=== PATIENT | female | born 1995 | race African-American/Black ===

== ENCOUNTER 2018-03-07 23:18 | Emergency (ER) | payer MEDICAID, OTHER, SELFPAY ==
--- NOTE | 2018-03-07 23:43 | ER ---
Nurse's Notes [facility] Name: Edmond Dewitt Age: 22 yrs Sex: Female : 1995 Arrival Date: 03/07/2018 Time: 23:26 Bed 23 Private MD: Diagnosis: Rash and other nonspecific skin eruption Presentation: 03/07 23:40 Presenting complaint: Patient states: she has rash on her breast for 2 days. Transition mg2 of care: patient was not received from another setting of care. Onset of symptoms was March 06, 2018. Risk Assessment: Do you want to hurt yourself or someone else? Patient reports no desire to harm self or others. Initial Sepsis Screen: Does the patient meet any 2 criteria? No. Patient's initial sepsis screen is negative. Does the patient have a suspected source of infection? No. Patient's initial sepsis screen is negative. Care prior to arrival: None. 23:40 Method Of Arrival: Ambulatory mg2 23:40 Acuity: SHADY 5 mg2 Triage Assessment: 23:43 General: Appears in no apparent distress. Behavior is calm, cooperative. 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 - Social history:: Smoking status: Patient/guardian denies using tobacco, Patient uses alcohol, occasionally. Patient/guardian denies using street drugs, IV drugs. - Ebola Screening: : No symptoms or risks identified at this time. Screenin:42 Abuse screen: Denies threats or abuse. Denies injuries from another. Nutritional mg2 screening: No deficits noted. Tuberculosis screening: No symptoms or risk factors identified. Fall Risk None identified. Assessment: 23:42 Pain: Denies pain. Derm: Skin is intact, is healthy with good turgor, Rash noted that mg2 is itchy, red, raised, urticaria, on chest/breast. Vital Signs: 23:40 Pulse 92; Resp 18; Temp 98.6(O); Pulse Ox 97% on R/A; Pain 0/10; mg2 ED Course: 23:26 Patient arrived in ED. ds1 23:28 Lorenzo Burnett [facility] 23:28 Pradip Walker MD is Attending Physician. [facility] 23:38 Donald Villeda, RN is Primary Nurse. mg2 23:40 Triage completed. mg2 23:42 Arm band placed on. mg2 23:43 Patient has correct armband on for positive identification. mg2 23:43 No provider procedures requiring assistance completed. Patient did not have IV access mg2 during this emergency room visit. Administered Medications: No medications were administered Outcome: 23:42 Discharge ordered by MD. [facility] 23:53 Discharged to home ambulatory, with family. mg2 23:53 Condition: stable 23:53 Discharge instructions given to patient, family, Instructed on discharge instructions, follow up and referral plans. medication usage, Demonstrated understanding of instructions, follow-up care, medications, Prescriptions given X 2. 23:54 Patient left the ED. mg2 Signatures: Lorenzo Burnett PA PA Yue Davison ds1 Donald Villeda, RN RN mg2
--- NOTE | 2018-03-07 23:43 | EDPHYS ---
Physician Documentation [facility] Name: Edmond Dewitt Age: 22 yrs Sex: Female : 1995 Arrival Date: 03/07/2018 Time: 23:26 Bed 23 Private MD: ED Physician Pradip Walker HPI: 03/07 23:41 This 22 yrs old Black Female presents to ER via Ambulatory with complaints of Rash. m 23:41 The patient's rash thought to be caused by an unknown cause. The rash is located on the [facility] body diffusely. Onset: The symptoms/episode began/occurred today. Associated signs and symptoms: Pertinent positives: itching, Pertinent negatives: difficulty breathing, fever, nausea, Pain swelling of lips, swelling of throat, swelling of tongue, vomiting, wheezing. Mother states having ongoing issues with scabbing rashes which itch. Symptoms have worsened today. . 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 - Social history:: Smoking status: Patient/guardian denies using tobacco, Patient uses alcohol, occasionally. Patient/guardian denies using street drugs, IV drugs. - Ebola Screening: : No symptoms or risks identified at this time. ROS: 23:41 Constitutional: Negative for fever, chills, and weight loss, Cardiovascular: Negative [facility] for chest pain, palpitations, and edema, Respiratory: Negative for shortness of breath, cough, wheezing, and pleuritic chest pain. 23:41 Skin: Positive for rash. 23:41 All other systems are negative. Exam: 23:41 Constitutional: This is a well developed, well nourished patient who is awake, alert, jmm and in no acute distress. Head/Face: atraumatic. Eyes: EOMI, no conjunctival erythema appreciated ENT: Moist Mucus Membranes Neck: Trachea midline, Supple Chest/axilla: Normal chest wall appearance and motion. Cardiovascular: Regular rate and rhythm. No edema appreciated Respiratory: Normal respirations, no respiratory distress appreciated Abdomen/GI: Non distended, soft Back: Normal ROM 23:41 Skin: multiple scabbing lesions noted to the extremities. Small papular erythematous regions noted to the chest, upper back and upper extremities. . 23:41 Neuro: Orientation: is normal, Mentation: is normal, Memory: is normal. 23:41 Psych: Behavior/mood is pleasant, cooperative. Vital Signs: 23:40 Pulse 92; Resp 18; Temp 98.6(O); Pulse Ox 97% on R/A; Pain 0/10; mg2 MDM: 23:41 Patient medically screened. [facility] 23:42 Data reviewed: vital signs, nurses notes. Counseling: I had a detailed discussion with jodie the patient and/or guardian regarding: the historical points, exam findings, and any diagnostic results supporting the discharge/admit diagnosis, the need for outpatient follow up, to return to the emergency department if symptoms worsen or persist or if there are any questions or concerns that arise at home. Administered Medications: No medications were administered Disposition: 03/08 05:29 Co-signature as Attending Physician, Pradip Walker MD I agree with the assessment and [facility] plan of care. Disposition: 03/07/18 23:42 Discharged to Home. Impression: Rash and other nonspecific skin eruption. - Condition is Stable. - Discharge Instructions: Rash. - Prescriptions for Elimite 5 % Topical Cream - apply 1 application by TOPICAL route one time Wash after 12 hours.; 60 gram. Hydroxyzine HCl 25 mg Oral Tablet - take 1 tablet by ORAL route every 6 hours As needed; 30 tablet. - Medication Reconciliation Form, Thank You Letter, Antibiotic Education, Prescription Opioid Use form. - Follow up: Private Physician; When: 2 - 3 days; Reason: Recheck today's complaints, Continuance of care, Re-evaluation by your physician. Signatures: Lorenzo Burnett PA PA jmm Wadley, Terrence, MD MD 4 Donald Villeda RN RN mg2 Corrections: (The following items were deleted from the chart) 03/07 23:54 23:42 03/07/2018 23:42 Discharged to Home. Impression: Rash and other nonspecific skin mg2 eruption. Condition is Stable. Forms are Medication Reconciliation Form, Thank You Letter, Antibiotic Education, Prescription Opioid Use. Follow up: Private Physician; When: 2 - 3 days; Reason: Recheck today's complaints, Continuance of care, Re-evaluation by your physician. jodie
== END 2018-03-07 23:54 | disposition home or self-care (01) ==
LOC: ER 23:18
DX: R21 Rash and other nonspecific skin eruption (principal); Z79.82 Long term (current) use of aspirin; Z79.899 Other long term (current) drug therapy
CPT/HCPCS: 99281

== ENCOUNTER 2018-04-02 09:45 | Emergency (ER) | payer OTHER ==
[2018-04-02 11:32] LABS: Urine Blood TRACE (NEG); Urine Glucose NEGATIVE (NEG); Urine Protein NEGATIVE (NEG)
--- NOTE | 2018-04-02 11:56 | RAD REPORT ---
EXAM DESCRIPTION: Yves Michael (2 Views)04/02/2018 11:22 am CLINICAL HISTORY: Cough COMPARISON: April 2017 FINDINGS: The lungs appear clear of acute infiltrate. The heart is normal size IMPRESSION: No acute abnormalities displayed
[2018-04-02] MEDS ORDERED: PROMETHAZINE 25 MG/ML VIAL ONE (12:06)
[2018-04-02] MEDS ORDERED: PROMETHAZINE 25 MG TABLET ONE (12:11)
--- NOTE | 2018-04-02 12:19 | ER ---
Nurse's Notes [facility] Name: Edmond Dewitt Age: 23 yrs Sex: Female : 1995 Arrival Date: 04/02/2018 Time: 09:46 Bed 13 Private MD: Apolinar Talavera E Diagnosis: Acute bronchitis Presentation: 04/02 10:05 Presenting complaint: Patient states: Pt. has had a dry cough x 3 days and now her rb1 chest hurts when she is coughing. Pain 8/10. Transition of care: patient was not received from another setting of care. Onset of symptoms was March 30, 2018. Risk Assessment: Do you want to hurt yourself or someone else? Patient reports no desire to harm self or others. Initial Sepsis Screen: Does the patient meet any 2 criteria? No. Patient's initial sepsis screen is negative. Does the patient have a suspected source of infection? No. Patient's initial sepsis screen is negative. Care prior to arrival: None. 10:05 Method Of Arrival: Ambulatory rb1 10:05 Acuity: SHADY 3 rb1 Triage Assessment: 10:06 General: Appears in no apparent distress. comfortable, obese, Behavior is calm, rb1 cooperative, Reports fever for 2-3 days. Pain: Complains of pain in chest Pain currently is 8 out of 10 on a pain scale. Aggravated by coughing. Neuro: Level of Consciousness is awake, alert, obeys commands, Oriented to person, place, time, situation. Cardiovascular: Capillary refill < 3 seconds is brisk in bilateral fingers. Respiratory: Reports cough that is dry, pain with cough Pain is 8 out of 10 on a pain scale. Airway is patent Respiratory effort is even, unlabored, Respiratory pattern is regular, symmetrical. GI: Reports nausea. : No signs and/or symptoms were reported regarding the genitourinary system. Derm: Skin is dry, Skin is normal, Skin temperature is warm. 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 - Social history:: Smoking status: Patient/guardian denies using tobacco. - Ebola Screening: : Patient negative for fever greater than or equal to 101.5 degrees Fahrenheit, and additional compatible Ebola Virus Disease symptoms. Screenin:06 Abuse screen: Denies threats or abuse. Nutritional screening: No deficits noted. rb1 Tuberculosis screening: No symptoms or risk factors identified. Fall Risk None identified. Assessment: 10:06 General: See triage assessment. rb1 11:00 Reassessment: Patient appears in no apparent distress at this time. No changes from rb1 previously documented assessment. 12:00 Reassessment: Pt. c/o of nausea, provider notified. Received order for Phenergan 12.5 rb1 mg PO once. 100% verbal read back. Vital Signs: 10:06 BP 124 / 93; Pulse 73; Resp 19; Temp 99(O); Pulse Ox 100% on R/A; Weight 107.95 kg (R); rb1 Height 5 ft. 2 in. (157.48 cm) (R); Pain 8/10; 11:00 BP 135 / 83; Pulse 73; Resp 17; Pulse Ox 100% on R/A; rb1 12:00 BP 126 / 85; Pulse 70; Resp 19; Pulse Ox 100% ; Pain 7/10; rb1 12:39 BP 126 / 85; Pulse 77; Resp 17; Pulse Ox 100% on R/A; rb1 10:06 Body Mass Index 43.53 (107.95 kg, 157.48 cm) rb1 12:00 Pt. does not want anything for pain at this time. rb1 ED Course: 09:46 Patient arrived in ED. sb2 09:47 Apolinar Talavera MD is Private Physician. sb2 10:06 Jarvis Worrell LVN is Primary Nurse. em 10:06 Arm band placed on right wrist. rb1 10:06 Patient has correct armband on for positive identification. Bed in low position. Call rb1 light in reach. Side rails up X 1. Pulse ox on. NIBP on. 10:10 Mickail, Lorenzo, PA is PHCP. jmm 10:10 Kaiser Foss MD is Attending Physician. m 10:10 Triage completed. rb1 10:18 Jenn Nevarez, RN is Primary Nurse. rb1 11:00 Warm blanket given. Pillow given. jp3 11:20 Chest Pa And Lat (2 Views) In Process Unspecified. EDMS 11:55 EKG done, by ED staff, reviewed by Lorenzo WHITE. jp3 12:17 Apolinar Talavera MD is Referral Physician. jmm 12:34 Diet: Patient given snack. Tolerated well. jp3 12:41 No provider procedures requiring assistance completed. Patient did not have IV access rb1 during this emergency room visit. Administered Medications: 12:07 Drug: Phenergan 12.5 mg Route: PO; rb1 12:40 Follow up: Response: No adverse reaction; Nausea is decreased rb1 Outcome: 12:17 Discharge ordered by MD. jmm 12:41 Patient left the ED. rb1 12:41 Discharged to home ambulatory. rb1 12:41 Condition: stable 12:41 Discharge instructions given to patient, Instructed on discharge instructions, follow up and referral plans. medication usage, Demonstrated understanding of instructions, follow-up care, medications, Prescriptions given X 2. Signatures: Dispatcher [employer]IN Lorenzo Burnett PA PA [facility] Jarvis Worrell, MANAGER ONLINE MANAGER ONLINE em Jenn Nevraez, RN RN rb1 Gracy Deleon sb2 Chavez Felix jp3 Corrections: (The following items were deleted from the chart) 12:53 12:51 Patient left the ED. rb1 rb1
--- NOTE | 2018-04-02 12:19 | EDPHYS ---
Physician Documentation [facility] Name: Edmond Dewitt Age: 23 yrs Sex: Female : 1995 Arrival Date: 04/02/2018 Time: 09:46 Bed 13 Private MD: Apolinar Talavera E ED Physician Kaiser Foss HPI: 04/02 10:29 This 23 yrs old Black Female presents to ER via Ambulatory with complaints of Cough, jmm Chest Congestion. 10:29 The patient or guardian reports cough. Onset: The symptoms/episode began/occurred jmm gradually, 3 day(s) ago. Associated signs and symptoms: Pertinent positives: chest pain. This is a 23 year old female with a history of CHF, migraines presents to the ED with cough for 3 days, sore throat, chest pain with cough. 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 . 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 - Social history:: Smoking status: Patient/guardian denies using tobacco. - Ebola Screening: : Patient negative for fever greater than or equal to 101.5 degrees Fahrenheit, and additional compatible Ebola Virus Disease symptoms. ROS: 10:29 Neck: Negative for injury, pain, and swelling. jmm 10:29 Abdomen/GI: Negative for abdominal pain, nausea, vomiting, diarrhea, and constipation, Back: Negative for injury and pain, MS/Extremity: Negative for injury and deformity, Skin: Negative for injury, rash, and discoloration. 10:29 Constitutional: Positive for fatigue. 10:29 ENT: Positive for sore throat. 10:29 Cardiovascular: Positive for chest pain. 10:29 Respiratory: Positive for cough. 10:29 All other systems are negative. Exam: 10:29 Constitutional: This is a well developed, well nourished patient who is awake, alert, jmm and in no acute distress. Head/Face: atraumatic. Eyes: EOMI, no conjunctival erythema appreciated Neck: Trachea midline, Supple Chest/axilla: Normal chest wall appearance and motion. 10:29 Back: Normal ROM Skin: General appearance color normal MS/ Extremity: Moves all extremities, no obvious deformities appreciated, no edema noted to the lower extremities Neuro: Awake and alert, normal gait Psych: Behavior is normal, Mood is normal, Patient is cooperative and pleasant 10:29 Cardiovascular: Rate: normal, Rhythm: regular. 10:29 Respiratory: the patient does not display signs of respiratory distress, Respirations: normal, Breath sounds: are clear throughout. 10:29 Abdomen/GI: Vital Signs: 10:06 BP 124 / 93; Pulse 73; Resp 19; Temp 99(O); Pulse Ox 100% on R/A; Weight 107.95 kg (R); rb1 Height 5 ft. 2 in. (157.48 cm) (R); Pain 8/10; 11:00 BP 135 / 83; Pulse 73; Resp 17; Pulse Ox 100% on R/A; rb1 12:00 BP 126 / 85; Pulse 70; Resp 19; Pulse Ox 100% ; Pain 7/10; rb1 12:39 BP 126 / 85; Pulse 77; Resp 17; Pulse Ox 100% on R/A; rb1 10:06 Body Mass Index 43.53 (107.95 kg, 157.48 cm) rb1 12:00 Pt. does not want anything for pain at this time. rb1 MDM: 10:21 Patient medically screened. [facility] 12:15 Data reviewed: vital signs, nurses notes, lab test result(s), radiologic studies, plain [facility] films. Data interpreted: Pulse oximetry: on room air is 100 %. Interpretation: normal. Counseling: I had a detailed discussion with the patient and/or guardian regarding: the historical points, exam findings, and any diagnostic results supporting the discharge/admit diagnosis, the presence of at least one elevated blood pressure reading (>120/80) during this emergency department visit, lab results, radiology results, the need for outpatient follow up, to return to the emergency department if symptoms worsen or persist or if there are any questions or concerns that arise at home. ED course: Patient is alert and non toxic in appearance in the ED. CP appears most likely secondary to cough. Normal vitals, I do not currently suspect PE or ACS. CXR clear. Patient is advised to follow up with PCP for further evaluation. patient is otherwise given strict return precautions. Patient understood and agrees with the plan of care. . 04/02 10:42 Order name: Influenza Screen (A ; Complete Time: 11:49 EDME 04/02 10:39 Order name: Chest Pa And Lat (2 Views); Complete Time: 12:02 [facility] 04/02 10:51 Order name: Urine Dipstick--Ancillary (enter results); Complete Time: 11:37 lt1 04/02 10:52 Order name: Urine --Ancillary (enter results); Complete Time: 11:37 lt1 04/02 10:25 Order name: EKG - Nurse/Tech; Complete Time: 11:59 [facility] 04/02 10:26 Order name: Urine Test (obtain specimen); Complete Time: 10:51 [facility] 04/02 10:26 Order name: Urine Dipstick-Ancillary (obtain specimen); Complete Time: 10:51 [facility] Administered Medications: 12:07 Drug: Phenergan 12.5 mg Route: PO; rb1 12:40 Follow up: Response: No adverse reaction; Nausea is decreased rb1 Disposition: 04/03 07:47 Co-signature as Attending Physician, Kaiser Foss MD. Disposition: 04/02/18 12:17 Discharged to Home. Impression: Acute bronchitis. - Condition is Stable. - Discharge Instructions: Acute Bronchitis, Adult. - Prescriptions for Prednisone 20 mg Oral Tablet - take 2 tablets by ORAL route once daily for 3 days; 6 tablet. promethazine 25 mg Oral Tablet - take 1 tablet by ORAL route every 6 hours As needed; 20 tablet. - Medication Reconciliation Form, Thank You Letter, Antibiotic Education, Prescription Opioid Use form. - Follow up: Apolinar Talavera MD; When: 2 - 3 days; Reason: Recheck today's complaints, Continuance of care, Re-evaluation by your physician. Signatures: Dispatcher [facility] Lorenzo Burnett PA PA jmm Barber, Rebecca, RN RN rb1 Kaiser Foss MD MD gs Corrections: (The following items were deleted from the chart) 04/02 11:33 11:24 Influenza Screen (A \T\ B)+[id number].LAB.BRZ ordered. EDME EDMS 11:34 11:24 Chest Pa And Lat (2 Views)+RAD.RAD.BRZ ordered. EDME EDMS 12:51 12:17 04/02/2018 12:17 Discharged to Home. Impression: Acute bronchitis. Condition is rb1 Stable. Forms are Medication Reconciliation Form, Thank You Letter, Antibiotic Education, Prescription Opioid Use. Follow up: Apolinar Talavera; When: 2 - 3 days; Reason: Recheck today's complaints, Continuance of care, Re-evaluation by your physician. jodie
--- NOTE | 2018-04-03 11:33 | EKG ---
Test Date: 2018-04-02 Test Time: 11:50:16 Cloth Trimmer Hand: OSMIN MEASUREMENT RESULTS: Intervals: Rate: 64 OH: 152 QRSD: 78 QT: 392 QTc: 404 Waddell: P: 40 OH: 152 QRS: 32 T: 30 INTERPRETIVE STATEMENTS: Normal sinus rhythm Normal ECG No previous ECG available for comparison Electronically Signed On 04-03-18 11:32:11 SYSTEMS SUPPORT OFFICER by Anton Reis
== END 2018-04-02 12:51 | disposition home or self-care (01) ==
LOC: ER 09:45
DX: J20.9 Acute bronchitis, unspecified (principal); I50.9 Heart failure, unspecified; Z79.82 Long term (current) use of aspirin; Z88.2 Allergy status to sulfonamides; Z88.5 Allergy status to narcotic agent; Z88.6 Allergy status to analgesic agent; Z88.8 Allergy status to other drugs, medicaments and biological substances
CPT/HCPCS: 71046; 81003; 81025; 87804; 93005; 99284; J2550

== ENCOUNTER 2018-05-02 14:39 | Emergency (ER) | payer OTHER ==
--- NOTE | 2018-05-02 16:18 | EDPHYS ---
Physician Documentation [facility] Name: Edmond Dewitt Age: 23 yrs Sex: Female : 1995 Arrival Date: 05/02/2018 Time: 14:41 Bed 18 Private MD: Apolinar Talavera E ED Physician Qamar Bland HPI: 05/02 15:37 This 23 yrs old Black Female presents to ER via Ambulatory with complaints of Nausea, jana Vomiting, Chills. 15:37 The patient presents to the emergency department with nausea, vomiting, that is jana intermittent. Onset: The symptoms/episode began/occurred 2 day(s) ago. Possible causes: unknown. The symptoms are aggravated by nothing. The symptoms are alleviated by nothing. Associated signs and symptoms: The patient has no apparent associated signs or symptoms. Severity of symptoms: At their worst the symptoms were mild in the emergency department the symptoms are unchanged. The patient has not experienced similar symptoms in the past. 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 - Social history:: Smoking status: Patient/guardian denies using tobacco, Patient/guardian denies using alcohol. - Ebola Screening: : Patient negative for fever greater than or equal to 101.5 degrees Fahrenheit, and additional compatible Ebola Virus Disease symptoms Patient denies exposure to infectious person Patient denies travel to an Ebola-affected area in the 21 days before illness onset. ROS: 15:38 Constitutional: Negative for fever, chills, and weight loss, Eyes: Negative for injury, jana pain, redness, and discharge, ENT: Negative for injury, pain, and discharge, Neck: Negative for injury, pain, and swelling, Cardiovascular: Negative for chest pain, palpitations, and edema, Respiratory: Negative for shortness of breath, cough, wheezing, and pleuritic chest pain, Back: Negative for injury and pain, : Negative for injury, bleeding, discharge, and swelling, MS/Extremity: Negative for injury and deformity, Skin: Negative for injury, rash, and discoloration, Neuro: Negative for headache, weakness, numbness, tingling, and seizure, Psych: Negative for depression, anxiety, suicide ideation, homicidal ideation, and hallucinations, Allergy/Immunology: Negative for hives, rash, and allergies, Endocrine: Negative for neck swelling, polydipsia, polyuria, polyphagia, and marked weight changes, Hematologic/Lymphatic: Negative for swollen nodes, abnormal bleeding, and unusual bruising. 15:38 Abdomen/GI: Positive for nausea and vomiting. Exam: 15:38 Constitutional: This is a well developed, well nourished patient who is awake, alert, jana and in no acute distress. Head/Face: Normocephalic, atraumatic. Eyes: Pupils equal round and reactive to light, extra-ocular motions intact. Lids and lashes normal. Conjunctiva and sclera are non-icteric and not injected. Cornea within normal limits. Periorbital areas with no swelling, redness, or edema. ENT: Nares patent. No nasal discharge, no septal abnormalities noted. Tympanic membranes are normal and external auditory canals are clear. Oropharynx with no redness, swelling, or masses, exudates, or evidence of obstruction, uvula midline. Mucous membranes moist. Neck: Trachea midline, no thyromegaly or masses palpated, and no cervical lymphadenopathy. Supple, full range of motion without nuchal rigidity, or vertebral point tenderness. No Meningismus. Chest/axilla: Normal chest wall appearance and motion. Nontender with no deformity. No lesions are appreciated. Cardiovascular: Regular rate and rhythm with a normal S1 and S2. No gallops, murmurs, or rubs. Normal PMI, no JVD. No pulse deficits. Respiratory: Lungs have equal breath sounds bilaterally, clear to auscultation and percussion. No rales, rhonchi or wheezes noted. No increased work of breathing, no retractions or nasal flaring. Abdomen/GI: Soft, non-tender, with normal bowel sounds. No distension or tympany. No guarding or rebound. No evidence of tenderness throughout. Back: No spinal tenderness. No costovertebral tenderness. Full range of motion. Skin: Warm, dry with normal turgor. Normal color with no rashes, no lesions, and no evidence of cellulitis. MS/ Extremity: Pulses equal, no cyanosis. Neurovascular intact. Full, normal range of motion. Neuro: Awake and alert, GCS 15, oriented to person, place, time, and situation. Cranial nerves II-XII grossly intact. Motor strength 5/5 in all extremities. Sensory grossly intact. Cerebellar exam normal. Normal gait. Vital Signs: 14:59 BP 135 / 80; Pulse 78; Resp 18; Temp 97.8(TE); Pulse Ox 99% on R/A; Weight 108.86 kg; hj Height 5 ft. 2 in. (157.48 cm); Pain 5/10; 14:59 Body Mass Index 43.90 (108.86 kg, 157.48 cm) MDM: 15:21 Patient medically screened. [facility] [place] 15:39 Data reviewed: vital signs, nurses notes, lab test result(s). [facility] [place] 05/02 16:20 Order name: Urine Dipstick--Ancillary (enter results) 05/02 16:20 Order name: Urine --Ancillary (enter results) 05/02 15:34 Order name: Urine Dipstick-Ancillary (obtain specimen); Complete Time: 16:12 [facility] [place] 05/02 15:34 Order name: Urine Test (obtain specimen); Complete Time: 16:12 [facility] [place] Administered Medications: No medications were administered Disposition: 05/02/18 16:17 Discharged to Home. Impression: Vomiting, Nausea and vomiting. - Condition is Stable. - Discharge Instructions: Nausea and Vomiting, Adult, Nausea and Vomiting, Adult, [id number]. - Prescriptions for Phenergan 25 mg Rectal Suppository - insert 1 suppository by RECTAL route every 6 hours As needed; 12 suppository. promethazine 25 mg Oral Tablet - take 1 tablet by ORAL route every 6 hours As needed; 20 tablet. - Medication Reconciliation Form, Thank You Letter, Antibiotic Education, Prescription Opioid Use form. - Follow up: Apolinar Talavera MD; When: 2 - 3 days; Reason: Recheck today's complaints, Continuance of care, Re-evaluation by your physician. - Problem is new. - Symptoms have improved. Signatures: Dispatcher [employer] EDQamar Branch MD MD cha Joaquin, Henry, RN RN Ariana Wolff RN RN Corrections: (The following items were deleted from the chart) 16:31 16:17 05/02/2018 16:17 Discharged to Home. Impression: Vomiting; Nausea and vomiting. hb Condition is Stable. Forms are Medication Reconciliation Form, Thank You Letter, Antibiotic Education, Prescription Opioid Use. Follow up: Apolinar Talavera; When: 2 - 3 days; Reason: Recheck today's complaints, Continuance of care, Re-evaluation by your physician. Problem is new. Symptoms have improved. jana
--- NOTE | 2018-05-02 16:18 | ER ---
Nurse's Notes [facility] Name: Edmond Dewitt Age: 23 yrs Sex: Female : 1995 Arrival Date: 05/02/2018 Time: 14:41 Bed 18 Private MD: Apolinar Talavera E Diagnosis: Vomiting;Nausea and vomiting Presentation: 05/02 14:56 Presenting complaint: Patient states: shaye been throwing 3 days straight and im having hj chills; reports abd pain; denies diarrhea took Phenergan this AM;. Transition of care: patient was not received from another setting of care. Onset of symptoms was May 02, 2018. Risk Assessment: Do you want to hurt yourself or someone else? Patient reports no desire to harm self or others. Initial Sepsis Screen: Does the patient meet any 2 criteria? No. Patient's initial sepsis screen is negative. Does the patient have a suspected source of infection? No. Patient's initial sepsis screen is negative. Care prior to arrival: None. 14:56 Method Of Arrival: Ambulatory 14:56 Acuity: SHADY 3 hj Triage Assessment: 14:59 General: Appears in no apparent distress. uncomfortable, Behavior is calm, cooperative, hj appropriate for age. Pain: Complains of pain in abdomen. GI: Reports nausea, vomiting. 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 - Social history:: Smoking status: Patient/guardian denies using tobacco, Patient/guardian denies using alcohol. - Ebola Screening: : Patient negative for fever greater than or equal to 101.5 degrees Fahrenheit, and additional compatible Ebola Virus Disease symptoms Patient denies exposure to infectious person Patient denies travel to an Ebola-affected area in the 21 days before illness onset. Screenin:59 Abuse screen: Denies threats or abuse. Denies injuries from another. Nutritional hj screening: No deficits noted. Tuberculosis screening: No symptoms or risk factors identified. Fall Risk None identified. Assessment: 14:59 GI: Abdomen is. hj 15:45 General: Appears in no apparent distress. Behavior is calm, cooperative. Pain: Denies hb pain. Neuro: Level of Consciousness is awake, alert, obeys commands, Oriented to person, place, time, situation. Cardiovascular: Capillary refill < 3 seconds Patient's skin is warm and dry. Respiratory: Airway is patent Respiratory effort is even, unlabored, Respiratory pattern is regular, symmetrical. GI: Abdomen is non-distended, Bowel sounds present X 4 quads. Abd is soft and non tender X 4 quads. Reports nausea. : No signs and/or symptoms were reported regarding the genitourinary system. EENT: No signs and/or symptoms were reported regarding the EENT system. Derm: Skin is intact, is healthy with good turgor. Musculoskeletal: No signs and/or symptoms reported regarding the musculoskeletal system. Vital Signs: 14:59 BP 135 / 80; Pulse 78; Resp 18; Temp 97.8(TE); Pulse Ox 99% on R/A; Weight 108.86 kg; hj Height 5 ft. 2 in. (157.48 cm); Pain 5/10; 14:59 Body Mass Index 43.90 (108.86 kg, 157.48 cm) ED Course: 14:41 Patient arrived in ED. rg4 14:42 Apolinar Talavera MD is Private Physician. rg4 14:58 Triage completed. hj 14:59 Arm band placed on right wrist. hj 15:00 Patient has correct armband on for positive identification. Placed in gown. Bed in low hj position. Call light in reach. Side rails up X 1. Adult w/ patient. 15:21 Qamar Bland MD is Attending Physician. jana 16:11 Urine collected: clean catch specimen, clear. mh5 16:17 Apolinar Talavera MD is Referral Physician. jana 16:29 Ariana Wolff, KRIS is Primary Nurse. hb 16:30 No provider procedures requiring assistance completed. Patient did not have IV access hb during this emergency room visit. Administered Medications: No medications were administered Outcome: 16:17 Discharge ordered by . jana 16:30 Discharged to home ambulatory. hb 16:30 Condition: stable 16:30 Discharge instructions given to patient, Instructed on discharge instructions, follow up and referral plans. medication usage, Demonstrated understanding of instructions, follow-up care, medications, Prescriptions given X 2. 16:31 Patient left the ED. hb Signatures: Qamar Bland MD MD cha Joaquin, Henry, RN RN Ariana Membreno RN RN Elaine Elena [facility] Jessica Garvin [facility] Corrections: (The following items were deleted from the chart) 15:02 14:59 Pulse 78bpm; Resp 18bpm; Pulse Ox 99% RA; Temp 97.8F Temporal; 108.86 kg; Height hj 5 ft. 2 in.; BMI: 43.9; Pain 5/10; hj
[2018-05-02 16:38] LABS: Urine Blood NEGATIVE (NEG); Urine Glucose NEGATIVE (NEG); Urine Protein NEGATIVE (NEG); Urine Specific Gravity 1.025 (1.005-1.030); Urine pH 5.5 (5.0-7.0)
== END 2018-05-02 16:31 | disposition home or self-care (01) ==
LOC: ER 14:39
DX: R11.2 Nausea with vomiting, unspecified (principal); G43.909 Migraine, unspecified, not intractable, without status migrainosus; I50.9 Heart failure, unspecified; Z88.8 Allergy status to other drugs, medicaments and biological substances; Z88.2 Allergy status to sulfonamides; Z88.6 Allergy status to analgesic agent
CPT/HCPCS: 81003; 81025; 99283

== ENCOUNTER 2018-05-07 00:42 | Emergency (ER) | payer OTHER ==
--- NOTE | 2018-05-07 02:11 | ER ---
Nurse's Notes [facility] Name: Edmond Dewitt Age: 23 yrs Sex: Female : 1995 Arrival Date: 05/07/2018 Time: 00:43 Bed 19 Private MD: Diagnosis: Abdominal and pelvic pain Presentation: 05/07 00:56 Presenting complaint: Patient states: she was here on the for similar symptoms of bb nausea and vomiting but now she is also having abdominal pain and vaginal pain. Transition of care: patient was not received from another setting of care. Onset of symptoms was May 07, 2018. Risk Assessment: Do you want to hurt yourself or someone else? Patient reports no desire to harm self or others. Initial Sepsis Screen: Does the patient meet any 2 criteria? No. Patient's initial sepsis screen is negative. Does the patient have a suspected source of infection? No. Patient's initial sepsis screen is negative. Care prior to arrival: None. 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 - Social history:: Smoking status: Patient/guardian denies using tobacco, Patient uses alcohol, occasionally. - Ebola Screening: : No symptoms or risks identified at this time. Screenin:20 Abuse screen: Denies threats or abuse. Nutritional screening: No deficits noted. tl2 Tuberculosis screening: No symptoms or risk factors identified. Fall Risk None identified. Assessment: 01:20 General: Appears in no apparent distress. comfortable, Behavior is calm, cooperative, tl2 appropriate for age. Pain: Complains of pain in suprapubic area. Neuro: Level of Consciousness is awake, alert, obeys commands, Oriented to person, place, time, situation. Cardiovascular: Denies chest pain. Respiratory: Airway is patent Respiratory effort is even, unlabored, Respiratory pattern is regular, symmetrical. GI: Bowel sounds present X 4 quads. Abd is soft and non tender Reports nausea, vomiting. : Denies vaginal bleeding. Derm: Skin is pink, warm \T\ dry. 02:37 Reassessment: Patient appears in no apparent distress at this time. Patient and/or tl2 family updated on plan of care and expected duration. Pain level reassessed. Patient is alert, oriented x 3, equal unlabored respirations, skin warm/dry/pink. pt verbalized understanding of discharge instructions, need for follow up. Vital Signs: 01:01 BP 128 / 70; Pulse 93; Resp 16 S; Temp 98.3(O); Pulse Ox 100% on R/A; Weight 108.86 kg bb (R); Height 5 ft. 2 in. (157.48 cm) (R); Pain 6/10; 02:37 BP 125 / 79; Pulse 90; Resp 18; Pulse Ox 99% on R/A; tl2 01:01 Body Mass Index 43.90 (108.86 kg, 157.48 cm) bb ED Course: 00:43 Patient arrived in ED. ag3 00:54 [facility] kb 00:54 Kaiser Foss MD is Attending Physician. kb 00:55 Laura Eason, KRIS is Primary Nurse. tl2 00:58 Triage completed. bb 01:01 Arm band placed on Patient placed in an exam room, on a stretcher, on pulse oximetry. bb 01:20 Patient has correct armband on for positive identification. Placed in gown. Bed in low tl2 position. Call light in reach. Side rails up X 1. 02:37 No provider procedures requiring assistance completed. Patient did not have IV access tl2 during this emergency room visit. Administered Medications: No medications were administered Outcome: 02:11 Discharge ordered by . kb 02:37 Discharged to home ambulatory. tl2 02:37 Condition: stable 02:37 Discharge instructions given to patient, Instructed on discharge instructions, follow up and referral plans. Demonstrated understanding of instructions, follow-up care. 02:38 Patient left the ED. tl2 Signatures: Perla Dewitt, Georgina Valentine RN RN bb Laura Eason RN RN tl2 Modesta Connolly ag3
--- NOTE | 2018-05-07 02:12 | EDPHYS ---
Physician Documentation [facility] Name: Edmond Dewitt Age: 23 yrs Sex: Female : 1995 Arrival Date: 05/07/2018 Time: 00:43 Bed 19 Private MD: ED Physician Kaiser Foss HPI: 05/07 01:24 This 23 yrs old Black Female presents to ER via Ambulatory with complaints of Abdominal kb Pain. 01:24 The patient presents with abdominal pain in the lower abdomen. Onset: The kb symptoms/episode began/occurred last week. The symptoms do not radiate. Associated signs and symptoms: Pertinent positives: nausea, vomiting, and diarrhea. The symptoms are described as discomfort. Modifying factors: The symptoms are alleviated by nothing, the symptoms are aggravated by nothing. Severity of pain: At its worst the pain was mild in the emergency department the pain is unchanged. The patient has experienced similar episodes in the past, a few times. The patient has not recently seen a physician. Pt states she was seen here for lower abd pain/vaginal discomfort, n/v/d a few days ago. States n/v/d has gotten better, but the discomfort has continued. States she has had this feeling two other times before, once was a UTI and the other time she was . Reports Dr Bland told her the test they did last time was negative so she needed to repeat one in a few days. The one she took at home was invalid so she came to get it tested here. . 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 - Social history:: Smoking status: Patient/guardian denies using tobacco, Patient uses alcohol, occasionally. - Ebola Screening: : No symptoms or risks identified at this time. ROS: 01:22 Constitutional: Negative for fever, chills, and weight loss, Cardiovascular: Negative kb for chest pain, palpitations, and edema, Respiratory: Negative for shortness of breath, cough, wheezing, and pleuritic chest pain, Back: Negative for injury and pain, MS/Extremity: Negative for injury and deformity, Skin: Negative for injury, rash, and discoloration, Neuro: Negative for headache, weakness, numbness, tingling, and seizure. 01:22 Abdomen/GI: Positive for abdominal pain, nausea and vomiting. : : Positive for vaginal discomfort. Exam: :23 Constitutional: This is a well developed, well nourished patient who is awake, alert, kb and in no acute distress. Head/Face: Normocephalic, atraumatic. Chest/axilla: Normal chest wall appearance and motion. Nontender with no deformity. No lesions are appreciated. Cardiovascular: Regular rate and rhythm with a normal S1 and S2. No gallops, murmurs, or rubs. Normal PMI, no JVD. No pulse deficits. Respiratory: Lungs have equal breath sounds bilaterally, clear to auscultation and percussion. No rales, rhonchi or wheezes noted. No increased work of breathing, no retractions or nasal flaring. Skin: Warm, dry with normal turgor. Normal color with no rashes, no lesions, and no evidence of cellulitis. MS/ Extremity: Pulses equal, no cyanosis. Neurovascular intact. Full, normal range of motion. Neuro: Awake and alert, GCS 15, oriented to person, place, time, and situation. Cranial nerves II-XII grossly intact. Motor strength 5/5 in all extremities. Sensory grossly intact. Cerebellar exam normal. Normal gait. :23 Abdomen/GI: Inspection: abdomen appears normal, Bowel sounds: normal, in all quadrants, Palpation: soft, in all quadrants, mild abdominal tenderness, in the suprapubic area. Vital Signs: 01:01 BP 128 / 70; Pulse 93; Resp 16 S; Temp 98.3(O); Pulse Ox 100% on R/A; Weight 108.86 kg bb (R); Height 5 ft. 2 in. (157.48 cm) (R); Pain 6/10; 02:37 BP 125 / 79; Pulse 90; Resp 18; Pulse Ox 99% on R/A; tl2 01:01 Body Mass Index 43.90 (108.86 kg, 157.48 cm) bb MDM: 00:54 Patient medically screened. kb 01:23 Data reviewed: vital signs, nurses notes. Data interpreted: Pulse oximetry: on room air kb is 100 %. Interpretation: normal. 02:10 Counseling: I had a detailed discussion with the patient and/or guardian regarding: the kb historical points, exam findings, and any diagnostic results supporting the discharge/admit diagnosis, lab results, the need for outpatient follow up, an OB/Gyne specialist, to return to the emergency department if symptoms worsen or persist or if there are any questions or concerns that arise at home. ED course: Pt tolerating PO intake. 05/07 01:47 Order name: Urine Dipstick--Ancillary (enter results) [facility] 05/07 01:47 Order name: Urine --Ancillary (enter results) [facility] 05/07 01:10 Order name: Urine Dipstick-Ancillary (obtain specimen); Complete Time: 02:07 kb 05/07 01:10 Order name: Urine Test (obtain specimen); Complete Time: 02:07 kb Administered Medications: No medications were administered Disposition: 05/07/18 02:11 Discharged to Home. Impression: Abdominal and pelvic pain. - Condition is Stable. - Discharge Instructions: Pelvic Pain, Female, [id number]. - Medication Reconciliation Form, Thank You Letter, Antibiotic Education, Prescription Opioid Use form. - Follow up: Emergency Department; When: As needed; Reason: Worsening of condition. Follow up: Private Physician; When: 2 - 3 days; Reason: Recheck today's complaints, Continuance of care, Re-evaluation by your physician. Addendum: 05/14/2018 03:28 Co-signature as Attending Physician, Kaiser Foss MD. g s Signatures: Dispatcher [employer] EDMD Perla Dewitt, Georgina Valentine RN RN Laura Agee RN RN 2 Kaiser Foss MD MD Corrections: (The following items were deleted from the chart) 05/07 02:38 02:11 05/07/2018 02:11 Discharged to Home. Impression: Abdominal and pelvic pain. tl2 Condition is Stable. Forms are Medication Reconciliation Form, Thank You Letter, Antibiotic Education, Prescription Opioid Use. Follow up: Emergency Department; When: As needed; Reason: Worsening of condition. Follow up: Private Physician; When: 2 - 3 days; Reason: Recheck today's complaints, Continuance of care, Re-evaluation by your physician. kb
[2018-05-07 04:03] LABS: Urine Blood TRACE (NEG); Urine Glucose NEGATIVE (NEG); Urine Protein NEGATIVE (NEG); Urine Specific Gravity >1.030 (1.005-1.030); Urine pH 5.5 (5.0-7.0)
== END 2018-05-07 02:38 | disposition home or self-care (01) ==
LOC: ER 00:42
DX: R10.2 Pelvic and perineal pain (principal); Z88.6 Allergy status to analgesic agent; Z88.2 Allergy status to sulfonamides; Z88.8 Allergy status to other drugs, medicaments and biological substances
CPT/HCPCS: 81003; 81025

== ENCOUNTER 2018-06-24 08:52 | Emergency (ER) | payer OTHER ==
--- OUTSIDE RECORDS SUMMARY | 2018-06-24 08:55 | XMS REPORT ---
:1995 [facility] Address [address] López [address] [place] [id number] Care Team Providers Name Role Phone Unavailable Unavailable Unavailable Problems This patient has no known problems. Allergies, Adverse Reactions, Alerts This patient has no known allergies or adverse reactions. Medications This patient has no known medications.
--- NOTE | 2018-06-24 11:01 | RAD REPORT ---
EXAM DESCRIPTION: RAD - Chest Single View - 06/24/2018 10:57 am CLINICAL HISTORY: Chest pain;Cough Chest pain. COMPARISON: Chest Pa And Lat (2 Views) dated 04/02/2018; Chest Single View dated 05/14/2017; Chest Si ngle View dated 09/06/2015; CHEST PA AND LAT 2 VIEW dated 03/02/2015 FINDINGS: Portable technique limits examination quality. The lungs are grossly clear. The heart is normal in size. No displaced fractures. IMPRESSION: No acute intrathoracic process suspected.
[2018-06-24 11:28] LABS: Urine Blood TRACE (NEG); Urine Glucose NEGATIVE (NEG); Urine Protein NEGATIVE (NEG); Urine pH 8.5 (5.0-7.0)
--- NOTE | 2018-06-24 11:52 | EDPHYS ---
Physician Documentation [facility] Name: Edmond Dewitt Age: 23 yrs Sex: Female : 1995 Arrival Date: 06/24/2018 Time: 08:55 Bed 5 Private MD: ED Physician Cristi Cruz HPI: 06/24 19:41 This 23 yrs old Black Female presents to ER via Ambulatory with complaints of Cough, kdr Pain All Over. 19:41 The patient or guardian reports cough, that is intermittent, described as mild. Onset: kdr The symptoms/episode began/occurred gradually, 3 day(s) ago. Severity of symptoms: At their worst the symptoms were mild, in the emergency department the symptoms are unchanged. Modifying factors: The symptoms are alleviated by nothing, the symptoms are aggravated by nothing. Associated signs and symptoms: The patient has no apparent associated signs or symptoms. The patient has not experienced similar symptoms in the past. The patient has not recently seen a physician. Historical: - Allergies: 09:14 Bentyl; sv 09:14 Dicyclomine; sv 09:14 Ketorolac; sv 09:14 metoclopramide HCl; sv 09:14 Morphine; sv 09:14 Ondansetron HCl; sv 09:14 Sulfa (Sulfonamide Antibiotics); sv 09:14 Tramadol HCl; sv - PMHx: 09:14 brain lesions; CHF; Migraines; PCOS; sv - PSHx: 09:14 ; sv - Immunization history:: Adult Immunizations up to date, Flu vaccine is up to date. - Social history:: Smoking status: Patient/guardian denies using tobacco, Patient uses alcohol, occasionally. - Ebola Screening: : No symptoms or risks identified at this time. ROS: 19:41 Constitutional: Negative for fever, chills, and weight loss, Eyes: Negative for injury, kdr pain, redness, and discharge, Neck: Negative for injury, pain, and swelling, Cardiovascular: Negative for chest pain, palpitations, and edema, Abdomen/GI: Negative for abdominal pain, nausea, vomiting, diarrhea, and constipation, Back: Negative for injury and pain, : Negative for injury, bleeding, discharge, and swelling, MS/Extremity: Negative for injury and deformity, Skin: Negative for injury, rash, and discoloration, Neuro: Negative for headache, weakness, numbness, tingling, and seizure activity. Psych: Negative for depression, anxiety, suicide ideation, homicidal ideation, and hallucinations, Allergy/Immunology: Negative for hives, rash, and allergies, Endocrine: Negative for neck swelling, polydipsia, polyuria, polyphagia, and marked weight changes, Hematologic/Lymphatic: Negative for swollen nodes, abnormal bleeding, and unusual bruising. 19:41 Respiratory: Positive for cough, with no reported sputum, shortness of breath, Negative for dyspnea on exertion, hemoptysis, orthopnea, pleurisy, sputum production. Exam: 19:41 Constitutional: This is a well developed, well nourished patient who is awake, alert, kdr and in no acute distress. Head/Face: Normocephalic, atraumatic. Eyes: Pupils equal round and reactive to light, extra-ocular motions intact. Lids and lashes normal. Conjunctiva and sclera are non-icteric and not injected. Cornea within normal limits. Periorbital areas with no swelling, redness, or edema. ENT: Nares patent. No nasal discharge, no septal abnormalities noted. Tympanic membranes are normal and external auditory canals are clear. Oropharynx with no redness, swelling, or masses, exudates, or evidence of obstruction, uvula midline. Mucous membranes moist. Neck: Trachea midline, no thyromegaly or masses palpated, and no cervical lymphadenopathy. Supple, full range of motion without nuchal rigidity, or vertebral point tenderness. No Meningismus. Chest/axilla: Normal chest wall appearance and motion. Nontender with no deformity. No lesions are appreciated. Cardiovascular: Regular rate and rhythm with a normal S1 and S2. No gallops, murmurs, or rubs. Normal PMI, no JVD. No pulse deficits. Respiratory: Lungs have equal breath sounds bilaterally, clear to auscultation and percussion. No rales, rhonchi or wheezes noted. No increased work of breathing, no retractions or nasal flaring. Abdomen/GI: Soft, non-tender, with normal bowel sounds. No distension or tympany. No guarding or rebound. No evidence of tenderness throughout. Back: No spinal tenderness. No costovertebral tenderness. Full range of motion. Skin: Warm, dry with normal turgor. Normal color with no rashes, no lesions, and no evidence of cellulitis. MS/ Extremity: Pulses equal, no cyanosis. Neurovascular intact. Full, normal range of motion. Neuro: Awake and alert, GCS 15, oriented to person, place, time, and situation. Cranial nerves II-XII grossly intact. Motor strength 5/5 in all extremities. Sensory grossly intact. Cerebellar exam normal. Normal gait. Psych: Awake, alert, with orientation to person, place and time. Behavior, mood, and affect are within normal limits. Vital Signs: 09:15 BP 142 / 82; Pulse 104; Resp 18; Temp 98.8; Pulse Ox 100% ; Weight 107.5 kg; sv 12:00 BP 132 / 80; Pulse 87; Resp 17; Temp 98.6; Pulse Ox 99% on R/A; sg MDM: 11:51 Patient medically screened. kdr 19:41 Data reviewed: vital signs, nurses notes, lab test result(s). Counseling: I had a kdr detailed discussion with the patient and/or guardian regarding: the historical points, exam findings, and any diagnostic results supporting the discharge/admit diagnosis, lab results, the need for outpatient follow up. 03 09:08 Order name: Flu; Complete Time: 09:54 sv 06/24 09:08 Order name: Strep; Complete Time: 09:54 sv 06/24 09:20 Order name: CXR XRAY; Complete Time: 11:50 kdr 06/24 09:36 Order name: Throat Culture EDMS 06/24 11:01 Order name: Urine Dipstick--Ancillary (enter results); Complete Time: 11:50 eb 06/24 11:02 Order name: Urine --Ancillary (enter results); Complete Time: 11:50 eb Administered Medications: No medications were administered Disposition: 06/24/18 11:51 Discharged to Home. Impression: Cough, Myalgia. - Condition is Stable. - Discharge Instructions: Cough, Adult, [id number]. - Prescriptions for Tessalon Perles 100 mg Oral Capsule - take 1 capsule by ORAL route every 8 hours As needed; 15 capsule. - Work release form, Medication Reconciliation Form, Thank You Letter, Antibiotic Education, Prescription Opioid Use form. - Follow up: Private Physician; When: 2 - 3 days; Reason: If symptoms return, Further diagnostic work-up, Recheck today's complaints, Continuance of care, Re-evaluation by your physician. - Problem is new. - Symptoms have improved. Signatures: Dispatcher [employer] EDZulay Vasques RN RN aj1 Orin Giang RN RN sv Cristi Cruz MD MD kdr Corrections: (The following items were deleted from the chart) 12:11 11:51 06/24/2018 11:51 Discharged to Home. Impression: Cough; Myalgia. Condition is aj1 Stable. Forms are Medication Reconciliation Form, Thank You Letter, Antibiotic Education, Prescription Opioid Use. Follow up: Private Physician; When: 2 - 3 days; Reason: If symptoms return, Further diagnostic work-up, Recheck today's complaints, Continuance of care, Re-evaluation by your physician. Problem is new. Symptoms have improved. kdr
--- NOTE | 2018-06-24 11:52 | ER ---
Nurse's Notes [facility] Name: Edmond Dewitt Age: 23 yrs Sex: Female : 1995 Arrival Date: 06/24/2018 Time: 08:55 Bed 5 Private MD: Diagnosis: Cough;Myalgia Presentation: 06/24 09:08 Presenting complaint: Patient states: cough, sore throat, chills, body aches, fever sv Tmax 101.3 x 3 days. Transition of care: patient was not received from another setting of care. Onset of symptoms was June 21, 2018. Risk Assessment: Do you want to hurt yourself or someone else? Patient reports no desire to harm self or others. Initial Sepsis Screen: Does the patient meet any 2 criteria? No. Patient's initial sepsis screen is negative. Does the patient have a suspected source of infection? No. Patient's initial sepsis screen is negative. Care prior to arrival: None. 09:08 Method Of Arrival: Ambulatory sv 09:08 Acuity: SHADY 4 sv Triage Assessment: 09:08 General: Appears in no apparent distress. uncomfortable, obese, well developed, sv Behavior is calm, cooperative, appropriate for age. Neuro: Level of Consciousness is awake, alert, obeys commands, Oriented to person, place, time, situation, Gait is steady, Speech is normal. Respiratory: Respiratory effort is even, unlabored, Respiratory pattern is regular, symmetrical. Derm: Skin is normal. Historical: - Allergies: 09:14 Bentyl; sv 09:14 Dicyclomine; sv 09:14 Ketorolac; sv 09:14 metoclopramide HCl; sv 09:14 Morphine; sv 09:14 Ondansetron HCl; sv 09:14 Sulfa (Sulfonamide Antibiotics); sv 09:14 Tramadol HCl; sv - PMHx: 09:14 brain lesions; CHF; Migraines; PCOS; sv - PSHx: 09:14 ; sv - Immunization history:: Adult Immunizations up to date, Flu vaccine is up to date. - Social history:: Smoking status: Patient/guardian denies using tobacco, Patient uses alcohol, occasionally. - Ebola Screening: : No symptoms or risks identified at this time. Screenin:00 Abuse screen: Denies threats or abuse. Denies injuries from another. Nutritional aj1 screening: No deficits noted. Tuberculosis screening: No symptoms or risk factors identified. 12:10 Fall Risk None identified. sg Assessment: 10:00 General: Appears in no apparent distress. comfortable, Behavior is calm, cooperative, aj1 appropriate for age. Pain: Complains of pain in generalized body aches. Neuro: Level of Consciousness is awake, alert, obeys commands. Cardiovascular: Patient's skin is warm and dry. Respiratory: Reports cough that is persistent Airway is patent Respiratory effort is even, unlabored, Respiratory pattern is regular, symmetrical. GI: No signs and/or symptoms were reported involving the gastrointestinal system. : No signs and/or symptoms were reported regarding the genitourinary system. EENT: Reports sore throat. Derm: No signs and/or symptoms reported regarding the dermatologic system. Skin is pink, warm \T\ dry. normal. Musculoskeletal: No signs and/or symptoms reported regarding the musculoskeletal system. Circulation, motion, and sensation intact. Vital Signs: 09:15 BP 142 / 82; Pulse 104; Resp 18; Temp 98.8; Pulse Ox 100% ; Weight 107.5 kg; sv 12:00 BP 132 / 80; Pulse 87; Resp 17; Temp 98.6; Pulse Ox 99% on R/A; sg ED Course: 08:55 Patient arrived in ED. as 09:07 Orin Giang, KRIS is Primary Nurse. sv 09:08 Arm band placed on Patient placed in an exam room, on a stretcher. sv 09:09 Triage completed. sv 09:10 Cristi Cruz MD is Attending Physician. kdr 10:00 Patient has correct armband on for positive identification. Bed in low position. Call aj1 light in reach. Side rails up X 1. 10:00 Report given to Zualy PONCE. sv 10:00 No provider procedures requiring assistance completed. aj1 10:54 X-ray completed. Portable x-ray completed in exam room. Patient tolerated procedure jb2 well. 10:57 CXR XRAY In Process Unspecified. EDMS 12:10 Patient did not have IV access during this emergency room visit. sg Administered Medications: No medications were administered Outcome: 11:51 Discharge ordered by . kdr 12:10 Discharged to home ambulatory, with friend. sg 12:10 Condition: good 12:10 Discharge instructions given to patient, Instructed on discharge instructions, follow up and referral plans. medication usage, safety practices, Demonstrated understanding of instructions, follow-up care, medications, Prescriptions given X 1. 12:11 Patient left the ED. aj1 Signatures: Dispatcher [employer] EDZulay Vasques RN RN aj1 Orin Giang RN RN sv Gay, Steven, RN RN sg Rittger, Kevin, MD MD kdr Buechter, Jesse jb2 Martinez, Amelia as
== END 2018-06-24 12:11 | disposition home or self-care (01) ==
LOC: ER 08:52
DX: M79.10 Myalgia, unspecified site (principal); Z88.2 Allergy status to sulfonamides; Z88.5 Allergy status to narcotic agent; Z88.6 Allergy status to analgesic agent; Z88.8 Allergy status to other drugs, medicaments and biological substances
CPT/HCPCS: 71045; 81003; 81025; 87070; 87081; 87804; 99283

== ENCOUNTER 2020-01-12 22:25 | Emergency (ER) | payer OTHER ==
--- OUTSIDE RECORDS SUMMARY | 2020-01-12 22:28 | XMS REPORT | Summary of Care ---
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 Visit [facility] Elissa Guajardo PA-C [address] [place] [address] [address] [place] [address] Well woman exam with routine gynecologic al exam; Professional Office 2, [facility] Lab Screening for STDs (sexually transmitted diseases) Building Phlebotomy Lab Professional Office Building [address] [place] [address] [address] [place] [address] Allergies Active Allergy Reactions Severity Noted Date Comments Dicyclomine Hcl Hives, Rash 07/12/2015 Morphine Hives, Swelling High 05/29/2015 Metoclopramide Hcl Hives, Swelling High 05/29/2015 Sulfa (Sulfonamide Antibiotics) Hives 7 Sulfamethoxazole Hives, Swelling 08/12/2015 Sulfur Hives, Swelling High 05/29/2015 Ketorolac Tromethamine Hives, Swelling High 05/29/2015 Tramadol Anxiety, Hives, Swelling High 05/29/2015 Ondansetron Hcl (Pf) Hives, Swelling High 05/29/2015 documented as of this encounter (statuses as of 10/20/2019) Medications Medication Sig Dispensed Refills Start Date End Date Status aspirin 81 mg EC tablet Take 81 mg by 0 Active mouth daily. famotidine (PEPCID) 20 mg Take 1 tablet 30 tablet 0 12/07/2016 Active tablet by mouth 2 (two) times daily. gabapentin (NEURONTIN) Take 1 capsule 90 capsule 0 01/12/2018 Active 100 mg capsule by mouth 3 (three) times daily. NAPROXEN ORAL Take by 0 Active mouth. proMETHazine 25 mg Take 1 tablet 12 tablet 0 05/28/2018 Active tabletIndications: Right by mouth every lower quadrant abdominal 6 (six) hours pain, Vaginal bleeding as needed for Nausea and Vomiting (N/V). metFORMIN 500 mg tablet Take 1 tablet 2 08/15/2018 Active by mouth 2 (two) times daily. PNV no.95/ferrous Take by 0 Ac tive fum/folic ac ( mouth. ORAL) clomiPHENE 50 mg Take 3 tablets 15 tablet 1 09/14/2019 Active tabletIndications: by mouth every Infertility associated day on cycle with anovulation day 3 through 7. medroxyPROGESTERone Take one 10 tablet 2 09/14/2019 Active (PROVERA) 10 mg tablet by tabletIndications: mouth every Anovulation day for 10 days of the month as directed. documented as of this encounter (statuses as of 10/20/2019) Active Problems Problem Noted Date Boil, breast 09/01/2016 PCOS (polycystic ovarian syndrome) 09/01/2016 Irregular menstrual cycle 09/01/2016 Unprotected sexual intercourse 09/01/2016 Migraine with aura and without status migrainosus, not intractable 09/01/2016 Morbid obesity 10/04/2015 Brain lesion 06/17/2015 Overview: DX in 2010 @ [facility] Neuropathy 06/17/2015 Overview: Hands & feet CHF (congestive heart failure) 06/17/2015 documented as of this encounter (statuses as of 10/20/2019) Resolved Problems Problem Noted Date Resolved Date care and examination of lactating mother 08/22/19 16 10/04/2015 Anemia of mother in , condition 08/22/19 16 10/04/2015 contractions 07/29/2015 08/22/2015 Pelvic pain affecting , antepartum 07/29/2015 08/22/2015 39 weeks gestation of 07/29/2015 08/22/19 16 Oligohydramnios antepartum, third trimester, fetus 1 016 08/22/2015 Vasculitis 06/17/2015 08/22/2015 documented as of this encounter (statuses as of 10/20/2019) Immunizations Name Administration Dates Next Due Chickenpox Disease 1995 DTAP 04/25/1997 DTP 02/17/1994, 1995, 1995 HEP B, Adult Dosage 1995, [birth year] HEPATITIS A 04/10/2010, 10/10/2008, 05/23/2007 HPV 04/10/2010, 10/10/2008, 11/29/2007, 05/23/2007 Heamophilus Influenza B 03/31/1994, 02/17/1994, 1995, 1995 Hep B, Adol or Pedi Dosage 1995, 1995, 3 IPV 04/25/1997 Influenza Virus Vaccine 04/10/2010 Influenza Virus Vaccine (3+ yrs) 04/10/2010 Influenza Virus Vaccine Quad IM 3+ YRS 08/01/2015 MMR 04/25/1997, 03/31/1994 Meningococcal Polysaccharide (groups 05/23/2007 A, C, Y and W-135) conjugate vaccine (MCV4P) OPV 02/17/1994, 1995, 1995 Polio (IPV/OPV) 02/17/1994, 1995, 1995 TDAP 08/01/2015, 05/23/2007 Td 07/11/2017 documented as of this encounter Social History Tobacco Use Types Packs/Day Years Used Date Never Smoker Smokeless Tobacco: Never Used Alcohol Use Drinks/Week oz/Week Comments Not Currently 0 Standard drinks or equivalent 0.0 ocassionlly Sex Assigned at Date Recorded Not on file Job Start Date Occupation Industry Not on file Not on file Not on file Travel History Travel Start Travel End No recent travel history available. COVID-19 Exposure Response Date Recorded In the last month, have you been in contact with No / Unsure 10/20/2019 1:15 PM CDT someone who was confirmed or suspected to have Coronavirus / COVID-19? documented as of this encounter Last Filed Vital Signs Not on filedocumented in this encounter Plan of Treatment Date Type Specialty Care Team Description 10/15/2020 Office Visit Obstetrics & Gynecology Elissa Guajardo PA-C [address] [place] [address] [phone] Health Maintenance Due Date Last Done Comments PNEUMOCOCCAL 0-64 YEARS COMBINED 1999 SERIES (1 of 1 - PPSV23) Depression Screening 2005 INFLUENZA VACCINE (#1) 2019 08/01/2015, 04/10/2010, 04/10/2010 PAP SMEAR 10/03/2021 10/03/2018, 10/04/2015, 10/10/2008, Additional history exists DTaP,Tdap,and Td Vaccines (8 - Td) 07/12/2027 07/11/2017, 0 08/01/2015, 05/23/2007, Additional history exists HPV VACCINES Completed 04/10/2010, 10/10/2008, 11/29/2007, Additional history exists documented as of this encounter Results Not on filedocumented in this encounter Visit Diagnoses Diagnosis Well woman exam with routine gynecologic al exam Routine gynecological examination Screening for STDs (sexually transmitted diseases) Screening examination for venereal disea se documented in this encounter Insurance Payer Benefit Plan Subscriber ID Effective Dates Phone Address Type / Group CIGNA CIGNA II [id number] 2019-Presen O/PPO/POS t [facility] xxxxxxxxx 2018-Prese Medicaid COMM PLAN - STAR PLUS nt MANAGED MEDICAID [id number] documented as of this encounter
--- OUTSIDE RECORDS SUMMARY | 2020-01-12 22:28 | XMS REPORT | Summary of Care ---
:1995 Author Organization [facility] Address [address] [place] [address] Care Team Providers Name Role Phone Marcella Talavera Primary Care Provider Reason for Visit Reason Comments Well Woman Exam Encounter Details Date Type Department Care Team Description 10/16/[address] Office [address] [facility] Women's Elissa Guajardo, Well woman exam with routine gynecological exam (Primary Dx); [facility]- [place] PA-C Encounter for screening breast examinati on; 146 [facility] 146 [facility] ng for STDs (sexually transmitted diseases) Drive, [address] [place] [address] [place], [place] [phone] Allergies Active Allergy Reactions Severity Noted [...] as of this encounter (statuses as of 10/16/2019) Medications Medication Sig Dispensed Refills Start Date [...] as of this encounter (statuses as of 10/16/2019) Active Problems Problem Noted Date Boil, breast 09/01/2016 PCOS (polycystic ovarian syndrome) 09/01/2016 Irregular menstrual cycle 09/01/2016 Unprotected sexual intercourse 09/01/2016 Migraine with aura and without status migrainosus, not intractable 09/01/2016 Morbid obesity 10/04/2015 Brain lesion 06/17/2015 Overview: DX in 2010 @ [facility] Neuropathy 06/17/2015 Overview: Hands & feet CHF (congestive heart failure) 06/17/2015 documented as of this encounter (statuses as of 10/16/2019) Resolved Problems Problem Noted Date Resolved Date care and examination of lactating mother 08/22/19 16 10/04/2015 Anemia of mother in , condition 08/22/19 16 10/04/2015 contractions 07/29/2015 08/22/2015 Pelvic pain affecting , antepartum 07/29/2015 08/22/2015 39 weeks gestation of 07/29/2015 08/22/19 16 Oligohydramnios antepartum, third trimester, fetus 1 016 08/22/2015 Vasculitis 06/17/2015 08/22/2015 documented as of this encounter (statuses as of 10/16/2019) Immunizations Name Administration Dates Next Due Chickenpox [...] been in contact with No / Unsure 10/16/2019 1:06 PM CDT someone who was confirmed or suspected to have Coronavirus / COVID-19? documented as of this encounter Last Filed Vital Signs Vital Sign Reading Time Taken Comments Blood Pressure 108/64 10/16/2019 1:20 PM CDT Pulse 81 10/16/2019 1:20 PM CDT Temperature 36.8 C (98.3 F) 10/16/2019 1:20 PM CDT Respiratory Rate 18 10/16/2019 1:20 PM CDT Oxygen Saturation - - Inhaled Oxygen Concentration - - Weight 120.7 kg (266 lb) 10/16/2019 1:20 PM CDT Height 157.5 cm (5' 2") 10/16/2019 1:20 PM CDT Body Mass Index 48.65 10/16/2019 1:20 PM CDT documented in this encounter Progress Notes Elissa Guajardo PA-C - 10/16/2019 1:30 PM CDT Chief complaint: Chief Complaint Patient presents with Well Woman Exam HPI Edmond Kristina Dewitt is a 24 year old female presenting for well woman exam. She is particularly concerned about wwe The patient has a Body mass index is 48.65 kg/m.. She is working on eating healthier and exercising more. The patient is not concerned about her menstrual cycles. Her cycles are irregular and last about 5-7 days. Her bleeding is moderate. The patient is sexually active. She currently has 1 sexual partner(s). She is offered sexually transmitted disease testing and accepts. She has had 1 sexual partners in the past year. She engages in vaginal and oral sex. She prefers men. She is currently using nothing for contraception. Patient reports is trying to get The patient denies any urinary incontinence. She denies any fecal incontinence. Her last pap smear was in 2018 and was normal. Her next pap smear is due 2021. She engages in breast self awareness. She denies any breast changes. She denies any family history of breast, ovarian, uterine or colon cancer. The patient feels safe at home. She denies any history of drug use. She does not smoke or drink. Her mood is good. Histories OB History Para Term AB Living 1 1 1 1 SAB TAB Ectopic Multiple Live Births 0 1 # Outcome Date GA Lbr Lewis/2nd Weight Sex Delivery Anes PTL Lv 1 Term 07/30/15 39w1d 5 lb 12.6 oz (2.625 kg) M SEC None ZULEIKA Comments: Maternal Age: 22; :1; Parity:1 Mother's Blood Type: O+ Baby's Blood Type: A+, APRIL neg Maternal Serological Test: normal Maternal Group B Strep Screening: Unknown Adequate Treatment: AROM at CS, no treatment needed Complications: none Labor Complications:no OAE: passed Hepatitis B Vaccine:yes Problems:no 1st screen collected on 07/31/2015 showed abnormal. Elevated Immunoreactive Trypsinogen Indeterminate. Please repeat the screen within 7 days. Letter to parent. mg Past Medical History: Diagnosis Date Anemia Boil, breast 09/01/2016 Clotting disorder Coronary artery disease CHF Heart murmur congenital Irregular menstrual cycle 09/01/2016 Menstrual disorder irregular menses Multiple lesions on CT of brain and spine Ovarian cyst left PCOS (polycystic ovarian syndrome) 09/01/2016 Superficial thrombophlebitis vasculitis Family History Problem Relation Age of Onset Other - see comments Mother Crohn's Arthritis Father Asthma Father Diabetes Father Heart Father Hypertension Father Hypertension Brother Hypertension Maternal Grandmother Hypertension Paternal Grandmother Arthritis Paternal Grandmother defects NoFHx Breast Cancer NoFHx Colon Cancer NoFHx Ovarian Cancer NoFHx Uterine Cancer NoFHx Cancer NoFHx Depression NoFHx Genetic NoFHx High cholesterol NoFHx Mental retardation NoFHx Neurological NoFHx Osteoporosis NoFHx Psychiatry NoFHx Family Status Relation Name Status Mo Alive Fa Alive Bro Alive MGMo Alive PGMo Alive NoFHx (Not Specified) Past Surgical History: Procedure Laterality Date SECTION N/A 07/30/2015 Surgeon: Stan Botello; Location: Labor and Delivery - [facility] [place] Social History Socioeconomic History Marital status: Single Spouse name: Not on file Number of children: Not on file Years of education: Not on file Highest education level: Not on file Occupational History Not on file Social Needs Financial resource strain: Not on file Food insecurity: Worry: Not on file Inability: Not on file Transportation needs: Medical: Not on file Non-medical: Not on file Tobacco Use Smoking status: Never Smoker Smokeless tobacco: Never Used Substance and Sexual Activity Alcohol use: Not Currently Alcohol/week: 0.0 standard drinks Comment: ocassionlly Drug use: No Sexual activity: Yes Partners: Male control/protection: None Comment: last intercourse 09/27/18 Lifestyle Physical activity: Days per week: Not on file Minutes per session: Not on file Stress: Not on file Relationships Social connections: Talks on phone: Not on file Gets together: Not on file Attends sabianist service: Not on file Active member of club or organization: Not on file Attends meetings of clubs or organizations: Not on file Relationship status: Not on file Intimate partner violence: Fear of current or ex partner: Not on file Emotionally abused: Not on file Physically abused: Not on file Forced sexual activity: Not on file Other Topics Concern Not on file Social History Narrative Denies abuse Social History Substance and Sexual Activity Sexual Activity Yes Partners: Male control/protection: None Comment: last intercourse 09/27/18 Labs none Radiology none Allergies Retanique is allergic to morphine; reglan [metoclopramide hcl]; sulfur; toradol [ketorolac tromethamine]; tramadol; zofran [ondansetron hcl (pf)]; bentyl [dicyclomine hcl]; sulfa (sulfonamide antibiotics); and sulfamethoxazole. Medications Edmond has a current medication list which includes the following prescription(s): clomiphene, medroxyprogesterone, pnv no.95/ferrous fum/folic ac, metformin, promethazine, naproxen, gabapentin, famotidine, and aspirin. Review of Systems Constitutional: Negative for appetite change, fatigue, fever, unexpected weight change, weight gain and weight loss. HENT: Negative for rhinorrhea and sore throat. Eyes: Negative for pain and itching. Respiratory: Negative for cough, chest tightness and shortness of breath. Breasts: Negative for discharge, mass and pain. Cardiovascular: Negative for chest pain, palpitations and leg swelling. Gastrointestinal: Negative for abdominal pain, constipation, diarrhea and nausea. Genitourinary: Negative for bladder incontinence, dysuria, vaginal discharge, difficulty urinating, vaginal pain and pelvic pain. Musculoskeletal: Negative for gait problem and myalgias. Skin: Negative for rash. Neurological: Negative for dizziness and headaches. Psychiatric/Behavioral: Negative for suicidal ideas. The patient is not nervous/anxious. Endocrine: Negative for hair loss, weight gain and weight loss. BP 108/64 (BP Location: Left arm, Patient Position: Sitting, BP CUFF SIZE: Adult Medium) | Pulse 81 | Temp 36.8 C (98.3 F) (Oral) | Resp 18 | Ht 5' 2" (1.575 m) | Wt 266 lb (120.7 kg) | BMI 48.65 kg/m Pregravid BMI: Could not be calculated Physical Exam Vitals reviewed. Constitutional: She is oriented to person, place, and time. Her body habitus is obese. Neck: No mass. No thyromegaly palpated. No neck adenopathy. Cardiovascular: Regular rate and rhythm. Pulmonary/Chest: Normal inspiratory effort. Abdominal: Abdomen is soft. No tenderness present. No hernia palpated or inspected. Neuro/Psychiatric: She has a normal mood and affect. She is oriented to person, place, and time. Skin: Skin normal. Lymphadenopathy: No neck adenopathy present. No axillary adenopathy present. No inguinal adenopathy present. Breast: Right breast exhibits no mass, no nipple discharge and no tenderness. Left breast exhibits no mass, no nipple discharge and no tenderness. Breasts are symmetrical. Normal left breast and normalright breast External genitalia: Normal external genitalia appropriate for age. Urethral meatus: Normal urethral meatus Urethra: Normal urethra. Bladder: No tenderness. Normal bladder Vagina:Normal vagina. No lesion inspected. No abnormal vaginal discharge found. Cervix: Normal cervix. No lesion. No tenderness and no discharge present. Uterus: Uterus is non-tender. Normal uterus Adnexa: Right adnexa without tenderness. Left adnexa without tenderness. Normal left adnexa and normal right adnexa Anus/perineum: Normal perineum and normal anus. Assessment/Plan Well woman exam with routine gynecological exam (primary encounter diagnosis) Plan: GC & CHLAMYDIA AMPLIFIED ASSAY, TRICHOMONAS AMPLIFIED ASSAY, HCV ANTIBODY, HEPATITIS B SURFACE ANTIGEN, HIV 1/2 AG-AB WITH REFLEX, ADC OR REGINALDO ONLY - RPR FOLLOW-UP in 1 yr WWE Encounter for screening breast examination No complaints, self awareness Screening for STDs (sexually transmitted diseases) Plan: GC & CHLAMYDIA AMPLIFIED ASSAY, TRICHOMONAS AMPLIFIED ASSAY, HCV ANTIBODY, HEPATITIS B SURFACE ANTIGEN, HIV 1/2 AG-AB WITH REFLEX, ADC OR REGINALDO ONLY - RPR I counseled the patient about prevention of sexually transmitted diseases. The best form of prevention is abstinence but condom use is highly recommended to help prevent transmission in those who are sexually active. Condom use is not 100% effective in preventing transmission of sexually transmitteddisease. Discussed that while many STDs are treatable, they can have lasting impact on fertility and pelvic pain. Some STDs are not curable (HIV and HSV). The best method is prevention so encourageddiscussion with partners about sexual health and regular condom use. Return to clinic in 1yr WWE Discussed treatment options. Reviewed patient instructions and provided printed copy. This visit did not involve counseling and coordination that comprised more than 50% of the visit time. Elissa Guajardo PA-C 10/16/2019 1:43 PM documented in this encounter Plan of Treatment Date Type Specialty Care Team Description 10/17/2019 Agile Business Analyst Visit Phlebotomy 2, Adc Lab 10/15/2020 Office Visit Obstetrics & Gynecology Elissa Guajardo PA-C [address] [place] [phone] Name Type Priority Associated Diagnoses Order S chedule GC & CHLAMYDIA AMPLIFIED LAB Routine Well woman exam with Ordered: 10/16/2019 ASSAY routine gynecolo gical exam Screening for STDs (sexually transmitted diseases) TRICHOMONAS AMPLIFIED LAB Routine Well woman exam wit h Ordered: 10/16/2019 ASSAY routine gynecolo gical exam Screening for STDs (sexually transmitted diseases) HCV ANTIBODY LAB Routine Well woman exam with Expecte d: 10/16/2019, routine gynecolo gical exam Expires: 01/16/2020 Screening for STDs (sexually transmitted diseases) HEPATITIS B SURFACE LAB Routine Well woman exam with Expected: 10/16/2019, ANTIGEN routine gynecolo gical exam Expires: 01/16/2020 Screening for STDs (sexually transmitted diseases) HIV 1/2 AG-AB WITH LAB Routine Well woman exam with E xpected: 10/16/2019, REFLEX routine gynecolo gical exam Expires: 10/15/2020 Screening for STDs (sexually transmitted diseases) ADC OR REGINALDO ONLY - LAB Routine Well woman exam wit h Expected: 10/16/2019, RPR routine gynecolo gical exam Expires: 01/16/2020 Screening for STDs (sexually transmitted diseases) Health Maintenance Due Date Last Done Comments PNEUMOCOCCAL 0-64 YEARS COMBINED 1999 SERIES (1 of 1 - PPSV23) Depression Screening 2005 INFLUENZA VACCINE (Season Ended) 2019 08/01/2015, , 04/10/2010 PAP SMEAR 10/03/2021 10/03/2018, 10/04/2015, 10/10/2008, Additional history exists DTaP,Tdap,and Td Vaccines (8 - Td) 07/12/2027 07/11/2017, 0 08/01/2015, 05/23/2007, Additional history exists HPV VACCINES Completed 04/10/2010, 10/10/2008, 11/29/2007, Additional history exists documented as of this encounter Results Not on filedocumented in this encounter Visit Diagnoses Diagnosis Well woman exam with routine gynecologic al exam - Primary Routine gynecological examination Encounter for screening breast examinati on Screening for STDs (sexually transmitted diseases) Screening examination for venereal disea se documented in this encounter Insurance Payer Benefit Plan Subscriber ID Effective Dates Phone Address Type / Group [id number] 2019-Presen O/PPO/POS t [facility] xxxxxxxxx 2018-Prese Medicaid COMM PLAN - STAR PLUS nt MANAGED MED[place] , [id number] documented as of this encounter
--- OUTSIDE RECORDS SUMMARY | 2020-01-12 22:28 | XMS REPORT | Summary of Care ---
:1995 Author Organization [facility] Address [address] [place] [address] Care Team Providers Name Role Phone Marcella Talavera Primary Care Provider Reason for Visit Reason Comments Well Woman Exam Encounter Details Date Type Department Care Team Description 10/16/2019 Office Visit [facility] Women's Elissa Guajardo, Well woman exam with routine gynecological exam (Primary Dx); [facility]- [place] PA-C Encounter for screening breast examinati on; 146 [facility] 146 [facility] ng for STDs (sexually transmitted diseases) Drive, [address] [place] [address] [place], [place] [phone] Allergies Active Allergy Reactions Severity Noted [...] lesion 06/17/2015 Overview: DX in 2010 @ [facility] Neuropathy 06/17/2015 Overview: Hands & feet [...] Stan Botello; Location: [facility] Delivery - [facility] Social History Socioeconomic History Marital status: Single [...] file Gets together: Not on file Attends voodoo service: Not on file Active member of [...] Date Type Specialty Care Team Description 10/17/2019 Multimedia Services Manager Visit Phlebotomy 2, Adc Lab 10/15/2020 Office Visit Obstetrics & Gynecology Elissa Guajardo PA-C [address] [place] [phone] Name Type Priority Associated Diagnoses Order [...] Dates Phone Address Type / Group [facility] [id number] 2019-Presen O/PPO/POS t [facility] xxxxxxxxx 2018-Prese Medicaid COMM PLAN - STAR PLUS nt MANAGED MEDICAID , [id number] 1 documented as of this encounter
--- OUTSIDE RECORDS SUMMARY | 2020-01-12 22:28 | XMS REPORT | Continuity of Care Document ---
:[address] [facility] t Address [address] [place] [address] Care Team Providers Name Role Phone Lab, Fam Pob I Attending Clinician Unavailable 2, Lab Attending Clinician Unavailable Casandra LOVE Attending Clinician Problems This patient has no known problems. Allergies, Adverse Reactions, Alerts This patient has no known allergies or adverse reactions. Medications This patient has no known medications. Procedures This patient has no known procedures. Encounters Start End Encounter Admission Attending Care Care Encounter Source Date/Time Date/Time Type Type Clinicians Facility Department ID 2019-10-20 2019-10-20 Laboratory [facility] [id number] 15:52:57 16:12:57 Only Fam Pob I [facility] [id number] [place] [id number] Professio [phone] [facility] 044 Office Building One 2019-10-20 2019-10-20 Back Hoe Operator 2, [facility] Lab [facility] [id number] 13:16:08 13:31:08 Visit Janna [id number] [place] [id number] Professio [phone] [place] [address] Building 2019-10-16 2019-10-[address] [facility] [id number] 13:07:05 13:37:05 Visit Elissa Saldivar [id number] [place] [id number] Professio [phone] [facility] 134 Building Results This patient has no known results.
--- OUTSIDE RECORDS SUMMARY | 2020-01-12 22:29 | XMS REPORT | Summary of Care ---
:[address] [facility] Address [address] [place] [address] Care Team Providers Name Role Phone Marcella Talavera Primary Care Provider Reason for Visit Reason Comments Exposure LAB Encounter Details Date Type Department Care Team Description 10/20/2019 Laboratory Only [facility] Family Minna Guajardo PA-C 146 [facility] [address] [place] [address] Exposure to Covid-19 Medicine - [facility], Adc Fam Pob I Virus (Primary Dx) [address] [place] [address] Allergies Active Allergy Reactions Severity Noted Date [...] lesion 06/17/2015 Overview: DX in 2010 @ [facility] Neuropathy 06/17/2015 Overview: Hands & feet [...] Visit Obstetrics & Gynecology Elissa Guajardo PA-C [address] [place] [phone] Name Type Priority Associated Diagnoses Order S marzena COVID-19 (PCR MOLECULAR LAB Routine Exposure to Covid -19 Expected: 10/20/2019, TESTING) Virus Expires: 2020 Health Maintenance Due Date Last Done Comments [...] filedocumented in this encounter Visit Diagnoses Diagnosis Exposure to Covid-19 Virus - Primary documented in this encounter Additional Health Concerns Infection Onset Date Last Indicated Resolved Time COVID-19 Rule Out 10/20/2019 10/20/2019 documented as of this encounter Insurance Payer Benefit Plan Subscriber ID Effective Dates Phone Address Type / Group CIGNA CIGNA II [id number] 2019-Presen O/PPO/POS t [facility] xxxxxxxxx 2018-Prese Medicaid COMM PLAN - STAR PLUS nt MANAGED MEDICAID [id number] 1 documented as of this encounter
--- NOTE | 2020-01-13 00:58 | ER ---
Nurse's Notes [facility] Name: Edmond Dewitt Age: 24 yrs Sex: Female : 1995 Arrival Date: 01/12/2020 Time: 22:27 Bed Waiting Private MD: Diagnosis: Presentation: 01/11 22:45 Chief complaint: Patient states: she has either an abscess or spider bite on her right bb breast which she noticed tonight and is draining serosanguinous fluid. Coronavirus screen: At this time, the client does not indicate any symptoms associated with coronavirus-19. Ebola Screen: No symptoms or risks identified at this time. Initial Sepsis Screen: Does the patient meet any 2 criteria? No. Patient's initial sepsis screen is negative. Does the patient have a suspected source of infection? No. Patient's initial sepsis screen is negative. Risk Assessment: Do you want to hurt yourself or someone else? Patient reports no desire to harm self or others. Onset of symptoms was January 12, 2020. 22:45 Method Of Arrival: Ambulatory bb 22:45 Acuity: SHADY 4 bb TAX PROCESSOR: 22:48 LMP 01/06/2020 bb Historical: - Allergies: 22:48 Bentyl; bb 22:48 Dicyclomine; bb 22:48 Ketorolac; bb 22:48 metoclopramide HCl; bb 22:48 Morphine; bb 22:48 Ondansetron HCl; bb 22:48 Sulfa (Sulfonamide Antibiotics); bb 22:48 Tramadol HCl; bb - Home Meds: 22:48 None [Active]; bb - PMHx: 22:48 brain lesions; CHF; Migraines; PCOS; bb - PSHx: 22:48 ; bb - Immunization history:: Adult Immunizations up to date. - Social history:: Smoking status: Patient denies any tobacco usage or history of. Patient uses alcohol, occasionally. Patient/guardian denies using street drugs. Vital Signs: 22:45 BP 127 / 68; Pulse 83; Resp 16 S; Temp 98.2(O); Pulse Ox 100% on R/A; Weight 117.93 kg bb (R); Height 5 ft. 2 in. (157.48 cm) (R); Pain 6/10; 22:45 Body Mass Index 47.55 (117.93 kg, 157.48 cm) bb ED Course: 22:27 Patient arrived in ED. cl3 22:47 Triage completed. bb 22:48 Arm band placed on Patient placed in waiting room, Patient notified of wait time. bb 01/12 00:49 Madi Davis MD is Attending Physician. 7 00:57 Patient's name was called from ER lobby. No response. Unable to locate patient. Will bb disposition as left without being seen by a provider. Administered Medications: No medications were administered Outcome: 00:58 Patient left the ED. bb Signatures: Georgina Larson RN RN Humberto Rogers cl3 Madi Davis MD MD [id number]
[2020-01-13 01:03] VITALS: BP 127/68; TEMP 98.2; O2SAT 100
== END 2020-01-13 00:58 | disposition left against medical advice (07) ==
LOC: ER 22:25
DX: Z53.21 Procedure and treatment not carried out due to patient leaving prior to being seen by health care provider (principal)
CPT/HCPCS: 99281

== ENCOUNTER 2020-11-18 11:26 | Day surgery (SDC) | payer OTHER ==
[2020-11-13 14:55] LABS: Absolute Lymphocytes (CBC) 2.9 K/uL (0.7-4.9); Basophils % 1.1 % (0-1.3); Hematocrit 38.8 % (36.0-45.0); MPV 8.7 fL (7.6-11.3)
[2020-11-13 14:59] LABS: Protime INR 1.16
[2020-11-13 15:05] LABS: BUN Blood Urea Nitrogen 11 mg/dL (7-18); Bicarbonate 30 mmol/L (21-32); Glucose Level 83 mg/dL (74-106); Potassium 3.9 mmol/L (3.5-5.1); Sodium Level 139 mmol/L (136-145)
--- NOTE | 2020-11-13 15:29 | RAD REPORT ---
EXAM DESCRIPTION: RAD - Chest Pa And Lat (2 Views) - 11/13/2020 2:28 pm CLINICAL HISTORY: preop COMPARISON: Chest Single View dated 05/22/2019; Chest Single View dated 06/24/2018; Chest Pa And Lat (2 Views) dated 04/02/2018; Chest Single View dated 05/14/2017 FINDINGS: No evidence of edema or pneumonia. The heart size is within normal limits.No acute osseous abnormality. No significant pleural effusions or pneumothorax. IMPRESSION: No acute cardiopulmonary disease.
[2020-11-18] MEDS ORDERED: HEPA 1000U/500MLS 2,000 UNIT/1,000 ML BAG IV ONE (12:10)
[2020-11-18] MEDS ORDERED: NA CHLORIDE 0.9% 500 ML ONE (12:18)
[2020-11-18 12:43] LABS: Specific Gravity 1.025 (1.005-1.030)
[2020-11-18] MEDS ORDERED: FENTANYL CITR 100 MCG/2 ML ONE (13:43)
[2020-11-18] MEDS ORDERED: VERAPAMIL HCL 10 MG/4 ML VIAL IV ONE (13:43)
[2020-11-18] MEDS ORDERED: MIDAZOLAM HCL 2 MG/2 ML INJ ONE (13:43)
[2020-11-18] MEDS ORDERED: HEPARIN 5000 UNIT/ML 1 ML VIAL ONE (13:44)
[2020-11-18] MEDS ORDERED: CLOPIDOGREL 75 MG TABLET ONE (13:44)
[2020-11-18] MEDS ORDERED: ASPIRIN 325 MG TAB ONE (13:44)
[2020-11-18] MEDS ORDERED: NITROGLYCERIN/D5W 25 MG/250 ML BTL IV ONE (13:45)
[2020-11-18] MEDS ORDERED: NITROGLYCERIN 100 MCG/ML SYR (for cath lab use only) IV ONE (13:45)
[2020-11-18] MEDS ORDERED: ATROPINE SULF 1 MG/10 ML SYR IV ONE (13:45)
[2020-11-18] MEDS ORDERED: TICAGRELOR 90 MG TABLET PO ONE (13:45)
[2020-11-18] MEDS ORDERED: HEPA 1000U/500MLS 1,000 UNIT/500 ML BAG IV ONE (14:25)
[2020-11-18 16:05] VITALS: TEMP 97
--- NOTE | 2020-11-18 16:18 | OP ---
Date of Procedure: 11/18/2020 Surgeon: VIMAL HUSSEIN Procedure Performed: Distal aortogram with bilateral lower extremity runoff and peripheral angiogram . Indication: Abnormal lower extremity Doppler suggestive of severe bilateral iliac artery stenosis. Complications: None. Bleeding: Less than 10 mL. Access: Right radial artery 6-Botswanan closed with TR band. Description Of Procedure: After risks, benefits, and alternatives were explained, the patient agreed to the procedure and signed informed consent. The patient was brought into the cardiac catheterizat ion laboratory, prepped and draped in usual sterile fashion. Then, we accessed right radial artery u sing pediatric micropuncture kit and placed a 6-Botswanan Slender sheath and then I took a long pigtail catheter into the distal aorta and performed distal aortogram with runoff. I then removed the cathet er and the sheath, placed TR band with good hemostasis. Findings: 1.Distal aorta is patent. 2.Bilateral iliac, common, external and internal iliac arteries are patent and normal bilaterally. 3.Common femoral arteries bilaterally are patent without disease. 4.Bilateral SFAs and profunda are patent without disease. 5.A good flow below the knee bilaterally without significant disease. Conclusion: Normal lower extremity vasculature. No peripheral arterial disease. Plan: Medical management. /MODL Voice ID: [id number] Report ID: [id number]
[2020-11-18 16:43] VITALS: O2SAT 100
[2020-11-18 17:08] VITALS: BP 130/65
== END 2020-11-18 17:13 | disposition home or self-care (01) ==
LOC: CCL 11:26
PROVIDERS: ATTEND Internal Medicine
DX: I73.9 Peripheral vascular disease, unspecified (principal); Z20.822 Contact with and (suspected) exposure to COVID-19; Z88.6 Allergy status to analgesic agent; Z88.2 Allergy status to sulfonamides; Z88.8 Allergy status to other drugs, medicaments and biological substances
CPT/HCPCS: 93005; 85025; 80048; 36415; 81025; 85610; 85730; 71046; 36200; U0003; C1893; J1644 ×3; J7040; 75630; J2250; J3010

== ENCOUNTER 2021-08-22 18:22 | Emergency (ER) | payer OTHER ==
--- OUTSIDE RECORDS SUMMARY | 2021-08-22 18:39 | XMS REPORT | Continuity of Care Document ---
:1995 Author Organization [facility] t Address [address] [place] [address] Care Team Providers Name Role Phone BLANKS, N Primary Care Physician Unavailable EMANUEL Attending Clinician Unavailable ARMANDO SCHULTE Attending Clinician Unavailable Armando Schulte MD Attending Clinician Nimesh RICKS Attending Clinician Doctor Unassigned, Name Attending Clinician Unavailable Only, Db Test Attending Clinician Unavailable Gomez MEDINAP Attending Clinician GOMEZ Attending Clinician Unavailable DRU MCDERMOTT Attending Clinician Unavailable MÓNICA SORIA Attending Clinician Unavailable Mónica Goins Attending Clinician ISABEL Attending Clinician Unavailable Singer MOON Attending Clinician Ebrahim OIL FIELD RIG BUILDER Attending Clinician EBRAHIM Attending Clinician Unavailable Lul MCGHEE Attending Clinician Unavailable Silvana Ken DO Attending Clinician Olivia GORDON S Attending Clinician EKHAESE Attending Clinician Unavailable EKHAESE, DO IMARIABE Attending Clinician Unavailable Abelardo PONCE, T Attending Clinician Unavailable IFEANYI Attending Clinician Unavailable Pob, Lab Main Attending Clinician Unavailable Emanuel LOVE Attending Clinician Yosi BENAVIDEZ Attending Clinician Jacob Frazier DO Attending Clinician YOSI Attending Clinician Unavailable Tk PAGAN Attending Clinician Unavailable Lab, Fam Pob I Attending Clinician Unavailable 2, Lab Attending Clinician Unavailable Atiya BENAVIDEZ Attending Clinician ATIYA Attending Clinician Unavailable Admitting Clinician Unavailable Lul MCGHEE Admitting Clinician Unavailable EKHAESE Admitting Clinician Unavailable EKHAESE, DO IMARIABE Admitting Clinician Unavailable EKHAESE, IMARIA Admitting Clinician Unavailable Payers Payer Name Policy Type Policy Number Effective Date Expiration Date Lul LINK II [id number] 2019 00:00:[address] 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 00:00: 00 Nausea and Nausea and Disease Active N PI:183 vomiting vomiting 08-08 798623 1 during during 00:00: 00 prior to prior to 22 weeks 22 weeks gestation gestation Boil, Boil, Disease Active NPI:183 breast breast 09-01 1180001 00:00: 00 PCOS PCOS Disease Active NPI:183 (polycysti (polycysti 09-01 13 66518 c ovarian c ovarian 00:00: syndrome) syndrome) 00 Irregular Irregular Disease Active NPI :183 menstrual menstrual 09-01 1318 781 cycle cycle 00:00: 00 Unprotecte Unprotecte Disease Active N PI:183 d sexual d sexual 09-01 166226 1 intercours intercours 00:00: e e 00 Migraine Migraine Disease Active NPI:1 83 with aura with aura 09-01 1318 781 and and 00:00: without without 00 status status migrainosu migrainosu s, not s, not intractabl intractabl e e Morbid Morbid Disease Active NPI:183 obesity obesity 6-17 6815084 00:00: 00 Brain Brain Disease Active Overview: NPI:18 3 lesion lesion Formattin [id number] 00:00: g of this 00 note might be different from the original. DX in 2010 @ [facility] Neuropathy Neuropathy Disease Active Overview : NPI:183 2-29 Formattin 9232101 00:00: g of this 00 note might be different from the original. Hands & feet CHF CHF Disease Active NPI:183 (congestiv (congestiv 13 25677 e heart e heart 00:00: failure) failure) 00 Allergies, Adverse Reactions, Alerts Allergy Allergy Status Severity Reaction(s) Onset Inactive Treating Comm ents Source Name Type Date Date Clinician Ibuprofe Propensi Active Swelling NPI: 183 n ty to 10-15 6805765 adverse 00:00: reaction 00 s IBUPROFE DRUG Active High Anaphylaxis NPI :183 N INGREDI 6- 0804724 00:00: 00 SULFA Drug Active Hives NPI:183 (SULFONA Class 8-21 [id number] MIDE 00:00: ANTIBIOT 00 ICS) Sulfa Propensi Active Hives NPI:183 (Sulfona ty to 8-21 1388801 mide adverse 00:00: Antibiot reaction 00 ics) s Sulfa Propensi Active Hives NPI:183 (Sulfona ty to 8 [id number] mide adverse 00:00: Antibiot reaction 00 ics) s SULFAMET DRUG Active Hives NPI:183 HOXAZOLE INGREDI 4- 2158777 00:00: 00 Sulfamet Propensi Active Swelling NPI: 183 hoxazole ty to 08-11 9675549 adverse 00:00: reaction 00 s DICYCLOM DRUG Active Hives NPI:183 INE HCL INGREDI 3-25 7406853 00:00: 00 Dicyclom Propensi Active Rash 2015- NPI:18 3 ine Hcl ty to 3 6190896 adverse 00:00: reaction 00 s MORPHINE DRUG Active High Hives NPI:183 INGREDI 2-10 1588923 00:00: 00 METOCLOP DRUG Active High Hives NPI:183 RAMIDE INGREDI 2-10 1659706 HCL 00:00: 00 SULFUR DRUG Active High Hives 0 NPI:183 INGREDI 2-10 4394072 00:00: 00 KETOROLA DRUG Active High Hives 2015-0 NPI:183 C INGREDI 2-10 [id number] TROMETHA 00:00: MINE 00 TRAMADOL DRUG Active High Anxiety NPI:183 INGREDI 2-10 7625657 00:00: 00 ONDANSET DRUG Active High Hives 2015-0 NPI:183 NAUHM HCL 2-10 [id number] (PF) 00:00: 00 Morphine Propensi Active Swelling NPI: 183 ty to 2-10 7091206 adverse 00:00: reaction 00 s Metoclop Propensi Active Swelling NPI: 183 ramide ty to 2-10 8564429 Hcl adverse 00:00: reaction 00 s Sulfur Propensi Active Swelling NPI:18 3 ty to 2-10 0066071 adverse 00:00: reaction 00 s Ketorola Propensi Active Swelling NPI: 183 c ty to 2-10 2411672 Trometha adverse 00:00: mine reaction 00 s Tramadol Propensi Active Swelling NPI: 183 ty to 2-10 1648924 adverse 00:00: reaction 00 s Ondanset Propensi Active Swelling NPI: 183 nahum Hcl ty to 2 0850123 (Pf) adverse 00:00: reaction 00 s Social History Social Habit Start Date Stop Date Quantity Comments Source ASSERTION 2021-07-11 00:00:00 History SDOH NPI:[id number] Alcohol Frequency History SDOH NPI:[id number] 81 Alcohol Std Drinks History SDOH NPI:[id number] 81 Alcohol Binge Alcohol intake 2021-08-22 2021-08-22 Ex-drinker NPI:[id number] 00:00:00 00:00:00 (finding) Exposure to 2021-06-23 2021-07-23 Not sure NPI:[id number] 1 SARS-CoV-2 (event) 00:00:00 09:09:00 Alcohol Comment 2020-10-15 2020-10-15 socially NPI:[id number] 00:00:00 00:00:00 Tobacco use and 2015-07-29 2015-07-29 Never used NPI:56693 18990 exposure 00:00:00 00:00:00 [birth year] NPI:19199 37319 00:00:00 00:00:00 Smoking Status Start Date Stop Date Source Never smoker Medications Ordered Filled Start Stop Current Ordering Indication Dosage Frequency Signature Comments Components Source Medication Medication Date Date Medication? Clinician (SIG) Name Name multivit,ca Yes Take by BUSINESS PROCESS LEAD I:183 lc,mins/iro 4-22 mouth. 798865 1 n/folic 09:35: (WOMEN'S 10 DAILY CAPLET ORAL) multivit,ca Yes Take by BUSINESS PROCESS LEAD I:183 lc,mins/iro 4-22 mouth. [id number] 1 n/folic 09:35: (WOMEN'S 10 DAILY CAPLET ORAL) multivit,ca Yes Take by BUSINESS PROCESS LEAD I:183 lc,mins/iro 4-22 mouth. [id number] 1 n/folic 09:35: (WOMEN'S 10 DAILY CAPLET ORAL) multivit,ca Yes Take by BUSINESS PROCESS LEAD I:183 lc,mins/iro 4-22 mouth. [id number] 1 n/folic 09:35: (WOMEN'S 10 DAILY CAPLET ORAL) multivit,ca 0 Yes Take by BUSINESS PROCESS LEAD I:183 lc,mins/iro 4-22 mouth. [id number] 1 n/folic 09:35: (WOMEN'S 10 DAILY CAPLET ORAL) multivit,ca 2021-0 Yes Take by BUSINESS PROCESS LEAD I:183 lc,mins/iro 4-22 mouth. [id number] 1 n/folic 09:35: (WOMEN'S 10 DAILY CAPLET ORAL) multivit,ca 0 Yes Take by BUSINESS PROCESS LEAD I:183 lc,mins/iro 4-22 mouth. [id number] 1 n/folic 09:35: (WOMEN'S 10 DAILY CAPLET ORAL) aspirin 81 0 2021- No 81mg Take 81 mg NPI:183 mg EC 08-08 by mouth [id number] tablet 09:21: 00:00 daily. 49 :00 NAPROXEN 2021-0 2021- No Take by NPI: 183 ORAL 08-08 mouth. [id number] 09:21: 00:00 40 :00 doxylamine- 2021-0 Yes [id number] 1{tbl} Take 1 NPI:183 pyridoxine, 4-22 tablet by 131 8781 vit B6, 00:00: mouth (DICLEGIS) 00 SEE-INSTRU 10-10 mg CTIONS. per tablet doxylamine- 2021-0 Yes [id number] 1{tbl} Take 1 NPI:183 pyridoxine, 4-22 tablet by 131 8781 vit B6, 00:00: mouth (DICLEGIS) 00 SEE-INSTRU 10-10 mg CTIONS. per tablet doxylamine- 2021-0 Yes [id number] 1{tbl} Take 1 NPI:183 pyridoxine, 4-22 tablet by 131 8781 vit B6, 00:00: mouth (DICLEGIS) 00 SEE-INSTRU 10-10 mg CTIONS. per tablet doxylamine- 2021-0 Yes [id number] 1{tbl} Take 1 NPI:183 pyridoxine, 4-22 tablet by 131 8781 vit B6, 00:00: mouth (DICLEGIS) 00 SEE-INSTRU 10-10 mg CTIONS. per tablet doxylamine- Yes [id number] 1{tbl} Take 1 NPI:183 pyridoxine, 4-22 tablet by 131 8781 vit B6, 00:00: mouth (DICLEGIS) 00 SEE-INSTRU 10-10 mg CTIONS. per tablet doxylamine- Yes [id number] 1{tbl} Take 1 NPI:183 pyridoxine, 4-22 tablet by 131 8781 vit B6, 00:00: mouth (DICLEGIS) 00 SEE-INSTRU 10-10 mg CTIONS. per tablet doxylamine- Yes [id number] 1{tbl} Take 1 NPI:183 pyridoxine, 4-22 tablet by 131 8781 vit B6, 00:00: mouth (DICLEGIS) 00 SEE-INSTRU 10-10 mg CTIONS. per tablet enoxaparin 2021- Yes [id number] 100mg inject 1 NPI:183 (LOVENOX) 4-08 10-22 mL under [address]87 81 100 mg/mL 00:00: 04:59 the skin injection 00 :00 every 12 (twelve) hours for 60 days. enoxaparin 2021- Yes [id number] 100mg inject 1 NPI:183 (LOVENOX) 4- 06-22 mL under 03284 81 100 mg/mL 00:00: 04:59 the skin injection 00 :00 every 12 (twelve) hours for 60 days. enoxaparin 2021- Yes [id number] 100mg inject 1 NPI:183 (LOVENOX) 4- 06-22 mL under 93905 81 100 mg/mL 00:00: 04:59 the skin injection 00 :00 every 12 (twelve) hours for 60 days. enoxaparin 2021- Yes [id number] 100mg inject 1 NPI:183 (LOVENOX) 4-22 06-22 mL under [id number] 81 100 mg/mL 00:00: 04:59 the skin injection 00 :00 every 12 (twelve) hours for 60 days. enoxaparin 2021- Yes [id number] 100mg inject 1 NPI:183 (LOVENOX) 4-22 06-22 mL under [id number] 81 100 mg/mL 00:00: 04:59 the skin injection 00 :00 every 12 (twelve) hours for 60 days. enoxaparin 2021- Yes [id number] 100mg inject 1 NPI:183 (LOVENOX) 4-22 06-22 mL under 02615 81 100 mg/mL 00:00: 04:59 the skin injection 00 :00 every 12 (twelve) hours for 60 days. enoxaparin 2021- Yes [id number] 100mg inject 1 NPI:183 (LOVENOX) 4-22 06-22 mL under 91092 81 100 mg/mL 00:00: 04:59 the skin injection 00 :00 every 12 (twelve) hours for 60 days. apixaban 5 Yes 5523 10mg Take 2 NPI:1 83 mg (74 3-14 tablets by [id number] tabs) 5 mg 00:00: mouth VTE starter 00 SEE-INSTRU pack CTIONS. Follow dosing instructio ns included in package. Indication s: history of deep vein thrombosis apixaban 5 0 Yes 5523 10mg Take 2 NPI:1 83 mg (74 3-14 tablets by [id number] tabs) 5 mg 00:00: mouth VTE starter 00 SEE-INSTRU pack CTIONS. Follow dosing instructio ns included in package. Indication s: history of deep vein thrombosis apixaban 5 2021-0 Yes 5523 10mg Take 2 NPI:1 83 mg (74 3-14 tablets by [id number] tabs) 5 mg 00:00: mouth VTE starter 00 SEE-INSTRU pack CTIONS. Follow dosing instructio ns included in package. Indication s: history of deep vein thrombosis apixaban 0 Yes 5523 10mg Take 2 NPI:1 83 mg (74 3-14 tablets by 2929844 tabs) 5 mg 00:00: mouth VTE starter 00 SEE-INSTRU pack CTIONS. Follow dosing instructio ns included in package. Indication s: history of deep vein thrombosis apixaban 5 2021- No 5523 10mg Take 2 NPI: 183 mg (74 3-14 04-22 tablets by 304440 1 tabs) 5 mg 00:00: 00:00 mouth VTE starter 00 :00 SEE-INSTRU pack CTIONS. Follow dosing instructio ns included in package. Indication s: history of deep vein thrombosis acetaminoph 2020-04- No 1000mg 1,000 mg, NPI:183 en 2-05 12-04 Oral, [id number] (TYLENOL) 00:45: 23:58 ONCE, 1 tablet 00 :00 dose, On 1,000 mg 03/22/21 at 1845, Routine enoxaparin 2020-04 Yes 1mg/kg 120 mg NPI :183 (LOVENOX) 0-03 (rounded [id number] 1 injection 18:15: from 118.8 120 mg 00 mg = 1 mg/kg ?118.8 kg), Subcutaneo us, Q12H ABX, First dose on 01/19/21 at 1315, Until Discontinu ed, Routine enoxaparin 2020-04- No [id number] 118.5mg inject NPI:183 (LOVENOX) 0-03 11-03 8 0.79 mL [id number] 1 120 mg/0.8 00:00: 04:59 under the mL 00 :00 skin every injection 12 (twelve) hours for 30 days. norethindro 2020- No Take by N PI:183 ne (FRANKI 10-15-29 mouth. [id number] ORAL) 16:08: 00:00 30 :00 norethindro 2020-0 2020- No Take by N PI:183 ne (FRANKI 6-29 mouth. [id number] ORAL) 16:08: 00:00 30 :00 norethindro 2020-0 Yes [id number] 1{tbl} Take 1 NPI:183 ne 0.35 mg 6-29 tablet by 1318 781 tablet 00:00: mouth 00 daily. norethindro 2020-0 Yes [id number] 1{tbl} Take 1 NPI:183 ne 0.35 mg 6-29 tablet by 1318 781 tablet 00:00: mouth 00 daily. norethindro 2020-0 Yes [id number] 1{tbl} Take 1 NPI:183 ne 0.35 mg 6-29 tablet by 1318 781 tablet 00:00: mouth 00 daily. norethindro 2020-0 Yes [id number] 1{tbl} Take 1 NPI:183 ne 0.35 mg 6-29 tablet by 1318 781 tablet 00:00: mouth 00 daily. norethindro 2020-0 Yes [id number] 1{tbl} Take 1 NPI:183 ne 0.35 mg 6-29 tablet by 1318 781 tablet 00:00: mouth 00 daily. norethindro 2020-0 Yes [id number] 1{tbl} Take 1 NPI:183 ne 0.35 mg 6-29 tablet by 1318 781 tablet 00:00: mouth 00 daily. norethindro 2020-0 Yes [id number] 1{tbl} Take 1 NPI:183 ne 0.35 mg 6-29 tablet by 1318 781 tablet 00:00: mouth 00 daily. norethindro 2020-0 Yes [id number] 1{tbl} Take 1 NPI:183 ne 0.35 mg 6-29 tablet by 1318 781 tablet 00:00: mouth 00 daily. norethindro 2020-0 Yes [id number] 1{tbl} Take 1 NPI:183 ne 0.35 mg 6-29 tablet by 1318 781 tablet 00:00: mouth 00 daily. norethindro 2020-0 Yes [id number] 1{tbl} Take 1 NPI:183 ne 0.35 mg 6-29 tablet by 1318 781 tablet 00:00: mouth 00 daily. norethindro 2020-0 Yes [id number] 1{tbl} Take 1 NPI:183 ne 0.35 mg 6-29 tablet by 1318 781 tablet 00:00: mouth 00 daily. norethindro 2020-0 Yes [id number] 1{tbl} Take 1 NPI:183 ne 0.35 mg 6-29 tablet by 1318 781 tablet 00:00: mouth 00 daily. norethindro 2020-0 2022- No [id number] 1{tbl} Take 1 NPI:183 ne 0.35 mg 6-29 04-22 tablet by 131 8781 tablet 00:00: 00:00 mouth 00 :00 daily. ibuprofen 2020-0 Yes [id number] 600mg Take 1 N PI:183 600 mg 4-23 tablet by [id number] tablet 00:00: mouth 00 every 6 (six) hours as needed for Pain (scale 4-6). benzonatate Yes [id number] 200mg Take 1 NPI:183 200 mg 4-23 capsule by [id number] capsule 00:00: mouth 3 00 (three) times daily as needed for Cough for up to 20 doses. proMETHazin Yes [id number] 25mg Take 2 NPI:183 e 12.5 mg 4-23 tablets by 1318 781 tablet 00:00: mouth 00 every 4 (four) hours as needed for Nausea and Vomiting (N/V). albuterol Yes [id number] 2{puff} Inhale 2 NPI:183 90 4-23 Puffs [id number] mcg/actuati 00:00: every 4 on inhaler 00 (four) hours as needed for Wheezing or Shortness of Breath. inhalationa Yes [id number] Use as NPI:183 l spacing 4-23 with MDI [id number] 1 device 00:00: as (BREATHERIT 00 directed E MDI SPACER) ibuprofen Yes [id number] 600mg Take 1 N PI:183 600 mg 4-23 tablet by [id number] tablet 00:00: mouth 00 every 6 (six) hours as needed for Pain (scale 4-6). benzonatate Yes [id number] 200mg Take 1 NPI:183 200 mg 4-23 capsule by [id number] capsule 00:00: mouth 3 00 (three) times daily as needed for Cough for up to 20 doses. proMETHazin Yes [id number] 25mg Take 2 NPI:183 e 12.5 mg 4-23 tablets by 1318 781 tablet 00:00: mouth 00 every 4 (four) hours as needed for Nausea and Vomiting (N/V). albuterol Yes [id number] 2{puff} Inhale 2 NPI:183 90 4-23 Puffs [id number] mcg/actuati 00:00: every 4 on inhaler 00 (four) hours as needed for Wheezing or Shortness of Breath. inhalationa Yes [id number] Use as NPI:183 l spacing 4-23 with MDI [id number] 1 device 00:00: as (BREATHERIT 00 directed E MDI SPACER) ibuprofen Yes [id number] 600mg Take 1 N PI:183 600 mg 4-23 tablet by [id number] tablet 00:00: mouth 00 every 6 (six) hours as needed for Pain (scale 4-6). benzonatate Yes [id number] 200mg Take 1 NPI:183 200 mg 4-23 capsule by [id number] capsule 00:00: mouth 3 00 (three) times daily as needed for Cough for up to 20 doses. proMETHazin Yes [id number] 25mg Take 2 NPI:183 e 12.5 mg 4-23 tablets by 1318 781 tablet 00:00: mouth 00 every 4 (four) hours as needed for Nausea and Vomiting (N/V). albuterol Yes [id number] 2{puff} Inhale 2 NPI:183 90 4-23 Puffs [id number] mcg/actuati 00:00: every 4 on inhaler 00 (four) hours as needed for Wheezing or Shortness of Breath. inhalationa Yes [id number] Use as NPI:183 l spacing 4-23 with MDI [id number] 1 device 00:00: as (BREATHERIT 00 directed E MDI SPACER) ibuprofen Yes [id number] 600mg Take 1 N PI:183 600 mg 4-23 tablet by [id number] tablet 00:00: mouth 00 every 6 (six) hours as needed for Pain (scale 4-6). benzonatate Yes [id number] 200mg Take 1 NPI:183 200 mg 4-23 capsule by 9603670 capsule 00:00: mouth 3 00 (three) times daily as needed for Cough for up to 20 doses. proMETHazin Yes [id number] 25mg Take 2 NPI:183 e 12.5 mg 4-23 tablets by 1318 781 tablet 00:00: mouth 00 every 4 (four) hours as needed for Nausea and Vomiting (N/V). albuterol Yes [id number] 2{puff} Inhale 2 NPI:183 90 4-23 Puffs [id number] mcg/actuati 00:00: every 4 on inhaler 00 (four) hours as needed for Wheezing or Shortness of Breath. inhalationa Yes [id number] Use as NPI:183 l spacing 4-23 with MDI [id number] 1 device 00:00: as (BREATHERIT 00 directed E MDI SPACER) ibuprofen Yes [id number] 600mg Take 1 N PI:183 600 mg 4-23 tablet by [id number] tablet 00:00: mouth 00 every 6 (six) hours as needed for Pain (scale 4-6). benzonatate Yes [id number] 200mg Take 1 NPI:183 200 mg 4-23 capsule by [id number] capsule 00:00: mouth 3 00 (three) times daily as needed for Cough for up to 20 doses. proMETHazin Yes [id number] 25mg Take 2 NPI:183 e 12.5 mg 4-23 tablets by 1318 781 tablet 00:00: mouth 00 every 4 (four) hours as needed for Nausea and Vomiting (N/V). albuterol Yes [id number] 2{puff} Inhale 2 NPI:183 90 4-23 Puffs [id number] mcg/actuati 00:00: every 4 on inhaler 00 (four) hours as needed for Wheezing or Shortness of Breath. inhalationa Yes [id number] Use as NPI:183 l spacing 4-23 with MDI [id number] 1 device 00:00: as (BREATHERIT 00 directed E MDI SPACER) ibuprofen Yes [id number] 600mg Take 1 N PI:183 600 mg 4-23 tablet by [id number] tablet 00:00: mouth 00 every 6 (six) hours as needed for Pain (scale 4-6). benzonatate Yes [id number] 200mg Take 1 NPI:183 200 mg 4-23 capsule by [id number] capsule 00:00: mouth 3 00 (three) times daily as needed for Cough for up to 20 doses. proMETHazin Yes [id number] 25mg Take 2 NPI:183 e 12.5 mg 4-23 tablets by 1318 781 tablet 00:00: mouth 00 every 4 (four) hours as needed for Nausea and Vomiting (N/V). albuterol Yes [id number] 2{puff} Inhale 2 NPI:183 90 4-23 Puffs [id number] mcg/actuati 00:00: every 4 on inhaler 00 (four) hours as needed for Wheezing or Shortness of Breath. inhalationa Yes [id number] Use as NPI:183 l spacing 4-23 with MDI [id number] 1 device 00:00: as (BREATHERIT 00 directed E MDI SPACER) ibuprofen Yes [id number] 600mg Take 1 N PI:183 600 mg 4-23 tablet by [id number] tablet 00:00: mouth 00 every 6 (six) hours as needed for Pain (scale 4-6). benzonatate Yes [id number] 200mg Take 1 NPI:183 200 mg 4-23 capsule by [id number] capsule 00:00: mouth 3 00 (three) times daily as needed for Cough for up to 20 doses. proMETHazin Yes [id number] 25mg Take 2 NPI:183 e 12.5 mg 4-23 tablets by 1318 781 tablet 00:00: mouth 00 every 4 (four) hours as needed for Nausea and Vomiting (N/V). albuterol Yes [id number] 2{puff} Inhale 2 NPI:183 90 4-23 Puffs [id number] mcg/actuati 00:00: every 4 on inhaler 00 (four) hours as needed for Wheezing or Shortness of Breath. inhalationa Yes [id number] Use as NPI:183 l spacing 4-23 with MDI [id number] 1 device 00:00: as (BREATHERIT 00 directed E MDI SPACER) ibuprofen Yes [id number] 600mg Take 1 N PI:183 600 mg 4-23 tablet by [id number] tablet 00:00: mouth 00 every 6 (six) hours as needed for Pain (scale 4-6). benzonatate Yes [id number] 200mg Take 1 NPI:183 200 mg 4-23 capsule by [id number] capsule 00:00: mouth 3 00 (three) times daily as needed for Cough for up to 20 doses. proMETHazin 0 Yes [id number] 25mg Take 2 NPI:183 e 12.5 mg 4-23 tablets by 1318 781 tablet 00:00: mouth 00 every 4 (four) hours as needed for Nausea and Vomiting (N/V). albuterol 2021-0 Yes [id number] 2{puff} Inhale 2 NPI:183 90 4-23 Puffs [id number] mcg/actuati 00:00: every 4 on inhaler 00 (four) hours as needed for Wheezing or Shortness of Breath. inhalationa Yes [id number] Use as NPI:183 l spacing 4-23 with MDI [id number] 1 device 00:00: as (BREATHERIT 00 directed E MDI SPACER) ibuprofen Yes [id number] 600mg Take 1 N PI:183 600 mg 4-23 tablet by [id number] tablet 00:00: mouth 00 every 6 (six) hours as needed for Pain (scale 4-6). benzonatate Yes [id number] 200mg Take 1 NPI:183 200 mg 4-23 capsule by [id number] capsule 00:00: mouth 3 00 (three) times daily as needed for Cough for up to 20 doses. proMETHazin Yes [id number] 25mg Take 2 NPI:183 e 12.5 mg 4-23 tablets by 1318 781 tablet 00:00: mouth 00 every 4 (four) hours as needed for Nausea and Vomiting (N/V). albuterol Yes [id number] 2{puff} Inhale 2 NPI:183 90 4-23 Puffs [id number] mcg/actuati 00:00: every 4 on inhaler 00 (four) hours as needed for Wheezing or Shortness of Breath. inhalationa Yes [id number] Use as NPI:183 l spacing 4-23 with MDI [id number] 1 device 00:00: as (BREATHERIT 00 directed E MDI SPACER) ibuprofen Yes [id number] 600mg Take 1 N PI:183 600 mg 4-23 tablet by [id number] tablet 00:00: mouth 00 every 6 (six) hours as needed for Pain (scale 4-6). benzonatate Yes [id number] 200mg Take 1 NPI:183 200 mg 4-23 capsule by [id number] capsule 00:00: mouth 3 00 (three) times daily as needed for Cough for up to 20 doses. proMETHazin Yes [id number] 25mg Take 2 NPI:183 e 12.5 mg 4-23 tablets by 1318 781 tablet 00:00: mouth 00 every 4 (four) hours as needed for Nausea and Vomiting (N/V). albuterol Yes [id number] 2{puff} Inhale 2 NPI:183 90 4-23 Puffs [id number] mcg/actuati 00:00: every 4 on inhaler 00 (four) hours as needed for Wheezing or Shortness of Breath. inhalationa Yes [id number] Use as NPI:183 l spacing 4-23 with MDI [id number] 1 device 00:00: as (BREATHERIT 00 directed E MDI SPACER) ibuprofen Yes [id number] 600mg Take 1 N PI:183 600 mg 4-23 tablet by [id number] tablet 00:00: mouth 00 every 6 (six) hours as needed for Pain (scale 4-6). benzonatate Yes [id number] 200mg Take 1 NPI:183 200 mg 4-23 capsule by [id number] capsule 00:00: mouth 3 00 (three) times daily as needed for Cough for up to 20 doses. proMETHazin Yes [id number] 25mg Take 2 NPI:183 e 12.5 mg 4-23 tablets by 1318 781 tablet 00:00: mouth 00 every 4 (four) hours as needed for Nausea and Vomiting (N/V). albuterol Yes [id number] 2{puff} Inhale 2 NPI:183 90 4-23 Puffs [id number] mcg/actuati 00:00: every 4 on inhaler 00 (four) hours as needed for Wheezing or Shortness of Breath. inhalationa Yes [id number] Use as NPI:183 l spacing 4-23 with MDI [id number] 1 device 00:00: as (BREATHERIT 00 directed E MDI SPACER) ibuprofen Yes [id number] 600mg Take 1 N PI:183 600 mg 4-23 tablet by [id number] tablet 00:00: mouth 00 every 6 (six) hours as needed for Pain (scale 4-6). benzonatate Yes [id number] 200mg Take 1 NPI:183 200 mg 4-23 capsule by [id number] capsule 00:00: mouth 3 00 (three) times daily as needed for Cough for up to 20 doses. proMETHazin Yes [id number] 25mg Take 2 NPI:183 e 12.5 mg 4-23 tablets by 1318 781 tablet 00:00: mouth 00 every 4 (four) hours as needed for Nausea and Vomiting (N/V). albuterol Yes [id number] 2{puff} Inhale 2 NPI:183 90 4-23 Puffs [id number] mcg/actuati 00:00: every 4 on inhaler 00 (four) hours as needed for Wheezing or Shortness of Breath. inhalationa Yes [id number] Use as NPI:183 l spacing 4-23 with MDI [id number] 1 device 00:00: as (BREATHERIT 00 directed E MDI SPACER) ibuprofen Yes [id number] 600mg Take 1 N PI:183 600 mg 4-23 tablet by [id number] tablet 00:00: mouth 00 every 6 (six) hours as needed for Pain (scale 4-6). benzonatate Yes [id number] 200mg Take 1 NPI:183 200 mg 4-23 capsule by [id number] capsule 00:00: mouth 3 00 (three) times daily as needed for Cough for up to 20 doses. proMETHazin Yes [id number] 25mg Take 2 NPI:183 e 12.5 mg 4-23 tablets by 1318 781 tablet 00:00: mouth 00 every 4 (four) hours as needed for Nausea and Vomiting (N/V). albuterol Yes [id number] 2{puff} Inhale 2 NPI:183 90 4-23 Puffs [id number] mcg/actuati 00:00: every 4 on inhaler 00 (four) hours as needed for Wheezing or Shortness of Breath. inhalationa Yes [id number] Use as NPI:183 l spacing 4-23 with MDI [id number] 1 device 00:00: as (BREATHERIT 00 directed E MDI SPACER) ibuprofen Yes [id number] 600mg Take 1 N PI:183 600 mg 4-23 tablet by [id number] tablet 00:00: mouth 00 every 6 (six) hours as needed for Pain (scale 4-6). benzonatate Yes [id number] 200mg Take 1 NPI:183 200 mg 4-23 capsule by [id number] capsule 00:00: mouth 3 00 (three) times daily as needed for Cough for up to 20 doses. proMETHazin Yes [id number] 25mg Take 2 NPI:183 e 12.5 mg 4-23 tablets by [id number] tablet 00:00: mouth 00 every 4 (four) hours as needed for Nausea and Vomiting (N/V). albuterol Yes [id number] 2{puff} Inhale 2 NPI:183 90 4-23 Puffs [id number] mcg/actuati 00:00: every 4 on inhaler 00 (four) hours as needed for Wheezing or Shortness of Breath. inhalationa Yes [id number] Use as NPI:183 l spacing 4-23 with MDI [id number] 1 device 00:00: as (BREATHERIT 00 directed E MDI SPACER) ibuprofen Yes [id number] 600mg Take 1 N PI:183 600 mg 4-23 tablet by [id number] tablet 00:00: mouth 00 every 6 (six) hours as needed for Pain (scale 4-6). benzonatate Yes [id number] 200mg Take 1 NPI:183 200 mg 4-23 capsule by [id number] capsule 00:00: mouth 3 00 (three) times daily as needed for Cough for up to 20 doses. proMETHazin Yes [id number] 25mg Take 2 NPI:183 e 12.5 mg 4-23 tablets by [id number] tablet 00:00: mouth 00 every 4 (four) hours as needed for Nausea and Vomiting (N/V). albuterol Yes [id number] 2{puff} Inhale 2 NPI:183 90 4-23 Puffs [id number] mcg/actuati 00:00: every 4 on inhaler 00 (four) hours as needed for Wheezing or Shortness of Breath. inhalationa Yes [id number] Use as NPI:183 l spacing 4-23 with MDI [id number] 1 device 00:00: as (BREATHERIT 00 directed E MDI SPACER) ibuprofen Yes [id number] 600mg Take 1 N PI:183 600 mg 4-23 tablet by [id number] tablet 00:00: mouth 00 every 6 (six) hours as needed for Pain (scale 4-6). benzonatate Yes [id number] 200mg Take 1 NPI:183 200 mg 4-23 capsule by [id number] capsule 00:00: mouth 3 00 (three) times daily as needed for Cough for up to 20 doses. proMETHazin Yes [id number] 25mg Take 2 NPI:183 e 12.5 mg 4-23 tablets by [id number] tablet 00:00: mouth 00 every 4 (four) hours as needed for Nausea and Vomiting (N/V). albuterol Yes [id number] 2{puff} Inhale 2 NPI:183 90 4-23 Puffs [id number] mcg/actuati 00:00: every 4 on inhaler 00 (four) hours as needed for Wheezing or Shortness of Breath. inhalationa Yes [id number] Use as NPI:183 l spacing 4-23 with MDI [id number] 1 device 00:00: as (BREATHERIT 00 directed E MDI SPACER) albuterol Yes [id number] 2{puff} Inhale 2 NPI:183 90 4-23 Puffs [id number] mcg/actuati 00:00: every 4 on inhaler 00 (four) hours as needed for Wheezing or Shortness of Breath. inhalationa Yes [id number] Use as NPI:183 l spacing 4-23 with MDI [id number] 1 device 00:00: as (BREATHERIT 00 directed E MDI SPACER) albuterol Yes [id number] 2{puff} Inhale 2 NPI:183 90 4-23 Puffs [id number] mcg/actuati 00:00: every 4 on inhaler 00 (four) hours as needed for Wheezing or Shortness of Breath. inhalationa Yes [id number] Use as NPI:183 l spacing 4-23 with MDI [id number] 1 device 00:00: as (BREATHERIT 00 directed E MDI SPACER) albuterol 0 Yes [id number] 2{puff} Inhale 2 NPI:183 90 4-23 Puffs [id number] mcg/actuati 00:00: every 4 on inhaler 00 (four) hours as needed for Wheezing or Shortness of Breath. inhalationa Yes [id number] Use as NPI:183 l spacing 4-23 with MDI [id number] 1 device 00:00: as (BREATHERIT 00 directed E MDI SPACER) albuterol 0 Yes [id number] 2{puff} Inhale 2 NPI:183 90 4-23 Puffs [id number] mcg/actuati 00:00: every 4 on inhaler 00 (four) hours as needed for Wheezing or Shortness of Breath. inhalationa Yes [id number] Use as NPI:183 l spacing 4-23 with MDI [id number] 1 device 00:00: as (BREATHERIT 00 directed E MDI SPACER) albuterol 0 Yes [id number] 2{puff} Inhale 2 NPI:183 90 4-23 Puffs [id number] mcg/actuati 00:00: every 4 on inhaler 00 (four) hours as needed for Wheezing or Shortness of Breath. inhalationa Yes [id number] Use as NPI:183 l spacing 4-23 with MDI [id number] 1 device 00:00: as (BREATHERIT 00 directed E MDI SPACER) albuterol 0 Yes [id number] 2{puff} Inhale 2 NPI:183 90 4-23 Puffs [id number] mcg/actuati 00:00: every 4 on inhaler 00 (four) hours as needed for Wheezing or Shortness of Breath. inhalationa Yes [id number] Use as NPI:183 l spacing 4-23 with MDI [id number] 1 device 00:00: as (BREATHERIT 00 directed E MDI SPACER) albuterol 0 Yes [id number] 2{puff} Inhale 2 NPI:183 90 4-23 Puffs [id number] mcg/actuati 00:00: every 4 on inhaler 00 (four) hours as needed for Wheezing or Shortness of Breath. inhalationa 0 Yes [id number] Use as NPI:183 l spacing 4-23 with MDI [id number] 1 device 00:00: as (BREATHERIT 00 directed E MDI SPACER) ibuprofen 2020-0 2022- No [id number] 600mg Take 1 NPI:183 600 mg 4-09 08- tablet by [id number] tablet 00:00: 00:00 mouth 00 :00 every 6 (six) hours as needed for Pain (scale 4-6). benzonatate 2021- No [id number] 200mg Take 1 NPI:183 200 mg -09 08- capsule by [id number] 1 capsule 00:00: 00:00 mouth 3 00 :00 (three) times daily as needed for Cough for up to 20 doses. proMETHazin 2021- No [id number] 25mg Take 2 NPI:183 e 12.5 mg -09 08- tablets by 131 [id number] tablet 00:00: 00:00 mouth 00 :00 every 4 (four) hours as needed for Nausea and Vomiting (N/V). norethindro 2020-0 Yes Take by [employer] I:183 ne (FRANKI 3-22 mouth. [id number] ORAL) 19:51: 47 norethindro 2020-0 Yes Take by [employer] I:183 ne (FRANKI 3-22 mouth. [id number] ORAL) 19:51: 47 norethindro 2020-0 Yes Take by [employer] I:183 ne (FRANKI 3-22 mouth. [id number] ORAL) 19:51: 47 norethindro 2020-0 Yes Take by [employer] I:183 ne (FRANKI 3-22 mouth. [id number] ORAL) 19:51: 47 norethindro 2020-0 Yes Take by [employer] I:183 ne (FRANKI 3-22 mouth. [id number] ORAL) 19:51: 47 norethindro 2020-0 Yes Take by [employer] I:183 ne (FRANKI 3-22 mouth. [id number] ORAL) 19:51: 47 norethindro 2020-0 Yes Take by [employer] I:183 ne (FRANKI 3-22 mouth. [id number] ORAL) 19:51: 47 norethindro 2021-0 Yes Take by [employer] I:183 ne (FRANKI 3-22 mouth. [id number] ORAL) 19:51: 47 norethindro 2021-0 Yes Take by [employer] I:183 ne (FRANKI 3-22 mouth. [id number] ORAL) 19:51: 47 aspirin 81 2021-0 Yes 81mg Take 81 mg N PI:183 mg EC 3-22 by mouth [id number] tablet 14:42: daily. 37 aspirin 81 2021-0 Yes 81mg Take 81 mg N PI:183 mg EC 3-22 by mouth [id number] tablet 14:42: daily. 37 aspirin 81 2021-0 Yes 81mg Take 81 mg N PI:183 mg EC 3-22 by mouth [id number] tablet 14:42: daily. 37 aspirin 81 2021-0 Yes 81mg Take 81 mg N PI:183 mg EC 3-22 by mouth [id number] tablet 14:42: daily. 37 aspirin 81 2021-0 Yes 81mg Take 81 mg N PI:183 mg EC 3-22 by mouth [id number] tablet 14:42: daily. 37 aspirin 81 2021-0 Yes 81mg Take 81 mg N PI:183 mg EC 3-22 by mouth [id number] tablet 14:42: daily. 37 aspirin 81 2021-0 Yes 81mg Take 81 mg N PI:183 mg EC 3-22 by mouth [id number] tablet 14:42: daily. 37 aspirin 81 2021-0 Yes 81mg Take 81 mg N PI:183 mg EC 3-22 by mouth [id number] tablet 14:42: daily. 37 aspirin 81 2021-0 Yes 81mg Take 81 mg N PI:183 mg EC 3-22 by mouth [id number] tablet 14:42: daily. 37 aspirin 81 2021-0 Yes 81mg Take 81 mg N PI:183 mg EC 3-22 by mouth [id number] tablet 14:42: daily. 37 aspirin 81 2021-0 Yes 81mg Take 81 mg N PI:183 mg EC 3-22 by mouth [id number] tablet 14:42: daily. 37 aspirin 81 2021-0 Yes 81mg Take 81 mg N PI:183 mg EC 3-22 by mouth [id number] tablet 14:42: daily. 37 aspirin 81 2021-0 Yes 81mg Take 81 mg N PI:183 mg EC 3-22 by mouth [id number] tablet 14:42: daily. 37 aspirin 81 2021-0 Yes 81mg Take 81 mg N PI:183 mg EC 3-22 by mouth [id number] tablet 09:42: daily. 37 aspirin 81 2021-0 Yes 81mg Take 81 mg N PI:183 mg EC 3-22 by mouth [id number] tablet 09:42: daily. 37 aspirin 81 2021-0 Yes 81mg Take 81 mg N PI:183 mg EC 3-22 by mouth [id number] tablet 09:42: daily. 37 aspirin 81 202-0 Yes 81mg Take 81 mg N PI:183 mg EC 3-22 by mouth [id number] tablet 09:42: daily. 37 aspirin 81 2021-0 Yes 81mg Take 81 mg N PI:183 mg EC 3-22 by mouth [id number] tablet 09:42: daily. 37 aspirin 81 2021-0 Yes 81mg Take 81 mg N PI:183 mg EC 3-22 by mouth [id number] tablet 09:42: daily. 37 aspirin 81 2021-0 Yes 81mg Take 81 mg N PI:183 mg EC 3-22 by mouth [id number] tablet 09:42: daily. 37 aspirin 81 2021-0 Yes 81mg Take 81 mg N PI:183 mg EC 3-22 by mouth [id number] tablet 09:42: daily. 37 gabapentin 202-0 Yes [id number] 100mg Take 1 NPI:183 (NEURONTIN) 3-22 capsule by 13 [id number] 100 mg 00:00: mouth capsule 00 daily. gabapentin 2020-0 Yes [id number] 100mg Take 1 NPI:183 (NEURONTIN) 3-22 capsule by 13 41721 100 mg 00:00: mouth capsule 00 daily. gabapentin 202-0 Yes [id number] 100mg Take 1 NPI:183 (NEURONTIN) 3-22 capsule by 13 00286 100 mg 00:00: mouth capsule 00 daily. gabapentin 2020-0 Yes [id number] 100mg Take 1 NPI:183 (NEURONTIN) 3-22 capsule by 13 [id number] 100 mg 00:00: mouth capsule 00 daily. gabapentin 2020-0 Yes [id number] 100mg Take 1 NPI:183 (NEURONTIN) 3-22 capsule by 13 46461 100 mg 00:00: mouth capsule 00 daily. gabapentin 202-0 Yes [id number] 100mg Take 1 NPI:183 (NEURONTIN) 3-22 capsule by 13 15639 100 mg 00:00: mouth capsule 00 daily. gabapentin 2021-0 Yes [id number] 100mg Take 1 NPI:183 (NEURONTIN) 3-22 capsule by 13 44816 100 mg 00:00: mouth capsule 00 daily. gabapentin 2021-0 Yes [id number] 100mg Take 1 NPI:183 (NEURONTIN) 3-22 capsule by 13 [id number] 100 mg 00:00: mouth capsule 00 daily. gabapentin 202-0 Yes [id number] 100mg Take 1 NPI:183 (NEURONTIN) 3-22 capsule by 13 [id number] 100 mg 00:00: mouth capsule 00 daily. gabapentin 2020-0 Yes [id number] 100mg Take 1 NPI:183 (NEURONTIN) 3-22 capsule by 13 [id number] 100 mg 00:00: mouth capsule 00 daily. gabapentin 2020-0 Yes [id number] 100mg Take 1 NPI:183 (NEURONTIN) 3-22 capsule by 13 16140 100 mg 00:00: mouth capsule 00 daily. gabapentin 2020-0 Yes [id number] 100mg Take 1 NPI:183 (NEURONTIN) 3-22 capsule by 13 [id number] 100 mg 00:00: mouth capsule 00 daily. gabapentin 2020-0 Yes [id number] 100mg Take 1 NPI:183 (NEURONTIN) 3-22 capsule by 13 [id number] 100 mg 00:00: mouth capsule 00 daily. gabapentin 2020-0 Yes [id number] 100mg Take 1 NPI:183 (NEURONTIN) 3-22 capsule by 13 [id number] 100 mg 00:00: mouth capsule 00 daily. gabapentin 2020-0 Yes [id number] 100mg Take 1 NPI:183 (NEURONTIN) 3-22 capsule by 13 21929 100 mg 00:00: mouth capsule 00 daily. gabapentin 2020-0 Yes [id number] 100mg Take 1 NPI:183 (NEURONTIN) 3-22 capsule by 13 [id number] 100 mg 00:00: mouth capsule 00 daily. gabapentin 2020-0 Yes [id number] 100mg Take 1 NPI:183 (NEURONTIN) 3-22 capsule by 13 [id number] 100 mg 00:00: mouth capsule 00 daily. gabapentin 2020-0 Yes [id number] 100mg Take 1 NPI:183 (NEURONTIN) 3-22 capsule by 13 23063 100 mg 00:00: mouth capsule 00 daily. gabapentin 2020-0 Yes [id number] 100mg Take 1 NPI:183 (NEURONTIN) 3-22 capsule by 13 [id number] 100 mg 00:00: mouth capsule 00 daily. gabapentin 2020-0 Yes [id number] 100mg Take 1 NPI:183 (NEURONTIN) 3-22 capsule by 13 [id number] 100 mg 00:00: mouth capsule 00 daily. gabapentin 2020-0 Yes [id number] 100mg Take 1 NPI:183 (NEURONTIN) 3-22 capsule by 13 [id number] 100 mg 00:00: mouth capsule 00 daily. gabapentin 2021-0 2022- No [id number] 100mg Take 1 NPI:183 (NEURONTIN) 3-22 04-22 capsule by 1 [id number] 100 mg 00:00: 00:00 mouth capsule 00 :00 daily. clomiPHENE 2020-0 Yes [id number] Take 3 NPI:183 50 mg 5-28 tablets by [id number] tablet 00:00: mouth 00 every day on cycle day 3 through 7. medroxyPROG 2020-0 Yes [id number] Take one NPI:183 ESTERone 5-28 tablet by [id number] 1 (PROVERA) 00:00: mouth 10 mg 00 every day tablet for 10 days of the month as directed. clomiPHENE 2020-0 Yes [id number] Take 3 NPI:183 50 mg 5-28 tablets by [id number] tablet 00:00: mouth 00 every day on cycle day 3 through 7. medroxyPROG 2020-0 Yes [id number] Take one NPI:183 ESTERone 5-28 tablet by [id number] 1 (PROVERA) 00:00: mouth 10 mg 00 every day tablet for 10 days of the month as directed. clomiPHENE 2020-0 Yes [id number] Take 3 NPI:183 50 mg 5-28 tablets by [id number] tablet 00:00: mouth 00 every day on cycle day 3 through 7. medroxyPROG 2020-0 Yes [id number] Take one NPI:183 ESTERone 5-28 tablet by [id number] 1 (PROVERA) 00:00: mouth 10 mg 00 every day tablet for 10 days of the month as directed. clomiPHENE 2020-0 Yes [id number] Take 3 NPI:183 50 mg 5-28 tablets by [id number] tablet 00:00: mouth 00 every day on cycle day 3 through 7. medroxyPROG 2020-0 Yes [id number] Take one NPI:183 ESTERone 5-28 tablet by [id number] 1 (PROVERA) 00:00: mouth 10 mg 00 every day tablet for 10 days of the month as directed. clomiPHENE 2020-0 Yes [id number] Take 3 NPI:183 50 mg 5-28 tablets by [id number] tablet 00:00: mouth 00 every day on cycle day 3 through 7. medroxyPROG 2020-0 Yes [id number] Take one NPI:183 ESTERone 5-28 tablet by [id number] 1 (PROVERA) 00:00: mouth 10 mg 00 every day tablet for 10 days of the month as directed. clomiPHENE 2020-0 Yes [id number] Take 3 NPI:183 50 mg 5-28 tablets by [id number] tablet 00:00: mouth 00 every day on cycle day 3 through 7. medroxyPROG 2020-0 Yes [id number] Take one NPI:183 ESTERone 5-28 tablet by [id number] 1 (PROVERA) 00:00: mouth 10 mg 00 every day tablet for 10 days of the month as directed. clomiPHENE 2020-0 Yes [id number] Take 3 NPI:183 50 mg 5-28 tablets by [id number] tablet 00:00: mouth 00 every day on cycle day 3 through 7. medroxyPROG 2020-0 Yes [id number] Take one NPI:183 ESTERone 5-28 tablet by [id number] 1 (PROVERA) 00:00: mouth 10 mg 00 every day tablet for 10 days of the month as directed. clomiPHENE 2020-0 Yes [id number] Take 3 NPI:183 50 mg 5-28 tablets by [id number] tablet 00:00: mouth 00 every day on cycle day 3 through 7. medroxyPROG 2020-0 Yes [id number] Take one NPI:183 ESTERone 5-28 tablet by [id number] 1 (PROVERA) 00:00: mouth 10 mg 00 every day tablet for 10 days of the month as directed. clomiPHENE 2020-0 Yes [id number] Take 3 NPI:183 50 mg 5-28 tablets by [id number] tablet 00:00: mouth 00 every day on cycle day 3 through 7. medroxyPROG 2020-0 Yes [id number] Take one NPI:183 ESTERone 5-28 tablet by [id number] 1 (PROVERA) 00:00: mouth 10 mg 00 every day tablet for 10 days of the month as directed. clomiPHENE 2020-0 Yes [id number] Take 3 NPI:183 50 mg 5-28 tablets by [id number] tablet 00:00: mouth 00 every day on cycle day 3 through 7. medroxyPROG 2020-0 Yes [id number] Take one NPI:183 ESTERone 5-28 tablet by [id number] 1 (PROVERA) 00:00: mouth 10 mg 00 every day tablet for 10 days of the month as directed. clomiPHENE 2020-0 Yes [id number] Take 3 NPI:183 50 mg 5-28 tablets by [id number] tablet 00:00: mouth 00 every day on cycle day 3 through 7. medroxyPROG 2020-0 Yes [id number] Take one NPI:183 ESTERone 5-28 tablet by [id number] 1 (PROVERA) 00:00: mouth 10 mg 00 every day tablet for 10 days of the month as directed. clomiPHENE 2020-0 Yes [id number] Take 3 NPI:183 50 mg 5-28 tablets by [id number] tablet 00:00: mouth 00 every day on cycle day 3 through 7. medroxyPROG 2020-0 Yes [id number] Take one NPI:183 ESTERone 5-28 tablet by [id number] 1 (PROVERA) 00:00: mouth 10 mg 00 every day tablet for 10 days of the month as directed. clomiPHENE 2020-0 Yes [id number] Take 3 NPI:183 50 mg 5-28 tablets by [id number] tablet 00:00: mouth 00 every day on cycle day 3 through 7. clomiPHENE 2020-0 Yes [id number] Take 3 NPI:183 50 mg 5-28 tablets by [id number] tablet 00:00: mouth 00 every day on cycle day 3 through 7. clomiPHENE 2020-0 Yes [id number] Take 3 NPI:183 50 mg 5-28 tablets by [id number] tablet 00:00: mouth 00 every day on cycle day 3 through 7. clomiPHENE 2020-0 Yes [id number] Take 3 NPI:183 50 mg 5-28 tablets by [id number] tablet 00:00: mouth 00 every day on cycle day 3 through 7. clomiPHENE 2020-0 Yes [id number] Take 3 NPI:183 50 mg 5-28 tablets by [id number] tablet 00:00: mouth 00 every day on cycle day 3 through 7. clomiPHENE 2020-0 Yes [id number] Take 3 NPI:183 50 mg 5-28 tablets by [id number] tablet 00:00: mouth 00 every day on cycle day 3 through 7. clomiPHENE 2020-0 Yes [id number] Take 3 NPI:183 50 mg 5-28 tablets by [id number] tablet 00:00: mouth 00 every day on cycle day 3 through 7. clomiPHENE 2020-0 Yes [id number] Take 3 NPI:183 50 mg 5-28 tablets by [id number] tablet 00:00: mouth 00 every day on cycle day 3 through 7. clomiPHENE 2020-0 Yes [id number] Take 3 NPI:183 50 mg 5-28 tablets by [id number] tablet 00:00: mouth 00 every day on cycle day 3 through 7. clomiPHENE 2020-0 Yes [id number] Take 3 NPI:183 50 mg 5-28 tablets by [id number] tablet 00:00: mouth 00 every day on cycle day 3 through 7. clomiPHENE 2020-0 Yes [id number] Take 3 NPI:183 50 mg 5-28 tablets by [id number] tablet 00:00: mouth 00 every day on cycle day 3 through 7. clomiPHENE 2020-0 Yes [id number] Take 3 NPI:183 50 mg 5-28 tablets by [id number] tablet 00:00: mouth 00 every day on cycle day 3 through 7. clomiPHENE 2020-0 Yes [id number] Take 3 NPI:183 50 mg 5-28 tablets by [id number] tablet 00:00: mouth 00 every day on cycle day 3 through 7. medroxyPROG 2020-0 Yes [id number] Take one NPI:183 ESTERone 5-28 tablet by [id number] 1 (PROVERA) 00:00: mouth 10 mg 00 every day tablet for 10 days of the month as directed. clomiPHENE 2020-0 Yes [id number] Take 3 NPI:183 50 mg 5-28 tablets by [id number] tablet 00:00: mouth 00 every day on cycle day 3 through 7. medroxyPROG 2020-0 Yes [id number] Take one NPI:183 ESTERone 5-28 tablet by [id number] 1 (PROVERA) 00:00: mouth 10 mg 00 every day tablet for 10 days of the month as directed. clomiPHENE 2020-0 Yes [id number] Take 3 NPI:183 50 mg 5-28 tablets by [id number] tablet 00:00: mouth 00 every day on cycle day 3 through 7. medroxyPROG 2020-0 Yes [id number] Take one NPI:183 ESTERone 5-28 tablet by [id number] 1 (PROVERA) 00:00: mouth 10 mg 00 every day tablet for 10 days of the month as directed. clomiPHENE 2020-0 Yes [id number] Take 3 NPI:183 50 mg 5-28 tablets by [id number] tablet 00:00: mouth 00 every day on cycle day 3 through 7. medroxyPROG 2020-0 Yes [id number] Take one NPI:183 ESTERone 5-28 tablet by [id number] 1 (PROVERA) 00:00: mouth 10 mg 00 every day tablet for 10 days of the month as directed. clomiPHENE 2020-0 Yes [id number] Take 3 NPI:183 50 mg 5-28 tablets by [id number] tablet 00:00: mouth 00 every day on cycle day 3 through 7. medroxyPROG 2020-0 Yes [id number] Take one NPI:183 ESTERone 5-28 tablet by [id number] 1 (PROVERA) 00:00: mouth 10 mg 00 every day tablet for 10 days of the month as directed. clomiPHENE 2020-0 Yes [id number] Take 3 NPI:183 50 mg 5-28 tablets by [id number] tablet 00:00: mouth 00 every day on cycle day 3 through 7. medroxyPROG 2020-0 Yes [id number] Take one NPI:183 ESTERone 5-28 tablet by [id number] 1 (PROVERA) 00:00: mouth 10 mg 00 every day tablet for 10 days of the month as directed. clomiPHENE 2020-0 Yes [id number] Take 3 NPI:183 50 mg 5-28 tablets by [id number] tablet 00:00: mouth 00 every day on cycle day 3 through 7. medroxyPROG 2020-0 Yes [id number] Take one NPI:183 ESTERone 5-28 tablet by [id number] 1 (PROVERA) 00:00: mouth 10 mg 00 every day tablet for 10 days of the month as directed. clomiPHENE 2020-0 2- No [id number] Take 3 NPI:183 50 mg 5-28 04-22 tablets by [id number] tablet 00:00: 00:00 mouth 00 :00 every day on cycle day 3 through 7. medroxyPROG 2020-0 2021- No [id number] Take one NPI:183 ESTERone 5-28 06-[place] [id number] (PROVERA) 00:00: 00:00 mouth 10 mg 00 :00 every day tablet for 10 days of the month as directed. medroxyPROG 2020-0 2021- No [id number] Take one NPI:183 ESTERone 09-13 tablet [place] [id number] (PROVERA) 00:00: 00:00 mouth 10 mg 00 :00 every day tablet for 10 days of the month as directed. aspirin 81 2020-0 Yes 81mg Take 81 mg N PI:183 mg EC 4-09 by mouth [id number] tablet 15:29: daily. 50 NAPROXEN 2020-0 Yes Take by NPI:1 83 ORAL 4-09 mouth. [id number] 15:29: 50 PNV 2020-0 Yes Take by NPI:183 no.95/pedro pablo 4-09 mouth. [id number] 1 15:29: fum/folic 50 ac ( ORAL) aspirin 81 2020-0 Yes 81mg Take 81 mg N PI:183 mg EC 4-09 by mouth [id number] tablet 15:29: daily. 50 NAPROXEN 2020-0 Yes Take by NPI:1 83 ORAL 4-09 mouth. [id number] 15:29: 50 PNV 2020-0 Yes Take by NPI:183 no.95/pedro pablo 4-09 mouth. [id number] 1 us 15:29: fum/folic 50 ac ( ORAL) aspirin 81 2020-0 Yes 81mg Take 81 mg N PI:183 mg EC 4-09 by mouth [id number] tablet 15:29: daily. 50 NAPROXEN 2020-0 Yes Take by NPI:1 83 ORAL 4-09 mouth. [id number] 15:29: 50 PNV 2020-0 Yes Take by NPI:183 no.95/pedro pablo 4-09 mouth. [id number] 1 us 15:29: fum/folic 50 ac ( ORAL) NAPROXEN 2020-0 Yes Take by NPI:1 83 ORAL 4-09 mouth. [id number] 15:29: 50 PNV 2020-0 Yes Take by NPI:183 no.95/pedro pablo 4-09 mouth. [id number] 1 us 15:29: fum/folic 50 ac ( ORAL) NAPROXEN 2020-0 Yes Take by NPI:1 83 ORAL 4-09 mouth. [id number] 15:29: 50 PNV 2020-0 Yes Take by NPI:183 no.95/pedro pablo 4-09 mouth. [id number] 1 us 15:29: fum/folic 50 ac ( ORAL) NAPROXEN 2020-0 Yes Take by NPI:1 83 ORAL 4-09 mouth. [id number] 15:29: 50 PNV 2020-0 Yes Take by NPI:183 no.95/pedro pablo 4-09 mouth. [id number] 1 us 15:29: fum/folic 50 ac ( ORAL) NAPROXEN 2020-0 Yes Take by NPI:1 83 ORAL 4-09 mouth. [id number] 15:29: 50 PNV 2020-0 Yes Take by NPI:183 no.95/pedro pablo 4-09 mouth. [id number] 1 us 15:29: fum/folic 50 ac ( ORAL) NAPROXEN 2020-0 Yes Take by NPI:1 83 ORAL 4-09 mouth. [id number] 15:29: 50 PNV 2020-0 Yes Take by NPI:183 no.95/pedro pablo 4-09 mouth. [id number] 1 us 15:29: fum/folic 50 ac ( ORAL) NAPROXEN 2020-0 Yes Take by NPI:1 83 ORAL 4-09 mouth. [id number] 15:29: 50 PNV 2020-0 Yes Take by NPI:183 no.95/pedro pablo 4-09 mouth. [id number] 1 us 15:29: fum/folic 50 ac ( ORAL) NAPROXEN 2020-0 Yes Take by NPI:1 83 ORAL 4-09 mouth. [id number] 15:29: 50 PNV 2020-0 Yes Take by NPI:183 no.95/pedro pablo 4-09 mouth. [id number] 1 us 15:29: fum/folic 50 ac ( ORAL) NAPROXEN 2020-0 Yes Take by NPI:1 83 ORAL 4-09 mouth. [id number] 15:29: 50 PNV 2020-0 Yes Take by NPI:183 no.95/pedro pablo 4-09 mouth. [id number] 1 us 15:29: fum/folic 50 ac ( ORAL) NAPROXEN 2020-0 Yes Take by NPI:1 83 ORAL 4-09 mouth. [id number] 15:29: 50 PNV 2020-0 Yes Take by NPI:183 no.95/pedro pablo 4-09 mouth. [id number] 1 us 15:29: fum/folic 50 ac ( ORAL) NAPROXEN 2020-0 Yes Take by NPI:1 83 ORAL 4-09 mouth. [id number] 15:29: 50 PNV 2020-0 Yes Take by NPI:183 no.95/pedro pablo 4-09 mouth. [id number] 1 us 15:29: fum/folic 50 ac ( ORAL) NAPROXEN 2020-0 Yes Take by NPI:1 83 ORAL 4-09 mouth. [id number] 15:29: 50 PNV 2020-0 Yes Take by NPI:183 no.95/pedro pablo 4-09 mouth. [id number] 1 us 15:29: fum/folic 50 ac ( ORAL) NAPROXEN 2020-0 Yes Take by NPI:1 83 ORAL 4-09 mouth. [id number] 15:29: 50 PNV 2020-0 Yes Take by NPI:183 no.95/pedro pablo 4-09 mouth. [id number] 1 us 15:29: fum/folic 50 ac ( ORAL) NAPROXEN 2020-0 Yes Take by NPI:1 83 ORAL 4-09 mouth. [id number] 15:29: 50 PNV 2020-0 Yes Take by NPI:183 no.95/pedro pablo 4-09 mouth. [id number] 1 us 15:29: fum/folic 50 ac ( ORAL) aspirin 81 2020-0 Yes 81mg Take 81 mg N PI:183 mg EC 4-09 by mouth [id number] tablet 15:29: daily. 50 NAPROXEN 2020-0 Yes Take by NPI:1 83 ORAL 4-09 mouth. [id number] 15:29: 50 PNV 2020-0 Yes Take by NPI:183 no.95/pedro pablo 4-09 mouth. [id number] 1 us 15:29: fum/folic 50 ac ( ORAL) aspirin 81 2020-0 Yes 81mg Take 81 mg N PI:183 mg EC 4-09 by mouth [id number] tablet 15:29: daily. 50 NAPROXEN 2020-0 Yes Take by NPI:1 83 ORAL 4-09 mouth. [id number] 15:29: 50 PNV 2020-0 Yes Take by NPI:183 no.95/pedro pablo 4-09 mouth. [id number] 1 us 15:29: fum/folic 50 ac ( ORAL) aspirin 81 2020-0 Yes 81mg Take 81 mg N PI:183 mg EC 4-09 by mouth [id number] tablet 15:29: daily. 50 NAPROXEN 2020-0 Yes Take by NPI:1 83 ORAL 4-09 mouth. [id number] 15:29: 50 PNV 2020-0 Yes Take by NPI:183 no.95/pedro pablo 4-09 mouth. [id number] 1 us 15:29: fum/folic 50 ac ( ORAL) aspirin 81 2020-0 Yes 81mg Take 81 mg N PI:183 mg EC 4-09 by mouth [id number] tablet 15:29: daily. 50 NAPROXEN 2020-0 Yes Take by NPI:1 83 ORAL 4-09 mouth. [id number] 15:29: 50 PNV 2020-0 Yes Take by NPI:183 no.95/pedro pablo 4-09 mouth. [id number] 1 us 15:29: fum/folic 50 ac ( ORAL) aspirin 81 2020-0 Yes 81mg Take 81 mg N PI:183 mg EC 4-09 by mouth [id number] tablet 15:29: daily. 50 NAPROXEN 2020-0 Yes Take by NPI:1 83 ORAL 4-09 mouth. [id number] 15:29: 50 PNV 2020-0 Yes Take by NPI:183 no.95/pedro pablo 4-09 mouth. [id number] 1 us 15:29: fum/folic 50 ac ( ORAL) aspirin 81 2020-0 Yes 81mg Take 81 mg N PI:183 mg EC 4-09 by mouth [id number] tablet 15:29: daily. 50 NAPROXEN 2020-0 Yes Take by NPI:1 83 ORAL 4-09 mouth. [id number] 15:29: 50 PNV 2020-0 Yes Take by NPI:183 no.95/pedro pablo 4-09 mouth. [id number] 1 us 15:29: fum/folic 50 ac ( ORAL) aspirin 81 2020-0 Yes 81mg Take 81 mg N PI:183 mg EC 4-09 by mouth [id number] tablet 15:29: daily. 50 NAPROXEN 2020-0 Yes Take by NPI:1 83 ORAL 4-09 mouth. [id number] 15:29: 50 PNV 2020-0 Yes Take by NPI:183 no.95/pedro pablo 4-09 mouth. [id number] 1 us 15:29: fum/folic 50 ac ( ORAL) aspirin 81 2020-0 Yes 81mg Take 81 mg N PI:183 mg EC 4-09 by mouth [id number] tablet 15:29: daily. 50 NAPROXEN 2020-0 Yes Take by NPI:1 83 ORAL 4-09 mouth. [id number] 15:29: 50 PNV 2020-0 Yes Take by NPI:183 no.95/pedro pablo 4-09 mouth. [id number] 1 us 15:29: fum/folic 50 ac ( ORAL) aspirin 81 2020-0 Yes 81mg Take 81 mg N PI:183 mg EC 4-09 by mouth [id number] tablet 15:29: daily. 50 NAPROXEN 2020-0 Yes Take by NPI:1 83 ORAL 4-09 mouth. [id number] 15:29: 50 PNV 2020-0 Yes Take by NPI:183 no.95/pedro pablo 4-09 mouth. [id number] 1 us 15:29: fum/folic 50 ac ( ORAL) aspirin 81 2020-0 Yes 81mg Take 81 mg N PI:183 mg EC 4-09 by mouth [id number] tablet 15:29: daily. 50 NAPROXEN 2020-0 Yes Take by NPI:1 83 ORAL 4-09 mouth. [id number] 15:29: 50 PNV 2020-0 Yes Take by NPI:183 no.95/pedro pablo 4-09 mouth. [id number] 1 us 15:29: fum/folic 50 ac ( ORAL) aspirin 81 2020-0 Yes 81mg Take 81 mg N PI:183 mg EC 4-09 by mouth [id number] tablet 15:29: daily. 50 NAPROXEN 2020-0 Yes Take by NPI:1 83 ORAL 4-09 mouth. [id number] 15:29: 50 PNV 2020-0 Yes Take by NPI:183 no.95/pedro pablo 4-09 mouth. [id number] 1 us 15:29: fum/folic 50 ac ( ORAL) NAPROXEN 2020-0 Yes Take by NPI:1 83 ORAL 4-09 mouth. [id number] 10:29: 50 PNV 2020-0 Yes Take by NPI:183 no.95/pedro pablo 4-09 mouth. [id number] 1 10:29: fum/folic 50 ac ( ORAL) NAPROXEN 2020-0 Yes Take by NPI:1 83 ORAL 4-09 mouth. [id number] 10:29: 50 PNV 2020-0 Yes Take by NPI:183 no.95/pedro pablo 4-09 mouth. [id number] 1 us 10:29: fum/folic 50 ac ( ORAL) NAPROXEN 2020-0 Yes Take by NPI:1 83 ORAL 4-09 mouth. [id number] 10:29: 50 PNV 2020-0 Yes Take by NPI:183 no.95/pedro pablo 4-09 mouth. [id number] 1 us 10:29: fum/folic 50 ac ( ORAL) NAPROXEN 2020-0 Yes Take by NPI:1 83 ORAL 4-09 mouth. [id number] 10:29: 50 PNV 2020-0 Yes Take by NPI:183 no.95/pedro pablo 4-09 mouth. [id number] 1 us 10:29: fum/folic 50 ac ( ORAL) NAPROXEN 2020-0 Yes Take by NPI:1 83 ORAL 4-09 mouth. [id number] 10:29: 50 PNV 2020-0 Yes Take by NPI:183 no.95/pedro pablo 4-09 mouth. [id number] 1 us 10:29: fum/folic 50 ac ( ORAL) NAPROXEN 2020-0 Yes Take by NPI:1 83 ORAL 4-09 mouth. [id number] 10:29: 50 PNV 2020-0 Yes Take by NPI:183 no.95/pedro pablo 4-09 mouth. [id number] 1 us 10:29: fum/folic 50 ac ( ORAL) NAPROXEN 2020-0 Yes Take by NPI:1 83 ORAL 4-09 mouth. [id number] 10:29: 50 PNV 2020-0 Yes Take by NPI:183 no.95/pedro pablo 4-09 mouth. [id number] 1 us 10:29: fum/folic 50 ac ( ORAL) NAPROXEN 2020-0 Yes Take by NPI:1 83 ORAL 4-09 mouth. [id number] 10:29: 50 PNV 2020-0 Yes Take by NPI:183 no.95/pedro pablo 4-09 mouth. [id number] 1 us 10:29: fum/folic 50 ac ( ORAL) PNV 2020-0 Yes Take by NPI:183 no.95/pedro pablo 4-09 mouth. [id number] 1 us 10:29: fum/folic 50 ac ( ORAL) PNV 2020-0 Yes Take by NPI:183 no.95/pedro pablo 4-09 mouth. [id number] 1 us 10:29: fum/folic 50 ac ( ORAL) PNV 2020-0 Yes Take by NPI:183 no.95/pedro pablo 4-09 mouth. [id number] 1 us 10:29: fum/folic 50 ac ( ORAL) PNV 2020-0 Yes Take by NPI:183 no.95/pedro pablo 4-09 mouth. [id number] 1 us 10:29: fum/folic 50 ac ( ORAL) PNV 2020-0 Yes Take by NPI:183 no.95/pedro pablo 4-09 mouth. [id number] 1 us 10:29: fum/folic 50 ac ( ORAL) PNV 2020-0 Yes Take by NPI:183 no.95/pedro apblo 4-09 mouth. [id number] 1 us 10:29: fum/folic 50 ac ( ORAL) PNV 2020-0 Yes Take by NPI:183 no.95/pedro pablo 4-09 mouth. [id number] 1 us 10:29: fum/folic 50 ac ( ORAL) medroxyPROG 2020-0 Yes [id number] Take one NPI:183 ESTERone 4-09 by mouth [id number] (PROVERA) 00:00: daily 10 mg 00 every day tablet for 10 days. clomiPHENE 2020-0 Yes [id number] Take 150 NPI:183 50 mg 4-09 mg, or 3 [id number] tablet 00:00: tablets, 00 by mouth daily on cycle day 3-7. medroxyPROG 2020-0 Yes [id number] Take one NPI:183 ESTERone 4-09 by mouth [id number] (PROVERA) 00:00: daily 10 mg 00 every day tablet for 10 days. clomiPHENE 2020-0 Yes [id number] Take 150 NPI:183 50 mg 4-09 mg, or 3 [id number] tablet 00:00: tablets, 00 by mouth daily on cycle day 3-7. medroxyPROG 2020-0 Yes [id number] Take one NPI:183 ESTERone 4-09 by mouth [id number] (PROVERA) 00:00: daily 10 mg 00 every day tablet for 10 days. clomiPHENE 2020-0 Yes [id number] Take 150 NPI:183 50 mg 4-09 mg, or 3 [id number] tablet 00:00: tablets, 00 by mouth daily on cycle day 3-7. medroxyPROG 2020-0 Yes [id number] Take one NPI:183 ESTERone 4-09 by mouth [id number] (PROVERA) 00:00: daily 10 mg 00 every day tablet for 10 days. clomiPHENE 2020-0 Yes [id number] Take 150 NPI:183 50 mg 4-09 mg, or 3 [id number] tablet 00:00: tablets, 00 by mouth daily on cycle day 3-7. medroxyPROG 2020-0 2020- No [id number] Take one NPI:183 ESTERone 4-09 05-28 by mouth [id number] 1 (PROVERA) 00:00: 00:00 daily 10 mg 00 :00 every day tablet for 10 days. clomiPHENE 2020-0 2020- No [id number] Take 150 NPI:183 50 mg 4-09 05-28 mg, or 3 [id number] tablet 00:00: 00:00 tablets, 00 :00 by mouth daily on cycle day 3-7. medroxyPROG 2020-0 2020- No [id number] Take one NPI:183 ESTERone 4-09 05-28 by mouth [id number] 1 (PROVERA) 00:00: 00:00 daily 10 mg 00 :00 every day tablet for 10 days. clomiPHENE 2020-0 2020- No [id number] Take 150 NPI:183 50 mg 4-09 05-28 mg, or 3 [id number] tablet 00:00: 00:00 tablets, 00 :00 by mouth daily on cycle day 3-7. PNV 2020-0 Yes Take by NPI:183 no.95/pedro pablo 3-06 mouth. [id number] 1 us 14:23: fum/folic 52 ac ( ORAL) PNV 2020-0 Yes Take by NPI:183 no.95/pedro pablo 3-06 mouth. [id number] 1 us 14:23: fum/folic 52 ac ( ORAL) PNV 2020-0 Yes Take by NPI:183 no.95/pedro pablo 3-06 mouth. [id number] 1 us 14:23: fum/folic 52 ac ( ORAL) PNV 2020-0 Yes Take by NPI:183 no.95/pedro pablo 3-06 mouth. [id number] 1 us 14:23: fum/folic 52 ac ( ORAL) clomiPHENE 2020-0 Yes [id number] Take 2 NPI:183 50 mg 3-06 tablets by [id number] tablet 00:00: mouth 00 every day for 5 days beginning today. clomiPHENE 2020-0 Yes [id number] Take 2 NPI:183 50 mg 3-06 tablets by [id number] tablet 00:00: mouth 00 every day for 5 days beginning today. clomiPHENE 2020-0 Yes [id number] Take 2 NPI:183 50 mg 3-06 tablets by [id number] tablet 00:00: mouth 00 every day for 5 days beginning today. clomiPHENE 2020-0 2020- No [id number] Take 2 NPI:183 50 mg 3-06 04-09 tablets by [id number] tablet 00:00: 00:00 mouth 00 :00 every day for 5 days beginning today. clomiPHENE 2020-0 Yes [id number] Take one NPI:183 50 mg 1-16 by mouth [id number] tablet 00:00: on cycle 00 days 3-7 after the onset of your next menses. clomiPHENE 2020-0 Yes [id number] Take one NPI:183 50 mg 1-16 by mouth [id number] tablet 00:00: on cycle 00 days 3-7 after the onset of your next menses. clomiPHENE 2020-0 Yes [id number] Take one NPI:183 50 mg 1-16 by mouth [id number] tablet 00:00: on cycle 00 days 3-7 after the onset of your next menses. clomiPHENE 2020-0 2020- No [id number] Take one NPI:183 50 mg 1-16 03-06 by mouth [id number] tablet 00:00: 00:00 on cycle 00 :00 days 3-7 after the onset of your next menses. clomiPHENE 2020-0 2020- No [id number] Take one NPI:183 50 mg 1-16 03-06 by mouth [id number] tablet 00:00: 00:00 on cycle 00 :00 days 3-7 after the onset of your next menses. clomiPHENE 2020-0 2020- No [id number] Take one NPI:183 50 mg 1-16 03-06 by mouth [id number] tablet 00:00: 00:00 on cycle 00 :00 days 3-7 after the onset of your next menses. aspirin 81 2019-0 Yes 81mg Take 81 mg N PI:183 mg EC 6-17 by mouth [id number] tablet 16:24: daily. 23 aspirin 81 2019-0 Yes 81mg Take 81 mg N PI:183 mg EC 6-17 by mouth [id number] tablet 16:24: daily. 23 aspirin 81 2019-0 Yes 81mg Take 81 mg N PI:183 mg EC 6-17 by mouth [id number] tablet 16:24: daily. 23 aspirin 81 2019-0 Yes 81mg Take 81 mg N PI:183 mg EC 6-17 by mouth [id number] tablet 16:24: daily. 23 PNV 2019-0 Yes Take by NPI:183 no.95/pedro pablo 6-17 mouth. [id number] 1 us 16:24: fum/folic 23 ac ( ORAL) aspirin 81 2019-0 Yes 81mg Take 81 mg N PI:183 mg EC 6-17 by mouth [id number] tablet 16:24: daily. 23 PNV 0 Yes Take by NPI:183 no.95/pedro pablo 6-17 mouth. [id number] 1 us 16:24: fum/folic 23 ac ( ORAL) aspirin 81 2019-0 Yes 81mg Take 81 mg N PI:183 mg EC 6-17 by mouth [id number] tablet 16:24: daily. 23 PNV 0 Yes Take by NPI:183 no.95/pedro pablo 6-17 mouth. [id number] 1 us 16:24: fum/folic 23 ac ( ORAL) aspirin 81 2019-0 Yes 81mg Take 81 mg N PI:183 mg EC 6-17 by mouth [id number] tablet 16:24: daily. 23 metFORMIN 2019-0 Yes 1{tbl} Take 1 NPI: 183 500 mg 4-29 tablet by [id number] tablet 00:00: mouth 2 00 (two) times daily. metFORMIN 2019-0 Yes 1{tbl} Take 1 NPI: 183 500 mg 4-29 tablet by [id number] tablet 00:00: mouth 2 00 (two) times daily. metFORMIN 2019-0 Yes 1{tbl} Take 1 NPI: 183 500 mg 4-29 tablet by [id number] tablet 00:00: mouth 2 00 (two) times daily. metFORMIN 2019-0 Yes 1{tbl} Take 1 NPI: 183 500 mg 4-29 tablet by [id number] tablet 00:00: mouth 2 00 (two) times daily. metFORMIN 2019-0 Yes 1{tbl} Take 1 NPI: 183 500 mg 4-29 tablet by [id number] tablet 00:00: mouth 2 00 (two) times daily. metFORMIN 2019-0 Yes 1{tbl} Take 1 NPI: 183 500 mg 4-29 tablet by [id number] tablet 00:00: mouth 2 00 (two) times daily. metFORMIN 2019-0 Yes 1{tbl} Take 1 NPI: 183 500 mg 4-29 tablet by [id number] tablet 00:00: mouth 2 00 (two) times daily. metFORMIN 2019-0 Yes 1{tbl} Take 1 NPI: 183 500 mg 4-29 tablet by [id number] tablet 00:00: mouth 2 00 (two) times daily. metFORMIN 2019-0 Yes 1{tbl} Take 1 NPI: 183 500 mg 4-29 tablet by [id number] tablet 00:00: mouth 2 00 (two) times daily. metFORMIN 2019-0 Yes 1{tbl} Take 1 NPI: 183 500 mg 4-29 tablet by [id number] tablet 00:00: mouth 2 00 (two) times daily. metFORMIN 2019-0 Yes 1{tbl} Take 1 NPI: 183 500 mg 4-29 tablet by [id number] tablet 00:00: mouth 2 00 (two) times daily. metFORMIN 2019-0 Yes 1{tbl} Take 1 NPI: 183 500 mg 4-29 tablet by [id number] tablet 00:00: mouth 2 00 (two) times daily. metFORMIN 2019-0 Yes 1{tbl} Take 1 NPI: 183 500 mg 4-29 tablet by [id number] tablet 00:00: mouth 2 00 (two) times daily. metFORMIN 2019-0 Yes 1{tbl} Take 1 NPI: 183 500 mg 4-29 tablet by [id number] tablet 00:00: mouth 2 00 (two) times daily. metFORMIN 2019-0 Yes 1{tbl} Take 1 NPI: 183 500 mg 4-29 tablet by [id number] tablet 00:00: mouth 2 00 (two) times daily. metFORMIN 2019-0 Yes 1{tbl} Take 1 NPI: 183 500 mg 4-29 tablet by [id number] tablet 00:00: mouth 2 00 (two) times daily. metFORMIN 2019-0 Yes 1{tbl} Take 1 NPI: 183 500 mg 4-29 tablet by [id number] tablet 00:00: mouth 2 00 (two) times daily. metFORMIN 2019-0 Yes 1{tbl} Take 1 NPI: 183 500 mg 4-29 tablet by [id number] tablet 00:00: mouth 2 00 (two) times daily. metFORMIN 2019-0 Yes 1{tbl} Take 1 NPI: 183 500 mg 4-29 tablet by [id number] tablet 00:00: mouth 2 00 (two) times daily. metFORMIN 2019-0 Yes 1{tbl} Take 1 NPI: 183 500 mg 4-29 tablet by [id number] tablet 00:00: mouth 2 00 (two) times daily. metFORMIN 2019-0 Yes 1{tbl} Take 1 NPI: 183 500 mg 4-29 tablet by [id number] tablet 00:00: mouth 2 00 (two) times daily. metFORMIN 2019-0 Yes 1{tbl} Take 1 NPI: 183 500 mg 4-29 tablet by [id number] tablet 00:00: mouth 2 00 (two) times daily. metFORMIN 2019-0 Yes 1{tbl} Take 1 NPI: 183 500 mg 4-29 tablet by [id number] tablet 00:00: mouth 2 00 (two) times daily. metFORMIN 2019-0 Yes 1{tbl} Take 1 NPI: 183 500 mg 4-29 tablet by [id number] tablet 00:00: mouth 2 00 (two) times daily. metFORMIN 2019-0 Yes 1{tbl} Take 1 NPI: 183 500 mg 4-29 tablet by [id number] tablet 00:00: mouth 2 00 (two) times daily. metFORMIN 2019-0 Yes 1{tbl} Take 1 NPI: 183 500 mg 4-29 tablet by [id number] tablet 00:00: mouth 2 00 (two) times daily. metFORMIN 2019-0 Yes 1{tbl} Take 1 NPI: 183 500 mg 4-29 tablet by [id number] tablet 00:00: mouth 2 00 (two) times daily. metFORMIN 2019-0 Yes 1{tbl} Take 1 NPI: 183 500 mg 4-29 tablet by [id number] tablet 00:00: mouth 2 00 (two) times daily. metFORMIN 2019-0 Yes 1{tbl} Take 1 NPI: 183 500 mg 4-29 tablet by [id number] tablet 00:00: mouth 2 00 (two) times daily. metFORMIN 2019-0 Yes 1{tbl} Take 1 NPI: 183 500 mg 4-29 tablet by [id number] tablet 00:00: mouth 2 00 (two) times daily. metFORMIN 2019-0 Yes 1{tbl} Take 1 NPI: 183 500 mg 4-29 tablet by [id number] tablet 00:00: mouth 2 00 (two) times daily. metFORMIN 2019-0 Yes 1{tbl} Take 1 NPI: 183 500 mg 4-29 tablet by [id number] tablet 00:00: mouth 2 00 (two) times daily. metFORMIN 2019-0 Yes 1{tbl} Take 1 NPI: 183 500 mg 4-29 tablet by [id number] tablet 00:00: mouth 2 00 (two) times daily. metFORMIN 2019-0 Yes 1{tbl} Take 1 NPI: 183 500 mg 4-29 tablet by [id number] tablet 00:00: mouth 2 00 (two) times daily. metFORMIN 2019-0 Yes 1{tbl} Take 1 NPI: 183 500 mg 4-29 tablet by [id number] tablet 00:00: mouth 2 00 (two) times daily. metFORMIN 2019-0 Yes 1{tbl} Take 1 NPI: 183 500 mg 4-29 tablet by [id number] tablet 00:00: mouth 2 00 (two) times daily. metFORMIN 2019-0 Yes 1{tbl} Take 1 NPI: 183 500 mg 4-29 tablet by [id number] tablet 00:00: mouth 2 00 (two) times daily. metFORMIN 2019-0 Yes 1{tbl} Take 1 NPI: 183 500 mg 4-29 tablet by [id number] tablet 00:00: mouth 2 00 (two) times daily. metFORMIN 2019-0 Yes 1{tbl} Take 1 NPI: 183 500 mg 4-29 tablet by [id number] tablet 00:00: mouth 2 00 (two) times daily. metFORMIN 2019-0 Yes 1{tbl} Take 1 NPI: 183 500 mg 4-29 tablet by [id number] tablet 00:00: mouth 2 00 (two) times daily. metFORMIN 2019-0 Yes 1{tbl} Take 1 NPI: 183 500 mg 4-29 tablet by [id number] tablet 00:00: mouth 2 00 (two) times daily. metFORMIN 2019-0 Yes 1{tbl} Take 1 NPI: 183 500 mg 4-29 tablet by [id number] tablet 00:00: mouth 2 00 (two) times daily. metFORMIN 2019- 2022- No 1{tbl} Take 1 NPI :183 500 mg 4-29 04-22 tablet by [id number] tablet 00:00: 00:00 mouth 2 00 :00 (two) times daily. proMETHazin Yes [id number] 25mg Take 1 NPI:183 e 25 mg 2-09 tablet by [id number] tablet 00:00: mouth 00 every 6 (six) hours as needed for Nausea and Vomiting (N/V). proMETHazin Yes [id number] 25mg Take 1 NPI:183 e 25 mg 2-09 tablet by [id number] tablet 00:00: mouth 00 every 6 (six) hours as needed for Nausea and Vomiting (N/V). proMETHazin Yes [id number] 25mg Take 1 NPI:183 e 25 mg 2-09 tablet by [id number] tablet 00:00: mouth 00 every 6 (six) hours as needed for Nausea and Vomiting (N/V). proMETHazin Yes [id number] 25mg Take 1 NPI:183 e 25 mg 2-09 tablet by [id number] tablet 00:00: mouth 00 every 6 (six) hours as needed for Nausea and Vomiting (N/V). proMETHazin Yes [id number] 25mg Take 1 NPI:183 e 25 mg 2-09 tablet by [id number] tablet 00:00: mouth 00 every 6 (six) hours as needed for Nausea and Vomiting (N/V). proMETHazin Yes [id number] 25mg Take 1 NPI:183 e 25 mg 2-09 tablet by [id number] tablet 00:00: mouth 00 every 6 (six) hours as needed for Nausea and Vomiting (N/V). proMETHazin Yes [id number] 25mg Take 1 NPI:183 e 25 mg 2-09 tablet by [id number] tablet 00:00: mouth 00 every 6 (six) hours as needed for Nausea and Vomiting (N/V). proMETHazin Yes [id number] 25mg Take 1 NPI:183 e 25 mg 2-09 tablet by [id number] tablet 00:00: mouth 00 every 6 (six) hours as needed for Nausea and Vomiting (N/V). proMETHazin 2019-0 Yes [id number] 25mg Take 1 NPI:183 e 25 mg 2-09 tablet by [id number] tablet 00:00: mouth 00 every 6 (six) hours as needed for Nausea and Vomiting (N/V). proMETHazin 2019-0 Yes [id number] 25mg Take 1 NPI:183 e 25 mg 2-09 tablet by [id number] tablet 00:00: mouth 00 every 6 (six) hours as needed for Nausea and Vomiting (N/V). proMETHazin 2019-0 Yes [id number] 25mg Take 1 NPI:183 e 25 mg 2-09 tablet by [id number] tablet 00:00: mouth 00 every 6 (six) hours as needed for Nausea and Vomiting (N/V). proMETHazin 2019-0 Yes [id number] 25mg Take 1 NPI:183 e 25 mg 2-09 tablet by [id number] tablet 00:00: mouth 00 every 6 (six) hours as needed for Nausea and Vomiting (N/V). proMETHazin 2018-0 Yes [id number] 25mg Take 1 NPI:183 e 25 mg 2-09 tablet by [id number] tablet 00:00: mouth 00 every 6 (six) hours as needed for Nausea and Vomiting (N/V). proMETHazin 2019-0 Yes [id number] 25mg Take 1 NPI:183 e 25 mg 2-09 tablet by [id number] tablet 00:00: mouth 00 every 6 (six) hours as needed for Nausea and Vomiting (N/V). proMETHazin 2019-0 Yes [id number] 25mg Take 1 NPI:183 e 25 mg 2-09 tablet by [id number] tablet 00:00: mouth 00 every 6 (six) hours as needed for Nausea and Vomiting (N/V). proMETHazin 2019-0 Yes [id number] 25mg Take 1 NPI:183 e 25 mg 2-09 tablet by [id number] tablet 00:00: mouth 00 every 6 (six) hours as needed for Nausea and Vomiting (N/V). proMETHazin 2019-0 Yes [id number] 25mg Take 1 NPI:183 e 25 mg 2-09 tablet by [id number] tablet 00:00: mouth 00 every 6 (six) hours as needed for Nausea and Vomiting (N/V). proMETHazin 2019-0 Yes [id number] 25mg Take 1 NPI:183 e 25 mg 2-09 tablet by [id number] tablet 00:00: mouth 00 every 6 (six) hours as needed for Nausea and Vomiting (N/V). proMETHazin 2018-0 Yes [id number] 25mg Take 1 NPI:183 e 25 mg 2-09 tablet by [id number] tablet 00:00: mouth 00 every 6 (six) hours as needed for Nausea and Vomiting (N/V). proMETHazin 2018- Yes [id number] 25mg Take 1 NPI:183 e 25 mg 2-09 tablet by [id number] tablet 00:00: mouth 00 every 6 (six) hours as needed for Nausea and Vomiting (N/V). proMETHazin 2018-0 Yes [id number] 25mg Take 1 NPI:183 e 25 mg 2-09 tablet by [id number] tablet 00:00: mouth 00 every 6 (six) hours as needed for Nausea and Vomiting (N/V). proMETHazin 2018- Yes [id number] 25mg Take 1 NPI:183 e 25 mg 2-09 tablet by [id number] tablet 00:00: mouth 00 every 6 (six) hours as needed for Nausea and Vomiting (N/V). proMETHazin Yes [id number] 25mg Take 1 NPI:183 e 25 mg 2-09 tablet by [id number] tablet 00:00: mouth 00 every 6 (six) hours as needed for Nausea and Vomiting (N/V). proMETHazin 2018- Yes [id number] 25mg Take 1 NPI:183 e 25 mg 2-09 tablet by [id number] tablet 00:00: mouth 00 every 6 (six) hours as needed for Nausea and Vomiting (N/V). proMETHazin Yes [id number] 25mg Take 1 NPI:183 e 25 mg 2-09 tablet by [id number] tablet 00:00: mouth 00 every 6 (six) hours as needed for Nausea and Vomiting (N/V). proMETHazin 2018-0 Yes [id number] 25mg Take 1 NPI:183 e 25 mg 2-09 tablet by [id number] tablet 00:00: mouth 00 every 6 (six) hours as needed for Nausea and Vomiting (N/V). proMETHazin 2020- No [id number] 25mg Take 1 NPI:183 e 25 mg 05-28 tablet by [id number] 1 tablet 00:00: 00:00 mouth 00 :00 every 6 (six) hours as needed for Nausea and Vomiting (N/V). NAPROXEN 2018- Yes Take by NPI:1 83 ORAL 0-25 mouth. [id number] 19:32: 18 NAPROXEN 2017-04 Yes Take by NPI:1 83 ORAL 0-25 mouth. [id number] 19:32: 18 NAPROXEN 2017- Yes Take by NPI:1 83 ORAL 0-25 mouth. [id number] 19:32: 18 NAPROXEN 2017-04 Yes Take by NPI:1 83 ORAL 0-25 mouth. [id number] 19:32: 18 NAPROXEN 2017-04 Yes Take by NPI:1 83 ORAL 0-25 mouth. [id number] 19:32: 18 NAPROXEN 2017- Yes Take by NPI:1 83 ORAL 0-25 mouth. [id number] 19:32: 18 NAPROXEN 2017-04 Yes Take by NPI:1 83 ORAL 0-25 mouth. [id number] 19:32: 18 gabapentin 2018-0 Yes 100mg Take 1 NPI: 183 (NEURONTIN) 9-26 capsule by 13 [id number] 100 mg 00:00: mouth 3 capsule 00 (three) times daily. gabapentin 2018-0 Yes 100mg Take 1 NPI: 183 (NEURONTIN) 9-26 capsule by 13 [id number] 100 mg 00:00: mouth 3 capsule 00 (three) times daily. gabapentin 2018-0 Yes 100mg Take 1 NPI: 183 (NEURONTIN) 9-26 capsule by 13 [id number] 100 mg 00:00: mouth 3 capsule 00 (three) times daily. gabapentin 2018-0 Yes 100mg Take 1 NPI: 183 (NEURONTIN) 9-26 capsule by 13 [id number] 100 mg 00:00: mouth 3 capsule 00 (three) times daily. gabapentin 2018-0 Yes 100mg Take 1 NPI: 183 (NEURONTIN) 9-26 capsule by 13 [id number] 100 mg 00:00: mouth 3 capsule 00 (three) times daily. gabapentin 2018-0 Yes 100mg Take 1 NPI: 183 (NEURONTIN) 9-26 capsule by 13 [id number] 100 mg 00:00: mouth 3 capsule 00 (three) times daily. gabapentin 2018-0 Yes 100mg Take 1 NPI: 183 (NEURONTIN) 9-26 capsule by 13 [id number] 100 mg 00:00: mouth 3 capsule 00 (three) times daily. gabapentin 2018-0 Yes 100mg Take 1 NPI: 183 (NEURONTIN) 9-26 capsule by 13 [id number] 100 mg 00:00: mouth 3 capsule 00 (three) times daily. gabapentin 2018-0 Yes 100mg Take 1 NPI: 183 (NEURONTIN) 9-26 capsule by 13 [id number] 100 mg 00:00: mouth 3 capsule 00 (three) times daily. gabapentin 2018-0 Yes 100mg Take 1 NPI: 183 (NEURONTIN) 9-26 capsule by 13 [id number] 100 mg 00:00: mouth 3 capsule 00 (three) times daily. gabapentin 2018-0 Yes 100mg Take 1 NPI: 183 (NEURONTIN) 9-26 capsule by 13 [id number] 100 mg 00:00: mouth 3 capsule 00 (three) times daily. gabapentin 2018-0 Yes 100mg Take 1 NPI: 183 (NEURONTIN) 9-26 capsule by 13 [id number] 100 mg 00:00: mouth 3 capsule 00 (three) times daily. gabapentin 2018-0 Yes 100mg Take 1 NPI: 183 (NEURONTIN) 9-26 capsule by 13 [id number] 100 mg 00:00: mouth 3 capsule 00 (three) times daily. gabapentin 2018-0 Yes 100mg Take 1 NPI: 183 (NEURONTIN) 9-26 capsule by 13 [id number] 100 mg 00:00: mouth 3 capsule 00 (three) times daily. gabapentin 2018-0 Yes 100mg Take 1 NPI: 183 (NEURONTIN) 9-26 capsule by 13 [id number] 100 mg 00:00: mouth 3 capsule 00 (three) times daily. gabapentin 2018-0 Yes 100mg Take 1 NPI: 183 (NEURONTIN) 9-26 capsule by 13 [id number] 100 mg 00:00: mouth 3 capsule 00 (three) times daily. gabapentin 2018-0 Yes 100mg Take 1 NPI: 183 (NEURONTIN) 9-26 capsule by 13 [id number] 100 mg 00:00: mouth 3 capsule 00 (three) times daily. gabapentin 2018-0 Yes 100mg Take 1 NPI: 183 (NEURONTIN) 9-26 capsule by 13 [id number] 100 mg 00:00: mouth 3 capsule 00 (three) times daily. gabapentin 2018-0 Yes 100mg Take 1 NPI: 183 (NEURONTIN) 9-26 capsule by 13 13701 100 mg 00:00: mouth 3 capsule 00 (three) times daily. gabapentin 2018-0 Yes 100mg Take 1 NPI: 183 (NEURONTIN) 9- capsule by 13 [id number] 100 mg 00:00: mouth 3 capsule 00 (three) times daily. gabapentin 2018-0 Yes 100mg Take 1 NPI: 183 (NEURONTIN) 01-12 capsule by 13 [id number] 100 mg 00:00: mouth 3 capsule 00 (three) times daily. gabapentin 2018-0 202- No 100mg Take 1 NPI :183 (NEURONTIN) 01-12 capsule by 1 [id number] 100 mg 00:00: 00:00 mouth 3 capsule 00 :00 (three) times daily. gabapentin 2018-0 202- No 100mg Take 1 NPI :183 (NEURONTIN) 01-12 capsule by 1 [id number] 100 mg 00:00: 00:00 mouth 3 capsule 00 :00 (three) times daily. famotidine 2017-0 Yes 20mg Take 1 NPI:1 83 (PEPCID) 20 8-21 tablet by 131 8781 mg tablet 00:00: mouth 2 00 (two) times daily. famotidine 2017-0 Yes 20mg Take 1 NPI:1 83 (PEPCID) 20 8-21 tablet by 131 8781 mg tablet 00:00: mouth 2 00 (two) times daily. famotidine 2017-0 Yes 20mg Take 1 NPI:1 83 (PEPCID) 20 8-21 tablet by 131 8781 mg tablet 00:00: mouth 2 00 (two) times daily. famotidine 2017-0 Yes 20mg Take 1 NPI:1 83 (PEPCID) 20 8-21 tablet by 131 8781 mg tablet 00:00: mouth 2 00 (two) times daily. famotidine 2017-0 Yes 20mg Take 1 NPI:1 83 (PEPCID) 20 8-21 tablet by 131 8781 mg tablet 00:00: mouth 2 00 (two) times daily. famotidine 2017-0 Yes 20mg Take 1 NPI:1 83 (PEPCID) 20 8-21 tablet by 131 8781 mg tablet 00:00: mouth 2 00 (two) times daily. famotidine 2017-0 Yes 20mg Take 1 NPI:1 83 (PEPCID) 20 8-21 tablet by 131 8781 mg tablet 00:00: mouth 2 00 (two) times daily. famotidine 2017-0 Yes 20mg Take 1 NPI:1 83 (PEPCID) 20 8-21 tablet by 131 8781 mg tablet 00:00: mouth 2 00 (two) times daily. famotidine 2017-0 Yes 20mg Take 1 NPI:1 83 (PEPCID) 20 8-21 tablet by 131 8781 mg tablet 00:00: mouth 2 00 (two) times daily. famotidine 2017-0 Yes 20mg Take 1 NPI:1 83 (PEPCID) 20 8-21 tablet by 131 8781 mg tablet 00:00: mouth 2 00 (two) times daily. famotidine 2017-0 Yes 20mg Take 1 NPI:1 83 (PEPCID) 20 8-21 tablet by 131 8781 mg tablet 00:00: mouth 2 00 (two) times daily. famotidine 2017-0 Yes 20mg Take 1 NPI:1 83 (PEPCID) 20 8-21 tablet by 131 8781 mg tablet 00:00: mouth 2 00 (two) times daily. famotidine 2017-0 Yes 20mg Take 1 NPI:1 83 (PEPCID) 20 8-21 tablet by 131 8781 mg tablet 00:00: mouth 2 00 (two) times daily. famotidine 2017-0 Yes 20mg Take 1 NPI:1 83 (PEPCID) 20 8-21 tablet by 131 8781 mg tablet 00:00: mouth 2 00 (two) times daily. famotidine 2017-0 Yes 20mg Take 1 NPI:1 83 (PEPCID) 20 8-21 tablet by 131 8781 mg tablet 00:00: mouth 2 00 (two) times daily. famotidine 2017-0 Yes 20mg Take 1 NPI:1 83 (PEPCID) 20 8-21 tablet by 131 8781 mg tablet 00:00: mouth 2 00 (two) times daily. famotidine 2017-0 Yes 20mg Take 1 NPI:1 83 (PEPCID) 20 8-21 tablet by 131 8781 mg tablet 00:00: mouth 2 00 (two) times daily. famotidine 2017-0 Yes 20mg Take 1 NPI:1 83 (PEPCID) 20 8-21 tablet by 131 8781 mg tablet 00:00: mouth 2 00 (two) times daily. famotidine 2017-0 Yes 20mg Take 1 NPI:1 83 (PEPCID) 20 8-21 tablet by 131 8781 mg tablet 00:00: mouth 2 00 (two) times daily. famotidine 2017-0 Yes 20mg Take 1 NPI:1 83 (PEPCID) 20 8-21 tablet by 131 8781 mg tablet 00:00: mouth 2 00 (two) times daily. famotidine 2017-0 Yes 20mg Take 1 NPI:1 83 (PEPCID) 20 8-21 tablet by 131 8781 mg tablet 00:00: mouth 2 00 (two) times daily. famotidine 2017-0 Yes 20mg Take 1 NPI:1 83 (PEPCID) 20 8-21 tablet by 131 8781 mg tablet 00:00: mouth 2 00 (two) times daily. famotidine 2017-0 Yes 20mg Take 1 NPI:1 83 (PEPCID) 20 8-21 tablet by 131 8781 mg tablet 00:00: mouth 2 00 (two) times daily. famotidine 2017-0 Yes 20mg Take 1 NPI:1 83 (PEPCID) 20 8-21 tablet by 131 8781 mg tablet 00:00: mouth 2 00 (two) times daily. famotidine 2017-0 Yes 20mg Take 1 NPI:1 83 (PEPCID) 20 8-21 tablet by 131 8781 mg tablet 00:00: mouth 2 00 (two) times daily. famotidine 2017-0 Yes 20mg Take 1 NPI:1 83 (PEPCID) 20 8-21 tablet by 131 8781 mg tablet 00:00: mouth 2 00 (two) times daily. famotidine 2017-0 Yes 20mg Take 1 NPI:1 83 (PEPCID) 20 8-21 tablet by 131 8781 mg tablet 00:00: mouth 2 00 (two) times daily. famotidine 2017-0 Yes 20mg Take 1 NPI:1 83 (PEPCID) 20 8-21 tablet by 131 8781 mg tablet 00:00: mouth 2 00 (two) times daily. famotidine 2017-0 Yes 20mg Take 1 NPI:1 83 (PEPCID) 20 8-21 tablet by 131 8781 mg tablet 00:00: mouth 2 00 (two) times daily. famotidine 2017-0 Yes 20mg Take 1 NPI:1 83 (PEPCID) 20 8-21 tablet by 131 8781 mg tablet 00:00: mouth 2 00 (two) times daily. famotidine 2017-0 Yes 20mg Take 1 NPI:1 83 (PEPCID) 20 8-21 tablet by 131 8781 mg tablet 00:00: mouth 2 00 (two) times daily. famotidine 2017-0 Yes 20mg Take 1 NPI:1 83 (PEPCID) 20 8-21 tablet by 131 8781 mg tablet 00:00: mouth 2 00 (two) times daily. famotidine 2017-0 Yes 20mg Take 1 NPI:1 83 (PEPCID) 20 8-21 tablet by 131 8781 mg tablet 00:00: mouth 2 00 (two) times daily. famotidine 2017-0 Yes 20mg Take 1 NPI:1 83 (PEPCID) 20 8-21 tablet by 131 8781 mg tablet 00:00: mouth 2 00 (two) times daily. famotidine 2017-0 Yes 20mg Take 1 NPI:1 83 (PEPCID) 20 8-21 tablet by 131 8781 mg tablet 00:00: mouth 2 00 (two) times daily. famotidine 2017-0 Yes 20mg Take 1 NPI:1 83 (PEPCID) 20 8-21 tablet by 131 8781 mg tablet 00:00: mouth 2 00 (two) times daily. famotidine 2017-0 Yes 20mg Take 1 NPI:1 83 (PEPCID) 20 8-21 tablet by 131 8781 mg tablet 00:00: mouth 2 00 (two) times daily. famotidine 2017-0 Yes 20mg Take 1 NPI:1 83 (PEPCID) 20 8-21 tablet by 131 8781 mg tablet 00:00: mouth 2 00 (two) times daily. famotidine 2017-0 Yes 20mg Take 1 NPI:1 83 (PEPCID) 20 8-21 tablet by 131 8781 mg tablet 00:00: mouth 2 00 (two) times daily. famotidine 2017-0 Yes 20mg Take 1 NPI:1 83 (PEPCID) 20 8-21 tablet by 131 8781 mg tablet 00:00: mouth 2 00 (two) times daily. famotidine 2017-0 Yes 20mg Take 1 NPI:1 83 (PEPCID) 20 8-21 tablet by 131 8781 mg tablet 00:00: mouth 2 00 (two) times daily. famotidine 2017-0 Yes 20mg Take 1 NPI:1 83 (PEPCID) 20 8-21 tablet by 131 8781 mg tablet 00:00: mouth 2 00 (two) times daily. famotidine 2017-0 Yes 20mg Take 1 NPI:1 83 (PEPCID) 20 8-21 tablet by 131 8781 mg tablet 00:00: mouth 2 00 (two) times daily. famotidine 2017-0 Yes 20mg Take 1 NPI:1 83 (PEPCID) 20 8-21 tablet by 131 8781 mg tablet 00:00: mouth 2 00 (two) times daily. famotidine 2017-0 Yes 20mg Take 1 NPI:1 83 (PEPCID) 20 8-21 tablet by 131 8781 mg tablet 00:00: mouth 2 00 (two) times daily. famotidine 2017-0 Yes 20mg Take 1 NPI:1 83 (PEPCID) 20 8-21 tablet by 131 8781 mg tablet 00:00: mouth 2 00 (two) times daily. famotidine 2017-0 Yes 20mg Take 1 NPI:1 83 (PEPCID) 20 8-21 tablet by 131 8781 mg tablet 00:00: mouth 2 00 (two) times daily. famotidine 2017-0 Yes 20mg Take 1 NPI:1 83 (PEPCID) 20 8-21 tablet by 131 8781 mg tablet 00:00: mouth 2 00 (two) times daily. famotidine 2017-0 Yes 20mg Take 1 NPI:1 83 (PEPCID) 20 8-21 tablet by 131 8781 mg tablet 00:00: mouth 2 00 (two) times daily. Immunizations Ordered Immunization Filled Immunization Date Status Commen ts Source Name Name Td 2017-07-11 Completed NPI:[id number] 00:00:00 1 Td 2017-07-11 Completed NPI:[id number] 00:00:00 1 Td 2017-07-11 Completed NPI:[id number] 00:00:00 1 Td 2017-07-11 Completed NPI:[id number] 00:00:00 1 Td 2017-07-11 Completed NPI:[id number] 00:00:00 1 Td 2017-07-11 Completed NPI:[id number] 00:00:00 1 Td 2017-07-11 Completed NPI:[id number] 00:00:00 1 Td 2017-07-11 Completed NPI:[id number] 00:00:00 1 Td 2017-07-11 Completed NPI:[id number] 00:00:00 1 Td 2017-07-11 Completed NPI:[id number] 00:00:00 1 Td 2017-07-11 Completed NPI:[id number] 00:00:00 1 Td 2017-07-11 Completed NPI:[id number] 00:00:00 1 Td 2017-07-11 Completed NPI:[id number] 00:00:00 1 Td 2017-07-11 Completed NPI:[id number] 00:00:00 1 Td 2017-07-11 Completed NPI:[id number] 00:00:00 1 Td 2017-07-11 Completed NPI:[id number] 00:00:00 1 Td 2017-07-11 Completed NPI:[id number] 00:00:00 1 Td 2017-07-11 Completed NPI:[id number] 00:00:00 1 Td 2017-07-11 Completed NPI:[id number] 00:00:00 1 Td 2017-07-11 Completed NPI:[id number] 00:00:00 1 Td 2017-07-11 Completed NPI:[id number] 00:00:00 1 Td 2017-07-11 Completed NPI:[id number] 00:00:00 1 Td 2017-07-11 Completed NPI:[id number] 00:00:00 1 Td 2017-07-11 Completed NPI:[id number] 00:00:00 1 Td 2017-07-11 Completed NPI:[id number] 00:00:00 1 Td 2017-07-11 Completed NPI:[id number] 00:00:00 1 Td 2017-07-11 Completed NPI:[id number] 00:00:00 1 Td 2017-07-11 Completed NPI:[id number] 00:00:00 1 Td 2017-07-11 Completed NPI:[id number] 00:00:00 1 Td 2017-07-11 Completed NPI:[id number] 00:00:00 1 Td 2017-07-11 Completed NPI:[id number] 00:00:00 1 Td 2017-07-11 Completed NPI:[id number] 00:00:00 1 Td 2017-07-11 Completed NPI:[id number] 00:00:00 1 Td 2017-07-11 Completed NPI:[id number] 00:00:00 1 Td 2017-07-11 Completed NPI:[id number] 00:00:00 1 Td 2017-07-11 Completed NPI:[id number] 00:00:00 1 Td 2017-07-11 Completed NPI:[id number] 00:00:00 1 Td 2017-07-11 Completed NPI:[id number] 00:00:00 1 Td 2017-07-11 Completed NPI:[id number] 00:00:00 1 Td 2017-07-11 Completed NPI:[id number] 00:00:00 1 Td 2017-07-11 Completed NPI:[id number] 00:00:00 1 Td 2017-07-11 Completed NPI:[id number] 00:00:00 1 Td 2017-07-11 Completed NPI:[id number] 00:00:00 1 Td 2017-07-11 Completed NPI:[id number] 00:00:00 1 Td 2017-07-11 Completed NPI:[id number] 00:00:00 1 Td 2017-07-11 Completed NPI:[id number] 00:00:00 1 Td 2017-07-11 Completed NPI:[id number] 00:00:00 1 Td 2017-07-11 Completed NPI:[id number] 00:00:00 1 Td 2017-07-11 Completed NPI:[id number] 00:00:00 1 Tdap 2015-08-01 Completed NPI:[id number] 00:00:00 1 Influenza Virus 2015-08-01 Completed NPI:[id number] 1878 Vaccine Quad IM 3+ YRS 00:00:00 1 TDAP 2015-08-01 Completed NPI:[id number] 00:00:00 1 Influenza Virus 2015-08-01 Completed NPI:84296 1878 Vaccine Quad IM 3+ YRS 00:00:00 1 TDAP 2015-08-01 Completed NPI:[id number] 00:00:00 1 Influenza Virus 2015-08-01 Completed NPI:20211 1878 Vaccine Quad IM 3+ YRS 00:00:00 1 TDAP 2015-08-01 Completed NPI:[id number] 00:00:00 1 Influenza Virus 2015-08-01 Completed NPI:97879 1878 Vaccine Quad IM 3+ YRS 00:00:00 1 TDAP 2015-08-01 Completed NPI:[id number] 00:00:00 1 Influenza Virus 2015-08-01 Completed NPI:94212 1878 Vaccine Quad IM 3+ YRS 00:00:00 1 TDAP 2015-08-01 Completed NPI:[id number] 00:00:00 1 Influenza Virus 2015-08-01 Completed NPI:85162 1878 Vaccine Quad IM 3+ YRS 00:00:00 1 TDAP 2015-08-01 Completed NPI:[id number] 00:00:00 1 Influenza Virus 2015-08-01 Completed NPI:30092 1878 Vaccine Quad IM 3+ YRS 00:00:00 1 TDAP 2015-08-01 Completed NPI:[id number] 00:00:00 1 Influenza Virus 2015-08-01 Completed NPI:10569 1878 Vaccine Quad IM 3+ YRS 00:00:00 1 TDAP 2015-08-01 Completed NPI:[id number] 00:00:00 1 Influenza Virus 2015-08-01 Completed NPI:50882 1878 Vaccine Quad IM 3+ YRS 00:00:00 1 TDAP 2015-08-01 Completed NPI:[id number] 00:00:00 1 Influenza Virus 2015-08-01 Completed NPI:14051 1878 Vaccine Quad IM 3+ YRS 00:00:00 1 Tdap 2015-08-01 Completed NPI:[id number] 00:00:00 1 Influenza Virus 2015-08-01 Completed NPI:22105 1878 Vaccine Quad IM 3+ YRS 00:00:00 1 TDAP 2015-08-01 Completed NPI:[id number] 00:00:00 1 Influenza Virus 2015-08-01 Completed NPI:01724 1878 Vaccine Quad IM 3+ YRS 00:00:00 1 TDAP 2015-08-01 Completed NPI:[id number] 00:00:00 1 Influenza Virus 2015-08-01 Completed NPI:66753 1878 Vaccine Quad IM 3+ YRS 00:00:00 1 TDAP 2015-08-01 Completed NPI:[id number] 00:00:00 1 Influenza Virus 2015-08-01 Completed NPI:76023 1878 Vaccine Quad IM 3+ YRS 00:00:00 1 TDAP 2015-08-01 Completed NPI:[id number] 00:00:00 1 Influenza Virus 2015-08-01 Completed NPI:28804 1878 Vaccine Quad IM 3+ YRS 00:00:00 1 TDAP 2015-08-01 Completed NPI:[id number] 00:00:00 1 Influenza Virus 2015-08-01 Completed NPI:43910 1878 Vaccine Quad IM 3+ YRS 00:00:00 1 TDAP 2015-08-01 Completed NPI:[id number] 00:00:00 1 Influenza Virus 2015-08-01 Completed NPI:87460 1878 Vaccine Quad IM 3+ YRS 00:00:00 1 TDAP 2015-08-01 Completed NPI:[id number] 00:00:00 1 Influenza Virus 2015-08-01 Completed NPI:52838 1878 Vaccine Quad IM 3+ YRS 00:00:00 1 TDAP 2015-08-01 Completed NPI:[id number] 00:00:00 1 Influenza Virus 2015-08-01 Completed NPI:64588 1878 Vaccine Quad IM 3+ YRS 00:00:00 1 Tdap 2015-08-01 Completed NPI:[id number] 00:00:00 1 Influenza Virus 2015-08-01 Completed NPI:79598 1878 Vaccine Quad IM 3+ YRS 00:00:00 1 TDAP 2015-08-01 Completed NPI:[id number] 00:00:00 1 Influenza Virus 2015-08-01 Completed NPI:83871 1878 Vaccine Quad IM 3+ YRS 00:00:00 1 TDAP 2015-08-01 Completed NPI:[id number] 00:00:00 1 Influenza Virus 2015-08-01 Completed NPI:32325 1878 Vaccine Quad IM 3+ YRS 00:00:00 1 TDAP 2015-08-01 Completed NPI:[id number] 00:00:00 1 Influenza Virus 2015-08-01 Completed NPI:60391 1878 Vaccine Quad IM 3+ YRS 00:00:00 1 TDAP 2015-08-01 Completed NPI:[id number] 00:00:00 1 Influenza Virus 2015-08-01 Completed NPI:60059 1878 Vaccine Quad IM 3+ YRS 00:00:00 1 TDAP 2015-08-01 Completed NPI:[id number] 00:00:00 1 Influenza Virus 2015-08-01 Completed NPI:61683 1878 Vaccine Quad IM 3+ YRS 00:00:00 1 TDAP 2015-08-01 Completed NPI:[id number] 00:00:00 1 Influenza Virus 2015-08-01 Completed NPI:90697 1878 Vaccine Quad IM 3+ YRS 00:00:00 1 Tdap 2015-08-01 Completed NPI:[id number] 00:00:00 1 Influenza Virus 2015-08-01 Completed NPI:57569 1878 Vaccine Quad IM 3+ YRS 00:00:00 1 TDAP 2015-08-01 Completed NPI:[id number] 00:00:00 1 Influenza Virus 2015-08-01 Completed NPI:90789 1878 Vaccine Quad IM 3+ YRS 00:00:00 1 TDAP 2015-08-01 Completed NPI:[id number] 00:00:00 1 Influenza Virus 2015-08-01 Completed NPI:16000 1878 Vaccine Quad IM 3+ YRS 00:00:00 1 TDAP 2015-08-01 Completed NPI:[id number] 00:00:00 1 Influenza Virus 2015-08-01 Completed NPI:22533 1878 Vaccine Quad IM 3+ YRS 00:00:00 1 TDAP 2015-08-01 Completed NPI:[id number] 00:00:00 1 Influenza Virus 2015-08-01 Completed NPI:30203 1878 Vaccine Quad IM 3+ YRS 00:00:00 1 TDAP 2015-08-01 Completed NPI:[id number] 00:00:00 1 Influenza Virus 2015-08-01 Completed NPI:64836 1878 Vaccine Quad IM 3+ YRS 00:00:00 1 TDAP 2015-08-01 Completed NPI:[id number] 00:00:00 1 Influenza Virus 2015-08-01 Completed NPI:68010 1878 Vaccine Quad IM 3+ YRS 00:00:00 1 TDAP 2015-08-01 Completed NPI:[id number] 00:00:00 1 Influenza Virus 2015-08-01 Completed NPI:40394 1878 Vaccine Quad IM 3+ YRS 00:00:00 1 TDAP 2015-08-01 Completed NPI:[id number] 00:00:00 1 Influenza Virus 2015-08-01 Completed NPI:89888 1878 Vaccine Quad IM 3+ YRS 00:00:00 1 Tdap 2015-08-01 Completed NPI:[id number] 00:00:00 1 Influenza Virus 2015-08-01 Completed NPI:70181 1878 Vaccine Quad IM 3+ YRS 00:00:00 1 Tdap 2015-08-01 Completed NPI:[id number] 00:00:00 1 Influenza Virus 2015-08-01 Completed NPI:60957 1878 Vaccine Quad IM 3+ YRS 00:00:00 1 Tdap 2015-08-01 Completed NPI:[id number] 00:00:00 1 Influenza Virus 2015-08-01 Completed NPI:27364 1878 Vaccine Quad IM 3+ YRS 00:00:00 1 Tdap 2015-08-01 Completed NPI:[id number] 00:00:00 1 Influenza Virus 2015-08-01 Completed NPI:51819 1878 Vaccine Quad IM 3+ YRS 00:00:00 1 Tdap 2015-08-01 Completed NPI:[id number] 00:00:00 1 Influenza Virus 2015-08-01 Completed NPI:76308 1878 Vaccine Quad IM 3+ YRS 00:00:00 1 Tdap 2015-08-01 Completed NPI:[id number] 00:00:00 1 Influenza Virus 2015-08-01 Completed NPI:46529 1878 Vaccine Quad IM 3+ YRS 00:00:00 1 Tdap 2015-08-01 Completed NPI:[id number] 00:00:00 1 Influenza Virus 2015-08-01 Completed NPI:09241 1878 Vaccine Quad IM 3+ YRS 00:00:00 1 Tdap 2015-08-01 Completed NPI:[id number] 00:00:00 1 Influenza Virus 2015-08-01 Completed NPI:83990 1878 Vaccine Quad IM 3+ YRS 00:00:00 1 Tdap 2015-08-01 Completed NPI:[id number] 00:00:00 1 Influenza Virus 2015-08-01 Completed NPI:49038 1878 Vaccine Quad IM 3+ YRS 00:00:00 1 TDAP 2015-08-01 Completed NPI:[id number] 00:00:00 1 Influenza Virus 2015-08-01 Completed NPI:34086 1878 Vaccine Quad IM 3+ YRS 00:00:00 1 TDAP 2015-08-01 Completed NPI:[id number] 00:00:00 1 Influenza Virus 2015-08-01 Completed NPI:96276 1878 Vaccine Quad IM 3+ YRS 00:00:00 1 TDAP 2015-08-01 Completed NPI:[id number] 00:00:00 1 Influenza Virus 2015-08-01 Completed NPI:41949 1878 Vaccine Quad IM 3+ YRS 00:00:00 1 TDAP 2015-08-01 Completed NPI:[id number] 00:00:00 1 Influenza Virus 2015-08-01 Completed NPI:90092 1878 Vaccine Quad IM 3+ YRS 00:00:00 1 TDAP 2015-08-01 Completed NPI:[id number] 00:00:00 1 Influenza Virus 2015-08-01 Completed NPI:68631 1878 Vaccine Quad IM 3+ YRS 00:00:00 1 Influenza Virus 2010-04-10 Completed NPI:12581 1878 Vaccine (3+ yrs) 00:00:00 1 HEPATITIS A 2010-04-10 Completed NPI:[id number] 00:00:00 1 HPV 2010-04-10 Completed NPI:[id number] 00:00:00 1 Influenza Virus 2010-04-10 Completed NPI:71806 1878 Vaccine 00:00:00 1 Influenza Virus 2010-04-10 Completed NPI:95560 1878 Vaccine (3+ yrs) 00:00:00 1 HEPATITIS A 2010-04-10 Completed NPI:[id number] 00:00:00 1 HEPATITIS A 2010-04-10 Completed NPI:[id number] 00:00:00 1 HPV 2010-04-10 Completed NPI:[id number] 00:00:00 1 Influenza Virus 2010-04-10 Completed NPI:40843 1878 Vaccine 00:00:00 1 Influenza Virus 2010-04-10 Completed NPI:91716 1878 Vaccine (3+ yrs) 00:00:00 1 HEPATITIS A 2010-04-10 Completed NPI:[id number] 00:00:00 1 HPV 2010-04-10 Completed NPI:[id number] 00:00:00 1 Influenza Virus 2010-04-10 Completed NPI:37459 1878 Vaccine 00:00:00 1 Influenza Virus 2010-04-10 Completed NPI:11294 1878 Vaccine (3+ yrs) 00:00:00 1 HPV 2010-04-10 Completed NPI:[id number] 00:00:00 1 HEPATITIS A 2010-04-10 Completed NPI:[id number] 00:00:00 1 HPV 2010-04-10 Completed NPI:[id number] 00:00:00 1 Influenza Virus 2010-04-10 Completed NPI:24431 1878 Vaccine 00:00:00 1 Influenza Virus 2010-04-10 Completed NPI:76134 1878 Vaccine 00:00:00 1 Influenza Virus 2010-04-10 Completed NPI:20290 1878 Vaccine (3+ yrs) 00:00:00 1 HEPATITIS A 2010-04-10 Completed NPI:[id number] 00:00:00 1 HPV 2010-04-10 Completed NPI:[id number] 00:00:00 1 Influenza Virus 2010-04-10 Completed NPI:51128 1878 Vaccine 00:00:00 1 Influenza Virus 2010-04-10 Completed NPI:05041 1878 Vaccine (3+ yrs) 00:00:00 1 HEPATITIS A 2010-04-10 Completed NPI:[id number] 00:00:00 1 HPV 2010-04-10 Completed NPI:[id number] 00:00:00 1 Influenza Virus 2010-04-10 Completed NPI:20509 1878 Vaccine 00:00:00 1 Influenza Virus 2010-04-10 Completed NPI:93739 1878 Vaccine (3+ yrs) 00:00:00 1 Influenza Virus 2010-04-10 Completed NPI:15183 1878 Vaccine (3+ yrs) 00:00:00 1 HEPATITIS A 2010-04-10 Completed NPI:[id number] 00:00:00 1 HPV 2010-04-10 Completed NPI:[id number] 00:00:00 1 Influenza Virus 2010-04-10 Completed NPI:68457 1878 Vaccine 00:00:00 1 Influenza Virus 2010-04-10 Completed NPI:52143 1878 Vaccine (3+ yrs) 00:00:00 1 HEPATITIS A 2010-04-10 Completed NPI:[id number] 00:00:00 1 HPV 2010-04-10 Completed NPI:[id number] 00:00:00 1 Influenza Virus 2010-04-10 Completed NPI:39894 1878 Vaccine 00:00:00 1 Influenza Virus 2010-04-10 Completed NPI:45732 1878 Vaccine (3+ yrs) 00:00:00 1 HEPATITIS A 2010-04-10 Completed NPI:[id number] 00:00:00 1 HPV 2010-04-10 Completed NPI:[id number] 00:00:00 1 Influenza Virus 2010-04-10 Completed NPI:27437 1878 Vaccine 00:00:00 1 Influenza Virus 2010-04-10 Completed NPI:90805 1878 Vaccine (3+ yrs) 00:00:00 1 HEPATITIS A 2010-04-10 Completed NPI:[id number] 00:00:00 1 HPV 2010-04-10 Completed NPI:[id number] 00:00:00 1 Influenza Virus 2010-04-10 Completed NPI:09903 1878 Vaccine 00:00:00 1 Influenza Virus 2010-04-10 Completed NPI:04726 1878 Vaccine (3+ yrs) 00:00:00 1 HEPATITIS A 2010-04-10 Completed NPI:[id number] 00:00:00 1 HEPATITIS A 2010-04-10 Completed NPI:[id number] 00:00:00 1 HPV 2010-04-10 Completed NPI:[id number] 00:00:00 1 Influenza Virus 2010-04-10 Completed NPI:76738 1878 Vaccine 00:00:00 1 Influenza Virus 2010-04-10 Completed NPI:90326 1878 Vaccine (3+ yrs) 00:00:00 1 HEPATITIS A 2010-04-10 Completed NPI:[id number] 00:00:00 1 HPV 2010-04-10 Completed NPI:[id number] 00:00:00 1 Influenza Virus 2010-04-10 Completed NPI:13649 1878 Vaccine 00:00:00 1 HPV 2010-04-10 Completed NPI:[id number] 00:00:00 1 Influenza Virus 2010-04-10 Completed NPI:96638 1878 Vaccine (3+ yrs) 00:00:00 1 Influenza Virus 2010-04-10 Completed NPI:34866 1878 Vaccine 00:00:00 1 HEPATITIS A 2010-04-10 Completed NPI:[id number] 00:00:00 1 HPV 2010-04-10 Completed NPI:[id number] 00:00:00 1 Influenza Virus 2010-04-10 Completed NPI:34848 1878 Vaccine 00:00:00 1 Influenza Virus 2010-04-10 Completed NPI:56709 1878 Vaccine (3+ yrs) 00:00:00 1 HEPATITIS A 2010-04-10 Completed NPI:[id number] 00:00:00 1 HPV 2010-04-10 Completed NPI:[id number] 00:00:00 1 Influenza Virus 2010-04-10 Completed NPI:64830 1878 Vaccine 00:00:00 1 Influenza Virus 2010-04-10 Completed NPI:73656 1878 Vaccine (3+ yrs) 00:00:00 1 Influenza Virus 2010-04-10 Completed NPI:73152 1878 Vaccine (3+ yrs) 00:00:00 1 HEPATITIS A 2010-04-10 Completed NPI:[id number] 00:00:00 1 HPV 2010-04-10 Completed NPI:[id number] 00:00:00 1 Influenza Virus 2010-04-10 Completed NPI:49070 1878 Vaccine 00:00:00 1 Influenza Virus 2010-04-10 Completed NPI:33854 1878 Vaccine (3+ yrs) 00:00:00 1 HEPATITIS A 2010-04-10 Completed NPI:[id number] 00:00:00 1 HPV 2010-04-10 Completed NPI:[id number] 00:00:00 1 Influenza Virus 2010-04-10 Completed NPI:76331 1878 Vaccine 00:00:00 1 Influenza Virus 2010-04-10 Completed NPI:20589 1878 Vaccine (3+ yrs) 00:00:00 1 HEPATITIS A 2010-04-10 Completed NPI:[id number] 00:00:00 1 HPV 2010-04-10 Completed NPI:[id number] 00:00:00 1 Influenza Virus 2010-04-10 Completed NPI:69106 1878 Vaccine 00:00:00 1 Influenza Virus 2010-04-10 Completed NPI:78519 1878 Vaccine (3+ yrs) 00:00:00 1 HEPATITIS A 2010-04-10 Completed NPI:[id number] 00:00:00 1 HEPATITIS A 2010-04-10 Completed NPI:[id number] 00:00:00 1 HPV 2010-04-10 Completed NPI:[id number] 00:00:00 1 Influenza Virus 2010-04-10 Completed NPI:84720 1878 Vaccine 00:00:00 1 HPV 2010-04-10 Completed NPI:[id number] 00:00:00 1 Influenza Virus 2010-04-10 Completed NPI:58485 1878 Vaccine (3+ yrs) 00:00:00 1 Influenza Virus 2010-04-10 Completed NPI:21422 1878 Vaccine 00:00:00 1 HEPATITIS A 2010-04-10 Completed NPI:[id number] 00:00:00 1 HPV 2010-04-10 Completed NPI:[id number] 00:00:00 1 Influenza Virus 2010-04-10 Completed NPI:93478 1878 Vaccine 00:00:00 1 Influenza Virus 2010-04-10 Completed NPI:47560 1878 Vaccine (3+ yrs) 00:00:00 1 HEPATITIS A 2010-04-10 Completed NPI:[id number] 00:00:00 1 HPV 2010-04-10 Completed NPI:[id number] 00:00:00 1 Influenza Virus 2010-04-10 Completed NPI:66168 1878 Vaccine 00:00:00 1 Influenza Virus 2010-04-10 Completed NPI:10471 1878 Vaccine (3+ yrs) 00:00:00 1 Influenza Virus 2010-04-10 Completed NPI:99792 1878 Vaccine (3+ yrs) 00:00:00 1 HEPATITIS A 2010-04-10 Completed NPI:[id number] 00:00:00 1 HPV 2010-04-10 Completed NPI:[id number] 00:00:00 1 Influenza Virus 2010-04-10 Completed NPI:16910 1878 Vaccine 00:00:00 1 Influenza Virus 2010-04-10 Completed NPI:84321 1878 Vaccine (3+ yrs) 00:00:00 1 HEPATITIS A 2010-04-10 Completed NPI:[id number] 00:00:00 1 HPV 2010-04-10 Completed NPI:[id number] 00:00:00 1 Influenza Virus 2010-04-10 Completed NPI:55499 1878 Vaccine 00:00:00 1 Influenza Virus 2010-04-10 Completed NPI:95163 1878 Vaccine (3+ yrs) 00:00:00 1 HEPATITIS A 2010-04-10 Completed NPI:[id number] 00:00:00 1 HPV 2010-04-10 Completed NPI:[id number] 00:00:00 1 Influenza Virus 2010-04-10 Completed NPI:88554 1878 Vaccine 00:00:00 1 Influenza Virus 2010-04-10 Completed NPI:78317 1878 Vaccine (3+ yrs) 00:00:00 1 HEPATITIS A 2010-04-10 Completed NPI:[id number] 00:00:00 1 HPV 2010-04-10 Completed NPI:[id number] 00:00:00 1 Influenza Virus 2010-04-10 Completed NPI:82107 1878 Vaccine 00:00:00 1 Influenza Virus 2010-04-10 Completed NPI:58529 1878 Vaccine (3+ yrs) 00:00:00 1 HEPATITIS A 2010-04-10 Completed NPI:[id number] 00:00:00 1 HEPATITIS A 2010-04-10 Completed NPI:[id number] 00:00:00 1 HPV 2010-04-10 Completed NPI:[id number] 00:00:00 1 Influenza Virus 2010-04-10 Completed NPI:05958 1878 Vaccine 00:00:00 1 Influenza Virus 2010-04-10 Completed NPI:14393 1878 Vaccine (3+ yrs) 00:00:00 1 HPV 2010-04-10 Completed NPI:[id number] 00:00:00 1 HEPATITIS A 2010-04-10 Completed NPI:[id number] 00:00:00 1 HPV 2010-04-10 Completed NPI:[id number] 00:00:00 1 Influenza Virus 2010-04-10 Completed NPI:83768 1878 Vaccine 00:00:00 1 Influenza Virus 2010-04-10 Completed NPI:04518 1878 Vaccine (3+ yrs) 00:00:00 1 Influenza Virus 2010-04-10 Completed NPI:69428 1878 Vaccine 00:00:00 1 HEPATITIS A 2010-04-10 Completed NPI:[id number] 00:00:00 1 HPV 2010-04-10 Completed NPI:[id number] 00:00:00 1 Influenza Virus 2010-04-10 Completed NPI:50716 1878 Vaccine 00:00:00 1 Influenza Virus 2010-04-10 Completed NPI:47205 1878 Vaccine (3+ yrs) 00:00:00 1 HEPATITIS A 2010-04-10 Completed NPI:[id number] 00:00:00 1 HPV 2010-04-10 Completed NPI:[id number] 00:00:00 1 Influenza Virus 2010-04-10 Completed NPI:21472 1878 Vaccine 00:00:00 1 Influenza Virus 2010-04-10 Completed NPI:39149 1878 Vaccine (3+ yrs) 00:00:00 1 HEPATITIS A 2010-04-10 Completed NPI:[id number] 00:00:00 1 HPV 2010-04-10 Completed NPI:[id number] 00:00:00 1 Influenza Virus 2010-04-10 Completed NPI:[id number] [id number] Vaccine (3+ yrs) 00:00:00 1 Influenza Virus 2010-04-10 Completed NPI:[id number] 1878 Vaccine 00:00:00 1 Influenza Virus 2010-04-10 Completed NPI:[id number] Vaccine (3+ yrs) 00:00:00 1 HEPATITIS A 2010-04-10 Completed NPI:[id number] 00:00:00 1 HPV 2010-04-10 Completed NPI:[id number] 00:00:00 1 Influenza Virus 2010-04-10 Completed NPI:[id number] 1878 Vaccine 00:00:00 1 Influenza Virus 2010-04-10 Completed NPI:[id number] Vaccine (3+ yrs) 00:00:00 1 HEPATITIS A 2010-04-10 Completed NPI:[id number] 00:00:00 1 HPV 2010-04-10 Completed NPI:[id number] 00:00:00 1 Influenza Virus 2010-04-10 Completed NPI:[id number] 1878 Vaccine 00:00:00 1 Influenza Virus 2010-04-10 Completed NPI:[id number] Vaccine (3+ yrs) 00:00:00 1 HEPATITIS A 2010-04-10 Completed NPI:[id number] 00:00:00 1 HPV 2010-04-10 Completed NPI:[id number] 00:00:00 1 Influenza Virus 2010-04-10 Completed NPI:[id number] 1878 Vaccine 00:00:00 1 Influenza Virus 2010-04-10 Completed NPI:[id number] 1878 Vaccine (3+ yrs) 00:00:00 1 HEPATITIS A 2010-04-10 Completed NPI:[id number] 00:00:00 1 HPV 2010-04-10 Completed NPI:[id number] 00:00:00 1 Influenza Virus 2010-04-10 Completed NPI:[id number] 1878 Vaccine 00:00:00 1 Influenza Virus 2010-04-10 Completed NPI:[id number] 1878 Vaccine (3+ yrs) 00:00:00 1 HEPATITIS A 2010-04-10 Completed NPI:[id number] 00:00:00 1 HPV 2010-04-10 Completed NPI:[id number] 00:00:00 1 Influenza Virus 2010-04-10 Completed NPI:[id number] 1878 Vaccine 00:00:00 1 Influenza Virus 2010-04-10 Completed NPI:[id number] 1878 Vaccine (3+ yrs) 00:00:00 1 HEPATITIS A 2010-04-10 Completed NPI:[id number] 00:00:00 1 HPV 2010-04-10 Completed NPI:[id number] 00:00:00 1 Influenza Virus 2010-04-10 Completed NPI:[id number] 1878 Vaccine 00:00:00 1 Influenza Virus 2010-04-10 Completed NPI:[id number] 1878 Vaccine (3+ yrs) 00:00:00 1 HEPATITIS A 2010-04-10 Completed NPI:[id number] 00:00:00 1 HPV 2010-04-10 Completed NPI:[id number] 00:00:00 1 Influenza Virus 2010-04-10 Completed NPI:[id number] 1878 Vaccine 00:00:00 1 Influenza Virus 2010-04-10 Completed NPI:[id number] 1878 Vaccine (3+ yrs) 00:00:00 1 HEPATITIS A 2010-04-10 Completed NPI:[id number] 00:00:00 1 HPV 2010-04-10 Completed NPI:[id number] 00:00:00 1 Influenza Virus 2010-04-10 Completed NPI:[id number] 1878 Vaccine 00:00:00 1 Influenza Virus 2010-04-10 Completed NPI:[id number] 1878 Vaccine (3+ yrs) 00:00:00 1 HEPATITIS A 2010-04-10 Completed NPI:[id number] 00:00:00 1 HPV 2010-04-10 Completed NPI:[id number] 00:00:00 1 Influenza Virus 2010-04-10 Completed NPI:[id number] 1878 Vaccine 00:00:00 1 Influenza Virus 2010-04-10 Completed NPI:[id number] 1878 Vaccine (3+ yrs) 00:00:00 1 HEPATITIS A 2010-04-10 Completed NPI:[id number] 00:00:00 1 HPV 2010-04-10 Completed NPI:[id number] 00:00:00 1 Influenza Virus 2010-04-10 Completed NPI:[id number] 1878 Vaccine 00:00:00 1 Influenza Virus 2010-04-10 Completed NPI:[id number] 1878 Vaccine (3+ yrs) 00:00:00 1 HEPATITIS A 2010-04-10 Completed NPI:[id number] 00:00:00 1 HPV 2010-04-10 Completed NPI:[id number] 00:00:00 1 Influenza Virus 2010-04-10 Completed NPI:[id number] 1878 Vaccine 00:00:00 1 Influenza Virus 2010-04-10 Completed NPI:[id number] 1878 Vaccine (3+ yrs) 00:00:00 1 HEPATITIS A 2010-04-10 Completed NPI:[id number] 00:00:00 1 HPV 2010-04-10 Completed NPI:[id number] 00:00:00 1 Influenza Virus 2010-04-10 Completed NPI:[id number] 1878 Vaccine 00:00:00 1 Influenza Virus 2010-04-10 Completed NPI:[id number] 1878 Vaccine (3+ yrs) 00:00:00 1 HEPATITIS A 2010-04-10 Completed NPI:[id number] 00:00:00 1 HPV 2010-04-10 Completed NPI:[id number] 00:00:00 1 Influenza Virus 2010-04-10 Completed NPI:[id number] Vaccine 00:00:00 1 Influenza Virus 2010-04-10 Completed NPI:[id number] Vaccine (3+ yrs) 00:00:00 1 HEPATITIS A 2010-04-10 Completed NPI:[id number] 00:00:00 1 HPV 2010-04-10 Completed NPI:[id number] 00:00:00 1 Influenza Virus 2010-04-10 Completed NPI:[id number] Vaccine 00:00:00 1 Influenza Virus 2010-04-10 Completed NPI:[id number] Vaccine (3+ yrs) 00:00:00 1 HEPATITIS A 2010-04-10 Completed NPI:[id number] 00:00:00 1 HPV 2010-04-10 Completed NPI:[id number] 00:00:00 1 Influenza Virus 2010-04-10 Completed NPI:[id number] Vaccine 00:00:00 1 Influenza Virus 2010-04-10 Completed NPI:[id number] Vaccine (3+ yrs) 00:00:00 1 HEPATITIS A 2010-04-10 Completed NPI:[id number] 00:00:00 1 HPV 2010-04-10 Completed NPI:[id number] 00:00:00 1 Influenza Virus 2010-04-10 Completed NPI:[id number] 1878 Vaccine 00:00:00 1 HPV 2008-10-10 Completed NPI:[id number] 00:00:00 1 HEPATITIS A 2008-10-10 Completed NPI:[id number] 00:00:00 1 HPV 2008-10-10 Completed NPI:[id number] 00:00:00 1 HEPATITIS A 2008-10-10 Completed NPI:[id number] 00:00:00 1 HPV 2008-10-10 Completed NPI:[id number] 00:00:00 1 HEPATITIS A 2008-10-10 Completed NPI:[id number] 00:00:00 1 HPV 2008-10-10 Completed NPI:[id number] 00:00:00 1 HEPATITIS A 2008-10-10 Completed NPI:[id number] 00:00:00 1 HPV 2008-10-10 Completed NPI:[id number] 00:00:00 1 HEPATITIS A 2008-10-10 Completed NPI:[id number] 00:00:00 1 HPV 2008-10-10 Completed NPI:[id number] 00:00:00 1 HEPATITIS A 2008-10-10 Completed NPI:[id number] 00:00:00 1 HPV 2008-10-10 Completed NPI:[id number] 00:00:00 1 HEPATITIS A 2008-10-10 Completed NPI:[id number] 00:00:00 1 HPV 2008-10-10 Completed NPI:[id number] 00:00:00 1 HEPATITIS A 2008-10-10 Completed NPI:[id number] 00:00:00 1 HPV 2008-10-10 Completed NPI:[id number] 00:00:00 1 HEPATITIS A 2008-10-10 Completed NPI:[id number] 00:00:00 1 HPV 2008-10-10 Completed NPI:[id number] 00:00:00 1 HEPATITIS A 2008-10-10 Completed NPI:[id number] 00:00:00 1 HPV 2008-10-10 Completed NPI:[id number] 00:00:00 1 HEPATITIS A 2008-10-10 Completed NPI:[id number] 00:00:00 1 HPV 2008-10-10 Completed NPI:[id number] 00:00:00 1 HEPATITIS A 2008-10-10 Completed NPI:[id number] 00:00:00 1 HPV 2008-10-10 Completed NPI:[id number] 00:00:00 1 HEPATITIS A 2008-10-10 Completed NPI:[id number] 00:00:00 1 HPV 2008-10-10 Completed NPI:[id number] 00:00:00 1 HEPATITIS A 2008-10-10 Completed NPI:[id number] 00:00:00 1 HPV 2008-10-10 Completed NPI:[id number] 00:00:00 1 HEPATITIS A 2008-10-10 Completed NPI:[id number] 00:00:00 1 HPV 2008-10-10 Completed NPI:[id number] 00:00:00 1 HEPATITIS A 2008-10-10 Completed NPI:[id number] 00:00:00 1 HPV 2008-10-10 Completed NPI:[id number] 00:00:00 1 HEPATITIS A 2008-10-10 Completed NPI:[id number] 00:00:00 1 HPV 2008-10-10 Completed NPI:[id number] 00:00:00 1 HEPATITIS A 2008-10-10 Completed NPI:[id number] 00:00:00 1 HPV 2008-10-10 Completed NPI:[id number] 00:00:00 1 HEPATITIS A 2008-10-10 Completed NPI:[id number] 00:00:00 1 HPV 2008-10-10 Completed NPI:[id number] 00:00:00 1 HEPATITIS A 2008-10-10 Completed NPI:[id number] 00:00:00 1 HPV 2008-10-10 Completed NPI:[id number] 00:00:00 1 HEPATITIS A 2008-10-10 Completed NPI:[id number] 00:00:00 1 HPV 2008-10-10 Completed NPI:[id number] 00:00:00 1 HEPATITIS A 2008-10-10 Completed NPI:[id number] 00:00:00 1 HPV 2008-10-10 Completed NPI:[id number] 00:00:00 1 HEPATITIS A 2008-10-10 Completed NPI:[id number] 00:00:00 1 HPV 2008-10-10 Completed NPI:[id number] 00:00:00 1 HEPATITIS A 2008-10-10 Completed NPI:[id number] 00:00:00 1 HPV 2008-10-10 Completed NPI:[id number] 00:00:00 1 HEPATITIS A 2008-10-10 Completed NPI:[id number] 00:00:00 1 HPV 2008-10-10 Completed NPI:[id number] 00:00:00 1 HEPATITIS A 2008-10-10 Completed NPI:[id number] 00:00:00 1 HPV 2008-10-10 Completed NPI:[id number] 00:00:00 1 HEPATITIS A 2008-10-10 Completed NPI:[id number] 00:00:00 1 HPV 2008-10-10 Completed NPI:[id number] 00:00:00 1 HEPATITIS A 2008-10-10 Completed NPI:[id number] 00:00:00 1 HPV 2008-10-10 Completed NPI:[id number] 00:00:00 1 HEPATITIS A 2008-10-10 Completed NPI:[id number] 00:00:00 1 HPV 2008-10-10 Completed NPI:[id number] 00:00:00 1 HEPATITIS A 2008-10-10 Completed NPI:[id number] 00:00:00 1 HPV 2008-10-10 Completed NPI:[id number] 00:00:00 1 HEPATITIS A 2008-10-10 Completed NPI:[id number] 00:00:00 1 HPV 2008-10-10 Completed NPI:[id number] 00:00:00 1 HEPATITIS A 2008-10-10 Completed NPI:[id number] 00:00:00 1 HPV 2008-10-10 Completed NPI:[id number] 00:00:00 1 HEPATITIS A 2008-10-10 Completed NPI:[id number] 00:00:00 1 HPV 2008-10-10 Completed NPI:[id number] 00:00:00 1 HEPATITIS A 2008-10-10 Completed NPI:[id number] 00:00:00 1 HPV 2008-10-10 Completed NPI:[id number] 00:00:00 1 HEPATITIS A 2008-10-10 Completed NPI:[id number] 00:00:00 1 HPV 2008-10-10 Completed NPI:[id number] 00:00:00 1 HEPATITIS A 2008-10-10 Completed NPI:[id number] 00:00:00 1 HPV 2008-10-10 Completed NPI:[id number] 00:00:00 1 HEPATITIS A 2008-10-10 Completed NPI:[id number] 00:00:00 1 HPV 2008-10-10 Completed NPI:[id number] 00:00:00 1 HEPATITIS A 2008-10-10 Completed NPI:[id number] 00:00:00 1 HPV 2008-10-10 Completed NPI:[id number] 00:00:00 1 HEPATITIS A 2008-10-10 Completed NPI:[id number] 00:00:00 1 HPV 2008-10-10 Completed NPI:[id number] 00:00:00 1 HEPATITIS A 2008-10-10 Completed NPI:[id number] 00:00:00 1 HPV 2008-10-10 Completed NPI:[id number] 00:00:00 1 HEPATITIS A 2008-10-10 Completed NPI:[id number] 00:00:00 1 HPV 2008-10-10 Completed NPI:[id number] 00:00:00 1 HEPATITIS A 2008-10-10 Completed NPI:[id number] 00:00:00 1 HPV 2008-10-10 Completed NPI:[id number] 00:00:00 1 HEPATITIS A 2008-10-10 Completed NPI:[id number] 00:00:00 1 HPV 2008-10-10 Completed NPI:[id number] 00:00:00 1 HEPATITIS A 2008-10-10 Completed NPI:[id number] 00:00:00 1 HPV 2008-10-10 Completed NPI:[id number] 00:00:00 1 HEPATITIS A 2008-10-10 Completed NPI:[id number] 00:00:00 1 HPV 2008-10-10 Completed NPI:[id number] 00:00:00 1 HEPATITIS A 2008-10-10 Completed NPI:[id number] 00:00:00 1 HPV 2008-10-10 Completed NPI:[id number] 00:00:00 1 HEPATITIS A 2008-10-10 Completed NPI:[id number] 00:00:00 1 HPV 2008-10-10 Completed NPI:[id number] 00:00:00 1 HEPATITIS A 2008-10-10 Completed NPI:[id number] 00:00:00 1 HPV 2008-10-10 Completed NPI:[id number] 00:00:00 1 HEPATITIS A 2008-10-10 Completed NPI:[id number] 00:00:00 1 HPV 2007-11-29 Completed NPI:[id number] 00:00:00 1 HPV 2007-11-29 Completed NPI:[id number] 00:00:00 1 HPV 2007-11-29 Completed NPI:[id number] 00:00:00 1 HPV 2007-11-29 Completed NPI:[id number] 00:00:00 1 HPV 2007-11-29 Completed NPI:[id number] 00:00:00 1 HPV 2007-11-29 Completed NPI:[id number] 00:00:00 1 HPV 2007-11-29 Completed NPI:[id number] 00:00:00 1 HPV 2007-11-29 Completed NPI:[id number] 00:00:00 1 HPV 2007-11-29 Completed NPI:[id number] 00:00:00 1 HPV 2007-11-29 Completed NPI:[id number] 00:00:00 1 HPV 2007-11-29 Completed NPI:[id number] 00:00:00 1 HPV 2007-11-29 Completed NPI:[id number] 00:00:00 1 HPV 2007-11-29 Completed NPI:[id number] 00:00:00 1 HPV 2007-11-29 Completed NPI:[id number] 00:00:00 1 HPV 2007-11-29 Completed NPI:[id number] 00:00:00 1 HPV 2007-11-29 Completed NPI:[id number] 00:00:00 1 HPV 2007-11-29 Completed NPI:[id number] 00:00:00 1 HPV 2007-11-29 Completed NPI:[id number] 00:00:00 1 HPV 2007-11-29 Completed NPI:[id number] 00:00:00 1 HPV 2007-11-29 Completed NPI:[id number] 00:00:00 1 HPV 2007-11-29 Completed NPI:[id number] 00:00:00 1 HPV 2007-11-29 Completed NPI:[id number] 00:00:00 1 HPV 2007-11-29 Completed NPI:[id number] 00:00:00 1 HPV 2007-11-29 Completed NPI:[id number] 00:00:00 1 HPV 2007-11-29 Completed NPI:[id number] 00:00:00 1 HPV 2007-11-29 Completed NPI:[id number] 00:00:00 1 HPV 2007-11-29 Completed NPI:[id number] 00:00:00 1 HPV 2007-11-29 Completed NPI:[id number] 00:00:00 1 HPV 2007-11-29 Completed NPI:[id number] 00:00:00 1 HPV 2007-11-29 Completed NPI:[id number] 00:00:00 1 HPV 2007-11-29 Completed NPI:[id number] 00:00:00 1 HPV 2007-11-29 Completed NPI:[id number] 00:00:00 1 HPV 2007-11-29 Completed NPI:[id number] 00:00:00 1 HPV 2007-11-29 Completed NPI:[id number] 00:00:00 1 HPV 2007-11-29 Completed NPI:[id number] 00:00:00 1 HPV 2007-11-29 Completed NPI:[id number] 00:00:00 1 HPV 2007-11-29 Completed NPI:[id number] 00:00:00 1 HPV 2007-11-29 Completed NPI:[id number] 00:00:00 1 HPV 2007-11-29 Completed NPI:[id number] 00:00:00 1 HPV 2007-11-29 Completed NPI:[id number] 00:00:00 1 HPV 2007-11-29 Completed NPI:[id number] 00:00:00 1 HPV 2007-11-29 Completed NPI:[id number] 00:00:00 1 HPV 2007-11-29 Completed NPI:[id number] 00:00:00 1 HPV 2007-11-29 Completed NPI:[id number] 00:00:00 1 HPV 2007-11-29 Completed NPI:[id number] 00:00:00 1 HPV 2007-11-29 Completed NPI:[id number] 00:00:00 1 HPV 2007-11-29 Completed NPI:[id number] 00:00:00 1 HPV 2007-11-29 Completed NPI:[id number] 00:00:00 1 HPV 2007-11-29 Completed NPI:[id number] 00:00:00 1 TDAP 2007-05-23 Completed NPI:[id number] 00:00:00 1 HEPATITIS A 2007-05-23 Completed NPI:[id number] 00:00:00 1 HPV 2007-05-23 Completed NPI:[id number] 00:00:00 1 Meningococcal 2007-05-23 Completed NPI:[id number] Polysaccharide (groups 00:00:00 1 A, C, Y and W-135) conjugate vaccine (MCV4P) TDAP 2007-05-23 Completed NPI:[id number] 00:00:00 1 HEPATITIS A 2007-05-23 Completed NPI:[id number] 00:00:00 1 HPV 2007-05-23 Completed NPI:[id number] 00:00:00 1 HEPATITIS A 2007-05-23 Completed NPI:[id number] 00:00:00 1 Meningococcal 2007-05-23 Completed NPI:[id number] Polysaccharide (groups 00:00:00 1 A, C, Y and W-135) conjugate vaccine (MCV4P) TDAP 2007-05-23 Completed NPI:[id number] 00:00:00 1 HEPATITIS A 2007-05-23 Completed NPI:[id number] 00:00:00 1 HPV 2007-05-23 Completed NPI:[id number] 00:00:00 1 Meningococcal 2007-05-23 Completed NPI:[id number] Polysaccharide (groups 00:00:00 1 A, C, Y and W-135) conjugate vaccine (MCV4P) TDAP 2007-05-23 Completed NPI:[id number] 00:00:00 1 HPV 2007-05-23 Completed NPI:[id number] 00:00:00 1 HEPATITIS A 2007-05-23 Completed NPI:[id number] 00:00:00 1 HPV 2007-05-23 Completed NPI:[id number] 00:00:00 1 Meningococcal 2007-05-23 Completed NPI:[id number] Polysaccharide (groups 00:00:00 1 A, C, Y and W-135) conjugate vaccine (MCV4P) TDAP 2007-05-23 Completed NPI:[id number] 00:00:00 1 Meningococcal 2007-05-23 Completed NPI:[id number] Polysaccharide (groups 00:00:00 1 A, C, Y and W-135) conjugate vaccine (MCV4P) HEPATITIS A 2007-05-23 Completed NPI:[id number] 00:00:00 1 HPV 2007-05-23 Completed NPI:[id number] 00:00:00 1 Meningococcal 2007-05-23 Completed NPI:[id number] Polysaccharide (groups 00:00:00 1 A, C, Y and W-135) conjugate vaccine (MCV4P) TDAP 2007-05-23 Completed NPI:[id number] 00:00:00 1 Tdap 2007-05-23 Completed NPI:[id number] 00:00:00 1 HEPATITIS A 2007-05-23 Completed NPI:[id number] 00:00:00 1 HPV 2007-05-23 Completed NPI:[id number] 00:00:00 1 Meningococcal 2007-05-23 Completed NPI:[id number] Polysaccharide (groups 00:00:00 1 A, C, Y and W-135) conjugate vaccine (MCV4P) TDAP 2007-05-23 Completed NPI:[id number] 00:00:00 1 HEPATITIS A 2007-05-23 Completed NPI:[id number] 00:00:00 1 HPV 2007-05-23 Completed NPI:[id number] 00:00:00 1 Meningococcal 2007-05-23 Completed NPI:[id number] Polysaccharide (groups 00:00:00 1 A, C, Y and W-135) conjugate vaccine (MCV4P) TDAP 2007-05-23 Completed NPI:[id number] 00:00:00 1 HEPATITIS A 2007-05-23 Completed NPI:[id number] 00:00:00 1 HPV 2007-05-23 Completed NPI:[id number] 00:00:00 1 Meningococcal 2007-05-23 Completed NPI:[id number] Polysaccharide (groups 00:00:00 1 A, C, Y and W-135) conjugate vaccine (MCV4P) TDAP 2007-05-23 Completed NPI:[id number] 00:00:00 1 HEPATITIS A 2007-05-23 Completed NPI:[id number] 00:00:00 1 HPV 2007-05-23 Completed NPI:[id number] 00:00:00 1 Meningococcal 2007-05-23 Completed NPI:[id number] Polysaccharide (groups 00:00:00 1 A, C, Y and W-135) conjugate vaccine (MCV4P) TDAP 2007-05-23 Completed NPI:[id number] 00:00:00 1 HEPATITIS A 2007-05-23 Completed NPI:[id number] 00:00:00 1 HPV 2007-05-23 Completed NPI:[id number] 00:00:00 1 Meningococcal 2007-05-23 Completed NPI:[id number] Polysaccharide (groups 00:00:00 1 A, C, Y and W-135) conjugate vaccine (MCV4P) TDAP 2007-05-23 Completed NPI:[id number] 00:00:00 1 HEPATITIS A 2007-05-23 Completed NPI:[id number] 00:00:00 1 HEPATITIS A 2007-05-23 Completed NPI:[id number] 00:00:00 1 HPV 2007-05-23 Completed NPI:[id number] 00:00:00 1 Meningococcal 2007-05-23 Completed NPI:[id number] Polysaccharide (groups 00:00:00 1 A, C, Y and W-135) conjugate vaccine (MCV4P) TDAP 2007-05-23 Completed NPI:[id number] 00:00:00 1 HEPATITIS A 2007-05-23 Completed NPI:[id number] 00:00:00 1 HPV 2007-05-23 Completed NPI:[id number] 00:00:00 1 Meningococcal 2007-05-23 Completed NPI:[id number] 78 Polysaccharide (groups 00:00:00 1 A, C, Y and W-135) conjugate vaccine (MCV4P) TDAP 2007-05-23 Completed NPI:[id number] 00:00:00 1 HPV 2007-05-23 Completed NPI:[id number] 00:00:00 1 HEPATITIS A 2007-05-23 Completed NPI:[id number] 00:00:00 1 Meningococcal 2007-05-23 Completed NPI:[id number] Polysaccharide (groups 00:00:00 1 A, C, Y and W-135) conjugate vaccine (MCV4P) HPV 2007-05-23 Completed NPI:[id number] 00:00:00 1 Meningococcal 2007-05-23 Completed NPI:[id number] 78 Polysaccharide (groups 00:00:00 1 A, C, Y and W-135) conjugate vaccine (MCV4P) TDAP 2007-05-23 Completed NPI:[id number] 00:00:00 1 HEPATITIS A 2007-05-23 Completed NPI:[id number] 00:00:00 1 Tdap 2007-05-23 Completed NPI:[id number] 00:00:00 1 HPV 2007-05-23 Completed NPI:[id number] 00:00:00 1 Meningococcal 2007-05-23 Completed NPI:[id number] 78 Polysaccharide (groups 00:00:00 1 A, C, Y and W-135) conjugate vaccine (MCV4P) TDAP 2007-05-23 Completed NPI:[id number] 00:00:00 1 HEPATITIS A 2007-05-23 Completed NPI:[id number] 00:00:00 1 HPV 2007-05-23 Completed NPI:[id number] 00:00:00 1 Meningococcal 2007-05-23 Completed NPI:[id number] 78 Polysaccharide (groups 00:00:00 1 A, C, Y and W-135) conjugate vaccine (MCV4P) TDAP 2007-05-23 Completed NPI:[id number] 00:00:00 1 HEPATITIS A 2007-05-23 Completed NPI:[id number] 00:00:00 1 HPV 2007-05-23 Completed NPI:[id number] 00:00:00 1 Meningococcal 2007-05-23 Completed NPI:[id number] 78 Polysaccharide (groups 00:00:00 1 A, C, Y and W-135) conjugate vaccine (MCV4P) TDAP 2007-05-23 Completed NPI:[id number] 00:00:00 1 HEPATITIS A 2007-05-23 Completed NPI:[id number] 00:00:00 1 HPV 2007-05-23 Completed NPI:[id number] 00:00:00 1 Meningococcal 2007-05-23 Completed NPI:[id number] Polysaccharide (groups 00:00:00 1 A, C, Y and W-135) conjugate vaccine (MCV4P) TDAP 2007-05-23 Completed NPI:[id number] 00:00:00 1 HEPATITIS A 2007-05-23 Completed NPI:[id number] 00:00:00 1 HEPATITIS A 2007-05-23 Completed NPI:[id number] 00:00:00 1 HPV 2007-05-23 Completed NPI:[id number] 00:00:00 1 Meningococcal 2007-05-23 Completed NPI:[id number] 78 Polysaccharide (groups 00:00:00 1 A, C, Y and W-135) conjugate vaccine (MCV4P) TDAP 2007-05-23 Completed NPI:[id number] 00:00:00 1 HPV 2007-05-23 Completed NPI:[id number] 00:00:00 1 Meningococcal 2007-05-23 Completed NPI:[id number] 78 Polysaccharide (groups 00:00:00 1 A, C, Y and W-135) conjugate vaccine (MCV4P) HEPATITIS A 2007-05-23 Completed NPI:[id number] 00:00:00 1 HPV 2007-05-23 Completed NPI:[id number] 00:00:00 1 Meningococcal 2007-05-23 Completed NPI:[id number] 78 Polysaccharide (groups 00:00:00 1 A, C, Y and W-135) conjugate vaccine (MCV4P) TDAP 2007-05-23 Completed NPI:[id number] 00:00:00 1 Tdap 2007-05-23 Completed NPI:[id number] 00:00:00 1 HEPATITIS A 2007-05-23 Completed NPI:[id number] 00:00:00 1 HPV 2007-05-23 Completed NPI:[id number] 00:00:00 1 Meningococcal 2007-05-23 Completed NPI:[id number] 78 Polysaccharide (groups 00:00:00 1 A, C, Y and W-135) conjugate vaccine (MCV4P) TDAP 2007-05-23 Completed NPI:[id number] 00:00:00 1 HEPATITIS A 2007-05-23 Completed NPI:[id number] 00:00:00 1 HPV 2007-05-23 Completed NPI:[id number] 00:00:00 1 Meningococcal 2007-05-23 Completed NPI:[id number] 78 Polysaccharide (groups 00:00:00 1 A, C, Y and W-135) conjugate vaccine (MCV4P) TDAP 2007-05-23 Completed NPI:[id number] 00:00:00 1 HEPATITIS A 2007-05-23 Completed NPI:[id number] 00:00:00 1 HPV 2007-05-23 Completed NPI:[id number] 00:00:00 1 Meningococcal 2007-05-23 Completed NPI:[id number] 78 Polysaccharide (groups 00:00:00 1 A, C, Y and W-135) conjugate vaccine (MCV4P) TDAP 2007-05-23 Completed NPI:[id number] 00:00:00 1 HEPATITIS A 2007-05-23 Completed NPI:[id number] 00:00:00 1 HPV 2007-05-23 Completed NPI:[id number] 00:00:00 1 Meningococcal 2007-05-23 Completed NPI:[id number] 78 Polysaccharide (groups 00:00:00 1 A, C, Y and W-135) conjugate vaccine (MCV4P) TDAP 2007-05-23 Completed NPI:[id number] 00:00:00 1 HEPATITIS A 2007-05-23 Completed NPI:[id number] 00:00:00 1 HPV 2007-05-23 Completed NPI:[id number] 00:00:00 1 Meningococcal 2007-05-23 Completed NPI:[id number] 78 Polysaccharide (groups 00:00:00 1 A, C, Y and W-135) conjugate vaccine (MCV4P) TDAP 2007-05-23 Completed NPI:[id number] 00:00:00 1 HEPATITIS A 2007-05-23 Completed NPI:[id number] 00:00:00 1 HEPATITIS A 2007-05-23 Completed NPI:[id number] 00:00:00 1 HPV 2007-05-23 Completed NPI:[id number] 00:00:00 1 Meningococcal 2007-05-23 Completed NPI:[id number] 78 Polysaccharide (groups 00:00:00 1 A, C, Y and W-135) conjugate vaccine (MCV4P) TDAP 2007-05-23 Completed NPI:[id number] 00:00:00 1 HEPATITIS A 2007-05-23 Completed NPI:[id number] 00:00:00 1 HPV 2007-05-23 Completed NPI:[id number] 00:00:00 1 HPV 2007-05-23 Completed NPI:[id number] 00:00:00 1 Meningococcal 2007-05-23 Completed NPI:[id number] 78 Polysaccharide (groups 00:00:00 1 A, C, Y and W-135) conjugate vaccine (MCV4P) TDAP 2007-05-23 Completed NPI:[id number] 00:00:00 1 Meningococcal 2007-05-23 Completed NPI:[id number] 78 Polysaccharide (groups 00:00:00 1 A, C, Y and W-135) conjugate vaccine (MCV4P) HEPATITIS A 2007-05-23 Completed NPI:[id number] 00:00:00 1 HPV 2007-05-23 Completed NPI:[id number] 00:00:00 1 Meningococcal 2007-05-23 Completed NPI:[id number] 78 Polysaccharide (groups 00:00:00 1 A, C, Y and W-135) conjugate vaccine (MCV4P) TDAP 2007-05-23 Completed NPI:[id number] 00:00:00 1 HEPATITIS A 2007-05-23 Completed NPI:[id number] 00:00:00 1 Tdap 2007-05-23 Completed NPI:[id number] 00:00:00 1 HPV 2007-05-23 Completed NPI:[id number] 00:00:00 1 Meningococcal 2007-05-23 Completed NPI:[id number] 78 Polysaccharide (groups 00:00:00 1 A, C, Y and W-135) conjugate vaccine (MCV4P) TDAP 2007-05-23 Completed NPI:[id number] 00:00:00 1 HEPATITIS A 2007-05-23 Completed NPI:[id number] 00:00:00 1 HPV 2007-05-23 Completed NPI:[id number] 00:00:00 1 Meningococcal 2007-05-23 Completed NPI:[id number] 78 Polysaccharide (groups 00:00:00 1 A, C, Y and W-135) conjugate vaccine (MCV4P) TDAP 2007-05-23 Completed NPI:[id number] 00:00:00 1 HEPATITIS A 2007-05-23 Completed NPI:[id number] 00:00:00 1 HPV 2007-05-23 Completed NPI:[id number] 00:00:00 1 Meningococcal 2007-05-23 Completed NPI:[id number] 78 Polysaccharide (groups 00:00:00 1 A, C, Y and W-135) conjugate vaccine (MCV4P) TDAP 2007-05-23 Completed NPI:[id number] 00:00:00 1 HEPATITIS A 2007-05-23 Completed NPI:[id number] 00:00:00 1 HPV 2007-05-23 Completed NPI:[id number] 00:00:00 1 Meningococcal 2007-05-23 Completed NPI:[id number] 78 Polysaccharide (groups 00:00:00 1 A, C, Y and W-135) conjugate vaccine (MCV4P) TDAP 2007-05-23 Completed NPI:[id number] 00:00:00 1 HEPATITIS A 2007-05-23 Completed NPI:[id number] 00:00:00 1 HPV 2007-05-23 Completed NPI:[id number] 00:00:00 1 Meningococcal 2007-05-23 Completed NPI:[id number] 78 Polysaccharide (groups 00:00:00 1 A, C, Y and W-135) conjugate vaccine (MCV4P) Tdap 2007-05-23 Completed NPI:[id number] 00:00:00 1 HEPATITIS A 2007-05-23 Completed NPI:[id number] 00:00:00 1 HPV 2007-05-23 Completed NPI:[id number] 00:00:00 1 Meningococcal 2007-05-23 Completed NPI:[id number] 78 Polysaccharide (groups 00:00:00 1 A, C, Y and W-135) conjugate vaccine (MCV4P) Tdap 2007-05-23 Completed NPI:[id number] 00:00:00 1 HEPATITIS A 2007-05-23 Completed NPI:[id number] 00:00:00 1 HPV 2007-05-23 Completed NPI:[id number] 00:00:00 1 Meningococcal 2007-05-23 Completed NPI:[id number] 78 Polysaccharide (groups 00:00:00 1 A, C, Y and W-135) conjugate vaccine (MCV4P) Tdap 2007-05-23 Completed NPI:[id number] 00:00:00 1 HEPATITIS A 2007-05-23 Completed NPI:[id number] 00:00:00 1 HPV 2007-05-23 Completed NPI:[id number] 00:00:00 1 Meningococcal 2007-05-23 Completed NPI:[id number] 78 Polysaccharide (groups 00:00:00 1 A, C, Y and W-135) conjugate vaccine (MCV4P) Tdap 2007-05-23 Completed NPI:[id number] 00:00:00 1 HEPATITIS A 2007-05-23 Completed NPI:[id number] 00:00:00 1 HPV 2007-05-23 Completed NPI:[id number] 00:00:00 1 Meningococcal 2007-05-23 Completed NPI:[id number] Polysaccharide (groups 00:00:00 1 A, C, Y and W-135) conjugate vaccine (MCV4P) Tdap 2007-05-23 Completed NPI:[id number] 00:00:00 1 HEPATITIS A 2007-05-23 Completed NPI:[id number] 00:00:00 1 HPV 2007-05-23 Completed NPI:[id number] 00:00:00 1 Meningococcal 2007-05-23 Completed NPI:[id number] Polysaccharide (groups 00:00:00 1 A, C, Y and W-135) conjugate vaccine (MCV4P) Tdap 2007-05-23 Completed NPI:[id number] 00:00:00 1 HEPATITIS A 2007-05-23 Completed NPI:[id number] 00:00:00 1 HPV 2007-05-23 Completed NPI:[id number] 00:00:00 1 Meningococcal 2007-05-23 Completed NPI:[id number] Polysaccharide (groups 00:00:00 1 A, C, Y and W-135) conjugate vaccine (MCV4P) Tdap 2007-05-23 Completed NPI:[id number] 00:00:00 1 HEPATITIS A 2007-05-23 Completed NPI:[id number] 00:00:00 1 HPV 2007-05-23 Completed NPI:[id number] 00:00:00 1 Meningococcal 2007-05-23 Completed NPI:[id number] Polysaccharide (groups 00:00:00 1 A, C, Y and W-135) conjugate vaccine (MCV4P) Tdap 2007-05-23 Completed NPI:[id number] 00:00:00 1 HEPATITIS A 2007-05-23 Completed NPI:[id number] 00:00:00 1 HPV 2007-05-23 Completed NPI:[id number] 00:00:00 1 Meningococcal 2007-05-23 Completed NPI:[id number] Polysaccharide (groups 00:00:00 1 A, C, Y and W-135) conjugate vaccine (MCV4P) Tdap 2007-05-23 Completed NPI:[id number] 00:00:00 1 HEPATITIS A 2007-05-23 Completed NPI:[id number] 00:00:00 1 HPV 2007-05-23 Completed NPI:[id number] 00:00:00 1 Meningococcal 2007-05-23 Completed NPI:[id number] Polysaccharide (groups 00:00:00 1 A, C, Y and W-135) conjugate vaccine (MCV4P) TDAP 2007-05-23 Completed NPI:[id number] 00:00:00 1 HEPATITIS A 2007-05-23 Completed NPI:[id number] 00:00:00 1 HPV 2007-05-23 Completed NPI:[id number] 00:00:00 1 Meningococcal 2007-05-23 Completed NPI:[id number] Polysaccharide (groups 00:00:00 1 A, C, Y and W-135) conjugate vaccine (MCV4P) TDAP 2007-05-23 Completed NPI:[id number] 00:00:00 1 HEPATITIS A 2007-05-23 Completed NPI:[id number] 00:00:00 1 HPV 2007-05-23 Completed NPI:[id number] 00:00:00 1 Meningococcal 2007-05-23 Completed NPI:[id number] Polysaccharide (groups 00:00:00 1 A, C, Y and W-135) conjugate vaccine (MCV4P) TDAP 2007-05-23 Completed NPI:[id number] 00:00:00 1 HEPATITIS A 2007-05-23 Completed NPI:[id number] 00:00:00 1 HPV 2007-05-23 Completed NPI:[id number] 00:00:00 1 Meningococcal 2007-05-23 Completed NPI:[id number] Polysaccharide (groups 00:00:00 1 A, C, Y and W-135) conjugate vaccine (MCV4P) TDAP 2007-05-23 Completed NPI:[id number] 00:00:00 1 HEPATITIS A 2007-05-23 Completed NPI:[id number] 00:00:00 1 HPV 2007-05-23 Completed NPI:[id number] 00:00:00 1 Meningococcal 2007-05-23 Completed NPI:[id number] Polysaccharide (groups 00:00:00 1 A, C, Y and W-135) conjugate vaccine (MCV4P) DTAP 1997-04-25 Completed NPI:[id number] 00:00:00 1 DTAP 1997-04-25 Completed NPI:[id number] 00:00:00 1 IPV 1997-04-25 Completed NPI:[id number] 00:00:00 1 MMR 1997-04-25 Completed NPI:[id number] 00:00:00 1 DTAP 1997-04-25 Completed NPI:[id number] 00:00:00 1 IPV 1997-04-25 Completed NPI:[id number] 00:00:00 1 MMR 1997-04-25 Completed NPI:[id number] 00:00:00 1 DTAP 1997-04-25 Completed NPI:[id number] 00:00:00 1 IPV 1997-04-25 Completed NPI:[id number] 00:00:00 1 MMR 1997-04-25 Completed NPI:[id number] 00:00:00 1 DTAP 1997-04-25 Completed NPI:[id number] 00:00:00 1 IPV 1997-04-25 Completed NPI:[id number] 00:00:00 1 MMR 1997-04-25 Completed NPI:[id number] 00:00:00 1 IPV 1997-04-25 Completed NPI:[id number] 00:00:00 1 DTAP 1997-04-25 Completed NPI:[id number] 00:00:00 1 MMR 1997-04-25 Completed NPI:[id number] 00:00:00 1 IPV 1997-04-25 Completed NPI:[id number] 00:00:00 1 MMR 1997-04-25 Completed NPI:[id number] 00:00:00 1 DTAP 1997-04-25 Completed NPI:[id number] 00:00:00 1 IPV 1997-04-25 Completed NPI:[id number] 00:00:00 1 MMR 1997-04-25 Completed NPI:[id number] 00:00:00 1 DTAP 1997-04-25 Completed NPI:[id number] 00:00:00 1 IPV 1997-04-25 Completed NPI:[id number] 00:00:00 1 MMR 1997-04-25 Completed NPI:[id number] 00:00:00 1 DTAP 1997-04-25 Completed NPI:[id number] 00:00:00 1 IPV 1997-04-25 Completed NPI:[id number] 00:00:00 1 MMR 1997-04-25 Completed NPI:[id number] 00:00:00 1 DTAP 1997-04-25 Completed NPI:[id number] 00:00:00 1 IPV 1997-04-25 Completed NPI:[id number] 00:00:00 1 MMR 1997-04-25 Completed NPI:[id number] 00:00:00 1 DTAP 1997-04-25 Completed NPI:[id number] 00:00:00 1 DTAP 1997-04-25 Completed NPI:[id number] 00:00:00 1 IPV 1997-04-25 Completed NPI:[id number] 00:00:00 1 MMR 1997-04-25 Completed NPI:[id number] 00:00:00 1 DTAP 1997-04-25 Completed NPI:[id number] 00:00:00 1 IPV 1997-04-25 Completed NPI:[id number] 00:00:00 1 MMR 1997-04-25 Completed NPI:[id number] 00:00:00 1 DTAP 1997-04-25 Completed NPI:[id number] 00:00:00 1 IPV 1997-04-25 Completed NPI:[id number] 00:00:00 1 MMR 1997-04-25 Completed NPI:[id number] 00:00:00 1 IPV 1997-04-25 Completed NPI:[id number] 00:00:00 1 DTAP 1997-04-25 Completed NPI:[id number] 00:00:00 1 IPV 1997-04-25 Completed NPI:[id number] 00:00:00 1 MMR 1997-04-25 Completed NPI:[id number] 00:00:00 1 MMR 1997-04-25 Completed NPI:[id number] 00:00:00 1 DTAP 1997-04-25 Completed NPI:[id number] 00:00:00 1 IPV 1997-04-25 Completed NPI:[id number] 00:00:00 1 MMR 1997-04-25 Completed NPI:[id number] 00:00:00 1 DTAP 1997-04-25 Completed NPI:[id number] 00:00:00 1 IPV 1997-04-25 Completed NPI:[id number] 00:00:00 1 MMR 1997-04-25 Completed NPI:[id number] 00:00:00 1 DTAP 1997-04-25 Completed NPI:[id number] 00:00:00 1 IPV 1997-04-25 Completed NPI:[id number] 00:00:00 1 MMR 1997-04-25 Completed NPI:[id number] 00:00:00 1 DTAP 1997-04-25 Completed NPI:[id number] 00:00:00 1 IPV 1997-04-25 Completed NPI:[id number] 00:00:00 1 MMR 1997-04-25 Completed NPI:[id number] 00:00:00 1 DTAP 1997-04-25 Completed NPI:[id number] 00:00:00 1 DTAP 1997-04-25 Completed NPI:[id number] 00:00:00 1 IPV 1997-04-25 Completed NPI:[id number] 00:00:00 1 MMR 1997-04-25 Completed NPI:[id number] 00:00:00 1 IPV 1997-04-25 Completed NPI:[id number] 00:00:00 1 DTAP 1997-04-25 Completed NPI:[id number] 00:00:00 1 MMR 1997-04-25 Completed NPI:[id number] 00:00:00 1 IPV 1997-04-25 Completed NPI:[id number] 00:00:00 1 MMR 1997-04-25 Completed NPI:[id number] 00:00:00 1 DTAP 1997-04-25 Completed NPI:[id number] 00:00:00 1 IPV 1997-04-25 Completed NPI:[id number] 00:00:00 1 MMR 1997-04-25 Completed NPI:[id number] 00:00:00 1 DTAP 1997-04-25 Completed NPI:[id number] 00:00:00 1 IPV 1997-04-25 Completed NPI:[id number] 00:00:00 1 MMR 1997-04-25 Completed NPI:[id number] 00:00:00 1 DTAP 1997-04-25 Completed NPI:[id number] 00:00:00 1 IPV 1997-04-25 Completed NPI:[id number] 00:00:00 1 MMR 1997-04-25 Completed NPI:[id number] 00:00:00 1 DTAP 1997-04-25 Completed NPI:[id number] 00:00:00 1 IPV 1997-04-25 Completed NPI:[id number] 00:00:00 1 MMR 1997-04-25 Completed NPI:[id number] 00:00:00 1 DTAP 1997-04-25 Completed NPI:[id number] 00:00:00 1 DTAP 1997-04-25 Completed NPI:[id number] 00:00:00 1 IPV 1997-04-25 Completed NPI:[id number] 00:00:00 1 MMR 1997-04-25 Completed NPI:[id number] 00:00:00 1 DTAP 1997-04-25 Completed NPI:[id number] 00:00:00 1 IPV 1997-04-25 Completed NPI:[id number] 00:00:00 1 MMR 1997-04-25 Completed NPI:[id number] 00:00:00 1 DTAP 1997-04-25 Completed NPI:[id number] 00:00:00 1 IPV 1997-04-25 Completed NPI:[id number] 00:00:00 1 MMR 1997-04-25 Completed NPI:[id number] 00:00:00 1 IPV 1997-04-25 Completed NPI:[id number] 00:00:00 1 DTAP 1997-04-25 Completed NPI:[id number] 00:00:00 1 IPV 1997-04-25 Completed NPI:[id number] 00:00:00 1 MMR 1997-04-25 Completed NPI:[id number] 00:00:00 1 MMR 1997-04-25 Completed NPI:[id number] 00:00:00 1 DTAP 1997-04-25 Completed NPI:[id number] 00:00:00 1 IPV 1997-04-25 Completed NPI:[id number] 00:00:00 1 MMR 1997-04-25 Completed NPI:[id number] 00:00:00 1 DTAP 1997-04-25 Completed NPI:[id number] 00:00:00 1 IPV 1997-04-25 Completed NPI:[id number] 00:00:00 1 MMR 1997-04-25 Completed NPI:[id number] 00:00:00 1 DTAP 1997-04-25 Completed NPI:[id number] 00:00:00 1 IPV 1997-04-25 Completed NPI:[id number] 00:00:00 1 MMR 1997-04-25 Completed NPI:[id number] 00:00:00 1 DTAP 1997-04-25 Completed NPI:[id number] 00:00:00 1 IPV 1997-04-25 Completed NPI:[id number] 00:00:00 1 MMR 1997-04-25 Completed NPI:[id number] 00:00:00 1 DTAP 1997-04-25 Completed NPI:[id number] 00:00:00 1 IPV 1997-04-25 Completed NPI:[id number] 00:00:00 1 MMR 1997-04-25 Completed NPI:[id number] 00:00:00 1 DTAP 1997-04-25 Completed NPI:[id number] 00:00:00 1 IPV 1997-04-25 Completed NPI:[id number] 00:00:00 1 MMR 1997-04-25 Completed NPI:[id number] 00:00:00 1 DTAP 1997-04-25 Completed NPI:[id number] 00:00:00 1 IPV 1997-04-25 Completed NPI:[id number] 00:00:00 1 MMR 1997-04-25 Completed NPI:[id number] 00:00:00 1 DTAP 1997-04-25 Completed NPI:[id number] 00:00:00 1 IPV 1997-04-25 Completed NPI:[id number] 00:00:00 1 MMR 1997-04-25 Completed NPI:[id number] 00:00:00 1 DTAP 1997-04-25 Completed NPI:[id number] 00:00:00 1 IPV 1997-04-25 Completed NPI:[id number] 00:00:00 1 MMR 1997-04-25 Completed NPI:[id number] 00:00:00 1 DTAP 1997-04-25 Completed NPI:[id number] 00:00:00 1 IPV 1997-04-25 Completed NPI:[id number] 00:00:00 1 MMR 1997-04-25 Completed NPI:[id number] 00:00:00 1 DTAP 1997-04-25 Completed NPI:[id number] 00:00:00 1 IPV 1997-04-25 Completed NPI:[id number] 00:00:00 1 MMR 1997-04-25 Completed NPI:[id number] 00:00:00 1 DTAP 1997-04-25 Completed NPI:[id number] 00:00:00 1 IPV 1997-04-25 Completed NPI:[id number] 00:00:00 1 MMR 1997-04-25 Completed NPI:[id number] 00:00:00 1 DTAP 1997-04-25 Completed NPI:[id number] 00:00:00 1 IPV 1997-04-25 Completed NPI:[id number] 00:00:00 1 MMR 1997-04-25 Completed NPI:[id number] 00:00:00 1 DTAP 1997-04-25 Completed NPI:[id number] 00:00:00 1 IPV 1997-04-25 Completed NPI:[id number] 00:00:00 1 MMR 1997-04-25 Completed NPI:[id number] 00:00:00 1 DTAP 1997-04-25 Completed NPI:[id number] 00:00:00 1 IPV 1997-04-25 Completed NPI:[id number] 00:00:00 1 MMR 1997-04-25 Completed NPI:[id number] 00:00:00 1 DTAP 1997-04-25 Completed NPI:[id number] 00:00:00 1 IPV 1997-04-25 Completed NPI:[id number] 00:00:00 1 MMR 1997-04-25 Completed NPI:[id number] 00:00:00 1 DTAP 1997-04-25 Completed NPI:[id number] 00:00:00 1 IPV 1997-04-25 Completed NPI:[id number] 00:00:00 1 MMR 1997-04-25 Completed NPI:[id number] 00:00:00 1 DTAP 1997-04-25 Completed NPI:[id number] 00:00:00 1 IPV 1997-04-25 Completed NPI:[id number] 00:00:00 1 MMR 1997-04-25 Completed NPI:[id number] 00:00:00 1 Chickenpox Disease 1995 Completed NPI:18 [id number] 00:00:00 1 Chickenpox Disease 1995 Completed NPI:18 [id number] 00:00:00 1 Chickenpox Disease 1995 Completed NPI:18 [id number] 00:00:00 1 Chickenpox Disease 1995 Completed NPI:18 [id number] 00:00:00 1 Chickenpox Disease 1995 Completed NPI:18 [id number] 00:00:00 1 Chickenpox Disease 1995 Completed NPI:18 [id number] 00:00:00 1 Chickenpox Disease 1995 Completed NPI:18 [id number] 00:00:00 1 Chickenpox Disease 1995 Completed NPI:18 [id number] 00:00:00 1 Chickenpox Disease 1995 Completed NPI:18 [id number] 00:00:00 1 Chickenpox Disease 1995 Completed NPI:18 [id number] 00:00:00 1 Chickenpox Disease 1995 Completed NPI:18 [id number] 00:00:00 1 Chickenpox Disease 1995 Completed NPI:18 [id number] 00:00:00 1 Chickenpox Disease 1995 Completed NPI:18 [id number] 00:00:00 1 Chickenpox Disease 1995 Completed NPI:18 [id number] 00:00:00 1 Chickenpox Disease 1995 Completed NPI:18 [id number] 00:00:00 1 Chickenpox Disease 1995 Completed NPI:18 [id number] 00:00:00 1 Chickenpox Disease 1995 Completed NPI:18 [id number] 00:00:00 1 Chickenpox Disease 1995 Completed NPI:18 [id number] 00:00:00 1 Chickenpox Disease 1995 Completed NPI:18 [id number] 00:00:00 1 Chickenpox Disease 1995 Completed NPI:18 [id number] 00:00:00 1 Chickenpox Disease 1995 Completed NPI:18 [id number] 00:00:00 1 Chickenpox Disease 1995 Completed NPI:18 [id number] 00:00:00 1 Chickenpox Disease 1995 Completed NPI:18 [id number] 00:00:00 1 Chickenpox Disease 1995 Completed NPI:18 [id number] 00:00:00 1 Chickenpox Disease 1995 Completed NPI:18 [id number] 00:00:00 1 Chickenpox Disease 1995 Completed NPI:18 [id number] 00:00:00 1 Chickenpox Disease 1995 Completed NPI:18 [id number] 00:00:00 1 Chickenpox Disease 1995 Completed NPI:18 [id number] 00:00:00 1 Chickenpox Disease 1995 Completed NPI:18 [id number] 00:00:00 1 Chickenpox Disease 1995 Completed NPI:18 [id number] 00:00:00 1 Chickenpox Disease 1995 Completed NPI:18 [id number] 00:00:00 1 Chickenpox Disease 1995 Completed NPI:18 [id number] 00:00:00 1 Chickenpox Disease 1995 Completed NPI:18 [id number] 00:00:00 1 Chickenpox Disease 1995 Completed NPI:18 [id number] 00:00:00 1 Chickenpox Disease 1995 Completed NPI:18 [id number] 00:00:00 1 Chickenpox Disease 1995 Completed NPI:18 [id number] 00:00:00 1 Chickenpox Disease 1995 Completed NPI:18 [id number] 00:00:00 1 Chickenpox Disease 1995 Completed NPI:18 [id number] 00:00:00 1 Chickenpox Disease 1995 Completed NPI:18 [id number] 00:00:00 1 Chickenpox Disease 1995 Completed NPI:18 [id number] 00:00:00 1 Chickenpox Disease 1995 Completed NPI:18 [id number] 00:00:00 1 Chickenpox Disease 1995 Completed NPI:18 [id number] 00:00:00 1 Chickenpox Disease 1995 Completed NPI:18 [id number] 00:00:00 1 Chickenpox Disease 1995 Completed NPI:18 [id number] 00:00:00 1 Chickenpox Disease 1995 Completed NPI:18 [id number] 00:00:00 1 Chickenpox Disease 1995 Completed NPI:18 [id number] 00:00:00 1 Chickenpox Disease 1995 Completed NPI:18 [id number] 00:00:00 1 Chickenpox Disease 1995 Completed NPI:18 [id number] 00:00:00 1 Chickenpox Disease 1995 Completed NPI:18 [id number] 00:00:00 1 Heamophilus Influenza 1994-03-31 Completed NPI :[id number] B 00:00:00 1 MMR 1994-03-31 Completed NPI:[id number] 00:00:00 1 Heamophilus Influenza 1994-03-31 Completed NPI :[id number] B 00:00:00 1 MMR 1994-03-31 Completed NPI:[id number] 00:00:00 1 Heamophilus Influenza 1994-03-31 Completed NPI :[id number] B 00:00:00 1 MMR 1994-03-31 Completed NPI:[id number] 00:00:00 1 Heamophilus Influenza 1994-03-31 Completed NPI :[id number] B 00:00:00 1 Heamophilus Influenza 1994-03-31 Completed NPI :[id number] B 00:00:00 1 MMR 1994-03-31 Completed NPI:[id number] 00:00:00 1 MMR 1994-03-31 Completed NPI:[id number] 00:00:00 1 Heamophilus Influenza 1994-03-31 Completed NPI :[id number] B 00:00:00 1 MMR 1994-03-31 Completed NPI:[id number] 00:00:00 1 Heamophilus Influenza 1994-03-31 Completed NPI :[id number] B 00:00:00 1 MMR 1994-03-31 Completed NPI:[id number] 00:00:00 1 Heamophilus Influenza 1994-03-31 Completed NPI :[id number] B 00:00:00 1 MMR 1994-03-31 Completed NPI:[id number] 00:00:00 1 Heamophilus Influenza 1994-03-31 Completed NPI :[id number] B 00:00:00 1 MMR 1994-03-31 Completed NPI:[id number] 00:00:00 1 Heamophilus Influenza 1994-03-31 Completed NPI :[id number] B 00:00:00 1 MMR 1994-03-31 Completed NPI:[id number] 00:00:00 1 Heamophilus Influenza 1994-03-31 Completed NPI :[id number] B 00:00:00 1 MMR 1994-03-31 Completed NPI:[id number] 00:00:00 1 Heamophilus Influenza 1994-03-31 Completed NPI :[id number] B 00:00:00 1 MMR 1994-03-31 Completed NPI:[id number] 00:00:00 1 Heamophilus Influenza 1994-03-31 Completed NPI :[id number] B 00:00:00 1 Heamophilus Influenza 1994-03-31 Completed NPI :[id number] B 00:00:00 1 MMR 1994-03-31 Completed NPI:[id number] 00:00:00 1 Heamophilus Influenza 1994-03-31 Completed NPI :[id number] B 00:00:00 1 MMR 1994-03-31 Completed NPI:[id number] 00:00:00 1 MMR 1994-03-31 Completed NPI:[id number] 00:00:00 1 Heamophilus Influenza 1994-03-31 Completed NPI :[id number] B 00:00:00 1 MMR 1994-03-31 Completed NPI:[id number] 00:00:00 1 Heamophilus Influenza 1994-03-31 Completed NPI :[id number] B 00:00:00 1 MMR 1994-03-31 Completed NPI:[id number] 00:00:00 1 Heamophilus Influenza 1994-03-31 Completed NPI :[id number] B 00:00:00 1 MMR 1994-03-31 Completed NPI:[id number] 00:00:00 1 Heamophilus Influenza 1994-03-31 Completed NPI :[id number] B 00:00:00 1 MMR 1994-03-31 Completed NPI:[id number] 00:00:00 1 Heamophilus Influenza 1994-03-31 Completed NPI :[id number] B 00:00:00 1 Heamophilus Influenza 1994-03-31 Completed NPI :[id number] B 00:00:00 1 MMR 1994-03-31 Completed NPI:[id number] 00:00:00 1 MMR 1994-03-31 Completed NPI:[id number] 00:00:00 1 Heamophilus Influenza 1994-03-31 Completed NPI :[id number] B 00:00:00 1 MMR 1994-03-31 Completed NPI:[id number] 00:00:00 1 Heamophilus Influenza 1994-03-31 Completed NPI :[id number] B 00:00:00 1 MMR 1994-03-31 Completed NPI:[id number] 00:00:00 1 Heamophilus Influenza 1994-03-31 Completed NPI :[id number] B 00:00:00 1 MMR 1994-03-31 Completed NPI:[id number] 00:00:00 1 Heamophilus Influenza 1994-03-31 Completed NPI :[id number] B 00:00:00 1 MMR 1994-03-31 Completed NPI:[id number] 00:00:00 1 Heamophilus Influenza 1994-03-31 Completed NPI :[id number] B 00:00:00 1 MMR 1994-03-31 Completed NPI:[id number] 00:00:00 1 Heamophilus Influenza 1994-03-31 Completed NPI :[id number] B 00:00:00 1 MMR 1994-03-31 Completed NPI:[id number] 00:00:00 1 Heamophilus Influenza 1994-03-31 Completed NPI :[id number] B 00:00:00 1 MMR 1994-03-31 Completed NPI:[id number] 00:00:00 1 Heamophilus Influenza 1994-03-31 Completed NPI :[id number] B 00:00:00 1 Heamophilus Influenza 1994-03-31 Completed NPI :[id number] B 00:00:00 1 MMR 1994-03-31 Completed NPI:[id number] 00:00:00 1 Heamophilus Influenza 1994-03-31 Completed NPI :[id number] B 00:00:00 1 MMR 1994-03-31 Completed NPI:[id number] 00:00:00 1 MMR 1994-03-31 Completed NPI:[id number] 00:00:00 1 Heamophilus Influenza 1994-03-31 Completed NPI :[id number] B 00:00:00 1 MMR 1994-03-31 Completed NPI:[id number] 00:00:00 1 Heamophilus Influenza 1994-03-31 Completed NPI :[id number] B 00:00:00 1 MMR 1994-03-31 Completed NPI:[id number] 00:00:00 1 Heamophilus Influenza 1994-03-31 Completed NPI :[id number] B 00:00:00 1 MMR 1994-03-31 Completed NPI:[id number] 00:00:00 1 Heamophilus Influenza 1994-03-31 Completed NPI :[id number] B 00:00:00 1 MMR 1994-03-31 Completed NPI:[id number] 00:00:00 1 Heamophilus Influenza 1994-03-31 Completed NPI :[id number] B 00:00:00 1 MMR 1994-03-31 Completed NPI:[id number] 00:00:00 1 Heamophilus Influenza 1994-03-31 Completed NPI :[id number] B 00:00:00 1 MMR 1994-03-31 Completed NPI:[id number] 00:00:00 1 Heamophilus Influenza 1994-03-31 Completed NPI :[id number] B 00:00:00 1 MMR 1994-03-31 Completed NPI:[id number] 00:00:00 1 Heamophilus Influenza 1994-03-31 Completed NPI :[id number] B 00:00:00 1 MMR 1994-03-31 Completed NPI:[id number] 00:00:00 1 Heamophilus Influenza 1994-03-31 Completed NPI :[id number] B 00:00:00 1 MMR 1994-03-31 Completed NPI:[id number] 00:00:00 1 Heamophilus Influenza 1994-03-31 Completed NPI :[id number] B 00:00:00 1 MMR 1994-03-31 Completed NPI:[id number] 00:00:00 1 Heamophilus Influenza 1994-03-31 Completed NPI :[id number] B 00:00:00 1 MMR 1994-03-31 Completed NPI:[id number] 00:00:00 1 Heamophilus Influenza 1994-03-31 Completed NPI :[id number] B 00:00:00 1 MMR 1994-03-31 Completed NPI:[id number] 00:00:00 1 Heamophilus Influenza 1994-03-31 Completed NPI :[id number] B 00:00:00 1 MMR 1994-03-31 Completed NPI:[id number] 00:00:00 1 Heamophilus Influenza 1994-03-31 Completed NPI :[id number] B 00:00:00 1 MMR 1994-03-31 Completed NPI:[id number] 00:00:00 1 Heamophilus Influenza 1994-03-31 Completed NPI :[id number] B 00:00:00 1 MMR 1994-03-31 Completed NPI:[id number] 00:00:00 1 Heamophilus Influenza 1994-03-31 Completed NPI :[id number] B 00:00:00 1 MMR 1994-03-31 Completed NPI:[id number] 00:00:00 1 Heamophilus Influenza 1994-03-31 Completed NPI :[id number] B 00:00:00 1 MMR 1994-03-31 Completed NPI:[id number] 00:00:00 1 Heamophilus Influenza 1994-03-31 Completed NPI :[id number] B 00:00:00 1 MMR 1994-03-31 Completed NPI:[id number] 00:00:00 1 Polio (IPV/OPV) 1994-02-17 Completed NPI:[id number] [id number] 00:00:00 1 DTP 1994-02-17 Completed NPI:[id number] 00:00:00 1 Heamophilus Influenza 1994-02-17 Completed NPI :[id number] B 00:00:00 1 OPV 1994-02-17 Completed NPI:[id number] 00:00:00 1 Polio (IPV/OPV) 1994-02-17 Completed NPI:[id number] 1878 00:00:00 1 DTP 1994-02-17 Completed NPI:[id number] 00:00:00 1 DTP 1994-02-17 Completed NPI:[id number] 00:00:00 1 Heamophilus Influenza 1994-02-17 Completed NPI :[id number] B 00:00:00 1 OPV 1994-02-17 Completed NPI:[id number] 00:00:00 1 Polio (IPV/OPV) 1994-02-17 Completed NPI:[id number] 1878 00:00:00 1 DTP 1994-02-17 Completed NPI:[id number] 00:00:00 1 Heamophilus Influenza 1994-02-17 Completed NPI :[id number] B 00:00:00 1 OPV 1994-02-17 Completed NPI:[id number] 00:00:00 1 Heamophilus Influenza 1994-02-17 Completed NPI :[id number] B 00:00:00 1 Polio (IPV/OPV) 1994-02-17 Completed NPI:[id number] 1878 00:00:00 1 DTP 1994-02-17 Completed NPI:[id number] 00:00:00 1 Heamophilus Influenza 1994-02-17 Completed NPI :[id number] B 00:00:00 1 OPV 1994-02-17 Completed NPI:[id number] 00:00:00 1 Polio (IPV/OPV) 1994-02-17 Completed NPI:[id number] 1878 00:00:00 1 DTP 1994-02-17 Completed NPI:[id number] 00:00:00 1 Heamophilus Influenza 1994-02-17 Completed NPI :[id number] B 00:00:00 1 OPV 1994-02-17 Completed NPI:[id number] 00:00:00 1 Polio (IPV/OPV) 1994-02-17 Completed NPI:[id number] 1878 00:00:00 1 OPV 1994-02-17 Completed NPI:[id number] 00:00:00 1 DTP 1994-02-17 Completed NPI:[id number] 00:00:00 1 Heamophilus Influenza 1994-02-17 Completed NPI :[id number] B 00:00:00 1 OPV 1994-02-17 Completed NPI:[id number] 00:00:00 1 Polio (IPV/OPV) 1994-02-17 Completed NPI:[id number] 1878 00:00:00 1 DTP 1994-02-17 Completed NPI:[id number] 00:00:00 1 Heamophilus Influenza 1994-02-17 Completed NPI :[id number] B 00:00:00 1 Polio (IPV/OPV) 1994-02-17 Completed NPI:[id number] 1878 00:00:00 1 OPV 1994-02-17 Completed NPI:[id number] 00:00:00 1 Polio (IPV/OPV) 1994-02-17 Completed NPI:[id number] 1878 00:00:00 1 DTP 1994-02-17 Completed NPI:[id number] 00:00:00 1 Heamophilus Influenza 1994-02-17 Completed NPI :[id number] B 00:00:00 1 OPV 1994-02-17 Completed NPI:[id number] 00:00:00 1 Polio (IPV/OPV) 1994-02-17 Completed NPI:[id number] 1878 00:00:00 1 DTP 1994-02-17 Completed NPI:[id number] 00:00:00 1 Heamophilus Influenza 1994-02-17 Completed NPI :[id number] B 00:00:00 1 OPV 1994-02-17 Completed NPI:[id number] 00:00:00 1 Polio (IPV/OPV) 1994-02-17 Completed NPI:[id number] 1878 00:00:00 1 DTP 1994-02-17 Completed NPI:[id number] 00:00:00 1 Heamophilus Influenza 1994-02-17 Completed NPI :[id number] B 00:00:00 1 OPV 1994-02-17 Completed NPI:[id number] 00:00:00 1 DTP 1994-02-17 Completed NPI:[id number] 00:00:00 1 Polio (IPV/OPV) 1994-02-17 Completed NPI:[id number] 1878 00:00:00 1 DTP 1994-02-17 Completed NPI:[id number] 00:00:00 1 Heamophilus Influenza 1994-02-17 Completed NPI :[id number] B 00:00:00 1 OPV 1994-02-17 Completed NPI:[id number] 00:00:00 1 Polio (IPV/OPV) 1994-02-17 Completed NPI:[id number] 1878 00:00:00 1 Heamophilus Influenza 1994-02-17 Completed NPI :[id number] B 00:00:00 1 DTP 1994-02-17 Completed NPI:[id number] 00:00:00 1 Heamophilus Influenza 1994-02-17 Completed NPI :[id number] B 00:00:00 1 OPV 1994-02-17 Completed NPI:[id number] 00:00:00 1 Polio (IPV/OPV) 1994-02-17 Completed NPI:[id number] 1878 00:00:00 1 DTP 1994-02-17 Completed NPI:[id number] 00:00:00 1 Heamophilus Influenza 1994-02-17 Completed NPI :[id number] B 00:00:00 1 OPV 1994-02-17 Completed NPI:[id number] 00:00:00 1 Polio (IPV/OPV) 1994-02-17 Completed NPI:[id number] 1878 00:00:00 1 OPV 1994-02-17 Completed NPI:[id number] 00:00:00 1 DTP 1994-02-17 Completed NPI:[id number] 00:00:00 1 Heamophilus Influenza 1994-02-17 Completed NPI :[id number] B 00:00:00 1 OPV 1994-02-17 Completed NPI:[id number] 00:00:00 1 Polio (IPV/OPV) 1994-02-17 Completed NPI:[id number] 1878 00:00:00 1 DTP 1994-02-17 Completed NPI:[id number] 00:00:00 1 Heamophilus Influenza 1994-02-17 Completed NPI :[id number] B 00:00:00 1 OPV 1994-02-17 Completed NPI:[id number] 00:00:00 1 Polio (IPV/OPV) 1994-02-17 Completed NPI:[id number] 1878 00:00:00 1 Polio (IPV/OPV) 1994-02-17 Completed NPI:30789 1878 00:00:00 1 DTP 1994-02-17 Completed NPI:[id number] 00:00:00 1 Heamophilus Influenza 1994-02-17 Completed NPI :[id number] B 00:00:00 1 OPV 1994-02-17 Completed NPI:[id number] 00:00:00 1 Polio (IPV/OPV) 1994-02-17 Completed NPI:[id number] 1878 00:00:00 1 DTP 1994-02-17 Completed NPI:[id number] 00:00:00 1 Heamophilus Influenza 1994-02-17 Completed NPI :[id number] B 00:00:00 1 OPV 1994-02-17 Completed NPI:[id number] 00:00:00 1 Polio (IPV/OPV) 1994-02-17 Completed NPI:[id number] 1878 00:00:00 1 DTP 1994-02-17 Completed NPI:[id number] 00:00:00 1 DTP 1994-02-17 Completed NPI:[id number] 00:00:00 1 Heamophilus Influenza 1994-02-17 Completed NPI :[id number] B 00:00:00 1 Heamophilus Influenza 1994-02-17 Completed NPI :[id number] B 00:00:00 1 OPV 1994-02-17 Completed NPI:[id number] 00:00:00 1 Polio (IPV/OPV) 1994-02-17 Completed NPI:[id number] 1878 00:00:00 1 DTP 1994-02-17 Completed NPI:[id number] 00:00:00 1 Heamophilus Influenza 1994-02-17 Completed NPI :[id number] B 00:00:00 1 OPV 1994-02-17 Completed NPI:[id number] 00:00:00 1 Polio (IPV/OPV) 1994-02-17 Completed NPI:[id number] 1878 00:00:00 1 OPV 1994-02-17 Completed NPI:[id number] 00:00:00 1 DTP 1994-02-17 Completed NPI:[id number] 00:00:00 1 Heamophilus Influenza 1994-02-17 Completed NPI :[id number] B 00:00:00 1 OPV 1994-02-17 Completed NPI:[id number] 00:00:00 1 Polio (IPV/OPV) 1994-02-17 Completed NPI:[id number] 1878 00:00:00 1 DTP 1994-02-17 Completed NPI:[id number] 00:00:00 1 Heamophilus Influenza 1994-02-17 Completed NPI :[id number] B 00:00:00 1 Polio (IPV/OPV) 1994-02-17 Completed NPI:[id number] 1878 00:00:00 1 OPV 1994-02-17 Completed NPI:[id number] 00:00:00 1 Polio (IPV/OPV) 1994-02-17 Completed NPI:[id number] 1878 00:00:00 1 DTP 1994-02-17 Completed NPI:[id number] 00:00:00 1 Heamophilus Influenza 1994-02-17 Completed NPI :[id number] B 00:00:00 1 OPV 1994-02-17 Completed NPI:[id number] 00:00:00 1 Polio (IPV/OPV) 1994-02-17 Completed NPI:[id number] 1878 00:00:00 1 DTP 1994-02-17 Completed NPI:[id number] 00:00:00 1 Heamophilus Influenza 1994-02-17 Completed NPI :[id number] B 00:00:00 1 OPV 1994-02-17 Completed NPI:[id number] 00:00:00 1 Polio (IPV/OPV) 1994-02-17 Completed NPI:[id number] 1878 00:00:00 1 DTP 1994-02-17 Completed NPI:[id number] 00:00:00 1 Heamophilus Influenza 1994-02-17 Completed NPI :[id number] B 00:00:00 1 OPV 1994-02-17 Completed NPI:[id number] 00:00:00 1 Polio (IPV/OPV) 1994-02-17 Completed NPI:[id number] 1878 00:00:00 1 DTP 1994-02-17 Completed NPI:[id number] 00:00:00 1 DTP 1994-02-17 Completed NPI:[id number] 00:00:00 1 Heamophilus Influenza 1994-02-17 Completed NPI :[id number] B 00:00:00 1 OPV 1994-02-17 Completed NPI:[id number] 00:00:00 1 Polio (IPV/OPV) 1994-02-17 Completed NPI:[id number] 1878 00:00:00 1 Heamophilus Influenza 1994-02-17 Completed NPI :[id number] B 00:00:00 1 DTP 1994-02-17 Completed NPI:[id number] 00:00:00 1 Heamophilus Influenza 1994-02-17 Completed NPI :[id number] B 00:00:00 1 OPV 1994-02-17 Completed NPI:[id number] 00:00:00 1 Polio (IPV/OPV) 1994-02-17 Completed NPI:[id number] 1878 00:00:00 1 DTP 1994-02-17 Completed NPI:[id number] 00:00:00 1 Heamophilus Influenza 1994-02-17 Completed NPI :[id number] B 00:00:00 1 OPV 1994-02-17 Completed NPI:[id number] 00:00:00 1 Polio (IPV/OPV) 1994-02-17 Completed NPI:[id number] 1878 00:00:00 1 OPV 1994-02-17 Completed NPI:[id number] 00:00:00 1 DTP 1994-02-17 Completed NPI:[id number] 00:00:00 1 Heamophilus Influenza 1994-02-17 Completed NPI :[id number] B 00:00:00 1 OPV 1994-02-17 Completed NPI:[id number] 00:00:00 1 Polio (IPV/OPV) 1994-02-17 Completed NPI:[id number] 1878 00:00:00 1 DTP 1994-02-17 Completed NPI:[id number] 00:00:00 1 Heamophilus Influenza 1994-02-17 Completed NPI :[id number] B 00:00:00 1 OPV 1994-02-17 Completed NPI:[id number] 00:00:00 1 Polio (IPV/OPV) 1994-02-17 Completed NPI:[id number] 1878 00:00:00 1 Polio (IPV/OPV) 1994-02-17 Completed NPI:[id number] 1878 00:00:00 1 DTP 1994-02-17 Completed NPI:[id number] 00:00:00 1 Heamophilus Influenza 1994-02-17 Completed NPI :[id number] B 00:00:00 1 OPV 1994-02-17 Completed NPI:[id number] 00:00:00 1 Polio (IPV/OPV) 1994-02-17 Completed NPI:[id number] 1878 00:00:00 1 DTP 1994-02-17 Completed NPI:[id number] 00:00:00 1 Heamophilus Influenza 1994-02-17 Completed NPI :[id number] B 00:00:00 1 OPV 1994-02-17 Completed NPI:[id number] 00:00:00 1 Polio (IPV/OPV) 1994-02-17 Completed NPI:[id number] 1878 00:00:00 1 DTP 1994-02-17 Completed NPI:[id number] 00:00:00 1 Heamophilus Influenza 1994-02-17 Completed NPI :[id number] B 00:00:00 1 OPV 1994-02-17 Completed NPI:[id number] 00:00:00 1 Polio (IPV/OPV) 1994-02-17 Completed NPI:[id number] 1878 00:00:00 1 DTP 1994-02-17 Completed NPI:[id number] 00:00:00 1 Heamophilus Influenza 1994-02-17 Completed NPI :[id number] B 00:00:00 1 OPV 1994-02-17 Completed NPI:[id number] 00:00:00 1 Polio (IPV/OPV) 1994-02-17 Completed NPI:[id number] 1878 00:00:00 1 DTP 1994-02-17 Completed NPI:[id number] 00:00:00 1 Heamophilus Influenza 1994-02-17 Completed NPI :[id number] B 00:00:00 1 OPV 1994-02-17 Completed NPI:[id number] 00:00:00 1 Polio (IPV/OPV) 1994-02-17 Completed NPI:[id number] 1878 00:00:00 1 DTP 1994-02-17 Completed NPI:[id number] 00:00:00 1 Heamophilus Influenza 1994-02-17 Completed NPI :[id number] B 00:00:00 1 OPV 1994-02-17 Completed NPI:[id number] 00:00:00 1 Polio (IPV/OPV) 1994-02-17 Completed NPI:[id number] 1878 00:00:00 1 DTP 1994-02-17 Completed NPI:[id number] 00:00:00 1 Heamophilus Influenza 1994-02-17 Completed NPI :[id number] B 00:00:00 1 OPV 1994-02-17 Completed NPI:[id number] 00:00:00 1 Polio (IPV/OPV) 1994-02-17 Completed NPI:[id number] 1878 00:00:00 1 DTP 1994-02-17 Completed NPI:[id number] 00:00:00 1 Heamophilus Influenza 1994-02-17 Completed NPI :[id number] B 00:00:00 1 OPV 1994-02-17 Completed NPI:[id number] 00:00:00 1 Polio (IPV/OPV) 1994-02-17 Completed NPI:[id number] 1878 00:00:00 1 DTP 1994-02-17 Completed NPI:[id number] 00:00:00 1 Heamophilus Influenza 1994-02-17 Completed NPI :[id number] B 00:00:00 1 OPV 1994-02-17 Completed NPI:[id number] 00:00:00 1 Polio (IPV/OPV) 1994-02-17 Completed NPI:[id number] 1878 00:00:00 1 DTP 1994-02-17 Completed NPI:[id number] 00:00:00 1 Heamophilus Influenza 1994-02-17 Completed NPI :[id number] B 00:00:00 1 OPV 1994-02-17 Completed NPI:[id number] 00:00:00 1 Polio (IPV/OPV) 1994-02-17 Completed NPI:[id number] 1878 00:00:00 1 DTP 1994-02-17 Completed NPI:[id number] 00:00:00 1 Heamophilus Influenza 1994-02-17 Completed NPI :[id number] B 00:00:00 1 OPV 1994-02-17 Completed NPI:[id number] 00:00:00 1 Polio (IPV/OPV) 1994-02-17 Completed NPI:[id number] 1878 00:00:00 1 DTP 1994-02-17 Completed NPI:[id number] 00:00:00 1 Heamophilus Influenza 1994-02-17 Completed NPI :[id number] B 00:00:00 1 OPV 1994-02-17 Completed NPI:[id number] 00:00:00 1 Polio (IPV/OPV) 1994-02-17 Completed NPI:[id number] 1878 00:00:00 1 DTP 1994-02-17 Completed NPI:[id number] 00:00:00 1 Heamophilus Influenza 1994-02-17 Completed NPI :[id number] B 00:00:00 1 OPV 1994-02-17 Completed NPI:[id number] 00:00:00 1 Polio (IPV/OPV) 1994-02-17 Completed NPI:[id number] 1878 00:00:00 1 DTP 1994-02-17 Completed NPI:[id number] 00:00:00 1 Heamophilus Influenza 1994-02-17 Completed NPI :[id number] B 00:00:00 1 OPV 1994-02-17 Completed NPI:[id number] 00:00:00 1 Polio (IPV/OPV) 1994-02-17 Completed NPI:[id number] 1878 00:00:00 1 DTP 1994-02-17 Completed NPI:[id number] 00:00:00 1 Heamophilus Influenza 1994-02-17 Completed NPI :[id number] B 00:00:00 1 OPV 1994-02-17 Completed NPI:[id number] 00:00:00 1 Polio (IPV/OPV) 1994-02-17 Completed NPI:[id number] 1878 00:00:00 1 DTP 1994-02-17 Completed NPI:[id number] 00:00:00 1 Heamophilus Influenza 1994-02-17 Completed NPI :[id number] B 00:00:00 1 OPV 1994-02-17 Completed NPI:[id number] 00:00:00 1 Hep B, Adol or Pedi 1993 Completed NPI:1 [id number] Dosage 00:00:00 1 Polio (IPV/OPV) 1993 Completed NPI:[id number] 1878 00:00:00 1 DTP 1993 Completed NPI:[id number] 00:00:00 1 HEP B, Adult Dosage 1993 Completed NPI:1 [id number] 00:00:00 1 Heamophilus Influenza 1993 Completed NPI :[id number] B 00:00:00 1 OPV 1993 Completed NPI:[id number] 00:00:00 1 Hep B, Adol or Pedi 1993 Completed NPI:1 [id number] Dosage 00:00:00 1 Polio (IPV/OPV) 1993 Completed NPI:[id number] 1878 00:00:00 1 DTP 1993 Completed NPI:[id number] 00:00:00 1 DTP 1993 Completed NPI:[id number] 00:00:00 1 HEP B, Adult Dosage 1993 Completed NPI:1 [id number] 00:00:00 1 Heamophilus Influenza 1993 Completed NPI :[id number] B 00:00:00 1 OPV 1993 Completed NPI:[id number] 00:00:00 1 Hep B, Adol or Pedi 1993 Completed NPI:1 [id number] Dosage 00:00:00 1 Polio (IPV/OPV) 1993 Completed NPI:[id number] 1878 00:00:00 1 HEP B, Adult Dosage 1993 Completed NPI:1 [id number] 00:00:00 1 DTP 1993 Completed NPI:[id number] 00:00:00 1 HEP B, Adult Dosage 1993 Completed NPI:1 [id number] 00:00:00 1 Heamophilus Influenza 1993 Completed NPI :[id number] B 00:00:00 1 Heamophilus Influenza 1993 Completed NPI :[id number] B 00:00:00 1 OPV 1993 Completed NPI:[id number] 00:00:00 1 Hep B, Adol or Pedi 1993 Completed NPI:1 [id number] Dosage 00:00:00 1 Polio (IPV/OPV) 1993 Completed NPI:[id number] 1878 00:00:00 1 DTP 1993 Completed NPI:[id number] 00:00:00 1 HEP B, Adult Dosage 1993 Completed NPI:1 [id number] 00:00:00 1 Heamophilus Influenza 1993 Completed NPI :[id number] B 00:00:00 1 OPV 1993 Completed NPI:[id number] 00:00:00 1 Hep B, Adol or Pedi 1993 Completed NPI:1 [id number] Dosage 00:00:00 1 Polio (IPV/OPV) 1993 Completed NPI:[id number] 1878 00:00:00 1 DTP 1993 Completed NPI:[id number] 00:00:00 1 HEP B, Adult Dosage 1993 Completed NPI:1 [id number] 00:00:00 1 Heamophilus Influenza 1993 Completed NPI :[id number] B 00:00:00 1 OPV 1993 Completed NPI:[id number] 00:00:00 1 Hep B, Adol or Pedi 1993 Completed NPI:1 [id number] Dosage 00:00:00 1 OPV 1993 Completed NPI:[id number] 00:00:00 1 Polio (IPV/OPV) 1993 Completed NPI:[id number] 1878 00:00:00 1 DTP 1993 Completed NPI:[id number] 00:00:00 1 HEP B, Adult Dosage 1993 Completed NPI:1 [id number] 00:00:00 1 Heamophilus Influenza 1993 Completed NPI :[id number] B 00:00:00 1 OPV 1993 Completed NPI:[id number] 00:00:00 1 Hep B, Adol or Pedi 1993 Completed NPI:1 [id number] Dosage 00:00:00 1 Polio (IPV/OPV) 1993 Completed NPI:[id number] 1878 00:00:00 1 Hep B, Adol or Pedi 1993 Completed NPI:1 [id number] Dosage 00:00:00 1 DTP 1993 Completed NPI:[id number] 00:00:00 1 HEP B, Adult Dosage 1993 Completed NPI:1 [id number] 00:00:00 1 Heamophilus Influenza 1993 Completed NPI :[id number] B 00:00:00 1 Polio (IPV/OPV) 1993 Completed NPI:[id number] 1878 00:00:00 1 OPV 1993 Completed NPI:[id number] 00:00:00 1 Hep B, Adol or Pedi 1993 Completed NPI:1 [id number] Dosage 00:00:00 1 Polio (IPV/OPV) 1993 Completed NPI:[id number] 1878 00:00:00 1 DTP 1993 Completed NPI:[id number] 00:00:00 1 HEP B, Adult Dosage 1993 Completed NPI:1 [id number] 00:00:00 1 Heamophilus Influenza 1993 Completed NPI :[id number] B 00:00:00 1 OPV 1993 Completed NPI:[id number] 00:00:00 1 Hep B, Adol or Pedi 1993 Completed NPI:1 [id number] Dosage 00:00:00 1 Polio (IPV/OPV) 1993 Completed NPI:[id number] 1878 00:00:00 1 DTP 1993 Completed NPI:[id number] 00:00:00 1 HEP B, Adult Dosage 1993 Completed NPI:1 [id number] 00:00:00 1 Heamophilus Influenza 1993 Completed NPI :[id number] B 00:00:00 1 OPV 1993 Completed NPI:[id number] 00:00:00 1 Hep B, Adol or Pedi 1993 Completed NPI:1 [id number] Dosage 00:00:00 1 Polio (IPV/OPV) 1993 Completed NPI:[id number] 1878 00:00:00 1 DTP 1993 Completed NPI:[id number] 00:00:00 1 HEP B, Adult Dosage 1993 Completed NPI:1 [id number] 00:00:00 1 Heamophilus Influenza 1993 Completed NPI :[id number] B 00:00:00 1 DTP 1993 Completed NPI:[id number] 00:00:00 1 OPV 1993 Completed NPI:[id number] 00:00:00 1 Hep B, Adol or Pedi 1993 Completed NPI:1 [id number] Dosage 00:00:00 1 Polio (IPV/OPV) 1993 Completed NPI:78292 1878 00:00:00 1 DTP 1993 Completed NPI:[id number] 00:00:00 1 HEP B, Adult Dosage 1993 Completed NPI:1 [id number] 00:00:00 1 Heamophilus Influenza 1993 Completed NPI :[id number] B 00:00:00 1 HEP B, Adult Dosage 1993 Completed NPI:1 [id number] 00:00:00 1 OPV 1993 Completed NPI:[id number] 00:00:00 1 Hep B, Adol or Pedi 1993 Completed NPI:1 [id number] Dosage 00:00:00 1 Polio (IPV/OPV) 1993 Completed NPI:[id number] 1878 00:00:00 1 Heamophilus Influenza 1993 Completed NPI :[id number] B 00:00:00 1 DTP 1993 Completed NPI:[id number] 00:00:00 1 HEP B, Adult Dosage 1993 Completed NPI:1 [id number] 00:00:00 1 Heamophilus Influenza 1993 Completed NPI :[id number] B 00:00:00 1 OPV 1993 Completed NPI:[id number] 00:00:00 1 Hep B, Adol or Pedi 1993 Completed NPI:1 [id number] Dosage 00:00:00 1 Polio (IPV/OPV) 1993 Completed NPI:[id number] 1878 00:00:00 1 DTP 1993 Completed NPI:[id number] 00:00:00 1 HEP B, Adult Dosage 1993 Completed NPI:1 [id number] 00:00:00 1 Heamophilus Influenza 1993 Completed NPI :[id number] B 00:00:00 1 OPV 1993 Completed NPI:[id number] 00:00:00 1 Hep B, Adol or Pedi 1993 Completed NPI:1 [id number] Dosage 00:00:00 1 Polio (IPV/OPV) 1993 Completed NPI:[id number] 1878 00:00:00 1 OPV 1993 Completed NPI:[id number] 00:00:00 1 DTP 1993 Completed NPI:[id number] 00:00:00 1 HEP B, Adult Dosage 1993 Completed NPI:1 [id number] 00:00:00 1 Heamophilus Influenza 1993 Completed NPI :[id number] B 00:00:00 1 OPV 1993 Completed NPI:[id number] 00:00:00 1 Hep B, Adol or Pedi 1993 Completed NPI:1 [id number] Dosage 00:00:00 1 Polio (IPV/OPV) 1993 Completed NPI:78160 1878 00:00:00 1 Hep B, Adol or Pedi 1993 Completed NPI:1 [id number] Dosage 00:00:00 1 DTP 1993 Completed NPI:[id number] 00:00:00 1 HEP B, Adult Dosage 1993 Completed NPI:1 [id number] 00:00:00 1 Heamophilus Influenza 1993 Completed NPI :[id number] B 00:00:00 1 Polio (IPV/OPV) 1993 Completed NPI:78911 1878 00:00:00 1 OPV 1993 Completed NPI:[id number] 00:00:00 1 Hep B, Adol or Pedi 1993 Completed NPI:1 [id number] Dosage 00:00:00 1 Polio (IPV/OPV) 1993 Completed NPI:[id number] 1878 00:00:00 1 DTP 1993 Completed NPI:[id number] 00:00:00 1 HEP B, Adult Dosage 1993 Completed NPI:1 [id number] 00:00:00 1 Heamophilus Influenza 1993 Completed NPI :[id number] B 00:00:00 1 OPV 1993 Completed NPI:[id number] 00:00:00 1 Hep B, Adol or Pedi 1993 Completed NPI:1 [id number] Dosage 00:00:00 1 Polio (IPV/OPV) 1993 Completed NPI:78408 1878 00:00:00 1 DTP 1993 Completed NPI:[id number] 00:00:00 1 HEP B, Adult Dosage 1993 Completed NPI:1 [id number] 00:00:00 1 Heamophilus Influenza 1993 Completed NPI :[id number] B 00:00:00 1 OPV 1993 Completed NPI:[id number] 00:00:00 1 Hep B, Adol or Pedi 1993 Completed NPI:1 [id number] Dosage 00:00:00 1 Polio (IPV/OPV) 1993 Completed NPI:80176 1878 00:00:00 1 DTP 1993 Completed NPI:[id number] 00:00:00 1 HEP B, Adult Dosage 1993 Completed NPI:1 [id number] 00:00:00 1 Heamophilus Influenza 1993 Completed NPI :[id number] B 00:00:00 1 DTP 1993 Completed NPI:[id number] 00:00:00 1 HEP B, Adult Dosage 1993 Completed NPI:1 [id number] 00:00:00 1 Heamophilus Influenza 1993 Completed NPI :[id number] B 00:00:00 1 OPV 1993 Completed NPI:[id number] 00:00:00 1 Hep B, Adol or Pedi 1993 Completed NPI:1 [id number] Dosage 00:00:00 1 Polio (IPV/OPV) 1993 Completed NPI:[id number] 1878 00:00:00 1 DTP 1993 Completed NPI:[id number] 00:00:00 1 HEP B, Adult Dosage 1993 Completed NPI:1 [id number] 00:00:00 1 Heamophilus Influenza 1993 Completed NPI :[id number] B 00:00:00 1 OPV 1993 Completed NPI:[id number] 00:00:00 1 Hep B, Adol or Pedi 1993 Completed NPI:1 [id number] Dosage 00:00:00 1 Polio (IPV/OPV) 1993 Completed NPI:[id number] 1878 00:00:00 1 OPV 1993 Completed NPI:[id number] 00:00:00 1 DTP 1993 Completed NPI:[id number] 00:00:00 1 HEP B, Adult Dosage 1993 Completed NPI:1 [id number] 00:00:00 1 Heamophilus Influenza 1993 Completed NPI :[id number] B 00:00:00 1 OPV 1993 Completed NPI:[id number] 00:00:00 1 Hep B, Adol or Pedi 1993 Completed NPI:1 [id number] Dosage 00:00:00 1 Polio (IPV/OPV) 1993 Completed NPI:49243 1878 00:00:00 1 Hep B, Adol or Pedi 1993 Completed NPI:1 [id number] Dosage 00:00:00 1 DTP 1993 Completed NPI:[id number] 00:00:00 1 Polio (IPV/OPV) 1993 Completed NPI:76396 1878 00:00:00 1 HEP B, Adult Dosage 1993 Completed NPI:1 [id number] 00:00:00 1 Heamophilus Influenza 1993 Completed NPI :[id number] B 00:00:00 1 OPV 1993 Completed NPI:[id number] 00:00:00 1 Hep B, Adol or Pedi 1993 Completed NPI:1 [id number] Dosage 00:00:00 1 Polio (IPV/OPV) 1993 Completed NPI:[id number] 1878 00:00:00 1 DTP 1993 Completed NPI:[id number] 00:00:00 1 HEP B, Adult Dosage 1993 Completed NPI:1 [id number] 00:00:00 1 Heamophilus Influenza 1993 Completed NPI :[id number] B 00:00:00 1 OPV 1993 Completed NPI:[id number] 00:00:00 1 Hep B, Adol or Pedi 1993 Completed NPI:1 [id number] Dosage 00:00:00 1 Polio (IPV/OPV) 1993 Completed NPI:[id number] 1878 00:00:00 1 DTP 1993 Completed NPI:[id number] 00:00:00 1 HEP B, Adult Dosage 1993 Completed NPI:1 [id number] 00:00:00 1 Heamophilus Influenza 1993 Completed NPI :[id number] B 00:00:00 1 OPV 1993 Completed NPI:[id number] 00:00:00 1 Hep B, Adol or Pedi 1993 Completed NPI:1 [id number] Dosage 00:00:00 1 Polio (IPV/OPV) 1993 Completed NPI:59989 1878 00:00:00 1 DTP 1993 Completed NPI:[id number] 00:00:00 1 HEP B, Adult Dosage 1993 Completed NPI:1 [id number] 00:00:00 1 Heamophilus Influenza 1993 Completed NPI :[id number] B 00:00:00 1 OPV 1993 Completed NPI:[id number] 00:00:00 1 Hep B, Adol or Pedi 1993 Completed NPI:1 [id number] Dosage 00:00:00 1 Polio (IPV/OPV) 1993 Completed NPI:59764 1878 00:00:00 1 DTP 1993 Completed NPI:[id number] 00:00:00 1 DTP 1993 Completed NPI:[id number] 00:00:00 1 HEP B, Adult Dosage 1993 Completed NPI:1 [id number] 00:00:00 1 Heamophilus Influenza 1993 Completed NPI :[id number] B 00:00:00 1 HEP B, Adult Dosage 1993 Completed NPI:1 [id number] 00:00:00 1 OPV 1993 Completed NPI:[id number] 00:00:00 1 Hep B, Adol or Pedi 1993 Completed NPI:1 [id number] Dosage 00:00:00 1 Polio (IPV/OPV) 1993 Completed NPI:[id number] 1878 00:00:00 1 Heamophilus Influenza 1993 Completed NPI :[id number] B 00:00:00 1 DTP 1993 Completed NPI:[id number] 00:00:00 1 HEP B, Adult Dosage 1993 Completed NPI:1 [id number] 00:00:00 1 Heamophilus Influenza 1993 Completed NPI :[id number] B 00:00:00 1 OPV 1993 Completed NPI:[id number] 00:00:00 1 Hep B, Adol or Pedi 1993 Completed NPI:1 [id number] Dosage 00:00:00 1 Polio (IPV/OPV) 1993 Completed NPI:54985 1878 00:00:00 1 DTP 1993 Completed NPI:[id number] 00:00:00 1 HEP B, Adult Dosage 1993 Completed NPI:1 [id number] 00:00:00 1 Heamophilus Influenza 1993 Completed NPI :[id number] B 00:00:00 1 OPV 1993 Completed NPI:[id number] 00:00:00 1 Hep B, Adol or Pedi 1993 Completed NPI:1 [id number] Dosage 00:00:00 1 Polio (IPV/OPV) 1993 Completed NPI:53283 1878 00:00:00 1 OPV 1993 Completed NPI:[id number] 00:00:00 1 DTP 1993 Completed NPI:[id number] 00:00:00 1 HEP B, Adult Dosage 1993 Completed NPI:1 [id number] 00:00:00 1 Heamophilus Influenza 1993 Completed NPI :[id number] B 00:00:00 1 OPV 1993 Completed NPI:[id number] 00:00:00 1 Hep B, Adol or Pedi 1993 Completed NPI:1 [id number] Dosage 00:00:00 1 Polio (IPV/OPV) 1993 Completed NPI:[id number] 1878 00:00:00 1 DTP 1993 Completed NPI:[id number] 00:00:00 1 Hep B, Adol or Pedi 1993 Completed NPI:1 [id number] Dosage 00:00:00 1 HEP B, Adult Dosage 1993 Completed NPI:1 [id number] 00:00:00 1 Heamophilus Influenza 1993 Completed NPI :[id number] B 00:00:00 1 OPV 1993 Completed NPI:[id number] 00:00:00 1 Hep B, Adol or Pedi 1993 Completed NPI:1 [id number] Dosage 00:00:00 1 Polio (IPV/OPV) 1993 Completed NPI:75405 1878 00:00:00 1 Polio (IPV/OPV) 1993 Completed NPI:67906 1878 00:00:00 1 DTP 1993 Completed NPI:[id number] 00:00:00 1 HEP B, Adult Dosage 1993 Completed NPI:1 [id number] 00:00:00 1 Heamophilus Influenza 1993 Completed NPI :[id number] B 00:00:00 1 OPV 1993 Completed NPI:[id number] 00:00:00 1 Hep B, Adol or Pedi 1993 Completed NPI:1 [id number] Dosage 00:00:00 1 Polio (IPV/OPV) 1993 Completed NPI:[id number] 1878 00:00:00 1 DTP 1993 Completed NPI:[id number] 00:00:00 1 HEP B, Adult Dosage 1993 Completed NPI:1 [id number] 00:00:00 1 Heamophilus Influenza 1993 Completed NPI :[id number] B 00:00:00 1 OPV 1993 Completed NPI:[id number] 00:00:00 1 Hep B, Adol or Pedi 1993 Completed NPI:1 [id number] Dosage 00:00:00 1 Polio (IPV/OPV) 1993 Completed NPI:20834 1878 00:00:00 1 DTP 1993 Completed NPI:[id number] 00:00:00 1 HEP B, Adult Dosage 1993 Completed NPI:1 [id number] 00:00:00 1 Heamophilus Influenza 1993 Completed NPI :[id number] B 00:00:00 1 OPV 1993 Completed NPI:[id number] 00:00:00 1 Hep B, Adol or Pedi 1993 Completed NPI:1 [id number] Dosage 00:00:00 1 Polio (IPV/OPV) 1993 Completed NPI:[id number] 1878 00:00:00 1 DTP 1993 Completed NPI:[id number] 00:00:00 1 HEP B, Adult Dosage 1993 Completed NPI:1 [id number] 00:00:00 1 Heamophilus Influenza 1993 Completed NPI :[id number] B 00:00:00 1 OPV 1993 Completed NPI:[id number] 00:00:00 1 Hep B, Adol or Pedi 1993 Completed NPI:1 [id number] Dosage 00:00:00 1 Polio (IPV/OPV) 1993 Completed NPI:[id number] 1878 00:00:00 1 DTP 1993 Completed NPI:[id number] 00:00:00 1 HEP B, Adult Dosage 1993 Completed NPI:1 [id number] 00:00:00 1 Heamophilus Influenza 1993 Completed NPI :[id number] B 00:00:00 1 OPV 1993 Completed NPI:[id number] 00:00:00 1 Hep B, Adol or Pedi 1993 Completed NPI:1 [id number] Dosage 00:00:00 1 Polio (IPV/OPV) 1993 Completed NPI:26614 1878 00:00:00 1 DTP 1993 Completed NPI:[id number] 00:00:00 1 HEP B, Adult Dosage 1993 Completed NPI:1 [id number] 00:00:00 1 Heamophilus Influenza 1993 Completed NPI :[id number] B 00:00:00 1 OPV 1993 Completed NPI:[id number] 00:00:00 1 Hep B, Adol or Pedi 1993 Completed NPI:1 [id number] Dosage 00:00:00 1 Polio (IPV/OPV) 1993 Completed NPI:[id number] 1878 00:00:00 1 DTP 1993 Completed NPI:[id number] 00:00:00 1 HEP B, Adult Dosage 1993 Completed NPI:1 [id number] 00:00:00 1 Heamophilus Influenza 1993 Completed NPI :[id number] B 00:00:00 1 OPV 1993 Completed NPI:[id number] 00:00:00 1 Hep B, Adol or Pedi 1993 Completed NPI:1 [id number] Dosage 00:00:00 1 Polio (IPV/OPV) 1993 Completed NPI:65894 1878 00:00:00 1 DTP 1993 Completed NPI:[id number] 00:00:00 1 HEP B, Adult Dosage 1993 Completed NPI:1 [id number] 00:00:00 1 Heamophilus Influenza 1993 Completed NPI :405390486 B 00:00:00 1 OPV 1993 Completed NPI:[id number] 00:00:00 1 Hep B, Adol or Pedi 1993 Completed NPI:1 [id number] Dosage 00:00:00 1 Polio (IPV/OPV) 1993 Completed NPI:63715 1878 00:00:00 1 DTP 1993 Completed NPI:[id number] 00:00:00 1 HEP B, Adult Dosage 1993 Completed NPI:1 [id number] 00:00:00 1 Heamophilus Influenza 1993 Completed NPI :[id number] B 00:00:00 1 OPV 1993 Completed NPI:[id number] 00:00:00 1 Hep B, Adol or Pedi 1993 Completed NPI:1 [id number] Dosage 00:00:00 1 Polio (IPV/OPV) 1993 Completed NPI:10489 1878 00:00:00 1 DTP 1993 Completed NPI:[id number] 00:00:00 1 HEP B, Adult Dosage 1993 Completed NPI:1 [id number] 00:00:00 1 Heamophilus Influenza 1993 Completed NPI :[id number] B 00:00:00 1 OPV 1993 Completed NPI:[id number] 00:00:00 1 Hep B, Adol or Pedi 1993 Completed NPI:1 [id number] Dosage 00:00:00 1 Polio (IPV/OPV) 1993 Completed NPI:62825 1878 00:00:00 1 DTP 1993 Completed NPI:[id number] 00:00:00 1 HEP B, Adult Dosage 1993 Completed NPI:1 [id number] 00:00:00 1 Heamophilus Influenza 1993 Completed NPI :[id number] B 00:00:00 1 OPV 1993 Completed NPI:[id number] 00:00:00 1 Hep B, Adol or Pedi 1993 Completed NPI:1 [id number] Dosage 00:00:00 1 Polio (IPV/OPV) 1993 Completed NPI:83496 1878 00:00:00 1 DTP 1993 Completed NPI:[id number] 00:00:00 1 HEP B, Adult Dosage 1993 Completed NPI:1 [id number] 00:00:00 1 Heamophilus Influenza 1993 Completed NPI :[id number] B 00:00:00 1 OPV 1993 Completed NPI:[id number] 00:00:00 1 Hep B, Adol or Pedi 1993 Completed NPI:1 [id number] Dosage 00:00:00 1 Polio (IPV/OPV) 1993 Completed NPI:[id number] 1878 00:00:00 1 DTP 1993 Completed NPI:[id number] 00:00:00 1 HEP B, Adult Dosage 1993 Completed NPI:1 [id number] 00:00:00 1 Heamophilus Influenza 1993 Completed NPI :[id number] B 00:00:00 1 OPV 1993 Completed NPI:[id number] 00:00:00 1 Hep B, Adol or Pedi 1993 Completed NPI:1 [id number] Dosage 00:00:00 1 Polio (IPV/OPV) 1993 Completed NPI:13705 1878 00:00:00 1 DTP 1993 Completed NPI:[id number] 00:00:00 1 HEP B, Adult Dosage 1993 Completed NPI:1 [id number] 00:00:00 1 Heamophilus Influenza 1993 Completed NPI :[id number] B 00:00:00 1 OPV 1993 Completed NPI:[id number] 00:00:00 1 Hep B, Adol or Pedi 1993 Completed NPI:1 [id number] Dosage 00:00:00 1 Polio (IPV/OPV) 1993 Completed NPI:05582 1878 00:00:00 1 DTP 1993 Completed NPI:[id number] 00:00:00 1 HEP B, Adult Dosage 1993 Completed NPI:1 [id number] 00:00:00 1 Heamophilus Influenza 1993 Completed NPI :[id number] B 00:00:00 1 OPV 1993 Completed NPI:[id number] 00:00:00 1 Hep B, Adol or Pedi 1993 Completed NPI:1 [id number] Dosage 00:00:00 1 Polio (IPV/OPV) 1993 Completed NPI:67145 1878 00:00:00 1 DTP 1993 Completed NPI:[id number] 00:00:00 1 HEP B, Adult Dosage 1993 Completed NPI:1 [id number] 00:00:00 1 Heamophilus Influenza 1993 Completed NPI :[id number] B 00:00:00 1 OPV 1993 Completed NPI:[id number] 00:00:00 1 Hep B, Adol or Pedi 1993 Completed NPI:1 [id number] Dosage 00:00:00 1 Polio (IPV/OPV) 1993 Completed NPI:26805 1878 00:00:00 1 DTP 1993 Completed NPI:[id number] 00:00:00 1 HEP B, Adult Dosage 1993 Completed NPI:1 [id number] 00:00:00 1 Heamophilus Influenza 1993 Completed NPI :[id number] B 00:00:00 1 OPV 1993 Completed NPI:[id number] 00:00:00 1 DTP 1993 Completed NPI:[id number] 00:00:00 1 Hep B, Adol or Pedi 1993 Completed NPI:1 [id number] Dosage 00:00:00 1 Polio (IPV/OPV) 1993 Completed NPI:[id number] 1878 00:00:00 1 DTP 1993 Completed NPI:[id number] 00:00:00 1 HEP B, Adult Dosage 1993 Completed NPI:1 [id number] 00:00:00 1 Heamophilus Influenza 1993 Completed NPI :[id number] B 00:00:00 1 OPV 1993 Completed NPI:[id number] 00:00:00 1 Hep B, Adol or Pedi 1993 Completed NPI:1 [id number] Dosage 00:00:00 1 Polio (IPV/OPV) 1993 Completed NPI:33841 1878 00:00:00 1 HEP B, Adult Dosage 1993 Completed NPI:1 [id number] 00:00:00 1 DTP 1993 Completed NPI:[id number] 00:00:00 1 Heamophilus Influenza 1993 Completed NPI :[id number] B 00:00:00 1 HEP B, Adult Dosage 1993 Completed NPI:1 [id number] 00:00:00 1 Heamophilus Influenza 1993 Completed NPI :[id number] B 00:00:00 1 OPV 1993 Completed NPI:[id number] 00:00:00 1 Hep B, Adol or Pedi 1993 Completed NPI:1 [id number] Dosage 00:00:00 1 Polio (IPV/OPV) 1993 Completed NPI:[id number] 00:00:00 1 DTP 1993 Completed NPI:[id number] 00:00:00 1 HEP B, Adult Dosage 1993 Completed NPI:1 [id number] 00:00:00 1 Heamophilus Influenza 1993 Completed NPI :[id number] B 00:00:00 1 OPV 1993 Completed NPI:[id number] 00:00:00 1 Hep B, Adol or Pedi 1993 Completed NPI:1 [id number] Dosage 00:00:00 1 Polio (IPV/OPV) 1993 Completed NPI:[id number] 00:00:00 1 DTP 1993 Completed NPI:[id number] 00:00:00 1 HEP B, Adult Dosage 1993 Completed NPI:1 [id number] 00:00:00 1 Heamophilus Influenza 1993 Completed NPI :[id number] B 00:00:00 1 OPV 1993 Completed NPI:[id number] 00:00:00 1 OPV 1993 Completed NPI:[id number] 00:00:00 1 Hep B, Adol or Pedi 1993 Completed NPI:1 [id number] Dosage 00:00:00 1 Polio (IPV/OPV) 1993 Completed NPI:[id number] 00:00:00 1 DTP 1993 Completed NPI:[id number] 00:00:00 1 HEP B, Adult Dosage 1993 Completed NPI:1 [id number] 00:00:00 1 Heamophilus Influenza 1993 Completed NPI :[id number] B 00:00:00 1 OPV 1993 Completed NPI:[id number] 00:00:00 1 Hep B, Adol or Pedi 1993 Completed NPI:1 [id number] Dosage 00:00:00 1 Hep B, Adol or Pedi 1993 Completed NPI:1 [id number] Dosage 00:00:00 1 Polio (IPV/OPV) 1993 Completed NPI:[id number] 00:00:00 1 DTP 1993 Completed NPI:[id number] 00:00:00 1 Polio (IPV/OPV) 1993 Completed NPI:[id number] 00:00:00 1 HEP B, Adult Dosage 1993 Completed NPI:1 [id number] 00:00:00 1 Heamophilus Influenza 1993 Completed NPI :[id number] B 00:00:00 1 OPV 1993 Completed NPI:[id number] 00:00:00 1 Hep B, Adol or Pedi 1993 Completed NPI:1 [id number] Dosage 00:00:00 1 Polio (IPV/OPV) 1993 Completed NPI:[id number] 00:00:00 1 DTP 1993 Completed NPI:[id number] 00:00:00 1 HEP B, Adult Dosage 1993 Completed NPI:1 [id number] 00:00:00 1 Heamophilus Influenza 1993 Completed NPI :[id number] B 00:00:00 1 OPV 1993 Completed NPI:[id number] 00:00:00 1 Hep B, Adol or Pedi 1993 Completed NPI:1 [id number] Dosage 00:00:00 1 Polio (IPV/OPV) 1993 Completed NPI:[id number] 00:00:00 1 DTP 1993 Completed NPI:[id number] 00:00:00 1 HEP B, Adult Dosage 1993 Completed NPI:1 [id number] 00:00:00 1 Heamophilus Influenza 1993 Completed NPI :[id number] B 00:00:00 1 OPV 1993 Completed NPI:[id number] 00:00:00 1 Hep B, Adol or Pedi 1993 Completed NPI:1 [id number] Dosage 00:00:00 1 Polio (IPV/OPV) 1993 Completed NPI:[id number] 00:00:00 1 DTP 1993 Completed NPI:[id number] 00:00:00 1 DTP 1993 Completed NPI:[id number] 00:00:00 1 HEP B, Adult Dosage 1993 Completed NPI:1 [id number] 00:00:00 1 Heamophilus Influenza 1993 Completed NPI :[id number] B 00:00:00 1 OPV 1993 Completed NPI:[id number] 00:00:00 1 Hep B, Adol or Pedi 1993 Completed NPI:1 [id number] Dosage 00:00:00 1 Polio (IPV/OPV) 1993 Completed NPI:[id number] 1878 00:00:00 1 DTP 1993 Completed NPI:[id number] 00:00:00 1 HEP B, Adult Dosage 1993 Completed NPI:1 [id number] 00:00:00 1 Heamophilus Influenza 1993 Completed NPI :[id number] B 00:00:00 1 HEP B, Adult Dosage 1993 Completed NPI:1 [id number] 00:00:00 1 OPV 1993 Completed NPI:[id number] 00:00:00 1 Hep B, Adol or Pedi 1993 Completed NPI:1 [id number] Dosage 00:00:00 1 Polio (IPV/OPV) 1993 Completed NPI:[id number] 00:00:00 1 Heamophilus Influenza 1993 Completed NPI :[id number] B 00:00:00 1 DTP 1993 Completed NPI:[id number] 00:00:00 1 HEP B, Adult Dosage 1993 Completed NPI:1 [id number] 00:00:00 1 Heamophilus Influenza 1993 Completed NPI :[id number] B 00:00:00 1 OPV 1993 Completed NPI:[id number] 00:00:00 1 Hep B, Adol or Pedi 1993 Completed NPI:1 [id number] Dosage 00:00:00 1 Polio (IPV/OPV) 1993 Completed NPI:[id number] 00:00:00 1 DTP 1993 Completed NPI:[id number] 00:00:00 1 HEP B, Adult Dosage 1993 Completed NPI:1 [id number] 00:00:00 1 Heamophilus Influenza 1993 Completed NPI :[id number] B 00:00:00 1 OPV 1993 Completed NPI:[id number] 00:00:00 1 Hep B, Adol or Pedi 1993 Completed NPI:1 [id number] Dosage 00:00:00 1 Polio (IPV/OPV) 1993 Completed NPI:[id number] 1878 00:00:00 1 OPV 1993 Completed NPI:[id number] 00:00:00 1 DTP 1993 Completed NPI:[id number] 00:00:00 1 HEP B, Adult Dosage 1993 Completed NPI:1 [id number] 00:00:00 1 Heamophilus Influenza 1993 Completed NPI :[id number] B 00:00:00 1 OPV 1993 Completed NPI:[id number] 00:00:00 1 Hep B, Adol or Pedi 1993 Completed NPI:1 [id number] Dosage 00:00:00 1 Polio (IPV/OPV) 1993 Completed NPI:[id number] 1878 00:00:00 1 Hep B, Adol or Pedi 1993 Completed NPI:1 [id number] Dosage 00:00:00 1 DTP 1993 Completed NPI:[id number] 00:00:00 1 HEP B, Adult Dosage 1993 Completed NPI:1 [id number] 00:00:00 1 Heamophilus Influenza 1993 Completed NPI :[id number] B 00:00:00 1 Polio (IPV/OPV) 1993 Completed NPI:[id number] 1878 00:00:00 1 OPV 1993 Completed NPI:[id number] 00:00:00 1 Hep B, Adol or Pedi 1993 Completed NPI:1 [id number] Dosage 00:00:00 1 Polio (IPV/OPV) 1993 Completed NPI:[id number] 1878 00:00:00 1 DTP 1993 Completed NPI:[id number] 00:00:00 1 HEP B, Adult Dosage 1993 Completed NPI:1 [id number] 00:00:00 1 Heamophilus Influenza 1993 Completed NPI :[id number] B 00:00:00 1 OPV 1993 Completed NPI:[id number] 00:00:00 1 Hep B, Adol or Pedi 1993 Completed NPI:1 [id number] Dosage 00:00:00 1 Polio (IPV/OPV) 1993 Completed NPI:[id number] 1878 00:00:00 1 DTP 1993 Completed NPI:[id number] 00:00:00 1 HEP B, Adult Dosage 1993 Completed NPI:1 [id number] 00:00:00 1 Heamophilus Influenza 1993 Completed NPI :[id number] B 00:00:00 1 OPV 1993 Completed NPI:[id number] 00:00:00 1 Hep B, Adol or Pedi 1993 Completed NPI:1 [id number] Dosage 00:00:00 1 Polio (IPV/OPV) 1993 Completed NPI:[id number] 1878 00:00:00 1 DTP 1993 Completed NPI:[id number] 00:00:00 1 HEP B, Adult Dosage 1993 Completed NPI:1 [id number] 00:00:00 1 Heamophilus Influenza 1993 Completed NPI :[id number] B 00:00:00 1 DTP 1993 Completed NPI:[id number] 00:00:00 1 HEP B, Adult Dosage 1993 Completed NPI:1 [id number] 00:00:00 1 Heamophilus Influenza 1993 Completed NPI :[id number] B 00:00:00 1 OPV 1993 Completed NPI:[id number] 00:00:00 1 Hep B, Adol or Pedi 1993 Completed NPI:1 [id number] Dosage 00:00:00 1 Polio (IPV/OPV) 1993 Completed NPI:[id number] 1878 00:00:00 1 DTP 1993 Completed NPI:[id number] 00:00:00 1 HEP B, Adult Dosage 1993 Completed NPI:1 [id number] 00:00:00 1 Heamophilus Influenza 1993 Completed NPI :[id number] B 00:00:00 1 OPV 1993 Completed NPI:[id number] 00:00:00 1 OPV 1993 Completed NPI:[id number] 00:00:00 1 Hep B, Adol or Pedi 1993 Completed NPI:1 [id number] Dosage 00:00:00 1 Polio (IPV/OPV) 1993 Completed NPI:[id number] 1878 00:00:00 1 DTP 1993 Completed NPI:[id number] 00:00:00 1 HEP B, Adult Dosage 1993 Completed NPI:1 [id number] 00:00:00 1 Heamophilus Influenza 1993 Completed NPI :[id number] B 00:00:00 1 OPV 1993 Completed NPI:[id number] 00:00:00 1 Hep B, Adol or Pedi 1993 Completed NPI:1 [id number] Dosage 00:00:00 1 Polio (IPV/OPV) 1993 Completed NPI:[id number] 1878 00:00:00 1 Hep B, Adol or Pedi 1993 Completed NPI:1 [id number] Dosage 00:00:00 1 Polio (IPV/OPV) 1993 Completed NPI:[id number] 1878 00:00:00 1 DTP 1993 Completed NPI:[id number] 00:00:00 1 HEP B, Adult Dosage 1993 Completed NPI:1 [id number] 00:00:00 1 Heamophilus Influenza 1993 Completed NPI :[id number] B 00:00:00 1 OPV 1993 Completed NPI:[id number] 00:00:00 1 Hep B, Adol or Pedi 1993 Completed NPI:1 [id number] Dosage 00:00:00 1 Polio (IPV/OPV) 1993 Completed NPI:[id number] 1878 00:00:00 1 DTP 1993 Completed NPI:[id number] 00:00:00 1 HEP B, Adult Dosage 1993 Completed NPI:1 [id number] 00:00:00 1 Heamophilus Influenza 1993 Completed NPI :[id number] B 00:00:00 1 OPV 1993 Completed NPI:[id number] 00:00:00 1 Hep B, Adol or Pedi 1993 Completed NPI:1 [id number] Dosage 00:00:00 1 Polio (IPV/OPV) 1993 Completed NPI:[id number] 1878 00:00:00 1 DTP 1993 Completed NPI:[id number] 00:00:00 1 HEP B, Adult Dosage 1993 Completed NPI:1 [id number] 00:00:00 1 Heamophilus Influenza 1993 Completed NPI :[id number] B 00:00:00 1 OPV 1993 Completed NPI:[id number] 00:00:00 1 Hep B, Adol or Pedi 1993 Completed NPI:1 [id number] Dosage 00:00:00 1 Polio (IPV/OPV) 1993 Completed NPI:[id number] 1878 00:00:00 1 DTP 1993 Completed NPI:[id number] 00:00:00 1 HEP B, Adult Dosage 1993 Completed NPI:1 [id number] 00:00:00 1 Heamophilus Influenza 1993 Completed NPI :[id number] B 00:00:00 1 OPV 1993 Completed NPI:[id number] 00:00:00 1 DTP 1993 Completed NPI:[id number] 00:00:00 1 Hep B, Adol or Pedi 1993 Completed NPI:1 [id number] Dosage 00:00:00 1 Polio (IPV/OPV) 1993 Completed NPI:[id number] 1878 00:00:00 1 DTP 1993 Completed NPI:[id number] 00:00:00 1 HEP B, Adult Dosage 1993 Completed NPI:1 [id number] 00:00:00 1 HEP B, Adult Dosage 1993 Completed NPI:1 [id number] 00:00:00 1 Heamophilus Influenza 1993 Completed NPI :[id number] B 00:00:00 1 OPV 1993 Completed NPI:[id number] 00:00:00 1 Heamophilus Influenza 1993 Completed NPI :[id number] B 00:00:00 1 Hep B, Adol or Pedi 1993 Completed NPI:1 [id number] Dosage 00:00:00 1 Polio (IPV/OPV) 1993 Completed NPI:[id number] 1878 00:00:00 1 DTP 1993 Completed NPI:[id number] 00:00:00 1 HEP B, Adult Dosage 1993 Completed NPI:1 [id number] 00:00:00 1 Heamophilus Influenza 1993 Completed NPI :[id number] B 00:00:00 1 OPV 1993 Completed NPI:[id number] 00:00:00 1 Hep B, Adol or Pedi 1993 Completed NPI:1 [id number] Dosage 00:00:00 1 Polio (IPV/OPV) 1993 Completed NPI:[id number] 1878 00:00:00 1 DTP 1993 Completed NPI:[id number] 00:00:00 1 HEP B, Adult Dosage 1993 Completed NPI:1 [id number] 00:00:00 1 Heamophilus Influenza 1993 Completed NPI :[id number] B 00:00:00 1 OPV 1993 Completed NPI:[id number] 00:00:00 1 Hep B, Adol or Pedi 1993 Completed NPI:1 [id number] Dosage 00:00:00 1 Polio (IPV/OPV) 1993 Completed NPI:[id number] 1878 00:00:00 1 OPV 1993 Completed NPI:[id number] 00:00:00 1 DTP 1993 Completed NPI:[id number] 00:00:00 1 HEP B, Adult Dosage 1993 Completed NPI:1 [id number] 00:00:00 1 Heamophilus Influenza 1993 Completed NPI :[id number] B 00:00:00 1 OPV 1993 Completed NPI:[id number] 00:00:00 1 Hep B, Adol or Pedi 1993 Completed NPI:1 [id number] Dosage 00:00:00 1 Polio (IPV/OPV) 1993 Completed NPI:[id number] 1878 00:00:00 1 Hep B, Adol or Pedi 1993 Completed NPI:1 [id number] Dosage 00:00:00 1 DTP 1993 Completed NPI:[id number] 00:00:00 1 HEP B, Adult Dosage 1993 Completed NPI:1 [id number] 00:00:00 1 Heamophilus Influenza 1993 Completed NPI :[id number] B 00:00:00 1 OPV 1993 Completed NPI:[id number] 00:00:00 1 Polio (IPV/OPV) 1993 Completed NPI:[id number] 1878 00:00:00 1 Hep B, Adol or Pedi 1993 Completed NPI:1 [id number] Dosage 00:00:00 1 Polio (IPV/OPV) 1993 Completed NPI:[id number] 1878 00:00:00 1 DTP 1993 Completed NPI:[id number] 00:00:00 1 HEP B, Adult Dosage 1993 Completed NPI:1 [id number] 00:00:00 1 Heamophilus Influenza 1993 Completed NPI :[id number] B 00:00:00 1 OPV 1993 Completed NPI:[id number] 00:00:00 1 Hep B, Adol or Pedi 1993 Completed NPI:1 [id number] Dosage 00:00:00 1 Polio (IPV/OPV) 1993 Completed NPI:[id number] 1878 00:00:00 1 DTP 1993 Completed NPI:[id number] 00:00:00 1 HEP B, Adult Dosage 1993 Completed NPI:1 [id number] 00:00:00 1 Heamophilus Influenza 1993 Completed NPI :[id number] B 00:00:00 1 OPV 1993 Completed NPI:[id number] 00:00:00 1 Hep B, Adol or Pedi 1993 Completed NPI:1 [id number] Dosage 00:00:00 1 Polio (IPV/OPV) 1993 Completed NPI:[id number] 1878 00:00:00 1 DTP 1993 Completed NPI:[id number] 00:00:00 1 HEP B, Adult Dosage 1993 Completed NPI:1 [id number] 00:00:00 1 Heamophilus Influenza 1993 Completed NPI :[id number] B 00:00:00 1 OPV 1993 Completed NPI:[id number] 00:00:00 1 Hep B, Adol or Pedi 1993 Completed NPI:1 [id number] Dosage 00:00:00 1 Polio (IPV/OPV) 1993 Completed NPI:[id number] 1878 00:00:00 1 DTP 1993 Completed NPI:[id number] 00:00:00 1 HEP B, Adult Dosage 1993 Completed NPI:1 [id number] 00:00:00 1 Heamophilus Influenza 1993 Completed NPI :[id number] B 00:00:00 1 OPV 1993 Completed NPI:[id number] 00:00:00 1 Hep B, Adol or Pedi 1993 Completed NPI:1 [id number] Dosage 00:00:00 1 Polio (IPV/OPV) 1993 Completed NPI:[id number] 1878 00:00:00 1 DTP 1993 Completed NPI:[id number] 00:00:00 1 HEP B, Adult Dosage 1993 Completed NPI:1 [id number] 00:00:00 1 Heamophilus Influenza 1993 Completed NPI :[id number] B 00:00:00 1 OPV 1993 Completed NPI:[id number] 00:00:00 1 Hep B, Adol or Pedi 1993 Completed NPI:1 [id number] Dosage 00:00:00 1 Polio (IPV/OPV) 1993 Completed NPI:[id number] 1878 00:00:00 1 DTP 1993 Completed NPI:[id number] 00:00:00 1 HEP B, Adult Dosage 1993 Completed NPI:1 [id number] 00:00:00 1 Heamophilus Influenza 1993 Completed NPI :[id number] B 00:00:00 1 OPV 1993 Completed NPI:[id number] 00:00:00 1 Hep B, Adol or Pedi 1993 Completed NPI:1 [id number] Dosage 00:00:00 1 Polio (IPV/OPV) 1993 Completed NPI:[id number] 1878 00:00:00 1 DTP 1993 Completed NPI:[id number] 00:00:00 1 HEP B, Adult Dosage 1993 Completed NPI:1 [id number] 00:00:00 1 Heamophilus Influenza 1993 Completed NPI :[id number] B 00:00:00 1 OPV 1993 Completed NPI:[id number] 00:00:00 1 Hep B, Adol or Pedi 1993 Completed NPI:1 [id number] Dosage 00:00:00 1 Polio (IPV/OPV) 1993 Completed NPI:[id number] 1878 00:00:00 1 DTP 1993 Completed NPI:[id number] 00:00:00 1 HEP B, Adult Dosage 1993 Completed NPI:1 [id number] 00:00:00 1 Heamophilus Influenza 1993 Completed NPI :[id number] B 00:00:00 1 OPV 1993 Completed NPI:[id number] 00:00:00 1 Hep B, Adol or Pedi 1993 Completed NPI:1 [id number] Dosage 00:00:00 1 Polio (IPV/OPV) 1993 Completed NPI:[id number] 1878 00:00:00 1 DTP 1993 Completed NPI:[id number] 00:00:00 1 HEP B, Adult Dosage 1993 Completed NPI:1 [id number] 00:00:00 1 Heamophilus Influenza 1993 Completed NPI :[id number] B 00:00:00 1 OPV 1993 Completed NPI:[id number] 00:00:00 1 Hep B, Adol or Pedi 1993 Completed NPI:1 [id number] Dosage 00:00:00 1 Polio (IPV/OPV) 1993 Completed NPI:[id number] 1878 00:00:00 1 DTP 1993 Completed NPI:[id number] 00:00:00 1 HEP B, Adult Dosage 1993 Completed NPI:1 [id number] 00:00:00 1 Heamophilus Influenza 1993 Completed NPI :[id number] B 00:00:00 1 OPV 1993 Completed NPI:[id number] 00:00:00 1 Hep B, Adol or Pedi 1993 Completed NPI:1 [id number] Dosage 00:00:00 1 Polio (IPV/OPV) 1993 Completed NPI:[id number] 1878 00:00:00 1 DTP 1993 Completed NPI:[id number] 00:00:00 1 HEP B, Adult Dosage 1993 Completed NPI:1 [id number] 00:00:00 1 Heamophilus Influenza 1993 Completed NPI :[id number] B 00:00:00 1 OPV 1993 Completed NPI:[id number] 00:00:00 1 Hep B, Adol or Pedi 1993 Completed NPI:1 [id number] Dosage 00:00:00 1 Polio (IPV/OPV) 1993 Completed NPI:[id number] 1878 00:00:00 1 DTP 1993 Completed NPI:[id number] 00:00:00 1 HEP B, Adult Dosage 1993 Completed NPI:1 [id number] 00:00:00 1 Heamophilus Influenza 1993 Completed NPI :[id number] B 00:00:00 1 OPV 1993 Completed NPI:[id number] 00:00:00 1 Hep B, Adol or Pedi 1993 Completed NPI:1 [id number] Dosage 00:00:00 1 Polio (IPV/OPV) 1993 Completed NPI:[id number] 1878 00:00:00 1 DTP 1993 Completed NPI:[id number] 00:00:00 1 HEP B, Adult Dosage 1993 Completed NPI:1 [id number] 00:00:00 1 Heamophilus Influenza 1993 Completed NPI :[id number] B 00:00:00 1 OPV 1993 Completed NPI:[id number] 00:00:00 1 Hep B, Adol or Pedi 1993 Completed NPI:1 [id number] Dosage 00:00:00 1 Polio (IPV/OPV) 1993 Completed NPI:[id number] 1878 00:00:00 1 DTP 1993 Completed NPI:[id number] 00:00:00 1 HEP B, Adult Dosage 1993 Completed NPI:1 [id number] 00:00:00 1 Heamophilus Influenza 1993 Completed NPI :[id number] B 00:00:00 1 OPV 1993 Completed NPI:[id number] 00:00:00 1 Hep B, Adol or Pedi 1993 Completed NPI:1 [id number] Dosage 00:00:00 1 Polio (IPV/OPV) 1993 Completed NPI:[id number] 1878 00:00:00 1 DTP 1993 Completed NPI:[id number] 00:00:00 1 HEP B, Adult Dosage 1993 Completed NPI:1 [id number] 00:00:00 1 Heamophilus Influenza 1993 Completed NPI :[id number] B 00:00:00 1 OPV 1993 Completed NPI:[id number] 00:00:00 1 Hep B, Adol or Pedi 1993 Completed NPI:1 [id number] Dosage 00:00:00 1 Polio (IPV/OPV) 1993 Completed NPI:[id number] 1878 00:00:00 1 DTP 1993 Completed NPI:[id number] 00:00:00 1 HEP B, Adult Dosage 1993 Completed NPI:1 [id number] 00:00:00 1 Heamophilus Influenza 1993 Completed NPI :[id number] B 00:00:00 1 OPV 1993 Completed NPI:[id number] 00:00:00 1 Hep B, Adol or Pedi 1993 Completed NPI:1 [id number] Dosage 00:00:00 1 HEP B, Adult Dosage 1993 Completed NPI:1 [id number] 00:00:00 1 Hep B, Adol or Pedi 1993 Completed NPI:1 [id number] Dosage 00:00:00 1 HEP B, Adult Dosage 1993 Completed NPI:1 [id number] 00:00:00 1 HEP B, Adult Dosage 1993 Completed NPI:1 [id number] 00:00:00 1 Hep B, Adol or Pedi 1993 Completed NPI:1 [id number] Dosage 00:00:00 1 HEP B, Adult Dosage 1993 Completed NPI:1 [id number] 00:00:00 1 Hep B, Adol or Pedi 1993 Completed NPI:1 [id number] Dosage 00:00:00 1 HEP B, Adult Dosage 1993 Completed NPI:1 [id number] 00:00:00 1 Hep B, Adol or Pedi 1993 Completed NPI:1 [id number] Dosage 00:00:00 1 HEP B, Adult Dosage 1993 Completed NPI:1 [id number] 00:00:00 1 Hep B, Adol or Pedi 1993 Completed NPI:1 [id number] Dosage 00:00:00 1 HEP B, Adult Dosage 1993 Completed NPI:1 [id number] 00:00:00 1 Hep B, Adol or Pedi 1993 Completed NPI:1 [id number] Dosage 00:00:00 1 Hep B, Adol or Pedi 1993 Completed NPI:1 [id number] Dosage 00:00:00 1 HEP B, Adult Dosage 1993 Completed NPI:1 [id number] 00:00:00 1 Hep B, Adol or Pedi 1993 Completed NPI:1 [id number] Dosage 00:00:00 1 HEP B, Adult Dosage 1993 Completed NPI:1 [id number] 00:00:00 1 Hep B, Adol or Pedi 1993 Completed NPI:1 [id number] Dosage 00:00:00 1 HEP B, Adult Dosage 1993 Completed NPI:1 [id number] 00:00:00 1 Hep B, Adol or Pedi 1993 Completed NPI:1 [id number] Dosage 00:00:00 1 HEP B, Adult Dosage 1993 Completed NPI:1 [id number] 00:00:00 1 Hep B, Adol or Pedi 1993 Completed NPI:1 [id number] Dosage 00:00:00 1 HEP B, Adult Dosage 1993 Completed NPI:1 [id number] 00:00:00 1 HEP B, Adult Dosage 1993 Completed NPI:1 [id number] 00:00:00 1 Hep B, Adol or Pedi 1993 Completed NPI:1 [id number] Dosage 00:00:00 1 HEP B, Adult Dosage 1993 Completed NPI:1 [id number] 00:00:00 1 Hep B, Adol or Pedi 1993 Completed NPI:1 [id number] Dosage 00:00:00 1 HEP B, Adult Dosage 1993 Completed NPI:1 [id number] 00:00:00 1 Hep B, Adol or Pedi 1993 Completed NPI:1 [id number] Dosage 00:00:00 1 HEP B, Adult Dosage 1993 Completed NPI:1 [id number] 00:00:00 1 Hep B, Adol or Pedi 1993 Completed NPI:1 [id number] Dosage 00:00:00 1 Hep B, Adol or Pedi 1993 Completed NPI:1 [id number] Dosage 00:00:00 1 HEP B, Adult Dosage 1993 Completed NPI:1 [id number] 00:00:00 1 Hep B, Adol or Pedi 1993 Completed NPI:1 [id number] Dosage 00:00:00 1 HEP B, Adult Dosage 1993 Completed NPI:1 [id number] 00:00:00 1 Hep B, Adol or Pedi 1993 Completed NPI:1 [id number] Dosage 00:00:00 1 HEP B, Adult Dosage 1993 Completed NPI:1 [id number] 00:00:00 1 Hep B, Adol or Pedi 1993 Completed NPI:1 [id number] Dosage 00:00:00 1 HEP B, Adult Dosage 1993 Completed NPI:1 [id number] 00:00:00 1 HEP B, Adult Dosage 1993 Completed NPI:1 [id number] 00:00:00 1 Hep B, Adol or Pedi 1993 Completed NPI:1 [id number] Dosage 00:00:00 1 HEP B, Adult Dosage 1993 Completed NPI:1 [id number] 00:00:00 1 Hep B, Adol or Pedi 1993 Completed NPI:1 [id number] Dosage 00:00:00 1 HEP B, Adult Dosage 1993 Completed NPI:1 [id number] 00:00:00 1 Hep B, Adol or Pedi 1993 Completed NPI:1 [id number] Dosage 00:00:00 1 Hep B, Adol or Pedi 1993 Completed NPI:1 [id number] Dosage 00:00:00 1 HEP B, Adult Dosage 1993 Completed NPI:1 [id number] 00:00:00 1 Hep B, Adol or Pedi 1993 Completed NPI:1 [id number] Dosage 00:00:00 1 HEP B, Adult Dosage 1993 Completed NPI:1 [id number] 00:00:00 1 Hep B, Adol or Pedi 1993 Completed NPI:1 [id number] Dosage 00:00:00 1 HEP B, Adult Dosage 1993 Completed NPI:1 [id number] 00:00:00 1 Hep B, Adol or Pedi 1993 Completed NPI:1 [id number] Dosage 00:00:00 1 HEP B, Adult Dosage 1993 Completed NPI:1 [id number] 00:00:00 1 Hep B, Adol or Pedi 1993 Completed NPI:1 [id number] Dosage 00:00:00 1 HEP B, Adult Dosage 1993 Completed NPI:1 [id number] 00:00:00 1 HEP B, Adult Dosage 1993 Completed NPI:1 [id number] 00:00:00 1 Hep B, Adol or Pedi 1993 Completed NPI:1 [id number] Dosage 00:00:00 1 HEP B, Adult Dosage 1993 Completed NPI:1 [id number] 00:00:00 1 Hep B, Adol or Pedi 1993 Completed NPI:1 [id number] Dosage 00:00:00 1 HEP B, Adult Dosage 1993 Completed NPI:1 [id number] 00:00:00 1 Hep B, Adol or Pedi 1993 Completed NPI:1 [id number] Dosage 00:00:00 1 HEP B, Adult Dosage 1993 Completed NPI:1 [id number] 00:00:00 1 Hep B, Adol or Pedi 1993 Completed NPI:1 [id number] Dosage 00:00:00 1 Hep B, Adol or Pedi 1993 Completed NPI:1 [id number] Dosage 00:00:00 1 HEP B, Adult Dosage 1993 Completed NPI:1 [id number] 00:00:00 1 Hep B, Adol or Pedi 1993 Completed NPI:1 [id number] Dosage 00:00:00 1 HEP B, Adult Dosage 1993 Completed NPI:1 [id number] 00:00:00 1 Hep B, Adol or Pedi 1993 Completed NPI:1 [id number] Dosage 00:00:00 1 HEP B, Adult Dosage 1993 Completed NPI:1 [id number] 00:00:00 1 Hep B, Adol or Pedi 1993 Completed NPI:1 [id number] Dosage 00:00:00 1 HEP B, Adult Dosage 1993 Completed NPI:1 [id number] 00:00:00 1 Hep B, Adol or Pedi 1993 Completed NPI:1 [id number] Dosage 00:00:00 1 HEP B, Adult Dosage 1993 Completed NPI:1 [id number] 00:00:00 1 Hep B, Adol or Pedi 1993 Completed NPI:1 [id number] Dosage 00:00:00 1 HEP B, Adult Dosage 1993 Completed NPI:1 [id number] 00:00:00 1 Hep B, Adol or Pedi 1993 Completed NPI:1 [id number] Dosage 00:00:00 1 HEP B, Adult Dosage 1993 Completed NPI:1 [id number] 00:00:00 1 Hep B, Adol or Pedi 1993 Completed NPI:1 [id number] Dosage 00:00:00 1 HEP B, Adult Dosage 1993 Completed NPI:1 [id number] 00:00:00 1 Hep B, Adol or Pedi 1993 Completed NPI:1 [id number] Dosage 00:00:00 1 HEP B, Adult Dosage 1993 Completed NPI:1 [id number] 00:00:00 1 Hep B, Adol or Pedi 1993 Completed NPI:1 [id number] Dosage 00:00:00 1 HEP B, Adult Dosage 1993 Completed NPI:1 [id number] 00:00:00 1 Hep B, Adol or Pedi 1993 Completed NPI:1 [id number] Dosage 00:00:00 1 HEP B, Adult Dosage 1993 Completed NPI:1 [id number] 00:00:00 1 Hep B, Adol or Pedi 1993 Completed NPI:1 [id number] Dosage 00:00:00 1 HEP B, Adult Dosage 1993 Completed NPI:1 [id number] 00:00:00 1 Hep B, Adol or Pedi 1993 Completed NPI:1 [id number] Dosage 00:00:00 1 HEP B, Adult Dosage 1993 Completed NPI:1 [id number] 00:00:00 1 Hep B, Adol or Pedi 1993 Completed NPI:1 [id number] Dosage 00:00:00 1 HEP B, Adult Dosage 1993 Completed NPI:1 [id number] 00:00:00 1 Hep B, Adol or Pedi 1993 Completed NPI:1 [id number] Dosage 00:00:00 1 HEP B, Adult Dosage 1993 Completed NPI:1 [id number] 00:00:00 1 Hep B, Adol or Pedi 1993 Completed NPI:1 [id number] Dosage 00:00:00 1 HEP B, Adult Dosage 1993 Completed NPI:1 [id number] 00:00:00 1 Hep B, Adol or Pedi 1993 Completed NPI:1 [id number] Dosage 00:00:00 1 HEP B, Adult Dosage 1993 Completed NPI:1 [id number] 00:00:00 1 Vital Signs Vital Name Observation Time Observation Value Comments Source Systolic blood pressure 2021-08-22 19:59:00 123 mm[Hg] Diastolic blood 2021-08-22 19:59:00 80 mm[Hg] NPI:1 [id number] pressure Heart rate 2021-08-22 19:59:00 63 /min NPI:1831 [id number] Body temperature 2021-08-22 19:59:00 36.67 Katt Respiratory rate 2021-08-22 19:59:00 18 /min Body height 2021-08-22 19:59:00 157.5 cm NPI:1831 337316 Body weight 2021-08-22 19:59:00 98.431 kg NPI:1831 584425 BMI 2021-08-22 19:59:00 39.69 kg/m2 NPI:1831 247709 Systolic blood pressure 2021-08-08 14:33:00 126 mm[Hg] Diastolic blood 2021-08-08 14:33:00 80 mm[Hg] NPI:1 [id number] pressure Heart rate 2021-08-08 14:33:00 60 /min NPI:1831 [id number] Body temperature 2021-08-08 14:33:00 37.06 Katt Respiratory rate 2021-08-08 14:33:00 20 /min Body height 2021-08-08 14:33:00 157.5 cm NPI:1831 646515 Body weight 2021-08-08 14:33:00 99.156 kg NPI:1831 857156 BMI 2021-08-08 14:33:00 39.98 kg/m2 NPI:1831 733931 Oxygen saturation in 2021-08-08 14:33:00 100 /min Arterial blood by Pulse oximetry Systolic blood pressure 2021-07-05 14:44:00 146 mm[Hg] Diastolic blood 2021-07-05 14:44:00 74 mm[Hg] NPI:1 [id number] pressure Heart rate 2021-07-05 14:44:00 72 /min NPI:1831 837740 Body temperature 2021-07-05 14:44:00 36.44 Katt Respiratory rate 2021-07-05 14:44:00 20 /min Body weight 2021-07-05 14:44:00 103.375 kg NPI:1831 635560 BMI 2021-07-05 14:44:00 41.68 kg/m2 NPI:1831 128519 Oxygen saturation in 2021-07-05 14:44:00 99 /min Arterial blood by Pulse oximetry Systolic blood pressure 2021-06-30 23:00:00 109 mm[Hg] Diastolic blood 2021-06-30 23:00:00 55 mm[Hg] NPI:1 [id number] pressure Respiratory rate 2021-06-30 23:00:00 18 /min Oxygen saturation in 2021-06-30 23:00:00 99 /min Arterial blood by Pulse oximetry Heart rate 2021-06-30 21:30:00 65 /min NPI:1831 [id number] Body temperature 2021-06-30 19:43:00 37.06 Katt Body weight 2021-06-30 19:43:00 118.842 kg NPI:1831 283105 BMI 2021-06-30 19:43:00 47.92 kg/m2 NPI:1831 105388 Systolic blood pressure 2021-03-23 00:00:00 138 mm[Hg] Diastolic blood 2021-03-23 00:00:00 86 mm[Hg] NPI:1 [id number] pressure Heart rate 2021-03-23 00:00:00 78 /min NPI:1831 138780 Respiratory rate 2021-03-23 00:00:00 15 /min Oxygen saturation in 2021-03-23 00:00:00 100 /min Arterial blood by Pulse oximetry Body temperature 2021-03-22 21:53:00 36.83 Katt Body weight 2021-03-22 21:53:00 118.842 kg NPI:1831 [id number] BMI 2021-03-22 21:53:00 47.92 kg/m2 NPI:1831 [id number] Body weight 2021-01-19 17:59:00 118.842 kg NPI:1831 [id number] BMI 2021-01-19 17:59:00 47.92 kg/m2 NPI:1831 240389 Systolic blood pressure 2021-01-19 17:55:00 140 mm[Hg] Diastolic blood 2021-01-19 17:55:00 70 mm[Hg] NPI:1 [id number] pressure Heart rate 2021-01-19 17:55:00 78 /min NPI:1831 620406 Respiratory rate 2021-01-19 17:55:00 18 /min Oxygen saturation in 2021-01-19 17:55:00 100 /min Arterial blood by Pulse oximetry Body temperature 2021-01-19 15:37:00 37.06 Katt Systolic blood pressure 2020-10-15 15:29:00 105 mm[Hg] Diastolic blood 2020-10-15 15:29:00 70 mm[Hg] NPI:1 [id number] pressure Heart rate 2020-10-15 15:29:00 89 /min NPI:1831 [id number] Body temperature 2020-10-15 15:29:00 36.89 Katt Respiratory rate 2020-10-15 15:29:00 18 /min Body height 2020-10-15 15:29:00 157.5 cm NPI:1831 410499 Body weight 2020-10-15 15:29:00 125.193 kg NPI:1831 189363 BMI 2020-10-15 15:29:00 50.48 kg/m2 NPI:1831 943913 Systolic blood pressure 2020-08-09 15:40:00 154 mm[Hg] Diastolic blood 2020-08-09 15:40:00 88 mm[Hg] NPI:1 [id number] pressure Heart rate 2020-08-09 15:40:00 70 /min NPI:1831 239622 Body temperature 2020-08-09 15:40:00 37.11 Katt Respiratory rate 2020-08-09 15:40:00 18 /min Body weight 2020-08-09 15:40:00 126.1 kg NPI:1831 804707 BMI 2020-08-09 15:40:00 49.25 kg/m2 NPI:1831 163238 Oxygen saturation in 2020-08-09 15:40:00 100 /min Arterial blood by Pulse oximetry Systolic blood pressure 2020-07-08 14:40:00 126 mm[Hg] Diastolic blood 2020-07-08 14:40:00 82 mm[Hg] NPI:1 [id number] pressure Heart rate 2020-07-08 14:40:00 107 /min NPI:1831 531474 Body temperature 2020-07-08 14:40:00 35.94 Katt Body height 2020-07-08 14:40:00 160 cm NPI:1831 253104 Body weight 2020-07-08 14:40:00 126.236 kg NPI:1831 244335 BMI 2020-07-08 14:40:00 49.30 kg/m2 NPI:1831 910320 Oxygen saturation in 2020-07-08 14:40:00 96 /min Arterial blood by Pulse oximetry Systolic blood pressure 2019-10-16 18:20:00 108 mm[Hg] Diastolic blood 2019-10-16 18:20:00 64 mm[Hg] NPI:1 [id number] pressure Heart rate 2019-10-16 18:20:00 81 /min NPI:1831 405611 Body temperature 2019-10-16 18:20:00 36.83 Katt Respiratory rate 2019-10-16 18:20:00 18 /min Body height 2019-10-16 18:20:00 157.5 cm NPI:1831 770622 Body weight 2019-10-16 18:20:00 120.657 kg NPI:1831 363137 BMI 2019-10-16 18:20:00 48.65 kg/m2 NPI:1831 356271 Systolic blood pressure 2019-10-16 18:20:00 108 mm[Hg] Diastolic blood 2019-10-16 18:20:00 64 mm[Hg] NPI:1 [id number] pressure Heart rate 2019-10-16 18:20:00 81 /min NPI:1831 689435 Body temperature 2019-10-16 18:20:00 36.83 Katt Respiratory rate 2019-10-16 18:20:00 18 /min Body height 2019-10-16 18:20:00 157.5 cm NPI:1831 427060 Body weight 2019-10-16 18:20:00 120.657 kg NPI:1831 137326 BMI 2019-10-16 18:20:00 48.65 kg/m2 NPI:1831 811603 Systolic blood pressure 2019-09-14 13:10:00 120 mm[Hg] Diastolic blood 2019-09-14 13:10:00 81 mm[Hg] NPI:1 [id number] pressure Heart rate 2019-09-14 13:10:00 73 /min NPI:1831 935433 Body temperature 2019-09-14 13:10:00 36.78 Katt Respiratory rate 2019-09-14 13:10:00 18 /min Body weight 2019-09-14 13:10:00 123.378 kg NPI:1831 012101 BMI 2019-09-14 13:10:00 49.75 kg/m2 NPI:1831 [id number] Systolic blood pressure 2019-06-23 14:22:00 120 mm[Hg] Diastolic blood 2019-06-23 14:22:00 83 mm[Hg] NPI:1 [id number] pressure Heart rate 2019-06-23 14:22:00 75 /min NPI:1831 531899 Body temperature 2019-06-23 14:22:00 36.78 Katt Respiratory rate 2019-06-23 14:22:00 18 /min Body height 2019-06-23 14:22:00 157.5 cm NPI:1831 [id number] Body weight 2019-06-23 14:22:00 117.028 kg NPI:[id number] BMI 2019-06-23 14:22:00 47.19 kg/m2 NPI:[id number] Procedures Procedure Date / Time Performed Performing Clinician [facility] e US FIRST 2021-08-19 20:34:07 Ness Schulte NPI:[id number] TRIMESTER LESS THAN 14 WEEKS WITH TRANSVAGINAL US OB TRANSVAGINAL 2021-08-08 19:40:14 Ness Schulte NPI:[id number] AUTHORIZATION TO RELEASE 2021-08-08 05:01:00 Doctor Unassigned, No PHI TO [facility] Name POCT TEST 2021-08-08 00:00:00 Ness Schulte NPI:[id number] POCT URINALYSIS W/O 2021-08-08 00:00:00 Ness Schulte NPI:[id number] SPECIFIC GRAVITY CONSENT/REFUSAL FOR 2021-07-05 14:32:40 Doctor Unassigned, No BUSINESS PROCESS LEAD I:[id number] DIAGNOSIS AND TREATMENT Name POCT TEST 2021-06-30 21:46:00 Russel Isabel NPI:[id number] TROPONIN I 2021-06-30 20:19:00 Russel Isabel NPI:[id number] COMP. METABOLIC PANEL 2021-06-30 20:19:00 Russel Isabel NPI:[id number] ([id number]) CBC WITH DIFF 2021-06-30 20:19:00 Russel Isabel NPI:[id number] N-TERMINAL PRO-BNP 2021-06-30 20:19:00 Russel Isabel NPI:[id number] CONSENT/REFUSAL FOR 2021-06-30 19:38:41 Doctor Unassigned, No BUSINESS PROCESS LEAD I:[id number] DIAGNOSIS AND TREATMENT Name NOTICE OF PRIVACY 2021-06-30 19:38:26 Doctor Unassigned, No PRACTICES Name URINALYSIS 2021-03-22 23:08:00 Yoko Mcghee NPI:[id number] LIPASE 2021-03-22 23:03:00 Yoko Mcghee NPI:[id number] TROPONIN I 2021-03-22 23:03:00 Yoko Mcghee NPI:[id number] COMP. METABOLIC PANEL 2021-03-22 23:03:00 Yoko Mcghee NPI:18 [id number] ([id number]) XR CHEST 1 VW 2021-03-22 22:52:00 Yoko Mcghee NPI:[id number] CBC WITH DIFF 2021-03-22 22:35:00 Yoko Mcghee NPI:[id number] COVID-19 (ID NOW RAPID 2021-03-22 22:27:00 Yoko Mcghee NPI:1 [id number] TESTING) CONSENT/REFUSAL FOR 2021-03-22 21:47:13 Doctor Unassigned, No BUSINESS PROCESS LEAD I:[id number] DIAGNOSIS AND TREATMENT Name CONSENT/REFUSAL FOR 2021-01-19 15:35:34 Doctor Unassigned, No BUSINESS PROCESS LEAD I:[id number] DIAGNOSIS AND TREATMENT Name ASSIGNMENT OF BENEFITS 2020-10-15 15:11:10 Doctor Unassigned, No Name COVID-19 (ID NOW RAPID 2020-08-09 16:57:00 Candy Soria NPI:1 [id number] TESTING) XR CHEST 1 VW 2020-08-09 16:28:25 Candy Soria NPI:[id number] POCT TEST 2020-08-09 16:07:00 Candy Soria NPI:[id number] CONSENT/REFUSAL FOR 2020-08-09 15:32:17 Doctor Unassigned, No BUSINESS PROCESS LEAD I:[id number] DIAGNOSIS AND TREATMENT Name AUTHORIZATION FOR RELEASE 2020-04-29 06:01:00 Doctor Unassigned, No OF PHI Name ASSIGNMENT OF BENEFITS 2020-03-27 14:44:13 Doctor Unassigned, No Name REFERRAL- REQUEST/RESPONSE 2020 06:01:00 Doctor Unassigned , No Name ASSIGNMENT OF BENEFITS 2019-09-14 12:57:38 Doctor Unassigned, No Name POCT TEST 2019-09-14 00:00:00 Emilie Bernabe NPI:[id number] POCT TEST 2019-06-23 00:00:00 Emilie Bernabe NPI:[id number] CONSENT 2019-05-04 06:01:00 Doctor Unassigned, No NPI:1 [id number] Name Encounters Start End Encounter Admission Attending Care Care Encounter Source Date/Time Date/Time Type Type Clinicians Facility Department ID 2021-02-18 Emergency [facility] [id number] NPI:183 03:24:03 [id number] 8863-10-31 Emergency [facility] [id number] NPI:183 14:52:25 [id number] 2205-07-06 2021-10-22 Outpatient R EMANUEL [facility] [id number] 7Q-20 NPI:183 15:00:00 15:00:00 ION [id number] 2021-08-22 2021-08-22 Outpatient R ERIS [facility] [id number] NPI:183 14:45:00 15:15:39 [id number] 1 2021-08-22 2021-08-22 Routine [facility] 1.2.840.114 [id number] NPI:183 14:45:00 15:15:39 Cam DENISHA 350.1.13.10 1 [id number] Visit [facility] 4.2.7.2.686 [place] [address] [id number] [facility] 134 2021-08-22 2021-08-22 Outpatient R ERIS [facility] 07602 7Q-20 NPI:183 14:45:00 14:45:00 [id number] 1 2021-08-22 2021-08-22 Telephone [facility] 1.2.840.114 [id number] NPI:183 00:00:00 00:00:00 Cam DENISHA 350.1.13.10 13 [id number] [facility] 4.2.7.2.686 HEALTH [id number] [facility] 134 2021-08-19 2021-08-19 Outpatient R ERIS [facility] [id number] NPI:183 14:49:56 23:59:00 [id number] 1 2021-08-19 2021-08-19 [facility] 1.2.840.114 [id number] NPI:183 14:49:56 23:59:00 Encounter Armando ARTEAGA 350.1.13.10 [id number] [place] 4.2.7.2.686 [place] [id number] [id number] 2021-08-19 2021-08-19 Outpatient R ERIS [facility] 87111 7Q-20 NPI:183 00:00:00 00:00:00 [id number] 1 2021-08-12 2021-08-12 [facility] 1.2.840.114 [id number] NPI:183 00:00:00 00:00:00 Management Erika DENNY 350.1.13.10 [id number] WOM[facility]'S 4.2.7.2.686 [facility] [id number] [place] [address] 2021-08-08 2021-08-08 Outpatient R ERIS [facility] [id number] NPI:183 09:00:00 10:25:50 [id number] 1 2021-08-08 2021-08-08 [facility] 1.2.840.114 [id number] NPI:183 09:00:00 10:25:50 Armando DENNY 350.1.13.10 1 [id number] Visit [facility]'S 4.2.7.2.686 [facility] [id number] [place] [address] 2021-08-08 2021-08-08 Outpatient R ERIS [facility] 83666 7Q-20 NPI:183 09:00:00 09:00:00 [id number] 1 2021-08-08 2021-08-08 Refill Ness Schulte [facility] 1.2.840.114 [id number] NPI:183 00:00:00 00:00:00 Cam DENISHA 350.1.13.10 13 [id number] WOMEN'S 4.2.7.2.686 HEALTH [id number] [facility] 134 2021-08-08 2021-08-08 Orders Doctor VANI 1.2.840.114 [id number] NPI:183 00:00:00 00:00:00 Only UnassignedRAKEL 350.1.13.10 [id number] [place] [facility] 4.2.7.2.686 [id number] 009 2021-08-01 2021-08-01 Telephone Ness Schulte [facility] 1.2.840.114 [id number] NPI:183 00:00:00 00:00:00 Armando ARTEAGA 350.1.13.10 1 [id number] [place] 4.2.7.2.[address] [id number] 2021-07-23 2021-07-23 Laboratory Only, Ang Db Test [facility] 1.2.8 40.114 [id number] NPI:183 09:30:00 09:45:00 Only Suzette Dyre [facility] 350.1.13.10 [id number] [facility] 4.2.7.2.686 [place]A [id number] [place] [address] MEDICAL OFFICE BUILDING 2021-07-23 2021-07-23 Outpatient R GOMEZ [facility] [id number] 2597 NPI:183 09:30:00 09:33:55 SUZETTE 00777 81 2021-07-23 2021-07-23 Outpatient R [facility] [id number] -20 NPI:183 09:30:00 09:30:00 [id number] 1 2021-07-09 2021-07-09 Outpatient SHARRON, IRIS EILEEN 7502 MHBL 11:30:00 23:59:00 OBONORUMA 2021-07-05 2021-07-05 Emergency X ZEESHAN K [facility] ERT [id number] NPI:183 09:46:00 11:02:00 [id number] 1 2021-07-05 2021-07-05 Emergency Zeeshan, Candy [facility] 1.2.840.114 [id number] NPI:183 09:46:00 11:02:00 Mónica ARTEAGA 350.1.13.10 1 [id number] [place] 4.2.7.2.686 [place] [id number] 084 2021-06-30 2021-06-30 Emergency X ISABEL, [facility] ERT [id number] NPI:183 14:46:00 18:30:00 RUSSEL [id number] 1 2021-06-30 2021-06-30 [facility] 1.2.236.208 [id number] 0161 NPI:183 14:46:00 18:30:00 Russel ARTEAGA 350.1.13.10 1 [id number] [place] 4.2.7.2.686 [place] [id number] 084 2021-06-30 2021-06-30 Orders Doctor VANI 1.2.840.114 [id number] NPI:183 00:00:00 00:00:00 Only Unassigned, RAKEL 350.1.13.10 [id number] [place] [facility] 4.2.7.2.686 [id number] 009 2021-05-21 2021-05-21 Laboratory Only, Ang Db Test [facility] 1.2.8 40.114 [id number] NPI:183 12:15:00 12:30:00 [facility] 350.1.13.10 [id number] [place] 4.2.7.2.686 [place] [id number] [place] [address] MEDICAL OFFICE BUILDING 2021-05-21 2021-05-21 Outpatient R [facility] [id number] -20 NPI:183 12:15:00 12:15:00 [id number] 1 2021-05-21 2021-05-21 Outpatient R RAO [facility] [id number] NPI:183 12:15:00 12:10:37 RANIA [id number] 1 2021-03-22 2021-03-22 Emergency X OLIVIA [facility] ERT [id number] NPI:183 15:56:00 19:03:00 YOKO [id number] 1 2021-03-22 2021-03-22 Emergency France Ken [facility] 1.2.8 40.114 [id number] NPI:183 15:56:00 19:03:00 Yoko Mcghee 350.1.13.10 [id number] [place] 4.2.7.2.686 [place] [id number] 084 2021-01-31 2021-01-31 Outpatient CLEO MCDERMOTTSE EILEEN 9600 MH 00:00:00 00:00:00 OBONORUMA Sout [facility] 2021-01-19 2021-01-19 Emergency [facility] 1.2.840.114 [id number] NPI:183 10:40:00 13:32:00 Nagi Arteaga 350.1.13.10 1 [id number] [place] 4.2.7.2.686 [place] [id number] 084 2021-01-13 2021-01-14 Inpatient [facility] [id number] 715 [place] 00:00:00 00:00:00 OBONORUMA [address] 2021-01-09 2021-01-09 [facility] [id number] 9663 [place] 00:00:00 00:00:00 OBONORUMA [address] 2020-12-07 2020-12-07 Letter VANI Zhou 1.2.840.114 [id number] NPI:183 00:00:00 00:00:00 (Out) Sumaya [place] 350.1.13.10 13 [id number] [place] [address].2.7.2.686 [id number] 019 2020-12-05 2020-12-05 Outpatient R IFEANYI [facility] [id number] NPI:183 18:00:00 18:00:00 HERNÁN 710182 1 2020-12-05 2020-12-05 Outpatient R [facility] [id number] -20 NPI:183 17:00:00 17:00:00 [id number] 1 2020-11-22 2020-11-22 Outpatient CLEO MCDERMOTTSE EILEEN 7501 MH 07:00:00 23:59:00 [facility] 2020-11-04 2020-11-04 Outpatient EMANUEL [facility] [id number] 7Q-20 NPI:183 13:30:00 13:30:00 ION [id number] 1 2020-10-15 2020-10-15 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 Pattie, Adc Lab Main [facility] 1.2.8 40.114 [id number] NPI:183 11:32:58 11:47:58 Visit Ion Guajardo 350.1.13.10 [id number] [place] 4.2.7.2.686 Professio [id number] [facility] 353 [facility] 2020-10-15 2020-10-15 [facility] 1.2.040.679 [id number] 6829 NPI:183 10:12:05 11:10:20 Visit Ion Arteaga 350.1.13.10 1 [id number] [place] 4.2.7.2.686 Professio [id number] [facility] 134 [facility] 2020-10-15 2020-10-15 Outpatient R EMANUEL [facility] 44985 7Q-20 NPI:183 10:30:00 10:30:00 ION [id number] 1 2020-10-15 2020-10-15 Outpatient R EMANUEL [facility] 80656 18593 NPI:183 10:30:00 10:30:00 ION [id number] 1 2020-10-15 2020-10-15 Orders Doctor VANI 1.2.840.114 [id number] NPI:183 00:00:00 00:00:00 Only Unassigned, RAKEL 350.1.13.10 [id number] [place] [facility] 4.2.7.2.686 [id number] 009 2020-08-28 2020-08-28 Outpatient EKSHRUTHISE, MHBL EILEEN 7500 MHBL 05:12:00 08:46:00 OBONORUMA 2020-08-26 2020-08-26 [facility] 1.2.840.114 [id number] NPI:183 00:00:00 00:00:00 Ion Arteaga 350.1.13.10 [address] [id number] [place] 4.2.7.2.686 Professio [phone] 2020-08-26 2020-08-26 Patient Emanuel [facility] 1.2.221.497 [id number] 6223 NPI:183 00:00:00 00:00:00 Secure Msg Ion Arteaga 350.1.13.10 [id number] [place] 4.2.7.2.686 Professio [phone] [address] 2020-08-09 2020-08-09 Emergency Zeeshan, K [facility] 1.2.840.114 [id number] NPI:183 10:43:00 12:46:00 Mónica Arteaga 350.1.13.10 1 [id number] [place] 4.2.7.2.686 [place] [id number] 084 2020-08-09 2020-08-09 Orders Doctor VANI 1.2.840.114 [id number] NPI:183 00:00:00 00:00:00 Only Unassigned, RAKEL 350.1.13.10 [id number] [place] [facility] 4.2.7.2.686 [id number] 009 2020-07-10 2020-07-10 Telephone [facility] 1.2.003.627 [id number] 3440 NPI:183 00:00:00 00:00:00 [facility] 350.1.13.10 1 [id number] [place] 4.2.7.2.686 [place] [phone] [place] 609702 Office Building 2020-07-09 2020-07-09 Patient Freddie [facility] 1.2.840.114 [id number] 49 NPI:183 00:00:00 00:00:00 Outreach Feliciano [facility] 350.1.13.10 1 [id number] Jacob [facility] 4.2.7.2.686 [place] [id number] 388 2020-07-08 2020-07-08 Office [facility] 1.2.840.114 [id number] 14 NPI:183 09:32:02 14:42:59 Visit [facility] 350.1.13.10 1 [id number] [place] 4.2.7.2.686 [place] [id number] Medical 092 Office Building 2020-07-08 2020-07-08 Outpatient YOSI [facility] [id number] -20 NPI:183 09:00:00 09:00:00 [facility] [id number] 81 2020-07-08 2020-07-08 Outpatient R YOSI [facility] [id number] NPI:183 09:00:00 09:00:00 [facility] [id number] 81 2020-05-28 2020-05-28 Outpatient R [facility] [id number] -20 NPI:183 13:00:00 13:00:00 [id number] 1 2020-05-28 2020-05-28 Outpatient R [facility] [id number] 589 NPI:183 13:00:00 13:00:00 [id number] 1 2020-04-29 2020-04-29 Orders Doctor VANI Yadav2.840.114 [id number] NPI:183 00:00:00 00:00:00 Only Unassigned, RAKEL 350.1.13.10 [id number] [place] [facility] 4.2.7.2.686 [id number] 009 2020-03-27 2020-03-27 Outpatient R [facility] [id number] -20 NPI:183 10:00:00 10:00:00 [id number] 1 2020-03-27 2020-03-27 Outpatient R LATASHA, [facility] [id number] NPI:183 10:00:00 10:00:00 SENDIL [id number] 1 2020-03-27 2020-03-27 Orders Doctor VANI Yadav2.840.114 [id number] NPI:183 00:00:00 00:00:00 Only Unassigned, RAKEL 350.1.13.10 [id number] [place] [facility] 4.2.7.2.686 [id number] 009 2020 2020 Orders Doctor VANI Yadav2.840.114 [id number] NPI:183 00:00:00 00:00:00 Only Unassigned, RAKEL 350.1.13.10 [id number] [place] [facility] 4.2.7.2.686 [id number] 009 2020-03-13 2020-03-13 Telephone Yosi [facility] 1.2.044.909 [id number] 8606 NPI:183 00:00:00 00:00:00 [facility] 350.1.13.10 1 [id number] [place] 4.2.7.2.686 [place] [phone] [facility] 092 Office Building 2019-10-20 2019-10-20 Laboratory Lab, [facility] Fam Pob I [facility] 1.2. 840.114 [id number] NPI:183 15:52:57 16:12:57 Only Ion Guajardo [facility] 350.1.13.10 [id number] [place] 4.2.7.2.686 Professio [phone] [place] [address] Office Building One 2019-10-20 2019-10-20 Laboratory Lab, [facility] 1.2.840.114 [id number] 15:52:57 16:12:57 Only [facility] I Health 350.1.13.10 [place] 4.2.7.2.686 Professio [phone] [place] [address] Office Building One 2019-10-20 2019-10-20 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 2, [facility] Lab [facility] 1.2.840.114 [id number] NPI:183 13:16:08 13:31:08 Visit Ion Guajardo [place] 350.1.13.10 [id number] [place] 4.2.7.2.686 Professio [phone] [address] 2019-10-20 2019-10-20 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 2, [facility] Lab [facility] 1.2.840.114 [id number] 13:16:08 13:31:08 Visit [place] 350.1.13.10 [place] 4.2.7.2.686 Professio [phone] [address] 2019-10-20 2019-10-20 Outpatient R [facility] [id number] -20 NPI:183 13:00:00 13:00:00 [id number] 1 2019-10-20 2019-10-20 Outpatient R [facility] [id number] NPI:183 13:00:00 13:00:00 [id number] 2019-10-17 2019-10-17 Outpatient R [facility] [id number] -20 NPI:183 13:15:00 13:15:00 [id number] 1 2019-10-17 2019-10-17 Outpatient R [facility] [id number] NPI:183 13:15:00 13:15:00 [id number] 1 2019-10-16 2019-10-16 Office Emanuel [facility] 1.2.605.712 7522 0777 NPI:183 13:07:05 13:37:05 Visit Ion Arteaga 350.1.13.10 1 [id number] [place] 4.2.7.2.686 Professio [phone] [address] 2019-10-16 2019-10-16 [facility] 1.2.625.864 [id number] 0777 13:07:05 13:37:05 Visit Ion Arteaga 350.1.13.10 [place] 4.2.7.2.686 Professio [phone] [address] 2019-10-16 2019-10-16 [facility] 14215 7Q-20 NPI:183 13:30:00 13:30:00 ION [id number] 1 2019-10-16 2019-10-16 [facility] [id number] 01452 NPI:183 13:30:00 13:30:00 ION [id number] 1 2019-09-14 2019-09-14 Office [facility] 1.2.840.114 [id number] NPI:183 07:58:29 08:40:34 Visit Emilieedwin Arteaga 350.1.13.10 1 [id number] [place] 4.2.7.2.686 Professio [phone] [address] 2019-09-14 2019-09-14 [facility] 701 507Q-20 NPI:183 08:30:00 08:30:00 EMILIE [id number] 1 2019-09-14 2019-09-14 [facility] 826 [id number] NPI:183 08:30:00 08:30:00 EMILIE [id number] 1 2019-09-14 2019-09-14 Orders Doctor VANI 1.2.840.114 [id number] NPI:183 00:00:00 00:00:00 Only Unassigned, RAKEL 350.1.13.10 [id number] [place] [facility] 4.2.7.2.686 [id number] 009 2019-07-31 2019-07-31 Telephone [facility] 1.2.840.114 [id number] NPI:183 00:00:00 00:00:00 Emilie Arteaga 350.1.13.10 1 [id number] [place] 4.2.7.2.686 Professio [phone] [address] 2019-07-31 2019-07-31 Patient [facility] 1.2.840.114 75 [id number] NPI:183 00:00:00 00:00:00 Secure Msg Emilie Arteaga 350.1.13.10 [id number] [place] 4.2.7.2.686 Professio [phone] [address] 2019-07-27 2019-07-27 Outpatient R [facility] 701 507Q-20 NPI:183 10:00:00 10:00:00 EMILIE [id number] 1 2019-07-27 2019-07-27 Outpatient R [facility] 659 [id number] NPI:183 10:00:00 10:00:00 EMILIE [id number] 1 2019-07-27 2019-07-27 Telemedici [facility] 1.2.840.114 [id number] NPI:183 08:16:01 08:46:01 ne Visit Emilie Arteaga 350.1.13.10 [id number] [place] 4.2.7.2.686 Professio [phone] [address] 2019-07-03 2019-07-03 Outpatient R [facility] 97036 36920 NPI:183 09:00:00 09:00:00 ION [id number] 1 2019-06-23 2019-06-23 Office [facility] 1.2.840.114 [id number] NPI:183 08:08:20 14:15:55 Visit Emilie Arteaga 350.1.13.10 1 [id number] [place] 4.2.7.2.686 Professio [phone] [address] 2019-06-23 2019-06-23 Outpatient R [facility] 701 507Q-20 NPI:183 08:30:00 08:30:00 EMILIE 725004 [id number] 1 2019-06-23 2019-06-23 Outpatient R [facility] [id number] NPI:183 08:30:00 08:30:00 EMILIE [id number] 1 2019-06-19 2019-06-19 Patient [facility] 1.2.840.114 [id number] NPI:183 00:00:00 00:00:00 Secure Msg Emilie Arteaga 350.1.13.10 [id number] [place] 4.2.7.2.686 Professio [phone] [address] 2019-05-04 2019-05-04 Office [facility] 1.2.840.114 73 [id number] NPI:183 14:09:43 15:25:49 Visit Emilie Arteaga 350.1.13.10 1 [id number] [place] 4.2.7.2.686 Professio [phone] [address] 2019-05-04 2019-05-04 Outpatient R [facility] [id number] NPI:183 14:00:00 15:25:49 EMILIE [id number] 1 2019-05-04 2019-05-04 Orders Doctor VANI 1.2.840.114 [id number] NPI:183 00:00:00 00:00:00 Only Unassigned, RAKEL 350.1.13.10 [id number] [place] [facility] 4.2.7.2.686 [id number] 009 Results Test Description Test Time Test Comments Results Result Comments Source POCT URINALYSIS W/O SPECIFIC GRAVITY 2021-08-09 02:41:00 Test Item Value Reference Range Interpretation Comme nts POCT PH U (test code = 3254) na 5-8 POCT U LEUK EST (test code = 3263) na Negative - Negative POCT U NIT (test code = 3262) na Negative - Negative POCT U PROT (test code = 3259) neg Negative - Negative POCT U GLU (test code = 3256) neg Negative - Negative POCT U KETONE (test code = 3258) na Negative - Negative POCT U BLD (test code = 3257) na Negative - Negative NPI:[id number] 02:40:00 Test Item Value Reference Range Interpretation Comments POCT PREG (test code = 1605) Positive On board controls acceptable with C Yes Line (test code = 3574) POCT PREG LOT # (test code = 3575) POCT PREG TEST DATE (test code = 3576) NPI:[id number] 21:46:00 Test Item Value Reference Range Interpretation Comments POCT PREG (test code = 1605) neg On board controls acceptable with present C Line (test code = 3574) POCT PREG LOT # (test code = 3575) [id number] POCT PREG TEST DATE (test 06/16/22 code = 3576) Lab Interpretation (test code = Normal 60683-9) NPI:[id number] 21:21:09 Test Item Value Reference Interpretation Comments Range TROPONIN I (test 0.003 ng/mL See_Comment [Automated code = [id number]) message] The system which generated this result transmitted reference range : <=0.034. The reference range was not used to interpret this result as normal/abnormal . JAKE (test code = Reference (Normal) JAKE) Range (defined by the 99th percentile reference limit): <= 0.034 ng/mL Note: Cardiac troponin begins to rise 3-4 hours after the onset of ischemia. Repeat in 4-6 hours if the sample was drawn within 3-4 hours of the onset of the symptom and found normal. Diagnosis of myocardial injury is made with acute changes in cTn concentrations with at least one serial sample above the 99th percentile upper reference limit (URL), taken together with the patient's clinical presentation. Biotin has been reported to cause a negative bias, interpret results relative to patient's use of biotin. Lab Interpretation Normal (test code = 42737-8) NPI:[id number] 21:18:13 Test Item Value Reference Range Interpretation Comments NT-proBNP (test code 31 pg/mL See_Comment [Autom ated = [id number]) message] The system which generated this result transmitted reference range : <=125. The reference range was not used to interpret this result as normal/abnormal . JAKE (test code = JAKE) Biotin has been reported to cause a negative bias, interpret results relative to patient's use of biotin. Lab Interpretation Normal (test code = 53759-0) NPI:[id number]. METABOLIC PANEL ([id number])2021-06-30 21:08:10 Test Item Value Reference Range Interpretation Comments NA (test code = 137 mmol/L 135-145 9555762564) K (test code = 4.2 mmol/L 3.5-5.0 9472044675) CL (test code = 104 mmol/L 98-108 2039826895) CO2 TOTAL (test code 24 mmol/L 23-31 = 2879262887) AGAP (test code = 2-16 7516452341) BUN (test code = 14 mg/dL 7-23 5796768540) GLUCOSE (test code = 99 mg/dL 70-110 9322001467) CREATININE (test code 0.58 mg/dL 0.50-1.04 = 9989960497) TOTAL BILI (test code 0.5 mg/dL 0.1-1.1 = 9177018429) CALCIUM (test code = 9.0 mg/dL 8.6-10.6 5520643169) T PROTEIN (test code 7.6 g/dL 6.3-8.2 = 7430483281) ALBUMIN (test code = 4.2 g/dL 3.5-5.0 1142102684) ALK PHOS (test code = 68 U/L 34-122 3384230081) ALTv (test code = 15 U/L 5-35 1742-6) AST(SGOT) (test code 23 U/L 13-40 = 2675457029) eGFR (test code = mL/min/1.73m2 9358378464) JAKE (test code = JAKE) Association of Glomerular Filtration Rate (GFR) and Staging of Kidney Disease* + + +- +| GFR (mL/min/1.73 m2) ?| With Kidney Damage ?| ?Without Kidney Damage+ ------+ ----+ ------+| ?>90 ?| ?Stage one ?| ? Normal ?+ -+ + -+| ?60-89 ?| ?Stage two ?| ? Decreased GFR ? + + +- +| ?30-59 ?| ?Stage three ?| ? Stage three ? + + +- +| ?15-29 ?| ?Stage four ? | ? Stage four ?+ -+ + -+| ?<15 (or dialysis) ? ?| ?Stage five ? | ? Stage five ?+ -+ + -+ *Each stage assumes the associated GFR level has been in effect for at least three months. ?Stages 1 to 5, with or without kidney disease, indicate chronic kidney disease. Notes: Determination of stages one and two (with eGFR >59mL/min/1.73 m2) requires estimation of kidney damage for at least three months as defined by structural or functional abnormalities of the kidney, manifested by either:Pathological abnormalities or Markers of kidney damage (including abnormalities in the composition of the blood or urine or abnormalities in imaging tests). NPI:[id number] WITH [id number] 20:29:01 Test Item Value Reference Range Interpretation Comments WBC (test code = See_Comment [Automated message] 6690-2) The system [employer] generated this result transmitted ref erence range: 4.30 - 1 1.10 10*3/?L. The re ference range was not u sed to interpret this result as normal/abnor mal. RBC (test code = See_Comment [Automated message] 789-8) The system [employer] [employer] ([employer]) generated this result transmitted ref erence range: 3.93 - 5 .25 10*6/?L. The re ference range was not u sed to interpret this result as normal/abnor mal. HGB (test code = 11.8 g/dL 11.6-15.0 718-7) HCT (test code = 37.2 % 35.7-45.2 4544-3) MCV (test code = 86.9 fL 80.6-95.5 787-2) MCH (test code = 27.6 pg 25.9-32.8 785-6) MCHC (test code = 31.7 g/dL 31.6-35.1 786-4) RDW-SD (test code 42.5 fL 39.0-49.9 = 90823-5) RDW-CV (test code 13.5 % 12.0-15.5 = 788-0) PLT (test code = See_Comment [Automated message] 777-3) The system whic h generated this result transmitted ref erence range: 166 - 35 8 10*3/?L. The re ference range was not u sed to interpret this result as normal/abnor mal. MPV (test code = 10.8 fL 9.5-12.9 34600-4) NRBC/100 WBC (test See_Comment [Automat ed message] code = 7030374828) The syste m which generated this result transmitted ref erence range: 0.0 - 10 .0 /100 WBCs. The refer ence range was not u sed to interpret this result as normal/abnor mal. NRBC x10^3 (test <0.01 See_Comment [Automated message] code = 3816656715) The syste m which generated this result transmitted ref erence range: 10*3/?L. The reference range was not used to interpr et this result as normal/abnormal . GRAN MAT (NEUT) % 51.4 % (test code = 770-8) IMM GRAN % (test 0.20 % code = 3978274079) LYMPH % (test code 38.0 % = 736-9) MONO % (test code 5.7 % = 5905-5) EOS % (test code = 3.9 % 713-8) BASO % (test code 0.8 % = 706-2) GRAN MAT 4.27 10*3/uL 1.88-7.09 x10^3(ANC) (test code = 6867260456) IMM GRAN x10^3 <0.03 0.00-0.06 (test code = 5096459919) LYMPH x10^3 (test 3.15 10*3/uL 1.32-3.29 code = 731-0) MONO x10^3 (test 0.47 10*3/uL 0.33-0.92 code = 742-7) EOS x10^3 (test 0.32 10*3/uL 0.03-0.39 code = 711-2) BASO x10^3 (test 0.07 10*3/uL 0.01-0.07 code = 704-7) NPI:[id number] [id number] 23:45:09 Test Item Value Reference Interpretation Comments Range TROPONIN I (test 0.001 ng/mL See_Comment [Automated code = 6675927959) message] The system which generated this result transmitted reference range : <=0.034. The reference range was not used to interpret this result as normal/abnormal . AJKE (test code = Reference (Normal) JAKE) Range (defined by the 99th percentile reference limit): <= 0.034 ng/mL Note: Cardiac troponin begins to rise 3-4 hours after the onset of ischemia. Repeat in 4-6 hours if the sample was drawn within 3-4 hours of the onset of the symptom and found normal. Diagnosis of myocardial injury is made with acute changes in cTn concentrations with at least one serial sample above the 99th percentile upper reference limit (URL), taken together with the patient's clinical presentation. Biotin has been reported to cause a negative bias, interpret results relative to patient's use of biotin. Lab Interpretation Normal (test code = 03085-4) NPI:[id number]. METABOLIC PANEL ([id number])2021-03-22 23:34:12 Test Item Value Reference Range Interpretation Comments NA (test code = 140 mmol/L 135-145 8867386292) K (test code = 3.7 mmol/L 3.5-5.0 9292034343) CL (test code = 107 mmol/L 98-108 5736715849) CO2 TOTAL (test code 25 mmol/L 23-31 = 5635683356) AGAP (test code = 2-16 0938349182) BUN (test code = 12 mg/dL 7-23 6477108443) GLUCOSE (test code = 93 mg/dL 70-110 8652910641) CREATININE (test code 0.63 mg/dL 0.50-1.04 = 7121265849) TOTAL BILI (test code 0.5 mg/dL 0.1-1.1 = 2101279926) CALCIUM (test code = 9.6 mg/dL 8.6-10.6 3047023112) T PROTEIN (test code 7.6 g/dL 6.3-8.2 = 8036082170) ALBUMIN (test code = 4.0 g/dL 3.5-5.0 1819017838) ALK PHOS (test code = 74 U/L 34-122 6217748224) ALTv (test code = 21 U/L 5-35 1742-6) AST(SGOT) (test code 24 U/L 13-40 = 4388476381) eGFR (test code = mL/min/1.73m2 6031112917) JAKE (test code = JAKE) Association of Glomerular Filtration Rate (GFR) and Staging of Kidney Disease* + + +- +| GFR (mL/min/1.73 m2) ?| With Kidney Damage ?| ?Without Kidney Damage+ ------+ ----+ ------+| ?>90 ?| ?Stage one ?| ? Normal ?+ -+ + -+| ?60-89 ?| ?Stage two ?| ? Decreased GFR ? + + +- +| ?30-59 ?| ?Stage three ?| ? Stage three ? + + +- +| ?15-29 ?| ?Stage four ? | ? Stage four ?+ -+ + -+| ?<15 (or dialysis) ? ?| ?Stage five ? | ? Stage five ?+ -+ + -+ *Each stage assumes the associated GFR level has been in effect for at least three months. ?Stages 1 to 5, with or without kidney disease, indicate chronic kidney disease. Notes: Determination of stages one and two (with eGFR >59mL/min/1.73 m2) requires estimation of kidney damage for at least three months as defined by structural or functional abnormalities of the kidney, manifested by either:Pathological abnormalities or Markers of kidney damage (including abnormalities in the composition of the blood or urine or abnormalities in imaging tests). NPI:[id number] 23:34:12 Test Item Value Reference Range Interpretation Comments LIPASE (test code = 6790554122) 78 U/L 0-220 Lab Interpretation (test code = Normal 40829-4) NPI:[id number] WITH [id number] 22:44:08 Test Item Value Reference Range Interpretation Comments WBC (test code = See_Comment [Automated 6690-2) message] The sy stem which generated this result transmitted reference range : 4.30 - 11.10 10*3/?L. The reference range was not used to interpret this result as normal/abnormal . RBC (test code = See_Comment [Automated 789-8) message] The sy stem which generated this result transmitted reference range : 3.93 - 5.25 10*6/?L. The reference range was not used to interpret this result as normal/abnormal . HGB (test code = 11.6 g/dL 11.6-15.0 718-7) HCT (test code = 36.8 % 35.7-45.2 4544-3) MCV (test code = 87.6 fL 80.6-95.5 787-2) MCH (test code = 27.6 pg 25.9-32.8 785-6) MCHC (test code = 31.5 g/dL 31.6-35.1 L 786-4) RDW-SD (test code = 42.7 fL 39.0-49.9 22259-9) RDW-CV (test code = 13.4 % 12.0-15.5 788-0) PLT (test code = See_Comment [Automated 777-3) message] The sy stem which generated this result transmitted reference range : 166 - 358 10*3/ ?L. The reference r kevin was not used to interpret this result as normal/abnormal . MPV (test code = 11.1 fL 9.5-12.9 33106-6) NRBC/100 WBC (test See_Comment [Automat ed code = 9948165517) message] The system which generated this result transmitted reference range : 0.0 - 10.0 /100 WBCs. The refer ence range was not u sed to interpret th is result as normal/abnormal . NRBC x10^3 (test code <0.01 See_Comment [Auto mated = 5824644746) message] The s ystem which generated this result transmitted reference range : 10*3/?L. The reference range was not used to interpret this result as normal/abnormal . GRAN MAT (NEUT) % 57.5 % (test code = 770-8) IMM GRAN % (test code 0.50 % = 9311698355) LYMPH % (test code = 31.6 % 736-9) MONO % (test code = 7.5 % 5905-5) EOS % (test code = 2.3 % 713-8) BASO % (test code = 0.6 % 706-2) GRAN MAT x10^3(ANC) 4.74 10*3/uL 1.88-7.09 (test code = 9818973451) IMM GRAN x10^3 (test 0.04 10*3/uL 0.00-0.06 code = 3862436862) LYMPH x10^3 (test code 2.60 10*3/uL 1.32-3.29 = 731-0) MONO x10^3 (test code 0.62 10*3/uL 0.33-0.92 = 742-7) EOS x10^3 (test code = 0.19 10*3/uL 0.03-0.39 711-2) BASO x10^3 (test code 0.05 10*3/uL 0.01-0.07 = 704-7) Lab Interpretation Abnormal (test code = 34402-5) NPI:[id number] (COVID-19) RNA [Presence] in Respiratory specimen by LEX with probe [id number] 17:35:39 Test Item Value Reference Range Interpretation Comments SARS-CoV-2 (COVID-19) RNA Not detected Not-Detected [Presence] in Respiratory specimen by LEX with probe detection (test code = 80948-1) Whether patient is employed in a healthcare setting (test code = 40824-9) Whether the patient has symptoms related to condition of interest (test code = 87369-4) Patient was hospitalized because of this condition (test code = 00318-8) Whether the patient was admitted to intensive care unit (ICU) for condition of interest (test code = 23057-3) Whether patient resides in a congregate care setting (test code = 39107-8) COVID-19 (ID NOW RAPID TESTING)2020-08-09 17:34:25 Test Item Value Reference Range Interpretation Comments SARS-CoV-2 Rapid ID NOW Not Detected Not Detected (test code = 44968-1) JAKE (test code = JAKE) ID NOW COVID-19 Assay is an isothermal nucleic acid amplification test intended for the qualitative detection of nucleic acid from SARS-CoV-2 viral RNA in nasopharyngeal (BUSINESS PROCESS LEAD) specimens. It is used under Emergency Use Authorization (EUA) by FDA. The limit of detection (LOD) of the assay is 125 Genome Equivalents/mL. A positive result is indicative of the presence of SARS-CoV-2 RNA. ?Clinical correlation with patient history and other diagnostic information is necessary to determine patient infection status. A negative (Not Detected) result does not preclude SARS-CoV-2 infection. In patients with clinical symptoms and other tests that are consistent with SARS-CoV-2 infection, negative results should be treated as presumptive negative and a new specimen should be tested with alternative PCR molecular test. Invalid: Please collect a new specimen for repeat patient testing if clinically indicated. Lab Interpretation Normal (test code = 15563-9) NPI:[id number] CHEST 1 [id number] 16:34:33CHEST ONE VIEW HISTORY: ?Chest pain TECHNIQUE: ?AP view of the chest is obtained. FINDINGS: Lungs are clear. Heart size and mediastinal silhouette arenormal. No pleural effusion or pneumothorax is seen. CONCLUSIONS: No acute cardiopulmonary disease. [facility], Radiant Results Inft User - 08/09/2020 11:35 AM CDTCHEST ONE VIEWHISTORY: Chest painTECHNIQUE: AP view of the chest is obtained.FINDINGS: Lungs are clear. Heart size and mediastinal silhouette arenormal. No pleural effusion or pneumothorax is seen.CONCLUSIONS: No acute cardiopulmonary disease. NPI:[id number] 16:07:00 Test Item Value Reference Range Interpretation Comments POCT PREG (test code = 1605) negative On board controls acceptable with present C Line (test code = 3574) POCT PREG LOT # (test code = 3575) [id number] POCT PREG TEST DATE (test code = 3576) Lab Interpretation (test code = Normal 68222-9) NPI:[id number] 13:43:00 Test Item Value Reference Range Interpretation Comments POCT PREG (test code = 1605) Negative On board controls acceptable with C Yes Line (test code = 3574) POCT PREG LOT # (test code = 3575) POCT PREG TEST DATE (test code = 3576) Lab Interpretation (test code = Normal 41946-0) NPI:[id number] 13:43:00 Test Item Value Reference Range Interpretation Comments POCT PREG (test code = 1605) Negative On board controls acceptable with C Yes Line (test code = 3574) POCT PREG LOT # (test code = 3575) POCT PREG TEST DATE (test code = 3576) Lab Interpretation (test code = Normal 73457-8) NPI:[id number] 20:15:00 Test Item Value Reference Range Interpretation Comments POCT PREG (test code = 1605) Negative On board controls acceptable with C Yes Line (test code = 3574) POCT PREG LOT # (test code = 3575) POCT PREG TEST DATE (test code = 3576) Lab Interpretation (test code = Normal 92311-6) "
[2021-08-22 18:44] LABS: Urine Blood Negative (Negative); Urine Glucose Negative (Negative); Urine Protein 1+ (Negative); Urine Specific Gravity >=1.030 (1.005-1.030); Urine pH 5.5 (5.0-7.0)
[2021-08-22] MEDS ORDERED: ACETAMINOPHEN 325 MG TABLET ONE (19:52)
[2021-08-22] MEDS ORDERED: NA CHLORIDE 0.9% 1,000 ML ONE (20:55)
--- NOTE | 2021-08-22 20:57 | RAD REPORT ---
EXAM DESCRIPTION: US - OB Limited - 08/22/2021 8:40 pm CLINICAL HISTORY: with abdominal pain COMPARISON: None FINDINGS: The uterus measures 10 x 5 x 6 centimeters. A gestational sac is present within the endome trium measuring 2.4 x 1.2 x 3.6 centimeters. A pole is not seen. A yolk sac is present Right and left ovary normal in size and echotexture. Right and left adnexum unremarkable No significant free fluid IMPRESSION: Intrauterine with an estimated gestational age 7 weeks 2 days. As a pole was not seen this probably represents a blighted ovum. A viable intrauterine is unlikely but not impossible. It is recommended that the patient have a followup endovaginal sonogram in 1 for re-evaluation
[2021-08-22 21:22] LABS: BUN Blood Urea Nitrogen 9 mg/dL (7-18); Bicarbonate 24 mmol/L (21-32); Glucose Level 81 mg/dL (74-106); Hematocrit 35.2 % (36.0-45.0); Lymphocytes % 36.3 % (15.3-44.8); MPV 8.8 fL (7.6-11.3); Potassium 3.7 mmol/L (3.5-5.1); RBC Red Blood Cell Count 4.07 M/uL (3.86-4.86); Sodium Level 137 mmol/L (136-145)
[2021-08-22 21:43] LABS: HCG, Quantitative 54286 mIU/mL (1-3)
--- NOTE | 2021-08-22 21:55 | EDPHYS ---
Physician Documentation [facility] Name: Edmond Dewitt Age: 26 yrs Sex: Female : 1995 Arrival Date: 08/22/2021 Time: 18:24 Bed 19 Private MD: ED Physician Opal Richard HPI: 08/22 18:46 This 26 yrs old Black Female presents to ER via Ambulatory with complaints of Headache, pm1 8 Wks Preg w/ cramping. 18:46 The patient presents with abdominal cramping. Onset: The symptoms/episode pm1 began/occurred today around 3 PM. Modifying factors: The symptoms are alleviated by nothing, the symptoms are aggravated by nothing. Associated signs and symptoms: Pertinent positives: headache onset 1 hour prior to arrival, Pertinent negatives: dysuria, fever, vaginal bleeding. Severity of symptoms: in the emergency department the symptoms are unchanged. The patient is sexually active. The patient has been recently seen by a physician: Dr. Bautista, OB at [facility] clinic. Reports U/S at 6 weeks - IUP. MACHINE CAPTAIN: 18:46 2, Full Term 1 pm1 22:22 Verified jaden Historical: - Allergies: 18:35 Bentyl; iw 18:35 dicyclomine; iw 18:35 Ketorolac; iw 18:35 metoclopramide HCl; iw 18:35 Morphine; iw 18:35 Ondansetron HCl; iw 18:35 Sulfa (Sulfonamide Antibiotics); iw 18:35 Tramadol HCl; iw - PMHx: 18:35 brain lesions; CHF; Migraines; PCOS; iw - Immunization history:: Client reports having NOT received the Covid vaccine. - Social history:: Smoking status: Patient denies any tobacco usage or history of. ROS: 18:46 Positive for abdominal cramping. pm1 18:46 Constitutional: Negative for fever, chills, and weight loss, Cardiovascular: Negative for chest pain, palpitations, and edema, Respiratory: Negative for shortness of breath, cough, wheezing, and pleuritic chest pain, Abdomen/GI: Negative for abdominal pain, nausea, vomiting, diarrhea, and constipation. 18:46 Neuro: Positive for headache. 18:46 All other systems are negative. Exam: 18:46 Constitutional: This is a well developed, well nourished patient who is awake, alert, pm1 and in no acute distress. Head/Face: Normocephalic, atraumatic. 18:46 Back: No spinal tenderness. No costovertebral tenderness. Full range of motion. Skin: Warm, dry with normal turgor. Normal color with no rashes, no lesions, and no evidence of cellulitis. MS/ Extremity: Pulses equal, no cyanosis. Neurovascular intact. Full, normal range of motion. 18:46 Eyes: Exam is negative for acute changes, Periorbital structures: appear normal, Pupils: no acute changes, Extraocular movements: no acute changes. 18:46 ENT: Mouth: no acute changes, Lips: normal, moist, Oral mucosa: normal, pink and intact, moist. 18:46 Cardiovascular: Exam negative for acute changes, Rate: normal, Rhythm: regular, Pulses: no pulse deficits are appreciated. 18:46 Respiratory: Exam negative for acute changes, respiratory distress, shortness of breath. 18:46 Abdomen/GI: Inspection: obese Palpation: abdomen is soft and non-tender, in all quadrants. 18:46 Neuro: Exam negative for acute changes, Orientation: is normal, Mentation: is normal, Motor: is normal, moves all fours. Vital Signs: 18:35 BP 124 / 78; Pulse 76; Resp 16; Temp 97.8; Pulse Ox 100% on R/A; Weight 97.98 kg; iw Height 5 ft. 4 in. (162.56 cm); Pain 6/10; 18:35 Body Mass Index 37.08 (97.98 kg, 162.56 cm) iw MDM: 18:42 Patient medically screened. pm1 19:56 Data reviewed: vital signs. Data interpreted: Pulse oximetry: on room air is 100 %. pm1 Interpretation: normal. 08/22 18:44 Order name: Urine Dipstick-Ancillary; Complete Time: 19:57 EDMS 08/22 21:53 Interpretation: Normal except: UKET Trace; UPROT 1+. 08/22 18:46 Order name: Abo/rh Typing; Complete Time: 21:52 pm1 08/22 21:53 Interpretation: Reviewed. 08/22 18:46 Order name: Basic Metabolic Panel; Complete Time: 21:52 pm1 08/22 18:46 Order name: CBC with Diff; Complete Time: 21:52 pm1 08/22 21:52 Interpretation: Normal except: HGB 11.6; HCT 35.2. cp 08/22 18:46 Order name: Quantitative Hcg; Complete Time: 21:52 pm1 08/22 21:53 Interpretation: Reviewed. cp 08/22 18:44 Order name: Urine Dipstick-Ancillary (obtain specimen); Complete Time: 18:44 iw 08/22 18:44 Order name: Urine Test (obtain specimen); Complete Time: 18:44 iw 08/22 18:46 Order name: IV Saline Lock; Complete Time: 20:49 pm1 08/22 19:06 Order name: US Transvaginal Ob pm1 08/22 20:37 Order name: OB Limited; Complete Time: 21:52 EDMS 08/22 18:46 Order name: Labs collected and sent; Complete Time: 21:01 pm1 08/22 18:46 Order name: NPO; Complete Time: 19:02 pm1 08/22 18:46 Order name: Urine Dipstick-Ancillary (obtain specimen); Complete Time: 18:46 pm1 08/22 18:46 Order name: Urine Test (obtain specimen); Complete Time: 18:46 pm1 Administered Medications: 19:54 Drug: Tylenol 650 mg Route: PO; jaden 21:01 Follow up: Response: No adverse reaction jaden 21:02 Drug: NS 0.9% 1000 ml Route: IV; Rate: 1000 ml; Site: right antecubital; jaden Disposition Summary: 08/22/21 21:54 Discharge Ordered Location: Home cp Problem: new cp Symptoms: have improved cp Condition: Stable cp Diagnosis - related conditions, unspecified, first trimester cp Followup: cp - With: Private Physician - When: 1 week - Reason: Recheck today's complaints Discharge Instructions: - Discharge Summary Sheet cp - Abdominal Pain During cp - Care cp - First Trimester of cp - Activity Restriction During cp - Form - Excuse from Work, School, or Physical Activity cp Forms: - Medication Reconciliation Form cp - Thank You Letter cp - Antibiotic Education cp - Prescription Opioid Use cp - Work release form lp1 Prescriptions: - 147-iron gluc-folic 13 mg iron- 1 mg Oral tablet - take 1 tablet by ORAL route once daily; 30 tablet; Refills: 0, Product cp Selection Permitted Signatures: Dispatcher [employer] Elissa Herr, RN RN iw Qamar Blair, CINDY PA cp Brady Salazar, INCIDENT RESPONSE LEAD INCIDENT RESPONSE LEAD pm1 Georgina Brian, RN RN jaden
--- NOTE | 2021-08-22 21:55 | ER ---
Nurse's Notes [facility] Name: Edmond Dewitt Age: 26 yrs Sex: Female : 1995 Arrival Date: 08/22/2021 Time: 18:24 Bed 19 Private MD: Diagnosis: related conditions, unspecified, first trimester Presentation: 08/22 18:33 Chief complaint: Patient states: is approx 8 weeks and started having cramping iw at 4 pm and then started having a headache about an hour ago, denies vaginal bleeding, G2, P1, had gastric sleeve 6 months. Coronavirus screen: At this time, the client does not indicate any symptoms associated with coronavirus-19. Ebola Screen: Patient negative for fever greater than or equal to 101.5 degrees Fahrenheit, and additional compatible Ebola Virus Disease symptoms Patient denies exposure to infectious person. Patient denies travel to an Ebola-affected area in the 21 days before illness onset. No symptoms or risks identified at this time. Risk Assessment: Do you want to hurt yourself or someone else? Patient reports no desire to harm self or others. Onset of symptoms was August 22, 2021. 18:33 Method Of Arrival: Ambulatory iw 18:33 Acuity: SHADY 3 iw 18:35 Initial Sepsis Screen: Does the patient meet any 2 criteria? No. Patient's initial iw sepsis screen is negative. Does the patient have a suspected source of infection? No. Patient's initial sepsis screen is negative. Triage Assessment: 22:21 General: Appears in no apparent distress. jaden 22:21 Pain: Also complains of no other associated symptoms. jaden 22:21 General: Behavior is calm, cooperative. jaden 22:21 Headache History: Denies prior headaches. jaden 22:21 Pain: Pain currently is 5 out of 10 on a pain scale. jaden 22:22 Neuro: No deficits noted. jaden 22:22 Pain: Pain began suddenly. jaden TREATMENT COORDINATOR: 18:46 2, Full Term 1 pm1 22:22 Verified jaden Historical: - Allergies: 18:35 Bentyl; iw 18:35 dicyclomine; iw 18:35 Ketorolac; iw 18:35 metoclopramide HCl; iw 18:35 Morphine; iw 18:35 Ondansetron HCl; iw 18:35 Sulfa (Sulfonamide Antibiotics); iw 18:35 Tramadol HCl; iw - PMHx: 18:35 brain lesions; CHF; Migraines; PCOS; iw - Immunization history:: Client reports having NOT received the Covid vaccine. - Social history:: Smoking status: Patient denies any tobacco usage or history of. Screenin:56 Abuse screen: Denies threats or abuse. Denies injuries from another. Nutritional jaden screening: No deficits noted. Tuberculosis screening: No symptoms or risk factors identified. Fall Risk None identified. Assessment: 19:54 Reassessment: No changes from previously documented assessment. I recv'd the pt in room jaden 19. I asked my charge nurse, after a failed attempt and cautioning from the pt, if she could get labs and a line. She will haylee. The US tech is at bedside performing the exam. The pt is in NAD. No bleeding is noted, only cramping. Vital Signs: 18:35 BP 124 / 78; Pulse 76; Resp 16; Temp 97.8; Pulse Ox 100% on R/A; Weight 97.98 kg; iw Height 5 ft. 4 in. (162.56 cm); Pain 6/10; 18:35 Body Mass Index 37.08 (97.98 kg, 162.56 cm) iw ED Course: 18:24 Patient arrived in ED. ds1 18:35 Triage completed. iw 18:35 Arm band placed on. iw 18:41 Brady Salazar NP is PHCP. pm1 18:41 Opal Richard MD is Attending Physician. pm1 19:32 Missed attempt(s): 20 gauge Bleeding controlled, band aid applied, catheter tip intact. oe 19:40 Georgina Brian, RN is Primary Nurse. jaden 19:43 Urine Microscopic Only Sent. jaden 19:58 PHCP role handed off by Brady Salazar NP cp 19:58 Qamar Blair PA is PHCP. cp 20:41 US Transvaginal Ob In Process Unspecified. EDMS 20:41 OB Limited In Process Unspecified. EDMS 20:45 Accessed peripheral vein via ultrasound, utilizing dynamic ultrasound technique using lp1 ,sterile technique, per hospital protocol. Clean \T\ dry. Good blood return. Flushes easily. 20g IV to R AC. 20:45 Initial lab(s) drawn, by me, sent to lab. lp1 21:01 Abo/rh Typing Sent. jaden 21:01 Basic Metabolic Panel Sent. jaden 21:01 CBC with Diff Sent. jaden 21:01 Quantitative Hcg Sent. jaden 22:14 No provider procedures requiring assistance completed. IV discontinued, No lp1 redness/swelling at site. Pressure dressing applied. 22:22 Patient has correct armband on for positive identification. Call light in reach. Side jaden rails up X 1. Adult w/ patient. Administered Medications: :54 Drug: Tylenol 650 mg Route: PO; jaden 21:01 Follow up: Response: No adverse reaction jaden 21:02 Drug: NS 0.9% 1000 ml Route: IV; Rate: 1000 ml; Site: right antecubital; jaden Outcome: :54 Discharge ordered by MD. cp 22:14 Discharged to home ambulatory. lp1 22:14 Condition: good 22:14 Discharge instructions given to patient, Instructed on discharge instructions, follow up and referral plans. medication usage, Demonstrated understanding of instructions, follow-up care, medications, Prescriptions given X 1. 22:17 Patient left the ED. lp1 Signatures: Dispatcher [employer] EDOK Yue Bello ds1 Elissa Henderson, RN Elisa Montenegro RN RN lp1 Qamar Blair PA PA cp Marinas, Patrick, SIZE WORKER SIZE WORKER pm1 Ashkan Benjamin Brenda, RN RN jaden
[2021-08-23 00:32] VITALS: BP 124/78; TEMP 97.8; O2SAT 100
--- NOTE | 2021-08-25 15:31 | RAD REPORT ---
EXAM DESCRIPTION: US - Transvaginal OB - 08/22/2021 8:39 pm CLINICAL HISTORY: with abdominal pain COMPARISON: None FINDINGS: The uterus measures 10 x 5 x 6 centimeters. A gestational sac is present within the endome trium measuring 2.4 x 1.2 x 3.6 centimeters. A pole is not seen. A yolk sac is present Right and left ovary normal in size and echotexture. Right and left adnexum unremarkable No significant free fluid IMPRESSION: Intrauterine with an estimated gestational age 7 weeks 2 days. As a pole was not seen this probably represents a blighted ovum. A viable intrauterine is unlikely b ut not impossible. It is recommended that the patient have a followup endovaginal sonogram in 1 for r e-evaluation
== END 2021-08-22 22:17 | disposition home or self-care (01) ==
LOC: ER 18:22
DX: O26.891 Other specified pregnancy related conditions, first trimester (principal); Z3A.01 Less than 8 weeks gestation of pregnancy; Z88.5 Allergy status to narcotic agent; Z88.8 Allergy status to other drugs, medicaments and biological substances
CPT/HCPCS: 85025; 80048; 36415; 86900; 86901; 84702; 81003; 76815; 76817; 99284; J7030

== ENCOUNTER 2023-02-20 09:59 | Emergency (ER) | payer OTHER ==
--- OUTSIDE RECORDS SUMMARY | 2023-02-20 10:24 | XMS REPORT | Continuity of Care Document ---
:1995 Author Organization [facility] t Address [address] [place] [address] Care Team Providers Name Role Phone Ilan Armstrong MD, Apolinar Primary Care Physician [phone] QUETA SCHULTE Attending Clinician Unavailable CARROLL HINSON Attending Clinician Unavailable ION CASTELLANOS Attending Clinician Unavailable LIZZIE BELL Attending Clinician Unavailable Lizzie Jimenez Attending Clinician Carroll Hinson MD Attending Clinician JESSICA NORMAN Attending Clinician Unavailable [facility] Attending Clinician INGRID ALCAZAR Attending Clinician Unavailable Carroll Hinson Attending Clinician Unavailable Doctor Unassigned, [place] Attending Clinician Unavailable MARIA L GARCIA Attending Clinician Unavailable MARIA L GARCIA Attending Clinician Unavailable RENATA DIAZ Attending Clinician Unavailable RENATA DIAZ Attending Clinician Unavailable Ion Castellanos PA-C Attending Clinician ARCHANA CASTELLON Attending Clinician Unavailable Archana Castellon MD Attending Clinician [phone] CLAYTON MATOS Attending Clinician Unavailable CLAYTON MATOS Attending Clinician Unavailable 1, Clc Mfm Usg Room Attending Clinician Unavailable Clayton Matos MD Attending Clinician Queta Schulte MD Attending Clinician Draw, Clc-Bls Lab Attending Clinician Unavailable Unknown, Attending Attending Clinician Unavailable Da Bardales MD Attending Clinician FRANCE KEN Attending Clinician Unavailable France Ken DO Attending Clinician Eduardo Fish MD Attending Clinician [phone] EDUARDO FISH Attending Clinician Unavailable Candy BYERS Attending Clinician Unavailable Candy Goins Attending Clinician YOKO BAKER Attending Clinician Unavailable Yoko Robles Attending Clinician QAMAR GIRARD Attending Clinician Unavailable Only, Ang Db Test Attending Clinician Unavailable Loly Luong MD Attending Clinician LOLY LUONG Attending Clinician Unavailable MeeraJose Juan villasenor Attending Clinician Unavailable 2, Adc Lab Attending Clinician Unavailable Pob, Adc Lab Main Attending Clinician Unavailable Only, Adc Test Attending Clinician Unavailable TIA AVERY Attending Clinician Unavailable Tia Avery MD Attending Clinician Paul ORTHOPEDIC NURSE PRACTITIONER, Shelbi Attending Clinician Nimesh RICKS, Erika Attending Clinician RUSSEL YING Attending Clinician Unavailable DORussel Attending Clinician Gomez ORTHOPEDIC NURSE PRACTITIONER, Suzette Attending Clinician SUZETTE STINSON Attending Clinician Unavailable EKHAESE, OBONORUMA IMARIA Attending Clinician Unavailable Ebkhalida MEDINAP, Nagi Attending Clinician NAGI YEH Attending Clinician Unavailable EKHAESE, OBONORUMA Attending Clinician Unavailable EKHAESE, DO OBONORUMA JEFFARIABE Attending Clinician Unavailab kishore Zhou RN, Sumaya Ba Attending Clinician Unavailable HERNÁN SUGGS Attending Clinician Unavailable Liban Deluca MD Attending Clinician Feliciano Frazier DO Attending Clinician LIBAN DELUCA Attending Clinician Unavailable ENID PAGAN.HBennie Attending Clinician Unavailable Lab, Adc Fam Pob I Attending Clinician Unavailable Emilie Rajput MD Attending Clinician EMILIE RAJPUT Attending Clinician Unavailable ARCHANA CASTELLON Admitting Clinician Unavailable QUETA SCHULTE Admitting Clinician Unavailable INGRID ALCAZAR Admitting Clinician Unavailable Carroll Hinson Admitting Clinician Unavailable MARIA L GARCIA Admitting Clinician Unavailable RENATA DIAZ Admitting Clinician Unavailable Archana Castellon MD Admitting Clinician [phone] Queta Schulte MD Admitting Clinician Da Bardales MD Admitting Clinician DA BARDALES Admitting Clinician Unavailable Physician, No Primary or Family Admitting Clinician Unavaila TIA Morse Admitting Clinician Unavailable SHELBI MILLER Admitting Clinician Unavailable RUSSEL YING Admitting Clinician Unavailable YOKO BAKER Admitting Clinician Unavailable EKHAESE, OBONORUMA Admitting Clinician Unavailable EKHAESE, DO OBONORUMA IMARIABE Admitting Clinician Unavailab le EKHAESE, OBONORUMA IMARIA Admitting Clinician Unavailable Payers Payer Name Policy Type Policy Number Effective Date Expiration Date Lul ILNK II [id number] 2019 00:00:00 [facility] [id number] 2018 00:00:00 PLUS Problems Condition Condition Condition Status Onset Resolution Last Treating Co mments Source Name Details Category Date Date Treatment Clinician Date Gestationa Gestationa Disease Active U nivers l l 4-26 ity of hypertens[place] Status Status Disease Active Univers post post 4-25 ity of repeat low repeat [place] transverse transverse 00 Me dical Branch section section 25 weeks 25 weeks Disease Active Unive rs gestation gestation 1-21 ity of of of 00:00: [place] [facility] ER Anemia Anemia Disease Active 2021-04 Univers 2-14 ity of 00:00: [place] 00 Medical Branch Hypercoagu Hypercoagu Disease Active 2021-04 U nivers lable lable 2-14 ity of state state 00:00: [place] 00 Medical Branch Unspecifie Unspecifie Disease Active U nivers d d 9-13 ity of high-risk high-risk 00[place] [facility] Obesity Obesity Disease Active Univers affecting affecting 9-13 [place] of 00:[place] first 00 Medica l trimester trimester Bran ch History of History of Disease Active U nivers CHF CHF 9-13 ity of (congestiv (congestiv 00:[place] e heart e heart 00 Medical failure) failure) Branch History of History of Disease Active U nivers encephalop encephalop 9-13 it y of athy athy 00:00: [facility] 6 weeks 6 weeks Disease Active Univers gestation gestation 9-13 ity of of of 00:00: [place] 00 [facility] ER History of History of Disease Active U nivers DVT of DVT of 9-13 ity of lower lower 00:00: [place] extremity extremity 00 [facility] ER Status Status Disease Active Univers post post 6-10 ity of bilateral bilateral 00:00: [place] salpingect salpingect 00 Me dical ken ken Branch Obesity Obesity Disease Active Univers (BMI (BMI 5-12 ity of 30-39.9) 30-39.9) 00:00: [place] [facility] Preoperati Preoperati Disease Active U nivers ve ve 5-12 ity of examinatio examinatio [place] [facility] Deep vein Deep vein Disease Active Uni vers thrombosis thrombosis 4-22 it y of (DVT) (DVT) 00:00: [place] affecting affecting [facility] , , Br anch antepartum antepartum Previous Previous Disease Active Unive rs 4-22 ity of section section 00:00: [place] [facility] H/O H/O Disease Active 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 00:00: [place] [facility] Nausea and Nausea and Disease Active U nivers vomiting vomiting 4-22 ity of during during 00:00: [place] 00 [facility] prior to prior to Branch 22 weeks 22 weeks gestation gestation Morbid Morbid Disease Active Methodi obesity obesity 01-13 st 00:00: Hospita 00 l Obesity Obesity Disease Active [facility] 01-13 st 00:00: Hospita 00 l Boil, Boil, Disease Active Univers breast breast 5-16 ity of 00:00: [place] [facility] PCOS PCOS Disease Active Univers (polycysti (polycysti 5-16 it y of c ovarian c ovarian 00:00: [place] syndrome) syndrome) [facility] Branch Irregular Irregular Disease Active Uni vers menstrual menstrual 5-16 ity of cycle cycle 00:00: [place] 00 Medical Branch Migraine Migraine Disease Active Unive rs with aura with aura 5-16 ity of and and 00:00: [place] without without 00 Medical status status Branch migrainosu migrainosu s, not s, not intractabl intractabl e e Morbid Morbid Disease Active Univers obesity obesity 6-17 ity of 00:00: [place] 00 Medical Branch Morbid Morbid Disease Active Univers obesity obesity 6-17 ity of with BMI with BMI 00:00: [place] of of 00 Medical 40.0-44.9, 40.0-44.9, Br anch adult adult Brain Brain Disease Active Overview: Univer s lesion lesion Formattin ity of 00:00: g of this note Medical might be Branch different from the original. DX in 2009 @ [place] [facility] Neuropathy Neuropathy Disease Active Overview : Univers 2 Formattin ity of 00:00: g of this note Medical might be Branch different from the original. Hands & feet CHF CHF Disease Active Univers (congestiv (congestiv - it y of e heart e heart 00:00: [place] failure) failure) 00 Medica l Branch Obstructiv Obstructiv Disease Active U nivers e sleep e sleep 6-26 ity of apnea apnea 00:00: [place] (adult) (adult) 00 Medical (pediatric (pediatric Br anch ) ) Abnormal Abnormal Disease Active 2010-04 Unive rs brain MRI brain MRI 0-02 ity of 00:00: [place] 00 Medical Branch Amenorrhea Amenorrhea Disease Active 2010-04 U nivers , , 0-02 ity of secondary secondary 00:00[place] Dizziness Dizziness Disease Active 2010-04 Uni vers 0-02 ity of 00:00: [place] 00 Medical Branch Hearing Hearing Disease Active Overview: Univ ers loss in loss in 3-08 Formattin ity o f left ear left ear 00:00: g of this [place] 00 note Medical might be Branch different from the original. Formattin g of this note might be different from the original. Failed audiology exam L ear - needs hearing aid Mild to moderate/ severe sensorine ural hearing loss L ear. Headache(7 Headache(7 Disease Active 2009-04 Overview : Univers 84.0) 84.0) 2-23 Formattin ity of 00:00: g of this [place] note Medical might be Branch different from the original. Formattin g of this note might be different from the original. Hospitali zed 02/26 for 1 month for AMS, headache, found to have brain lesions. Now close to baseline. Work up is on going. Followed by neuro, opthomalg oy. See [facility] notes for details Heart Heart Disease Active 2009-04 Overview: Univer s murmur murmur 06-11 Formattin ity of 00:00: g of this [place] note Medical might be Branch different from the original. Formattin g of this note might be different from the original. Found during hospitali zation 02/26 - ECHO normal Allergies, Adverse Reactions, Alerts Allergy Allergy Status Severity Reaction(s) Onset Inactive Treating Comm ents Source Name Type Date Date Clinician DICYCLOM DRUG Active Unknown-Cmnt Un flavio INE INGREDI 11-24 ity of 00:00: [place] [facility] Dicyclom Drug Active Unknown - Unive rs ine Allergy See comments 11-24 ity of 00:00: Medical Branch Dicyclom Propensi Active Swelling 2020-0 Meth renetta ine ty to [address] adverse 00:00: Hospita reaction 00 l s to drug Ibuprofe Propensi Active Swelling 2020-0 Meth renetta n ty to [address] st adverse 00:00: Hospita reaction 00 l s to drug Morphine Propensi Active Swelling 2020-0 Meth renetta ty to 15 st adverse 00:00: Hospita reaction 00 l s to drug Metoclop Propensi Active Other (See 2020-0 Mood Me thodi ramide ty to Comments) 15 change/ st Hcl adverse 00:00: swelling Hospita reaction 00 l s to drug Sulfa Propensi Active Swelling 2020-0 Method i (Sulfona ty to 01-01 st mide adverse 00:00: Hospita Antibiot reaction 00 l ics) s to drug Ketorola Propensi Active Swelling 2020-0 Meth renetta c ty to 9[address] st adverse 00:00: Hospita reaction 00 l s to drug Tramadol Propensi Active Swelling 2020-0 Meth renetta ty to 15 st adverse 00:00: Hospita reaction 00 l s to drug Ondanset Propensi Active Swelling Meth renetta nahum Hcl ty to 9-15 st adverse 00:00: Hospita reaction 00 l s to drug Ibuprofe Propensi Active Swelling Univ ers n ty to 6-29 ity of adverse 00:00: [place] reaction 00 Medical s Branch IBUPROFE DRUG Active High Anaphylaxis Uni vers N INGREDI 6-29 ity of 00:00: [place] 00 Medical Branch Sulfa Propensi Active Hives Univers (Sulfona ty to 8-21 ity of mide adverse 00:00: [place] Antibiot reaction 00 Medica l ics) s Branch SULFA Drug Active Hives Univers (SULFONA Class 8-21 ity of MIDE 00:00: [place] ANTIBIOT 00 Medical ICS) Branch SULFAMET DRUG Active Hives 0 Univers HOXAZOLE INGREDI 4-25 ity of 00:00: [place] 00 Medical Branch Sulfamet Propensi Active Swelling Univ ers hoxazole ty to 4-25 ity of adverse 00:00: [place] reaction 00 Medical s Branch DICYCLOM DRUG Active Hives 20160 Univers INE HCL INGREDI 3-25 ity of 00:00: [place] 00 Medical Branch Dicyclom Propensi Active Rash 2015-0 Univer s ine Hcl ty to 3-25 ity of adverse 00:00: [place] reaction 00 Medical s Branch MORPHINE DRUG Active High Hives 2016-0 Univers INGREDI 2-10 ity of 00:00: [place] 00 Medical Branch METOCLOP DRUG Active High Hives 2016-0 Univers RAMIDE INGREDI 2-10 ity of HCL 00:00: [place] 00 Medical Branch SULFUR DRUG Active High Hives 2016-0 Univers INGREDI 2-10 ity of 00:00: [place] 00 Medical Branch KETOROLA DRUG Active High Hives 2016-0 Univers C INGREDI 2-10 ity of TROMETHA 00:00: [place] MINE 00 Medical Branch TRAMADOL DRUG Active High Anxiety 2016-0 Univers INGREDI 2-10 ity of 00:00: [place] 00 Medical Branch ONDANSET DRUG Active High Hives 2016-0 Univers NAHUM HCL 2-10 ity of (PF) 00:00: [place] 00 Medical Branch Morphine Propensi Active Swelling 2016-0 Univ ers ty to 2-10 ity of adverse 00:00: [place] reaction Medical s Branch Metoclop Propensi Active Swelling Univ ers ramide ty to 2-10 ity of Hcl adverse 00:00: [place] reaction Medical s Branch Sulfur Propensi Active Swelling Univer s ty to 2-10 ity of adverse 00:00: [place] reaction Medical s Branch Ketorola Propensi Active Swelling Univ ers c ty to 2-10 ity of Trometha adverse 00:00: [place] mine reaction Medical s Branch Tramadol Propensi Active Swelling Univ ers ty to 2-10 ity of adverse 00:00: [place] reaction Medical s Branch Ondanset Propensi Active Swelling Univ ers nahum Hcl ty to 2-10 ity of (Pf) adverse 00:00: [place] reaction 00 Medical s Branch Family History Family Member Diagnosis Comments Start Date Stop Date Source Natural brother Hypertension [facility] Natural father Diabetes [facility] Natural father Hearing loss [facility] [place] [facility] Natural mother Crohn's disease [facility] Social History Social Habit Start Date Stop Date Quantity Comments Source ASSERTION 2021-11-27 University of 00:00:00 [facility] Gender identity [facility] History SDOH University o f Alcohol Frequency [facility] edical Branch History SDOH University o f Alcohol Std Drinks [place] [facility] History [facility] University o f Alcohol Binge [place] [facility] al Branch Sexual orientation [facility] Exposure to 2022-08-07 2022-08-17 Not sure University of SARS-CoV-2 (event) 00:00:00 10:52:00 [facility] Alcohol intake 2021-01-14 2021-01-14 Current drinker of Me thodist 00:00:00 00:00:00 alcohol (finding) Hospita l History of Social 2021-01-14 2021-01-[address] function 00:00:00 00:00:00 Hospital Tobacco use and 2021-01-01 2021-01-01 Smokeless tobacco [facility]ist exposure 00:00:00 00:00:00 non-user Hospital Alcohol Comment 2021-01-01 2021-01-[address] 00:00:00 00:00:00 Hospital Sex Assigned At [birth year] [facility] 00:00:00 00:00:00 Hospital Smoking Status Start Date Stop Date Source Never smoked tobacco [facility] Medications Ordered Filled Start Stop Current Ordering Indication Dosage Frequency Signature Comments Components Source Medication Medication Date Date Medication? Clinician (SIG) Name Name Sodium Yes APPLY TO [facility] Fluoride 08-25 TOOTHBRUSH ity o f 1.1 % Pste 00:00: [place] 00 FOR Medical 1MINUTE Branch TWICE A DAY AND RINSE ciprofloxac Yes INSTILL 4 U nivers in-dexameth 08-19 DROPS INTO it y of asone 00:00: AFFECTED [place] 0.3-0.1 % 00 EAR TWICE Medic al otic drops A DAY X 7 Bran ch DAYS PNV Yes Take by Univers no.95/pedro pablo 4-28 mouth. ity of 10:04: [place] fum/folic 29 Medical ac Branch ( ORAL) enoxaparin Yes Enoxaparin U nivers 100 mg/mL 4-28 Subcutaneo ity of injection 10:04: [facility] 29 injection Medical syringe QD Branch active PNV 0 Yes Take by Univers no.95/pedro pablo 4-28 mouth. ity of us 10:04: [place] fum/folic 29 Medical ac Branch ( ORAL) enoxaparin 0 Yes Enoxaparin U nivers 100 mg/mL -28 Subcutaneo ity of injection 10:04: [facility] 29 injection Medical syringe QD Branch active PNV 0 Yes Take by Univers no.95/pedro pablo 4-28 mouth. ity of us 10:04: [place] fum/folic 29 Medical ac Branch ( ORAL) PNV 2022-0 Yes Take by Univers no.95/pedro pablo 4-28 mouth. ity of us 10:04: [place] fum/folic 29 Medical ac Branch ( ORAL) PNV 2022-0 Yes Take by Univers no.95/pedro pablo 4-28 mouth. ity of us 10:04: [place] fum/folic 29 Medical ac Branch ( ORAL) PNV 2022-0 Yes Take by Univers no.95/pedro pablo 4-28 mouth. ity of us 10:04: [place] fum/folic 29 Medical ac Branch ( ORAL) enoxaparin 2022-0 Yes Enoxaparin U nivers 100 mg/mL 4-28 Subcutaneo ity of injection 10:04: [facility] 29 injection Medical syringe QD Branch active PNV 2022-0 Yes Take by Univers no.95/epdro pablo 4-28 mouth. ity of us 10:04: [facility] Medical ac Branch ( ORAL) enoxaparin 2022-0 Yes Enoxaparin U nivers 100 mg/mL 4-28 Subcutaneo ity of injection 10:04: [facility] 29 injection Medical syringe QD Branch active PNV 2022-0 Yes Take by Univers no.95/pedro pablo 4-28 mouth. ity of us 10:04: [facility] Medical ac Branch ( ORAL) enoxaparin 2022-0 Yes Enoxaparin U nivers 100 mg/mL 4-28 Subcutaneo ity of injection 10:04: [facility] 29 injection Medical syringe QD Branch active PNV 2022-0 Yes Take by Univers no.95/pedro pablo 4-28 mouth. ity of 10:04: [facility] Medical ac Branch ( ORAL) enoxaparin 2022-0 Yes Enoxaparin U nivers 100 mg/mL 4-28 Subcutaneo ity of injection 10:04: [facility] 29 injection Medical syringe QD Branch active PNV 2022-0 Yes Take by Univers no.95/pedro pablo 4-28 mouth. ity of us 10:04: [facility]folic Medical ac Branch ( ORAL) enoxaparin 2022-0 Yes Enoxaparin U nivers 100 mg/mL 4-28 Subcutaneo ity of injection 10:04: [facility] 29 injection Medical syringe QD Branch active PNV 2022-0 Yes Take by Univers no.95/pedro pablo 4-28 mouth. ity of us 10:04: [place] fum/folic 29 Medical ac Branch ( ORAL) enoxaparin 2022-0 Yes Enoxaparin U nivers 100 mg/mL 4-28 Subcutaneo ity of injection 10:04: [facility] 29 injection Medical syringe QD Branch active PNV 2022-0 Yes Take by Univers no.95/pedro pablo 4-28 mouth. ity of us 10:04: [place] fum/folic 29 Medical ac Branch ( ORAL) enoxaparin 2022-0 Yes Enoxaparin U nivers 100 mg/mL 4-28 Subcutaneo ity of injection 10:04: [facility] 29 injection Medical syringe QD Branch active PNV 2022-0 Yes Take by Univers no.95/pedro pablo 4-28 mouth. ity of us 10:04: [place] fum/folic 29 Medical ac Branch ( ORAL) enoxaparin 2022-0 Yes Enoxaparin U nivers 100 mg/mL 4-28 Subcutaneo ity of injection 10:04: [facility] 29 injection Medical syringe QD Branch active PNV 2022-0 Yes Take by Univers no.95/pedro pablo 4-28 mouth. ity of us 10:04: [place] fum/folic 29 Medical ac Branch ( ORAL) enoxaparin 2022-0 Yes Enoxaparin U nivers 100 mg/mL 4-28 Subcutaneo ity of injection 10:04: [facility] 29 injection Medical syringe QD Branch active PNV 2022-0 Yes Take by Univers no.95/pedro pablo 4-28 mouth. ity of us 10:04: [place] fum/folic 29 Medical ac Branch ( ORAL) enoxaparin 2022-0 Yes Enoxaparin U nivers 100 mg/mL 4-28 Subcutaneo ity of injection 10:04: [facility] 29 injection Medical syringe QD Branch active docusate 2022-0 Yes [id number] 200mg Take 2 U nivers 100 mg 4-28 capsules ity of capsule 00:00: by mouth [place] 00 once daily Medical as needed Branch for Constipati on. Take with a full glass of water. docusate 3-0 Yes [id number] 200mg Take 2 U nivers 100 mg 4-28 capsules ity of capsule 00:00: by mouth [place] 00 once daily Medical as needed Branch for Constipati on. Take with a full glass of water. docusate 2023-0 Yes [id number] 200mg Take 2 U nivers 100 mg 4-28 capsules ity of capsule 00:00: by mouth [place] 00 once daily Medical as needed Branch for Constipati on. Take with a full glass of water. docusate 3-0 Yes [id number] 200mg Take 2 U nivers 100 mg 4-28 capsules ity of capsule 00:00: by mouth [place] 00 once daily Medical as needed Branch for Constipati on. Take with a full glass of water. docusate 3-0 Yes [id number] 200mg Take 2 U nivers 100 mg 4-28 capsules ity of capsule 00:00: by mouth [place] 00 once daily Medical as needed Branch for Constipati on. Take with a full glass of water. docusate 3-0 Yes [id number] 200mg Take 2 U nivers 100 mg 4-28 capsules ity of capsule 00:00: by mouth [place] 00 once daily Medical as needed Branch for Constipati on. Take with a full glass of water. docusate 2022-0 Yes [id number] 200mg Take 2 U nivers 100 mg 4-28 capsules ity of capsule 00:00: by mouth [place] 00 once daily Medical as needed Branch for Constipati on. Take with a full glass of water. docusate 2022-0 Yes [id number] 200mg Take 2 U nivers 100 mg 4-28 capsules ity of capsule 00:00: by mouth [place] 00 once daily Medical as needed Branch for Constipati on. Take with a full glass of water. docusate 2022-0 Yes [id number] 200mg Take 2 U nivers 100 mg 4-28 capsules ity of capsule 00:00: by mouth [place] 00 once daily Medical as needed Branch for Constipati on. Take with a full glass of water. docusate 2022-0 Yes [id number] 200mg Take 2 U nivers 100 mg 4-28 capsules ity of capsule 00:00: by mouth [place] 00 once daily Medical as needed Branch for Constipati on. Take with a full glass of water. HYDROcodone 2022- No [id number] 1{tbl} Take 1 U nivers -acetaminop 4-28 05-06 tablet by it y of hen 10-325 00:00: 04:59 mouth [place] mg tablet 00 :00 every 6 Medical (six) Branch hours as needed for Pain (scale 7-10) (Severe postop pain) for up to 7 days. Indication s: acute pain HYDROcodone 2022- No 4647 1{tbl} Take 1 U nivers -acetaminop 4-28 05-06 tablet by it y of hen 10-325 00:00: 04:59 mouth [place] mg tablet 00 :00 every 6 Medical (six) Branch hours as needed for Pain (scale 7-10) (Severe postop pain) for up to 7 days. Indication s: acute pain HYDROcodone 3-0 2022- No 4647 1{tbl} Take 1 U nivers -acetaminop 4-28 05-06 tablet by it y of hen 10-325 00:00: 04:59 mouth [place] mg tablet 00 :00 every 6 Medical (six) Branch hours as needed for Pain (scale 7-10) (Severe postop pain) for up to 7 days. Indication s: acute pain enoxaparin 2023-0 Yes 40mg 40 mg, Unive rs (LOVENOX) 4-27 Subcutaneo ity of injection 13:00: us, Q12H, [place] 40 mg 00 First dose Medical on [facility] Branch 08/13/22 at 0800, Until Discontinu ed, Routine enoxaparin 3-0 Yes 40mg 40 mg, Unive rs (LOVENOX) 4- Subcutaneo ity of injection 13:00: us, Q12H, [place] 40 mg 00 First dose Medical on [facility] Branch 08/13/22 at 0800, Until Discontinu ed, Routine HYDROcodone 3-0 Yes TAKE 1 Univ ers -acetaminop -27 TABLET BY ity of hen 5-325 00:00: MOUTH [place] mg tablet 00 EVERY 6 Medical (SIX) Branch HOURS NEEDED FOR PAIN (SCALE 1-3) FOR UP TO 7 DAYS. HYDROcodone 3-0 2022- No 4647 1{tbl} Take 1 U nivers -acetaminop 08-13-27 tablet by it y of hen 5-325 00:00: 00:00 mouth [place] mg tablet 00 :00 every 6 Medical (six) Branch hours as needed for Pain (scale 1-3) for up to 7 days. Indication s: acute pain enoxaparin 3-0 2022- No 40mg 40 mg, Univ ers (LOVENOX) 08-12-26 Subcutaneo ity of injection 23:00: 22:39 [place], Q12H, [place] 40 mg 00 :00 1 dose, Medical First dose Branch (after last reorder) on Wed08/12/22 at 1800, Routine HYDROcodone 2023-0 Yes 1{tbl} 1 tablet, Univers -acetaminop 4-26 Oral, ity of hen (NORCO 13:17: Q6HPRN, [place] 5) 5-325 mg 37 Starting Medi adam tablet 1 on Wed Branch tablet 08/12/22 at 0817, Until Discontinu ed, Routine, Pain (scale 1-3) HYDROcodone 2022-0 Yes 1{tbl} 1 tablet, Univers -acetaminop 4-26 Oral, ity of hen (NORCO 13:17: Q6HPRN, [place] 5) 5-325 mg 37 Starting Medi adam tablet 1 on Wed Branch tablet 08/12/22 at 0817, Until Discontinu ed, Routine, Pain (scale 1-3) HYDROcodone 2022-0 Yes 1{tbl} 1 tablet, Univers -acetaminop 4-26 Oral, ity of hen (NORCO) 13:16: Q4HPRN, [place] as 10-325 mg 57 Starting Medica l tablet 1 on Wed Branch tablet 08/12/22 at 0816, Until Discontinu ed, Routine, Pain (scale 4-6), Pain (scale 7-10) HYDROcodone 2022-0 Yes 1{tbl} 1 tablet, Univers -acetaminop 4-26 Oral, ity of hen (NORCO) 13:16: Q4HPRN, [place] 10-325 mg 57 Starting Medica l tablet 1 on Wed Branch tablet 08/12/22 at 0816, Until Discontinu ed, Routine, Pain (scale 4-6), Pain (scale 7-10) rho(D) 2022-0 Yes 300ug 300 mcg, Univer s immune 4-25 Intramuscu ity of globulin 23:14: lar, ONCE, [place] as (RHOGAM) 34 For 1 Medical syringe 300 dose, Branch mcg Conditiona l, Routine rho(D) 2022-0 Yes 300ug 300 mcg, Univer s immune 4-25 Intramuscu ity of globulin 23:14: lar, ONCE, [place] (RHOGAM) 34 For 1 Medical syringe 300 dose, Branch mcg Conditiona l, Routine HYDROcodone 2022-0 202- No 2{tbl} 2 tablet, Univers -acetaminop 4-25 04-26 Oral, ity of hen (NORCO 23:14: 13:17 Q6HPRN, [place] 5) 5-325 mg 18 :27 Starting Medi adam tablet 2 on Wed tablet 08/11/22 at 1814, Until 08/12/22 at 0817, Routine, Pain (scale 7-10), Alternate with Ibuprofen diphenhydrA 2023-0 Yes 25mg 25 mg, Univ ers MINE 4-25 Slow IV ity of (BENADRYL) 23:12: Push, [place] injection 57 Q6HPRN, Medical 25 mg Starting Branch on Wed08/11/22 at 181, Until Discontinu ed, Routine, Itching diphenhydrA 2023-0 Yes 25mg 25 mg, Univ ers MINE 4-25 Oral, ity of (BENADRYL) 23:12: Q6[place]PRN, [place] 25 57 Starting Medica l mg on Wed08/11/22 at 1811, Until Discontinu ed, Routine, Sleep, Itching bisacodyL 2022-0 Yes 10mg 10 mg, Univer s (DULCOLAX) 4-25 Rectal, ity of suppository 23:12: QDAILYPRN, [place] 10 mg 57 Starting Medical on Wed08/11/22 at 181, Until Discontinu ed, Routine, Constipati on simethicone 2022-0 Yes 160mg 160 mg, Un flavio (GAS RELIEF 4-25 Oral, ity of (SIMETHICON 23:12: PC+HSPRN, [place] E)) 57 Starting Medical chewable on Wed tablet 160 08/11/22 at mg 1811, Until Discontinu ed, Routine, Gas diphenhydrA 2023-0 Yes 25mg 25 mg, Univ ers MINE 4-25 Slow IV ity of (BENADRYL) 23:12: Push, [place] injection 57 Q6HPRN, Medical 25 mg Starting Branch on Wed08/11/22 at 181, Until Discontinu ed, Routine, Itching diphenhydrA 2023-0 Yes 25mg 25 mg, Univ ers MINE 4-25 Oral, ity of (BENADRYL) 23:12: Q6[place]PRN, [place] tablet 25 57 Starting Medica l mg on Wed08/11/22 at 181, Until Discontinu ed, Routine, Sleep, Itching bisacodyL 3-0 Yes 10mg 10 mg, Univer s (DULCOLAX) 4-25 Rectal, ity of suppository 23:12: QDAILYPRN, [place] 10 mg 57 Starting Medical on [facility] Branch 08/11/22 at 1811, Until Discontinu ed, Routine, Constipati on simethicone 2022-0 Yes 160mg 160 mg, Un flavio (GAS RELIEF -25 Oral, ity of (SIMETHICON 23:12: PC+HSPRN, [place] E[place] 57 Starting Medical chewable on Wed tablet 160 08/11/22 at mg 1811, Until Discontinu ed, Routine, Gas docusate 2022-0 Yes 200mg 200 mg, Unive rs (COLACE) 4-25 Oral, ity of capsule 200 23:12: QDAILYPRN, [place] mg 56 Starting Medical on Branch 08/11/22 at 1811, Until Discontinu ed, Routine, Constipati on magnesium 2022-0 Yes 30mL 30 mL, Univer s hydroxide 4-25 Oral, ity of (MILK OF 23:12: QDAILYPRN, [place] MAGNESIA) 56 Starting Medica l 400 mg/5 mL on Branch suspension 08/11/22 at 30 mL 1811, Until Discontinu ed, Routine, Constipati on lactated 2022-0 Yes 1000mL at 125 Unive rs ringers IV 4-25 mL/hr, ity of infusion 23:12: 1,000 mL, [place] 1,000 mL 56 IV Medical Infusion, Branch PRN, 1 dose, Starting on Wed08/11/22 at 1811, Until Discontinu ed, Routine docusate 3-0 Yes 200mg 200 mg, Unive rs (COLACE) 4-25 Oral, ity of capsule 200 23:12: QDAILYPRN, [place] mg 56 Starting Medical on [facility] Branch 08/11/22 at 1811, Until Discontinu ed, Routine, Constipati on magnesium 3-0 Yes 30mL 30 mL, Univer s hydroxide 4-25 Oral, ity of (MILK OF 23:12: QDAILYPRN, [place] MAGNESIA) 56 Starting Medica l 400 mg/5 mL on Wed Branch suspension 08/11/22 at 30 mL 1812, Until Discontinu ed, Routine, Constipati on lactated 0 Yes 1000mL at 125 Unive rs ringers IV 4-25 mL/hr, ity of infusion 23:12: 1,000 mL, [place] 1,000 mL 56 IV Medical Infusion, Branch PRN, 1 dose, Starting on 08/11/22 at 1812, Until Discontinu ed, Routine PNV Yes Take by Univers no.95/pedro pablo 08-11 mouth. ity of 18:14: [place] fum/folic 34 Medical ac Branch ( ORAL) enoxaparin 0 Yes Enoxaparin U nivers 100 mg/mL 08-11 Subcutaneo ity of injection 18:14: [place] [id number] injection Medical syringe QD Branch active sodium 2022- No 30mL 30 mL, Univers citrate-cit 08-11 04-25 Oral, ity of ajay acid 16:51: 20:56 PRE-PROCED [place] (BICITRA) 36 :00 URE ONCE, Medic al 500-334 1 dose, Branch mg/5 mL Starting solution 30 on e mL 08/11/22 at 1151, Until [place] 08/13/22 at 2359, Routine, Surgery/Pr ocedure enoxaparin 0 Yes Enoxaparin U nivers 100 mg/mL -17 Subcutaneo ity of injection 10:49: [place] [address] injection Medical syringe QD Branch active enoxaparin 0 Yes Enoxaparin U nivers 100 mg/mL -17 Subcutaneo ity of injection 10:49: [place] [address] injection Medical syringe QD Branch active enoxaparin 0 Yes Enoxaparin U nivers 100 mg/mL -17 Subcutaneo ity of injection 10:49: [place] [address] injection Medical syringe QD Branch active enoxaparin 2022-0 Yes Enoxaparin U nivers 100 mg/mL -17 Subcutaneo ity of injection 10:49: [place] [address] injection Medical syringe QD Branch active enoxaparin 2022-0 Yes Enoxaparin U nivers 100 mg/mL 4-17 Subcutaneo ity of injection 10:49: [place] [address] injection Medical syringe QD Branch active enoxaparin Yes Enoxaparin U nivers 100 mg/mL 17 Subcutaneo ity of injection 10:49: [facility] 07 injection Medical syringe QD Branch active lactated 2022- No 1000mL at 999 Univ ers ringers IV 07-28 04-11 mL/hr, ity of infusion 07:00: 07:19 1,000 mL, [place] as 1,000 mL 00 :05 IV Medical Infusion, Branch ONCE, 1 dose, On Wed07/28/22 at 0200, STAT PNV 2022-0 Yes Take by Univers no.95/pedro pablo 4-11 mouth. ity of 05:11: [place] fum/folic 57 Medical ac Branch ( ORAL) enoxaparin Yes Enoxaparin U nivers 100 mg/mL 07-28 Subcutaneo ity of injection 05:11: [facility] 57 injection Medical syringe QD Branch active PNV 0 Yes Take by Univers no.95/pedro pablo 4-11 mouth. ity of 05:11: [place] fum/folic 57 Medical ac Branch ( ORAL) PNV 0 Yes Take by Univers no.95/pedro pablo 4-11 mouth. ity of 05:11: [place] fum/folic 57 Medical ac Branch ( ORAL) PNV 2022-0 Yes Take by Univers no.95/pedro pablo 4-11 mouth. ity of 05:11: [place] fum/folic 57 Medical ac Branch ( ORAL) PNV 2022-0 Yes Take by Univers no.95/pedro pablo 4-11 mouth. ity of 05:11: [place] fum/folic 57 Medical ac Branch ( ORAL) PNV 2022-0 Yes Take by Univers no.95/pedro pablo 4-11 mouth. ity of 05:11: [place] fum/folic 57 Medical ac Branch ( ORAL) PNV 2022-0 Yes Take by Univers no.95/pedro pablo 4-11 mouth. ity of 05:11: [place] fum/folic 57 Medical ac Branch ( ORAL) acetaminoph 2022- No 1000mg 1,000 mg, Univers en 07-15 Oral, ity of (TYLENOL) 02:38: 02:55 ONCE, 1 [place] tablet 00 :00 dose, On Medical 1,000 mg Tue Branch 07/14/22 at 2145, Routine PNV 2022-0 Yes Take by Univers no.95/pedro pablo 3-29 mouth. ity of 00:42: [facility] ac Branch ( ORAL) enoxaparin 0 Yes Enoxaparin U nivers 100 mg/mL 3-29 Subcutaneo ity of injection 00:42: [place] [id number] injection Medical syringe QD Branch active PNV 0 Yes Take by Univers no.95/pedro pablo 3-29 mouth. ity of us 00:42: [facility] Medical ac Branch ( ORAL) enoxaparin 0 Yes Enoxaparin U nivers 100 mg/mL 3-29 Subcutaneo ity of injection 00:42: [place] [address] injection Medical syringe QD Branch active PNV 0 Yes Take by Univers no.95/pedro pablo 3-29 mouth. ity of 00:42: [facility] Medical ac Branch ( ORAL) enoxaparin 0 Yes Enoxaparin U nivers 100 mg/mL 3-29 Subcutaneo ity of injection 00:42: [place] [address] injection Medical syringe QD Branch active PNV 0 Yes Take by Univers no.95/pedro pablo 3-29 mouth. ity of 00:42: [facility] Medical ac Branch ( ORAL) enoxaparin 0 Yes Enoxaparin U nivers 100 mg/mL 3-29 Subcutaneo ity of injection 00:42: [place] [address] injection Medical syringe QD Branch active PNV 0 Yes Take by Univers no.95/pedro pablo 3-29 mouth. ity of 00:42: [facility] Medical ac Branch ( ORAL) enoxaparin 0 Yes Enoxaparin U nivers 100 mg/mL 3-29 Subcutaneo ity of injection 00:42: [place] [address] injection Medical syringe QD Branch active NIFEdipine No 10mg 10 mg, Univ ers (ADALAT) 07-06-20 Oral, ONCE ity of capsule 10 19:00: 18:58 NOW, 1 [place] mg 00 :00 dose, On Medical Mon Branch 07/06/22 at 1400, JATIN PNV 2022-0 Yes Take by Univers no.95/pedro pablo 3-20 mouth. ity of us 15:01: [place] [address] Medical ac Branch ( ORAL) enoxaparin Yes Enoxaparin U nivers 100 mg/mL 3-20 Subcutaneo ity of injection 15:01: [place] [address] injection Medical syringe QD Branch active PNV 0 Yes Take by Univers no.95/pedro pablo 3-20 mouth. ity of us 15:01: [place] [address] Medical ac Branch ( ORAL) enoxaparin Yes Enoxaparin U nivers 100 mg/mL 3-20 Subcutaneo ity of injection 15:01: [place] [address] injection Medical syringe QD Branch active PNV 0 Yes Take by Univers no.95/pedro pablo 3-20 mouth. ity of us 15:01: [place] [address] Medical ac Branch ( ORAL) enoxaparin Yes Enoxaparin U nivers 100 mg/mL 3-20 Subcutaneo ity of injection 15:01: [place] [address] injection Medical syringe QD Branch active PNV 0 Yes Take by Univers no.95/pedro pablo 3-20 mouth. ity of us 15:01: [place] [address] Medical ac Branch ( ORAL) enoxaparin Yes Enoxaparin U nivers 100 mg/mL 3-20 Subcutaneo ity of injection 15:01: [place] [address] injection Medical syringe QD Branch active NIFEdipine 2022- No [id number] 10mg Take 1 Univers (PROCARDIA) 3-20 03-24 capsule by i ty of 10 mg 00:00: 04:59 mouth 3 [place] capsule 00 :00 (three) Medical times Branch daily as needed for Other (cramping) for up to 3 days. NIFEdipine 2022- No [id number] 10mg Take 1 Univers (PROCARDIA) 3-20 03-24 capsule by i ty of 10 mg 00:00: 04:59 mouth 3 [place] capsule 00 :00 (three) Medical times Branch daily as needed for Other (cramping) for up to 3 days. NIFEdipine 2022- No [id number] 10mg Take 1 Univers (PROCARDIA) 3-20 -24 capsule by i ty of 10 mg 00:00: 04:59 mouth 3 [place] capsule 00 :00 (three) Medical times Branch daily as needed for Other (cramping) for up to 3 days. NIFEdipine 2022-0 2022- No [id number] 10mg Take 1 Univers (PROCARDIA) 3-20 03-24 capsule by i ty of 10 mg 00:00: 04:59 mouth 3 [place] capsule 00 :00 (three) Medical times Branch daily as needed for Other (cramping) for up to 3 days. enoxaparin 2022-0 Yes Enoxaparin U nivers 100 mg/mL 3-13 Subcutaneo ity of injection 10:34: [facility] 24 injection Medical syringe QD Branch active enoxaparin 2022-0 Yes Enoxaparin U nivers 100 mg/mL 3-13 Subcutaneo ity of injection 10:34: [facility] 24 injection Medical syringe QD Branch active enoxaparin 2022-0 Yes Enoxaparin U nivers 100 mg/mL 3-13 Subcutaneo ity of injection 10:34: [facility] 24 injection Medical syringe QD Branch active PNV 2022-0 Yes Take by Univers no.95/pedro pablo 2-16 mouth. ity of 11:35: [place] fum/folic 40 Medical ac Branch ( ORAL) PNV 2022-0 Yes Take by Univers no.95/pedro pablo 2-16 mouth. ity of 11:35: [place] fum/folic 40 Medical ac Branch ( ORAL) PNV 2022-0 Yes Take by Univers no.95/pedro pablo 2-16 mouth. ity of us 11:35: [place] fum/folic 40 Medical ac Branch ( ORAL) PNV 2022-0 Yes Take by Univers no.95/pedro pablo 2-16 mouth. ity of us 11:35: [place] fum/folic 40 Medical ac Branch ( ORAL) PNV 2022-0 Yes Take by Univers no.95/pedro pablo 2-16 mouth. ity of 11:35: [place] fum/folic 40 Medical ac Branch ( ORAL) PNV 2022-0 Yes Take by Univers no.95/pedro pablo 2-16 mouth. ity of 11:35: [place] fum/folic 40 Medical ac Branch ( ORAL) PNV 2022-0 Yes Take by Univers no.95/pedro pablo 2-16 mouth. ity of us 11:35: [place] fum/folic 40 Medical ac Branch ( ORAL) PNV 2022-0 Yes Take by Univers no.95/pedro pablo 2-16 mouth. ity of us 11:35: [place] fum/folic 40 Medical ac Branch ( ORAL) PNV 2022-0 Yes Take by Univers no.95/pedro pablo 2-16 mouth. ity of us 11:35: [place] fum/folic 40 Medical ac Branch ( ORAL) PNV 2022-0 Yes Take by Univers no.95/pedro pablo 2-16 mouth. ity of us 11:35: [place] fum/folic 40 Medical ac Branch ( ORAL) Nitrofurant 2022-0 Yes [id number] 100mg Take 1 Univers oin&Nit. 2-16 capsule by ity o f Macrocryst 00:00: mouth in [place] 100 mg 00 the Medical capsule morning Branch and 1 capsule in the evening. Nitrofurant 2022-0 Yes [id number] 100mg Take 1 Univers oin&Nit. 2-16 capsule by ity o f Macrocryst 00:00: mouth in [place] 100 mg 00 the Medical capsule morning Branch and 1 capsule in the evening. Nitrofurant 2022-0 Yes [id number] 100mg Take 1 Univers oin&Nit. 2-16 capsule by ity o f Macrocryst 00:00: mouth in [place] 100 mg 00 the Medical capsule morning Branch and 1 capsule in the evening. Nitrofurant 2022-0 Yes [id number] 100mg Take 1 Univers oin&Nit. 2-16 capsule by ity o f Macrocryst 00:00: mouth in [place] 100 mg 00 the Medical capsule morning Branch and 1 capsule in the evening. Nitrofurant 3-0 Yes [id number] 100mg Take 1 Univers oin&Nit. 2-16 capsule by ity o f Macrocryst 00:00: mouth in [place] 100 mg 00 the Medical capsule morning Branch and 1 capsule in the evening. Nitrofurant 3-0 Yes [id number] 100mg Take 1 Univers oin&Nit. 2-16 capsule by ity o f Macrocryst 00:00: mouth in [place] 100 mg 00 the Medical capsule morning Branch and 1 capsule in the evening. Nitrofurant 3-0 Yes [id number] 100mg Take 1 Univers oin&Nit. 2-16 capsule by ity o f Macrocryst 00:00: mouth in [place] 100 mg 00 the Medical capsule morning Branch and 1 capsule in the evening. Nitrofurant 3-0 Yes [id number] 100mg Take 1 Univers oin&Nit. 2-16 capsule by ity o f Macrocryst 00:00: mouth in [place] 100 mg 00 the Medical capsule morning Branch and 1 capsule in the evening. Nitrofurant 2023-0 Yes [id number] 100mg Take 1 Univers oin&Nit. 2-16 capsule by ity o f Macrocryst 00:00: mouth in [place] 100 mg 00 the Medical capsule morning Branch and 1 capsule in the evening. Nitrofurant 2023-0 Yes [id number] 100mg Take 1 Univers oin&Nit. 2-16 capsule by ity o f Macrocryst 00:00: mouth in [place] 100 mg 00 the Medical capsule morning Branch and 1 capsule in the evening. acetaminoph 2022-0 Yes 650mg 650 mg, Un flavio en 2-15 Oral, ity of (TYLENOL) 19:30: Q6HPRN, [place] tablet 650 31 Starting Medic al mg on Wed Branch 06/03/22 at 1330, Until Discontinu ed, Routine, Pain (scale 1-3) PNV 2022-0 Yes Take by Univers no.95/pedro pablo 2-15 mouth. ity of 14:32: [place] fum/folic 07 Medical ac Branch ( ORAL) PNV 2022-0 Yes Take by Univers no.95/pedro pablo 2-13 mouth. ity of us 08:02: [place] fum/folic 13 Medical ac Branch ( ORAL) PNV 2022-0 Yes Take by Univers no.95/pedro pablo 2-13 mouth. ity of us 08:02: [place] fum/folic 13 Medical ac Branch ( ORAL) PNV 2022-0 Yes Take by Univers no.95/pedro pablo 2-13 mouth. ity of us 08:02: [place] fum/folic 13 Medical ac Branch ( ORAL) PNV 2022-0 Yes Take by Univers no.95/pedro pablo 2-13 mouth. ity of us 08:02: [place] fum/folic 13 Medical ac Branch ( ORAL) PNV 2022-0 Yes Take by Univers no.95/pedro pablo 2-13 mouth. ity of us 08:02: [place] fum/folic 13 Medical ac Branch ( ORAL) PNV 0 Yes Take by Univers no.95/pedro pablo 2-13 mouth. ity of us 08:02: [place] fum/folic 13 Medical ac Branch ( ORAL) ONETOUCH 0 Yes USE 4 Univers VERIO TEST 2-13 TIMES A ity of STRIPS 00:00: DAY [place] strip 00 Medical Branch ONETOUCH 2022-0 Yes USE 4 JEAN Uni vers VERIO FLEX 2-13 DAY ity of METER Misc 00:00: [place] [facility] Branch ONETOUCH 2022-0 Yes USE 4 Univers DELICA PLUS 2-13 TIMES DAY ity of LANCET 33 00:00: [place] [facility] 00 Medical Branch ONETOUCH 2022-0 Yes USE 4 Univers VERIO TEST 2-13 TIMES A ity of STRIPS 00:00: DAY [place] strip Medical Branch ONETOUCH 2022-0 Yes USE 4 JEAN Uni vers VERIO FLEX 2-13 DAY ity of METER Misc 00:00: [place] Medical Branch ONETOUCH 2022-0 Yes USE 4 Univers DELICA PLUS 2-13 TIMES DAY ity of LANCET 33 00:00: [place] [facility] 00 Medical Branch ONETOUCH 2022-0 Yes USE 4 Univers VERIO TEST 2-13 TIMES A ity of STRIPS 00:00: DAY [place] strip Medical Branch ONETOUCH 2022-0 Yes USE 4 JEAN Uni vers VERIO FLEX 2-13 DAY ity of METER Misc 00:00: [place] [facility] Branch ONETOUCH 2022-0 Yes USE 4 Univers DELICA PLUS 2-13 TIMES DAY ity of LANCET 33 00:00: [place] gauge Mis 00 Medical Branch ONETOUCH 2022-0 Yes USE 4 Univers VERIO TEST 2-13 TIMES A ity of STRIPS 00:00: DAY [place] strip 00 Medical Branch ONETOUCH 2022-0 Yes USE 4 JEAN Uni vers VERIO FLEX 2-13 DAY ity of METER Misc 00:00: [place] [facility] Branch ONETOUCH 2022-0 Yes USE 4 Univers DELICA PLUS 2-13 TIMES DAY ity of LANCET 33 00:00: [place] gauge Misc 00 Medical Branch ONETOUCH 2022-0 Yes USE 4 Univers VERIO TEST 2-13 TIMES A ity of STRIPS 00:00: DAY [place] strip 00 Medical Branch ONETOUCH Yes USE 4 JEAN Uni vers VERIO FLEX 2-13 DAY ity of METER Misc 00:00: [place] 00 Medical Branch ONETOUCH Yes USE 4 Univers DELICA PLUS 2-13 TIMES DAY ity of LANCET 33 00:00: [place] gauge Misc 00 Medical Branch ONETOUCH Yes USE 4 Univers VERIO TEST 2-13 TIMES A ity of STRIPS 00:00: DAY [place] strip 00 Medical Branch ONETOUCH Yes USE 4 JEAN Uni vers VERIO FLEX 2-13 DAY ity of METER Misc 00:00: [place] 00 Medical Branch ONETOUCH Yes USE 4 Univers DELICA PLUS 2-13 TIMES DAY ity of LANCET 33 00:00: [place] gauge Misc 00 Medical Branch NaCl 0.9% 2022- No 1000mL at 999 Uni vers (NS) bolus 05-09 mL/hr, ity of infusion 19:45: 19:40 1,000 mL, [place] 1,000 mL 00 :00 IV Medical Infusion, Branch ONCE, 1 dose, On 05/09/22 at 1345, JATIN PNV 0 2022- No Take by Univers no.95/pedro pablo 05-09 mouth. ity o f us 19:18: 00:00 [place] fum/folic 27 :00 Medical ac Branch ( ORAL) PNV 2022- No Take by Univers no.95/pedro pablo 05-09 mouth. ity o f us 19:18: 00:00 [place] fum/folic 27 :00 Medical ac Branch ( ORAL) acetaminoph 2022- No 650mg 650 mg, U nivers en 05-09 Oral, ity of (TYLENOL) 19:00: 18:50 ONCE, 1 [place] tablet 650 00 :00 dose, On Medic al mg Sat Branch 05/09/22 at 1300, JATIN PNV 0 Yes Take by Univers no.95/pedro pablo 05-09 mouth. ity of us 15:09: [place] fum/folic 58 Medical ac Branch ( ORAL) nirmatrelvi Yes [id number] 3{tbl} Take 3 Univers r-ritonavir 1-21 tablets by it y of 300 mg (150 00:00: mouth in [place] mg x 2)-100 00 the Medical mg tablet morning Branch and 3 tablets [facility] evening. [facility] [id number] 3{tbl} Take 3 Univers r-ritonavir 1-21 tablets by it y of 300 mg (150 00:00: mouth in [place] mg x 2)-100 00 the Medical mg tablet morning Branch and 3 tablets in the evening. nirnhtrelvi Yes [id number] 3{tbl} Take 3 Univers r-ritonavir 1-21 tablets by it y of 300 mg (150 00:00: mouth in [place] mg x 2)-100 00 the Medical mg tablet morning Branch and 3 [facility]. [facility] [id number] 3{tbl} Take 3 Univers r-ritonavir 1-21 tablets by it y of 300 mg (150 00:00: mouth in [place] mg x 2)-100 00 the Medical mg tablet morning Branch and 3 tablets in the evening. nirnhtrelvi Yes [id number] 3{tbl} Take 3 Univers r-ritonavir 1-21 tablets by it y of 300 mg (150 00:00: mouth in [place] mg x 2)-100 00 the Medical mg tablet morning Branch and 3 tablets in the evening. [facility] [id number] 3{tbl} Take 3 Univers r-ritonavir 1-21 tablets by it y of 300 mg (150 00:00: mouth in [place] mg x 2)-100 00 the Medical mg tablet morning Branch and 3 tablets in the evening. nirnhtrelvi Yes [id number] 3{tbl} Take 3 Univers r-ritonavir 1-21 tablets by it y of 300 mg (150 00:00: mouth in [place] mg x 2)-100 00 the Medical mg tablet morning Branch and 3 tablets in the evening. nirnhtrelvi 0 Yes [id number] 3{tbl} Take 3 Univers r-ritonavir 1-21 tablets by it y of 300 mg (150 00:00: mouth in [place] mg x 2)-100 00 the Medical mg tablet morning Branch and 3 tablets in the evening. [facility] Yes [id number] 3{tbl} Take 3 Univers r-ritonavir 1-21 tablets by it y of 300 mg (150 00:00: mouth in [place] mg x 2)-100 00 the Medical mg tablet morning Branch and 3 tablets in the evening. [facility] Yes [id number] 3{tbl} Take 3 Univers r-ritonavir 1-21 tablets by it y of 300 mg (150 00:00: mouth in [place] mg x 2)-100 00 the Medical mg tablet morning Branch and 3 tablets in the evening. [facility] Yes [id number] 3{tbl} Take 3 Univers r-ritonavir 1-21 tablets by it y of 300 mg (150 00:00: mouth in [place] mg x 2)-100 00 the Medical mg tablet morning Branch and 3 tablets in the evening. [facility] Yes [id number] 3{tbl} Take 3 Univers r-ritonavir 1-21 tablets by it y of 300 mg (150 00:00: mouth in [place] mg x 2)-100 00 the Medical mg tablet morning Branch and 3 tablets in the evening. [facility] Yes [id number] 3{tbl} Take 3 Univers r-ritonavir 1-21 tablets by it y of 300 mg (150 00:00: mouth in [place] mg x 2)-100 00 the Medical mg tablet morning Branch and 3 tablets in the evening. [facility] Yes [id number] 3{tbl} Take 3 Univers r-ritonavir 1-21 tablets by it y of 300 mg (150 00:00: mouth in [place] mg x 2)-100 00 the Medical mg tablet morning Branch and 3 tablets in the evening. [facility] Yes [id number] 3{tbl} Take 3 Univers r-ritonavir 1-21 tablets by it y of 300 mg (150 00:00: mouth in [place] mg x 2)-100 00 the Medical mg tablet morning Branch and 3 tablets [facility] evening. [facility] Yes [id number] 3{tbl} Take 3 Univers r-ritonavir 1-21 tablets by it y of 300 mg (150 00:00: mouth in [place] mg x 2)-100 00 the Medical mg tablet morning Branch and 3 tablets in the evening. [facility] Yes [id number] 3{tbl} Take 3 Univers r-ritonavir 1-21 tablets by it y of 300 mg (150 00:00: mouth in [place] mg x 2)-100 00 the Medical mg tablet morning Branch and 3 tablets in the evening. nirnhtrelvi 0 Yes [id number] 3{tbl} Take 3 Univers r-ritonavir 1-21 tablets by it y of 300 mg (150 00:00: mouth in [place] mg x 2)-100 00 the Medical mg tablet morning Branch and 3 tablets in the evening. [facility] Yes [id number] 3{tbl} Take 3 Univers r-ritonavir 1-21 tablets by it y of 300 mg (150 00:00: mouth in [place] mg x 2)-100 00 the Medical mg tablet morning Branch and 3 tablets in the evening. [facility] Yes [id number] 3{tbl} Take 3 Univers r-ritonavir 1-21 tablets by it y of 300 mg (150 00:00: mouth in [place] mg x 2)-100 00 the Medical mg tablet morning Branch and 3 tablets in the evening. [facility] 0 Yes [id number] 3{tbl} Take 3 Univers r-ritonavir 1-21 tablets by it y of 300 mg (150 00:00: mouth in [place] mg x 2)-100 00 the Medical mg tablet morning Branch and 3 tablets in the evening. [facility] Yes [id number] 3{tbl} Take 3 [facility] r-ritonavir 1-21 tablets by it y of 300 mg (150 00:00: mouth in [place] mg x 2)-100 00 the Medical mg tablet morning Branch and 3 tablets in the evening. [facility] 0 Yes [id number] 3{tbl} Take 3 Univers r-ritonavir 1-21 tablets by it y of 300 mg (150 00:00: mouth in [place] mg x 2)-100 00 the Medical mg tablet morning Branch and 3 [facility]. [facility] Yes [id number] 3{tbl} Take 3 Univers r-ritonavir 1-21 tablets by it y of 300 mg (150 00:00: mouth in [place] mg x 2)-100 00 the Medical mg tablet morning Branch and 3 tablets in the evening. nirnhtrelvi 0 Yes [id number] 3{tbl} Take 3 Univers r-ritonavir 1-21 tablets by it y of 300 mg (150 00:00: mouth in [place] mg x 2)-100 00 the Medical mg tablet morning Branch and 3 tablets [facility] the evening. [facility] [id number] 3{tbl} Take 3 [facility] r-ritonavir 1-21 tablets by it y of 300 mg (150 00:00: mouth in [place] mg x 2)-100 00 the Medical mg tablet morning Branch and 3 tablets [facility] evening. [facility] No [id number] 3{tbl} Take 3 Univers r-ritonavir 1-21 03-20 tablets by i ty of 300 mg (150 00:00: 00:00 mouth in [place] mg x 2)-100 00 :00 the Medical mg tablet morning Branch and 3 tablets in the evening. enoxaparin Yes [id number] 40mg inject 0.4 Univers (LOVENOX) 1-11 mL under ity of 40 mg/0.4 00:00: [place] 00 in the Medical injection morning. Branch enoxaparin 0 Yes [id number] 40mg inject 0.4 [facility] (LOVENOX) 1-11 mL under ity of 40 mg/0.4 00:00: [place] mL 00 in the Medical injection morning. Branch enoxaparin 0 Yes [id number] 40mg inject 0.4 [facility] (LOVENOX) 1-11 mL under ity of 40 mg/0.4 00:00: [place] mL 00 in the Medical injection morning. Branch enoxaparin 2022- No [id number] 40mg inject 0.4 [facility] (LOVENOX) 04-29 01-21 mL under ity o f 40 mg/0.4 00:00: 00:00 the skin [place] mL 00 :00 in the Medical injection morning. Branch NaCl 0.9% 2021-04- No 1000mL at 999 Uni vers (NS) bolus -14 11-14 mL/hr, ity of infusion 09:30: 21:29 1,000 mL, [place] 1,000 mL 00 :00 IV Medical Infusion, Branch ONCE, 1 dose, On Wed03/02/22 at 0330, STAT acetaminoph 2021-04 No 1000mg 1,000 mg, [facility] en -14 11-14 Oral, ity of (TYLENOL) 06:00: 05:55 ONCE, 1 [place] tablet 00 :00 dose, On Medical 1,[address] [facility] 03/02/22 at 0000, JATIN NaCl 0.9% 2021-04 No 1000mL at 999 Uni vers (NS) bolus -14 11-14 mL/hr, ity of infusion 06:00: 07:16 1,000 mL, [place] as 1,000 mL 00 :00 IV Medical Infusion, Branch ONCE, 1 dose, On Wed03/02/22 at 0000, STAT proMETHazin 2021-04 Yes [id number] 25mg Take 1 [facility] e 25 mg 1-14 tablet by ity of tablet 00:00: mouth [place] 00 every 6 Medical (six) Branch hours as needed for N/V unresponsi ve to Ondansetro n. proMETHazin 2021-04 Yes [id number] 25mg Take 1 [facility] e 25 mg 1-14 tablet by ity of tablet 00:00: mouth [place] 00 every 6 Medical (six) Branch hours as needed for N/V unresponsi ve to Ondansetro n. proMETHazin 2021-04 Yes [id number] 25mg Take 1 [facility] e 25 mg 1-14 tablet by ity of tablet 00:00: mouth [place] 00 every 6 Medical (six) Branch hours as needed for N/V unresponsi ve to Ondansetro n. proMETHazin 2021-04 Yes [id number] 25mg Take 1 [facility] e 25 mg 1-14 tablet by ity of tablet 00:00: mouth [place] 00 every 6 Medical (six) Branch hours as needed for N/V unresponsi ve to Ondansetro n. proMETHazin 2021-04 Yes [id number] 25mg Take 1 [facility] e 25 mg 1-14 tablet by ity of tablet 00:00: mouth [place] 00 every 6 Medical (six) Branch hours as needed for N/V unresponsi ve to Ondansetro n. proMETHazin 2021-04 Yes [id number] 25mg Take 1 [facility] e 25 mg 1-14 tablet by ity of tablet 00:00: mouth [place] 00 every 6 Medical (six) Branch hours as needed for N/V unresponsi ve to Ondansetro n. proMETHazin 2021-04 Yes [id number] 25mg Take 1 [facility] e 25 mg 1-14 tablet by ity of tablet 00:00: mouth [place] 00 every 6 Medical (six) Branch hours as needed for N/V unresponsi ve to Ondansetro n. proMETHazin 2021-04 Yes [id number] 25mg Take 1 [facility] e 25 mg 1-14 tablet by ity of tablet 00:00: mouth [place] 00 every 6 Medical (six) Branch hours as needed for N/V unresponsi ve to Ondansetro n. proMETHazin 2021-04 Yes [id number] 25mg Take 1 [facility] e 25 mg 1-14 tablet by ity of tablet 00:00: mouth [place] 00 every 6 Medical (six) Branch hours as needed for N/V unresponsi ve to Ondansetro n. proMETHazin 2021-04 Yes [id number] 25mg Take 1 [facility] e 25 mg 1-14 tablet by ity of tablet 00:00: mouth [place] 00 every 6 Medical (six) Branch hours as needed for N/V unresponsi ve to Ondansetro n. proMETHazin 2021-04- No [id number] 25mg Take 1 [facility] e 25 mg 1-14 01-21 tablet by ity of tablet 00:00: 00:00 mouth [place] 00 :00 every 6 Medical (six) Branch hours as needed for N/V unresponsi ve to Ondansetro n. amoxicillin Yes TAKE 1 Univ ers 500 mg 9-28 CAPSULE BY ity of capsule 00:00: MOUTH 3 [place] 00 TIMES A Medical DAY FOR 7 Branch DAYS amoxicillin 2-0 Yes TAKE 1 Univ ers 500 mg 9-28 CAPSULE BY ity of capsule 00:00: MOUTH 3 00 TIMES A Medical DAY FOR 7 Branch DAYS amoxicillin 2021-0 Yes TAKE 1 Univ ers 500 mg 9-28 CAPSULE BY ity of capsule 00:00: MOUTH 3 [place] 00 TIMES A Medical DAY FOR 7 Branch DAYS amoxicillin 2021-0 Yes TAKE 1 Univ ers 500 mg 9-28 CAPSULE BY ity of capsule 00:00: MOUTH 3 00 TIMES A Medical DAY FOR 7 Branch DAYS amoxicillin 2021-0 Yes TAKE 1 [facility] ers 500 mg 9-28 CAPSULE BY ity of capsule 00:00: MOUTH 3 00 TIMES A Medical DAY FOR 7 Branch DAYS amoxicillin 2021-0 Yes TAKE 1 Univ ers 500 mg 9-28 CAPSULE BY ity of capsule 00:00: MOUTH 3 00 TIMES A Medical DAY FOR 7 Branch DAYS amoxicillin 2021-0 Yes TAKE 1 Univ ers 500 mg 9-28 CAPSULE BY ity of capsule 00:00: MOUTH 3 [place] 00 TIMES A Medical DAY FOR 7 Branch DAYS amoxicillin 2021-0 Yes TAKE 1 Univ ers 500 mg 9-28 CAPSULE BY ity of capsule 00:00: MOUTH 3 00 TIMES A Medical DAY FOR 7 Branch DAYS amoxicillin 2021-0 Yes TAKE 1 Univ ers 500 mg 9-28 CAPSULE BY ity of capsule 00:00: MOUTH 3 [place] 00 TIMES A Medical DAY FOR 7 Branch DAYS amoxicillin 2021-0 Yes TAKE 1 Univ ers 500 mg 9-28 CAPSULE BY ity of capsule 00:00: MOUTH 3 [place] 00 TIMES A Medical DAY FOR 7 Branch DAYS amoxicillin 2021-0 Yes TAKE 1 Univ ers 500 mg 9-28 CAPSULE BY ity of capsule 00:00: MOUTH 3 00 TIMES A Medical DAY FOR 7 Branch DAYS amoxicillin 2021-0 Yes TAKE 1 Univ ers 500 mg 9-28 CAPSULE BY ity of capsule 00:00: MOUTH 3 [place] 00 TIMES A Medical DAY FOR 7 Branch DAYS amoxicillin 2021-0 Yes TAKE 1 Univ ers 500 mg 9-28 CAPSULE BY ity of capsule 00:00: MOUTH 3 [place] 00 TIMES A Medical DAY FOR 7 Branch DAYS amoxicillin 2021-0 Yes TAKE 1 Univ ers 500 mg 9-28 CAPSULE BY ity of capsule 00:00: MOUTH 3 00 TIMES A Medical DAY FOR 7 Branch DAYS amoxicillin 2021-0 Yes TAKE 1 Univ ers 500 mg 9-28 CAPSULE BY ity of capsule 00:00: MOUTH 3 [place] 00 TIMES A Medical DAY FOR 7 Branch DAYS amoxicillin 2021-0 Yes TAKE 1 Univ ers 500 mg 9-28 CAPSULE BY ity of capsule 00:00: MOUTH 3 [place] 00 TIMES A Medical DAY FOR 7 Branch DAYS amoxicillin 2021-0 Yes TAKE 1 Univ ers 500 mg 9-28 CAPSULE BY ity of capsule 00:00: MOUTH 3 [place] 00 TIMES A Medical DAY FOR 7 Branch DAYS amoxicillin 2021-0 Yes TAKE 1 Univ ers 500 mg 9-28 CAPSULE BY ity of capsule 00:00: MOUTH 3 [place] 00 TIMES A Medical DAY FOR 7 Branch DAYS amoxicillin 2021-0 Yes TAKE 1 Univ ers 500 mg 9-28 CAPSULE BY ity of capsule 00:00: MOUTH 3 [place] 00 TIMES A Medical DAY FOR 7 Branch DAYS amoxicillin 2021-0 Yes TAKE 1 Univ ers 500 mg 9-28 CAPSULE BY ity of capsule 00:00: MOUTH 3 [place] 00 TIMES A Medical DAY FOR 7 Branch DAYS amoxicillin 2021-0 Yes TAKE 1 Univ ers 500 mg 9-28 CAPSULE BY ity of capsule 00:00: MOUTH 3 [place] 00 TIMES A Medical DAY FOR 7 Branch DAYS amoxicillin 2021-0 Yes TAKE 1 Univ ers 500 mg 9-28 CAPSULE BY ity of capsule 00:00: MOUTH 3 [place] 00 TIMES A Medical DAY FOR 7 Branch DAYS amoxicillin 2021-0 2023- No TAKE 1 Uni vers 500 mg 9-28 -21 CAPSULE BY ity of capsule 00:00: 00:00 MOUTH 3 [place] 00 :00 TIMES A Medical DAY FOR 7 Branch DAYS enoxaparin 2021-0 Yes [id number] 40mg inject 0.4 [facility] (LOVENOX) 9-20 mL under ity of 40 mg/0.4 00:00: [place] mL 00 in the Medical injection morning. Branch enoxaparin 2021-0 Yes [id number] 40mg inject 0.4 [facility] (LOVENOX) 9-20 mL under ity of 40 mg/0.4 00:00: [place] mL 00 in the Medical injection morning. Branch enoxaparin 2021-0 Yes [id number] 40mg inject 0.4 [facility] (LOVENOX) 9-20 mL under ity of 40 mg/0.4 00:00: [place] mL 00 in the Medical injection morning. Branch enoxaparin 2021-0 Yes [id number] 40mg inject 0.4 [facility] (LOVENOX) 9-20 mL under ity of 40 mg/0.4 00:00: [place] mL 00 in the Medical injection morning. Branch enoxaparin 2021-0 Yes [id number] 40mg inject 0.4 [facility] (LOVENOX) 9-20 mL under ity of 40 mg/0.4 00:00: [place] mL 00 in the Medical injection morning. Branch enoxaparin 2021-0 Yes [id number] 40mg inject 0.4 [facility] (LOVENOX) 9-20 mL under ity of 40 mg/0.4 00:00: [place] mL 00 in the Medical injection morning. Branch enoxaparin 2021-0 Yes [id number] 40mg inject 0.4 [facility] (LOVENOX) 9-20 mL under ity of 40 mg/0.4 00:00: [place] mL 00 in the Medical injection morning. Branch enoxaparin 2021-0 Yes [id number] 40mg inject 0.4 [facility] (LOVENOX) 9-20 mL under ity of 40 mg/0.4 00:00: [place] mL 00 in the Medical injection morning. Branch enoxaparin 2021-0 Yes [id number] 40mg inject 0.4 [facility] (LOVENOX) 9-20 mL under ity of 40 mg/0.4 00:00: [place] mL 00 in the Medical injection morning. Branch enoxaparin 2021-0 Yes [id number] 40mg inject 0.4 [facility] (LOVENOX) 9-20 mL under ity of 40 mg/0.4 00:00: [place] mL 00 in the Medical injection morning. Branch enoxaparin 2021-0 Yes [id number] 40mg inject 0.4 [facility] (LOVENOX) 9-20 mL under ity of 40 mg/0.4 00:00: [place] mL 00 in the Medical injection morning. Branch enoxaparin 2021-0 Yes [id number] 40mg inject 0.4 [facility] (LOVENOX) 9-20 mL under ity of 40 mg/0.4 00:00: [place] mL 00 in the Medical injection morning. Branch enoxaparin 0 Yes [id number] 40mg inject 0.4 [facility] (LOVENOX) 9-20 mL under ity of 40 mg/0.4 00:00: [place] mL 00 in the Medical injection morning. Branch enoxaparin 0 Yes [id number] 40mg inject 0.4 [facility] (LOVENOX) 9-20 mL under ity of 40 mg/0.4 00:00: [place] mL 00 in the Medical injection morning. Branch enoxaparin 0 Yes [id number] 40mg inject 0.4 [facility] (LOVENOX) 9-20 mL under ity of 40 mg/0.4 00:00: [place] mL 00 in the Medical injection morning. Branch enoxaparin 0 Yes [id number] 40mg inject 0.4 [facility] (LOVENOX) 9-20 mL under ity of 40 mg/0.4 00:00: [place] mL 00 in the Medical injection morning. Branch enoxaparin 0 Yes [id number] 40mg inject 0.4 [facility] (LOVENOX) 9-20 mL under ity of 40 mg/0.4 00:00: [place] mL 00 in the Medical injection morning. Branch enoxaparin 0 Yes [id number] 40mg inject 0.4 [facility] (LOVENOX) 9-20 mL under ity of 40 mg/0.4 00:00: [place] mL 00 in the Medical injection morning. Branch enoxaparin 0 Yes [id number] 40mg inject 0.4 [facility] (LOVENOX) 9-20 mL under ity of 40 mg/0.4 00:00: [place] mL 00 in the Medical injection morning. Branch enoxaparin 0 Yes [id number] 40mg inject 0.4 [facility] (LOVENOX) 9-20 mL under ity of 40 mg/0.4 00:00: [place] mL 00 in the Medical injection morning. Branch enoxaparin 0 2023- No [id number] 40mg inject 0.4 [facility] (LOVENOX) 9-20 01-11 mL under ity o f 40 mg/0.4 00:00: 00:00 the skin [place] mL 00 :00 in the Medical injection morning. Branch enoxaparin 0 2022- No [id number] 40mg inject 0.4 [facility] (LOVENOX) 01-0611 mL under ity o f 40 mg/0.4 00:00: 00:00 the skin [place] mL 00 :00 in the Medical injection morning. Branch cephALEXin 2021- No 500mg Take 1 Uni vers 500 mg 01-02 capsule by ity of capsule 00:00: 04:59 mouth in [place] 00 :00 the Medical morning Branch and 1 capsule in the evening. Do all this for 7 days. multivit,ca 2021- No Take by Un flavioeusebio bhatt,mins/iro 12-25 mouth. ity o f n/folic 17:42: 00:00 [place] (WOMEN'S 25 :00 Medical DAILY Branch CAPLET ORAL) multivit,ca 2021- No Take by Diaz bhatt,mins/iro 12-25 mouth. ity o f n/folic 17:42: 00:00 [place] (WOMEN'S 25 :00 Medical DAILY Branch CAPLET ORAL) PNV 2021-0 Yes Take by Univers no.95/pedro pablo 9-08 mouth. ity of us 09:42: [place] fum/folic 44 Medical ac Branch ( ORAL) PNV 2021-0 Yes Take by [facility] no.95/pedro pablo 9-08 mouth. ity of us 09:42: [place] fum/folic 44 Medical ac Branch ( ORAL) PNV 2021-0 Yes Take by Univers no.95/pedro pablo 9-08 mouth. ity of us 09:42: [place] fum/folic 44 Medical ac Branch ( ORAL) PNV 2021-0 Yes Take by Univers no.95/pedro pablo 9-08 mouth. ity of us 09:42: [place] fum/folic 44 Medical ac Branch ( ORAL) PNV 2021-0 Yes Take by Univers no.95/pedro pablo 9-08 mouth. ity of us 09:42: [place] fum/folic 44 Medical ac Branch ( ORAL) PNV 2021-0 Yes Take by Univers no.95/pedro pablo 9-08 mouth. ity of us 09:42: [place] fum/folic 44 Medical ac Branch ( ORAL) PNV 2021-0 Yes Take by Univers no.95/pedro pablo 9-08 mouth. ity of us 09:42: [place] fum/folic 44 Medical ac Branch ( ORAL) PNV 2021-0 Yes Take by [facility] no.95/pedro pablo 9-08 mouth. ity of us 09:42: [place] fum/folic 44 Medical ac Branch ( ORAL) PNV 2021-0 Yes Take by [facility] no.95/pedro pablo 9-08 mouth. ity of us 09:42: [place] fum/folic 44 Medical ac Branch ( ORAL) PNV 2021-0 Yes Take by [facility] no.95/pedro pablo 9-08 mouth. ity of us 09:42: [place] fum/folic 44 Medical ac Branch ( ORAL) PNV 2021-0 Yes Take by [facility] no.95/pedro pablo 9-08 mouth. ity of us 09:42: [place] fum/folic 44 Medical ac Branch ( ORAL) PNV 2021-0 Yes Take by [facility] no.95/pedro pablo 9-08 mouth. ity of us 09:42: [place] fum/folic 44 Medical ac Branch ( ORAL) PNV 2021-0 Yes Take by [facility] no.95/pedro pablo 9-08 mouth. ity of us 09:42: [place] fum/folic 44 Medical ac Branch ( ORAL) PNV 2021-0 Yes Take by [facility] no.95/pedro pablo 9-08 mouth. ity of us 09:42: [place] fum/folic 44 Medical ac Branch ( ORAL) PNV 2021-0 Yes Take by Univers no.95/pedro pablo 9-08 mouth. ity of us 09:42: [place] fum/folic 44 Medical ac Branch ( ORAL) PNV 2021-0 Yes Take by Univers no.95/pedro pablo 9-08 mouth. ity of us 09:42: [place] fum/folic 44 Medical ac Branch ( ORAL) PNV 2021-0 Yes Take by Univers no.95/pedro pablo 9-08 mouth. ity of us 09:42: [place] fum/folic 44 Medical ac Branch ( ORAL) PNV 2021-0 Yes Take by Univers no.95/pedro pablo 9-08 mouth. ity of us 09:42: [place] fum/folic 44 Medical ac Branch ( ORAL) PNV 2021-0 Yes Take by [facility] no.95/pedro pablo 9-08 mouth. ity of us 09:42: [place] fum/folic 44 Medical ac Branch ( ORAL) PNV 2021-0 Yes Take by [facility] no.95/pedro pablo 9-08 mouth. ity of us 09:42: [place] fum/folic 44 Medical ac Branch ( ORAL) PNV 2021-0 Yes Take by [facility] no.95/pedro pablo 9-08 mouth. ity of us 09:42: [place] fum/folic 44 Medical ac Branch ( ORAL) PNV 2021-0 Yes Take by [facility] no.95/pedro pablo 9-08 mouth. ity of us 09:42: [place] fum/folic 44 Medical ac Branch ( ORAL) PNV 2021-0 Yes Take by [facility] no.95/pedro pablo 9-08 mouth. ity of 09:42: [place] fum/folic 44 Medical ac Branch ( ORAL) PNV 2021-0 Yes Take by [facility] no.95/pedro pablo 9-08 mouth. ity of 09:42: [place] fum/folic 44 Medical ac Branch ( ORAL) ketoconazol Yes USE Un[facility] s e 2 % 8-29 TOPICALLY ity of shampoo 00:00: 10 ML TO [place] SCALP 2 Medical TIMES A Branch WEEK ketoconazol Yes USE [facility] e 2 % 8-29 TOPICALLY ity of shampoo 00:00: 10 ML TO [place] SCALP 2 Medical TIMES A Branch WEEK ketoconazol Yes USE Un[facility] s e 2 % 8-29 TOPICALLY ity of shampoo 00:00: 10 ML TO [place] SCALP 2 Medical TIMES A Branch WEEK ketoconazol Yes USE [facility] s e 2 % 8-29 TOPICALLY ity of shampoo 00:00: 10 ML TO [place] SCALP 2 Medical TIMES A Branch WEEK ketoconazol Yes USE Un[facility] s e 2 % 8-29 TOPICALLY ity of shampoo 00:00: 10 ML TO [place] SCALP 2 Medical TIMES A Branch WEEK ketoconazol Yes USE Un[facility] s e 2 % 8-29 TOPICALLY ity of shampoo 00:00: 10 ML TO [place] SCALP 2 Medical TIMES A Branch WEEK ketoconazol Yes USE [facility] s e 2 % 8-29 TOPICALLY ity of shampoo 00:00: 10 ML TO [place] SCALP 2 Medical TIMES A Branch WEEK ketoconazol 0 Yes USE Un[facility] s e 2 % 8-29 TOPICALLY ity of shampoo 00:00: 10 ML TO [place] SCALP 2 Medical TIMES A Branch WEEK ketoconazol 0 Yes USE Univer s e 2 % 8-29 TOPICALLY ity of shampoo 00:00: 10 ML TO [place] SCALP 2 Medical TIMES A Branch WEEK ketoconazol 0 Yes USE [facility] s e 2 % 8-29 TOPICALLY ity of shampoo 00:00: 10 ML TO [place] SCALP 2 Medical TIMES A Branch WEEK ketoconazol 0 Yes USE Un[facility] s e 2 % 8-29 TOPICALLY ity of shampoo 00:00: 10 ML TO [place] SCALP 2 Medical TIMES A Branch WEEK ketoconazol 0 Yes USE Un[facility] s e 2 % 8-29 TOPICALLY ity of shampoo 00:00: 10 ML TO [place] SCALP 2 Medical TIMES A Branch WEEK ketoconazol 0 Yes USE [facility] s e 2 % 8-29 TOPICALLY ity of shampoo 00:00: 10 ML TO [place] SCALP 2 Medical TIMES A Branch WEEK ketoconazol 0 Yes USE [facility] e 2 % 8-29 TOPICALLY ity of shampoo 00:00: 10 ML TO [place] SCALP 2 Medical TIMES A Branch WEEK ketoconazol 0 Yes USE [facility] s e 2 % 8-29 TOPICALLY ity of shampoo 00:00: 10 ML TO [place] SCALP 2 Medical TIMES A Branch WEEK ketoconazol 2021-0 Yes USE [facility] s e 2 % 8-29 TOPICALLY ity of shampoo 00:00: 10 ML TO [place] SCALP 2 Medical TIMES A Branch WEEK ketoconazol 2021-0 Yes USE Univer s e 2 % 8-29 TOPICALLY ity of shampoo 00:00: 10 ML TO [place] SCALP 2 Medical TIMES A Branch WEEK ketoconazol 0 Yes USE [facility] s e 2 % 8-29 TOPICALLY ity of shampoo 00:00: 10 ML TO [place] SCALP 2 Medical TIMES A Branch WEEK ketoconazol 0 Yes USE [facility] s e 2 % 8-29 TOPICALLY ity of shampoo 00:00: 10 ML TO [place] SCALP 2 Medical TIMES A Branch WEEK ketoconazol Yes USE [facility] s e 2 % 8-29 TOPICALLY ity of shampoo 00:00: 10 ML TO [place] SCALP 2 Medical TIMES A Branch WEEK ketoconazol Yes USE [facility] s e 2 % 8-29 TOPICALLY ity of shampoo 00:00: 10 ML TO [place] SCALP 2 Medical TIMES A Branch WEEK ketoconazol Yes USE [facility] s e 2 % 8-29 TOPICALLY ity of shampoo 00:00: 10 ML TO [place] SCALP 2 Medical TIMES A Branch WEEK ketoconazol Yes USE [facility] s e 2 % 8-29 TOPICALLY ity of shampoo 00:00: 10 ML TO [place] SCALP 2 Medical TIMES A Branch WEEK ketoconazol Yes USE [facility] s e 2 % 8-29 TOPICALLY ity of shampoo 00:00: 10 ML TO [place] SCALP 2 Medical TIMES A Branch WEEK ketoconazol Yes USE [facility] s e 2 % 8-29 TOPICALLY ity of shampoo 00:00: 10 ML TO [place] SCALP 2 Medical TIMES A Branch WEEK ketoconazol 2022- No USE Unive rs e 2 % 8-29 -21 TOPICALLY ity of shampoo 00:00: 00:00 10 ML TO [place] 00 :00 SCALP 2 Medical TIMES A Branch WEEK ketoconazol 2022- No USE Unive rs e 2 % 8-29 -21 TOPICALLY ity of shampoo 00:00: 00:00 10 ML TO [place] 00 :00 SCALP 2 Medical TIMES A Branch WEEK PNV 2021- No Take by [facility] no.95/pedro pablo 6- 06-23 mouth. ity o f us 21:31: 00:00 [place] fum/folic 31 :00 Medical ac Branch ( ORAL) acetaminoph 2021- No [id number] 650mg Take 2 [facility] en 6-10 09-08 tablets by ity of (TYLENOL) 00:00: 00:00 mouth [place] 325 mg 00 :00 every 6 Medical tablet (six) Branch hours as needed for Pain (scale 1-3) or Pain (scale 4-6). ibuprofen 2021- No [id number] 600mg Take 1 [facility] 600 mg 6-01 24- tablet by ity of tablet 00:00: 00:00 mouth [place] 00 :00 every 6 Medical (six) Branch hours as needed for Pain (scale 1-3) or Pain (scale 4-6). acetaminoph 2021- No [id number] 1{tbl} Take 1 U nivers en-codeine 09-09 09-08 tablet by ity of (TYLENOL-CO 00:00: 00:00 [place] DEINE #3) 00 :00 every 4 Medical 300-30 mg (four) Branch tablet hours as needed for Pain (scale 7-10). Indication s: acute pain enoxaparin 2021- No [id number] 100mg inject 1 [facility] (LOVENOX) 08-08 06-10 mL under ity o f 100 mg/mL 00:00: 00:00 the skin [place] injection 00 :00 every 12 Medica l (twelve) Branch hours for 60 days. doxylamine- 2021- No [id number] 1{tbl} Take 1 [facility] pyridoxine, 08-08- tablet by it y of vit B6, 00:00: 00:00 mouth [place] (DICLEGIS) 00 :00 SEE-INSTRU Med ical 10-10 mg CTIONS. Branch per tablet mv-min/iron Yes 1{tbl} QD Take 1 [facility] /folic/calc 9-[address] [facility]/vitK 13:17: [facility] daily. l MULTIVITAMI N ORAL) UNABLE TO Yes 1{tbl} QD 1 tablet [facility] FIND 9-[address] 13:17: Name: [facility] l control pill gabapentin Yes 300mg Take 300 [facility] (NEURONTIN) 9-[address] 300 mg 13:17: mouth [facility] capsule 36 needed. l mv-min/iron Yes 1{tbl} QD Take 1 [facility] /folic/calc 9-[address] ium/vitK 13:17: [facility] (WOMEN'[facility] 36 daily. l MULTIVITAMI N ORAL) UNABLE TO Yes 1{tbl} QD 1 tablet [facility] FIND 9-[address] 13:17: Name: [facility] l control pill gabapentin Yes 300mg Take 300 [facility] (NEURONTIN) 9-[address] 300 mg 13:17: mouth as [facility] capsule 36 needed. l albuterol 2021- No [id number] 2{puff} Inhale 2 [facility] 90 08-09 06-10 Puffs ity of mcg/actuati 00:00: 00:00 every 4 [place] inhaler 00 :00 (four) Medical hours as Branch needed for Wheezing or Shortness of Breath. inhalationa 2021- No [id number] Use as Univers l spacing 08-0910 with MDI ity o f device 00:00: 00:00 as [place] (BREATHERIT 00 :00 directed Medi adam E MDI Branch SPACER) famotidine 2016-0 Yes 20mg Take 1 Unive rs (PEPCID) 20 8-21 tablet by ity of mg tablet 00:00: mouth (two) Medical times Branch daily. famotidine 2017-0 Yes 20mg Take 1 Unive rs (PEPCID) 20 8-21 tablet by ity of mg tablet 00:00: mouth [place] (two) Medical times Branch daily. famotidine 2017-0 Yes 20mg Take 1 Unive rs (PEPCID) 20 8-21 tablet by ity of mg tablet 00:00: mouth [place] (two) Medical times Branch daily. famotidine 2017-0 Yes 20mg Take 1 Unive rs (PEPCID) 20 8-21 tablet by ity of mg tablet 00:00: mouth [place] (two) Medical times Branch daily. famotidine 2017-0 Yes 20mg Take 1 Unive rs (PEPCID) 20 8-21 tablet by ity of mg tablet 00:00: mouth 2 [place] (two) Medical times Branch daily. famotidine 2017-0 Yes 20mg Take 1 Unive rs (PEPCID) 20 8-21 tablet by ity of mg tablet 00:00: mouth 2 [place] (two) Medical times Branch daily. famotidine 2017-0 Yes 20mg Take 1 Unive rs (PEPCID) 20 8-21 tablet by ity of mg tablet 00:00: mouth (two) Medical times Branch daily. famotidine 2017-0 Yes 20mg Take 1 Unive rs (PEPCID) 20 8-21 tablet by ity of mg tablet 00:00: mouth (two) Medical times Branch daily. famotidine 2017-0 Yes 20mg Take 1 Un[facility] rs (PEPCID) 20 8-21 tablet by ity of mg tablet 00:00: mouth (two) Medical times Branch daily. famotidine 2017-0 Yes 20mg Take 1 [facility] rs (PEPCID) 20 8-21 tablet by ity of mg tablet 00:00: mouth (two) Medical times Branch daily. famotidine 2017-0 Yes 20mg Take 1 [facility] rs (PEPCID) 20 8-21 tablet by ity of mg tablet 00:00: mouth (two) Medical times Branch daily. famotidine 2017-0 Yes 20mg Take 1 [facility] rs (PEPCID) 20 8-21 tablet by ity of mg tablet 00:00: mouth (two) Medical times Branch daily. famotidine 2017-0 Yes 20mg Take 1 [facility] rs (PEPCID) 20 8-21 tablet by ity of mg tablet 00:00: mouth (two) Medical times Branch daily. famotidine 2017-0 Yes 20mg Take 1 Un[facility] rs (PEPCID) 20 8-21 tablet by ity of mg tablet 00:00: mouth (two) Medical times Branch daily. famotidine 2017-0 Yes 20mg Take 1 Un[facility] rs (PEPCID) 20 8-21 tablet by ity of mg tablet 00:00: mouth (two) Medical times Branch daily. famotidine 2017-0 Yes 20mg Take 1 Un[facility] rs (PEPCID) 20 8-21 tablet by ity of mg tablet 00:00: mouth (two) Medical times Branch daily. famotidine 2017-0 Yes 20mg Take 1 Un[facility] rs (PEPCID) 20 8-21 tablet by ity of mg tablet 00:00: mouth (two) Medical times Branch daily. famotidine 2017-0 Yes 20mg Take 1 Un[facility] rs (PEPCID) 20 8-21 tablet by ity of mg tablet 00:00: mouth 2 (two) Medical times Branch daily. famotidine 2017-0 Yes 20mg Take 1 Un[facility] rs (PEPCID) 20 8-21 tablet by ity of mg tablet 00:00: mouth 2 (two) Medical times Branch daily. famotidine 2017-0 Yes 20mg Take 1 Unive rs (PEPCID) 20 8-21 tablet by ity of mg tablet 00:00: mouth 2 (two) Medical times Branch daily. famotidine 2017-0 Yes 20mg Take 1 [facility] rs (PEPCID) 20 8-21 tablet by ity of mg tablet 00:00: mouth (two) Medical times Branch daily. famotidine 2017-0 Yes 20mg Take 1 Un[facility] rs (PEPCID) 20 8-21 tablet by ity of mg tablet 00:00: mouth (two) Medical times Branch daily. famotidine 2017-0 Yes 20mg Take 1 Unive rs (PEPCID) 20 8-21 tablet by ity of mg tablet 00:00: mouth (two) Medical times Branch daily. famotidine 2017-0 Yes 20mg Take 1 Un[facility] rs (PEPCID) 20 8-21 tablet by ity of mg tablet 00:00: mouth 2 (two) Medical times Branch daily. famotidine 2017-0 Yes 20mg Take 1 Unive rs (PEPCID) 20 8-21 tablet by ity of mg tablet 00:00: mouth (two) Medical times Branch daily. famotidine 2017-0 3- No 20mg Take 1 [facility] ers (PEPCID) 20 8-21 01-21 tablet by it y of mg tablet 00:00: 00:00 mouth [place] 00 :[place] (two) Medical times Branch daily. famotidine 2017-0 2023- No 20mg Take 1 Univ ers (PEPCID) 20 8-21 01-21 tablet by it y of mg tablet 00:00: 00:00 mouth [place] 00 :00 (two) Medical times Branch daily. famotidine 2017-0 2023- No 20mg Take 1 Univ ers (PEPCID) 12-07 tablet by it y of mg tablet 00:00: 00:00 [place] 00 :[place] (two) Medical times [place] daily. famotidine 2022- No 20mg Take 1 Univ ers (PEPCID) 12-07 tablet by it y of mg tablet 00:00: 00:00 [place] 00 :[place] (two) Medical times [place] daily. Immunizations Ordered Immunization Filled Date Status Comments Sour ce Name Immunization Name TDAP 2022-05-19 Completed [facility] 00:00:00 [facility] TDAP 2022-05-19 Completed [facility] 00:00:00 [facility] TDAP 2022-05-19 Completed [facility] of 00:00:00 [facility] TDAP 2022-05-19 Completed [facility] of 00:00:00 [facility] TDAP 2022-05-19 Completed [facility] 00[facility]00:00 [facility] TDAP 2022-05-19 Completed [facility] 00[facility]00:00 [facility] TDAP 2022-05-19 Completed [facility] 00:00:00 [facility] TDAP 2022-05-19 Completed [facility] 00:00:00 [facility] TDAP 2022-05-19 Completed [facility] 00:00:00 [facility] TDAP 2022-05-19 Completed [facility] 00:00:00 [facility] TDAP 2022-05-19 Completed [facility] 00:00:00 [facility] TDAP 2022-05-19 Completed [facility] 00:00:00 [facility] TDAP 2022-05-19 Completed [facility] 00:00:00 [facility] TDAP 2022-05-19 Completed [facility] 00:00:00 [facility] TDAP 2022-05-19 Completed [facility] 00:00:00 [facility] TDAP 2022-05-19 Completed [facility] 00:00:00 [facility] TDAP 2022-05-19 Completed [facility] 00:00:00 [facility] TDAP 2022-05-19 Completed [facility] 00:00:00 [facility] TDAP 2022-05-19 Completed [facility] 00:00:00 [facility] TDAP 2022-05-19 Completed [facility] 00:00:00 [facility] TDAP 2022-05-19 Completed [facility] 00:00:00 [facility] TDAP 2022-05-19 Completed [facility] 00:00:00 [facility] TDAP 2022-05-19 Completed [facility] 00:00:00 [facility] TDAP 2022-05-19 Completed [facility] 00[facility]00:00 [facility] TDAP 2022-05-19 Completed [facility] 00:00:00 [facility] TDAP 2022-05-19 Completed [facility] 00:00:00 [facility] TDAP 2022-05-19 Completed [facility] 00:00:00 [facility] TDAP 2022-05-19 Completed [facility] 00:00:00 [facility] TDAP 2022-05-19 Completed [facility] 00:00:00 [facility] TDAP 2022-05-19 Completed [facility] 00:00:00 [facility] TDAP 2022-05-19 Completed [facility] 00:00:00 [facility] TDAP 2022-05-19 Completed [facility] 00:00:00 [facility] TDAP 2022-05-19 Completed [facility] 00:00:00 [facility] TDAP 2022-05-19 Completed [facility] 00:00:00 [facility] TDAP 2022-05-19 Completed [facility] 00:00:00 [facility] TDAP 2022-05-19 Completed [facility] 00:00:00 [facility] TDAP 2022-05-19 Completed [facility] 00:00:00 [facility] TDAP 2022-05-19 Completed [facility] 00:00:00 [facility] TDAP 2022-05-19 Completed [facility] 00:00:00 [facility] TDAP 2022-05-19 Completed [facility] 00:00:00 [facility] TDAP 2022-05-19 Completed [facility] 00:00:00 [facility] TDAP 2022-05-19 Completed [facility] 00:00:00 [facility] TDAP 2022-05-19 Completed [facility] 00:00:00 [facility] TDAP 2022-05-19 Completed [facility] 00:00:00 [facility] TDAP 2022-05-19 Completed [facility] 00:00:00 [facility] TDAP 2022-05-19 Completed [facility] 00:00:00 [facility] Td 2017-07-11 Completed [facility] 00:00:00 [facility] Td 2017-07-11 Completed [facility] 00:00:00 [facility] Td 2017-07-11 Completed [facility] 00[facility]00:00 [facility] Td 2017-07-11 Completed [facility] 00:00:00 [facility] Td 2017-07-11 Completed [facility] 00:00:00 [facility] Td 2017-07-11 Completed [facility] 00:00:00 [facility] Td 2017-07-11 Completed [facility] 00:00:00 [facility] Td 2017-07-11 Completed [facility] 00:00:00 [facility] Td 2017-07-11 Completed [facility] 00:00:00 [facility] Td 2017-07-11 Completed [facility] 00:00:00 [facility] Td 2017-07-11 Completed [facility] 00:00:00 [facility] Td 2017-07-11 Completed [facility] 00:00:00 [facility] Td 2017-07-11 Completed [facility] 00:00:00 [facility] Td 2017-07-11 Completed [facility] 00:00:00 [facility] Td 2017-07-11 Completed [facility] 00:00:00 [facility] Td 2017-07-11 Completed [facility] 00:00:00 [facility] Td 2017-07-11 Completed [facility] 00:00:00 [facility] Td 2017-07-11 Completed [facility] 00:00:00 [facility] Td 2017-07-11 Completed [facility] 00:00:00 [facility] Td 2017-07-11 Completed [facility] 00:00:00 [facility] Td 2017-07-11 Completed [facility] 00:00:00 [facility] Td 2017-07-11 Completed [facility] 00:00:00 [facility] TD, NOS 2017-07-11 Completed [facility] 00:00:00 [facility] TD, NOS 2017-07-11 Completed [facility] 00:00:00 [facility] TD, NOS 2017-07-11 Completed [facility] 00:00:00 [facility] TD, NOS 2017-07-11 Completed [facility] 00:00:00 [facility] TD, NOS 2017-07-11 Completed [facility] 00:00:00 [facility] TD, NOS 2017-07-11 Completed [facility] 00:00:00 [facility] TD, NOS 2017-07-11 Completed [facility] 00:00:00 [facility] TD, NOS 2017-07-11 Completed [facility] 00:00:00 [facility] TD, NOS 2017-07-11 Completed [facility] 00:00:00 [facility] TD, NOS 2017-07-11 Completed [facility] 00:00:00 [facility] TD, NOS 2017-07-11 Completed [facility] 00:00:00 [facility] TD, NOS 2017-07-11 Completed [facility] 00:00:00 [facility] TD, NOS 2017-07-11 Completed [facility] 00:00:00 [facility] TD, NOS 2017-07-11 Completed [facility] 00:00:00 [facility] TD, NOS 2017-07-11 Completed [facility] 00:00:00 [facility] TD, NOS 2017-07-11 Completed [facility] 00:00:00 [facility] TD, NOS 2017-07-11 Completed [facility] 00:00:00 [facility] TD, NOS 2017-07-11 Completed [facility] 00:00:00 [facility] TD, NOS 2017-07-11 Completed [facility] 00:00:00 [facility] TD, NOS 2017-07-11 Completed [facility] 00:00:00 [facility] TD, NOS 2017-07-11 Completed [facility] 00:00:00 [facility] TD, NOS 2017-07-11 Completed [facility] 00:00:00 [facility] TD, NOS 2017-07-11 Completed [facility] 00:00:00 [facility] TD, NOS 2017-07-11 Completed [facility] 00:00:00 [facility] TD, NOS 2017-07-11 Completed [facility] 00:00:00 [facility] TD, NOS 2017-07-11 Completed [facility] 00:00:00 [facility] TD, NOS 2017-07-11 Completed [facility] 00:00:00 [facility] TD, NOS 2017-07-11 Completed [facility] 00:00:00 [facility] TD, NOS 2017-07-11 Completed [facility] 00:00:00 [facility] TD, NOS 2017-07-11 Completed [facility] 00:00:00 [facility] TD, NOS 2017-07-11 Completed [facility] 00:00:00 [facility] TD, NOS 2017-07-11 Completed [facility] 00:00:00 [facility] TD, NOS 2017-07-11 Completed [facility] 00:00:00 [facility] TD, NOS 2017-07-11 Completed [facility] 00:00:00 [facility] TD, NOS 2017-07-11 Completed [facility] 00:00:00 [facility] TD, NOS 2017-07-11 Completed [facility] 00:00:00 [facility] TD, NOS 2017-07-11 Completed [facility] 00:00:00 [facility] TD, NOS 2017-07-11 Completed [facility] 00:00:00 [facility] TD, NOS 2017-07-11 Completed [facility] 00:00:00 [facility] TD, NOS 2017-07-11 Completed [facility] 00:00:00 [facility] TD, NOS 2017-07-11 Completed [facility] 00:00:00 [facility] TD, NOS 2017-07-11 Completed [facility] 00:00:00 [facility] TD, NOS 2017-07-11 Completed [facility] 00:00:00 [facility] TD, NOS 2017-07-11 Completed [facility] 00:00:00 [facility] TD, NOS 2017-07-11 Completed [facility] 00:00:00 [facility] TD, NOS 2017-07-11 Completed [facility] 00:00:00 [facility] TD, NOS 2017-07-11 Completed [facility] 00:00:00 [facility] TD, NOS 2017-07-11 Completed [facility] 00:00:00 [facility] TD, NOS 2017-07-11 Completed [facility] 00:00:00 [facility] TD, NOS 2017-07-11 Completed [facility] 00:00:00 [facility] TD, NOS 2017-07-11 Completed [facility] 00:00:00 [facility] TDAP 2015-08-01 Completed [facility] 00:00:00 [facility] Influenza Virus 2015-08-01 Completed [facility]+ 00:00:00 [facility] TDAP 2015-08-01 Completed [facility] 00:00:00 [facility] Influenza Virus 2015-08-01 Completed [facility]+ 00:00:00 [facility] TDAP 2015-08-01 Completed [facility] 00:00:00 [facility] Influenza Virus 2015-08-01 Completed [facility] 3+ 00:00:00 [facility] TDAP 2015-08-01 Completed [facility] 00:00:00 [facility] Influenza Virus 2015-08-01 Completed [facility] 3+ 00:00:00 [facility] TDAP 2015-08-01 Completed [facility] 00:00:00 [facility] Influenza Virus 2015-08-01 Completed [facility] 3+ 00:00:00 [facility] TDAP 2015-08-01 Completed [facility] 00:00:00 [facility] Influenza Virus 2015-08-01 Completed [facility] 3+ 00:00:00 [facility] TDAP 2015-08-01 Completed [facility] 00:00:00 [facility] Influenza Virus 2015-08-01 Completed [facility] 3+ 00:00:00 [facility] TDAP 2015-08-01 Completed [facility] 00:00:00 [facility] Influenza Virus 2015-08-01 Completed [facility] 3+ 00:00:00 [facility] TDAP 2015-08-01 Completed [facility] 00:00:00 [facility] Influenza Virus 2015-08-01 Completed [facility] 3+ 00:00:00 [facility] TDAP 2015-08-01 Completed [facility] 00:00:00 [facility] Influenza Virus 2015-08-01 Completed [facility] 3+ 00:00:00 [facility] TDAP 2015-08-01 Completed [facility] 00:00:00 [facility] Influenza Virus 2015-08-01 Completed [facility] 3+ 00:00:00 [facility] TDAP 2015-08-01 Completed [facility] 00:00:00 [facility] Influenza Virus 2015-08-01 Completed [facility] 3+ 00:00:00 [facility] TDAP 2015-08-01 Completed [facility] 00:00:00 [facility] Influenza Virus 2015-08-01 Completed [facility] 3+ 00:00:00 [facility] TDAP 2015-08-01 Completed [facility] 00:00:00 [facility] Influenza Virus 2015-08-01 Completed [facility] 3+ 00:00:00 [facility] TDAP 2015-08-01 Completed [facility] 00:00:00 [facility] Influenza Virus 2015-08-01 Completed [facility] 3+ 00:00:00 [facility] TDAP 2015-08-01 Completed [facility] 00:00:00 [facility] Influenza Virus 2015-08-01 Completed [facility] 3+ 00:00:00 [facility] TDAP 2015-08-01 Completed [facility] 00:00:00 [facility] Influenza Virus 2015-08-01 Completed [facility] 3+ 00:00:00 [facility] TDAP 2015-08-01 Completed [facility] 00[facility]00:00 [facility] Influenza Virus 2015-08-01 Completed [facility] 3+ 00:00:00 [facility] TDAP 2015-08-01 Completed [facility] 00:00:00 [facility] Influenza Virus 2015-08-01 Completed [facility] 3+ 00:00:00 [facility] TDAP 2015-08-01 Completed [facility] 00:00:00 [facility] Influenza Virus 2015-08-01 Completed [facility] 3+ 00:00:00 [facility] TDAP 2015-08-01 Completed [facility] 00:00:00 [facility] Influenza Virus 2015-08-01 Completed [facility] 3+ 00:00:00 [facility] TDAP 2015-08-01 Completed [facility] 00:00:00 [facility] Influenza Virus 2015-08-01 Completed [facility] 3+ 00:00:00 [facility] TDAP 2015-08-01 Completed [facility] 00:00:00 [facility] Influenza Virus 2015-08-01 Completed [facility] 3+ 00:00:00 [facility] TDAP 2015-08-01 Completed [facility] 00[facility]00:00 [facility] Influenza Virus 2015-08-01 Completed [facility] 3+ 00:00:00 [facility] TDAP 2015-08-01 Completed [facility] 00:00:00 [facility] Influenza Virus 2015-08-01 Completed [facility] 3+ 00:00:00 [facility] TDAP 2015-08-01 Completed [facility] 00[facility]00:00 [facility] Influenza Virus 2015-08-01 Completed [facility] 3+ 00:00:00 [facility] TDAP 2015-08-01 Completed [facility] 00:00:00 [facility] Influenza Virus 2015-08-01 Completed [facility] 3+ 00:00:00 [facility] TDAP 2015-08-01 Completed [facility] 00:00:00 [facility] Influenza Virus 2015-08-01 Completed [facility] 3+ 00:00:00 [facility] TDAP 2015-08-01 Completed [facility] 00:00:00 [facility] Influenza Virus 2015-08-01 Completed [facility] 3+ 00:00:00 [facility] TDAP 2015-08-01 Completed [facility] 00:00:00 [facility] Influenza Virus 2015-08-01 Completed [facility] 3+ 00:00:00 [facility] TDAP 2015-08-01 Completed [facility] 00:00:00 [facility] Influenza Virus 2015-08-01 Completed [facility] 3+ 00:00:00 [facility] TDAP 2015-08-01 Completed [facility] 00:00:00 [facility] Influenza Virus 2015-08-01 Completed [facility] 3+ 00:00:00 [facility] TDAP 2015-08-01 Completed [facility] 00:00:00 [facility] Influenza Virus 2015-08-01 Completed [facility] 3+ 00:00:00 [facility] TDAP 2015-08-01 Completed [facility] 00:00:00 [facility] Influenza Virus 2015-08-01 Completed [facility] 3+ 00:00:00 [facility] TDAP 2015-08-01 Completed [facility] 00:00:00 [facility] Influenza Virus 2015-08-01 Completed [facility] 3+ 00:00:00 [facility] TDAP 2015-08-01 Completed [facility] 00:00:00 [facility] Influenza Virus 2015-08-01 Completed [facility] 3+ 00:00:00 [facility] TDAP 2015-08-01 Completed [facility] 00:00:00 [facility] Influenza Virus 2015-08-01 Completed [facility] 3+ 00:00:00 [facility] TDAP 2015-08-01 Completed [facility] 00:00:00 [facility] Influenza Virus 2015-08-01 Completed [facility] 3+ 00:00:00 [facility] TDAP 2015-08-01 Completed [facility] 00:00:00 [facility] Influenza Virus 2015-08-01 Completed [facility] 3+ 00:00:00 [facility] TDAP 2015-08-01 Completed [facility] 00[facility]00:00 [facility] Influenza Virus 2015-08-01 Completed [facility] 3+ 00:00:00 [facility] TDAP 2015-08-01 Completed [facility] 00:00:00 [facility] Influenza Virus 2015-08-01 Completed [facility] 3+ 00:00:00 [facility] TDAP 2015-08-01 Completed [facility] 00[facility]00:00 [facility] Influenza Virus 2015-08-01 Completed [facility] 3+ 00:00:00 [facility] TDAP 2015-08-01 Completed [facility] 00:00:00 [facility] Influenza Virus 2015-08-01 Completed [facility] 3+ 00:00:00 [facility] TDAP 2015-08-01 Completed [facility] 00:00:00 [facility] Influenza Virus 2015-08-01 Completed [facility] 3+ 00:00:00 [facility] TDAP 2015-08-01 Completed [facility] 00:00:00 [facility] Influenza Virus 2015-08-01 Completed [facility] 3+ 00:00:00 [facility] TDAP 2015-08-01 Completed [facility] 00:00:00 [facility] Influenza Virus 2015-08-01 Completed [facility] 3+ 00:00:00 [facility] TDAP 2015-08-01 Completed [facility] 00:00:00 [facility] Influenza Virus 2015-08-01 Completed [facility] 3+ 00:00:00 [facility] TDAP 2015-08-01 Completed [facility] 00:00:00 [facility] Influenza Virus 2015-08-01 Completed [facility] 3+ 00:00:00 [facility] TDAP 2015-08-01 Completed [facility] 00:00:00 [facility] Influenza Virus 2015-08-01 Completed [facility] 3+ 00:00:00 [facility] TDAP 2015-08-01 Completed [facility] 00:00:00 [facility] Influenza Virus 2015-08-01 Completed [facility] 3+ 00:00:00 [facility] TDAP 2015-08-01 Completed [facility] 00:00:00 [facility] Influenza Virus 2015-08-01 Completed [facility] 3+ 00:00:00 [facility] TDAP 2015-08-01 Completed [facility] 00:00:00 [facility] Influenza Virus 2015-08-01 Completed [facility] 3+ 00:00:00 [facility] TDAP 2015-08-01 Completed [facility] 00:00:00 [facility] Influenza Virus 2015-08-01 Completed [facility] 3+ 00:00:00 [facility] TDAP 2015-08-01 Completed [facility] 00:00:00 [facility] Influenza Virus 2015-08-01 Completed [facility] 3+ 00:00:00 [facility] TDAP 2015-08-01 Completed [facility] 00:00:00 [facility] Influenza Virus 2015-08-01 Completed [facility] 3+ 00:00:00 [facility] TDAP 2015-08-01 Completed [facility] 00[facility]00:00 [facility] Influenza Virus 2015-08-01 Completed [facility] 3+ 00:00:00 [facility] TDAP 2015-08-01 Completed [facility] 00[facility]00:00 [facility] Influenza Virus 2015-08-01 Completed [facility] 3+ 00:00:00 [facility] TDAP 2015-08-01 Completed [facility] 00:00:00 [facility] Influenza Virus 2015-08-01 Completed [facility] 3+ 00:00:00 [facility] TDAP 2015-08-01 Completed [facility] 00:00:00 [facility] Influenza Virus 2015-08-01 Completed [facility] 3+ 00:00:00 [facility] TDAP 2015-08-01 Completed [facility] 00:00:00 [facility] Influenza Virus 2015-08-01 Completed [facility] 3+ 00:00:00 [facility] TDAP 2015-08-01 Completed [facility] 00[facility]00:00 [facility] Influenza Virus 2015-08-01 Completed [facility] 3+ 00:00:00 [facility] TDAP 2015-08-01 Completed [facility] 00:00:00 [facility] Influenza Virus 2015-08-01 Completed [facility] 3+ 00:00:00 [facility] TDAP 2015-08-01 Completed [facility] 00:00:00 [facility] Influenza Virus 2015-08-01 Completed [facility] 3+ 00:00:00 [facility] TDAP 2015-08-01 Completed [facility] 00:00:00 [facility] Influenza Virus 2015-08-01 Completed [facility] 3+ 00:00:00 [facility] TDAP 2015-08-01 Completed [facility] 00:00:00 [facility] Influenza Virus 2015-08-01 Completed [facility] 3+ 00:00:00 [facility] TDAP 2015-08-01 Completed [facility] 00:00:00 [facility] Influenza Virus 2015-08-01 Completed [facility] 3+ 00:00:00 [facility] TDAP 2015-08-01 Completed [facility] 00[facility]00:00 [facility] Influenza Virus 2015-08-01 Completed [facility] 3+ 00:00:00 [facility] TDAP 2015-08-01 Completed [facility] 00[facility]00:00 [facility] Influenza Virus 2015-08-01 Completed [facility] 3+ 00:00:00 [facility] TDAP 2015-08-01 Completed [facility] 00:00:00 [facility] Influenza Virus 2015-08-01 Completed [facility] Vaccine Quad IM 3+ 00:00:00 [facility] TDAP 2015-08-01 Completed [facility] 00:00:00 [facility] Influenza Virus 2015-08-01 Completed [facility] Vaccine Quad IM 3+ 00:00:00 [facility] TDAP 2015-08-01 Completed [facility] 00:00:00 [facility] Influenza Virus 2015-08-01 Completed [facility] Vaccine Quad IM 3+ 00:00:00 [facility] TDAP 2015-08-01 Completed [facility] 00:00:00 [facility] Influenza Virus 2015-08-01 Completed [facility] Vaccine Quad IM 3+ 00:00:00 [facility] TDAP 2015-08-01 Completed [facility] 00:00:00 [facility] Influenza Virus 2015-08-01 Completed [facility] Vaccine Quad IM 3+ 00:00:00 [facility] HEPATITIS A 2010-04-10 Completed [facility] 00:00:00 [facility] HPV 2010-04-10 Completed [facility] 00:00:00 [facility] Influenza Virus 2010-04-10 Completed [facility] Vaccine 00:00:00 [facility] Influenza Virus 2010-04-10 Completed [facility] Vaccine (3+ yrs) 00:00:00 [facility] HEPATITIS A 2010-04-10 Completed [facility] 00:00:00 [facility] HPV 2010-04-10 Completed [facility] 00:00:00 [facility] Influenza Virus 2010-04-10 Completed [facility] Vaccine 00:00:00 [facility] Influenza Virus 2010-04-10 Completed [facility] Vaccine (3+ yrs) 00:00:00 [facility] HEPATITIS A 2010-04-10 Completed [facility] 00:00:00 [facility] HPV 2010-04-10 Completed [facility] 00:00:00 [facility] Influenza Virus 2010-04-10 Completed [facility] Vaccine 00:00:00 [facility] Influenza Virus 2010-04-10 Completed [facility] Vaccine (3+ yrs) 00:00:00 [facility] HEPATITIS A 2010-04-10 Completed [facility] 00:00:00 [facility] HPV 2010-04-10 Completed [facility] 00:00:00 [facility] Influenza Virus 2010-04-10 Completed [facility] Vaccine 00:00:00 [facility] Influenza Virus 2010-04-10 Completed [facility] Vaccine (3+ yrs) 00:00:00 [facility] HEPATITIS A 2010-04-10 Completed [facility] 00:00:00 [facility] HPV 2010-04-10 Completed [facility] 00:00:00 [facility] Influenza Virus 2010-04-10 Completed [facility] Vaccine 00:00:00 [facility] Influenza Virus 2010-04-10 Completed [facility] Vaccine (3+ yrs) 00:00:00 [facility] HEPATITIS A 2010-04-10 Completed [facility] 00:00:00 [facility] HPV 2010-04-10 Completed [facility] 00:00:00 [facility] Influenza Virus 2010-04-10 Completed [facility] Vaccine 00:00:00 [facility] Influenza Virus 2010-04-10 Completed [facility] Vaccine (3+ yrs) 00:00:00 [facility] HEPATITIS A 2010-04-10 Completed [facility] 00:00:00 [facility] HPV 2010-04-10 Completed [facility] 00:00:00 [facility] Influenza Virus 2010-04-10 Completed [facility] Vaccine 00:00:00 [facility] Influenza Virus 2010-04-10 Completed [facility] Vaccine (3+ yrs) 00:00:00 [facility] HEPATITIS A 2010-04-10 Completed [facility] 00:00:00 [facility] HPV 2010-04-10 Completed [facility] 00:00:00 [facility] Influenza Virus 2010-04-10 Completed [facility] Vaccine 00:00:00 [facility] Influenza Virus 2010-04-10 Completed [facility] Vaccine (3+ yrs) 00:00:00 [facility] HEPATITIS A 2010-04-10 Completed [facility] 00:00:00 [facility] HPV 2010-04-10 Completed [facility] 00:00:00 [facility] Influenza Virus 2010-04-10 Completed [facility] Vaccine 00:00:00 [facility] Influenza Virus 2010-04-10 Completed [facility] Vaccine (3+ yrs) 00:00:00 [facility] HEPATITIS A 2010-04-10 Completed [facility] 00:00:00 [facility] HPV 2010-04-10 Completed [facility] 00:00:00 [facility] Influenza Virus 2010-04-10 Completed [facility] Vaccine 00:00:00 [facility] Influenza Virus 2010-04-10 Completed [facility] Vaccine (3+ yrs) 00:00:00 [facility] HEPATITIS A 2010-04-10 Completed [facility] 00:00:00 [facility] HPV 2010-04-10 Completed [facility] 00:00:00 [facility] Influenza Virus 2010-04-10 Completed [facility] Vaccine 00:00:00 [facility] Influenza Virus 2010-04-10 Completed [facility] Vaccine (3+ yrs) 00:00:00 [facility] HEPATITIS A 2010-04-10 Completed [facility] 00:00:00 [facility] HPV 2010-04-10 Completed [facility] 00:00:00 [facility] Influenza Virus 2010-04-10 Completed [facility] Vaccine 00:00:00 [facility] Influenza Virus 2010-04-10 Completed [facility] Vaccine (3+ yrs) 00:00:00 [facility] HEPATITIS A 2010-04-10 Completed [facility] 00:00:00 [facility] HPV 2010-04-10 Completed [facility] 00:00:00 [facility] Influenza Virus 2010-04-10 Completed [facility] Vaccine 00:00:00 [facility] Influenza Virus 2010-04-10 Completed [facility] Vaccine (3+ yrs) 00:00:00 [facility] HEPATITIS A 2010-04-10 Completed [facility] 00:00:00 [facility] HPV 2010-04-10 Completed [facility] 00:00:00 [facility] Influenza Virus 2010-04-10 Completed [facility] Vaccine 00:00:00 [facility] Influenza Virus 2010-04-10 Completed [facility] Vaccine (3+ yrs) 00:00:00 [facility] HEPATITIS A 2010-04-10 Completed [facility] 00:00:00 [facility] HPV 2010-04-10 Completed [facility] 00:00:00 [facility] Influenza Virus 2010-04-10 Completed [facility] Vaccine 00:00:00 [facility] Influenza Virus 2010-04-10 Completed [facility] Vaccine (3+ yrs) 00:00:00 [facility] HEPATITIS A 2010-04-10 Completed [facility] 00:00:00 [facility] HPV 2010-04-10 Completed [facility] 00:00:00 [facility] Influenza Virus 2010-04-10 Completed [facility] Vaccine 00:00:00 [facility] Influenza Virus 2010-04-10 Completed [facility] Vaccine (3+ yrs) 00:00:00 [facility] HEPATITIS A 2010-04-10 Completed [facility] 00:00:00 [facility] HPV 2010-04-10 Completed [facility] 00:00:00 [facility] Influenza Virus 2010-04-10 Completed [facility] Vaccine 00:00:00 [facility] Influenza Virus 2010-04-10 Completed [facility] Vaccine (3+ yrs) 00:00:00 [facility] HEPATITIS A 2010-04-10 Completed [facility] 00:00:00 [facility] HPV 2010-04-10 Completed [facility] 00:00:00 [facility] Influenza Virus 2010-04-10 Completed [facility] Vaccine 00:00:00 [facility] Influenza Virus 2010-04-10 Completed [facility] Vaccine (3+ yrs) 00:00:00 [facility] HEPATITIS A 2010-04-10 Completed [facility] 00:00:00 [facility] HPV 2010-04-10 Completed [facility] 00:00:00 [facility] Influenza Virus 2010-04-10 Completed [facility] Vaccine 00:00:00 [facility] Influenza Virus 2010-04-10 Completed [facility] Vaccine (3+ yrs) 00:00:00 [facility] HEPATITIS A 2010-04-10 Completed [facility] 00:00:00 [facility] HPV 2010-04-10 Completed [facility] 00:00:00 [facility] Influenza Virus 2010-04-10 Completed [facility] Vaccine 00:00:00 [facility] Influenza Virus 2010-04-10 Completed [facility] Vaccine (3+ yrs) 00:00:00 [facility] HEPATITIS A 2010-04-10 Completed [facility] 00:00:00 [facility] HPV 2010-04-10 Completed [facility] 00:00:00 [facility] Influenza Virus 2010-04-10 Completed [facility] Vaccine 00:00:00 [facility] Influenza Virus 2010-04-10 Completed [facility] Vaccine (3+ yrs) 00:00:00 [facility] HEPATITIS A 2010-04-10 Completed [facility] 00:00:00 [facility] HPV 2010-04-10 Completed [facility] 00:00:00 [facility] Influenza Virus 2010-04-10 Completed [facility] Vaccine 00:00:00 [facility] Influenza Virus 2010-04-10 Completed [facility] Vaccine (3+ yrs) 00:00:00 [facility] HEPATITIS A 2010-04-10 Completed [facility] 00:00:00 [facility] HPV 2010-04-10 Completed [facility] 00:00:00 [facility] Influenza Virus 2010-04-10 Completed [facility] Vaccine 00:00:00 [facility] Influenza Virus 2010-04-10 Completed [facility] Vaccine (3+ yrs) 00:00:00 [facility] HEPATITIS A 2010-04-10 Completed [facility] 00:00:00 [facility] HPV 2010-04-10 Completed [facility] 00:00:00 [facility] Influenza Virus 2010-04-10 Completed [facility] Vaccine 00:00:00 [facility] Influenza Virus 2010-04-10 Completed [facility] Vaccine (3+ yrs) 00:00:00 [facility] HEPATITIS A 2010-04-10 Completed [facility] 00:00:00 [facility] HPV 2010-04-10 Completed [facility] 00:00:00 [facility] Influenza Virus 2010-04-10 Completed [facility] Vaccine 00:00:00 [facility] Influenza Virus 2010-04-10 Completed [facility] Vaccine (3+ yrs) 00:00:00 [facility] HEPATITIS A 2010-04-10 Completed [facility] 00:00:00 [facility] HPV 2010-04-10 Completed [facility] 00:00:00 [facility] Influenza Virus 2010-04-10 Completed [facility] Vaccine 00:00:00 [facility] Influenza Virus 2010-04-10 Completed [facility] Vaccine (3+ yrs) 00:00:00 [facility] HEPATITIS A 2010-04-10 Completed [facility] 00:00:00 [facility] HPV 2010-04-10 Completed [facility] 00:00:00 [facility] Influenza Virus 2010-04-10 Completed [facility] Vaccine 00:00:00 [facility] Influenza Virus 2010-04-10 Completed [facility] Vaccine (3+ yrs) 00:00:00 [facility] HEPATITIS A 2010-04-10 Completed [facility] 00:00:00 [facility] HPV 2010-04-10 Completed [facility] 00:00:00 [facility] Influenza Virus 2010-04-10 Completed [facility] Vaccine 00:00:00 [facility] Influenza Virus 2010-04-10 Completed [facility] Vaccine (3+ yrs) 00:00:00 [facility] HEPATITIS A 2010-04-10 Completed [facility] 00:00:00 [facility] HPV 2010-04-10 Completed [facility] 00:00:00 [facility] Influenza Virus 2010-04-10 Completed [facility] Vaccine 00:00:00 [facility] Influenza Virus 2010-04-10 Completed [facility] Vaccine (3+ yrs) 00:00:00 [facility] HEPATITIS A 2010-04-10 Completed [facility] 00:00:00 [facility] HPV 2010-04-10 Completed [facility] 00:00:00 [facility] Influenza Virus 2010-04-10 Completed [facility] Vaccine 00:00:00 [facility] Influenza Virus 2010-04-10 Completed [facility] Vaccine (3+ yrs) 00:00:00 [facility] HEPATITIS A 2010-04-10 Completed [facility] 00:00:00 [facility] HPV 2010-04-10 Completed [facility] 00:00:00 [facility] Influenza Virus 2010-04-10 Completed [facility] Vaccine 00:00:00 [facility] Influenza Virus 2010-04-10 Completed [facility] Vaccine (3+ yrs) 00:00:00 [facility] HEPATITIS A 2010-04-10 Completed [facility] 00:00:00 [facility] HPV 2010-04-10 Completed [facility] 00:00:00 [facility] Influenza Virus 2010-04-10 Completed [facility] Vaccine 00:00:00 [facility] Influenza Virus 2010-04-10 Completed [facility] Vaccine (3+ yrs) 00:00:00 [facility] HEPATITIS A 2010-04-10 Completed [facility] 00:00:00 [facility] HPV 2010-04-10 Completed [facility] 00:00:00 [facility] Influenza Virus 2010-04-10 Completed [facility] Vaccine 00:00:00 [facility] Influenza Virus 2010-04-10 Completed [facility] Vaccine (3+ yrs) 00:00:00 [facility] HEPATITIS A 2010-04-10 Completed [facility] 00:00:00 [facility] HPV 2010-04-10 Completed [facility] 00:00:00 [facility] Influenza Virus 2010-04-10 Completed [facility] Vaccine 00:00:00 [facility] Influenza Virus 2010-04-10 Completed [facility] Vaccine (3+ yrs) 00:00:00 [facility] HEPATITIS A 2010-04-10 Completed [facility] 00:00:00 [facility] HPV 2010-04-10 Completed [facility] 00:00:00 [facility] Influenza Virus 2010-04-10 Completed [facility] Vaccine 00:00:00 [facility] Influenza Virus 2010-04-10 Completed [facility] Vaccine (3+ yrs) 00:00:00 [facility] HEPATITIS A 2010-04-10 Completed [facility] 00:00:00 [facility] HPV 2010-04-10 Completed [facility] 00:00:00 [facility] Influenza Virus 2010-04-10 Completed [facility] Vaccine 00:00:00 [facility] Influenza Virus 2010-04-10 Completed [facility] Vaccine (3+ yrs) 00:00:00 [facility] HEPATITIS A 2010-04-10 Completed [facility] 00:00:00 [facility] HPV 2010-04-10 Completed [facility] 00:00:00 [facility] Influenza Virus 2010-04-10 Completed [facility] Vaccine 00:00:00 [facility] Influenza Virus 2010-04-10 Completed [facility] Vaccine (3+ yrs) 00:00:00 [facility] HEPATITIS A 2010-04-10 Completed [facility] 00:00:00 [facility] HPV 2010-04-10 Completed [facility] 00:00:00 [facility] Influenza Virus 2010-04-10 Completed [facility] Vaccine 00:00:00 [facility] Influenza Virus 2010-04-10 Completed [facility] Vaccine (3+ yrs) 00:00:00 [facility] HEPATITIS A 2010-04-10 Completed [facility] 00:00:00 [facility] HPV 2010-04-10 Completed [facility] 00:00:00 [facility] Influenza Virus 2010-04-10 Completed [facility] Vaccine 00:00:00 [facility] Influenza Virus 2010-04-10 Completed [facility] Vaccine (3+ yrs) 00:00:00 [facility] HEPATITIS A 2010-04-10 Completed [facility] 00:00:00 [facility] HPV 2010-04-10 Completed [facility] 00:00:00 [facility] Influenza Virus 2010-04-10 Completed [facility] Vaccine 00:00:00 [facility] Influenza Virus 2010-04-10 Completed [facility] Vaccine (3+ yrs) 00:00:00 [facility] HEPATITIS A 2010-04-10 Completed [facility] 00:00:00 [facility] HPV 2010-04-10 Completed [facility] 00:00:00 [facility] Influenza Virus 2010-04-10 Completed [facility] Vaccine 00:00:00 [facility] Influenza Virus 2010-04-10 Completed [facility] Vaccine (3+ yrs) 00:00:00 [facility] HEPATITIS A 2010-04-10 Completed [facility] 00:00:00 [facility] HPV 2010-04-10 Completed [facility] 00:00:00 [facility] Influenza Virus 2010-04-10 Completed [facility] Vaccine 00:00:00 [facility] Influenza Virus 2010-04-10 Completed [facility] Vaccine (3+ yrs) 00:00:00 [facility] HEPATITIS A 2010-04-10 Completed [facility] 00:00:00 [facility] HPV 2010-04-10 Completed [facility] 00:00:00 [facility] Influenza Virus 2010-04-10 Completed [facility] Vaccine 00:00:00 [facility] Influenza Virus 2010-04-10 Completed [facility] Vaccine (3+ yrs) 00:00:00 [facility] HEPATITIS A 2010-04-10 Completed [facility] 00:00:00 [facility] HPV 2010-04-10 Completed [facility] 00:00:00 [facility] Influenza Virus 2010-04-10 Completed [facility] Vaccine 00:00:00 [facility] Influenza Virus 2010-04-10 Completed [facility] Vaccine (3+ yrs) 00:00:00 [facility] HEPATITIS A 2010-04-10 Completed [facility] 00:00:00 [facility] HPV 2010-04-10 Completed [facility] 00:00:00 [facility] Influenza Virus 2010-04-10 Completed [facility] Vaccine 00:00:00 [facility] Influenza Virus 2010-04-10 Completed [facility] Vaccine (3+ yrs) 00:00:00 [facility] HEPATITIS A 2010-04-10 Completed [facility] 00:00:00 [facility] HPV 2010-04-10 Completed [facility] 00:00:00 [facility] Influenza Virus 2010-04-10 Completed [facility] Vaccine 00:00:00 [facility] Influenza Virus 2010-04-10 Completed [facility] Vaccine (3+ yrs) 00:00:00 [facility] HEPATITIS A 2010-04-10 Completed [facility] 00:00:00 [facility] HPV 2010-04-10 Completed [facility] 00:00:00 [facility] Influenza Virus 2010-04-10 Completed [facility] Vaccine 00:00:00 [facility] Influenza Virus 2010-04-10 Completed [facility] Vaccine (3+ yrs) 00:00:00 [facility] HEPATITIS A 2010-04-10 Completed [facility] 00:00:00 [facility] HPV 2010-04-10 Completed [facility] 00:00:00 [facility] Influenza Virus 2010-04-10 Completed [facility] Vaccine 00:00:00 [facility] Influenza Virus 2010-04-10 Completed [facility] Vaccine (3+ yrs) 00:00:00 [facility] HEPATITIS A 2010-04-10 Completed [facility] 00:00:00 [facility] HPV 2010-04-10 Completed [facility] 00:00:00 [facility] Influenza Virus 2010-04-10 Completed [facility] Vaccine 00:00:00 [facility] Influenza Virus 2010-04-10 Completed [facility] Vaccine (3+ yrs) 00:00:00 [facility] HEPATITIS A 2010-04-10 Completed [facility] 00:00:00 [facility] HPV 2010-04-10 Completed [facility] 00:00:00 [facility] Influenza Virus 2010-04-10 Completed [facility] Vaccine 00:00:00 [facility] Influenza Virus 2010-04-10 Completed [facility] Vaccine (3+ yrs) 00:00:00 [facility] HEPATITIS A 2010-04-10 Completed [facility] 00:00:00 [facility] HPV 2010-04-10 Completed [facility] 00:00:00 [facility] Influenza Virus 2010-04-10 Completed [facility] Vaccine 00:00:00 [facility] Influenza Virus 2010-04-10 Completed [facility] Vaccine (3+ yrs) 00:00:00 [facility] HEPATITIS A 2010-04-10 Completed [facility] 00:00:00 [facility] HPV 2010-04-10 Completed [facility] 00:00:00 [facility] Influenza Virus 2010-04-10 Completed [facility] Vaccine 00:00:00 [facility] Influenza Virus 2010-04-10 Completed [facility] Vaccine (3+ yrs) 00:00:00 [facility] HEPATITIS A 2010-04-10 Completed [facility] 00:00:00 [facility] HPV 2010-04-10 Completed [facility] 00:00:00 [facility] Influenza Virus 2010-04-10 Completed [facility] Vaccine 00:00:00 [facility] Influenza Virus 2010-04-10 Completed [facility] Vaccine (3+ yrs) 00:00:00 [facility] HEPATITIS A 2010-04-10 Completed [facility] 00:00:00 [facility] HPV 2010-04-10 Completed [facility] 00:00:00 [facility] Influenza Virus 2010-04-10 Completed [facility] Vaccine 00:00:00 [facility] Influenza Virus 2010-04-10 Completed [facility] Vaccine (3+ yrs) 00:00:00 [facility] HEPATITIS A 2010-04-10 Completed [facility] 00:00:00 [facility] HPV 2010-04-10 Completed [facility] 00:00:00 [facility] Influenza Virus 2010-04-10 Completed [facility] Vaccine 00:00:00 [facility] Influenza Virus 2010-04-10 Completed [facility] Vaccine (3+ yrs) 00:00:00 [facility] HEPATITIS A 2010-04-10 Completed [facility] 00:00:00 [facility] HPV 2010-04-10 Completed [facility] 00:00:00 [facility] Influenza Virus 2010-04-10 Completed [facility] Vaccine 00:00:00 [facility] Influenza Virus 2010-04-10 Completed [facility] Vaccine (3+ yrs) 00:00:00 [facility] HEPATITIS A 2010-04-10 Completed [facility] 00:00:00 [facility] HPV 2010-04-10 Completed [facility] 00:00:00 [facility] Influenza Virus 2010-04-10 Completed [facility] Vaccine 00:00:00 [facility] Influenza Virus 2010-04-10 Completed [facility] Vaccine (3+ yrs) 00:00:00 [facility] HEPATITIS A 2010-04-10 Completed [facility] 00:00:00 [facility] HPV 2010-04-10 Completed [facility] 00:00:00 [facility] Influenza Virus 2010-04-10 Completed [facility] Vaccine 00:00:00 [facility] Influenza Virus 2010-04-10 Completed [facility] Vaccine (3+ yrs) 00:00:00 [facility] HEPATITIS A 2010-04-10 Completed [facility] 00:00:00 [facility] HPV 2010-04-10 Completed [facility] 00:00:00 [facility] Influenza Virus 2010-04-10 Completed [facility] Vaccine 00:00:00 [facility] Influenza Virus 2010-04-10 Completed [facility] Vaccine (3+ yrs) 00:00:00 [facility] HEPATITIS A 2010-04-10 Completed [facility] 00:00:00 [facility] HPV 2010-04-10 Completed [facility] 00:00:00 [facility] Influenza Virus 2010-04-10 Completed [facility] Vaccine 00:00:00 [facility] Influenza Virus 2010-04-10 Completed [facility] Vaccine (3+ yrs) 00:00:00 [facility] HEPATITIS A 2010-04-10 Completed [facility] 00:00:00 [facility] HPV 2010-04-10 Completed [facility] 00:00:00 [facility] Influenza Virus 2010-04-10 Completed [facility] Vaccine 00:00:00 [facility] Influenza Virus 2010-04-10 Completed [facility] Vaccine (3+ yrs) 00:00:00 [facility] HEPATITIS A 2010-04-10 Completed [facility] 00:00:00 [facility] HPV 2010-04-10 Completed [facility] 00:00:00 [facility] Influenza Virus 2010-04-10 Completed [facility] Vaccine 00:00:00 [facility] Influenza Virus 2010-04-10 Completed [facility] Vaccine (3+ yrs) 00:00:00 [facility] HEPATITIS A 2010-04-10 Completed [facility] 00:00:00 [facility] HPV 2010-04-10 Completed [facility] 00:00:00 [facility] Influenza Virus 2010-04-10 Completed [facility] Vaccine 00:00:00 [facility] Influenza Virus 2010-04-10 Completed [facility] Vaccine (3+ yrs) 00:00:00 [facility] HEPATITIS A 2010-04-10 Completed [facility] 00:00:00 [facility] HPV 2010-04-10 Completed [facility] 00:00:00 [facility] Influenza Virus 2010-04-10 Completed [facility] Vaccine 00:00:00 [facility] Influenza Virus 2010-04-10 Completed [facility] Vaccine (3+ yrs) 00:00:00 [facility] HEPATITIS A 2010-04-10 Completed [facility] 00:00:00 [facility] HPV 2010-04-10 Completed [facility] 00:00:00 [facility] Influenza Virus 2010-04-10 Completed [facility] Vaccine 00:00:00 [facility] Influenza Virus 2010-04-10 Completed [facility] Vaccine (3+ yrs) 00:00:00 [facility] HEPATITIS A 2010-04-10 Completed [facility] 00:00:00 [facility] HPV 2010-04-10 Completed [facility] 00:00:00 [facility] Influenza Virus 2010-04-10 Completed [facility] Vaccine 00:00:00 [facility] Influenza Virus 2010-04-10 Completed [facility] Vaccine (3+ yrs) 00:00:00 [facility] HEPATITIS A 2010-04-10 Completed [facility] 00:00:00 [facility] HPV 2010-04-10 Completed [facility] 00:00:00 [facility] Influenza Virus 2010-04-10 Completed [facility] Vaccine 00:00:00 [facility] Influenza Virus 2010-04-10 Completed [facility] Vaccine (3+ yrs) 00:00:00 [facility] HEPATITIS A 2010-04-10 Completed [facility] 00:00:00 [facility] HPV 2010-04-10 Completed [facility] 00:00:00 [facility] Influenza Virus 2010-04-10 Completed [facility] Vaccine 00:00:00 [facility] Influenza Virus 2010-04-10 Completed [facility] Vaccine (3+ yrs) 00:00:00 [facility] HEPATITIS A 2010-04-10 Completed [facility] 00:00:00 [facility] HPV 2010-04-10 Completed [facility] 00:00:00 [facility] Influenza Virus 2010-04-10 Completed [facility] Vaccine 00:00:00 [facility] Influenza Virus 2010-04-10 Completed [facility] Vaccine (3+ yrs) 00:00:00 [facility] HEPATITIS A 2010-04-10 Completed [facility] 00:00:00 [facility] HPV 2010-04-10 Completed [facility] 00:00:00 [facility] Influenza Virus 2010-04-10 Completed [facility] Vaccine 00:00:00 [facility] Influenza Virus 2010-04-10 Completed [facility] Vaccine (3+ yrs) 00:00:00 [facility] HEPATITIS A 2010-04-10 Completed [facility] 00:00:00 [facility] HPV 2010-04-10 Completed [facility] 00:00:00 [facility] Influenza Virus 2010-04-10 Completed [facility] Vaccine 00:00:00 [facility] Influenza Virus 2010-04-10 Completed [facility] Vaccine (3+ yrs) 00:00:00 [facility] HEPATITIS A 2010-04-10 Completed [facility] 00:00:00 [facility] HPV 2010-04-10 Completed [facility] 00:00:00 [facility] Influenza Virus 2010-04-10 Completed [facility] Vaccine 00:00:00 [facility] Influenza Virus 2010-04-10 Completed [facility] Vaccine (3+ yrs) 00:00:00 [facility] HEPATITIS A 2010-04-10 Completed [facility] 00:00:00 [facility] HPV 2010-04-10 Completed [facility] 00:00:00 [facility] Influenza Virus 2010-04-10 Completed [facility] Vaccine 00:00:00 [facility] Influenza Virus 2010-04-10 Completed [facility] Vaccine (3+ yrs) 00:00:00 [facility] HEPATITIS A 2008-10-10 Completed [facility] 00:00:00 [facility] HPV 2008-10-10 Completed [facility] 00:00:00 [facility] HEPATITIS A 2008-10-10 Completed [facility] 00:00:00 [facility] HPV 2008-10-10 Completed [facility] 00:00:00 [facility] HEPATITIS A 2008-10-10 Completed [facility] 00:00:00 [facility] HPV 2008-10-10 Completed [facility] 00:00:00 [facility] HEPATITIS A 2008-10-10 Completed [facility] 00:00:00 [facility] HPV 2008-10-10 Completed [facility] 00:00:00 [facility] HEPATITIS A 2008-10-10 Completed [facility] 00:00:00 [facility] HPV 2008-10-10 Completed [facility] 00:00:00 [facility] HEPATITIS A 2008-10-10 Completed [facility] 00:00:00 [facility] HPV 2008-10-10 Completed [facility] 00:00:00 [facility] HEPATITIS A 2008-10-10 Completed [facility] 00[facility]00:00 [facility] HPV 2008-10-10 Completed [facility] 00:00:00 [facility] HEPATITIS A 2008-10-10 Completed [facility] 00:00:00 [facility] HPV 2008-10-10 Completed [facility] 00:00:00 [facility] HEPATITIS A 2008-10-10 Completed [facility] 00:00:00 [facility] HPV 2008-10-10 Completed [facility] 00:00:00 [facility] HEPATITIS A 2008-10-10 Completed [facility] 00:00:00 [facility] HPV 2008-10-10 Completed [facility] 00:00:00 [facility] HEPATITIS A 2008-10-10 Completed [facility] 00:00:00 [facility] HPV 2008-10-10 Completed [facility] 00:00:00 [facility] HEPATITIS A 2008-10-10 Completed [facility] 00:00:00 [facility] HPV 2008-10-10 Completed [facility] 00:00:00 [facility] HPV 2007-11-29 Completed [facility] 00:00:00 [facility] HPV 2007-11-29 Completed [facility] 00:00:00 [facility] HPV 2007-11-29 Completed [facility] 00:00:00 [facility] HPV 2007-11-29 Completed [facility] 00:00:00 [facility] HPV 2007-11-29 Completed [facility] 00:00:00 [facility] HPV 2007-11-29 Completed [facility] 00:00:00 [facility] HPV 2007-11-29 Completed [facility] 00:00:00 [facility] HPV 2007-11-29 Completed [facility] 00:00:00 [facility] HPV 2007-11-29 Completed [facility] 00:00:00 [facility] HPV 2007-11-29 Completed [facility] 00:00:00 [facility] HPV 2007-11-29 Completed [facility] 00:00:00 [facility] HPV 2007-11-29 Completed [facility] 00:00:00 [facility] HPV 2007-11-29 Completed [facility] 00:00:00 [facility] HPV 2007-11-29 Completed [facility] 00:00:00 [facility] HPV 2007-11-29 Completed [facility] 00:00:00 [facility] HPV 2007-11-29 Completed [facility] 00:00:00 [facility] HPV 2007-11-29 Completed [facility] 00:00:00 [facility] HPV 2007-11-29 Completed [facility] 00:00:00 [facility] HPV 2007-11-29 Completed [facility] 00:00:00 [facility] HPV 2007-11-29 Completed [facility] 00:00:00 [facility] HPV 2007-11-29 Completed [facility] 00:00:00 [facility] HPV 2007-11-29 Completed [facility] 00:00:00 [facility] HPV 2007-11-29 Completed [facility] 00:00:00 [facility] HPV 2007-11-29 Completed [facility] 00:00:00 [facility] HPV 2007-11-29 Completed [facility] 00:00:00 [facility] HPV 2007-11-29 Completed [facility] 00:00:00 [facility] HPV 2007-11-29 Completed [facility] 00:00:00 [facility] HPV 2007-11-29 Completed [facility] 00:00:00 [facility] HPV 2007-11-29 Completed [facility] 00:00:00 [facility] HPV 2007-11-29 Completed [facility] 00:00:00 [facility] HPV 2007-11-29 Completed [facility] 00:00:00 [facility] HPV 2007-11-29 Completed [facility] 00:00:00 [facility] HPV 2007-11-29 Completed [facility] 00:00:00 [facility] HPV 2007-11-29 Completed [facility] 00:00:00 [facility] HPV 2007-11-29 Completed [facility] 00:00:00 [facility] HPV 2007-11-29 Completed [facility] 00:00:00 [facility] HPV 2007-11-29 Completed [facility] 00:00:00 [facility] HPV 2007-11-29 Completed [facility] 00:00:00 [facility] HPV 2007-11-29 Completed [facility] 00:00:00 [facility] HPV 2007-11-29 Completed [facility] 00:00:00 [facility] HPV 2007-11-29 Completed [facility] 00:00:00 [facility] HPV 2007-11-29 Completed [facility] 00:00:00 [facility] HPV 2007-11-29 Completed [facility] 00:00:00 [facility] HPV 2007-11-29 Completed [facility] 00:00:00 [facility] HPV 2007-11-29 Completed [facility] 00:00:00 [facility] HPV 2007-11-29 Completed [facility] 00:00:00 [facility] HPV 2007-11-29 Completed [facility] 00:00:00 [facility] HPV 2007-11-29 Completed [facility] 00:00:00 [facility] HPV 2007-11-29 Completed [facility] 00:00:00 [facility] HPV 2007-11-29 Completed [facility] 00:00:00 [facility] HPV 2007-11-29 Completed [facility] 00:00:00 [facility] HPV 2007-11-29 Completed [facility] 00:00:00 [facility] HPV 2007-11-29 Completed [facility] 00:00:00 [facility] HPV 2007-11-29 Completed [facility] 00:00:00 [facility] HPV 2007-11-29 Completed [facility] 00:00:00 [facility] HPV 2007-11-29 Completed [facility] 00:00:00 [facility] HPV 2007-11-29 Completed [facility] 00:00:00 [facility] HPV 2007-11-29 Completed [facility] 00:00:00 [facility] HPV 2007-11-29 Completed [facility] 00:00:00 [facility] HPV 2007-11-29 Completed [facility] 00:00:00 [facility] HPV 2007-11-29 Completed [facility] 00:00:00 [facility] HPV 2007-11-29 Completed [facility] 00:00:00 [facility] HPV 2007-11-29 Completed [facility] 00:00:00 [facility] HPV 2007-11-29 Completed [facility] 00:00:00 [facility] HPV 2007-11-29 Completed [facility] 00:00:00 [facility] HPV 2007-11-29 Completed [facility] 00:00:00 [facility] HPV 2007-11-29 Completed [facility] 00:00:00 [facility] HPV 2007-11-29 Completed [facility] 00:00:00 [facility] HPV 2007-11-29 Completed [facility] 00:00:00 [facility] HPV 2007-11-29 Completed [facility] 00:00:00 [facility] HPV 2007-11-29 Completed [facility] 00:00:00 [facility] HPV 2007-11-29 Completed [facility] 00:00:00 [facility] HPV 2007-11-29 Completed [facility] 00:00:00 [facility] HEPATITIS A 2007-05-23 Completed [facility] 00:00:00 [facility] HPV 2007-05-23 Completed [facility] 00:00:00 [facility] Meningococcal 2007-05-23 Completed [facility] Polysaccharide 00:00:00 [facility] (groups A, C, Y and Branc h W-135) conjugate vaccine (MCV4P) TDAP 2007-05-23 Completed [facility] 00:00:00 [facility] HEPATITIS A 2007-05-23 Completed [facility] 00:00:00 [facility] HPV 2007-05-23 Completed [facility] 00:00:00 [facility] Meningococcal 2007-05-23 Completed [facility] Polysaccharide 00:00:00 [facility] (groups A, C, Y and Branc h W-135) conjugate vaccine (MCV4P) TDAP 2007-05-23 Completed [facility] 00:00:00 [facility] HEPATITIS A 2007-05-23 Completed [facility] 00:00:00 [facility] HPV 2007-05-23 Completed [facility] 00:00:00 [facility] Meningococcal 2007-05-23 Completed [facility] Polysaccharide 00:00:00 [facility] (groups A, C, Y and Branc h W-135) conjugate vaccine (MCV4P) TDAP 2007-05-23 Completed [facility] 00:00:00 [facility] HEPATITIS A 2007-05-23 Completed [facility] 00:00:00 [facility] HPV 2007-05-23 Completed [facility] 00:00:00 [facility] Meningococcal 2007-05-23 Completed [facility] Polysaccharide 00:00:00 [facility] (groups A, C, Y and Branc h W-135) conjugate vaccine (MCV4P) TDAP 2007-05-23 Completed [facility] 00:00:00 [facility] HEPATITIS A 2007-05-23 Completed [facility] 00:00:00 [facility] HPV 2007-05-23 Completed [facility] 00:00:00 [facility] Meningococcal 2007-05-23 Completed [facility] Polysaccharide 00:00:00 [facility] (groups A, C, Y and Branc h W-135) conjugate vaccine (MCV4P) TDAP 2007-05-23 Completed [facility] 00:00:00 [facility] HEPATITIS A 2007-05-23 Completed [facility] 00:00:00 [facility] HPV 2007-05-23 Completed [facility] 00:00:00 [facility] Meningococcal 2007-05-23 Completed [facility] Polysaccharide 00:00:00 [facility] (groups A, C, Y and Branc h W-135) conjugate vaccine (MCV4P) TDAP 2007-05-23 Completed [facility] 00:00:00 [facility] HEPATITIS A 2007-05-23 Completed [facility] 00:00:00 [facility] HPV 2007-05-23 Completed [facility] 00:00:00 [facility] Meningococcal 2007-05-23 Completed [facility] Polysaccharide 00:00:00 [facility] (groups A, C, Y and Branc h W-135) conjugate vaccine (MCV4P) TDAP 2007-05-23 Completed [facility] 00:00:00 [facility] HEPATITIS A 2007-05-23 Completed [facility] 00:00:00 [facility] HPV 2007-05-23 Completed [facility] 00:00:00 [facility] Meningococcal 2007-05-23 Completed [facility] Polysaccharide 00:00:00 [facility] (groups A, C, Y and Branc h W-135) conjugate vaccine (MCV4P) TDAP 2007-05-23 Completed [facility] 00:00:00 [facility] HEPATITIS A 2007-05-23 Completed [facility] 00:00:00 [facility] HPV 2007-05-23 Completed [facility] 00:00:00 [facility] Meningococcal 2007-05-23 Completed [facility] Polysaccharide 00:00:00 [facility] (groups A, C, Y and Branc h W-135) conjugate vaccine (MCV4P) TDAP 2007-05-23 Completed [facility] 00:00:00 [facility] HEPATITIS A 2007-05-23 Completed [facility] 00:00:00 [facility] HPV 2007-05-23 Completed [facility] 00:00:00 [facility] Meningococcal 2007-05-23 Completed [facility] Polysaccharide 00:00:00 [facility] (groups A, C, Y and Branc h W-135) conjugate vaccine (MCV4P) TDAP 2007-05-23 Completed [facility] 00:00:00 [facility] HEPATITIS A 2007-05-23 Completed [facility] 00:00:00 [facility] HPV 2007-05-23 Completed [facility] 00:00:00 [facility] Meningococcal 2007-05-23 Completed [facility] Polysaccharide 00:00:00 [facility] (groups A, C, Y and Branc h W-135) conjugate vaccine (MCV4P) TDAP 2007-05-23 Completed [facility] 00:00:00 [facility] HEPATITIS A 2007-05-23 Completed [facility] 00:00:00 [facility] HPV 2007-05-23 Completed [facility] 00:00:00 [facility] Meningococcal 2007-05-23 Completed [facility] Polysaccharide 00:00:00 [facility] (groups A, C, Y and Branc h W-135) conjugate vaccine (MCV4P) TDAP 2007-05-23 Completed [facility] 00:00:00 [facility] HEPATITIS A 2007-05-23 Completed [facility] 00:00:00 [facility] HPV 2007-05-23 Completed [facility] 00:00:00 [facility] Meningococcal 2007-05-23 Completed [facility] Polysaccharide 00:00:00 [facility] (groups A, C, Y and Branc h W-135) conjugate vaccine (MCV4P) TDAP 2007-05-23 Completed [facility] 00:00:00 [facility] HEPATITIS A 2007-05-23 Completed [facility] 00:00:00 [facility] HPV 2007-05-23 Completed [facility] 00:00:00 [facility] Meningococcal 2007-05-23 Completed [facility] Polysaccharide 00:00:00 [facility] (groups A, C, Y and Branc h W-135) conjugate vaccine (MCV4P) TDAP 2007-05-23 Completed [facility] 00:00:00 [facility] HEPATITIS A 2007-05-23 Completed [facility] 00:00:00 [facility] HPV 2007-05-23 Completed [facility] 00:00:00 [facility] Meningococcal 2007-05-23 Completed [facility] Polysaccharide 00:00:00 [facility] (groups A, C, Y and Branc h W-135) conjugate vaccine (MCV4P) TDAP 2007-05-23 Completed [facility] 00:00:00 [facility] HEPATITIS A 2007-05-23 Completed [facility] 00:00:00 [facility] HPV 2007-05-23 Completed [facility] 00:00:00 [facility] Meningococcal 2007-05-23 Completed [facility] Polysaccharide 00:00:00 [facility] (groups A, C, Y and Branc h W-135) conjugate vaccine (MCV4P) TDAP 2007-05-23 Completed [facility] 00:00:00 [facility] HEPATITIS A 2007-05-23 Completed [facility] 00:00:00 [facility] HPV 2007-05-23 Completed [facility] 00:00:00 [facility] Meningococcal 2007-05-23 Completed [facility] Polysaccharide 00:00:00 [facility] (groups A, C, Y and Branc h W-135) conjugate vaccine (MCV4P) TDAP 2007-05-23 Completed [facility] 00:00:00 [facility] HEPATITIS A 2007-05-23 Completed [facility] 00:00:00 [facility] HPV 2007-05-23 Completed [facility] 00:00:00 [facility] Meningococcal 2007-05-23 Completed [facility] Polysaccharide 00:00:00 [facility] (groups A, C, Y and Branc h W-135) conjugate vaccine (MCV4P) TDAP 2007-05-23 Completed [facility] 00:00:00 [facility] HEPATITIS A 2007-05-23 Completed [facility] 00:00:00 [facility] HPV 2007-05-23 Completed [facility] 00:00:00 [facility] Meningococcal 2007-05-23 Completed [facility] Polysaccharide 00:00:00 [facility] (groups A, C, Y and Branc h W-135) conjugate vaccine (MCV4P) TDAP 2007-05-23 Completed [facility] 00:00:00 [facility] HEPATITIS A 2007-05-23 Completed [facility] 00:00:00 [facility] HPV 2007-05-23 Completed [facility] 00:00:00 [facility] Meningococcal 2007-05-23 Completed [facility] Polysaccharide 00:00:00 [facility] (groups A, C, Y and Branc h W-135) conjugate vaccine (MCV4P) TDAP 2007-05-23 Completed [facility] 00:00:00 [facility] HEPATITIS A 2007-05-23 Completed [facility] 00:00:00 [facility] HPV 2007-05-23 Completed [facility] 00:00:00 [facility] Meningococcal 2007-05-23 Completed [facility] Polysaccharide 00:00:00 [facility] (groups A, C, Y and Branc h W-135) conjugate vaccine (MCV4P) TDAP 2007-05-23 Completed [facility] 00:00:00 [facility] HEPATITIS A 2007-05-23 Completed [facility] 00:00:00 [facility] HPV 2007-05-23 Completed [facility] 00:00:00 [facility] Meningococcal 2007-05-23 Completed [facility] Polysaccharide 00:00:00 [facility] (groups A, C, Y and Branc h W-135) conjugate vaccine (MCV4P) TDAP 2007-05-23 Completed [facility] 00:00:00 [facility] HEPATITIS A 2007-05-23 Completed [facility] 00:00:00 [facility] HPV 2007-05-23 Completed [facility] 00:00:00 [facility] Meningococcal 2007-05-23 Completed [facility] Polysaccharide 00:00:00 [facility] (groups A, C, Y and Branc h W-135) conjugate vaccine (MCV4P) TDAP 2007-05-23 Completed [facility] 00:00:00 [facility] HEPATITIS A 2007-05-23 Completed [facility] 00:00:00 [facility] HPV 2007-05-23 Completed [facility] 00:00:00 [facility] Meningococcal 2007-05-23 Completed [facility] Polysaccharide 00:00:00 [facility] (groups A, C, Y and Branc h W-135) conjugate vaccine (MCV4P) TDAP 2007-05-23 Completed [facility] 00:00:00 [facility] HEPATITIS A 2007-05-23 Completed [facility] 00:00:00 [facility] HPV 2007-05-23 Completed [facility] 00:00:00 [facility] Meningococcal 2007-05-23 Completed [facility] Polysaccharide 00:00:00 [facility] (groups A, C, Y and Branc h W-135) conjugate vaccine (MCV4P) TDAP 2007-05-23 Completed [facility] 00:00:00 [facility] HEPATITIS A 2007-05-23 Completed [facility] 00:00:00 [facility] HPV 2007-05-23 Completed [facility] 00:00:00 [facility] Meningococcal 2007-05-23 Completed [facility] Polysaccharide 00:00:00 [facility] (groups A, C, Y and Branc h W-135) conjugate vaccine (MCV4P) TDAP 2007-05-23 Completed [facility] 00:00:00 [facility] HEPATITIS A 2007-05-23 Completed [facility] 00:00:00 [facility] HPV 2007-05-23 Completed [facility] 00:00:00 [facility] Meningococcal 2007-05-23 Completed [facility] Polysaccharide 00:00:00 [facility] (groups A, C, Y and Branc h W-135) conjugate vaccine (MCV4P) TDAP 2007-05-23 Completed [facility] 00:00:00 [facility] HEPATITIS A 2007-05-23 Completed [facility] 00:00:00 [facility] HPV 2007-05-23 Completed [facility] 00:00:00 [facility] Meningococcal 2007-05-23 Completed [facility] Polysaccharide 00:00:00 [facility] (groups A, C, Y and Branc h W-135) conjugate vaccine (MCV4P) TDAP 2007-05-23 Completed [facility] 00:00:00 [facility] HEPATITIS A 2007-05-23 Completed [facility] 00:00:00 [facility] HPV 2007-05-23 Completed [facility] 00:00:00 [facility] Meningococcal 2007-05-23 Completed [facility] Polysaccharide 00:00:00 [facility] (groups A, C, Y and Branc h W-135) conjugate vaccine (MCV4P) TDAP 2007-05-23 Completed [facility] 00:00:00 [facility] HEPATITIS A 2007-05-23 Completed [facility] 00:00:00 [facility] HPV 2007-05-23 Completed [facility] 00:00:00 [facility] Meningococcal 2007-05-23 Completed [facility] Polysaccharide 00:00:00 [facility] (groups A, C, Y and Branc h W-135) conjugate vaccine (MCV4P) TDAP 2007-05-23 Completed [facility] 00:00:00 [facility] HEPATITIS A 2007-05-23 Completed [facility] 00:00:00 [facility] HPV 2007-05-23 Completed [facility] 00:00:00 [facility] Meningococcal 2007-05-23 Completed [facility] Polysaccharide 00:00:00 [facility] (groups A, C, Y and Branc h W-135) conjugate vaccine (MCV4P) TDAP 2007-05-23 Completed [facility] 00:00:00 [facility] HEPATITIS A 2007-05-23 Completed [facility] 00:00:00 [facility] HPV 2007-05-23 Completed [facility] 00:00:00 [facility] Meningococcal 2007-05-23 Completed [facility] Polysaccharide 00:00:00 [facility] (groups A, C, Y and Branc h W-135) conjugate vaccine (MCV4P) TDAP 2007-05-23 Completed [facility] 00:00:00 [facility] HEPATITIS A 2007-05-23 Completed [facility] 00:00:00 [facility] HPV 2007-05-23 Completed [facility] 00:00:00 [facility] Meningococcal 2007-05-23 Completed [facility] Polysaccharide 00:00:00 [facility] (groups A, C, Y and Branc h W-135) conjugate vaccine (MCV4P) TDAP 2007-05-23 Completed [facility] 00:00:00 [facility] HEPATITIS A 2007-05-23 Completed [facility] 00:00:00 [facility] HPV 2007-05-23 Completed [facility] 00:00:00 [facility] Meningococcal 2007-05-23 Completed [facility] Polysaccharide 00:00:00 [facility] (groups A, C, Y and Branc h W-135) conjugate vaccine (MCV4P) TDAP 2007-05-23 Completed [facility] 00:00:00 [facility] HEPATITIS A 2007-05-23 Completed [facility] 00:00:00 [facility] HPV 2007-05-23 Completed [facility] 00:00:00 [facility] Meningococcal 2007-05-23 Completed [facility] Polysaccharide 00:00:00 [facility] (groups A, C, Y and Branc h W-135) conjugate vaccine (MCV4P) TDAP 2007-05-23 Completed [facility] 00:00:00 [facility] HEPATITIS A 2007-05-23 Completed [facility] 00:00:00 [facility] HPV 2007-05-23 Completed [facility] 00:00:00 [facility] Meningococcal 2007-05-23 Completed [facility] Polysaccharide 00:00:00 [facility] (groups A, C, Y and Branc h W-135) conjugate vaccine (MCV4P) TDAP 2007-05-23 Completed [facility] 00:00:00 [facility] HEPATITIS A 2007-05-23 Completed [facility] 00:00:00 [facility] HPV 2007-05-23 Completed [facility] 00:00:00 [facility] Meningococcal 2007-05-23 Completed [facility] Polysaccharide 00:00:00 [facility] (groups A, C, Y and Branc h W-135) conjugate vaccine (MCV4P) TDAP 2007-05-23 Completed [facility] 00:00:00 [facility] HEPATITIS A 2007-05-23 Completed [facility] 00:00:00 [facility] HPV 2007-05-23 Completed [facility] 00:00:00 [facility] Meningococcal 2007-05-23 Completed [facility] Polysaccharide 00:00:00 [facility] (groups A, C, Y and Branc h W-135) conjugate vaccine (MCV4P) TDAP 2007-05-23 Completed [facility] 00:00:00 [facility] HEPATITIS A 2007-05-23 Completed [facility] 00:00:00 [facility] HPV 2007-05-23 Completed [facility] 00:00:00 [facility] Meningococcal 2007-05-23 Completed [facility] Polysaccharide 00:00:00 [facility] (groups A, C, Y and Branc h W-135) conjugate vaccine (MCV4P) TDAP 2007-05-23 Completed [facility] 00:00:00 [facility] HEPATITIS A 2007-05-23 Completed [facility] 00:00:00 [facility] HPV 2007-05-23 Completed [facility] 00:00:00 [facility] Meningococcal 2007-05-23 Completed [facility] Polysaccharide 00:00:00 [facility] (groups A, C, Y and Branc h W-135) conjugate vaccine (MCV4P) TDAP 2007-05-23 Completed [facility] 00:00:00 [facility] HEPATITIS A 2007-05-23 Completed [facility] 00:00:00 [facility] HPV 2007-05-23 Completed [facility] 00:00:00 [facility] Meningococcal 2007-05-23 Completed [facility] Polysaccharide 00:00:00 [facility] (groups A, C, Y and Branc h W-135) conjugate vaccine (MCV4P) TDAP 2007-05-23 Completed [facility] 00:00:00 [facility] HEPATITIS A 2007-05-23 Completed [facility] 00:00:00 [facility] HPV 2007-05-23 Completed [facility] 00:00:00 [facility] Meningococcal 2007-05-23 Completed [facility] Polysaccharide 00:00:00 [facility] (groups A, C, Y and Branc h W-135) conjugate vaccine (MCV4P) TDAP 2007-05-23 Completed [facility] 00:00:00 [facility] HEPATITIS A 2007-05-23 Completed [facility] 00:00:00 [facility] HPV 2007-05-23 Completed [facility] 00:00:00 [facility] Meningococcal 2007-05-23 Completed [facility] Polysaccharide 00:00:00 [facility] (groups A, C, Y and Branc h W-135) conjugate vaccine (MCV4P) TDAP 2007-05-23 Completed [facility] 00:00:00 [facility] HEPATITIS A 2007-05-23 Completed [facility] 00:00:00 [facility] HPV 2007-05-23 Completed [facility] 00:00:00 [facility] Meningococcal 2007-05-23 Completed [facility] Polysaccharide 00:00:00 [facility] (groups A, C, Y and Branc h W-135) conjugate vaccine (MCV4P) TDAP 2007-05-23 Completed [facility] 00:00:00 [facility] HEPATITIS A 2007-05-23 Completed [facility] 00:00:00 [facility] HPV 2007-05-23 Completed [facility] 00:00:00 [facility] Meningococcal 2007-05-23 Completed [facility] Polysaccharide 00:00:00 [facility] (groups A, C, Y and Branc h W-135) conjugate vaccine (MCV4P) TDAP 2007-05-23 Completed [facility] 00:00:00 [facility] HEPATITIS A 2007-05-23 Completed [facility] 00:00:00 [facility] HPV 2007-05-23 Completed [facility] 00:00:00 [facility] Meningococcal 2007-05-23 Completed [facility] Polysaccharide 00:00:00 [facility] (groups A, C, Y and Branc h W-135) conjugate vaccine (MCV4P) TDAP 2007-05-23 Completed [facility] 00:00:00 [facility] HEPATITIS A 2007-05-23 Completed [facility] 00:00:00 [facility] HPV 2007-05-23 Completed [facility] 00:00:00 [facility] Meningococcal 2007-05-23 Completed [facility] Polysaccharide 00:00:00 [facility] (groups A, C, Y and Branc h W-135) conjugate vaccine (MCV4P) TDAP 2007-05-23 Completed [facility] 00:00:00 [facility] HEPATITIS A 2007-05-23 Completed [facility] 00:00:00 [facility] HPV 2007-05-23 Completed [facility] 00:00:00 [facility] Meningococcal 2007-05-23 Completed [facility] Polysaccharide 00:00:00 [facility] (groups A, C, Y and Branc h W-135) conjugate vaccine (MCV4P) TDAP 2007-05-23 Completed [facility] 00:00:00 [facility] HEPATITIS A 2007-05-23 Completed [facility] 00:00:00 [facility] HPV 2007-05-23 Completed [facility] 00:00:00 [facility] Meningococcal 2007-05-23 Completed [facility] Polysaccharide 00:00:00 [facility] (groups A, C, Y and Branc h W-135) conjugate vaccine (MCV4P) TDAP 2007-05-23 Completed [facility] 00:00:00 [facility] HEPATITIS A 2007-05-23 Completed [facility] 00:00:00 [facility] HPV 2007-05-23 Completed [facility] 00:00:00 [facility] Meningococcal 2007-05-23 Completed [facility] Polysaccharide 00:00:00 [facility] (groups A, C, Y and Branc h W-135) conjugate vaccine (MCV4P) TDAP 2007-05-23 Completed [facility] 00:00:00 [facility] HEPATITIS A 2007-05-23 Completed [facility] 00:00:00 [facility] HPV 2007-05-23 Completed [facility] 00:00:00 [facility] Meningococcal 2007-05-23 Completed [facility] Polysaccharide 00:00:00 [facility] (groups A, C, Y and Branc h W-135) conjugate vaccine (MCV4P) TDAP 2007-05-23 Completed [facility] 00:00:00 [facility] HEPATITIS A 2007-05-23 Completed [facility] 00:00:00 [facility] HPV 2007-05-23 Completed [facility] 00:00:00 [facility] Meningococcal 2007-05-23 Completed [facility] Polysaccharide 00:00:00 [facility] (groups A, C, Y and Branc h W-135) conjugate vaccine (MCV4P) TDAP 2007-05-23 Completed [facility] 00:00:00 [facility] HEPATITIS A 2007-05-23 Completed [facility] 00:00:00 [facility] HPV 2007-05-23 Completed [facility] 00:00:00 [facility] Meningococcal 2007-05-23 Completed [facility] Polysaccharide 00:00:00 [facility] (groups A, C, Y and Branc h W-135) conjugate vaccine (MCV4P) TDAP 2007-05-23 Completed [facility] 00:00:00 [facility] HEPATITIS A 2007-05-23 Completed [facility] 00:00:00 [facility] HPV 2007-05-23 Completed [facility] 00:00:00 [facility] Meningococcal 2007-05-23 Completed [facility] Polysaccharide 00:00:00 [facility] (groups A, C, Y and Branc h W-135) conjugate vaccine (MCV4P) TDAP 2007-05-23 Completed [facility] 00:00:00 [facility] HEPATITIS A 2007-05-23 Completed [facility] 00:00:00 [facility] HPV 2007-05-23 Completed [facility] 00:00:00 [facility] Meningococcal 2007-05-23 Completed [facility] Polysaccharide 00:00:00 [facility] (groups A, C, Y and Branc h W-135) conjugate vaccine (MCV4P) TDAP 2007-05-23 Completed [facility] 00:00:00 [facility] HEPATITIS A 2007-05-23 Completed [facility] 00:00:00 [facility] HPV 2007-05-23 Completed [facility] 00:00:00 [facility] Meningococcal 2007-05-23 Completed [facility] Polysaccharide 00:00:00 [facility] (groups A, C, Y and Branc h W-135) conjugate vaccine (MCV4P) TDAP 2007-05-23 Completed [facility] 00:00:00 [facility] HEPATITIS A 2007-05-23 Completed [facility] 00:00:00 [facility] HPV 2007-05-23 Completed [facility] 00:00:00 [facility] Meningococcal 2007-05-23 Completed [facility] Polysaccharide 00:00:00 [facility] (groups A, C, Y and Branc h W-135) conjugate vaccine (MCV4P) TDAP 2007-05-23 Completed [facility] 00:00:00 [facility] HEPATITIS A 2007-05-23 Completed [facility] 00:00:00 [facility] HPV 2007-05-23 Completed [facility] 00:00:00 [facility] Meningococcal 2007-05-23 Completed [facility] Polysaccharide 00:00:00 [facility] (groups A, C, Y and Branc h W-135) conjugate vaccine (MCV4P) TDAP 2007-05-23 Completed [facility] 00:00:00 [facility] HEPATITIS A 2007-05-23 Completed [facility] 00:00:00 [facility] HPV 2007-05-23 Completed [facility] 00:00:00 [facility] Meningococcal 2007-05-23 Completed [facility] Polysaccharide 00:00:00 [facility] (groups A, C, Y and Branc h W-135) conjugate vaccine (MCV4P) TDAP 2007-05-23 Completed [facility] 00:00:00 [facility] HEPATITIS A 2007-05-23 Completed [facility] 00:00:00 [facility] HPV 2007-05-23 Completed [facility] 00:00:00 [facility] Meningococcal 2007-05-23 Completed [facility] Polysaccharide 00:00:00 [facility] (groups A, C, Y and Branc h W-135) conjugate vaccine (MCV4P) TDAP 2007-05-23 Completed [facility] 00:00:00 [facility] HEPATITIS A 2007-05-23 Completed [facility] 00:00:00 [facility] HPV 2007-05-23 Completed [facility] 00:00:00 [facility] Meningococcal 2007-05-23 Completed [facility] Polysaccharide 00:00:00 [facility] (groups A, C, Y and Branc h W-135) conjugate vaccine (MCV4P) TDAP 2007-05-23 Completed [facility] 00:00:00 [facility] HEPATITIS A 2007-05-23 Completed [facility] 00:00:00 [facility] HPV 2007-05-23 Completed [facility] 00:00:00 [facility] Meningococcal 2007-05-23 Completed [facility] Polysaccharide 00:00:00 [facility] (groups A, C, Y and Branc h W-135) conjugate vaccine (MCV4P) TDAP 2007-05-23 Completed [facility] 00:00:00 [facility] HEPATITIS A 2007-05-23 Completed [facility] 00:00:00 [facility] HPV 2007-05-23 Completed [facility] 00:00:00 [facility] Meningococcal 2007-05-23 Completed [facility] Polysaccharide 00:00:00 [facility] (groups A, C, Y and Branc h W-135) conjugate vaccine (MCV4P) TDAP 2007-05-23 Completed [facility] 00:00:00 [facility] HEPATITIS A 2007-05-23 Completed [facility] 00:00:00 [facility] HPV 2007-05-23 Completed [facility] 00:00:00 [facility] Meningococcal 2007-05-23 Completed [facility] Polysaccharide 00:00:00 [facility] (groups A, C, Y and Branc h W-135) conjugate vaccine (MCV4P) TDAP 2007-05-23 Completed [facility] 00:00:00 [facility] HEPATITIS A 2007-05-23 Completed [facility] 00:00:00 [facility] HPV 2007-05-23 Completed [facility] 00:00:00 [facility] Meningococcal 2007-05-23 Completed [facility] Polysaccharide 00:00:00 [facility] (groups A, C, Y and Branc h W-135) conjugate vaccine (MCV4P) TDAP 2007-05-23 Completed [facility] 00:00:00 [facility] HEPATITIS A 2007-05-23 Completed [facility] 00:00:00 [facility] HPV 2007-05-23 Completed [facility] 00:00:00 [facility] Meningococcal 2007-05-23 Completed [facility] Polysaccharide 00:00:00 [facility] (groups A, C, Y and Branc h W-135) conjugate vaccine (MCV4P) TDAP 2007-05-23 Completed [facility] 00:00:00 [facility] HEPATITIS A 2007-05-23 Completed [facility] 00:00:00 [facility] HPV 2007-05-23 Completed [facility] 00:00:00 [facility] Meningococcal 2007-05-23 Completed [facility] Polysaccharide 00:00:00 [facility] (groups A, C, Y and Branc h W-135) conjugate vaccine (MCV4P) TDAP 2007-05-23 Completed [facility] 00:00:00 [facility] HEPATITIS A 2007-05-23 Completed [facility] 00:00:00 [facility] HPV 2007-05-23 Completed [facility] 00:00:00 [facility] Meningococcal 2007-05-23 Completed [facility] Polysaccharide 00:00:00 [facility] (groups A, C, Y and Branc h W-135) conjugate vaccine (MCV4P) TDAP 2007-05-23 Completed [facility] 00:00:00 [facility] HEPATITIS A 2007-05-23 Completed [facility] 00:00:00 [facility] HPV 2007-05-23 Completed [facility] 00:00:00 [facility] Meningococcal 2007-05-23 Completed [facility] Polysaccharide 00:00:00 [facility] (groups A, C, Y and Branc h W-135) conjugate vaccine (MCV4P) TDAP 2007-05-23 Completed [facility] 00:00:00 [facility] HEPATITIS A 2007-05-23 Completed [facility] 00:00:00 [facility] HPV 2007-05-23 Completed [facility] 00:00:00 [facility] Meningococcal 2007-05-23 Completed [facility] Polysaccharide 00:00:00 [facility] (groups A, C, Y and Branc h W-135) conjugate vaccine (MCV4P) TDAP 2007-05-23 Completed [facility] 00:00:00 [facility] HEPATITIS A 2007-05-23 Completed [facility] 00:00:00 [facility] HPV 2007-05-23 Completed [facility] 00:00:00 [facility] Meningococcal 2007-05-23 Completed [facility] Polysaccharide 00:00:00 [facility] (groups A, C, Y and Branc h W-135) conjugate vaccine (MCV4P) TDAP 2007-05-23 Completed [facility] 00:00:00 [facility] HEPATITIS A 2007-05-23 Completed [facility] 00:00:00 [facility] HPV 2007-05-23 Completed [facility] 00:00:00 [facility] Meningococcal 2007-05-23 Completed [facility] Polysaccharide 00:00:00 [facility] (groups A, C, Y and Branc h W-135) conjugate vaccine (MCV4P) TDAP 2007-05-23 Completed [facility] 00:00:00 [facility] HEPATITIS A 2007-05-23 Completed [facility] 00:00:00 [facility] HPV 2007-05-23 Completed [facility] 00:00:00 [facility] Meningococcal 2007-05-23 Completed [facility] Polysaccharide 00:00:00 [facility] (groups A, C, Y and Branc h W-135) conjugate vaccine (MCV4P) TDAP 2007-05-23 Completed [facility] 00:00:00 [facility] DTAP 1997-04-25 Completed [facility] 00:00:00 [facility] IPV 1997-04-25 Completed [facility] 00:00:00 [facility] MMR 1997-04-25 Completed [facility] 00:00:00 [facility] DTAP 1997-04-25 Completed [facility] 00:00:00 [facility] IPV 1997-04-25 Completed [facility] 00:00:00 [facility] MMR 1997-04-25 Completed [facility] 00:00:00 [facility] DTAP 1997-04-25 Completed [facility] 00:00:00 [facility] IPV 1997-04-25 Completed [facility] 00:00:00 [facility] MMR 1997-04-25 Completed [facility] 00:00:00 [facility] DTAP 1997-04-25 Completed [facility] 00:00:00 [facility] IPV 1997-04-25 Completed [facility] 00:00:00 [facility] MMR 1997-04-25 Completed [facility] 00:00:00 [facility] DTAP 1997-04-25 Completed [facility] 00:00:00 [facility] IPV 1997-04-25 Completed [facility] 00:00:00 [facility] MMR 1997-04-25 Completed [facility] 00:00:00 [facility] DTAP 1997-04-25 Completed [facility] 00:00:00 [facility] IPV 1997-04-25 Completed [facility] 00:00:00 [facility] MMR 1997-04-25 Completed [facility] 00:00:00 [facility] DTAP 1997-04-25 Completed [facility] 00:00:00 [facility] IPV 1997-04-25 Completed [facility] 00:00:00 [facility] MMR 1997-04-25 Completed [facility] 00:00:00 [facility] DTAP 1997-04-25 Completed [facility] 00:00:00 [facility] IPV 1997-04-25 Completed [facility] 00:00:00 [facility] MMR 1997-04-25 Completed [facility] 00:00:00 [facility] DTAP 1997-04-25 Completed [facility] 00:00:00 [facility] IPV 1997-04-25 Completed [facility] 00:00:00 [facility] MMR 1997-04-25 Completed [facility] 00:00:00 [facility] DTAP 1997-04-25 Completed [facility] 00:00:00 [facility] IPV 1997-04-25 Completed [facility] 00:00:00 [facility] MMR 1997-04-25 Completed [facility] 00:00:00 [facility] DTAP 1997-04-25 Completed [facility] 00:00:00 [facility] IPV 1997-04-25 Completed [facility] 00:00:00 [facility] MMR 1997-04-25 Completed [facility] 00:00:00 [facility] DTAP 1997-04-25 Completed [facility] 00:00:00 [facility] IPV 1997-04-25 Completed [facility] 00:00:00 [facility] MMR 1997-04-25 Completed [facility] 00:00:00 [facility] DTAP 1997-04-25 Completed [facility] 00:00:00 [facility] IPV 1997-04-25 Completed [facility] 00:00:00 [facility] MMR 1997-04-25 Completed [facility] 00:00:00 [facility] DTAP 1997-04-25 Completed [facility] 00:00:00 [facility] IPV 1997-04-25 Completed [facility] 00:00:00 [facility] MMR 1997-04-25 Completed [facility] 00:00:00 [facility] DTAP 1997-04-25 Completed [facility] 00:00:00 [facility] IPV 1997-04-25 Completed [facility] 00:00:00 [facility] MMR 1997-04-25 Completed [facility] 00:00:00 [facility] DTAP 1997-04-25 Completed [facility] 00:00:00 [facility] IPV 1997-04-25 Completed [facility] 00:00:00 [facility] MMR 1997-04-25 Completed [facility] 00:00:00 [facility] DTAP 1997-04-25 Completed [facility] 00:00:00 [facility] IPV 1997-04-25 Completed [facility] 00:00:00 [facility] MMR 1997-04-25 Completed [facility] 00:00:00 [facility] DTAP 1997-04-25 Completed [facility] 00:00:00 [facility] IPV 1997-04-25 Completed [facility] 00:00:00 [facility] MMR 1997-04-25 Completed [facility] 00:00:00 [facility] DTAP 1997-04-25 Completed [facility] 00:00:00 [facility] IPV 1997-04-25 Completed [facility] 00:00:00 [facility] MMR 1997-04-25 Completed [facility] 00:00:00 [facility] DTAP 1997-04-25 Completed [facility] 00:00:00 [facility] IPV 1997-04-25 Completed [facility] 00:00:00 [facility] MMR 1997-04-25 Completed [facility] 00:00:00 [facility] DTAP 1997-04-25 Completed [facility] 00:00:00 [facility] IPV 1997-04-25 Completed [facility] 00:00:00 [facility] MMR 1997-04-25 Completed [facility] 00:00:00 [facility] DTAP 1997-04-25 Completed [facility] 00:00:00 [facility] IPV 1997-04-25 Completed [facility] 00:00:00 [facility] MMR 1997-04-25 Completed [facility] 00:00:00 [facility] DTAP 1997-04-25 Completed [facility] 00:00:00 [facility] IPV 1997-04-25 Completed [facility] 00:00:00 [facility] MMR 1997-04-25 Completed [facility] 00:00:00 [facility] DTAP 1997-04-25 Completed [facility] 00:00:00 [facility] IPV 1997-04-25 Completed [facility] 00:00:00 [facility] MMR 1997-04-25 Completed [facility] 00:00:00 [facility] DTAP 1997-04-25 Completed [facility] 00:00:00 [facility] IPV 1997-04-25 Completed [facility] 00:00:00 [facility] MMR 1997-04-25 Completed [facility] 00:00:00 [facility] DTAP 1997-04-25 Completed [facility] 00:00:00 [facility] IPV 1997-04-25 Completed [facility] 00:00:00 [facility] MMR 1997-04-25 Completed [facility] 00:00:00 [facility] DTAP 1997-04-25 Completed [facility] 00:00:00 [facility] IPV 1997-04-25 Completed [facility] 00:00:00 [facility] MMR 1997-04-25 Completed [facility] 00:00:00 [facility] DTAP 1997-04-25 Completed [facility] 00:00:00 [facility] IPV 1997-04-25 Completed [facility] 00:00:00 [facility] MMR 1997-04-25 Completed [facility] 00:00:00 [facility] DTAP 1997-04-25 Completed [facility] 00:00:00 [facility] IPV 1997-04-25 Completed [facility] 00:00:00 [facility] MMR 1997-04-25 Completed [facility] 00:00:00 [facility] DTAP 1997-04-25 Completed [facility] 00:00:00 [facility] IPV 1997-04-25 Completed [facility] 00:00:00 [facility] MMR 1997-04-25 Completed [facility] 00:00:00 [facility] DTAP 1997-04-25 Completed [facility] 00:00:00 [facility] IPV 1997-04-25 Completed [facility] 00:00:00 [facility] MMR 1997-04-25 Completed [facility] 00:00:00 [facility] DTAP 1997-04-25 Completed [facility] 00:00:00 [facility] IPV 1997-04-25 Completed [facility] 00:00:00 [facility] MMR 1997-04-25 Completed [facility] 00:00:00 [facility] DTAP 1997-04-25 Completed [facility] 00:00:00 [facility] IPV 1997-04-25 Completed [facility] 00:00:00 [facility] MMR 1997-04-25 Completed [facility] 00:00:00 [facility] DTAP 1997-04-25 Completed [facility] 00:00:00 [facility] IPV 1997-04-25 Completed [facility] 00:00:00 [facility] MMR 1997-04-25 Completed [facility] 00:00:00 [facility] DTAP 1997-04-25 Completed [facility] 00:00:00 [facility] IPV 1997-04-25 Completed [facility] 00:00:00 [facility] MMR 1997-04-25 Completed [facility] 00:00:00 [facility] DTAP 1997-04-25 Completed [facility] 00:00:00 [facility] IPV 1997-04-25 Completed [facility] 00:00:00 [facility] MMR 1997-04-25 Completed [facility] 00:00:00 [facility] DTAP 1997-04-25 Completed [facility] 00:00:00 [facility] IPV 1997-04-25 Completed [facility] 00:00:00 [facility] MMR 1997-04-25 Completed [facility] 00:00:00 [facility] DTAP 1997-04-25 Completed [facility] 00:00:00 [facility] IPV 1997-04-25 Completed [facility] 00:00:00 [facility] MMR 1997-04-25 Completed [facility] 00:00:00 [facility] DTAP 1997-04-25 Completed [facility] 00:00:00 [facility] IPV 1997-04-25 Completed [facility] 00:00:00 [facility] MMR 1997-04-25 Completed [facility] 00:00:00 [facility] DTAP 1997-04-25 Completed [facility] 00:00:00 [facility] IPV 1997-04-25 Completed [facility] 00:00:00 [facility] MMR 1997-04-25 Completed [facility] 00:00:00 [facility] DTAP 1997-04-25 Completed [facility] 00:00:00 [facility] IPV 1997-04-25 Completed [facility] 00:00:00 [facility] MMR 1997-04-25 Completed [facility] 00:00:00 [facility] DTAP 1997-04-25 Completed [facility] 00:00:00 [facility] IPV 1997-04-25 Completed [facility] 00:00:00 [facility] MMR 1997-04-25 Completed [facility] 00:00:00 [facility] DTAP 1997-04-25 Completed [facility] 00:00:00 [facility] IPV 1997-04-25 Completed [facility] 00:00:00 [facility] MMR 1997-04-25 Completed [facility] 00:00:00 [facility] DTAP 1997-04-25 Completed [facility] 00:00:00 [facility] IPV 1997-04-25 Completed [facility] 00:00:00 [facility] MMR 1997-04-25 Completed [facility] 00:00:00 [facility] DTAP 1997-04-25 Completed [facility] 00:00:00 [facility] IPV 1997-04-25 Completed [facility] 00:00:00 [facility] MMR 1997-04-25 Completed [facility] 00:00:00 [facility] DTAP 1997-04-25 Completed [facility] 00:00:00 [facility] IPV 1997-04-25 Completed [facility] 00:00:00 [facility] MMR 1997-04-25 Completed [facility] 00:00:00 [facility] DTAP 1997-04-25 Completed [facility] 00:00:00 [facility] IPV 1997-04-25 Completed [facility] 00:00:00 [facility] MMR 1997-04-25 Completed [facility] 00:00:00 [facility] DTAP 1997-04-25 Completed [facility] 00:00:00 [facility] IPV 1997-04-25 Completed [facility] 00:00:00 [facility] MMR 1997-04-25 Completed [facility] 00:00:00 [facility] DTAP 1997-04-25 Completed [facility] 00:00:00 [facility] IPV 1997-04-25 Completed [facility] 00:00:00 [facility] MMR 1997-04-25 Completed [facility] 00:00:00 [facility] DTAP 1997-04-25 Completed [facility] 00:00:00 [facility] IPV 1997-04-25 Completed [facility] 00:00:00 [facility] MMR 1997-04-25 Completed [facility] 00:00:00 [facility] DTAP 1997-04-25 Completed [facility] 00:00:00 [facility] IPV 1997-04-25 Completed [facility] 00:00:00 [facility] MMR 1997-04-25 Completed [facility] 00:00:00 [facility] DTAP 1997-04-25 Completed [facility] 00:00:00 [facility] IPV 1997-04-25 Completed [facility] 00:00:00 [facility] MMR 1997-04-25 Completed [facility] 00:00:00 [facility] DTAP 1997-04-25 Completed [facility] 00:00:00 [facility] IPV 1997-04-25 Completed [facility] 00:00:00 [facility] MMR 1997-04-25 Completed [facility] 00:00:00 [facility] DTAP 1997-04-25 Completed [facility] 00:00:00 [facility] IPV 1997-04-25 Completed [facility] 00:00:00 [facility] MMR 1997-04-25 Completed [facility] 00:00:00 [facility] DTAP 1997-04-25 Completed [facility] 00:00:00 [facility] IPV 1997-04-25 Completed [facility] 00:00:00 [facility] MMR 1997-04-25 Completed [facility] 00:00:00 [facility] DTAP 1997-04-25 Completed [facility] 00:00:00 [facility] IPV 1997-04-25 Completed [facility] 00:00:00 [facility] MMR 1997-04-25 Completed [facility] 00:00:00 [facility] DTAP 1997-04-25 Completed [facility] 00:00:00 [facility] IPV 1997-04-25 Completed [facility] 00:00:00 [facility] MMR 1997-04-25 Completed [facility] 00:00:00 [facility] DTAP 1997-04-25 Completed [facility] 00:00:00 [facility] IPV 1997-04-25 Completed [facility] 00:00:00 [facility] MMR 1997-04-25 Completed [facility] 00:00:00 [facility] DTAP 1997-04-25 Completed [facility] 00:00:00 [facility] IPV 1997-04-25 Completed [facility] 00:00:00 [facility] MMR 1997-04-25 Completed [facility] 00:00:00 [facility] DTAP 1997-04-25 Completed [facility] 00:00:00 [facility] IPV 1997-04-25 Completed [facility] 00:00:00 [facility] MMR 1997-04-25 Completed [facility] 00:00:00 [facility] DTAP 1997-04-25 Completed [facility] 00:00:00 [facility] IPV 1997-04-25 Completed [facility] 00:00:00 [facility] MMR 1997-04-25 Completed [facility] 00:00:00 [facility] DTAP 1997-04-25 Completed [facility] 00:00:00 [facility] IPV 1997-04-25 Completed [facility] 00:00:00 [facility] MMR 1997-04-25 Completed [facility] 00:00:00 [facility] DTAP 1997-04-25 Completed [facility] 00:00:00 [facility] IPV 1997-04-25 Completed [facility] 00:00:00 [facility] MMR 1997-04-25 Completed [facility] 00:00:00 [facility] DTAP 1997-04-25 Completed [facility] 00:00:00 [facility] IPV 1997-04-25 Completed [facility] 00:00:00 [facility] MMR 1997-04-25 Completed [facility] 00:00:00 [facility] DTAP 1997-04-25 Completed [facility] 00:00:00 [facility] IPV 1997-04-25 Completed [facility] 00:00:00 [facility] MMR 1997-04-25 Completed [facility] 00:00:00 [facility] DTAP 1997-04-25 Completed [facility] 00:00:00 [facility] IPV 1997-04-25 Completed [facility] 00:00:00 [facility] MMR 1997-04-25 Completed [facility] 00:00:00 [facility] DTAP 1997-04-25 Completed [facility] 00:00:00 [facility] IPV 1997-04-25 Completed [facility] 00:00:00 [facility] MMR 1997-04-25 Completed [facility] 00:00:00 [facility] DTAP 1997-04-25 Completed [facility] 00:00:00 [facility] IPV 1997-04-25 Completed [facility] 00:00:00 [facility] MMR 1997-04-25 Completed [facility] 00:00:00 [facility] DTAP 1997-04-25 Completed [facility] 00:00:00 [facility] IPV 1997-04-25 Completed [facility] 00:00:00 [facility] MMR 1997-04-25 Completed [facility] 00:00:00 [facility] DTAP 1997-04-25 Completed [facility] 00:00:00 [facility] IPV 1997-04-25 Completed [facility] 00:00:00 [facility] MMR 1997-04-25 Completed [facility] 00:00:00 [facility] DTAP 1997-04-25 Completed [facility] 00:00:00 [facility] IPV 1997-04-25 Completed [facility] 00:00:00 [facility] MMR 1997-04-25 Completed [facility] 00:00:00 [facility] DTAP 1997-04-25 Completed [facility] 00:00:00 [facility] IPV 1997-04-25 Completed [facility] 00:00:00 [facility] MMR 1997-04-25 Completed [facility] 00:00:00 [facility] DTAP 1997-04-25 Completed [facility] 00:00:00 [facility] IPV 1997-04-25 Completed [facility] 00:00:00 [facility] MMR 1997-04-25 Completed [facility] 00:00:00 [facility] Chickenpox Disease 1995 Completed [facility] 00:00:00 [facility] Chickenpox Disease 1995 Completed [facility] 00:00:00 [facility] Chickenpox Disease 1995 Completed [facility] 00:00:00 [facility] Chickenpox Disease 1995 Completed [facility] 00:00:00 [facility] Chickenpox Disease 1995 Completed [facility] 00:00:00 [facility] Chickenpox Disease 1995 Completed [facility] 00:00:00 [facility] Chickenpox Disease 1995 Completed [facility] 00:00:00 [facility] Chickenpox Disease 1995 Completed [facility] 00:00:00 [facility] Chickenpox Disease 1995 Completed [facility] 00:00:00 [facility] Chickenpox Disease 1995 Completed [facility] 00:00:00 [facility] Chickenpox Disease 1995 Completed [facility] 00:00:00 [facility] Chickenpox Disease 1995 Completed [facility] 00:00:00 [facility] Chickenpox Disease 1995 Completed [facility] 00:00:00 [facility] Chickenpox Disease 1995 Completed [facility] 00:00:00 [facility] Chickenpox Disease 1995 Completed [facility] 00:00:00 [facility] Chickenpox Disease 1995 Completed [facility] 00:00:00 [facility] Chickenpox Disease 1995 Completed [facility] 00:00:00 [facility] Chickenpox Disease 1995 Completed [facility] 00:00:00 [facility] Chickenpox Disease 1995 Completed [facility] 00:00:00 [facility] Chickenpox Disease 1995 Completed [facility] 00:00:00 [facility] Chickenpox Disease 1995 Completed [facility] 00:00:00 [facility] Chickenpox Disease 1995 Completed [facility] 00:00:00 [facility] Chickenpox Disease 1995 Completed [facility] 00:00:00 [facility] Chickenpox Disease 1995 Completed [facility] 00:00:00 [facility] Chickenpox Disease 1995 Completed [facility] 00:00:00 [facility] Chickenpox Disease 1995 Completed [facility] 00:00:00 [facility] Chickenpox Disease 1995 Completed [facility] 00:00:00 [facility] Chickenpox Disease 1995 Completed [facility] 00:00:00 [facility] Chickenpox Disease 1995 Completed [facility] 00:00:00 [facility] Chickenpox Disease 1995 Completed [facility] 00:00:00 [facility] Chickenpox Disease 1995 Completed [facility] 00:00:00 [facility] Chickenpox Disease 1995 Completed [facility] 00:00:00 [facility] Chickenpox Disease 1995 Completed [facility] 00:00:00 [facility] Chickenpox Disease 1995 Completed [facility] 00:00:00 [facility] Chickenpox Disease 1995 Completed [facility] 00:00:00 [facility] Chickenpox Disease 1995 Completed [facility] 00:00:00 [facility] Chickenpox Disease 1995 Completed [facility] 00:00:00 [facility] Chickenpox Disease 1995 Completed [facility] 00:00:00 [facility] Chickenpox Disease 1995 Completed [facility] 00:00:00 [facility] Chickenpox Disease 1995 Completed [facility] 00:00:00 [facility] Chickenpox Disease 1995 Completed [facility] 00:00:00 [facility] Chickenpox Disease 1995 Completed [facility] 00:00:00 [facility] Chickenpox Disease 1995 Completed [facility] 00:00:00 [facility] Chickenpox Disease 1995 Completed [facility] 00:00:00 [facility] Chickenpox Disease 1995 Completed [facility] 00:00:00 [facility] Chickenpox Disease 1995 Completed [facility] 00:00:00 [facility] Chickenpox Disease 1995 Completed [facility] 00:00:00 [facility] Chickenpox Disease 1995 Completed [facility] 00:00:00 [facility] Chickenpox Disease 1995 Completed [facility] 00:00:00 [facility] Chickenpox Disease 1995 Completed [facility] 00:00:00 [facility] Chickenpox Disease 1995 Completed [facility] 00:00:00 [facility] Chickenpox Disease 1995 Completed [facility] 00:00:00 [facility] Chickenpox Disease 1995 Completed [facility] 00:00:00 [facility] Chickenpox Disease 1995 Completed [facility] 00:00:00 [facility] Chickenpox Disease 1995 Completed [facility] 00:00:00 [facility] Chickenpox Disease 1995 Completed [facility] 00:00:00 [facility] Chickenpox Disease 1995 Completed [facility] 00:00:00 [facility] Chickenpox Disease 1995 Completed [facility] 00:00:00 [facility] Chickenpox Disease 1995 Completed [facility] 00:00:00 [facility] Chickenpox Disease 1995 Completed [facility] 00:00:00 [facility] Chickenpox Disease 1995 Completed [facility] 00:00:00 [facility] Chickenpox Disease 1995 Completed [facility] 00:00:00 [facility] Chickenpox Disease 1995 Completed [facility] 00:00:00 [facility] Chickenpox Disease 1995 Completed [facility] 00:00:00 [facility] Chickenpox Disease 1995 Completed [facility] 00:00:00 [facility] Chickenpox Disease 1995 Completed [facility] 00:00:00 [facility] Chickenpox Disease 1995 Completed [facility] 00:00:00 [facility] Chickenpox Disease 1995 Completed [facility] 00:00:00 [facility] Chickenpox Disease 1995 Completed [facility] 00:00:00 [facility] Chickenpox Disease 1995 Completed [facility] 00:00:00 [facility] Chickenpox Disease 1995 Completed [facility] 00:00:00 [facility] Chickenpox Disease 1995 Completed [facility] 00:00:00 [facility] Chickenpox Disease 1995 Completed [facility] 00:00:00 [facility] Heamophilus 1994-03-31 Completed [facility] Influenza B 00:00:00 [facility] MMR 1994-03-31 Completed [facility] 00:00:00 [facility] Heamophilus 1994-03-31 Completed [facility] Influenza B 00:00:00 [facility] MMR 1994-03-31 Completed [facility] 00:00:00 [facility] Heamophilus 1994-03-31 Completed [facility] Influenza B 00:00:00 [facility] MMR 1994-03-31 Completed [facility] 00:00:00 [facility] Heamophilus 1994-03-31 Completed [facility] Influenza B 00:00:00 [facility] MMR 1994-03-31 Completed [facility] 00:00:00 [facility] Heamophilus 1994-03-31 Completed [facility] Influenza B 00:00:00 [facility] MMR 1994-03-31 Completed [facility] 00:00:00 [facility] Heamophilus 1994-03-31 Completed [facility] Influenza B 00:00:00 [facility] MMR 1994-03-31 Completed [facility] 00:00:00 [facility] Heamophilus 1994-03-31 Completed [facility] Influenza B 00:00:00 [facility] MMR 1994-03-31 Completed [facility] 00:00:00 [facility] Heamophilus 1994-03-31 Completed [facility] Influenza B 00:00:00 [facility] MMR 1994-03-31 Completed [facility] 00:00:00 [facility] Heamophilus 1994-03-31 Completed [facility] Influenza B 00:00:00 [facility] MMR 1994-03-31 Completed [facility] 00:00:00 [facility] Heamophilus 1994-03-31 Completed [facility] Influenza B 00:00:00 [facility] MMR 1994-03-31 Completed [facility] 00:00:00 [facility] Heamophilus 1994-03-31 Completed [facility] Influenza B 00:00:00 [facility] MMR 1994-03-31 Completed [facility] 00:00:00 [facility] Heamophilus 1994-03-31 Completed [facility] Influenza B 00:00:00 [facility] MMR 1994-03-31 Completed [facility] 00:00:00 [facility] Heamophilus 1994-03-31 Completed [facility] Influenza B 00:00:00 [facility] MMR 1994-03-31 Completed [facility] 00:00:00 [facility] Heamophilus 1994-03-31 Completed [facility] Influenza B 00:00:00 [facility] MMR 1994-03-31 Completed [facility] 00:00:00 [facility] Heamophilus 1994-03-31 Completed [facility] Influenza B 00:00:00 [facility] MMR 1994-03-31 Completed [facility] 00:00:00 [facility] Heamophilus 1994-03-31 Completed [facility] Influenza B 00:00:00 [facility] MMR 1994-03-31 Completed [facility] 00:00:00 [facility] Heamophilus 1994-03-31 Completed [facility] Influenza B 00:00:00 [facility] MMR 1994-03-31 Completed [facility] 00:00:00 [facility] Heamophilus 1994-03-31 Completed [facility] Influenza B 00:00:00 [facility] MMR 1994-03-31 Completed [facility] 00:00:00 [facility] Heamophilus 1994-03-31 Completed [facility] Influenza B 00:00:00 [facility] MMR 1994-03-31 Completed [facility] 00:00:00 [facility] Heamophilus 1994-03-31 Completed [facility] Influenza B 00:00:00 [facility] MMR 1994-03-31 Completed [facility] 00:00:00 [facility] Heamophilus 1994-03-31 Completed [facility] Influenza B 00:00:00 [facility] MMR 1994-03-31 Completed [facility] 00:00:00 [facility] Heamophilus 1994-03-31 Completed [facility] Influenza B 00:00:00 [facility] MMR 1994-03-31 Completed [facility] 00:00:00 [facility] Heamophilus 1994-03-31 Completed [facility] Influenza B 00:00:00 [facility] MMR 1994-03-31 Completed [facility] 00:00:00 [facility] Heamophilus 1994-03-31 Completed [facility] Influenza B 00:00:00 [facility] MMR 1994-03-31 Completed [facility] 00:00:00 [facility] Heamophilus 1994-03-31 Completed [facility] Influenza B 00:00:00 [facility] MMR 1994-03-31 Completed [facility] 00:00:00 [facility] Heamophilus 1994-03-31 Completed [facility] Influenza B 00:00:00 [facility] MMR 1994-03-31 Completed [facility] 00:00:00 [facility] Heamophilus 1994-03-31 Completed [facility] Influenza B 00:00:00 [facility] MMR 1994-03-31 Completed [facility] 00:00:00 [facility] Heamophilus 1994-03-31 Completed [facility] Influenza B 00:00:00 [facility] MMR 1994-03-31 Completed [facility] 00:00:00 [facility] Heamophilus 1994-03-31 Completed [facility] Influenza B 00:00:00 [facility] MMR 1994-03-31 Completed [facility] 00:00:00 [facility] Heamophilus 1994-03-31 Completed [facility] Influenza B 00:00:00 [facility] MMR 1994-03-31 Completed [facility] 00:00:00 [facility] Heamophilus 1994-03-31 Completed [facility] Influenza B 00:00:00 [facility] MMR 1994-03-31 Completed [facility] 00:00:00 [facility] Heamophilus 1994-03-31 Completed [facility] Influenza B 00:00:00 [facility] MMR 1994-03-31 Completed [facility] 00:00:00 [facility] Heamophilus 1994-03-31 Completed [facility] Influenza B 00:00:00 [facility] MMR 1994-03-31 Completed [facility] 00:00:00 [facility] Heamophilus 1994-03-31 Completed [facility] Influenza B 00:00:00 [facility] MMR 1994-03-31 Completed [facility] 00:00:00 [facility] Heamophilus 1994-03-31 Completed [facility] Influenza B 00:00:00 [facility] MMR 1994-03-31 Completed [facility] 00:00:00 [facility] Heamophilus 1994-03-31 Completed [facility] Influenza B 00:00:00 [facility] MMR 1994-03-31 Completed [facility] 00:00:00 [facility] Heamophilus 1994-03-31 Completed [facility] Influenza B 00:[facility]00 [facility] [facility] MMR 1994-03-31 Completed [facility] 00[facility]00:00 [facility] 1994-03-31 Completed [facility] 00:00:00 [facility] MMR 1994-03-31 Completed [facility] 00:00:00 [facility] 1994-03-31 Completed [facility] 00:00:00 [facility] MMR 1994-03-31 Completed [facility] 00[facility]00:00 [facility] 1994-03-31 Completed [facility] 00:00:00 [facility] MMR 1994-03-31 Completed [facility] 00:00:00 [facility] 1994-03-31 Completed [facility] 00:00:00 [facility] MMR 1994-03-31 Completed [facility] 00:00:00 [facility] 1994-03-31 Completed [facility] 00:00:00 [facility] MMR 1994-03-31 Completed [facility] 00:00:00 [facility] 1994-03-31 Completed [facility] 00:00:00 [facility] MMR 1994-03-31 Completed [facility] 00:00:00 [facility] 1994-03-31 Completed [facility] 00:00:00 [facility] MMR 1994-03-31 Completed [facility] 00:00:00 [facility] 1994-03-31 Completed [facility] 00:00:00 [facility] MMR 1994-03-31 Completed [facility] 00:00:00 [facility] 1994-03-31 Completed [facility] Influ[facility] B 00:00:00 [facility] MMR 1994-03-31 Completed [facility] 00:00:00 [facility] 1994-03-31 Completed [facility] Influ[facility] B 00:00:00 [facility] MMR 1994-03-31 Completed [facility] 00:00:00 [facility] 1994-03-31 Completed [facility] Influ[facility] B 00:00:00 [facility] MMR 1994-03-31 Completed [facility] 00:00:00 [facility] 1994-03-31 Completed [facility] 00:00:00 [facility] MMR 1994-03-31 Completed [facility] 00:00:00 [facility] 1994-03-31 Completed [facility] 00:00:00 [facility] MMR 1994-03-31 Completed [facility] 00:00:00 [facility] 1994-03-31 Completed [facility] Influ[facility] B 00:00:00 [facility] MMR 1994-03-31 Completed [facility] 00:00:00 [facility] 1994-03-31 Completed [facility] Influ[facility] B 00:00:00 [facility] MMR 1994-03-31 Completed [facility] 00:00:00 [facility] 1994-03-31 Completed [facility] 00:00:00 [facility] MMR 1994-03-31 Completed [facility] 00:00:00 [facility] 1994-03-31 Completed [facility] Influ[facility] B 00:00:00 [facility] MMR 1994-03-31 Completed [facility] 00:00:00 [facility] 1994-03-31 Completed [facility] 00:00:00 [facility] MMR 1994-03-31 Completed [facility] 00:00:00 [facility] 1994-03-31 Completed [facility] 00:00:00 [facility] MMR 1994-03-31 Completed [facility] 00:00:00 [facility] 1994-03-31 Completed [facility] 00:00:00 [facility] MMR 1994-03-31 Completed [facility] 00:00:00 [facility] 1994-03-31 Completed [facility] Influ[facility] 00:00:00 [facility] MMR 1994-03-31 Completed [facility] 00:00:00 [facility] 1994-03-31 Completed [facility] 00:00:00 [facility] MMR 1994-03-31 Completed [facility] 00:00:00 [facility] 1994-03-31 Completed [facility] Influ[facility] B 00:00:00 [facility] MMR 1994-03-31 Completed [facility] 00:00:00 [facility] 1994-03-31 Completed [facility] 00:00:00 [facility] MMR 1994-03-31 Completed [facility] 00:00:00 [facility] 1994-03-31 Completed [facility] Influ[facility] B 00:00:00 [facility] MMR 1994-03-31 Completed [facility] 00:00:00 [facility] 1994-03-31 Completed [facility] Influ[facility] B 00:00:00 [facility] MMR 1994-03-31 Completed [facility] 00:00:00 [facility] 1994-03-31 Completed [facility] 00:00:00 [facility] MMR 1994-03-31 Completed [facility] 00:00:00 [facility] 1994-03-31 Completed [facility] Influ[facility] B 00:00:00 [facility] MMR 1994-03-31 Completed [facility] 00:00:00 [facility] Heamophil[facility] 1994-03-31 Completed [facility] Influ[facility] B 00:00:00 [facility] MMR 1994-03-31 Completed [facility] 00:00:00 [facility] 1994-03-31 Completed [facility] Influ[facility] B 00:00:00 [facility] MMR 1994-03-31 Completed [facility] 00:00:00 [facility]am[facility] 1994-03-31 Completed [facility] Influ[facility] B 00:00:00 [facility] MMR 1994-03-31 Completed [facility] 00:00:00 [facility]amophil[facility] 1994-03-31 Completed [facility] Influenza B 00:00:00 [facility] MMR 1994-03-31 Completed [facility] 00[facility]00:00 [facility] 1994-03-31 Completed [facility] Influenza B 00:00:00 [facility] MMR 1994-03-31 Completed [facility] 00:00:00 [facility] 1994-03-31 Completed [facility] Influ[facility] B 00:00:00 [facility] MMR 1994-03-31 Completed [facility] 00:00:00 [facility] 1994-03-31 Completed [facility] Influ[facility] B 00:00:00 [facility] MMR 1994-03-31 Completed [facility] 00:00:00 [facility] 1994-03-31 Completed [facility] Influ[facility] 00:00:00 [facility] MMR 1994-03-31 Completed [facility] 00:00:00 [facility] DTP 1994-02-17 Completed [facility] 00:00:00 [facility] 1994-02-17 Completed [facility] 00:00:00 [facility] OPV 1994-02-17 Completed [facility] 00:00:00 [facility] Polio (IPV/OPV) 1994-02-17 Completed [facility] 00:00:00 [facility] DTP 1994-02-17 Completed [facility] 00:00:00 [facility] 1994-02-17 Completed [facility] Influ[facility] 00:00:00 [facility] OPV 1994-02-17 Completed [facility] 00:00:00 [facility] Polio (IPV/OPV) 1994-02-17 Completed [facility] 00:00:00 [facility] DTP 1994-02-17 Completed [facility] 00:00:00 [facility] 1994-02-17 Completed [facility] Influenza B 00:00:00 [facility] OPV 1994-02-17 Completed [facility] 00:00:00 [facility] Polio (IPV/OPV) 1994-02-17 Completed [facility] 00:00:00 [facility] DTP 1994-02-17 Completed [facility] 00:00:00 [facility] 1994-02-17 Completed [facility] Influ[facility] 00:00:00 [facility] OPV 1994-02-17 Completed [facility] 00:00:00 [facility] Polio (IPV/OPV) 1994-02-17 Completed [facility] 00:00:00 [facility] DTP 1994-02-17 Completed [facility] 00:00:00 [facility] 1994-02-17 Completed [facility] Influ[facility] B 00:00:00 [facility] OPV 1994-02-17 Completed [facility] 00:00:00 [facility] Polio (IPV/OPV) 1994-02-17 Completed [facility] 00:00:00 [facility] DTP 1994-02-17 Completed [facility] 00:00:00 [facility] 1994-02-17 Completed [facility] Influ[facility] 00:00:00 [facility] OPV 1994-02-17 Completed [facility] 00:00:00 [facility] Polio (IPV/OPV) 1994-02-17 Completed [facility] 00:00:00 [facility] DTP 1994-02-17 Completed [facility] 00:00:00 [facility] 1994-02-17 Completed [facility] Influ[facility] 00:00:00 [facility] OPV 1994-02-17 Completed [facility] 00:00:00 [facility] Polio (IPV/OPV) 1994-02-17 Completed [facility] 00:00:00 [facility] DTP 1994-02-17 Completed [facility] 00:00:00 [facility] 1994-02-17 Completed [facility] Influ[facility] 00:00:00 [facility] OPV 1994-02-17 Completed [facility] 00:00:00 [facility] Polio (IPV/OPV) 1994-02-17 Completed [facility] 00:00:00 [facility] DTP 1994-02-17 Completed [facility] 00:00:00 [facility] 1994-02-17 Completed [facility] Influ[facility] B 00:00:00 [facility] OPV 1994-02-17 Completed [facility] 00:00:00 [facility] Polio (IPV/OPV) 1994-02-17 Completed [facility] 00:00:00 [facility] DTP 1994-02-17 Completed [facility] 00:00:00 [facility] 1994-02-17 Completed [facility] Influ[facility] B 00:00:00 [facility] OPV 1994-02-17 Completed [facility] 00:00:00 [facility] Polio (IPV/OPV) 1994-02-17 Completed [facility] 00:00:00 [facility] DTP 1994-02-17 Completed [facility] 00:00:00 [facility] 1994-02-17 Completed [facility] Influ[facility] 00:00:00 [facility] OPV 1994-02-17 Completed [facility] 00:00:00 [facility] Polio (IPV/OPV) 1994-02-17 Completed [facility] 00:00:00 [facility] DTP 1994-02-17 Completed [facility] 00:00:00 [facility] 1994-02-17 Completed [facility] Influ[facility] B 00:00:00 [facility] OPV 1994-02-17 Completed [facility] 00:00:00 [facility] Polio (IPV/OPV) 1994-02-17 Completed [facility] 00:00:00 [facility] DTP 1994-02-17 Completed [facility] 00:00:00 [facility] 1994-02-17 Completed [facility] Influenza B 00:00:00 [facility] OPV 1994-02-17 Completed [facility] 00:00:00 [facility] Polio (IPV/OPV) 1994-02-17 Completed [facility] 00:00:00 [facility] DTP 1994-02-17 Completed [facility] 00:00:00 [facility] 1994-02-17 Completed [facility] Influenza B 00:00:00 [facility] OPV 1994-02-17 Completed [facility] 00:00:00 [facility] Polio (IPV/OPV) 1994-02-17 Completed [facility] 00:00:00 [facility] DTP 1994-02-17 Completed [facility] 00:00:00 [facility] 1994-02-17 Completed [facility] Influenza B 00:00:00 [facility] OPV 1994-02-17 Completed [facility] 00:00:00 [facility] Polio (IPV/OPV) 1994-02-17 Completed [facility] 00:00:00 [facility] DTP 1994-02-17 Completed [facility] 00:00:00 [facility] 1994-02-17 Completed [facility] Influenza B 00:00:00 [facility] OPV 1994-02-17 Completed [facility] 00:00:00 [facility] Polio (IPV/OPV) 1994-02-17 Completed [facility] 00:00:00 [facility] DTP 1994-02-17 Completed [facility] 00:00:00 [facility] 1994-02-17 Completed [facility] Influenza B 00:00:00 [facility] OPV 1994-02-17 Completed [facility] 00:00:00 [facility] Polio (IPV/OPV) 1994-02-17 Completed [facility] 00:00:00 [facility] DTP 1994-02-17 Completed [facility] 00:00:00 [facility] 1994-02-17 Completed [facility] Influenza B 00:00:00 [facility] OPV 1994-02-17 Completed [facility] 00:00:00 [facility] Polio (IPV/OPV) 1994-02-17 Completed [facility] 00:00:00 [facility] DTP 1994-02-17 Completed [facility] 00:00:00 [facility] 1994-02-17 Completed [facility] Influenza B 00:00:00 [facility] OPV 1994-02-17 Completed [facility] 00:00:00 [facility] Polio (IPV/OPV) 1994-02-17 Completed [facility] 00:00:00 [facility] DTP 1994-02-17 Completed [facility] 00:00:00 [facility] 1994-02-17 Completed [facility] Influ[facility] B 00:00:00 [facility] OPV 1994-02-17 Completed [facility] 00:00:00 [facility] Polio (IPV/OPV) 1994-02-17 Completed [facility] 00:00:00 [facility] DTP 1994-02-17 Completed [facility] 00:00:00 [facility] 1994-02-17 Completed [facility] Influ[facility] B 00:00:00 [facility] OPV 1994-02-17 Completed [facility] 00:00:00 [facility] Polio (IPV/OPV) 1994-02-17 Completed [facility] 00:00:00 [facility] DTP 1994-02-17 Completed [facility] 00:00:00 [facility] 1994-02-17 Completed [facility] Influ[facility] B 00:00:00 [facility] OPV 1994-02-17 Completed [facility] 00:00:00 [facility] Polio (IPV/OPV) 1994-02-17 Completed [facility] 00:00:00 [facility] DTP 1994-02-17 Completed [facility] 00:00:00 [facility] 1994-02-17 Completed [facility] Influenza B 00:00:00 [facility] OPV 1994-02-17 Completed [facility] 00:00:00 [facility] Polio (IPV/OPV) 1994-02-17 Completed [facility] 00:00:00 [facility] DTP 1994-02-17 Completed [facility] 00:00:00 [facility] 1994-02-17 Completed [facility] Influenza B 00:00:00 [facility] OPV 1994-02-17 Completed [facility] 00:00:00 [facility] Polio (IPV/OPV) 1994-02-17 Completed [facility] 00:00:00 [facility] DTP 1994-02-17 Completed [facility] 00:00:00 [facility] 1994-02-17 Completed [facility] Influ[facility] B 00:00:00 [facility] OPV 1994-02-17 Completed [facility] 00:00:00 [facility] Polio (IPV/OPV) 1994-02-17 Completed [facility] 00:00:00 [facility] DTP 1994-02-17 Completed [facility] 00:00:00 [facility] 1994-02-17 Completed [facility] Influ[facility] B 00:00:00 [facility] OPV 1994-02-17 Completed [facility] 00:00:00 [facility] Polio (IPV/OPV) 1994-02-17 Completed [facility] 00:00:00 [facility] DTP 1994-02-17 Completed [facility] 00:00:00 [facility] 1994-02-17 Completed [facility] Influ[facility] B 00:00:00 [facility] OPV 1994-02-17 Completed [facility] 00:00:00 [facility] Polio (IPV/OPV) 1994-02-17 Completed [facility] 00:00:00 [facility] DTP 1994-02-17 Completed [facility] 00:00:00 [facility] 1994-02-17 Completed [facility] Influenza B 00:00:00 [facility] OPV 1994-02-17 Completed [facility] 00:00:00 [facility] Polio (IPV/OPV) 1994-02-17 Completed [facility] 00:00:00 [facility] DTP 1994-02-17 Completed [facility] 00:00:00 [facility] 1994-02-17 Completed [facility] Influenza B 00:00:00 [facility] OPV 1994-02-17 Completed [facility] 00:00:00 [facility] Polio (IPV/OPV) 1994-02-17 Completed [facility] 00:00:00 [facility] DTP 1994-02-17 Completed [facility] 00:00:00 [facility] 1994-02-17 Completed [facility] Influenza B 00:00:00 [facility] OPV 1994-02-17 Completed [facility] 00:00:00 [facility] Polio (IPV/OPV) 1994-02-17 Completed [facility] 00:00:00 [facility] DTP 1994-02-17 Completed [facility] 00:00:00 [facility] 1994-02-17 Completed [facility] Influenza B 00:00:00 [facility] OPV 1994-02-17 Completed [facility] 00:00:00 [facility] Polio (IPV/OPV) 1994-02-17 Completed [facility] 00:00:00 [facility] DTP 1994-02-17 Completed [facility] 00:00:00 [facility] 1994-02-17 Completed [facility] Influenza B 00:00:00 [facility] OPV 1994-02-17 Completed [facility] 00:00:00 [facility] Polio (IPV/OPV) 1994-02-17 Completed [facility] 00:00:00 [facility] DTP 1994-02-17 Completed [facility] 00:00:00 [facility] 1994-02-17 Completed [facility] Influenza B 00:00:00 [facility] OPV 1994-02-17 Completed [facility] 00:00:00 [facility] Polio (IPV/OPV) 1994-02-17 Completed [facility] 00:00:00 [facility] DTP 1994-02-17 Completed [facility] 00:00:00 [facility] 1994-02-17 Completed [facility] Influenza B 00:00:00 [facility] OPV 1994-02-17 Completed [facility] 00:00:00 [facility] Polio (IPV/OPV) 1994-02-17 Completed [facility] 00:00:00 [facility] DTP 1994-02-17 Completed [facility] 00:00:00 [facility] 1994-02-17 Completed [facility] Influenza B 00:00:00 [facility] OPV 1994-02-17 Completed [facility] 00:00:00 [facility] Polio (IPV/OPV) 1994-02-17 Completed [facility] 00:00:00 [facility] DTP 1994-02-17 Completed [facility] 00:00:00 [facility] 1994-02-17 Completed [facility] Influenza B 00:00:00 [facility] OPV 1994-02-17 Completed [facility] 00:00:00 [facility] Polio (IPV/OPV) 1994-02-17 Completed [facility] 00:00:00 [facility] DTP 1994-02-17 Completed [facility] 00:00:00 [facility] 1994-02-17 Completed [facility] Influenza B 00:00:00 [facility] OPV 1994-02-17 Completed [facility] 00:00:00 [facility] Polio (IPV/OPV) 1994-02-17 Completed [facility] 00:00:00 [facility] DTP 1994-02-17 Completed [facility] 00:00:00 [facility] 1994-02-17 Completed [facility] Influ[facility] B 00:00:00 [facility] OPV 1994-02-17 Completed [facility] 00:00:00 [facility] Polio (IPV/OPV) 1994-02-17 Completed [facility] 00:00:00 [facility] DTP 1994-02-17 Completed [facility] 00:00:00 [facility] 1994-02-17 Completed [facility] Influ[facility] B 00:00:00 [facility] OPV 1994-02-17 Completed [facility] 00:00:00 [facility] Polio (IPV/OPV) 1994-02-17 Completed [facility] 00:00:00 [facility] DTP 1994-02-17 Completed [facility] 00:00:00 [facility] 1994-02-17 Completed [facility] Influ[facility] B 00:00:00 [facility] OPV 1994-02-17 Completed [facility] 00:00:00 [facility] Polio (IPV/OPV) 1994-02-17 Completed [facility] 00:00:00 [facility] DTP 1994-02-17 Completed [facility] 00:00:00 [facility] 1994-02-17 Completed [facility] Influenza B 00:00:00 [facility] OPV 1994-02-17 Completed [facility] 00:00:00 [facility] Polio (IPV/OPV) 1994-02-17 Completed [facility] 00:00:00 [facility] DTP 1994-02-17 Completed [facility] 00:00:00 [facility] 1994-02-17 Completed [facility] Influenza B 00:00:00 [facility] OPV 1994-02-17 Completed [facility] 00:00:00 [facility] Polio (IPV/OPV) 1994-02-17 Completed [facility] 00:00:00 [facility] DTP 1994-02-17 Completed [facility] 00:00:00 [facility] 1994-02-17 Completed [facility] Influ[facility] B 00:00:00 [facility] OPV 1994-02-17 Completed [facility] 00:00:00 [facility] Polio (IPV/OPV) 1994-02-17 Completed [facility] 00:00:00 [facility] DTP 1994-02-17 Completed [facility] 00:00:00 [facility] 1994-02-17 Completed [facility] 00:00:00 [facility] OPV 1994-02-17 Completed [facility] 00:00:00 [facility] Polio (IPV/OPV) 1994-02-17 Completed [facility] 00:00:00 [facility] DTP 1994-02-17 Completed [facility] 00:00:00 [facility] 1994-02-17 Completed [facility] Influ[facility] B 00:00:00 [facility] OPV 1994-02-17 Completed [facility] 00:00:00 [facility] Polio (IPV/OPV) 1994-02-17 Completed [facility] 00:00:00 [facility] DTP 1994-02-17 Completed [facility] 00:00:00 [facility] 1994-02-17 Completed [facility] Influ[facility] 00:00:00 [facility] OPV 1994-02-17 Completed [facility] 00:00:00 [facility] Polio (IPV/OPV) 1994-02-17 Completed [facility] 00:00:00 [facility] DTP 1994-02-17 Completed [facility] 00:00:00 [facility] 1994-02-17 Completed [facility] Influ[facility] B 00:00:00 [facility] OPV 1994-02-17 Completed [facility] 00:00:00 [facility] Polio (IPV/OPV) 1994-02-17 Completed [facility] 00:00:00 [facility] DTP 1994-02-17 Completed [facility] 00:00:00 [facility] 1994-02-17 Completed [facility] Influ[facility] B 00:00:00 [facility] OPV 1994-02-17 Completed [facility] 00:00:00 [facility] Polio (IPV/OPV) 1994-02-17 Completed [facility] 00:00:00 [facility] DTP 1994-02-17 Completed [facility] 00:00:00 [facility] 1994-02-17 Completed [facility] Influ[facility] 00:00:00 [facility] OPV 1994-02-17 Completed [facility] 00:00:00 [facility] Polio (IPV/OPV) 1994-02-17 Completed [facility] 00:00:00 [facility] DTP 1994-02-17 Completed [facility] 00:00:00 [facility] 1994-02-17 Completed [facility] Influ[facility] 00:00:00 [facility] OPV 1994-02-17 Completed [facility] 00:00:00 [facility] Polio (IPV/OPV) 1994-02-17 Completed [facility] 00:00:00 [facility] DTP 1994-02-17 Completed [facility] 00:00:00 [facility] 1994-02-17 Completed [facility] Influ[facility] B 00:00:00 [facility] OPV 1994-02-17 Completed [facility] 00:00:00 [facility] Polio (IPV/OPV) 1994-02-17 Completed [facility] 00:00:00 [facility] DTP 1994-02-17 Completed [facility] 00:00:00 [facility] 1994-02-17 Completed [facility] Influ[facility] B 00:00:00 [facility] OPV 1994-02-17 Completed [facility] 00:00:00 [facility] Polio (IPV/OPV) 1994-02-17 Completed [facility] 00:00:00 [facility] DTP 1994-02-17 Completed [facility] 00:00:00 [facility] 1994-02-17 Completed [facility] Influenza B 00:00:00 [facility] OPV 1994-02-17 Completed [facility] 00:00:00 [facility] Polio (IPV/OPV) 1994-02-17 Completed [facility] 00:00:00 [facility] DTP 1994-02-17 Completed [facility] 00:00:00 [facility] Heamophilus 1994-02-17 Completed [facility] Influenza B 00:00:00 [facility] OPV 1994-02-17 Completed [facility] 00:00:00 [facility] Polio (IPV/OPV) 1994-02-17 Completed [facility] 00:00:00 [facility] DTP 1994-02-17 Completed [facility] 00:00:00 [facility] Heamophilus 1994-02-17 Completed [facility] Influenza B 00:00:00 [facility] OPV 1994-02-17 Completed [facility] 00:00:00 [facility] Polio (IPV/OPV) 1994-02-17 Completed [facility] 00:00:00 [facility] DTP 1994-02-17 Completed [facility] 00:00:00 [facility] Heamophilus 1994-02-17 Completed [facility] Influenza B 00:00:00 [facility] OPV 1994-02-17 Completed [facility] 00:00:00 [facility] Polio (IPV/OPV) 1994-02-17 Completed [facility] 00:00:00 [facility] DTP 1994-02-17 Completed [facility] 00:00:00 [facility] Heamophilus 1994-02-17 Completed [facility] Influenza B 00:00:00 [facility] OPV 1994-02-17 Completed [facility] 00:00:00 [facility] Polio (IPV/OPV) 1994-02-17 Completed [facility] 00:00:00 [facility] DTP 1994-02-17 Completed [facility] 00:00:00 [facility] Heamophilus 1994-02-17 Completed [facility] Influenza B 00:00:00 [facility] OPV 1994-02-17 Completed [facility] 00:00:00 [facility] Polio (IPV/OPV) 1994-02-17 Completed [facility] 00:00:00 [facility] DTP 1994-02-17 Completed [facility] 00:00:00 [facility] Heamophilus 1994-02-17 Completed [facility] Influenza B 00:00:00 [facility] OPV 1994-02-17 Completed [facility] 00:00:00 [facility] Polio (IPV/OPV) 1994-02-17 Completed [facility] 00:00:00 [facility] DTP 1994-02-17 Completed [facility] 00:00:00 [facility] Heamophilus 1994-02-17 Completed [facility] Influenza B 00:00:00 [facility] OPV 1994-02-17 Completed [facility] 00:00:00 [facility] Polio (IPV/OPV) 1994-02-17 Completed [facility] 00:00:00 [facility] DTP 1994-02-17 Completed [facility] 00:00:00 [facility] Heamophilus 1994-02-17 Completed [facility] Influenza B 00:00:00 [facility] OPV 1994-02-17 Completed [facility] 00:00:00 [facility] Polio (IPV/OPV) 1994-02-17 Completed [facility] 00:00:00 [facility] DTP 1994-02-17 Completed [facility] 00:00:00 [facility] Heamophilus 1994-02-17 Completed [facility] Influenza B 00:00:00 [facility] OPV 1994-02-17 Completed [facility] 00:00:00 [facility] Polio (IPV/OPV) 1994-02-17 Completed [facility] 00:00:00 [facility] DTP 1994-02-17 Completed [facility] 00:00:00 [facility] Heamophilus 1994-02-17 Completed [facility] Influenza B 00:00:00 [facility] OPV 1994-02-17 Completed [facility] 00:00:00 [facility] Polio (IPV/OPV) 1994-02-17 Completed [facility] 00:00:00 [facility] DTP 1994-02-17 Completed [facility] 00:00:00 [facility] Heamophilus 1994-02-17 Completed [facility] Influenza B 00:00:00 [facility] OPV 1994-02-17 Completed [facility] 00:00:00 [facility] Polio (IPV/OPV) 1994-02-17 Completed [facility] 00:00:00 [facility] DTP 1994-02-17 Completed [facility] 00:00:00 [facility] Heamophilus 1994-02-17 Completed [facility] Influenza B 00:00:00 [facility] OPV 1994-02-17 Completed [facility] 00:00:00 [facility] Polio (IPV/OPV) 1994-02-17 Completed [facility] 00:00:00 [facility] DTP 1994-02-17 Completed [facility] 00:00:00 [facility] Heamophilus 1994-02-17 Completed [facility] Influenza B 00:00:00 [facility] OPV 1994-02-17 Completed [facility] 00:00:00 [facility] Polio (IPV/OPV) 1994-02-17 Completed [facility] 00:00:00 [facility] DTP 1994-02-17 Completed [facility] 00:00:00 [facility] Heamophilus 1994-02-17 Completed [facility] Influenza B 00:00:00 [facility] OPV 1994-02-17 Completed [facility] 00:00:00 [facility] Polio (IPV/OPV) 1994-02-17 Completed [facility] 00:00:00 [facility] DTP 1994-02-17 Completed [facility] 00:00:00 [facility] Heamophilus 1994-02-17 Completed [facility] Influenza B 00:00:00 [facility] OPV 1994-02-17 Completed [facility] 00:00:00 [facility] Polio (IPV/OPV) 1994-02-17 Completed [facility] 00:00:00 [facility] DTP 1994-02-17 Completed [facility] 00:00:00 [facility] Heamophilus 1994-02-17 Completed [facility] Influenza B 00:00:00 [facility] OPV 1994-02-17 Completed [facility] 00:00:00 [facility] Polio (IPV/OPV) 1994-02-17 Completed [facility] 00:00:00 [facility] DTP 1994-02-17 Completed [facility] 00:00:00 [facility] Heamophilus 1994-02-17 Completed [facility] Influenza B 00:00:00 [facility] OPV 1994-02-17 Completed [facility] 00:00:00 [facility] Polio (IPV/OPV) 1994-02-17 Completed [facility] 00:00:00 [facility] DTP 1994-02-17 Completed [facility] 00:00:00 [facility] Heamophilus 1994-02-17 Completed [facility] Influenza B 00:00:00 [facility] OPV 1994-02-17 Completed [facility] 00:00:00 [facility] Polio (IPV/OPV) 1994-02-17 Completed [facility] 00:00:00 [facility] DTP 1994-02-17 Completed [facility] 00:00:00 [facility] Heamophilus 1994-02-17 Completed [facility] Influenza B 00:00:00 [facility] OPV 1994-02-17 Completed [facility] 00:00:00 [facility] Polio (IPV/OPV) 1994-02-17 Completed [facility] 00:00:00 [facility] DTP 1994-02-17 Completed [facility] 00:00:00 [facility] Heamophilus 1994-02-17 Completed [facility] Influenza B 00:00:00 [facility] OPV 1994-02-17 Completed [facility] 00:00:00 [facility] Polio (IPV/OPV) 1994-02-17 Completed [facility] 00:00:00 [facility] DTP 1993 Completed [facility] 00:00:00 [facility] HEP B, Adult Dosage 1993 Completed [facility] 00:00:00 [facility] Heamophilus 1993 Completed [facility] Influenza B 00:00:00 [facility] OPV 1993 Completed [facility] 00:00:00 [facility] Hep B, Adol or Pedi 1993 Completed [facility] Dosage 00:00:00 [facility] Polio (IPV/OPV) 1993 Completed [facility] 00:00:00 [facility] DTP 1993 Completed [facility] 00:00:00 [facility] HEP B, Adult Dosage 1993 Completed [facility] 00:00:00 [facility] Heamophilus 1993 Completed [facility] Influenza B 00:00:00 [facility] OPV 1993 Completed [facility] 00:00:00 [facility] Hep B, Adol or Pedi 1993 Completed [facility] Dosage 00:00:00 [facility] Polio (IPV/OPV) 1993 Completed [facility] 00:00:00 [facility] DTP 1993 Completed [facility] 00:00:00 [facility] HEP B, Adult Dosage 1993 Completed [facility] 00:00:00 [facility] Heamophilus 1993 Completed [facility] Influenza B 00:00:00 [facility] OPV 1993 Completed [facility] 00:00:00 [facility] Hep B, Adol or Pedi 1993 Completed [facility] Dosage 00:00:00 [facility] Polio (IPV/OPV) 1993 Completed [facility] 00:00:00 [facility] DTP 1993 Completed [facility] 00:00:00 [facility] HEP B, Adult Dosage 1993 Completed [facility] 00:00:00 [facility] Heamophilus 1993 Completed [facility] Influenza B 00:00:00 [facility] OPV 1993 Completed [facility] 00:00:00 [facility] Hep B, Adol or Pedi 1993 Completed [facility] Dosage 00:00:00 [facility] Polio (IPV/OPV) 1993 Completed [facility] 00:00:00 [facility] DTP 1993 Completed [facility] 00:00:00 [facility] HEP B, Adult Dosage 1993 Completed [facility] 00:00:00 [facility] Heamophilus 1993 Completed [facility] Influenza B 00:00:00 [facility] OPV 1993 Completed [facility] 00:00:00 [facility] Hep B, Adol or Pedi 1993 Completed [facility] Dosage 00:00:00 [facility] Polio (IPV/OPV) 1993 Completed [facility] 00:00:00 [facility] DTP 1993 Completed [facility] 00:00:00 [facility] HEP B, Adult Dosage 1993 Completed [facility] 00:00:00 [facility] Heamophilus 1993 Completed [facility] Influenza B 00:00:00 [facility] OPV 1993 Completed [facility] 00:00:00 [facility] Hep B, Adol or Pedi 1993 Completed [facility] Dosage 00:00:00 [facility] Polio (IPV/OPV) 1993 Completed [facility] 00:00:00 [facility] DTP 1993 Completed [facility] 00:00:00 [facility] HEP B, Adult Dosage 1993 Completed [facility] 00:00:00 [facility] Heamophilus 1993 Completed [facility] Influenza B 00:00:00 [facility] OPV 1993 Completed [facility] 00:00:00 [facility] Hep B, Adol or Pedi 1993 Completed [facility] Dosage 00:00:00 [facility] Polio (IPV/OPV) 1993 Completed [facility] 00:00:00 [facility] DTP 1993 Completed [facility] 00:00:00 [facility] HEP B, Adult Dosage 1993 Completed [facility] 00:00:00 [facility] Heamophilus 1993 Completed [facility] Influenza B 00:00:00 [facility] OPV 1993 Completed [facility] 00:00:00 [facility] Hep B, Adol or Pedi 1993 Completed [facility] Dosage 00:00:00 [facility] Polio (IPV/OPV) 1993 Completed [facility] 00:00:00 [facility] DTP 1993 Completed [facility] 00:00:00 [facility] HEP B, Adult Dosage 1993 Completed [facility] 00:00:00 [facility] Heamophilus 1993 Completed [facility] Influenza B 00:00:00 [facility] OPV 1993 Completed [facility] 00:00:00 [facility] Hep B, Adol or Pedi 1993 Completed [facility] Dosage 00:00:00 [facility] Polio (IPV/OPV) 1993 Completed [facility] 00:00:00 [facility] DTP 1993 Completed [facility] 00:00:00 [facility] HEP B, Adult Dosage 1993 Completed [facility] 00:00:00 [facility] Heamophilus 1993 Completed [facility] Influenza B 00:00:00 [facility] OPV 1993 Completed [facility] 00:00:00 [facility] Hep B, Adol or Pedi 1993 Completed [facility] Dosage 00:00:00 [facility] Polio (IPV/OPV) 1993 Completed [facility] 00:00:00 [facility] DTP 1993 Completed [facility] 00:00:00 [facility] HEP B, Adult Dosage 1993 Completed [facility] 00:00:00 [facility] Heamophilus 1993 Completed [facility] Influenza B 00:00:00 [facility] OPV 1993 Completed [facility] 00:00:00 [facility] Hep B, Adol or Pedi 1993 Completed [facility] Dosage 00:00:00 [facility] Polio (IPV/OPV) 1993 Completed [facility] 00:00:00 [facility] DTP 1993 Completed [facility] 00:00:00 [facility] HEP B, Adult Dosage 1993 Completed [facility] 00:00:00 [facility] Heamophilus 1993 Completed [facility] Influenza B 00:00:00 [facility] OPV 1993 Completed [facility] 00:00:00 [facility] Hep B, Adol or Pedi 1993 Completed [facility] Dosage 00:00:00 [facility] Polio (IPV/OPV) 1993 Completed [facility] 00:00:00 [facility] DTP 1993 Completed [facility] 00:00:00 [facility] HEP B, Adult Dosage 1993 Completed [facility] 00:00:00 [facility] Heamophilus 1993 Completed [facility] Influenza B 00:00:00 [facility] OPV 1993 Completed [facility] 00:00:00 [facility] Hep B, Adol or Pedi 1993 Completed [facility] Dosage 00:00:00 [facility] Polio (IPV/OPV) 1993 Completed [facility] 00:00:00 [facility] DTP 1993 Completed [facility] 00:00:00 [facility] HEP B, Adult Dosage 1993 Completed [facility] 00:00:00 [facility] Heamophilus 1993 Completed [facility] Influenza B 00:00:00 [facility] OPV 1993 Completed [facility] 00:00:00 [facility] Hep B, Adol or Pedi 1993 Completed [facility] Dosage 00:00:00 [facility] Polio (IPV/OPV) 1993 Completed [facility] 00:00:00 [facility] DTP 1993 Completed [facility] 00:00:00 [facility] HEP B, Adult Dosage 1993 Completed [facility] 00:00:00 [facility] Heamophilus 1993 Completed [facility] Influenza B 00:00:00 [facility] OPV 1993 Completed [facility] 00:00:00 [facility] Hep B, Adol or Pedi 1993 Completed [facility] Dosage 00:00:00 [facility] Polio (IPV/OPV) 1993 Completed [facility] 00:00:00 [facility] DTP 1993 Completed [facility] 00:00:00 [facility] HEP B, Adult Dosage 1993 Completed [facility] 00:00:00 [facility] Heamophilus 1993 Completed [facility] Influenza B 00:00:00 [facility] OPV 1993 Completed [facility] 00:00:00 [facility] Hep B, Adol or Pedi 1993 Completed [facility] Dosage 00:00:00 [facility] Polio (IPV/OPV) 1993 Completed [facility] 00:00:00 [facility] DTP 1993 Completed [facility] 00:00:00 [facility] HEP B, Adult Dosage 1993 Completed [facility] 00:00:00 [facility] Heamophilus 1993 Completed [facility] Influenza B 00:00:00 [facility] OPV 1993 Completed [facility] 00:00:00 [facility] Hep B, Adol or Pedi 1993 Completed [facility] Dosage 00:00:00 [facility] Polio (IPV/OPV) 1993 Completed [facility] 00:00:00 [facility] DTP 1993 Completed [facility] 00:00:00 [facility] HEP B, Adult Dosage 1993 Completed [facility] 00:00:00 [facility] Heamophilus 1993 Completed [facility] Influenza B 00:00:00 [facility] OPV 1993 Completed [facility] 00:00:00 [facility] Hep B, Adol or Pedi 1993 Completed [facility] Dosage 00:00:00 [facility] Polio (IPV/OPV) 1993 Completed [facility] 00:00:00 [facility] DTP 1993 Completed [facility] 00:00:00 [facility] HEP B, Adult Dosage 1993 Completed [facility] 00:00:00 [facility] Heamophilus 1993 Completed [facility] Influenza B 00:00:00 [facility] OPV 1993 Completed [facility] 00:00:00 [facility] Hep B, Adol or Pedi 1993 Completed [facility] Dosage 00:00:00 [facility] Polio (IPV/OPV) 1993 Completed [facility] 00:00:00 [facility] DTP 1993 Completed [facility] 00:00:00 [facility] HEP B, Adult Dosage 1993 Completed [facility] 00:00:00 [facility] Heamophilus 1993 Completed [facility] Influenza B 00:00:00 [facility] OPV 1993 Completed [facility] 00:00:00 [facility] Hep B, Adol or Pedi 1993 Completed [facility] Dosage 00:00:00 [facility] Polio (IPV/OPV) 1993 Completed [facility] 00:00:00 [facility] DTP 1993 Completed [facility] 00:00:00 [facility] HEP B, Adult Dosage 1993 Completed [facility] 00:00:00 [facility] Heamophilus 1993 Completed [facility] Influenza B 00:00:00 [facility] OPV 1993 Completed [facility] 00:00:00 [facility] Hep B, Adol or Pedi 1993 Completed [facility] Dosage 00:00:00 [facility] Polio (IPV/OPV) 1993 Completed [facility] 00:00:00 [facility] DTP 1993 Completed [facility] 00:00:00 [facility] HEP B, Adult Dosage 1993 Completed [facility] 00:00:00 [facility] Heamophilus 1993 Completed [facility] Influenza B 00:00:00 [facility] OPV 1993 Completed [facility] 00:00:00 [facility] Hep B, Adol or Pedi 1993 Completed [facility] Dosage 00:00:00 [facility] Polio (IPV/OPV) 1993 Completed [facility] 00:00:00 [facility] DTP 1993 Completed [facility] 00:00:00 [facility] HEP B, Adult Dosage 1993 Completed [facility] 00:00:00 [facility] Heamophilus 1993 Completed [facility] Influenza B 00:00:00 [facility] OPV 1993 Completed [facility] 00:00:00 [facility] Hep B, Adol or Pedi 1993 Completed [facility] Dosage 00:00:00 [facility] Polio (IPV/OPV) 1993 Completed [facility] 00:00:00 [facility] DTP 1993 Completed [facility] 00:00:00 [facility] HEP B, Adult Dosage 1993 Completed [facility] 00:00:00 [facility] Heamophilus 1993 Completed [facility] Influenza B 00:00:00 [facility] OPV 1993 Completed [facility] 00:00:00 [facility] Hep B, Adol or Pedi 1993 Completed [facility] Dosage 00:00:00 [facility] Polio (IPV/OPV) 1993 Completed [facility] 00:00:00 [facility] DTP 1993 Completed [facility] 00:00:00 [facility] HEP B, Adult Dosage 1993 Completed [facility] 00:00:00 [facility] Heamophilus 1993 Completed [facility] Influenza B 00:00:00 [facility] OPV 1993 Completed [facility] 00:00:00 [facility] Hep B, Adol or Pedi 1993 Completed [facility] Dosage 00:00:00 [facility] Polio (IPV/OPV) 1993 Completed [facility] 00:00:00 [facility] DTP 1993 Completed [facility] 00:00:00 [facility] HEP B, Adult Dosage 1993 Completed [facility] 00:00:00 [facility] Heamophilus 1993 Completed [facility] Influenza B 00:00:00 [facility] OPV 1993 Completed [facility] 00:00:00 [facility] Hep B, Adol or Pedi 1993 Completed [facility] Dosage 00:00:00 [facility] Polio (IPV/OPV) 1993 Completed [facility] 00:00:00 [facility] DTP 1993 Completed [facility] 00:00:00 [facility] HEP B, Adult Dosage 1993 Completed [facility] 00:00:00 [facility] Heamophilus 1993 Completed [facility] Influenza B 00:00:00 [facility] OPV 1993 Completed [facility] 00:00:00 [facility] Hep B, Adol or Pedi 1993 Completed [facility] Dosage 00:00:00 [facility] Polio (IPV/OPV) 1993 Completed [facility] 00:00:00 [facility] DTP 1993 Completed [facility] 00:00:00 [facility] HEP B, Adult Dosage 1993 Completed [facility] 00:00:00 [facility] Heamophilus 1993 Completed [facility] Influenza B 00:00:00 [facility] OPV 1993 Completed [facility] 00:00:00 [facility] Hep B, Adol or Pedi 1993 Completed [facility] Dosage 00:00:00 [facility] Polio (IPV/OPV) 1993 Completed [facility] 00:00:00 [facility] DTP 1993 Completed [facility] 00:00:00 [facility] HEP B, Adult Dosage 1993 Completed [facility] 00:00:00 [facility] Heamophilus 1993 Completed [facility] Influenza B 00:00:00 [facility] OPV 1993 Completed [facility] 00:00:00 [facility] Hep B, Adol or Pedi 1993 Completed [facility] Dosage 00:00:00 [facility] Polio (IPV/OPV) 1993 Completed [facility] 00:00:00 [facility] DTP 1993 Completed [facility] 00:00:00 [facility] HEP B, Adult Dosage 1993 Completed [facility] 00:00:00 [facility] Heamophilus 1993 Completed [facility] Influenza B 00:00:00 [facility] OPV 1993 Completed [facility] 00:00:00 [facility] Hep B, Adol or Pedi 1993 Completed [facility] Dosage 00:00:00 [facility] Polio (IPV/OPV) 1993 Completed [facility] 00:00:00 [facility] DTP 1993 Completed [facility] 00:00:00 [facility] HEP B, Adult Dosage 1993 Completed [facility] 00:00:00 [facility] Heamophilus 1993 Completed [facility] Influenza B 00:00:00 [facility] OPV 1993 Completed [facility] 00:00:00 [facility] Hep B, Adol or Pedi 1993 Completed [facility] Dosage 00:00:00 [facility] Polio (IPV/OPV) 1993 Completed [facility] 00:00:00 [facility] DTP 1993 Completed [facility] 00:00:00 [facility] HEP B, Adult Dosage 1993 Completed [facility] 00:00:00 [facility] Heamophilus 1993 Completed [facility] Influenza B 00:00:00 [facility] OPV 1993 Completed [facility] 00:00:00 [facility] Hep B, Adol or Pedi 1993 Completed [facility] Dosage 00:00:00 [facility] Polio (IPV/OPV) 1993 Completed [facility] 00:00:00 [facility] DTP 1993 Completed [facility] 00:00:00 [facility] HEP B, Adult Dosage 1993 Completed [facility] 00:00:00 [facility] Heamophilus 1993 Completed [facility] Influenza B 00:00:00 [facility] OPV 1993 Completed [facility] 00:00:00 [facility] Hep B, Adol or Pedi 1993 Completed [facility] Dosage 00:00:00 [facility] Polio (IPV/OPV) 1993 Completed [facility] 00:00:00 [facility] DTP 1993 Completed [facility] 00:00:00 [facility] HEP B, Adult Dosage 1993 Completed [facility] 00:00:00 [facility] Heamophilus 1993 Completed [facility] Influenza B 00:00:00 [facility] OPV 1993 Completed [facility] 00:00:00 [facility] Hep B, Adol or Pedi 1993 Completed [facility] Dosage 00:00:00 [facility] Polio (IPV/OPV) 1993 Completed [facility] 00:00:00 [facility] DTP 1993 Completed [facility] 00:00:00 [facility] HEP B, Adult Dosage 1993 Completed [facility] 00:00:00 [facility] Heamophilus 1993 Completed [facility] Influenza B 00:00:00 [facility] OPV 1993 Completed [facility] 00:00:00 [facility] Hep B, Adol or Pedi 1993 Completed [facility] Dosage 00:00:00 [facility] Polio (IPV/OPV) 1993 Completed [facility] 00:00:00 [facility] DTP 1993 Completed [facility] 00:00:00 [facility] HEP B, Adult Dosage 1993 Completed [facility] 00:00:00 [facility] Heamophilus 1993 Completed [facility] Influenza B 00:00:00 [facility] OPV 1993 Completed [facility] 00:00:00 [facility] Hep B, Adol or Pedi 1993 Completed [facility] Dosage 00:00:00 [facility] Polio (IPV/OPV) 1993 Completed [facility] 00:00:00 [facility] DTP 1993 Completed [facility] 00:00:00 [facility] HEP B, Adult Dosage 1993 Completed [facility] 00:00:00 [facility] Heamophilus 1993 Completed [facility] Influenza B 00:00:00 [facility] OPV 1993 Completed [facility] 00:00:00 [facility] Hep B, Adol or Pedi 1993 Completed [facility] Dosage 00:00:00 [facility] Polio (IPV/OPV) 1993 Completed [facility] 00:00:00 [facility] DTP 1993 Completed [facility] 00:00:00 [facility] HEP B, Adult Dosage 1993 Completed [facility] 00:00:00 [facility] Heamophilus 1993 Completed [facility] Influenza B 00:00:00 [facility] OPV 1993 Completed [facility] 00:00:00 [facility] Hep B, Adol or Pedi 1993 Completed [facility] Dosage 00:00:00 [facility] Polio (IPV/OPV) 1993 Completed [facility] 00:00:00 [facility] DTP 1993 Completed [facility] 00:00:00 [facility] HEP B, Adult Dosage 1993 Completed [facility] 00:00:00 [facility] Heamophilus 1993 Completed [facility] Influenza B 00:00:00 [facility] OPV 1993 Completed [facility] 00:00:00 [facility] Hep B, Adol or Pedi 1993 Completed [facility] Dosage 00:00:00 [facility] Polio (IPV/OPV) 1993 Completed [facility] 00:00:00 [facility] DTP 1993 Completed [facility] 00:00:00 [facility] HEP B, Adult Dosage 1993 Completed [facility] 00:00:00 [facility] Heamophilus 1993 Completed [facility] Influenza B 00:00:00 [facility] OPV 1993 Completed [facility] 00:00:00 [facility] Hep B, Adol or Pedi 1993 Completed [facility] Dosage 00:00:00 [facility] Polio (IPV/OPV) 1993 Completed [facility] 00:00:00 [facility] DTP 1993 Completed [facility] 00:00:00 [facility] HEP B, Adult Dosage 1993 Completed [facility] 00:00:00 [facility] Heamophilus 1993 Completed [facility] Influenza B 00:00:00 [facility] OPV 1993 Completed [facility] 00:00:00 [facility] Hep B, Adol or Pedi 1993 Completed [facility] Dosage 00:00:00 [facility] Polio (IPV/OPV) 1993 Completed [facility] 00:00:00 [facility] DTP 1993 Completed [facility] 00:00:00 [facility] HEP B, Adult Dosage 1993 Completed [facility] 00:00:00 [facility] Heamophilus 1993 Completed [facility] Influenza B 00:00:00 [facility] OPV 1993 Completed [facility] 00:00:00 [facility] Hep B, Adol or Pedi 1993 Completed [facility] Dosage 00:00:00 [facility] Polio (IPV/OPV) 1993 Completed [facility] 00:00:00 [facility] DTP 1993 Completed [facility] 00:00:00 [facility] HEP B, Adult Dosage 1993 Completed [facility] 00:00:00 [facility] Heamophilus 1993 Completed [facility] Influenza B 00:00:00 [facility] OPV 1993 Completed [facility] 00:00:00 [facility] Hep B, Adol or Pedi 1993 Completed [facility] Dosage 00:00:00 [facility] Polio (IPV/OPV) 1993 Completed [facility] 00:00:00 [facility] DTP 1993 Completed [facility] 00:00:00 [facility] HEP B, Adult Dosage 1993 Completed [facility] 00:00:00 [facility] Heamophilus 1993 Completed [facility] Influenza B 00:00:00 [facility] OPV 1993 Completed [facility] 00:00:00 [facility] Hep B, Adol or Pedi 1993 Completed [facility] Dosage 00:00:00 [facility] Polio (IPV/OPV) 1993 Completed [facility] 00:00:00 [facility] DTP 1993 Completed [facility] 00:00:00 [facility] HEP B, Adult Dosage 1993 Completed [facility] 00:00:00 [facility] Heamophilus 1993 Completed [facility] Influenza B 00:00:00 [facility] OPV 1993 Completed [facility] 00:00:00 [facility] Hep B, Adol or Pedi 1993 Completed [facility] Dosage 00:00:00 [facility] Polio (IPV/OPV) 1993 Completed [facility] 00:00:00 [facility] DTP 1993 Completed [facility] 00:00:00 [facility] HEP B, Adult Dosage 1993 Completed [facility] 00:00:00 [facility] Heamophilus 1993 Completed [facility] Influenza B 00:00:00 [facility] OPV 1993 Completed [facility] 00:00:00 [facility] Hep B, Adol or Pedi 1993 Completed [facility] Dosage 00:00:00 [facility] Polio (IPV/OPV) 1993 Completed [facility] 00:00:00 [facility] DTP 1993 Completed [facility] 00:00:00 [facility] HEP B, Adult Dosage 1993 Completed [facility] 00:00:00 [facility] Heamophilus 1993 Completed [facility] Influenza B 00:00:00 [facility] OPV 1993 Completed [facility] 00:00:00 [facility] Hep B, Adol or Pedi 1993 Completed [facility] Dosage 00:00:00 [facility] Polio (IPV/OPV) 1993 Completed [facility] 00:00:00 [facility] DTP 1993 Completed [facility] 00:00:00 [facility] HEP B, Adult Dosage 1993 Completed [facility] 00:00:00 [facility] Heamophilus 1993 Completed [facility] Influenza B 00:00:00 [facility] OPV 1993 Completed [facility] 00:00:00 [facility] Hep B, Adol or Pedi 1993 Completed [facility] Dosage 00:00:00 [facility] Polio (IPV/OPV) 1993 Completed [facility] 00:00:00 [facility] DTP 1993 Completed [facility] 00:00:00 [facility] HEP B, Adult Dosage 1993 Completed [facility] 00:00:00 [facility] Heamophilus 1993 Completed [facility] Influenza B 00:00:00 [facility] OPV 1993 Completed [facility] 00:00:00 [facility] Hep B, Adol or Pedi 1993 Completed [facility] Dosage 00:00:00 [facility] Polio (IPV/OPV) 1993 Completed [facility] 00:00:00 [facility] DTP 1993 Completed [facility] 00:00:00 [facility] HEP B, Adult Dosage 1993 Completed [facility] 00:00:00 [facility] Heamophilus 1993 Completed [facility] Influenza B 00:00:00 [facility] OPV 1993 Completed [facility] 00:00:00 [facility] Hep B, Adol or Pedi 1993 Completed [facility] Dosage 00:00:00 [facility] Polio (IPV/OPV) 1993 Completed [facility] 00:00:00 [facility] DTP 1993 Completed [facility] 00:00:00 [facility] HEP B, Adult Dosage 1993 Completed [facility] 00:00:00 [facility] Heamophilus 1993 Completed [facility] Influenza B 00:00:00 [facility] OPV 1993 Completed [facility] 00:00:00 [facility] Hep B, Adol or Pedi 1993 Completed [facility] Dosage 00:00:00 [facility] Polio (IPV/OPV) 1993 Completed [facility] 00:00:00 [facility] DTP 1993 Completed [facility] 00:00:00 [facility] HEP B, Adult Dosage 1993 Completed [facility] 00:00:00 [facility] Heamophilus 1993 Completed [facility] Influenza B 00:00:00 [facility] OPV 1993 Completed [facility] 00:00:00 [facility] Hep B, Adol or Pedi 1993 Completed [facility] Dosage 00:00:00 [facility] Polio (IPV/OPV) 1993 Completed [facility] 00:00:00 [facility] DTP 1993 Completed [facility] 00:00:00 [facility] HEP B, Adult Dosage 1993 Completed [facility] 00:00:00 [facility] Heamophilus 1993 Completed [facility] Influenza B 00:00:00 [facility] OPV 1993 Completed [facility] 00:00:00 [facility] Hep B, Adol or Pedi 1993 Completed [facility] Dosage 00:00:00 [facility] Polio (IPV/OPV) 1993 Completed [facility] 00:00:00 [facility] DTP 1993 Completed [facility] 00:00:00 [facility] HEP B, Adult Dosage 1993 Completed [facility] 00:00:00 [facility] Heamophilus 1993 Completed [facility] Influenza B 00:00:00 [facility] OPV 1993 Completed [facility] 00:00:00 [facility] Hep B, Adol or Pedi 1993 Completed [facility] Dosage 00:00:00 [facility] Polio (IPV/OPV) 1993 Completed [facility] 00:00:00 [facility] DTP 1993 Completed [facility] 00:00:00 [facility] HEP B, Adult Dosage 1993 Completed [facility] 00:00:00 [facility] Heamophilus 1993 Completed [facility] Influenza B 00:00:00 [facility] OPV 1993 Completed [facility] 00:00:00 [facility] Hep B, Adol or Pedi 1993 Completed [facility] Dosage 00:00:00 [facility] Polio (IPV/OPV) 1993 Completed [facility] 00:00:00 [facility] DTP 1993 Completed [facility] 00:00:00 [facility] HEP B, Adult Dosage 1993 Completed [facility] 00:00:00 [facility] Heamophilus 1993 Completed [facility] Influenza B 00:00:00 [facility] OPV 1993 Completed [facility] 00:00:00 [facility] Hep B, Adol or Pedi 1993 Completed [facility] Dosage 00:00:00 [facility] Polio (IPV/OPV) 1993 Completed [facility] 00:00:00 [facility] DTP 1993 Completed [facility] 00:00:00 [facility] HEP B, Adult Dosage 1993 Completed [facility] 00:00:00 [facility] Heamophilus 1993 Completed [facility] Influenza B 00:00:00 [facility] OPV 1993 Completed [facility] 00:00:00 [facility] Hep B, Adol or Pedi 1993 Completed [facility] Dosage 00:00:00 [facility] Polio (IPV/OPV) 1993 Completed [facility] 00:00:00 [facility] DTP 1993 Completed [facility] 00:00:00 [facility] HEP B, Adult Dosage 1993 Completed [facility] 00:00:00 [facility] Heamophilus 1993 Completed [facility] Influenza B 00:00:00 [facility] OPV 1993 Completed [facility] 00:00:00 [facility] Hep B, Adol or Pedi 1993 Completed [facility] Dosage 00:00:00 [facility] Polio (IPV/OPV) 1993 Completed [facility] 00:00:00 [facility] DTP 1993 Completed [facility] 00:00:00 [facility] HEP B, Adult Dosage 1993 Completed [facility] 00:00:00 [facility] Heamophilus 1993 Completed [facility] Influenza B 00:00:00 [facility] OPV 1993 Completed [facility] 00:00:00 [facility] Hep B, Adol or Pedi 1993 Completed [facility] Dosage 00:00:00 [facility] Polio (IPV/OPV) 1993 Completed [facility] 00:00:00 [facility] DTP 1993 Completed [facility] 00:00:00 [facility] HEP B, Adult Dosage 1993 Completed [facility] 00:00:00 [facility] Heamophilus 1993 Completed [facility] Influenza B 00:00:00 [facility] OPV 1993 Completed [facility] 00:00:00 [facility] Hep B, Adol or Pedi 1993 Completed [facility] Dosage 00:00:00 [facility] Polio (IPV/OPV) 1993 Completed [facility] 00:00:00 [facility] DTP 1993 Completed [facility] 00:00:00 [facility] HEP B, Adult Dosage 1993 Completed [facility] 00:00:00 [facility] Heamophilus 1993 Completed [facility] Influenza B 00:00:00 [facility] OPV 1993 Completed [facility] 00:00:00 [facility] Hep B, Adol or Pedi 1993 Completed [facility] Dosage 00:00:00 [facility] Polio (IPV/OPV) 1993 Completed [facility] 00:00:00 [facility] DTP 1993 Completed [facility] 00:00:00 [facility] HEP B, Adult Dosage 1993 Completed [facility] 00:00:00 [facility] Heamophilus 1993 Completed [facility] Influenza B 00:00:00 [facility] OPV 1993 Completed [facility] 00:00:00 [facility] Hep B, Adol or Pedi 1993 Completed [facility] Dosage 00:00:00 [facility] Polio (IPV/OPV) 1993 Completed [facility] 00:00:00 [facility] DTP 1993 Completed [facility] 00:00:00 [facility] HEP B, Adult Dosage 1993 Completed [facility] 00:00:00 [facility] Heamophilus 1993 Completed [facility] Influenza B 00:00:00 [facility] OPV 1993 Completed [facility] 00:00:00 [facility] Hep B, Adol or Pedi 1993 Completed [facility] Dosage 00:00:00 [facility] Polio (IPV/OPV) 1993 Completed [facility] 00:00:00 [facility] DTP 1993 Completed [facility] 00:00:00 [facility] HEP B, Adult Dosage 1993 Completed [facility] 00:00:00 [facility] Heamophilus 1993 Completed [facility] Influenza B 00:00:00 [facility] OPV 1993 Completed [facility] 00:00:00 [facility] Hep B, Adol or Pedi 1993 Completed [facility] Dosage 00:00:00 [facility] Polio (IPV/OPV) 1993 Completed [facility] 00:00:00 [facility] DTP 1993 Completed [facility] 00:00:00 [facility] HEP B, Adult Dosage 1993 Completed [facility] 00:00:00 [facility] Heamophilus 1993 Completed [facility] Influenza B 00:00:00 [facility] OPV 1993 Completed [facility] 00:00:00 [facility] Hep B, Adol or Pedi 1993 Completed [facility] Dosage 00:00:00 [facility] Polio (IPV/OPV) 1993 Completed [facility] 00:00:00 [facility] DTP 1993 Completed [facility] 00:00:00 [facility] HEP B, Adult Dosage 1993 Completed [facility] 00:00:00 [facility] Heamophilus 1993 Completed [facility] Influenza B 00:00:00 [facility] OPV 1993 Completed [facility] 00:00:00 [facility] Hep B, Adol or Pedi 1993 Completed [facility] Dosage 00:00:00 [facility] Polio (IPV/OPV) 1993 Completed [facility] 00:00:00 [facility] DTP 1993 Completed [facility] 00:00:00 [facility] HEP B, Adult Dosage 1993 Completed [facility] 00:00:00 [facility] Heamophilus 1993 Completed [facility] Influenza B 00:00:00 [facility] OPV 1993 Completed [facility] 00:00:00 [facility] Hep B, Adol or Pedi 1993 Completed [facility] Dosage 00:00:00 [facility] Polio (IPV/OPV) 1993 Completed [facility] 00:00:00 [facility] DTP 1993 Completed [facility] 00:00:00 [facility] HEP B, Adult Dosage 1993 Completed [facility] 00:00:00 [facility] Heamophilus 1993 Completed [facility] Influenza B 00:00:00 [facility] OPV 1993 Completed [facility] 00:00:00 [facility] Hep B, Adol or Pedi 1993 Completed [facility] Dosage 00:00:00 [facility] Polio (IPV/OPV) 1993 Completed [facility] 00:00:00 [facility] DTP 1993 Completed [facility] 00:00:00 [facility] HEP B, Adult Dosage 1993 Completed [facility] 00:00:00 [facility] Heamophilus 1993 Completed [facility] Influenza B 00:00:00 [facility] OPV 1993 Completed [facility] 00:00:00 [facility] Hep B, Adol or Pedi 1993 Completed [facility] Dosage 00:00:00 [facility] Polio (IPV/OPV) 1993 Completed [facility] 00:00:00 [facility] DTP 1993 Completed [facility] 00:00:00 [facility] HEP B, Adult Dosage 1993 Completed [facility] 00:00:00 [facility] Heamophilus 1993 Completed [facility] Influenza B 00:00:00 [facility] OPV 1993 Completed [facility] 00:00:00 [facility] Hep B, Adol or Pedi 1993 Completed [facility] Dosage 00:00:00 [facility] Polio (IPV/OPV) 1993 Completed [facility] 00:00:00 [facility] DTP 1993 Completed [facility] 00:00:00 [facility] HEP B, Adult Dosage 1993 Completed [facility] 00:00:00 [facility] Heamophilus 1993 Completed [facility] Influenza B 00:00:00 [facility] OPV 1993 Completed [facility] 00:00:00 [facility] Hep B, Adol or Pedi 1993 Completed [facility] Dosage 00:00:00 [facility] Polio (IPV/OPV) 1993 Completed [facility] 00:00:00 [facility] DTP 1993 Completed [facility] 00:00:00 [facility] HEP B, Adult Dosage 1993 Completed [facility] 00:00:00 [facility] Heamophilus 1993 Completed [facility] Influenza B 00:00:00 [facility] OPV 1993 Completed [facility] 00:00:00 [facility] Hep B, Adol or Pedi 1993 Completed [facility] Dosage 00:00:00 [facility] Polio (IPV/OPV) 1993 Completed [facility] 00:00:00 [facility] DTP 1993 Completed [facility] 00:00:00 [facility] HEP B, Adult Dosage 1993 Completed [facility] 00:00:00 [facility] Heamophilus 1993 Completed [facility] Influenza B 00:00:00 [facility] OPV 1993 Completed [facility] 00:00:00 [facility] Hep B, Adol or Pedi 1993 Completed [facility] Dosage 00:00:00 [facility] Polio (IPV/OPV) 1993 Completed [facility] 00:00:00 [facility] DTP 1993 Completed [facility] 00:00:00 [facility] HEP B, Adult Dosage 1993 Completed [facility] 00:00:00 [facility] Heamophilus 1993 Completed [facility] Influenza B 00:00:00 [facility] OPV 1993 Completed [facility] 00:00:00 [facility] Hep B, Adol or Pedi 1993 Completed [facility] Dosage 00:00:00 [facility] Polio (IPV/OPV) 1993 Completed [facility] 00:00:00 [facility] DTP 1993 Completed [facility] 00:00:00 [facility] HEP B, Adult Dosage 1993 Completed [facility] 00:00:00 [facility] Heamophilus 1993 Completed [facility] Influenza B 00:00:00 [facility] OPV 1993 Completed [facility] 00:00:00 [facility] Hep B, Adol or Pedi 1993 Completed [facility] Dosage 00:00:00 [facility] Polio (IPV/OPV) 1993 Completed [facility] 00:00:00 [facility] DTP 1993 Completed [facility] 00:00:00 [facility] HEP B, Adult Dosage 1993 Completed [facility] 00:00:00 [facility] Heamophilus 1993 Completed [facility] Influenza B 00:00:00 [facility] OPV 1993 Completed [facility] 00:00:00 [facility] Hep B, Adol or Pedi 1993 Completed [facility] Dosage 00:00:00 [facility] Polio (IPV/OPV) 1993 Completed [facility] 00:00:00 [facility] DTP 1993 Completed [facility] 00:00:00 [facility] HEP B, Adult Dosage 1993 Completed [facility] 00:00:00 [facility] Heamophilus 1993 Completed [facility] Influenza B 00:00:00 [facility] OPV 1993 Completed [facility] 00:00:00 [facility] Hep B, Adol or Pedi 1993 Completed [facility] Dosage 00:00:00 [facility] Polio (IPV/OPV) 1993 Completed [facility] 00:00:00 [facility] DTP 1993 Completed [facility] 00:00:00 [facility] HEP B, Adult Dosage 1993 Completed [facility] 00:00:00 [facility] Heamophilus 1993 Completed [facility] Influ[facility] B 00:00:00 [facility] OPV 1993 Completed [facility] 00:00:00 [facility] Hep B, Adol or Pedi 1993 Completed [facility] Dosage 00:00:00 [facility] Polio (IPV/OPV) 1993 Completed [facility] 00:00:00 [facility] DTP 1993 Completed [facility] 00:00:00 [facility] HEP B, Adult Dosage 1993 Completed [facility] 00:00:00 [facility] Heamophilus 1993 Completed [facility] Influenza B 00:00:00 [facility] OPV 1993 Completed [facility] 00:00:00 [facility] Hep B, Adol or Pedi 1993 Completed [facility] Dosage 00:00:00 [facility] Polio (IPV/OPV) 1993 Completed [facility] 00:00:00 [facility] DTP 1993 Completed [facility] 00:00:00 [facility] HEP B, Adult Dosage 1993 Completed [facility] 00:00:00 [facility] Heamophilus 1993 Completed [facility] Influenza B 00:00:00 [facility] OPV 1993 Completed [facility] 00:00:00 [facility] Hep B, Adol or Pedi 1993 Completed [facility] Dosage 00:00:00 [facility] Polio (IPV/OPV) 1993 Completed [facility] 00:00:00 [facility] DTP 1993 Completed [facility] 00:00:00 [facility] HEP B, Adult Dosage 1993 Completed [facility] 00:00:00 [facility] Heamophilus 1993 Completed [facility] Influenza B 00:00:00 [facility] OPV 1993 Completed [facility] 00[facility]00:00 [facility] Hep B, Adol or Pedi 1993 Completed [facility] Dosage 00:00:00 [facility] Polio (IPV/OPV) 1993 Completed [facility] 00:00:00 [facility] DTP 1993 Completed [facility] 00:00:00 [facility] HEP B, Adult Dosage 1993 Completed [facility] 00:00:00 [facility] Heamophilus 1993 Completed [facility] Influenza B 00:00:00 [facility] OPV 1993 Completed [facility] 00:00:00 [facility] Hep B, Adol or Pedi 1993 Completed [facility] Dosage 00:00:00 [facility] Polio (IPV/OPV) 1993 Completed [facility] 00:00:00 [facility] DTP 1993 Completed [facility] 00:00:00 [facility] HEP B, Adult Dosage 1993 Completed [facility] 00:00:00 [facility] Heamophilus 1993 Completed [facility] Influenza B 00:00:00 [facility] OPV 1993 Completed [facility] 00:00:00 [facility] Hep B, Adol or Pedi 1993 Completed [facility] Dosage 00:00:00 [facility] Polio (IPV/OPV) 1993 Completed [facility] 00:00:00 [facility] DTP 1993 Completed [facility] 00:00:00 [facility] HEP B, Adult Dosage 1993 Completed [facility] 00:00:00 [facility] Heamophilus 1993 Completed [facility] Influenza B 00:00:00 [facility] OPV 1993 Completed [facility] 00:00:00 [facility] Hep B, Adol or Pedi 1993 Completed [facility] Dosage 00:00:00 [facility] Polio (IPV/OPV) 1993 Completed [facility] 00:00:00 [facility] DTP 1993 Completed [facility] 00:00:00 [facility] HEP B, Adult Dosage 1993 Completed [facility] 00:00:00 [facility] Heamophilus 1993 Completed [facility] Influenza B 00:00:00 [facility] OPV 1993 Completed [facility] 00:00:00 [facility] Hep B, Adol or Pedi 1993 Completed [facility] Dosage 00:00:00 [facility] Polio (IPV/OPV) 1993 Completed [facility] 00:00:00 [facility] DTP 1993 Completed [facility] 00:00:00 [facility] HEP B, Adult Dosage 1993 Completed [facility] 00:00:00 [facility] Heamophilus 1993 Completed [facility] Influenza B 00:00:00 [facility] OPV 1993 Completed [facility] 00:00:00 [facility] Hep B, Adol or Pedi 1993 Completed [facility] Dosage 00:00:00 [facility] Polio (IPV/OPV) 1993 Completed [facility] 00:00:00 [facility] DTP 1993 Completed [facility] 00:00:00 [facility] HEP B, Adult Dosage 1993 Completed [facility] 00:00:00 [facility] Heamophilus 1993 Completed [facility] Influenza B 00:00:00 [facility] OPV 1993 Completed [facility] 00:00:00 [facility] Hep B, Adol or Pedi 1993 Completed [facility] Dosage 00:00:00 [facility] Polio (IPV/OPV) 1993 Completed [facility] 00:00:00 [facility] DTP 1993 Completed [facility] 00:00:00 [facility] HEP B, Adult Dosage 1993 Completed [facility] 00:00:00 [facility] Heamophilus 1993 Completed [facility] Influenza B 00:00:00 [facility] OPV 1993 Completed [facility] 00:00:00 [facility] Hep B, Adol or Pedi 1993 Completed [facility] Dosage 00:00:00 [facility] Polio (IPV/OPV) 1993 Completed [facility] 00:00:00 [facility] DTP 1993 Completed [facility] 00:00:00 [facility] HEP B, Adult Dosage 1993 Completed [facility] 00:00:00 [facility] Heamophilus 1993 Completed [facility] Influenza B 00:00:00 [facility] OPV 1993 Completed [facility] 00:00:00 [facility] Hep B, Adol or Pedi 1993 Completed [facility] Dosage 00:00:00 [facility] Polio (IPV/OPV) 1993 Completed [facility] 00:00:00 [facility] DTP 1993 Completed [facility] 00:00:00 [facility] HEP B, Adult Dosage 1993 Completed [facility] 00:00:00 [facility] Heamophilus 1993 Completed [facility] Influenza B 00:00:00 [facility] OPV 1993 Completed [facility] 00:00:00 [facility] Hep B, Adol or Pedi 1993 Completed [facility] Dosage 00:00:00 [facility] Polio (IPV/OPV) 1993 Completed [facility] 00:00:00 [facility] DTP 1993 Completed [facility] 00:00:00 [facility] HEP B, Adult Dosage 1993 Completed [facility] 00:00:00 [facility] Heamophilus 1993 Completed [facility] Influenza B 00:00:00 [facility] OPV 1993 Completed [facility] 00:00:00 [facility] Hep B, Adol or Pedi 1993 Completed [facility] Dosage 00:00:00 [facility] Polio (IPV/OPV) 1993 Completed [facility] 00:00:00 [facility] DTP 1993 Completed [facility] 00:00:00 [facility] HEP B, Adult Dosage 1993 Completed [facility] 00:00:00 [facility] Heamophilus 1993 Completed [facility] Influenza B 00:00:00 [facility] OPV 1993 Completed [facility] 00:00:00 [facility] Hep B, Adol or Pedi 1993 Completed [facility] Dosage 00:00:00 [facility] Polio (IPV/OPV) 1993 Completed [facility] 00:00:00 [facility] DTP 1993 Completed [facility] 00:00:00 [facility] HEP B, Adult Dosage 1993 Completed [facility] 00:00:00 [facility] Heamophilus 1993 Completed [facility] Influenza B 00:00:00 [facility] OPV 1993 Completed [facility] 00:00:00 [facility] Hep B, Adol or Pedi 1993 Completed [facility] Dosage 00:00:00 [facility] Polio (IPV/OPV) 1993 Completed [facility] 00:00:00 [facility] DTP 1993 Completed [facility] 00:00:00 [facility] HEP B, Adult Dosage 1993 Completed [facility] 00:00:00 [facility] Heamophilus 1993 Completed [facility] Influenza B 00:00:00 [facility] OPV 1993 Completed [facility] 00:00:00 [facility] Hep B, Adol or Pedi 1993 Completed [facility] Dosage 00:00:00 [facility] Polio (IPV/OPV) 1993 Completed [facility] 00:00:00 [facility] DTP 1993 Completed [facility] 00:00:00 [facility] HEP B, Adult Dosage 1993 Completed [facility] 00:00:00 [facility] Heamophilus 1993 Completed [facility] Influenza B 00:00:00 [facility] OPV 1993 Completed [facility] 00:00:00 [facility] Hep B, Adol or Pedi 1993 Completed [facility] Dosage 00:00:00 [facility] Polio (IPV/OPV) 1993 Completed [facility] 00:00:00 [facility] DTP 1993 Completed [facility] 00:00:00 [facility] HEP B, Adult Dosage 1993 Completed [facility] 00:00:00 [facility] Heamophilus 1993 Completed [facility] Influenza B 00:00:00 [facility] OPV 1993 Completed [facility] 00:00:00 [facility] Hep B, Adol or Pedi 1993 Completed [facility] Dosage 00:00:00 [facility] Polio (IPV/OPV) 1993 Completed [facility] 00:00:00 [facility] DTP 1993 Completed [facility] 00:00:00 [facility] HEP B, Adult Dosage 1993 Completed [facility] 00:00:00 [facility] Heamophilus 1993 Completed [facility] Influenza B 00:00:00 [facility] OPV 1993 Completed [facility] 00:00:00 [facility] Hep B, Adol or Pedi 1993 Completed [facility] Dosage 00:00:00 [facility] Polio (IPV/OPV) 1993 Completed [facility] 00:00:00 [facility] DTP 1993 Completed [facility] 00:00:00 [facility] HEP B, Adult Dosage 1993 Completed [facility] 00:00:00 [facility] Heamophilus 1993 Completed [facility] Influenza B 00:00:00 [facility] OPV 1993 Completed [facility] 00:00:00 [facility] Hep B, Adol or Pedi 1993 Completed [facility] Dosage 00:00:00 [facility] Polio (IPV/OPV) 1993 Completed [facility] 00:00:00 [facility] DTP 1993 Completed [facility] 00:00:00 [facility] HEP B, Adult Dosage 1993 Completed [facility] 00:00:00 [facility] Heamophilus 1993 Completed [facility] Influenza B 00:00:00 [facility] OPV 1993 Completed [facility] 00:00:00 [facility] Hep B, Adol or Pedi 1993 Completed [facility] Dosage 00:00:00 [facility] Polio (IPV/OPV) 1993 Completed [facility] 00:00:00 [facility] DTP 1993 Completed [facility] 00:00:00 [facility] HEP B, Adult Dosage 1993 Completed [facility] 00:00:00 [facility] Heamophilus 1993 Completed [facility] Influenza B 00:00:00 [facility] OPV 1993 Completed [facility] 00:00:00 [facility] Hep B, Adol or Pedi 1993 Completed [facility] Dosage 00:00:00 [facility] Polio (IPV/OPV) 1993 Completed [facility] 00:00:00 [facility] DTP 1993 Completed [facility] 00:00:00 [facility] HEP B, Adult Dosage 1993 Completed [facility] 00:00:00 [facility] Heamophilus 1993 Completed [facility] Influenza B 00:00:00 [facility] OPV 1993 Completed [facility] 00:00:00 [facility] Hep B, Adol or Pedi 1993 Completed [facility] Dosage 00:00:00 [facility] Polio (IPV/OPV) 1993 Completed [facility] 00:00:00 [facility] DTP 1993 Completed [facility] 00:00:00 [facility] HEP B, Adult Dosage 1993 Completed [facility] 00:00:00 [facility] Heamophilus 1993 Completed [facility] Influenza B 00:00:00 [facility] OPV 1993 Completed [facility] 00:00:00 [facility] Hep B, Adol or Pedi 1993 Completed [facility] Dosage 00:00:00 [facility] Polio (IPV/OPV) 1993 Completed [facility] 00:00:00 [facility] DTP 1993 Completed [facility] 00:00:00 [facility] HEP B, Adult Dosage 1993 Completed [facility] 00:00:00 [facility] Heamophilus 1993 Completed [facility] Influenza B 00:00:00 [facility] OPV 1993 Completed [facility] 00:00:00 [facility] Hep B, Adol or Pedi 1993 Completed [facility] Dosage 00:00:00 [facility] Polio (IPV/OPV) 1993 Completed [facility] 00:00:00 [facility] DTP 1993 Completed [facility] 00:00:00 [facility] HEP B, Adult Dosage 1993 Completed [facility] 00:00:00 [facility] Heamophilus 1993 Completed [facility] Influenza B 00:00:00 [facility] OPV 1993 Completed [facility] 00:00:00 [facility] Hep B, Adol or Pedi 1993 Completed [facility] Dosage 00:00:00 [facility] Polio (IPV/OPV) 1993 Completed [facility] 00:00:00 [facility] DTP 1993 Completed [facility] 00:00:00 [facility] HEP B, Adult Dosage 1993 Completed [facility] 00:00:00 [facility] Heamophilus 1993 Completed [facility] Influenza B 00:00:00 [facility] OPV 1993 Completed [facility] 00:00:00 [facility] Hep B, Adol or Pedi 1993 Completed [facility] Dosage 00:00:00 [facility] Polio (IPV/OPV) 1993 Completed [facility] 00:00:00 [facility] DTP 1993 Completed [facility] 00:00:00 [facility] HEP B, Adult Dosage 1993 Completed [facility] 00:00:00 [facility] Heamophilus 1993 Completed [facility] Influenza B 00:00:00 [facility] OPV 1993 Completed [facility] 00:00:00 [facility] Hep B, Adol or Pedi 1993 Completed [facility] Dosage 00:00:00 [facility] Polio (IPV/OPV) 1993 Completed [facility] 00:00:00 [facility] DTP 1993 Completed [facility] 00:00:00 [facility] HEP B, Adult Dosage 1993 Completed [facility] 00:00:00 [facility] Heamophilus 1993 Completed [facility] Influenza B 00:00:00 [facility] OPV 1993 Completed [facility] 00:00:00 [facility] Hep B, Adol or Pedi 1993 Completed [facility] Dosage 00:00:00 [facility] Polio (IPV/OPV) 1993 Completed [facility] 00:00:00 [facility] DTP 1993 Completed [facility] 00:00:00 [facility] HEP B, Adult Dosage 1993 Completed [facility] 00:00:00 [facility] Heamophilus 1993 Completed [facility] Influenza B 00:00:00 [facility] OPV 1993 Completed [facility] 00:00:00 [facility] Hep B, Adol or Pedi 1993 Completed [facility] Dosage 00:00:00 [facility] Polio (IPV/OPV) 1993 Completed [facility] 00:00:00 [facility] DTP 1993 Completed [facility] 00:00:00 [facility] HEP B, Adult Dosage 1993 Completed [facility] 00:00:00 [facility] Heamophilus 1993 Completed [facility] Influenza B 00:00:00 [facility] OPV 1993 Completed [facility] 00:00:00 [facility] Hep B, Adol or Pedi 1993 Completed [facility] Dosage 00:00:00 [facility] Polio (IPV/OPV) 1993 Completed [facility] 00:00:00 [facility] DTP 1993 Completed [facility] 00:00:00 [facility] HEP B, Adult Dosage 1993 Completed [facility] 00:00:00 [facility] Heamophilus 1993 Completed [facility] Influenza B 00:00:00 [facility] OPV 1993 Completed [facility] 00:00:00 [facility] Hep B, Adol or Pedi 1993 Completed [facility] Dosage 00:00:00 [facility] Polio (IPV/OPV) 1993 Completed [facility] 00:00:00 [facility] DTP 1993 Completed [facility] 00:00:00 [facility] HEP B, Adult Dosage 1993 Completed [facility] 00:00:00 [facility] Heamophilus 1993 Completed [facility] Influenza B 00:00:00 [facility] OPV 1993 Completed [facility] 00:00:00 [facility] Hep B, Adol or Pedi 1993 Completed [facility] Dosage 00:00:00 [facility] Polio (IPV/OPV) 1993 Completed [facility] 00:00:00 [facility] DTP 1993 Completed [facility] 00:00:00 [facility] HEP B, Adult Dosage 1993 Completed [facility] 00:00:00 [facility] Heamophilus 1993 Completed [facility] Influenza B 00:00:00 [facility] OPV 1993 Completed [facility] 00:00:00 [facility] Hep B, Adol or Pedi 1993 Completed [facility] Dosage 00:00:00 [facility] Polio (IPV/OPV) 1993 Completed [facility] 00:00:00 [facility] DTP 1993 Completed [facility] 00:00:00 [facility] HEP B, Adult Dosage 1993 Completed [facility] 00:00:00 [facility] Heamophilus 1993 Completed [facility] Influenza B 00:00:00 [facility] OPV 1993 Completed [facility] 00:00:00 [facility] Hep B, Adol or Pedi 1993 Completed [facility] Dosage 00:00:00 [facility] Polio (IPV/OPV) 1993 Completed [facility] 00:00:00 [facility] DTP 1993 Completed [facility] 00:00:00 [facility] HEP B, Adult Dosage 1993 Completed [facility] 00:00:00 [facility] Heamophilus 1993 Completed [facility] Influenza B 00:00:00 [facility] OPV 1993 Completed [facility] 00:00:00 [facility] Hep B, Adol or Pedi 1993 Completed [facility] Dosage 00:00:00 [facility] Polio (IPV/OPV) 1993 Completed [facility] 00:00:00 [facility] DTP 1993 Completed [facility] 00:00:00 [facility] HEP B, Adult Dosage 1993 Completed [facility] 00:00:00 [facility] Heamophilus 1993 Completed [facility] Influenza B 00:00:00 [facility] OPV 1993 Completed [facility] 00:00:00 [facility] Hep B, Adol or Pedi 1993 Completed [facility] Dosage 00:00:00 [facility] Polio (IPV/OPV) 1993 Completed [facility] 00:00:00 [facility] DTP 1993 Completed [facility] 00:00:00 [facility] HEP B, Adult Dosage 1993 Completed [facility] 00:00:00 [facility] Heamophilus 1993 Completed [facility] Influenza B 00:00:00 [facility] OPV 1993 Completed [facility] 00:00:00 [facility] Hep B, Adol or Pedi 1993 Completed [facility] Dosage 00:00:00 [facility] Polio (IPV/OPV) 1993 Completed [facility] 00:00:00 [facility] DTP 1993 Completed [facility] 00:00:00 [facility] HEP B, Adult Dosage 1993 Completed [facility] 00:00:00 [facility] Heamophilus 1993 Completed [facility] Influenza B 00:00:00 [facility] OPV 1993 Completed [facility] 00:00:00 [facility] Hep B, Adol or Pedi 1993 Completed [facility] Dosage 00:00:00 [facility] Polio (IPV/OPV) 1993 Completed [facility] 00:00:00 [facility] DTP 1993 Completed [facility] 00:00:00 [facility] HEP B, Adult Dosage 1993 Completed [facility] 00:00:00 [facility] Heamophilus 1993 Completed [facility] Influenza B 00:00:00 [facility] OPV 1993 Completed [facility] 00:00:00 [facility] Hep B, Adol or Pedi 1993 Completed [facility] Dosage 00:00:00 [facility] Polio (IPV/OPV) 1993 Completed [facility] 00:00:00 [facility] DTP 1993 Completed [facility] 00:00:00 [facility] HEP B, Adult Dosage 1993 Completed [facility] 00:00:00 [facility] Heamophilus 1993 Completed [facility] Influenza B 00:00:00 [facility] OPV 1993 Completed [facility] 00:00:00 [facility] Hep B, Adol or Pedi 1993 Completed [facility] Dosage 00:00:00 [facility] Polio (IPV/OPV) 1993 Completed [facility] 00:00:00 [facility] DTP 1993 Completed [facility] 00:00:00 [facility] HEP B, Adult Dosage 1993 Completed [facility] 00:00:00 [facility] Heamophilus 1993 Completed [facility] Influenza B 00:00:00 [facility] OPV 1993 Completed [facility] 00:00:00 [facility] Hep B, Adol or Pedi 1993 Completed [facility] Dosage 00:00:00 [facility] Polio (IPV/OPV) 1993 Completed [facility] 00:00:00 [facility] DTP 1993 Completed [facility] 00:00:00 [facility] HEP B, Adult Dosage 1993 Completed [facility] 00:00:00 [facility] Heamophilus 1993 Completed [facility] Influ[facility] B 00:00:00 [facility] OPV 1993 Completed [facility] 00:00:00 [facility] Hep B, Adol or Pedi 1993 Completed [facility] Dosage 00:00:00 [facility] Polio (IPV/OPV) 1993 Completed [facility] 00:00:00 [facility] DTP 1993 Completed [facility] 00:00:00 [facility] HEP B, Adult Dosage 1993 Completed [facility] 00:00:00 [facility] Heamophilus 1993 Completed [facility] Influ[facility] B 00:00:00 [facility] OPV 1993 Completed [facility] 00:00:00 [facility] Hep B, Adol or Pedi 1993 Completed [facility] Dosage 00:00:00 [facility] Polio (IPV/OPV) 1993 Completed [facility] 00:00:00 [facility] DTP 1993 Completed [facility] 00:00:00 [facility] HEP B, Adult Dosage 1993 Completed [facility] 00:00:00 [facility] Heamophilus 1993 Completed [facility] Influenza B 00:00:00 [facility] OPV 1993 Completed [facility] 00:00:00 [facility] Hep B, Adol or Pedi 1993 Completed [facility] Dosage 00:00:00 [facility] Polio (IPV/OPV) 1993 Completed [facility] 00:00:00 [facility] DTP 1993 Completed [facility] 00:00:00 [facility] HEP B, Adult Dosage 1993 Completed [facility] 00:00:00 [facility] Heamophilus 1993 Completed [facility] Influenza B 00:00:00 [facility] OPV 1993 Completed [facility] 00:00:00 [facility] Hep B, Adol or Pedi 1993 Completed [facility] Dosage 00:00:00 [facility] Polio (IPV/OPV) 1993 Completed [facility] 00:00:00 [facility] DTP 1993 Completed [facility]00 [facility] [facility] HEP B, Adult Dosage 1993 Completed [facility] 00:00:00 [facility] Heamophilus 1993 Completed [facility] Influenza B 00:00:00 [facility] OPV 1993 Completed [facility] 00:00:00 [facility] Hep B, Adol or Pedi 1993 Completed [facility] Dosage 00:00:00 [facility] Polio (IPV/OPV) 1993 Completed [facility] 00[facility]00:00 [facility] DTP 1993 Completed [facility] 00:00:00 [facility] HEP B, Adult Dosage 1993 Completed [facility] 00:00:00 [facility] Heamophilus 1993 Completed [facility] Influenza B 00:00:00 [facility] OPV 1993 Completed [facility] 00:00:00 [facility] Hep B, Adol or Pedi 1993 Completed [facility] Dosage 00:00:00 [facility] Polio (IPV/OPV) 1993 Completed [facility] 00:00:00 [facility] DTP 1993 Completed [facility] 00:00:00 [facility] HEP B, Adult Dosage 1993 Completed [facility] 00:00:00 [facility] Heamophilus 1993 Completed [facility] Influenza B 00:00:00 [facility] OPV 1993 Completed [facility] 00:00:00 [facility] Hep B, Adol or Pedi 1993 Completed [facility] Dosage 00:00:00 [facility] Polio (IPV/OPV) 1993 Completed [facility] 00:00:00 [facility] DTP 1993 Completed [facility] 00:00:00 [facility] HEP B, Adult Dosage 1993 Completed [facility] 00:00:00 [facility] Heamophilus 1993 Completed [facility] Influenza B 00:00:00 [facility] OPV 1993 Completed [facility] 00:00:00 [facility] Hep B, Adol or Pedi 1993 Completed [facility] Dosage 00:00:00 [facility] Polio (IPV/OPV) 1993 Completed [facility] 00:00:00 [facility] DTP 1993 Completed [facility] 00:00:00 [facility] HEP B, Adult Dosage 1993 Completed [facility] 00:00:00 [facility] Heamophilus 1993 Completed [facility] Influenza B 00:00:00 [facility] OPV 1993 Completed [facility] 00:00:00 [facility] Hep B, Adol or Pedi 1993 Completed [facility] Dosage 00:00:00 [facility] Polio (IPV/OPV) 1993 Completed [facility] 00:00:00 [facility] DTP 1993 Completed [facility] 00:00:00 [facility] HEP B, Adult Dosage 1993 Completed [facility] 00:00:00 [facility] Heamophilus 1993 Completed [facility] Influenza B 00:00:00 [facility] OPV 1993 Completed [facility] 00:00:00 [facility] Hep B, Adol or Pedi 1993 Completed [facility] Dosage 00:00:00 [facility] Polio (IPV/OPV) 1993 Completed [facility] 00:00:00 [facility] DTP 1993 Completed [facility] 00:00:00 [facility] HEP B, Adult Dosage 1993 Completed [facility] 00:00:00 [facility] Heamophilus 1993 Completed [facility] Influenza B 00:00:00 [facility] OPV 1993 Completed [facility] 00:00:00 [facility] Hep B, Adol or Pedi 1993 Completed [facility] Dosage 00:00:00 [facility] Polio (IPV/OPV) 1993 Completed [facility] 00:00:00 [facility] DTP 1993 Completed [facility] 00:00:00 [facility] HEP B, Adult Dosage 1993 Completed [facility] 00:00:00 [facility] Heamophilus 1993 Completed [facility] Influenza B 00:00:00 [facility] OPV 1993 Completed [facility] 00:00:00 [facility] Hep B, Adol or Pedi 1993 Completed [facility] Dosage 00:00:00 [facility] Polio (IPV/OPV) 1993 Completed [facility] 00:00:00 [facility] DTP 1993 Completed [facility] 00:00:00 [facility] HEP B, Adult Dosage 1993 Completed [facility] 00:00:00 [facility] Heamophilus 1993 Completed [facility] Influenza B 00:00:00 [facility] OPV 1993 Completed [facility] 00:00:00 [facility] Hep B, Adol or Pedi 1993 Completed [facility] Dosage 00:00:00 [facility] Polio (IPV/OPV) 1993 Completed [facility] 00:00:00 [facility] DTP 1993 Completed [facility] 00:00:00 [facility] HEP B, Adult Dosage 1993 Completed [facility] 00:00:00 [facility] Heamophilus 1993 Completed [facility] Influenza B 00:00:00 [facility] OPV 1993 Completed [facility] 00:00:00 [facility] Hep B, Adol or Pedi 1993 Completed [facility] Dosage 00:00:00 [facility] Polio (IPV/OPV) 1993 Completed [facility] 00:00:00 [facility] DTP 1993 Completed [facility] 00:00:00 [facility] HEP B, Adult Dosage 1993 Completed [facility] 00:00:00 [facility] Heamophilus 1993 Completed [facility] Influenza B 00:00:00 [facility] OPV 1993 Completed [facility] 00:00:00 [facility] Hep B, Adol or Pedi 1993 Completed [facility] Dosage 00:00:00 [facility] Polio (IPV/OPV) 1993 Completed [facility] 00:00:00 [facility] DTP 1993 Completed [facility] 00:00:00 [facility] HEP B, Adult Dosage 1993 Completed [facility] 00:00:00 [facility] Heamophilus 1993 Completed [facility] Influenza B 00:00:00 [facility] OPV 1993 Completed [facility] 00:00:00 [facility] Hep B, Adol or Pedi 1993 Completed [facility] Dosage 00:00:00 [facility] Polio (IPV/OPV) 1993 Completed [facility] 00:00:00 [facility] DTP 1993 Completed [facility] 00:00:00 [facility] HEP B, Adult Dosage 1993 Completed [facility] 00:00:00 [facility] Heamophilus 1993 Completed [facility] Influenza B 00:00:00 [facility] OPV 1993 Completed [facility] 00:00:00 [facility] Hep B, Adol or Pedi 1993 Completed [facility] Dosage 00:00:00 [facility] Polio (IPV/OPV) 1993 Completed [facility] 00:00:00 [facility] DTP 1993 Completed [facility] 00:00:00 [facility] HEP B, Adult Dosage 1993 Completed [facility] 00:00:00 [facility] Heamophilus 1993 Completed [facility] Influenza B 00:00:00 [facility] OPV 1993 Completed [facility] 00:00:00 [facility] Hep B, Adol or Pedi 1993 Completed [facility] Dosage 00:00:00 [facility] Polio (IPV/OPV) 1993 Completed [facility] 00:00:00 [facility] DTP 1993 Completed [facility] 00:00:00 [facility] HEP B, Adult Dosage 1993 Completed [facility] 00:00:00 [facility] Heamophilus 1993 Completed [facility] Influenza B 00:00:00 [facility] OPV 1993 Completed [facility] 00:00:00 [facility] Hep B, Adol or Pedi 1993 Completed [facility] Dosage 00:00:00 [facility] Polio (IPV/OPV) 1993 Completed [facility] 00:00:00 [facility] DTP 1993 Completed [facility] 00:00:00 [facility] HEP B, Adult Dosage 1993 Completed [facility] 00:00:00 [facility] Heamophilus 1993 Completed [facility] Influenza B 00:00:00 [facility] OPV 1993 Completed [facility] 00:00:00 [facility] Hep B, Adol or Pedi 1993 Completed [facility] Dosage 00:00:00 [facility] Polio (IPV/OPV) 1993 Completed [facility] 00:00:00 [facility] DTP 1993 Completed [facility] 00:00:00 [facility] HEP B, Adult Dosage 1993 Completed [facility] 00:00:00 [facility] Heamophilus 1993 Completed [facility] Influenza B 00:00:00 [facility] OPV 1993 Completed [facility] 00:00:00 [facility] Hep B, Adol or Pedi 1993 Completed [facility] Dosage 00:00:00 [facility] Polio (IPV/OPV) 1993 Completed [facility] 00:00:00 [facility] DTP 1993 Completed [facility] 00:00:00 [facility] HEP B, Adult Dosage 1993 Completed [facility] 00:00:00 [facility] Heamophilus 1993 Completed [facility] Influenza B 00:00:00 [facility] OPV 1993 Completed [facility] 00:00:00 [facility] Hep B, Adol or Pedi 1993 Completed [facility] Dosage 00:00:00 [facility] Polio (IPV/OPV) 1993 Completed [facility] 00:00:00 [facility] DTP 1993 Completed [facility] 00:00:00 [facility] HEP B, Adult Dosage 1993 Completed [facility] 00:00:00 [facility] Heamophilus 1993 Completed [facility] Influenza B 00:00:00 [facility] OPV 1993 Completed [facility] 00:00:00 [facility] Hep B, Adol or Pedi 1993 Completed [facility] Dosage 00:00:00 [facility] Polio (IPV/OPV) 1993 Completed [facility] 00:00:00 [facility] DTP 1993 Completed [facility] 00:00:00 [facility] HEP B, Adult Dosage 1993 Completed [facility] 00:00:00 [facility] Heamophilus 1993 Completed [facility] Influenza B 00:00:00 [facility] OPV 1993 Completed [facility] 00:00:00 [facility] Hep B, Adol or Pedi 1993 Completed [facility] Dosage 00:00:00 [facility] Polio (IPV/OPV) 1993 Completed [facility] 00:00:00 [facility] DTP 1993 Completed [facility] 00:00:00 [facility] HEP B, Adult Dosage 1993 Completed [facility] 00:00:00 [facility] Heamophilus 1993 Completed [facility] Influenza B 00:00:00 [facility] OPV 1993 Completed [facility] 00:00:00 [facility] Hep B, Adol or Pedi 1993 Completed [facility] Dosage 00:00:00 [facility] Polio (IPV/OPV) 1993 Completed [facility] 00:00:00 [facility] DTP 1993 Completed [facility] 00:00:00 [facility] HEP B, Adult Dosage 1993 Completed [facility] 00:00:00 [facility] Heamophilus 1993 Completed [facility] Influenza B 00:00:00 [facility] OPV 1993 Completed [facility] 00:00:00 [facility] Hep B, Adol or Pedi 1993 Completed [facility] Dosage 00:00:00 [facility] Polio (IPV/OPV) 1993 Completed [facility] 00:00:00 [facility] HEP B, Adult Dosage 1993 Completed [facility] 00:00:00 [facility] Hep B, Adol or Pedi 1993 Completed [facility] Dosage 00:00:00 [facility] HEP B, Adult Dosage 1993 Completed [facility] 00:00:00 [facility] Hep B, Adol or Pedi 1993 Completed [facility] Dosage 00:00:00 [facility] HEP B, Adult Dosage 1993 Completed [facility] 00:00:00 [facility] Hep B, Adol or Pedi 1993 Completed [facility] Dosage 00:00:00 [facility] HEP B, Adult Dosage 1993 Completed [facility] 00:00:00 [facility] Hep B, Adol or Pedi 1993 Completed [facility] Dosage 00:00:00 [facility] HEP B, Adult Dosage 1993 Completed [facility] 00:00:00 [facility] Hep B, Adol or Pedi 1993 Completed [facility] Dosage 00:00:00 [facility] HEP B, Adult Dosage 1993 Completed [facility] 00:00:00 [facility] Hep B, Adol or Pedi 1993 Completed [facility] Dosage 00:00:00 [facility] HEP B, Adult Dosage 1993 Completed [facility] 00:00:00 [facility] Hep B, Adol or Pedi 1993 Completed [facility] Dosage 00:00:00 [facility] HEP B, Adult Dosage 1993 Completed [facility] 00:00:00 [facility] Hep B, Adol or Pedi 1993 Completed [facility] Dosage 00:00:00 [facility] HEP B, Adult Dosage 1993 Completed [facility] 00:00:00 [facility] Hep B, Adol or Pedi 1993 Completed [facility] Dosage 00:00:00 [facility] HEP B, Adult Dosage 1993 Completed [facility] 00:00:00 [facility] Hep B, Adol or Pedi 1993 Completed [facility] Dosage 00:00:00 [facility] HEP B, Adult Dosage 1993 Completed [facility] 00:00:00 [facility] Hep B, Adol or Pedi 1993 Completed [facility] Dosage 00:00:00 [facility] HEP B, Adult Dosage 1993 Completed [facility] 00:00:00 [facility] Hep B, Adol or Pedi 1993 Completed [facility] Dosage 00:00:00 [facility] HEP B, Adult Dosage 1993 Completed [facility] 00:00:00 [facility] Hep B, Adol or Pedi 1993 Completed [facility] Dosage 00:00:00 [facility] HEP B, Adult Dosage 1993 Completed [facility] 00:00:00 [facility] Hep B, Adol or Pedi 1993 Completed [facility] Dosage 00:00:00 [facility] HEP B, Adult Dosage 1993 Completed [facility] 00:00:00 [facility] Hep B, Adol or Pedi 1993 Completed [facility] Dosage 00:00:00 [facility] HEP B, Adult Dosage 1993 Completed [facility] 00:00:00 [facility] Hep B, Adol or Pedi 1993 Completed [facility] Dosage 00:00:00 [facility] HEP B, Adult Dosage 1993 Completed [facility] 00:00:00 [facility] Hep B, Adol or Pedi 1993 Completed [facility] Dosage 00:00:00 [facility] HEP B, Adult Dosage 1993 Completed [facility] 00:00:00 [facility] Hep B, Adol or Pedi 1993 Completed [facility] Dosage 00:00:00 [facility] HEP B, Adult Dosage 1993 Completed [facility] 00:00:00 [facility] Hep B, Adol or Pedi 1993 Completed [facility] Dosage 00:00:00 [facility] HEP B, Adult Dosage 1993 Completed [facility] 00:00:00 [facility] Hep B, Adol or Pedi 1993 Completed [facility] Dosage 00:00:00 [facility] HEP B, Adult Dosage 1993 Completed [facility] 00:00:00 [facility] Hep B, Adol or Pedi 1993 Completed [facility] Dosage 00:00:00 [facility] HEP B, Adult Dosage 1993 Completed [facility] 00:00:00 [facility] Hep B, Adol or Pedi 1993 Completed [facility] Dosage 00:00:00 [facility] HEP B, Adult Dosage 1993 Completed [facility] 00:00:00 [facility] Hep B, Adol or Pedi 1993 Completed [facility] Dosage 00:00:00 [facility] HEP B, Adult Dosage 1993 Completed [facility] 00:00:00 [facility] Hep B, Adol or Pedi 1993 Completed [facility] Dosage 00:00:00 [facility] HEP B, Adult Dosage 1993 Completed [facility] 00:00:00 [facility] Hep B, Adol or Pedi 1993 Completed [facility] Dosage 00:00:00 [facility] HEP B, Adult Dosage 1993 Completed [facility] 00:00:00 [facility] Hep B, Adol or Pedi 1993 Completed [facility] Dosage 00:00:00 [facility] HEP B, Adult Dosage 1993 Completed [facility] 00:00:00 [facility] Hep B, Adol or Pedi 1993 Completed [facility] Dosage 00:00:00 [facility] HEP B, Adult Dosage 1993 Completed [facility] 00:00:00 [facility] Hep B, Adol or Pedi 1993 Completed [facility] Dosage 00:00:00 [facility] HEP B, Adult Dosage 1993 Completed [facility] 00:00:00 [facility] Hep B, Adol or Pedi 1993 Completed [facility] Dosage 00:00:00 [facility] HEP B, Adult Dosage 1993 Completed [facility] 00:00:00 [facility] Hep B, Adol or Pedi 1993 Completed [facility] Dosage 00:00:00 [facility] HEP B, Adult Dosage 1993 Completed [facility] 00:00:00 [facility] Hep B, Adol or Pedi 1993 Completed [facility] Dosage 00:00:00 [facility] HEP B, Adult Dosage 1993 Completed [facility] 00:00:00 [facility] Hep B, Adol or Pedi 1993 Completed [facility] Dosage 00:00:00 [facility] HEP B, Adult Dosage 1993 Completed [facility] 00:00:00 [facility] Hep B, Adol or Pedi 1993 Completed [facility] Dosage 00:00:00 [facility] HEP B, Adult Dosage 1993 Completed [facility] 00:00:00 [facility] Hep B, Adol or Pedi 1993 Completed [facility] Dosage 00:00:00 [facility] HEP B, Adult Dosage 1993 Completed [facility] 00:00:00 [facility] Hep B, Adol or Pedi 1993 Completed [facility] Dosage 00:00:00 [facility] HEP B, Adult Dosage 1993 Completed [facility] 00:00:00 [facility] Hep B, Adol or Pedi 1993 Completed [facility] Dosage 00:00:00 [facility] HEP B, Adult Dosage 1993 Completed [facility] 00:00:00 [facility] Hep B, Adol or Pedi 1993 Completed [facility] Dosage 00:00:00 [facility] HEP B, Adult Dosage 1993 Completed [facility] 00:00:00 [facility] Hep B, Adol or Pedi 1993 Completed [facility] Dosage 00:00:00 [facility] HEP B, Adult Dosage 1993 Completed [facility] 00:00:00 [facility] Hep B, Adol or Pedi 1993 Completed [facility] Dosage 00:00:00 [facility] HEP B, Adult Dosage 1993 Completed [facility] 00:00:00 [facility] Hep B, Adol or Pedi 1993 Completed [facility] Dosage 00:00:00 [facility] HEP B, Adult Dosage 1993 Completed [facility] 00:00:00 [facility] Hep B, Adol or Pedi 1993 Completed [facility] Dosage 00:00:00 [facility] HEP B, Adult Dosage 1993 Completed [facility] 00:00:00 [facility] Hep B, Adol or Pedi 1993 Completed [facility] Dosage 00:00:00 [facility] HEP B, Adult Dosage 1993 Completed [facility] 00:00:00 [facility] Hep B, Adol or Pedi 1993 Completed [facility] Dosage 00:00:00 [facility] HEP B, Adult Dosage 1993 Completed [facility] 00:00:00 [facility] Hep B, Adol or Pedi 1993 Completed [facility] Dosage 00:00:00 [facility] HEP B, Adult Dosage 1993 Completed [facility] 00:00:00 [facility] Hep B, Adol or Pedi 1993 Completed [facility] Dosage 00:00:00 [facility] HEP B, Adult Dosage 1993 Completed [facility] 00:00:00 [facility] Hep B, Adol or Pedi 1993 Completed [facility] Dosage 00:00:00 [facility] HEP B, Adult Dosage 1993 Completed [facility] 00:00:00 [facility] Hep B, Adol or Pedi 1993 Completed [facility] Dosage 00:00:00 [facility] HEP B, Adult Dosage 1993 Completed [facility] 00:00:00 [facility] Hep B, Adol or Pedi 1993 Completed [facility] Dosage 00:00:00 [facility] HEP B, Adult Dosage 1993 Completed [facility] 00:00:00 [facility] Hep B, Adol or Pedi 1993 Completed [facility] Dosage 00:00:00 [facility] HEP B, Adult Dosage 1993 Completed [facility] 00:00:00 [facility] Hep B, Adol or Pedi 1993 Completed [facility] Dosage 00:00:00 [facility] HEP B, Adult Dosage 1993 Completed [facility] 00:00:00 [facility] Hep B, Adol or Pedi 1993 Completed [facility] Dosage 00:00:00 [facility] HEP B, Adult Dosage 1993 Completed [facility] 00:00:00 [facility] Hep B, Adol or Pedi 1993 Completed [facility] Dosage 00:00:00 [facility] HEP B, Adult Dosage 1993 Completed [facility] 00:00:00 [facility] Hep B, Adol or Pedi 1993 Completed [facility] Dosage 00:00:00 [facility] HEP B, Adult Dosage 1993 Completed [facility] 00:00:00 [facility] Hep B, Adol or Pedi 1993 Completed [facility] Dosage 00:00:00 [facility] HEP B, Adult Dosage 1993 Completed [facility] 00:00:00 [facility] Hep B, Adol or Pedi 1993 Completed [facility] Dosage 00:00:00 [facility] HEP B, Adult Dosage 1993 Completed [facility] 00:00:00 [facility] Hep B, Adol or Pedi 1993 Completed [facility] Dosage 00:00:00 [facility] HEP B, Adult Dosage 1993 Completed [facility] 00:00:00 [facility] Hep B, Adol or Pedi 1993 Completed [facility] Dosage 00:00:00 [facility] HEP B, Adult Dosage 1993 Completed [facility] 00:00:00 [facility] Hep B, Adol or Pedi 1993 Completed [facility] Dosage 00:00:00 [facility] HEP B, Adult Dosage 1993 Completed [facility] 00:00:00 [facility] Hep B, Adol or Pedi 1993 Completed [facility] Dosage 00:00:00 [facility] HEP B, Adult Dosage 1993 Completed [facility] 00:00:00 [facility] Hep B, Adol or Pedi 1993 Completed [facility] Dosage 00:00:00 [facility] HEP B, Adult Dosage 1993 Completed [facility] 00:00:00 [facility] Hep B, Adol or Pedi 1993 Completed [facility] Dosage 00:00:00 [facility] HEP B, Adult Dosage 1993 Completed [facility] 00:00:00 [facility] Hep B, Adol or Pedi 1993 Completed [facility] Dosage 00:00:00 [facility] HEP B, Adult Dosage 1993 Completed [facility] 00:00:00 [facility] Hep B, Adol or Pedi 1993 Completed [facility] Dosage 00:00:00 [facility] HEP B, Adult Dosage 1993 Completed [facility] 00:00:00 [facility] Hep B, Adol or Pedi 1993 Completed [facility] Dosage 00:00:00 [facility] HEP B, Adult Dosage 1993 Completed [facility] 00:00:00 [facility] Hep B, Adol or Pedi 1993 Completed [facility] Dosage 00:00:00 [facility] HEP B, Adult Dosage 1993 Completed [facility] 00:00:00 [facility] Hep B, Adol or Pedi 1993 Completed [facility] Dosage 00:00:00 [facility] HEP B, Adult Dosage 1993 Completed [facility] 00:00:00 [facility] Hep B, Adol or Pedi 1993 Completed [facility] Dosage 00:00:00 [facility] HEP B, Adult Dosage 1993 Completed [facility] 00:00:00 [facility] Hep B, Adol or Pedi 1993 Completed [facility] Dosage 00:00:00 [facility] HEP B, Adult Dosage 1993 Completed [facility] 00:00:00 [facility] Hep B, Adol or Pedi 1993 Completed [facility] Dosage 00:00:00 [facility] HEP B, Adult Dosage 1993 Completed [facility] 00:00:00 [facility] Hep B, Adol or Pedi 1993 Completed [facility] Dosage 00:00:00 [facility] HEP B, Adult Dosage 1993 Completed [facility] 00:00:00 [facility] Hep B, Adol or Pedi 1993 Completed [facility] Dosage 00:00:00 [facility] HEP B, Adult Dosage 1993 Completed [facility] 00:00:00 [facility] Hep B, Adol or Pedi 1993 Completed [facility] Dosage 00:00:00 [facility] HEP B, Adult Dosage 1993 Completed [facility] 00:00:00 [facility] Hep B, Adol or Pedi 1993 Completed [facility] Dosage 00:00:00 [facility] TDAP Unknown Completed [facility] Influenza Virus Unknown Completed [facility] IM 3[facility] TD[facility] NOS Unknown Completed [facility] DTAP Unknown [facility]pleted [facility] DTP Unknown [facility]pleted [facility] DTP Unknown [facility] [facility] DTP Unknown Completed [facility] HEPATITIS A Unknown [facility]pleted [facility] HEPATITIS A Unknown Completed [facility] HEP B, Adult Dosage Unknown Completed Unive [facility] HEP B, Adult Dosage Unknown Completed Unive rsity [facility] HEP B, Adult Dosage Unknown Completed Unive rsity [facility] Heamophilus Unknown Completed [facility] Influenza [facility] Heamophilus Unknown Completed [facility] Influenza [facility] Heamophilus Unknown [facility]pleted [facility] Influenza [facility] Heamophilus Unknown Completed [facility] Influenza [facility] HPV Unknown Completed [facility] HPV Unknown Completed [facility] HPV Unknown [facility]pleted [facility] Influenza Virus Unknown Completed [facility] Vaccine [facility] IPV Unknown Completed [facility] Meningococcal Unknown Completed [facility] (groups A, C, Y and Branc h W-135) conjugate vaccine (MCV4P) MMR Unknown Completed [facility] MMR Unknown Completed [facility] OPV Unknown Completed [facility] OPV Unknown Completed [facility] OPV Unknown [facility]pleted [facility] TDAP Unknown Completed [facility] Chickenpox Disease Unknown Completed Univer [facility] Hep B, Adol or Pedi Unknown Completed Unive rsity of Dosage [facility] Hep B, Adol or Pedi Unknown Completed Unive rsity of Dosage [facility] Hep B, Adol or Pedi Unknown Completed [facility]ive rsity of Dosage [facility] Influenza Virus Unknown Completed [facility] Vaccine (3+ yrs) [facility] Polio (IPV/OPV) Unknown Completed [facility] Polio (IPV/OPV) Unknown Completed [facility] Polio (IPV/OPV) Unknown Completed [facility] TDAP Unknown Completed [facility] TDAP Unknown Completed [facility] Influenza Virus Unknown Completed [facility] y of Vaccine Quad IM 3+ [facility] Y[facility] [place] TD, NOS Unknown Completed [facility] DTAP Unknown Completed [facility] DTP Unknown Completed [facility] DTP Unknown [facility]pleted [facility] DTP Unknown [facility]pleted [facility] HEPATITIS A Unknown Completed [facility] HEPATITIS A Unknown Completed [facility] HEP B[facility] Adult Dosage Unknown Completed [facility] HEP B, Adult Dosage Unknown [facility], [facility] Dosage Unknown Completed [facility] Heamophilus Unknown Completed [facility] Influenza B [facility] Heamophilus Unknown Completed [facility] Influenza B [facility] Heamophilus Unknown Completed [facility] Influenza B [facility] Heamophilus Unknown [facility]pleted [facility] Influenza B [facility] HPV Unknown Completed [facility] HPV Unknown Completed [facility] HPV Unknown [facility]pleted [facility] Influenza Virus Unknown Completed [facility] Vaccine [facility] IPV Unknown Completed [facility] Meningococcal Unknown Completed [facility] (groups A, C, Y and Branc h W-135) conjugate vaccine (MCV4P) MMR Unknown Completed [facility] MMR Unknown Completed [facility] OPV Unknown Completed [facility] OPV Unknown Completed [facility] OPV Unknown [facility]pleted [facility] TDAP Unknown Completed [facility] Chickenpox Disease Unknown Completed [facility]iver [facility] Hep B, Adol or Pedi Unknown Completed [facility]ive [facility] of Dosage [facility] Hep B, Adol or Pedi Unknown Completed Unive rs[facility] of Dosage [facility] Hep B, Adol or Pedi Unknown Completed [facility]ive [facility] of Dosage [facility] Influenza Virus Unknown Completed [facility] Vaccine (3+ yrs) [facility] Polio (IPV/OPV) Unknown Completed [facility] Polio (IPV/OPV) Unknown Completed [facility] Polio (IPV/OPV) Unknown Completed [facility] TDAP Unknown Completed [facility] TDAP Unknown Completed [facility] Influenza Virus Unknown Completed [facility] of Vaccine Quad IM 3+ [facility] TD, NOS Unknown Completed [facility] DTAP Unknown Completed [facility] DTP Unknown Completed [facility] DTP Unknown [facility]pleted [facility] DTP Unknown [facility]pleted [facility] HEPATITIS A Unknown Completed [facility] HEPATITIS A Unknown Completed [facility] HEP B, Adult Dosage Unknown Completed [facility] HEP B, Adult Dosage Unknown Completed [facility] HEP B, Adult Dosage Unknown Completed [facility] Heamophilus Unknown Completed [facility] Influenza B [facility] Heamophilus Unknown Completed [facility] Influenza B [facility] Heamophilus Unknown Completed [facility] Influenza B [facility] Heamophilus Unknown Completed [facility] Influenza [facility] HPV Unknown [facility]pleted [facility] HPV Unknown Completed [facility] HPV Unknown Completed [facility] Influenza Virus Unknown Completed [facility] Vaccine [facility] IPV Unknown Completed [facility] Meningococcal Unknown Completed [facility] (groups A, C, Y and Branc h W-135) conjugate vaccine (MCV4P) MMR Unknown Completed [facility] MMR Unknown Completed [facility] OPV Unknown Completed [facility] OPV Unknown [facility]pleted [facility] OPV Unknown [facility]pleted [facility] TDAP Unknown Completed [facility] Chickenpox Disease Unknown [facility], Adol or Pedi Unknown Completed [facility]ive [facility] of Dosage [facility] Hep B, Adol or Pedi Unknown Completed Unive [facility] of Dosage [facility] Hep B, Adol or Pedi Unknown Completed [facility]ive [facility] of Dosage [facility] Influenza Virus Unknown Completed [facility] Vaccine (3+ yrs) [facility] Polio (IPV/OPV) Unknown Completed [facility] Polio (IPV/OPV) Unknown Completed [facility] Polio (IPV/OPV) Unknown Completed [facility] TDAP Unknown Completed [facility] TDAP Unknown Completed [facility] Influenza Virus Unknown Completed [facility] of Vaccine Quad IM 3+ [facility] YRS [place] TD, NOS Unknown Completed [facility] DTAP Unknown Completed [facility] DTP Unknown Completed [facility] DTP Unknown [facility]pleted [facility] DTP Unknown [facility]pleted [facility] HEPATITIS A Unknown Completed [facility] HEPATITIS A Unknown Completed [facility] HEP B, Adult Dosage Unknown Completed [facility]ive [facility] HEP B, Adult Dosage Unknown [facility]P B, Adult Dosage Unknown Completed [facility]ive [facility] Heamophilus Unknown Completed [facility] Influenza B [facility] Heamophilus Unknown Completed [facility] Influenza B [facility] Heamophilus Unknown Completed [facility] Influenza B [facility] Heamophilus Unknown Completed [facility] Influenza [facility] HPV Unknown [facility]pleted [facility] HPV Unknown Completed [facility] HPV Unknown Completed [facility] Influenza Virus Unknown Completed [facility] Vaccine [facility] IPV Unknown Completed [facility] Meningococcal Unknown Completed [facility] (groups A, C, Y and Branc h W-135) conjugate vaccine (MCV4P) MMR Unknown Completed [facility] MMR Unknown Completed [facility] OPV Unknown Completed [facility] OPV Unknown Completed [facility] OPV Unknown [facility]pleted [facility] TDAP Unknown Completed [facility] Chickenpox Disease Unknown Completed [facility]iver [facility] Hep B, Adol or Pedi Unknown Completed Unive rsity of Dosage [facility] Hep B, Adol or Pedi Unknown Completed Unive rsity of Dosage [facility] Hep B, Adol or Pedi Unknown Completed Unive rs[facility] of Dosage [facility] Influenza Virus Unknown Completed [facility] Vaccine (3+ yrs) [facility] Polio (IPV/OPV) Unknown Completed [facility] Polio (IPV/OPV) Unknown Completed [facility] Polio (IPV/OPV) Unknown Completed [facility] TDAP Unknown Completed [facility] TDAP Unknown Completed [facility] Influenza Virus Unknown Completed [facility] of Vaccine Quad IM 3+ [facility] TD, NOS Unknown Completed [facility] DTAP Unknown Completed [facility] DTP Unknown Completed [facility] DTP Unknown [facility]pleted [facility] DTP Unknown [facility]pleted [facility] HEPATITIS A Unknown Completed [facility] HEPATITIS A Unknown Completed [facility] HEP B, Adult Dosage Unknown Completed Unive [facility] HEP B, Adult Dosage Unknown Completed Unive [facility] HEP B, Adult Dosage Unknown Completed Unive [facility] Heamophilus Unknown Completed [facility] Influenza [facility] Heamophilus Unknown Completed [facility] Heamophilus Unknown Completed [facility] Influenza B [facility] Heamophilus Unknown Completed [facility] HPV Unknown Completed [facility] HPV Unknown Completed [facility] HPV Unknown [facility]pleted [facility] Influenza Virus Unknown Completed [facility] Vaccine [facility] IPV Unknown Completed [facility] Meningococcal Unknown Completed [facility] (groups A, C, Y and Branc h W-135) conjugate vaccine (MCV4P) MMR Unknown Completed [facility] MMR Unknown Completed [facility] OPV Unknown Completed [facility] OPV Unknown Completed [facility] OPV Unknown [facility]pleted [facility] TDAP Unknown Completed [facility] Chickenpox Disease Unknown Completed [facility]iver [facility] Hep B, Adol or Pedi Unknown Completed Unive rsity of Dosage [facility] Hep B, Adol or Pedi Unknown Completed Unive rsity of Dosage [facility] Hep B, Adol or Pedi Unknown Completed Unive rsity of Dosage [facility] Influenza Virus Unknown Completed [facility] of Vaccine (3+ yrs) [facility] Polio (IPV/OPV) Unknown Completed [facility] Polio (IPV/OPV) Unknown Completed [facility] Polio (IPV/OPV) Unknown Completed [facility] TDAP Unknown Completed [facility] TDAP Unknown Completed [facility] Influenza Virus Unknown Completed [facility] of Vaccine Quad IM 3+ [facility] YRS [place] TD, NOS Unknown Completed [facility] DTAP Unknown Completed [facility] DTP Unknown Completed [facility] DTP Unknown [facility]pleted [facility] DTP Unknown [facility]pleted [facility] HEPATITIS A Unknown Completed [facility] HEPATITIS A Unknown Completed [facility] HEP B, Adult Dosage Unknown Com[facility]P B, Adult Dosage Unknown Completed [facility] HEP B, Adult Dosage Unknown Completed [facility] Heamophilus Unknown Completed [facility] Heamophilus Unknown Completed [facility] Influenza [facility] Heamophilus Unknown [facility]pleted [facility] Influenza B [facility] Heamophilus Unknown Completed [facility] Influenza B [facility] HPV Unknown Completed [facility] HPV Unknown Completed [facility] HPV Unknown [facility]pleted [facility] Influenza Virus Unknown Completed [facility] Vaccine [facility] IPV Unknown Completed [facility] Meningococcal Unknown Completed [facility] (groups A, C, Y and Branc h W-135) conjugate vaccine (MCV4P) MMR Unknown Completed [facility] MMR Unknown Completed [facility] OPV Unknown Completed [facility] OPV Unknown Completed [facility] OPV Unknown [facility]pleted [facility] TDAP Unknown Completed [facility] Chickenpox Disease Unknown Completed Univer [facility] Hep B, Adol or Pedi Unknown Completed Unive rsity of Dosage [facility] Hep B, Adol or Pedi Unknown Completed Unive rsity of Dosage [facility] Hep B, Adol or Pedi Unknown Completed Unive rsity of Dosage [facility] Influenza Virus Unknown Completed [facility] y of Vaccine (3+ yrs) [facility] Polio (IPV/OPV) Unknown Completed [facility] Polio (IPV/OPV) Unknown Completed [facility] Polio (IPV/OPV) [facility] TD[facility] Unknown Completed [facility] TDAP Unknown Completed [facility] Influenza Virus Unknown Completed [facility] of Vaccine Quad IM 3+ [facility] YRS [place] TD, NOS Unknown Completed [facility] DTAP Unknown Completed [facility] DTP Unknown Completed [facility] DTP Unknown [facility]pleted [facility] DTP Unknown [facility]pleted [facility] HEPATITIS A Unknown Completed [facility] HEPATITIS A Unknown Completed [facility] HEP B, Adult Dosage Unknown Completed Unive [facility] HEP B, Adult Dosage Unknown Com[facility]P B, Adult Dosage Unknown Completed Unive [facility] Heamophilus Unknown Completed [facility] Influenza [facility] Heamophilus Unknown Completed [facility] Influenza [facility] Heamophilus Unknown [facility]pleted [facility] Influenza [facility] Heamophilus Unknown [facility]pleted [facility] Influenza [facility] HPV Unknown Completed [facility] HPV Unknown Completed [facility] HPV Unknown [facility]pleted [facility] Influenza Virus Unknown Completed [facility] Vaccine [facility] IPV Unknown Completed [facility] Meningococcal Unknown Completed [facility] (groups A, C, Y and Branc h W-135) conjugate vaccine (MCV4P) MMR Unknown Completed [facility] MMR Unknown Completed [facility] OPV Unknown Completed [facility] OPV Unknown Completed [facility] OPV Unknown [facility]pleted [facility] TDAP Unknown Completed [facility] Chickenpox Disease Unknown Completed Univer [facility] Hep B, Adol or Pedi Unknown Completed Unive rsity of Dosage [facility] Hep B, Adol or Pedi Unknown Completed Unive rsity of Dosage [facility] Hep B, Adol or Pedi Unknown Completed Unive rsity of Dosage [facility] Influenza Virus Unknown Completed [facility] y of Vaccine (3+ yrs) [facility] Polio (IPV/OPV) Unknown Completed [facility] Polio (IPV/OPV) Unknown Completed [facility] Polio (IPV/OPV) Unknown Completed [facility] TDAP Unknown Completed [facility] TDAP Unknown Completed [facility] Influenza Virus Unknown Completed [facility] of Vaccine Quad IM 3+ [facility] TD, NOS Unknown Completed [facility] DTAP Unknown Completed [facility] DTP Unknown Completed [facility] DTP Unknown [facility]pleted [facility] DTP Unknown [facility]pleted [facility] HEPATITIS A Unknown Completed [facility] HEPATITIS A Unknown Completed [facility] HEP B, Adult Dosage Unknown Completed [facility]ive [facility] HEP B, Adult Dosage Unknown Completed [facility] HEP B, Adult Dosage Unknown Completed [facility]ive [facility] Heamophilus Unknown Completed [facility] Heamophilus Unknown Completed [facility] Heamophilus Unknown Completed [facility] Influenza [facility] Heamophilus Unknown Completed [facility] HPV Unknown Completed [facility] HPV Unknown Completed [facility] HPV Unknown Completed [facility] Influenza Virus Unknown Completed [facility] Vaccine [facility] IPV Unknown Completed [facility] Meningococcal Unknown Completed [facility] adam (groups A, C, Y and Branc h W-135) conjugate vaccine (MCV4P) MMR Unknown Completed [facility] MMR Unknown Completed [facility] OPV Unknown Completed [facility] OPV Unknown Completed [facility] OPV Unknown [facility]pleted [facility] TDAP Unknown Completed [facility] Chickenpox Disease Unknown [facility] Adol or Pedi Unknown Completed Unive [facility]ity of Dosage [facility] Hep B, Adol or Pedi Unknown Completed Unive rsity of Dosage [facility] Hep B, Adol or Pedi Unknown Completed Unive rsity of Dosage [facility] Influenza Virus Unknown Completed [facility] y of Vaccine (3+ yrs) [facility] Polio (IPV/OPV) Unknown Completed [facility] Polio (IPV/OPV) Unknown Completed [facility] Polio (IPV/OPV) Unknown Completed [facility] TDAP Unknown Completed [facility] Influenza Virus Unknown Completed [facility] y of Vaccine Quad IM 3+ [facility] YRS [place] TD, NOS Unknown Completed [facility] DTAP Unknown Completed [facility] DTP Unknown Completed [facility] DTP Unknown [facility]pleted [facility] DTP Unknown [facility]pleted [facility] HEPATITIS A Unknown Completed [facility] HEPATITIS A Unknown Completed [facility] HEP B, Adult Dosage Unknown Completed Unive [facility] HEP B, Adult Dosage Unknown Completed [facility]ive [facility] HEP B, Adult Dosage Unknown Completed Unive rsity [facility] Heamophilus Unknown Completed [facility] Heamophilus Unknown Completed [facility] Heamophilus Unknown Completed [facility] Influenza [facility] Heamophilus Unknown Completed [facility] HPV Unknown Completed [facility] HPV Unknown Completed [facility] HPV Unknown [facility]pleted [facility] Influenza Virus Unknown Completed [facility] Vaccine [facility] IPV Unknown Completed [facility] Meningococcal Unknown Completed [facility] (groups A, C, Y and Branc h W-135) conjugate vaccine (MCV4P) MMR Unknown Completed [facility] MMR Unknown Completed [facility] OPV Unknown Completed [facility] OPV Unknown Completed [facility] OPV Unknown Completed [facility] TDAP Unknown Completed [facility] Chickenpox Disease Unknown Completed Univer [facility]ity of [facility] Hep B, Adol or Pedi Unknown Completed Unive rsity of Dosage [facility] Hep B, Adol or Pedi Unknown Completed Unive rsity of Dosage [facility] Hep B, Adol or Pedi Unknown Completed [facility]ive rsity of Dosage [facility] Influenza Virus Unknown Completed [facility] Vaccine (3+ yrs) [facility] dical [place] Polio (IPV/OPV) Unknown Completed [facility] Polio (IPV/OPV[facility] Unknown Completed [facility] Polio (IPV/OPV) Unknown Completed [facility] TDAP Unknown Completed [facility] Influenza Virus Unknown Completed [facility] y of Vaccine Quad IM 3+ [facility] YRS [place] TD, NOS Unknown Completed [facility] DTAP Unknown Completed [facility] DTP Unknown Completed [facility] DTP Unknown [facility]pleted [facility] DTP Unknown [facility]pleted [facility] HEPATITIS A Unknown Completed [facility] HEPATITIS A Unknown Completed [facility] HEP B, Adult Dosage Unknown Completed [facility]ive [facility] HEP B, Adult Dosage Unknown Completed [facility] HEP B, Adult Dosage Unknown Completed [facility] Heamophilus Unknown Completed [facility] Influenza [facility] Heamophilus Unknown Completed [facility] Influenza [facility] Heamophilus Unknown Completed [facility] Influenza [facility] Heamophilus Unknown Completed [facility] Influenza [facility] HPV Unknown Completed [facility] HPV Unknown Completed [facility] HPV Unknown Completed [facility] Influenza Virus Unknown Completed [facility] Vaccine [facility] IPV Unknown Completed [facility] Meningococcal Unknown Completed [facility] (groups A, C, Y and Branc h W-135) conjugate vaccine (MCV4P) MMR Unknown Completed [facility] MMR Unknown Completed [facility] OPV Unknown Completed [facility] OPV Unknown Completed [facility] OPV Unknown Completed [facility] TDAP Unknown Completed [facility] Chickenpox Disease Unknown Completed [facility]iver [facility] Hep B, Adol or Pedi Unknown Completed Unive rsity of Dosage [facility] Hep B, Adol or Pedi Unknown Completed Unive rsity of Dosage [facility] Hep B, Adol or Pedi Unknown Completed Unive rsity of Dosage [facility] Influenza Virus Unknown Completed [facility] Vaccine (3+ yrs) [facility] d[facility] [place] Polio (IPV/OPV) Unknown Completed [facility] Polio (IPV/OPV) Unknown Completed [facility] Polio (IPV/OPV) Unknown Completed [facility] TDAP Unknown Completed [facility] Influenza Virus Unknown Completed [facility] y of Vaccine Quad IM 3+ [facility] YRS [place] TD, NOS Unknown Completed [facility] DTAP Unknown Completed [facility] DTP Unknown Completed [facility] DTP Unknown [facility]pleted [facility] DTP Unknown [facility]pleted [facility] HEPATITIS A Unknown Completed [facility] HEPATITIS A Unknown Completed [facility] HEP B, Adult Dosage Unknown Completed [facility] HEP B, Adult Dosage Unknown Com[facility]P B, Adult Dosage Unknown Completed [facility] Heamophilus Unknown Completed [facility] Influenza [facility] Heamophilus Unknown Completed [facility] Influenza [facility] Heamophilus Unknown Completed [facility] Influenza [facility] Heamophilus Unknown [facility]pleted [facility] HPV Unknown Completed [facility] HPV Unknown Completed [facility] HPV Unknown Completed [facility] Influenza Virus Unknown Completed [facility] Vaccine [facility] IPV Unknown Completed [facility] Meningococcal Unknown Completed [facility] (groups A, C, Y and Branc h W-135) conjugate vaccine (MCV4P) MMR Unknown Completed [facility] MMR Unknown Completed [facility] OPV Unknown Completed [facility] OPV Unknown Completed [facility] OPV Unknown Completed [facility] TDAP Unknown Completed [facility] Chickenpox Disease Unknown Completed Univer [facility] Hep B, Adol or Pedi Unknown Completed Unive rsity of Dosage [facility] Hep B, Adol or Pedi Unknown Completed Unive rsity of Dosage [facility] Hep B, Adol or Pedi Unknown Completed Unive [facility]ity of Dosage [facility] Influenza Virus Unknown Completed [facility] Vaccine (3+ yrs) [facility] d[facility] [place] Polio (IPV/OPV) Unknown Completed [facility] Polio (IPV/OPV) Unknown Completed [facility] Polio (IPV/OPV) Unknown Completed [facility] TDAP Unknown Completed [facility] Influenza Virus Unknown Completed [facility] y of Vaccine Quad IM 3+ [facility] Y[place] TD, NOS Unknown Completed [facility] DTAP Unknown Completed [facility] DTP Unknown Completed [facility] DTP Unknown [facility]pleted [facility] DTP Unknown [facility]pleted [facility] HEPATITIS A Unknown Completed [facility] HEPATITIS A Unknown Completed [facility] HEP B, Adult Dosage Unknown Completed [facility]P B, Adult Dosage Unknown Completed [facility] HEP B, Adult Dosage Unknown Completed [facility] Heamophilus Unknown Completed [facility] Influenza [facility] Heamophilus Unknown Completed [facility] Influenza [facility] Heamophilus Unknown Completed [facility] Influenza [facility] Heamophilus Unknown Completed [facility] HPV Unknown Completed [facility] HPV Unknown Completed [facility] HPV Unknown [facility]pleted [facility] Influenza Virus Unknown Completed [facility] Vaccine [facility] IPV Unknown Completed [facility] Meningococcal Unknown Completed [facility] (groups A, C, Y and Branc h W-135) conjugate vaccine (MCV4P) MMR Unknown Completed [facility] MMR Unknown Completed [facility] OPV Unknown Completed [facility] OPV Unknown Completed [facility] OPV Unknown Completed [facility] TDAP Unknown Completed [facility] Chickenpox Disease Unknown Completed Univer [facility] Hep B, Adol or Pedi Unknown Completed Unive rsity of Dosage [facility] Hep B, Adol or Pedi Unknown Completed Unive rsity of Dosage [facility] Hep B, Adol or Pedi Unknown Completed Unive rsity of Dosage [facility] Influenza Virus Unknown Completed [facility] y of Vaccine (3+ yrs) [facility] d[facility] [place] Polio (IPV/OPV) Unknown Completed [facility] Polio (IPV/OPV) Unknown Completed [facility] Polio (IPV/OPV) Unknown Completed [facility] TDAP Unknown Completed [facility] Influenza Virus Unknown Completed [facility] y of Vaccine Quad IM 3+ [facility] Y[facility] [place] TD, NOS Unknown Completed [facility] DTAP Unknown Completed [facility] DTP Unknown Completed [facility] DTP Unknown Completed [facility] DTP Unknown Completed [facility] HEPATITIS A Unknown Completed [facility] HEPATITIS A Unknown Completed [facility] HEP B[facility] Adult Dosage Unknown Completed [facility] HEP B, Adult Dosage Unknown Completed [facility] HEP B, Adult Dosage Unknown Completed [facility] Heamophil[facility] Unknown Completed [facility] Influenza [facility] Heamophilus Unknown Completed [facility] Influenza [facility] Heamophilus Unknown [facility]pleted [facility] Influenza [facility] Heamophilus Unknown [facility]pleted [facility] HPV Unknown Completed [facility] HPV Unknown Completed [facility] HPV Unknown [facility]pleted [facility] Influenza Virus Unknown Completed [facility] Vaccine [facility] IPV Unknown Completed [facility] Meningococcal Unknown Completed [facility] (groups A, C, Y and Branc h W-135) conjugate vaccine (MCV4P) MMR Unknown Completed [facility] MMR Unknown Completed [facility] OPV Unknown Completed [facility] OPV Unknown Completed [facility] OPV Unknown [facility]pleted [facility] TDAP Unknown Completed [facility] Chickenpox Disease Unknown Completed Univer [facility] Hep B, Adol or Pedi Unknown Completed Unive rsity of Dosage [facility] Hep B, Adol or Pedi Unknown Completed Unive rsity of Dosage [facility] Hep B, Adol or Pedi Unknown Completed Unive rsity of Dosage [facility] Influenza Virus Unknown Completed [facility] y of Vaccine (3+ yrs) [facility] Polio (IPV/OPV) Unknown Completed [facility] Polio (IPV/OPV) Unknown Completed [facility] Polio (IPV/OPV) Unknown Completed [facility] TDAP Unknown Completed [facility] Influenza Virus Unknown Completed [facility] y of Vaccine Quad IM 3+ [facility] Y[facility] [place] TD, NOS Unknown Completed [facility] DTAP Unknown Completed [facility] DTP Unknown Completed [facility] DTP Unknown Completed [facility] DTP Unknown Completed [facility] HEPATITIS A Unknown Completed [facility] HEPATITIS A Unknown Completed [facility] HEP B, Adult Dosage Unknown Completed [facility]ive [facility] HEP B, Adult Dosage Unknown Completed [facility] HEP B, Adult Dosage Unknown Completed [facility] He[facility] Unknown Completed [facility] Influenza B [facility] Heamophilus Unknown Completed [facility] Influenza B [facility] Heamophilus Unknown Completed [facility] Influenza B [facility] Heamophilus Unknown Completed [facility] HPV Unknown Completed [facility] HPV Unknown Completed [facility] HPV Unknown Completed [facility] Influenza Virus Unknown Completed [facility] Vaccine [facility] IPV Unknown Completed [facility] Meningococcal Unknown Completed [facility] (groups A, C, Y and Branc h W-135) conjugate vaccine (MCV4P) MMR Unknown Completed [facility] MMR Unknown Completed [facility] OPV Unknown Completed [facility] OPV Unknown Completed [facility] OPV Unknown [facility]pleted [facility] TDAP Unknown Completed [facility] Chickenpox Disease Unknown Completed Univer [facility] Hep B, Adol or Pedi Unknown Completed Unive rsity of Dosage [facility] Hep B, Adol or Pedi Unknown Completed Unive rsity of Dosage [facility] Hep B, Adol or Pedi Unknown Completed Unive rsity of Dosage [facility] Influenza Virus Unknown Completed [facility]3+ yrs) [facility] ([facility]OPV) Unknown Completed [facility] Polio (IPV/OPV) Unknown Completed [facility] Polio (IPV/OPV) Unknown Completed [facility] TDAP Unknown Completed [facility] Influenza Virus Unknown Completed [facility] y of Vaccine Quad IM 3+ [facility] YRS [place] TD, NOS Unknown Completed [facility] DTAP Unknown Completed [facility] DTP Unknown Completed [facility] DTP Unknown [facility]pleted [facility] DTP Unknown [facility]pleted [facility] HEPATITIS A Unknown Completed [facility] HEPATITIS A Unknown Completed [facility] HEP B, Adult Dosage Unknown Completed [facility]ive [facility] HEP B, Adult Dosage Unknown Completed [facility] HEP B, Adult Dosage Unknown Completed [facility] Heamophil[facility] Unknown Completed [facility] Influenza B [facility] Heamophilus Unknown Completed [facility] Influenza B [facility] Heamophilus Unknown Completed [facility] Influenza B [facility] Heamophilus Unknown Completed [facility] HPV Unknown Completed [facility] HPV Unknown Completed [facility] HPV Unknown Completed [facility] Influenza Virus Unknown Completed [facility] y [facility] Vaccine [facility] IPV Unknown Completed [facility] Meningococcal Unknown Completed [facility] (groups A, C, Y and Branc h W-135) conjugate vaccine (MCV4P) MMR Unknown Completed [facility] MMR Unknown Completed [facility] OPV Unknown Completed [facility] OPV Unknown Completed [facility] OPV Unknown [facility]pleted [facility] TDAP Unknown Completed [facility] Chickenpox Disease Unknown Completed Univer [facility]ity [facility] Hep B, Adol or Pedi Unknown Completed Unive rsity of Dosage [facility] Hep B, Adol or Pedi Unknown Completed Unive rsity of Dosage [facility] Hep B, Adol or Pedi Unknown Completed Unive rsity of Dosage [facility] Influenza Virus Unknown Completed [facility] y of Vaccine (3+ yrs) [facility] Polio (IPV/OPV) Unknown Completed [facility] Polio (IPV/OPV) Unknown Completed [facility] Polio (IPV/OPV) Unknown Completed [facility] TDAP Unknown Completed [facility] Influenza Virus Unknown Completed [facility] y of Vaccine Quad IM 3+ [facility] TD, NOS Unknown Completed [facility] DTAP Unknown Completed [facility] DTP Unknown Completed [facility] DTP Unknown [facility]pleted [facility] DTP Unknown [facility]pleted [facility] HEPATITIS A Unknown Completed [facility] HEPATITIS A Unknown Completed [facility] HEP B, Adult Dosage Unknown Completed [facility]ive [facility] HEP B, Adult Dosage Unknown Completed [facility]ive [facility] HEP B, Adult Dosage Unknown Completed [facility] He[facility] Unknown Completed [facility] Influenza B [facility] Heamophilus Unknown Completed [facility] Influenza B [facility] Heamophilus Unknown Completed [facility] B [facility] Heamophilus Unknown Completed [facility] HPV Unknown Completed [facility] HPV Unknown Completed [facility] HPV Unknown Completed [facility] Influenza Virus Unknown Completed [facility] y [facility] Vaccine [facility] IPV Unknown Completed [facility] Meningococcal Unknown Completed [facility] (groups A, C, Y and Branc h W-135) conjugate vaccine (MCV4P) MMR Unknown Completed [facility] MMR Unknown Completed [facility] OPV Unknown Completed [facility] OPV Unknown Completed [facility] OPV Unknown Completed [facility] TDAP Unknown Completed [facility] Chickenpox Disease Unknown Completed Univer [facility] Hep B, Adol or Pedi Unknown Completed Unive rsity of Dosage [facility] Hep B, Adol or Pedi Unknown Completed Unive rsity of Dosage [facility] Hep B, Adol or Pedi Unknown Completed Unive rsity of Dosage [facility] Influenza Virus Unknown Completed [facility] y of Vaccine (3+ yrs) [facility] Polio (IPV/OPV) Unknown Completed [facility] Polio (IPV/OPV) Unknown Completed [facility] Polio (IPV[facility]OPV) [facility] TDAP Unknown Completed [facility] Influenza Virus Unknown Completed [facility] y of Vaccine Quad IM 3+ [facility] TD[facility] NOS Unknown Completed [facility] DTAP Unknown Completed [facility] DTP Unknown Completed [facility] DTP Unknown [facility]pleted [facility] DTP Unknown [facility]pleted [facility] HEPATITIS A Unknown Completed [facility] HEPATITIS A Unknown Completed [facility] HEP B, Adult Dosage Unknown Completed [facility] HEP B, Adult Dosage Unknown Completed [facility] HEP B, Adult Dosage Unknown Completed [facility] Heamophilus Unknown Completed [facility] Heamophilus Unknown Completed [facility] Heamophilus Unknown Completed [facility] Heamophilus Unknown Completed [facility] HPV Unknown Completed [facility] HPV Unknown Completed [facility] HPV Unknown Completed [facility] Influenza Virus Unknown Completed [facility] IPV Unknown Completed [facility] Meningococcal Unknown Completed [facility] (groups A, C, Y and Branc h W-135) conjugate vaccine (MCV4P) MMR Unknown Completed [facility] MMR Unknown Completed [facility] OPV Unknown Completed [facility] OPV Unknown Completed [facility] OPV Unknown Completed [facility] TDAP Unknown Completed [facility] Chickenpox Disease Unknown Completed [facility] Hep B, Adol or Pedi Unknown Completed Unive rsity of Dosage [facility] Hep B, Adol or Pedi Unknown Completed Unive rsity of Dosage [facility] Hep B, Adol or Pedi Unknown Completed Unive rsity of Dosage [facility] Influenza Virus Unknown Completed [facility] Vaccine (3+ yrs) [facility] dical [place] Polio (IPV/OPV) Unknown Completed [facility] Polio (IPV/OPV) Unknown Completed [facility] Polio (IPV/OPV) Unknown Completed [facility] TDAP Unknown Completed [facility] Influenza Virus Unknown Completed [facility] Vaccine Quad IM 3+ [facility] YRS [place] TD, NOS Unknown Completed [facility] DTAP Unknown Completed [facility] DTP Unknown Completed [facility] DTP Unknown [facility]pleted [facility] DTP Unknown Completed [facility] HEPATITIS A Unknown Completed [facility] HEPATITIS A Unknown Completed [facility] HEP B, Adult Dosage Unknown [facility]P [facility], Adult Dosage Unknown Completed [facility] HEP B, Adult Dosage Unknown Completed [facility] He[facility] Unknown Completed [facility] Heamophilus Unknown Completed [facility] Heamophilus Unknown Completed [facility] Heamophilus Unknown Completed [facility] HPV Unknown Completed [facility] HPV Unknown Completed [facility] HPV Unknown Completed [facility] Influenza Virus Unknown Completed [facility] IPV Unknown Completed [facility] Meningococcal Unknown Completed [facility] (groups A, C, Y and Branc h W-135) conjugate vaccine (MCV4P) MMR Unknown Completed [facility] MMR Unknown Completed [facility] OPV Unknown Completed [facility] OPV Unknown Completed [facility] OPV Unknown Completed [facility] TDAP Unknown Completed [facility] Chickenpox Disease Unknown Completed Univer sity [facility] Hep B, Adol or Pedi Unknown Completed Unive rsity of Dosage [facility] Hep B, Adol or Pedi Unknown Completed Unive rsity of Dosage [facility] Hep B, Adol or Pedi Unknown Completed [facility]ive rsity of Dosage [facility] Influenza Virus Unknown Completed [facility] Vaccine (3+ yrs) [facility] [place] Polio (IPV/OPV) Unknown Completed [facility] Polio (IPV/OPV) Unknown Completed [facility] Polio (IPV/OPV) Unknown Completed [facility] TDAP Unknown Completed [facility] Influenza Virus Unknown Completed [facility] Vaccine Quad IM 3+ [facility] TD, NOS Unknown Completed [facility] DTAP Unknown Completed [facility] DTP Unknown Completed [facility] DTP Unknown [facility]pleted [facility] DTP Unknown Completed [facility] HEPATITIS A Unknown Completed [facility] HEPATITIS A Unknown Completed [facility] HEP B, Adult Dosage Unknown Completed Unive rsity [facility] HEP B, Adult Dosage Unknown Completed Unive rsity [facility] HEP B, Adult Dosage Unknown Completed Unive rsity [facility] Heamophilus Unknown Completed [facility] Influenza [facility] Heamophilus Unknown Completed [facility] Influenza [facility] Heamophilus Unknown [facility]pleted [facility] Influenza [facility] Heamophilus Unknown [facility]pleted [facility] HPV Unknown Completed [facility] HPV Unknown Completed [facility] HPV Unknown [facility]pleted [facility] Influenza Virus Unknown Completed [facility] IPV Unknown Completed [facility] Meningococcal Unknown Completed [facility] (groups A, C, Y and Branc h W-135) conjugate vaccine (MCV4P) MMR Unknown Completed [facility] MMR Unknown Completed [facility] OPV Unknown Completed [facility] OPV Unknown Completed [facility] OPV Unknown Completed [facility] TDAP Unknown Completed [facility] Chickenpox Disease Unknown Completed Univer sity [facility] Hep B, Adol or Pedi Unknown Completed Unive rsity of Dosage [facility] Hep B, Adol or Pedi Unknown Completed Unive rsity of Dosage [facility] Hep B, Adol or Pedi Unknown Completed Unive rsity of Dosage [facility] Influenza Virus Unknown Completed [facility] Vaccine (3+ yrs) [facility] Polio (IPV/OPV) Unknown Completed [facility] Polio (IPV/OPV) Unknown Completed [facility] Polio (IPV/OPV) Unknown Completed [facility] TDAP Unknown Completed [facility] Influenza Virus Unknown Completed [facility] Vaccine Quad IM 3+ [facility] Y[facility] [place] TD, NOS Unknown Completed [facility] DTAP Unknown Completed [facility] DTP Unknown Completed [facility] DTP Unknown Completed [facility] DTP Unknown Completed [facility] HEPATITIS A Unknown Completed [facility] HEPATITIS A Unknown Completed [facility] HEP B, Adult Dosage Unknown Completed [facility] HEP B, Adult Dosage Unknown Completed [facility] HEP B, Adult Dosage Unknown Completed [facility] Unknown Completed [facility] Influenza [facility] Heamophilus Unknown Completed [facility] Influenza [facility] Heamophilus Unknown Completed [facility] Heamophilus Unknown Completed [facility] Influenza [facility] HPV Unknown Completed [facility] HPV Unknown Completed [facility] HPV Unknown [facility]pleted [facility] Influenza Virus Unknown Completed [facility] IPV Unknown Completed [facility] Meningococcal Unknown Completed [facility] (groups A, C, Y and Branc h W-135) conjugate vaccine (MCV4P) MMR Unknown Completed [facility] MMR Unknown Completed [facility] OPV Unknown Completed [facility] OPV Unknown Completed [facility] OPV Unknown [facility]pleted [facility] TDAP Unknown Completed [facility] Chickenpox Disease Unknown Completed Univer sity [facility] Hep B, Adol or Pedi Unknown Completed Unive rsity of Dosage [facility] Hep B, Adol or Pedi Unknown Completed Unive rsity of Dosage [facility] Hep B, Adol or Pedi Unknown Completed Unive rsity of Dosage [facility] Influenza Virus Unknown Completed [facility] Vaccine (3+ yrs) [facility] Polio (IPV/OPV) Unknown Completed [facility] Polio (IPV/OPV) Unknown Completed [facility] Polio (IPV/OPV) Unknown Completed [facility] TDAP Unknown Completed [facility] Influenza Virus Unknown Completed [facility] Vaccine Quad IM 3+ [facility] Y[facility] [place] TD, NOS Unknown Completed [facility] DTAP Unknown Completed [facility] DTP Unknown Completed [facility] DTP Unknown Completed [facility] DTP Unknown Completed [facility] HEPATITIS A Unknown Completed [facility] HEPATITIS A Unknown Completed [facility] HEP B, Adult Dosage Unknown Completed Unive rsity [facility] HEP B, Adult Dosage Unknown Completed Unive rsity [facility] HEP B, Adult Dosage Unknown Completed Unive rsity [facility] Heamophilus Unknown Completed [facility] Influenza [facility] Heamophilus Unknown Completed [facility] Heamophilus Unknown Completed [facility] Heamophilus Unknown Completed [facility] HPV Unknown Completed [facility] HPV Unknown Completed [facility] HPV Unknown [facility]pleted [facility] Influenza Virus Unknown Completed [facility] IPV Unknown Completed [facility] Meningococcal Unknown Completed [facility] (groups A, C, Y and Branc h W-135) conjugate vaccine (MCV4P) MMR Unknown Completed [facility] MMR Unknown Completed [facility] OPV Unknown Completed [facility] OPV Unknown Completed [facility] OPV Unknown Completed [facility] TDAP Unknown Completed [facility] Chickenpox Disease Unknown Completed Univer sity of [facility] Hep B, Adol or Pedi Unknown Completed Unive rsity of Dosage [facility] Hep B, Adol or Pedi Unknown Completed Unive rsity of Dosage [facility] Hep B, Adol or Pedi Unknown Completed Unive rsity of Dosage [facility] Influenza Virus Unknown Completed [facility] Vaccine (3+ yrs) [facility] [place] Polio (IPV/OPV) Unknown Completed [facility] Polio (IPV/OPV) Unknown Completed [facility] Polio (IPV/OPV) Unknown Completed [facility] TDAP Unknown Completed [facility] Influenza Virus Unknown Completed [facility] Vaccine Quad IM 3+ [facility] YRS [place] TD, NOS Unknown Completed [facility] DTAP Unknown Completed [facility] DTP Unknown Completed [facility] DTP Unknown Completed [facility] DTP Unknown Completed [facility] HEPATITIS A Unknown Completed [facility] HEPATITIS A Unknown Completed [facility] HEP B, Adult Dosage Unknown Completed [facility] HEP B, Adult Dosage Unknown Completed Unive rsity [facility] HEP B, Adult Dosage Unknown Completed Unive rsity [facility] Heamophilus Unknown Completed [facility] Influenza [facility] Heamophilus Unknown Completed [facility] Influenza [facility] Heamophilus Unknown Completed [facility] Influenza [facility] Heamophilus Unknown [facility]pleted [facility] HPV Unknown Completed [facility] HPV Unknown Completed [facility] HPV Unknown [facility]pleted [facility] Influenza Virus Unknown Completed [facility] IPV Unknown Completed [facility] Meningococcal Unknown Completed [facility] (groups A, C, Y and Branc h W-135) conjugate vaccine (MCV4P) MMR Unknown Completed [facility] MMR Unknown Completed [facility] OPV Unknown Completed [facility] OPV Unknown [facility]pleted [facility] OPV Unknown [facility]pleted [facility] TDAP Unknown Completed [facility] Chickenpox Disease Unknown [facility] Ad[facility] or Pedi Unknown Completed Unive rsity of Dosage [facility] Hep B, Adol or Pedi Unknown Completed Unive rsity of Dosage [facility] Hep B, Adol or Pedi Unknown Completed Unive rsity of Dosage [facility] Influenza Virus Unknown Completed [facility] Vaccine (3+ yrs) [facility] [place] Polio (IPV/OPV) Unknown Completed [facility] Polio (IPV/OPV) Unknown Completed [facility] Polio (IPV/OPV) Unknown Completed [facility] TDAP Unknown Completed [facility] Influenza Virus Unknown Completed [facility] Vaccine Quad IM 3+ [facility] TD, NOS Unknown Completed [facility] DTAP Unknown Completed [facility] DTP Unknown Completed [facility] DTP Unknown [facility]pleted [facility] DTP Unknown Completed [facility] HEPATITIS A Unknown Completed [facility] HEPATITIS A Unknown Completed [facility] HEP B, Adult Dosage Unknown Completed Unive rsity [facility] HEP B, Adult Dosage Unknown Completed [facility] HEP B, Adult Dosage Unknown Completed [facility] Unknown Completed [facility] Influenza B [facility] Heamophilus Unknown Completed [facility] Influenza [facility] Heamophilus Unknown [facility]pleted [facility] Influenza [facility] Heamophilus Unknown [facility]pleted [facility] Influenza B [facility] HPV Unknown Completed [facility] HPV Unknown Completed [facility] HPV Unknown [facility]pleted [facility] Influenza Virus Unknown Completed [facility] Vacc[facility] IPV Unknown Completed [facility] Meningococcal Unknown Completed [facility] (groups A, C, Y and Branc h W-135) conjugate vaccine (MCV4P) MMR Unknown Completed [facility] MMR Unknown Completed [facility] OPV Unknown Completed [facility] OPV Unknown Completed [facility] OPV Unknown Completed [facility] TDAP Unknown Completed [facility] Chickenpox Disease Unknown Completed Univer [facility] Hep B, Adol or Pedi Unknown Completed Unive rsity of Dosage [facility] Hep B, Adol or Pedi Unknown Completed Unive rsity of Dosage [facility] Hep B, Adol or Pedi Unknown Completed Unive rsity of Dosage [facility] Influenza Virus Unknown Completed [facility] Vaccine (3+ yrs) [facility] Polio (IPV/OPV) Unknown Completed [facility] Polio (IPV/OPV) Unknown Completed [facility] Polio (IPV/OPV) Unknown Completed [facility] TDAP Unknown Completed [facility] Influenza Virus Unknown Completed [facility] Vaccine Quad IM 3+ [facility] [place] TD, NOS Unknown Completed [facility] DTAP Unknown Completed [facility] DTP Unknown Completed [facility] DTP Unknown [facility]pleted [facility] DTP Unknown Completed [facility] HEPATITIS A Unknown Completed [facility] HEPATITIS A Unknown Completed [facility] HEP B, Adult Dosage Unknown Completed Unive rsity [facility] HEP B, Adult Dosage Unknown Completed [facility] HEP B, Adult Dosage Unknown Completed Unive rsity [facility] Heamophilus Unknown Completed [facility] Influenza B [facility] Heamophilus Unknown Completed [facility] Influenza B [facility] Heamophilus Unknown Completed [facility] Influenza B [facility] Heamophilus Unknown Completed [facility] Influenza [facility] HPV Unknown Completed [facility] HPV Unknown Completed [facility] HPV Unknown [facility]pleted [facility] Influenza Virus Unknown Completed [facility] Vaccine [facility] IPV Unknown Completed [facility] Meningococcal Unknown Completed [facility] (groups A, C, Y and Branc h W-135) conjugate vaccine (MCV4P) MMR Unknown Completed [facility] MMR Unknown Completed [facility] OPV Unknown Completed [facility] OPV Unknown Completed [facility] OPV Unknown [facility]pleted [facility] TDAP Unknown Completed [facility] Chickenpox Disease Unknown Completed Univer [facility] Hep B, Adol or Pedi Unknown Completed Unive rsity of Dosage [facility] Hep B, Adol or Pedi Unknown Completed Unive rsity of Dosage [facility] Hep B, Adol or Pedi Unknown Completed Unive rsity of Dosage [facility] Influenza Virus Unknown Completed [facility] Vaccine (3+ yrs) [facility] Polio (IPV/OPV) Unknown Completed [facility] Polio (IPV[facility]OP[facility]) [facility] Pol[facility] (IPV/OPV) Unknown Completed [facility] TDAP Unknown Completed [facility] Influenza Virus Unknown Completed [facility] of Vaccine Quad IM 3+ [facility] YRS [place] TD, NOS Unknown Completed [facility] DTAP Unknown Completed [facility] DTP Unknown Completed [facility] DTP Unknown [facility]pleted [facility] DTP Unknown Completed [facility] HEPATITIS A Unknown Completed [facility] HEPATITIS A Unknown Completed [facility] HEP B, Adult Dosage Unknown Completed [facility] HEP B, Adult Dosage Unknown Completed [facility] HEP B, Adult Dosage Unknown Completed [facility] Unknown Completed [facility] Influenza B [facility] Heamophilus Unknown Completed [facility] Influenza B [facility] Heamophilus Unknown Completed [facility] Influenza B [facility] Heamophilus Unknown [facility]pleted [facility] Influenza [facility] HPV Unknown [facility]pleted [facility] HPV Unknown Completed [facility] HPV Unknown Completed [facility] Influenza Virus Unknown Completed [facility] Vaccine [facility] IPV Unknown Completed [facility] Meningococcal Unknown Completed [facility] (groups A, C, Y and Branc h W-135) conjugate vaccine (MCV4P) MMR Unknown Completed [facility] MMR Unknown Completed [facility] OPV Unknown Completed [facility] OPV Unknown [facility]pleted [facility] OPV Unknown [facility]pleted [facility] TDAP Unknown Completed [facility] Chickenpox Disease Unknown Completed Univer sity [facility] Hep B, Adol or Pedi Unknown Completed Unive rsity of Dosage [facility] Hep B, Adol or Pedi Unknown Completed Unive rsity of Dosage [facility] Hep B, Adol or Pedi Unknown Completed Unive rsity of Dosage [facility] Influenza Virus Unknown Completed Universit y of Vaccine (3+ yrs) [facility] Polio (IPV/OPV) Unknown Completed Universit y [facility] Polio (IPV/OPV) Unknown Completed Universit y of [facility] Polio (IPV/OPV) Unknown Completed Universit y [facility] TDAP Unknown Completed [facility] Influenza Virus Unknown Completed Universit y of Vaccine Quad IM 3+ [facility] Y[facility] [place] TD, NOS Unknown Completed [facility] DTAP Unknown Completed [facility] DTP Unknown Completed [facility] DTP Unknown Completed [facility] DTP Unknown Completed [facility] HEPATITIS A Unknown Completed [facility] HEPATITIS A Unknown Completed [facility] HEP B, Adult Dosage Unknown Completed Unive rsity [facility] HEP B, Adult Dosage Unknown Completed Unive rsity [facility] HEP B, Adult Dosage Unknown Completed [facility] Unknown Completed [facility] Influenza B [facility] Heamophilus Unknown Completed [facility] Influenza B [facility] Heamophilus Unknown Completed [facility] Influenza B [facility] Heamophilus Unknown Completed [facility] Influenza B [facility] HPV Unknown Completed [facility] HPV Unknown Completed [facility] HPV Unknown Completed [facility] Influenza Virus Unknown Completed Universit y of Vaccine [facility] IPV Unknown Completed [facility] Meningococcal Unknown Completed University of Polysaccharide [facility] adam (groups A, C, Y and Branc h W-135) conjugate vaccine (MCV4P) MMR Unknown Completed [facility] MMR Unknown Completed [facility] OPV Unknown Completed [facility] OPV Unknown Completed [facility] OPV Unknown Completed [facility] TDAP Unknown Completed [facility] Chickenpox Disease Unknown Completed Univer sity [facility] Hep B, Adol or Pedi Unknown Completed Unive rsity of Dosage [facility] Hep B, Adol or Pedi Unknown Completed Unive rsity of Dosage [facility] Hep B, Adol or Pedi Unknown Completed Unive rsity of Dosage [facility] Influenza Virus Unknown Completed Universit y [facility]3+ yrs) [facility] Polio (IPV/OPV) Unknown Completed Universit y [facility] Polio (IPV/OPV) Unknown Completed Universit y of [facility] Polio (IPV/OPV) Unknown Completed Universit [facility] TDAP Unknown Completed [facility] TDAP Unknown Completed [facility] Influenza Virus Unknown Completed Universit y of Vaccine Quad IM 3+ [facility] Y[facility] [place] TD, NOS Unknown Completed [facility] DTAP Unknown Completed [facility] DTP Unknown Completed [facility] DTP Unknown Completed [facility] DTP Unknown Completed [facility] HEPATITIS A Unknown Completed [facility] HEPATITIS A Unknown Completed [facility] HEP B, Adult Dosage Unknown Completed [facility] HEP B, Adult Dosage Unknown Completed [facility] HEP B, Adult Dosage Unknown Completed [facility] Heamophilus Unknown Completed [facility] Heamophilus Unknown Completed [facility] Influenza [facility] Heamophilus Unknown Completed [facility] Influenza B [facility] Heamophilus Unknown Completed [facility] Influenza B [facility] HPV Unknown Completed [facility] HPV Unknown Completed [facility] HPV Unknown Completed [facility] Influenza Virus Unknown Completed Universit y of Vaccine [facility] IPV Unknown Completed [facility] Meningococcal Unknown Completed [place] Polysaccharide [facility] adam (groups A, C, Y and Branc h W-135) conjugate vaccine (MCV4P) MMR Unknown Completed [facility] MMR Unknown Completed [facility] OPV Unknown Completed [facility] OPV Unknown Completed [facility] OPV Unknown [facility]pleted [facility] TDAP Unknown Completed [facility] Chickenpox Disease Unknown Completed Univer [facility] Hep B, Adol or Pedi Unknown Completed Unive rsity of Dosage [facility] Hep B, Adol or Pedi Unknown Completed Unive rsity of Dosage [facility] Hep B, Adol or Pedi Unknown Completed Unive rsity of Dosage [facility] Influenza Virus Unknown Completed Universit y of Vaccine (3+ yrs) [facility] Polio (IPV/OPV) Unknown Completed Universit y [facility] Polio (IPV/OPV) Unknown Completed Universit [facility] Polio (IPV/OPV) Unknown Completed [facility] TDAP Unknown Completed [facility] TDAP Unknown Completed [facility] Influenza Virus Unknown Completed Universit y of Vaccine Quad IM 3+ [facility] Y[facility] [place] TD, NOS Unknown Completed [facility] DTAP Unknown Completed [facility] DTP Unknown Completed [facility] DTP Unknown Completed [facility] DTP Unknown Completed [facility] HEPATITIS A Unknown Completed [facility] HEPATITIS A Unknown Completed [facility] HEP B, Adult Dosage Unknown Completed [facility] HEP B, Adult Dosage Unknown Completed [facility] HEP B, Adult Dosage Unknown Completed [facility] Heamophilus Unknown Completed [facility] Influenza [facility] Heamophilus Unknown Completed [facility] Influenza [facility] Heamophilus Unknown Completed [facility] Influenza [facility] Heamophilus Unknown Completed [facility] Influenza [facility] HPV Unknown Completed [facility] HPV Unknown Completed [facility] HPV Unknown Completed [facility] Influenza Virus Unknown Completed Universit y of Vaccine [facility] IPV Unknown Completed [facility] Meningococcal Unknown Completed [facility] (groups A, C, Y and Branc h W-135) conjugate vaccine (MCV4P) MMR Unknown Completed [facility] MMR Unknown Completed [facility] OPV Unknown Completed [facility] OPV Unknown Completed [facility] OPV Unknown [facility]pleted [facility] TDAP Unknown Completed [facility] Chickenpox Disease Unknown Completed Univer [facility] Hep B, Adol or Pedi Unknown Completed Unive rsity of Dosage [facility] Hep B, Adol or Pedi Unknown Completed Unive rsity of Dosage [facility] Hep B, Adol or Pedi Unknown Completed Unive rsity of Dosage [facility] Influenza Virus Unknown Completed Universit y of Vaccine (3+ yrs) [facility] dical Branch Polio (IPV/OPV) Unknown Completed Universit y [facility] Polio (IPV/OPV) Unknown Completed [facility]it y [facility] Polio (IPV/OPV) Unknown Completed Universit [facility] TDAP Unknown Completed [facility] TDAP Unknown Completed [facility] Influenza Virus Unknown Completed Universit y of Vaccine Quad IM 3+ [facility] Y[facility] [place] TD, NOS Unknown Completed [facility] DTAP Unknown Completed [facility] DTP Unknown Completed [facility] DTP Unknown Completed [facility] DTP Unknown Completed [facility] HEPATITIS A Unknown Completed [facility] HEPATITIS A Unknown Completed [facility] HEP B, Adult Dosage Unknown Completed Unive rsity [facility] HEP B, Adult Dosage Unknown Completed [facility] HEP B, Adult Dosage Unknown Completed [facility] Heamophilus Unknown Completed [facility] Influenza [facility] Heamophilus Unknown Completed [facility] Heamophilus Unknown Completed [facility] Influenza [facility] Heamophilus Unknown Completed [facility] HPV Unknown Completed [facility] HPV Unknown Completed [facility] HPV Unknown Completed [facility] Influenza Virus Unknown Completed Universit y of Vaccine [facility] IPV Unknown Completed [facility] Meningococcal Unknown Completed [facility] adam (groups A, C, Y and Branc h W-135) conjugate vaccine (MCV4P) MMR Unknown Completed [facility] MMR Unknown Completed [facility] OPV Unknown Completed [facility] OPV Unknown Completed [facility] OPV Unknown Completed [facility] TDAP Unknown Completed [facility] Chickenpox Disease Unknown Completed Univer sity [facility] Hep B, Adol or Pedi Unknown Completed Unive rsity of Dosage [facility] Hep B, Adol or Pedi Unknown Completed Unive rsity of Dosage [facility] Hep B, Adol or Pedi Unknown Completed Unive rsity of Dosage [facility] Influenza Virus Unknown Completed Universit y of Vaccine (3+ yrs) [facility] dical Branch Polio (IPV/OPV) Unknown Completed Universit y [facility] Polio (IPV/OPV) Unknown Completed [facility]it y [facility] Polio (IPV/OPV) Unknown Completed Universit [facility] TDAP Unknown Completed [facility] TDAP Unknown Completed [facility] Influenza Virus Unknown Completed Universit y of Vaccine Quad IM 3+ [facility] TD, NOS Unknown Completed [facility] DTAP Unknown Completed [facility] DTP Unknown Completed [facility] DTP Unknown Completed [facility] DTP Unknown Completed [facility] HEPATITIS A Unknown Completed [facility] HEPATITIS A Unknown Completed [facility] HEP B, Adult Dosage Unknown Completed [facility] HEP B, Adult Dosage Unknown Completed Unive rsity [facility] HEP B, Adult Dosage Unknown Completed Unive rsity [facility] Heamophilus Unknown Completed [facility] Heamophilus Unknown Completed [facility] Heamophilus Unknown Completed [facility] Influenza [facility] Heamophilus Unknown Completed [facility] HPV Unknown Completed [facility] HPV Unknown Completed [facility] HPV Unknown Completed [facility] Influenza Virus Unknown Completed Universit y of Vaccine [facility] IPV Unknown Completed [facility] Meningococcal Unknown Completed [facility] (groups A, C, Y and Branc h W-135) conjugate vaccine (MCV4P) MMR Unknown Completed [facility] MMR Unknown Completed [facility] OPV Unknown Completed [facility] OPV Unknown Completed [facility] OPV Unknown [facility]pleted [facility] TDAP Unknown Completed [facility] Chickenpox Disease Unknown Completed Univer sity [facility] Hep B, Adol or Pedi Unknown Completed Unive rsity of Dosage [facility] Hep B, Adol or Pedi Unknown Completed Unive rsity of Dosage [facility] Hep B, Adol or Pedi Unknown Completed Unive rsity of Dosage [facility] Influenza Virus Unknown Completed Universit y of Vaccine (3+ yrs) [facility] dical [place] Polio (IPV/OPV) Unknown Completed Universit y [facility] Polio (IPV/OPV) Unknown Completed [facility]it y [facility] Polio (IPV/OPV) [facility] TDAP Unknown Completed [facility] TDAP Unknown Completed [facility] Influenza Virus Unknown Completed Universit y of Vaccine Quad IM 3+ [facility] TD, NOS Unknown Completed [facility] DTAP Unknown Completed [facility] DTP Unknown Completed [facility] DTP Unknown Completed [facility] DTP Unknown Completed [facility] HEPATITIS A Unknown Completed [facility] HEPATITIS A Unknown Completed [facility] HEP B, Adult Dosage Unknown Completed [facility] HEP B, Adult Dosage Unknown Completed [facility] HEP B, Adult Dosage Unknown Completed Unive rsity [facility] Heamophilus Unknown Completed [facility] Influenza [facility] Heamophilus Unknown Completed [facility] Heamophilus Unknown Completed [facility] Heamophilus Unknown Completed [facility] HPV Unknown Completed [facility] HPV Unknown Completed [facility] HPV Unknown Completed [facility] Influenza Virus Unknown Completed Universit y of Vaccine [facility] IPV Unknown Completed [facility] Meningococcal Unknown Completed [facility] (groups A, C, Y and Branc h W-135) conjugate vaccine (MCV4P) MMR Unknown Completed [facility] MMR Unknown Completed [facility] OPV Unknown Completed [facility] OPV Unknown Completed [facility] OPV Unknown [facility]pleted [facility] TDAP Unknown Completed [facility] Chickenpox Disease Unknown Completed Univer sity [facility] Hep B, Adol or Pedi Unknown Completed Unive rsity of Dosage [facility] Hep B, Adol or Pedi Unknown Completed Unive rsity of Dosage [facility] Hep B, Adol or Pedi Unknown Completed Unive rsity of Dosage [facility] Influenza Virus Unknown Completed Universit y of Vaccine (3+ yrs) [facility] d[facility] Branch Polio (IPV/OPV) Unknown Completed [facility] Polio (IPV/OPV) Unknown Completed [facility] y [facility] Polio (IPV/OPV) Unknown Completed [facility] y [facility] TDAP Unknown Completed [facility] Vital Signs Vital Name Observation Time Observation Value Comments Source Systolic blood 2022-09-28 14:01:00 121 mm[Hg] Univer sity of pressure [facility] Diastolic blood 2022-09-28 14:01:00 83 mm[Hg] Unive rsity of pressure [facility] Heart rate 2022-09-28 14:01:00 87 /min [facility] Body temperature 2022-09-28 13:59:00 36.89 Katt Univ ers[facility] of [facility] Body height 2022-09-28 13:59:00 157.5 cm Universi ty of [facility] Body weight 2022-09-28 13:59:00 103.103 kg Universi ty of [facility] BMI 2022-09-28 13:59:00 41.57 kg/m2 [facility] Systolic blood 2022-08-17 16:09:00 132 mm[Hg] Univer sity of pressure [facility] Diastolic blood 2022-08-17 16:09:00 85 mm[Hg] Unive rsity of pressure [facility] Heart rate 2022-08-17 16:09:00 97 /min [facility] Body temperature 2022-08-17 16:09:00 36.83 Katt Univ ers[facility] of [facility] Body height 2022-08-17 16:09:00 157.5 cm [facility] Body weight 2022-08-17 16:09:00 104.282 kg [facility] BMI 2022-08-17 16:09:00 42.05 kg/m2 [facility] Systolic blood 2022-08-14 12:30:00 116 mm[Hg] Univer [facility]ity [facility] Diastolic blood 2022-08-14 12:30:00 67 mm[Hg] Unive rsity of pressure [facility] Heart rate 2022-08-14 12:30:00 76 /min [facility]i ty of [facility] Body temperature 2022-08-14 12:30:00 36.83 Katt [facility] Respiratory rate 2022-08-14 12:30:00 18 /min [facility] Oxygen saturation in 2022-08-14 12:30:00 100 /min [facility] of Arterial blood by [facility] P[facility] oximetry Branch Body height 2022-08-11 17:37:00 157.5 cm [facility] Body weight 2022-08-11 17:37:00 107.049 kg [facility] BMI 2022-08-11 17:37:00 43.15 kg/m2 [facility] Heart rate 2022-08-11 20:30:00 76 /min [facility] Oxygen saturation in 2022-08-11 20:30:00 100 /min University of Arterial blood by [facility] Branch Systolic blood 2022-08-11 19:00:00 145 mm[Hg] Univer [facility]ity of [facility] Diastolic blood 2022-08-11 19:00:00 84 mm[Hg] Unive rsity of pressure [facility] Respiratory rate 2022-08-11 18:00:00 17 /min [facility] Body height 2022-08-11 17:37:00 157.5 cm [facility] Body weight 2022-08-11 17:37:00 107.049 kg [facility] BMI 2022-08-11 17:37:00 43.15 kg/m2 [facility] Systolic blood 2022-08-03 15:48:00 124 mm[Hg] Univer [facility]ity [facility] Diastolic blood 2022-08-03 15:48:00 84 mm[Hg] Unive rsity [facility] Heart rate 2022-08-03 15:48:00 69 /min [facility] Body temperature 2022-08-03 15:48:00 36.39 Katt [facility] Body height 2022-08-03 15:48:00 157.5 cm [facility] Body weight 2022-08-03 15:48:00 106.641 kg [facility] BMI 2022-08-03 15:48:00 43.00 kg/m2 [facility] Heart rate 2022-07-28 09:15:00 75 /min [facility]i ty of [facility] Oxygen saturation in 2022-07-28 09:15:00 100 /min University Arterial blood by [facility] Pulse oximetry Branch Systolic blood 2022-07-28 09:00:00 147 mm[Hg] Univer sity of pressure [facility] Diastolic blood 2022-07-28 09:00:00 70 mm[Hg] Unive rsity of pressure [facility] Respiratory rate 2022-07-28 08:30:00 16 /min Univ ersity of [facility] Body temperature 2022-07-28 05:09:00 36.94 Katt Univ ers[facility] of [facility] Body height 2022-07-28 05:09:00 157.5 cm Universi ty of [facility] Body weight 2022-07-28 05:09:00 106.777 kg [facility] of [facility] BMI 2022-07-28 05:09:00 43.06 kg/m2 [facility] Systolic blood 2022-07-27 15:04:00 123 mm[Hg] Univer sity of pressure [facility] Diastolic blood 2022-07-27 15:04:00 77 mm[Hg] Unive rsity of pressure [facility] Heart rate 2022-07-27 15:04:00 72 /min Universi ty of [facility] Body temperature 2022-07-27 15:04:00 36.11 Katt Univ ers[facility] of [facility] Body height 2022-07-27 15:04:00 157.5 cm [facility] Body weight 2022-07-27 15:04:00 106.641 kg [facility] BMI 2022-07-27 15:04:00 43.00 kg/m2 [facility] Systolic blood 2022-07-22 14:12:00 131 mm[Hg] Univer sity of pressure [facility] Diastolic blood 2022-07-22 14:12:00 83 mm[Hg] Unive rsity of pressure [facility] Heart rate 2022-07-22 14:12:00 97 /min Universi ty of [facility] Body temperature 2022-07-22 14:12:00 36.61 Katt Univ ersity of [facility] Body height 2022-07-22 14:12:00 157.5 cm [facility] Body weight 2022-07-22 14:12:00 106.913 kg [facility] BMI 2022-07-22 14:12:00 43.11 kg/m2 Universi ty of [facility] Heart rate 2022-07-15 05:30:00 74 /min [facility]i ty of [facility] Oxygen saturation in 2022-07-15 05:30:00 100 /min University of Arterial blood by [facility] Pulse oximetry Branch Systolic blood 2022-07-15 05:00:00 123 mm[Hg] Univer sity of pressure [facility] Diastolic blood 2022-07-15 05:00:00 65 mm[Hg] Unive rsity of [facility] Respiratory rate 2022-07-15 05:00:00 18 /min Univ ersity of [facility] Body temperature 2022-07-15 01:49:00 36.89 Katt Univ ersity of [facility] Body height 2022-07-15 01:49:00 157.5 cm [facility] Body weight 2022-07-15 01:49:00 106.55 kg [facility] BMI 2022-07-15 01:49:00 42.96 kg/m2 [facility] ty [facility] Systolic blood 2022-07-09 14:02:00 112 mm[Hg] Univer sity of [facility] Diastolic blood 2022-07-09 14:02:00 71 mm[Hg] Unive rsity of pressure [facility] Heart rate 2022-07-09 14:02:00 78 /min [facility] Body temperature 2022-07-09 14:02:00 36.5 Katt Univ ersity of [facility] Body height 2022-07-09 14:02:00 157.5 cm [facility] Body weight 2022-07-09 14:02:00 104.781 kg [facility] BMI 2022-07-09 14:02:00 42.25 kg/m2 [facility] Systolic blood 2022-07-06 17:01:00 122 mm[Hg] Univer [facility]ity [facility] Diastolic blood 2022-07-06 17:01:00 66 mm[Hg] Unive [facility]ity [facility] Heart rate 2022-07-06 17:01:00 83 /min Universi ty of [facility] Oxygen saturation in 2022-07-06 17:01:00 100 /min University Arterial blood by [facility] Pulse oximetry Branch Body temperature 2022-07-06 16:34:00 37 Katt Univ ersity of [facility] Respiratory rate 2022-07-06 16:34:00 20 /min Univ ersity of [facility] Body height 2022-07-06 16:34:00 157.5 cm [facility] Body weight 2022-07-06 16:34:00 105.235 kg [facility] BMI 2022-07-06 16:34:00 42.43 kg/m2 [facility] Systolic blood 2022-06-29 15:32:00 134 mm[Hg] [facility] Diastolic blood 2022-06-29 15:32:00 79 mm[Hg] [facility] Heart rate 2022-06-29 15:32:00 70 /min [facility] Body temperature 2022-06-29 15:32:00 36.39 Katt [facility] Body height 2022-06-29 15:32:00 157.5 cm [facility] Body weight 2022-06-29 15:32:00 105.733 kg [facility] BMI 2022-06-29 15:32:00 42.63 kg/m2 [facility] Systolic blood 2022-06-18 19:15:00 130 mm[Hg] [facility] Diastolic blood 2022-06-18 19:15:00 81 mm[Hg] [facility] Heart rate 2022-06-18 19:15:00 90 /min [facility] Body temperature 2022-06-18 19:15:00 36.28 Katt [facility] Body height 2022-06-18 19:15:00 157.5 cm [facility] Body weight 2022-06-18 19:15:00 105.235 kg [facility] BMI 2022-06-18 19:15:00 42.43 kg/m2 [facility] Systolic blood 2022-06-03 19:45:00 155 mm[Hg] Univer sity of pressure [facility] Diastolic blood 2022-06-03 19:45:00 92 mm[Hg] Unive rsity of pressure [facility] Heart rate 2022-06-03 19:15:00 96 /min [facility] Respiratory rate 2022-06-03 19:15:00 18 /min Univ ersity of [facility] Oxygen saturation in 2022-06-03 19:15:00 100 /min University Arterial blood by [facility] Pulse oximetry Branch Body temperature 2022-06-03 16:05:00 37.11 Katt Univ ersity of [facility] Body height 2022-06-03 16:05:00 157.5 cm [facility] Body weight 2022-06-03 16:05:00 102.967 kg [facility]i [facility] of [facility] BMI 2022-06-03 16:05:00 41.52 kg/m2 [facility] Systolic blood 2022-06-01 13:41:00 133 mm[Hg] Univer [facility] Diastolic blood 2022-06-01 13:41:00 85 mm[Hg] Unive rsity of pressure [facility] Heart rate 2022-06-01 13:41:00 111 /min Universi ty of [facility] Body temperature 2022-06-01 13:41:00 36.83 Katt Univ ersity of [facility] Body height 2022-06-01 13:41:00 157.5 cm [facility] Body weight 2022-06-01 13:41:00 103.556 kg [facility] BMI 2022-06-01 13:41:00 41.76 kg/m2 [facility] Systolic blood 2022-05-19 15:08:00 113 mm[Hg] Univer sity of pressure [facility] Diastolic blood 2022-05-19 15:08:00 74 mm[Hg] Unive [facility]ity of [facility] Heart rate 2022-05-19 15:08:00 86 /min [facility] Body temperature 2022-05-19 15:08:00 36.61 Katt [facility] Body height 2022-05-19 15:08:00 157.5 cm [facility] Body weight 2022-05-19 15:08:00 103.692 kg [facility] BMI 2022-05-19 15:08:00 41.81 kg/m2 [facility] Heart rate 2022-05-09 22:40:00 108 /min [facility] Oxygen saturation in 2022-05-09 22:40:00 100 /min [facility] of Arterial blood by [facility] Pulse oximetry Branch Systolic blood 2022-05-09 22:30:00 126 mm[Hg] [facility]ity [facility] Diastolic blood 2022-05-09 22:30:00 60 mm[Hg] [facility] Body temperature 2022-05-09 21:20:00 37.78 Katt [facility] Respiratory rate 2022-05-09 21:20:00 20 /min [facility] Body temperature 2022-05-09 19:34:54 38.11 Katt [facility] Systolic blood 2022-05-09 18:05:00 125 mm[Hg] Univer [facility]ity [facility] Diastolic blood 2022-05-09 18:05:00 62 mm[Hg] Unive [facility] Heart rate 2022-05-09 18:05:00 120 /min [facility] Respiratory rate 2022-05-09 18:05:00 16 /min [facility] Body height 2022-05-09 18:05:00 157.5 cm [facility] Body weight 2022-05-09 18:05:00 102.604 kg [facility] BMI 2022-05-09 18:05:00 41.37 kg/m2 [facility] Oxygen saturation in 2022-05-09 18:05:00 100 /min [facility] of Arterial blood by [facility] Pulse oximetry Branch Systolic blood 2022-04-29 17:25:00 114 mm[Hg] Univer sity of pressure [facility] Diastolic blood 2022-04-29 17:25:00 74 mm[Hg] Unive rsity of pressure [facility] Heart rate 2022-04-29 17:25:00 82 /min Universi ty of [facility] Body temperature 2022-04-29 17:25:00 36.11 Katt Univ ersity of [facility] Body height 2022-04-29 17:25:00 160 cm Universi ty of [facility] Body weight 2022-04-29 17:25:00 103.919 kg Universi ty of [facility] BMI 2022-04-29 17:25:00 40.58 kg/m2 [facility]i ty of [facility] Systolic blood 2022-04-01 16:11:00 104 mm[Hg] Univer sity of pressure [facility] Diastolic blood 2022-04-01 16:11:00 70 mm[Hg] Unive rsity of pressure [facility] Heart rate 2022-04-01 16:11:00 76 /min [facility]i ty of [facility] Body temperature 2022-04-01 16:11:00 36.11 Katt Univ ersity of [facility] Body height 2022-04-01 16:11:00 160 cm [facility] Body weight 2022-04-01 16:11:00 103.103 kg Universi ty of [facility] BMI 2022-04-01 16:11:00 40.26 kg/m2 Universi ty of [facility] Systolic blood 2022-03-02 15:40:00 130 mm[Hg] Univer sity of pressure [facility] Diastolic blood 2022-03-02 15:40:00 83 mm[Hg] Unive rsity of pressure [facility] Heart rate 2022-03-02 15:40:00 109 /min Universi ty of [facility] Body temperature 2022-03-02 15:40:00 35.94 Katt Univ ersity of [facility] Body height 2022-03-02 15:40:00 160 cm Universi ty of [facility] Body weight 2022-03-02 15:40:00 101.969 kg Universi ty of [facility] BMI 2022-03-02 15:40:00 39.82 kg/m2 [facility] Respiratory rate 2022-03-02 08:47:00 18 /min Univ [facility] Systolic blood 2022-03-02 08:00:00 121 mm[Hg] Univer [facility]ity of [facility] Diastolic blood 2022-03-02 08:00:00 66 mm[Hg] Unive rsity of [facility] Heart rate 2022-03-02 08:00:00 107 /min [facility] Oxygen saturation in 2022-03-02 08:00:00 100 /min University of Arterial blood by [employer] Pulse oximetry Branch Body temperature 2022-03-02 07:04:00 37.67 Katt [facility] Body height 2022-03-02 05:39:00 160 cm [facility] Body weight 2022-03-02 05:39:00 99.791 kg [facility] BMI 2022-03-02 05:39:00 38.97 kg/m2 [facility] Systolic blood 2022-02-25 15:16:00 131 mm[Hg] Univer [facility]ity of [facility] Diastolic blood 2022-02-25 15:16:00 80 mm[Hg] Unive rsity of [facility] Heart rate 2022-02-25 15:16:00 82 /min [facility] Body temperature 2022-02-25 15:16:00 36.28 Katt [facility] Respiratory rate 2022-02-25 15:16:00 18 /min [facility] Body height 2022-02-25 15:16:00 160 cm [facility] Body weight 2022-02-25 15:16:00 97.523 kg [facility] BMI 2022-02-25 15:16:00 38.09 kg/m2 [facility] Oxygen saturation in 2022-02-25 15:16:00 100 /min University of Arterial blood by [employer] Pulse oximetry Branch Systolic blood 2022-02-02 14:35:00 138 mm[Hg] Univer sity of [facility] Diastolic blood 2022-02-02 14:35:00 77 mm[Hg] Unive rsity of [facility] Heart rate 2022-02-02 14:35:00 72 /min [facility] Body temperature 2022-02-02 14:35:00 35.83 Katt [facility] Body height 2022-02-02 14:35:00 157.5 cm [facility] Body weight 2022-02-02 14:35:00 103.329 kg [facility] BMI 2022-02-02 14:35:00 41.67 kg/m2 [facility] Systolic blood 2022-01-19 15:07:00 132 mm[Hg] Univer [facility]ity of [facility] Diastolic blood 2022-01-19 15:07:00 88 mm[Hg] Unive rsity of [facility] Heart rate 2022-01-19 15:07:00 82 /min [facility] Body temperature 2022-01-19 15:06:00 36 Katt [facility] Body height 2022-01-19 15:06:00 157.5 cm [facility] Body weight 2022-01-19 15:06:00 102.422 kg [facility] BMI 2022-01-19 15:06:00 41.30 kg/m2 [facility] Systolic blood 2021-12-30 18:17:00 122 mm[Hg] Univer [facility]ity of [facility] Diastolic blood 2021-12-30 18:17:00 70 mm[Hg] Unive rsity of [facility] Heart rate 2021-12-30 18:17:00 66 /min [facility] Body temperature 2021-12-30 18:17:00 36.11 Katt [facility] Body height 2021-12-30 18:17:00 157.5 cm [facility] Body weight 2021-12-30 18:17:00 102.331 kg [facility] BMI 2021-12-30 18:17:00 41.26 kg/m2 [facility] Procedures Procedure Date / Time Performing Clinician Source Performed CBC WITH DIFF 2022-08-12 09:09:00 Carroll Hinson [facility] CBC WITH DIFF 2022-08-12 09:09:00 Carroll Hinson [facility] VENOUS CORD GAS 2022-08-11 21:50:00 Alex [facility] VENOUS CORD GAS 2022-08-11 21:50:00 Alex [facility] SECTION 2022-08-11 20:50:00 Carroll Hinson [facility] TUBAL LIGATION 2022-08-11 20:50:00 Carroll Hinson [facility] SECTION 2022-08-11 20:50:00 Carroll Hinson [facility] TUBAL LIGATION 2022-08-11 20:50:00 Carroll Hinson [facility] SGOT (ASPARTATE AMINO 2022-08-11 18:57:00 Alex [facility] TRANSFER) Medical Branch CREATININE 2022-08-11 18:57:00 Alex [facility] ALANINE AMINO 2022-08-11 18:57:00 Alex [facility] TRANSFERASE(SGPT Medical Branch LACTATE DEHYDROGENASE 2022-08-11 18:57:00 Alex [facility] URIC ACID 2022-08-11 18:57:00 Alex [facility] CBC WITH DIFF 2022-08-11 18:57:00 Alex [facility] HEPATITIS B SURFACE 2022-08-11 18:57:00 Alex [facility] ANTIGEN [facility] HB ABO GROUPING 2022-08-11 18:57:00 Alex [facility] RHO (D) IMMUNE GLOBULIN 2022-08-11 18:57:00 Carroll Hinson [facility] PROTEIN CREAT RATIO 2022-08-11 18:57:00 Riegor, [facility] URINE RANDOM Medical Branch HIV 1/2 AG-AB WITH 2022-08-11 18:57:00 Alex Magda [facility] REFLEX [facility] SYPHILIS IGG/IGM 2022-08-11 18:57:00 Alex [facility] SGOT (ASPARTATE AMINO 2022-08-11 18:57:00 Alex [facility] TRANSFER) Medical Branch CREATININE 2022-08-11 18:57:00 Alex [facility] ALANINE AMINO 2022-08-11 18:57:00 Alex [facility] TRANSFERASE(SGPT [facility] LACTATE DEHYDROGENASE 2022-08-11 18:57:00 Alex [facility] URIC ACID 2022-08-11 18:57:00 Alex [facility] CBC WITH DIFF 2022-08-11 18:57:00 Alex [facility] HEPATITIS B SURFACE 2022-08-11 18:57:00 Alex [facility] ANTIGEN [facility] HB ABO GROUPING 2022-08-11 18:57:00 Alex [facility] RHO (D) IMMUNE GLOBULIN 2022-08-11 18:57:00 Carroll Hinson [facility] PROTEIN CREAT RATIO 2022-08-11 18:57:00 Alex [facility] URINE RANDOM [facility] HIV 1/2 AG-AB WITH 2022-08-11 18:57:00 Alex Magda [facility] REFLEX [facility] SYPHILIS IGG/IGM 2022-08-11 18:57:00 Alex [facility] LCC OR CLC ONLY - 2022-08-11 16:07:00 Ingrid Alcazar [facility] AMNISURE ROM TEST [facility] LCC OR CLC ONLY - 2022-08-11 16:07:00 Ingrid Alcazar [facility] AMNISURE ROM TEST [facility] SCANNED LAB RESULTS 2022-08-05 05:01:00 Doctor Unassigned, No [facility] POCT URINALYSIS W/O 2022-08-03 00:00:00 Carroll Hinson [facility] [place] SPECIFIC GRAVITY [facility] COMP. METABOLIC PANEL 2022-07-28 06:42:00 [facility] ([id number]) [facility] CBC WITH DIFF 2022-07-28 06:42:00 [facility] 2022-07-28 06:42:00 Maria L Garcia [facility] [place] URINE RANDOM [facility] POCT URINALYSIS W/O 2022-07-27 00:00:00 Carroll Hinson [facility] [place] SPECIFIC GRAVITY [facility] DISCLOSURE AND CONSENT 2022-07-22 05:01:00 Doctor Unassigned, No [facility] h PROCEDURES - FEMALM DISCLOSURE AND CONSENT 2022-07-22 05:01:00 Doctor Unassigned, No [facility] h PROCEDURES - FEMALM POCT URINALYSIS W/O 2022-07-22 00:00:00 Carroll Hinson [facility] [place] SPECIFIC GRAVITY [facility] URINALYSIS 2022-07-15 02:45:00 Renata Diaz o f [facility] POCT URINALYSIS W/O 2022-07-09 00:00:00 Carroll Hinson [facility] [place] SPECIFIC GRAVITY [facility] LCC OR CLC ONLY - 2022-07-06 17:01:00 Archana Castellon [facility] AMNISURE ROM TEST A Medical Branch L&D VISIT 2022-07-06 05:01:00 Doctor Unassigned, No [facility] (NON-DELIVERED) [facility] POCT URINALYSIS W/O 2022-06-29 00:00:00 Carroll Hinson [facility] [place] SPECIFIC GRAVITY [facility] PATIENT FINANCIAL 2022-06-18 16:38:21 Doctor Unassigned, No [facility] POCT URINALYSIS W/O 2022-06-18 00:00:00 Carroll Hinson Un iversity [facility] AMYLASE 2022-06-03 18:29:00 Eris Queta [facility] LIPASE 2022-06-03 18:29:00 Eris [facility] COMP. METABOLIC PANEL 2022-06-03 18:29:00 [facility] ([id number]) [facility] CBC WITH DIFF 2022-06-03 18:29:00 Eris [facility] URINALYSIS 2022-06-03 18:29:00 Schulte [facility] ADC CLC OR LCC ONLY - 2022-06-03 18:29:00 [facility] ASSIGNMENT OF BENEFITS 2022-06-03 15:57:22 Doctor Unassigned, No [facility] POCT URINALYSIS W/O 2022-06-01 00:00:00 [facility]/SUPPLY JUSTIFICATION 2022-05-28 06:01:00 Doctor Unassigned, No [facility] TDAP VACCINE, >11 YRS, 2022-05-19 15:10:09 Lizzie Bell [facility] POCT URINALYSIS W/O 2022-05-19 00:00:00 Lizzie Bell [facility] COMP. METABOLIC PANEL 2022-05-09 19:36:00 France Ken [facility] ([id number]) [facility] CBC WITH DIFF 2022-05-09 19:36:00 France Ken [facility] URINE DRUG (IMMUNOASSAY) 2022-05-09 18:38:00 [facility] 2022-05-09 18:38:00 Coco Ornelas [facility] RAPID INFLUENZA A/B 2022-05-09 18:38:00 Coco Ornelas [facility] COVID-19 (ID NOW RAPID 2022-05-09 18:38:00 Coco Ornelas [facility] TESTING) Medical Branch CONSENT/REFUSAL FOR 2022-05-09 17:56:35 Doctor Unassigned, No [facility] [place] [facility] Name Medical Branch CONSENT/REFUSAL FOR 2022-05-09 06:01:00 Doctor Unassigned, No [facility] [place] [facility] Name [facility] POCT URINALYSIS W/O 2022-04-29 00:00:00 Carroll Hinson [facility] [place] SPECIFIC ANIMAS [facility] POCT URINALYSIS W/O 2022-04-01 00:00:00 Carroll Hinson [facility] [place] SPECIFIC ANIMAS [facility] COMP. METABOLIC PANEL 2022-03-02 06:16:00 Candy Byers [facility] ([id number]) Medical Branch CBC WITH DIFF 2022-03-02 06:16:00 Candy Byers [place] [facility] [place] [facility] RAPID INFLUENZA A/B 2022-03-02 05:50:00 Candy Byers [facility] Medical Branch COVID-19 (ID NOW RAPID 2022-03-02 05:50:00 Candy Byers [facility] TESTING) Medical Branch CONSENT/REFUSAL FOR 2022-03-02 05:13:56 Doctor Unassigned, No [facility] [place] [facility] Name [facility] CONSENT/REFUSAL FOR 2022-02-25 15:09:11 Doctor Unassigned, No [facility] [place] [facility] Name [facility] AUTHORIZATION TO RELEASE 2022-02-02 05:01:00 Doctor [facility]assigned[facility] Name Medical Branch POCT URINALYSIS W/O 2022-02-02 00:00:00 Carroll Hinson Un [facility]ity [facility] Medical Branch POCT URINALYSIS W/O 2022-01-21 00:00:00 Carroll Hinson Un [facility] of [facility] Medical Branch Plan of Care Planned Activity Planned Date Details Comments Source Future Scheduled 2023-02-20 [facility] (#1) [code = COVID-19 VACCINE (#1)] Future Scheduled 2023-02-20 [facility] 10:02:52 screening (procedure) [code = 111323018] Future Scheduled 2023-02-20 [facility] Test 10:02:52 malignant neoplasm of cervix (procedure) [code = 995403438] Future Scheduled 2023-02-20 [facility] 10:02:52 (#1) [code = INFLUENZA VACCINE (#1)] Future Scheduled 2022-08-09 COVID[facility] [facility] Test 13:32:12 (#1) [code = COVID-19 VACCINE (#1)] Future Scheduled 2022-08-09 [facility] Test 13:32:12 screening (procedure) [code = 205586777] Future Scheduled 2022-08-09 [facility] Test 13:32:12 malignant neoplasm of cervix (procedure) [code = 327069476] Future Scheduled 2022-08-09 [facility]INE [facility] 13:32:12 [code = INFLUENZA VACCINE] Encounters Start End Encounter Admission Attending Care Care Encounter Source Date/Time Date/Time Type Type Clinicians Facility Department ID 2022-07-06 Outpatient P [facility] KIMBERLY [id number] Univers 15:01:50 ity [facility] 2021-09-22 Outpatient R QUETA SCHULTE [facility] 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 [id number] Univers 14:02:41 ity [facility] 2021-02-18 Emergency [facility] [id number] Univers 03:24:03 ity [facility] 2021-02-16 Emergency [facility] [id number] Univers 14:52:25 ity [facility] 2022-09-28 2022-09-28 Outpatient R RAY [facility] [id number] Univers 09:00:00 09:35:05 LIZZIE ity [facility] 2022-09-28 2022-09-28 Routine Ray [facility] [id number] Univers 09:00:00 09:35:05 Lizzie A HEALTH [id number] ity of Visit CLEAR [id number] [facility] [id number] [address] OFFICE BUILDING 2022-09-02 2022-09-02 Outpatient R SRAVAN [facility] [id number] Univers 00:00:00 00:00:00 CARROLL edwin [facility] 2022-09-01 2022-09-01 Patient Hinson [facility] [id number] Univers 00:00:00 00:00:00 Secure Msg Carroll Foster HEALTH [id number] [id number] [id number] [address] OFFICE [facility] 2022-08-21 2022-08-21 Patient Sravan [facility] [id number] Univers 00:00:00 00:00:00 Secure Msg Carroll Foster HEALTH [id number] [id number] [id number] [address] 2022-08-17 2022-08-17 Outpatient R ANDREA [facility] [id number] Univers 10:45:00 11:29:49 JESSICA cabral [facility] 2022-08-17 2022-08-17 [facility] [id number] Univers 10:45:00 11:29:49 Jessica HEALTH [id number] i ty of Visit [id number] [id number] [address] OFFICE [facility] 2022-08-17 2022-08-17 Telephone Sravan [facility] 1.2.840.114 10 [id number] Univers 00:00:00 00:00:00 Carroll Kristin HEALTH 350.1.13.10 [place] [id number] [address] OFFICE [facility] 2022-08-11 2022-08-14 Inpatient P INGE [facility] KIM[place] [id number] Univers 10:40:00 10:00:00 INGRID marianna [facility] 2022-08-11 2022-08-14 [facility] 1.2.840.114 [id number] Univers 10:40:00 10:00:00 Encounter Ingrid Kinney [facility] 350.1.13.10 [place] [id number] [address] ([facility]) 2022-08-13 2022-08-13 Outpatient R SRAVAN DCNY [facility] [id number] [facility] 13:45:00 13:45:00 CARROLL ity of [facility] 2022-08-11 2022-08-11 Surgery Sravan [facility] 1.2.845.733 [id number] [facility] 15:00:00 17:19:00 Carroll D HEALTH 350.1.13.10 [place] [id number] [address] ([facility]) 2022-08-11 2022-08-11 Telephone Sravan [facility] 1.2.840.114 10 [id number] Univers 00:00:00 00:00:00 Carroll Foster HEALTH 350.1.13.10 [place] [id number] [address] OFFICE BUILDING 2022-08-11 2022-08-11 Patient Sravan [facility] 1.2.630.417 [id number] [id number] Univers 00:00:00 00:00:00 Secure Msg Carroll Foster HEALTH 350.1.13.10 [place] [id number] [address] OFFICE BUILDING 2022-08-10 2022-08-10 Patient Sravan [facility] 1.2.482.087 [id number] Univers 00:00:00 00:00:00 Secure Msg Malaven D HEALTH 350.1.13.10 [place] [id number] [address] OFFICE BUILDING 2022-08-07 2022-08-07 Patient Sravan [facility] 1.2.056.029 [id number] [id number] Univers 00:00:00 00:00:00 Secure Msg Sethilyn D HEALTH 350.1.13.10 [place] [id number] [address] OFFICE BUILDING 2022-08-06 2022-08-06 Telephone Sravan [facility] 1.2.840.114 10 [id number] Univers 00:00:00 00:00:00 Carroll D [facility] 350.1.13.10 [place] [id number] [address] OFFICE BUILDING 2022-08-05 2022-08-05 Outpatient EL Sravan [facility] RICHY [id number] [facility] 07:24:00 07:24:[address] 2022-08-05 2022-08-05 Orders Doctor VANI 1.2.840.114 [id number] Univers 00:00:00 00:00:00 Only Unassigned, RAKEL 350.1.13.10 ity of [place] [facility] 4.2.7.2.686 Michael as [id number] [address] 2022-08-03 2022-08-03 Outpatient R SRAVAN [facility] [id number] Univers 10:15:00 11:34:22 CARROLL ity of [facility] 2022-08-03 2022-08-03 Routine Sravan [facility] 1.2.582.108 [id number] [id number] Univers 10:15:00 11:34:22 Carroll D [facility] 350.1.13.10 ity of Visit [place] [id number] [address] OFFICE BUILDING 2022-07-27 2022-07-28 Outpatient P MARIA L GARCIA [facility] O BY [id number] Univers 23:54:00 04:20:00 MARIA L GARCIA ity of [facility] 2022-07-27 2022-07-28 Emergency Georges [facility] 1.2.840.114 [id number] Univers 23:54:00 04:20:00 Maria L reveles 350.1.13.10 it[place] [id number] [place] [id number] [place] 2022-07-28 2022-07-28 Patient Sravan [facility] 1.2.113.211 [id number] Univers 00:00:00 00:00:00 Secure Msg Carroll Foster [facility] 350.1.13.10 [place] [id number] [address] OFFICE [facility] 2022-07-27 2022-07-27 Outpatient R SRAVAN [facility] [id number] Univers 09:45:00 10:50:04 CARROLL [facility] 2022-07-27 2022-07-27 [facility]ine [facility] 1.2.139.405 [id number] Univers 09:45:00 10:50:04 Carroll Foster HEALTH 350.1.13.10 it[place] [id number] [address] OFFICE [facility] 2022-07-22 2022-07-22 Outpatient R SRAVAN [facility] [id number] Univers 09:30:00 09:54:18 CARROLL [facility] 2022-07-22 2022-07-22 [facility]ine [facility] 1.2.409.018 [id number] Univers 09:30:00 09:54:18 Carroll Foster HEALTH 350.1.13.10 it[place] [id number] [address] OFFICE [facility] 2022-07-16 2022-07-16 Outpatient R SRAVAN [facility] [id number] Univers 14:00:00 14:00:00 CARROLL [facility] 2022-07-14 2022-07-15 Outpatient P RENATA DIAZ [facility] KIM[place] [id number] Univers 20:30:00 00:42:00 RENATA DIAZ [facility] 2022-07-14 2022-07-15 [facility] Emily [facility] 1.2.383.758 [id number] Univers 20:30:00 00:42:00 Encounter [facility] 350.1.13.10 [place] [id number] [address] ([facility]) 2022-07-14 2022-07-14 Patient Sravan [facility] 1.2.981.089 [id number] Univers 00:00:00 00:00:00 Secure Msg Carroll Foster HEALTH 350.1.13.10 [place] [id number] [address] OFFICE BUILDING 2022-07-09 2022-07-09 Outpatient R ANDREA [facility] [id number] Univers 09:00:00 09:26:46 [facility] 2022-07-09 2022-07-09 Routine Andrea [facility] 1.2.840.114 [id number] Univers 09:00:00 09:26:46 [facility] 350.1.13.10 i ty of Visit [place] [id number] [address] OFFICE BUILDING 2022-07-07 2022-07-07 Case Emanuel [facility] 1.2.028.023 [id number] [id number] Univers 00:00:00 00:00:00 Management Ion ARTEAGA 350.1.13.10 it[place] of [place] [id number] La dical [address] 2022-07-07 2022-07-07 Telephone Sravan [facility] 1.2.840.114 10 [id number] Univers 00:00:00 00:00:00 Carroll Foster HEALTH 350.1.13.10 [place] [id number] [address] OFFICE BUILDING 2022-07-06 2022-07-06 Outpatient P MARISOL [facility] [place] [id number] Univers 11:09:00 14:50:00 RACHANA cabral [facility] 2022-07-06 2022-07-06 Fede Castellon [facility] 1.2.840.114 10 [id number] Univers 11:09:00 14:50:00 Encounter Archana Eldridge HEALTH 350.1.13.10 [place] [id number] [address] ([facility]) 2022-07-06 2022-07-06 Patient ASAEL Hinson 1.2.788.716 [id number] Univers 00:00:00 00:00:00 Secure Msg MasonCarroll D HEALTH 350.1.13.10 [place] [id number] [address] OFFICE BUILDING 2022-07-06 2022-07-06 Telephone Sravan [facility] 1.2.840.114 10 [id number] Univers 00:00:00 00:00:00 Carroll D HEALTH 350.1.13.10 [place] [id number] [address] OFFICE BUILDING 2022-07-06 2022-07-06 Orders Doctor VANI 1.2.840.114 [id number] Univers 00:00:00 00:00:00 Only Unassigned, RAKEL 350.1.13.10 ity of [place] [facility] 4.2.7.2.686 Michael as [id number] [address] 2022-06-29 2022-06-29 Outpatient R SRAVAN DCNY [facility] [id number] Univers 10:15:00 11:00:25 CARROLL ity of [facility] 2022-06-29 2022-06-29 Routine Sravan [facility] 1.2.242.135 [id number] Univers 10:15:00 11:00:25 Carroll Foster HEALTH 350.1.13.10 ity of Visit [place] [id number] [address] OFFICE BUILDING 2022-06-22 2022-06-22 Patient Sravan [facility] 1.2.725.134 [id number] Univers 00:00:00 00:00:00 Secure Carroll Foster HEALTH 350.1.13.10 [place] [id number] [address] OFFICE BUILDING 2022-06-19 2022-06-19 Patient Sravan [facility] 1.2.215.021 [id number] Univers 00:00:00 00:00:00 Secure [facility] Carroll Kristin HEALTH 350.1.13.10 [place] of [place] [id number] [address] OFFICE BUILDING 2022-06-18 2022-06-18 Routine Sravan [facility] 1.2.000.025 [id number] [id number] Univers 13:00:00 13:41:44 Carroll Foster HEALTH 350.1.13.10 ity of Visit [place] [id number] [address] OFFICE [facility] 2022-06-18 2022-06-18 Outpatient P CLAYTON MATOS [facility] [id number] Univers 11:15:00 12:32:00 CLAYTON [facility]OS [facility] 2022-06-18 2022-06-18 Cq Developer 1, Ramiro Mfjaimie Us Room [facility] 1.2 .840.114 [id number] Univers 11:15:00 12:00:00 Visit Clayton Matos [facility] 350.1.13.10 it[place] of [place] [id number] [address] OFFICE BUILDING 2022-06-18 2022-06-18 Patient Sravan [facility] 1.2.125.702 [id number] Univers 00:00:00 00:00:00 Secure [facility] Carroll HEALTH 350.1.13.10 [place] [id number] [address] OFFICE BUILDING 2022-06-18 2022-06-18 Orders Doctor VANI 1.2.840.114 [id number] Univers 00:00:00 00:00:00 Only Unassigned, RAKEL 350.1.13.10 ity of [place] [facility] 4.2.7.2.686 Michael as [id number] [address] 2022-06-16 2022-06-16 Outpatient P [facility] [id number] Univers 09:45:00 09:45:00 ity of [facility] 2022-06-05 2022-06-05 Patient Sravan [facility] 1.2.477.956 [id number] Univers 00:00:00 00:00:00 Secure Carroll Z[employer]os HEALTH 350.1.13.10 [place] [id number] [address] OFFICE [facility] 2022-06-04 2022-06-04 Patient Hinson [facility] 1.2.298.896 [id number] Univers 00:00:00 00:00:00 Secure Msg Sethilyn [employer] HEALTH 350.1.13.10 [place] of [place] [id number] [address] OFFICE [facility] 2022-06-03 2022-06-03 Outpatient X QUETA SCHULTE [facility] [place] [id number] Univers 10:06:00 14:30:00 ity of [facility] 2022-06-03 2022-06-03 Emergency Queta Schulte [facility] 1.2.840.114 10 [id number] Univers 10:06:00 14:30:00 Cam CHANDLER 350.1.13.10 i ty [facility] [place] [id number] [address] 2022-06-03 2022-06-03 Telephone Sravan [facility] 1.2.840.114 10 [id number] Univers 00:00:00 00:00:00 Corrupt Lace 350.1.13.10 ity of [place] [id number] [address] OFFICE [facility] 2022-06-02 2022-06-02 Telephone Sravan [facility] 1.2.840.114 10 [id number] Univers 00:00:00 00:00:00 [employer] HEALTH 350.1.13.10 it[place] of [place] [id number] [address] [facility] 2022-06-01 2022-06-01 Outpatient R SRAVAN [facility] [id number] Univers 08:30:00 10:21:21 CARROLL ity of [facility] 2022-06-01 2022-06-01 Cq Developer Draw, Clc-Bls Lab [facility] 1.2.8 40.114 [id number] Univers 08:30:00 08:45:00 Visit Carroll Hinson Kristin [facility] 350.1.13 .10 [place] of [place] [id number] [address] OFFICE [facility] 2022-06-01 2022-06-01 Routine Sravan [facility] 1.2.353.583 [id number] Univers 08:00:00 08:15:00 Carroll Foster [facility] 350.1.13.10 ity of Visit [place] [id number] [address] OFFICE [facility] 2022-06-01 2022-06-01 Telephone Sravan [facility] 1.2.840.114 10 [id number] Univers 00:00:00 00:00:00 Carroll Foster [facility] 350.1.13.10 ity of [place] [id number] [address] OFFICE [facility] 2022-05-28 2022-05-28 Orders Doctor VANI 1.2.840.114 [id number] Univers 00:00:00 00:00:00 Only Unassigned, RAKEL 350.1.13.10 ity of [place] [facility] 4.2.7.2.686 Michael as [id number] [address] 2022-05-22 2022-05-22 Cq Developer Draw, Clc-Bls Lab [facility] 1.2.8 40.114 [id number] Univers 08:30:00 08:45:00 Visit HinsonIsabellaCarroll Kristin HEALTH 350.1.13 .10 ity of [place] [id number] [address] OFFICE [facility] 2022-05-22 2022-05-22 Outpatient R SRAVAN [facility] [id number] Univers 08:30:00 08:30:00 CARROLL ity of [facility] 2022-05-22 2022-05-22 Patient Sravan [facility] 1.2.862.744 [id number] Univers 00:00:00 00:00:00 Secure Msg Carroll Foster HEALTH 350.1.13.10 ity of [place] [id number] [address] OFFICE [facility] 2022-05-22 2022-05-22 Telephone Sravan [facility] 1.2.840.114 10 [id number] Univers 00:00:00 00:00:00 Carroll Foster HEALTH 350.1.13.10 [place] of [place] [id number] [address] OFFICE [facility] 2022-05-20 2022-05-20 Patient Sravan [facility] 1.2.606.982 [id number] Univers 00:00:00 00:00:00 Secure Msg Carroll Foster HEALTH 350.1.13.10 [place] of [place] [id number] [address] OFFICE [facility] 2022-05-19 2022-05-19 Cq Developer Draw, Clc-Bls Lab [facility] 1.2.8 40.114 [id number] Univers 10:15:00 10:30:00 Visit Unknown, Attending HEALTH 350.1.13.10 [place] of [place] [id number] [address] OFFICE [facility] 2022-05-19 2022-05-19 Outpatient R RAY [facility] [id number] Univers 09:00:00 09:25:11 LIZZIE cabral [facility] 2022-05-19 2022-05-19 Routine Ray [facility] 1.2.715.340 [id number] Univers 09:00:00 09:25:11 Lizzie A HEALTH 350.1.13.10 ity of [place] [id number] [address] OFFICE BUILDING 2022-05-19 2022-05-19 Telephone Ray [facility] 1.2.840.114 10 [id number] Univers 00:00:00 00:00:00 Lizzie A HEALTH 350.1.13.10 [place] of [place] [id number] [address] OFFICE [facility] 2022-05-11 2022-05-11 Patient Sravan [facility] 1.2.786.434 [id number] Univers 00:00:00 00:00:00 Secure Msg Carroll Foster HEALTH 350.1.13.10 [place] [id number] [address] 2022-05-11 2022-05-11 Telephone Sravan [facility] 1.2.840.114 10 [id number] Univers 00:00:00 00:00:00 Carroll Foster HEALTH 350.1.13.10 [place] of [place] [id number] [address] OFFICE [facility] 2022-05-09 2022-05-09 Hospital VANI Bardales 1.2.481.104 [id number] Univers 15:15:00 19:18:00 Encounter Da [place] 350.1.13.10 ity of [facility] 4.2.7.2.686 Michael as [id number] [address] 2022-05-09 2022-05-09 Emergency X JESUS MANUEL [facility] ERT [id number] Univers 12:13:00 15:15:00 FRANCE cabral [facility] 2022-05-09 2022-05-09 Emergency X JESUS MANUEL [facility] ERT [id number] Univers 12:13:00 15:15:00 FRANCE cabral [facility] 2022-05-09 2022-05-09 Emergency France Ken [facility] 1.2.8 40.114 [id number] Univers 12:13:00 15:15:00 Da Bardales 350.1.13.10 ity of [place].7.2.[place] [id number] [place] [address] [address] 2022-04-29 2022-04-29 Outpatient R SRAVAN [facility] [id number] Univers 10:30:00 11:51:41 CARROLL [facility] 2022-04-29 2022-04-29 [facility]ine [facility] 1.2.131.474 [id number] Univers 10:30:00 11:51:41 Carroll Foster HEALTH 350.1.13.10 ity of Visit [place] [id number] [address] OFFICE [facility] 2022-04-15 2022-04-15 [facility] 1.2.767.382 [id number] Univers 00:00:00 00:00:00 Secure Msg Carroll Foster HEALTH 350.1.13.10 [place] [id number] [address] OFFICE [facility] 2022-04-07 2022-04-07 [facility] 1.2.821.306 [id number] Univers 00:00:00 00:00:00 Secure Msg Carroll Foster HEALTH 350.1.13.10 [place] [id number] [address] OFFICE [facility] 2022-04-03 2022-04-03 Cq Developer 1, Ramiro Mfm Us Room [facility] 1.2 .840.114 [id number] Univers 10:00:00 11:17:14 [facility] 350.1. 13.10 ity of [place] [id number] [address] OFFICE [facility] 2022-04-03 2022-04-03 Outpatient P ABE [facility] [id number] Univers 10:00:00 10:00:00 EDUARDO [facility] 2022-04-01 2022-04-01 Outpatient R SRAVAN [facility] [id number] Univers 11:00:00 14:13:36 CARROLL [facility] 2022-04-01 2022-04-01 Routine Sravan [facility] 1.2.038.342 [id number] Univers 09:45:00 12:52:51 Carroll Foster HEALTH 350.1.13.10 ity of Visit [place] [id number] [address] OFFICE [facility] 2022-04-01 2022-04-01 Cq Developer Draw, Clc-Bls Lab [facility] 1.2.8 40.114 [id number] Univers 11:00:00 11:15:00 Visit Carroll Hinson HEALTH 350.1.13 .10 ity of [place] [id number] [address] 2022-03-17 2022-03-17 Patient Sravan [facility] 1.2.114.397 [id number] Univers 00:00:00 00:00:00 Secure Msg Carroll Foster HEALTH 350.1.13.10 [place]y of [place] [id number] [address] OFFICE [facility] 2022-03-02 2022-03-02 Cq Developer Draw, Clc-Bls Lab [facility] 1.2.8 40.114 [id number] [facility] 10:45:00 11:00:00 Visit Carroll Hinson HEALTH 350.1.13 .10 ity of [place] [id number] [address] OFFICE [facility] 2022-03-02 2022-03-02 Outpatient R SRAVAN [facility] [id number] Univers 09:30:00 10:32:09 CARROLL ity of [facility] 2022-03-02 2022-03-02 Routine Sravan [facility] 1.2.706.971 [id number] Univers 09:30:00 10:32:09 Carroll Foster HEALTH 350.1.13.10 ity of Visit [place] [id number] [address] OFFICE [facility] 2022-03-01 2022-03-02 Emergency X Candy BYERS [facility] ERT [id number] Univers 23:21:00 02:52:00 ity of [facility] 2022-03-01 2022-03-02 Emergency Candy Byers [facility] 1.2.840.114 [id number] Univers 23:21:00 02:52:00 Mónica ARTEAGA 350.1.13.10 i ty of [facility] [place] [id number] [address] 2022-03-02 2022-03-02 Patient [facility] 1.2.514.627 [id number] [id number] Univers 00:00:00 00:00:00 Secure Carroll [employer] HEALTH 350.1.13.10 [place] [id number] [address] OFFICE [facility] 2022-02-25 2022-02-25 Emergency [facility] ERT [id number] Univers 09:18:00 09:57:00 YOKO ity of [facility] 2022-02-25 2022-02-25 Emergency [facility] 1.2.132.345 [id number] Univers 09:18:00 09:57:00 Yoko ARTEAGA 350.1.13.10 i ty of [facility] 4.2.7.2.[place] [id number] [address] 2022-02-25 2022-02-25 Patient Sravan [facility] 1.2.546.329 [id number] Univers 00:00:00 00:00:00 Secure Msg Malaven D HEALTH 350.1.13.10 it[place] [id number] [address] OFFICE [facility] 2022-02-25 2022-02-25 Telephone Sravan [facility] 1.2.840.114 [id number] Univers 00:00:00 00:00:00 Carroll D HEALTH 350.1.13.10 [place] [id number] [address] OFFICE [facility] 2022-02-23 2022-02-23 Patient Sravan [facility] 1.2.984.658 [id number] Univers 00:00:00 00:00:00 Secure Msg [place] Foster HEALTH 350.1.13.10 [place] [id number] [address] [facility]ICE [facility] 2022-02-09 2022-02-09 Patient Sravan [facility] 1.2.530.538 [id number] Univers 00:00:00 00:00:00 Secure Msg [place] Foster HEALTH 350.1.13.10 [place] [id number] [address] [facility] 2022-02-05 2022-02-05 Patient Sravan [facility] 1.2.120.117 [id number] Univers 00:00:00 00:00:00 Secure Msg [place] Foster HEALTH 350.1.13.10 [place] [id number] [address] [facility] 2022-02-02 2022-02-02 Cq Developer Draw, Clc-Bls Lab [facility] 1.2.8 40.114 [id number] Univers 10:15:00 10:47:18 Visit Carroll Hinson HEALTH 350.1.13 .10 [place] [id number] [address] [facility] 2022-02-02 2022-02-02 Outpatient R [facility]RAVAN [facility] [id number] Univers 09:15:00 10:03:21 [place] ity of [facility] 2022-02-02 2022-02-02 [facility] 1.2.746.577 [id number] Univers 09:15:00 10:03:21 Carroll Foster HEALTH 350.1.13.10 ity of Visit [place] [id number] [address] [facility] 2022-02-02 2022-02-02 Orders Doctor LUDWIG 1.2.840.114 [id number] Univers 00:00:00 00:00:00 Only Unassigned, RAKEL 350.1.13.10 ity of [place] [facility] 4.2.7.2.686 Michael as [id number] [address] 2022-01-29 2022-01-29 Patient ASAEL Hinson 1.2.209.673 [id number] Univers 00:00:00 00:00:00 Secure Msg [place] Foster HEALTH 350.1.13.10 [place] [id number] [address] OFFICE BUILDING 2022-01-29 2022-01-29 Letter Sravan [facility] 1.2.652.664 [id number] Univers 00:00:00 00:00:00 (Out) Carroll Kristin HEALTH 350.1.13.10 [place] [id number] [address] [facility]ICE [facility] 2022-01-20 2022-01-20 Patient Sravan [facility] 1.2.229.574 [id number] Univers 00:00:00 00:00:00 Secure Msg [place] Foster HEALTH 350.1.13.10 [place] [id number] [address] OFFICE BUILDING 2022-01-20 2022-01-20 Gallo Hinson [facility] 1.2.442.381 [id number] Univers 00:00:00 00:00:00 (Out) [place] Kristin HEALTH 350.1.13.10 [place] [id number] [address] OFFICE BUILDING 2022-01-19 2022-01-19 Cq Developer Draw, Clc-Bls Lab [facility] 1.2.8 40.114 [id number] Univers 11:00:00 11:15:00 Visit Unknown, Attending HEALTH 350.1.13.10 [place] [id number] [address] OFFICE BUILDING 2022-01-19 2022-01-19 Outpatient R SRAVAN [facility] [id number] Univers 09:45:00 10:44:37 C[place] ity [facility] 2022-01-19 2022-01-19 Routine Sravan [facility] 1.2.275.263 [id number] Univers 09:45:00 10:44:37 [place] D HEALTH 350.1.13.10 ity of [place] [id number] [address] [address] OFFICE BUILDING 2022-01-19 2022-01-19 [facility] [id number] Univers 09:45:00 09:45:00 CARROLL ity [facility] 2022-01-06 2022-01-06 [facility] 1.2.082.565 [id number] Univers 00:00:00 00:00:00 Secure Msg Carroll D HEALTH 350.1.13.10 [place] [id number] [address] OFFICE BUILDING 2022-01-02 2022-01-02 Telephone Sravan [facility] 1.2.840.114 [id number] Univers 00:00:00 00:00:00 Carroll D HEALTH 350.1.13.10 [place] [id number] [address] OFFICE BUILDING 2021-12-30 2021-12-30 Outpatient R ERA [facility] [id number] Univers 10:30:00 11:53:24 QAMAR ity [facility] 2021-12-30 2021-12-30 Office Era [facility] 1.2.400.388 [id number] Univers 10:30:00 11:53:24 Visit Qamar HEALTH 350.1.13.10 it y [place] [id number] [address] OFFICE BUILDING 2021-12-28 2021-12-28 Patient Sravan [facility] 1.2.074.259 [id number] Univers 00:00:00 00:00:00 Secure Msg Carroll D HEALTH 350.1.13.10 [place] [phone] [address] OFFICE [facility] 2021-12-26 2021-12-26 Patient ASAEL Hinson 1.2.771.120 [id number] Univers 00:00:00 00:00:00 Secure Msg Carroll Foster HEALTH 350.1.13.10 [place] [phone] [address] OFFICE [facility] 2021-12-26 2021-12-26 Patient Sravan [facility] 1.2.540.000 [id number] Univers 00:00:00 00:00:00 Secure Msg Carroll Foster HEALTH 350.1.13.10 [place] [id number] [address] OFFICE [facility] 2021-12-26 2021-12-26 Telephone Sravan [facility] 1.2.840.114 [id number] Univers 00:00:00 00:00:00 Carroll Foster [facility] 350.1.13.10 it[place] [phone] [address] 2021-12-25 2021-12-25 Cq Developer Draw, Clc-Bls Lab [facility] 1.2.8 40.114 [id number] Univers 10:45:00 11:00:00 Visit Carroll Hinsno [facility] 350.1.13 .10 it[place] [id number] [address] OFFICE [facility] 2021-12-25 2021-12-25 Outpatient R SRAVAN DCNY [facility] [id number] Univers 09:00:00 10:31:55 CARROLL ity of [facility] 2021-12-25 2021-12-25 Initial Sravan [facility] 1.2.336.372 [id number] Univers 09:00:00 10:31:55 Carroll Kristin HEALTH 350.1.13.10 ity of Visit [place] [id number] [address] OFFICE [facility] 2021-12-25 2021-12-25 Outpatient R SRAVAN [facility] [id number] Univers 09:00:00 10:31:55 CARROLL [facility] 2021-12-25 2021-12-25 Orders Doctor VANI 1.2.840.114 [id number] Univers 00:00:00 00:00:00 Only Unassigned, RAKEL 350.1.13.10 ity of [place] [facility] 4.2.7.2.686 Michael as [phone] [address] 2021-12-25 2021-12-25 Letter Sravan [facility] 1.2.373.164 [id number] Univers 00:00:00 00:00:00 (Out) Carroll Foster [facility] 350.1.13.10 it[place] [id number] [address] OFFICE [facility] 2021-12-18 2021-12-18 Outpatient Gregoria CASTELLANOS [facility] [id number] Univers 08:00:00 08:00:00 ION [facility] 2021-12-17 2021-12-17 Telephone Sravan [facility] 1.2.840.114 [id number] Univers 00:00:00 00:00:00 Carroll Foster [facility] 350.1.13.10 it[place] [id number] [address] OFFICE [facility] 2021-12-11 2021-12-11 Patient Eris Queta [facility] 1.2.520.125 [id number] Univers 00:00:00 00:00:00 Secure Msg Cam [place] 350.1.13.10 ity of [place] [phone] La dical [address] 2021-11-22 2021-11-22 Laboratory Only, Ang Db Test [facility] 1.2.8 40.114 [id number] Univers 14:00:00 14:15:00 Only Loly Luong [facility] 350.1.13.10 ity of [place] 4.2.7.2.686 Michael as VALE?BLEA [phone] La dical KNEY [address] MEDICAL OFFICE BUILDING 2021-11-22 2021-11-22 Outpatient Gregoria LUONG [facility] [id number] Univers 14:00:00 14:14:27 LOLY itedwin [facility] 2021-11-22 2021-11-22 Orders Doctor VANI 1.2.840.114 [id number] Univers 00:00:00 00:00:00 Only Unassigned, RAKEL 350.1.13.10 ity of [place] [facility] 4.2.7.2.686 Michael as [phone] [address] 2021-10-28 2021-10-28 Outpatient ULI Castro, HCACL OUTD G00 [id number] [facility] 09:12:00 09:12:[address] 2021-10-27 2021-10-27 Orders Doctor LUDWIG 1.2.840.114 [id number] Univers 00:00:00 00:00:00 Only Unassigned, RAKEL 350.1.13.10 [facility] 4.2.7.2.686 [place] as [phone] [address] 2021-10-22 2021-10-22 Outpatient Gregoria CASTELLANOS [facility] [id number] Univers 15:00:00 16:05:14 ION marianna [facility] 2021-10-22 2021-10-22 Office Emanuel [facility] 1.2.515.542 [id number] Univers 15:00:00 16:05:14 Visit Ion ARTEAGA 350.1.13.10 i ty [facility] 4.[place] [id number] La nuha [facility] [address] [facility] 2021-10-22 2021-10-22 Outpatient Gregoria CASTELLANOS [facility] [id number] Univers 15:00:00 16:05:14 ION cabral [facility] 2021-10-22 2021-10-22 Cq Developer 2, Adc Lab [facility] 1.2.840.114 [id number] Univers 14:30:00 14:45:00 Visit Queta Schulte 350.1.13.10 ity of [place] [phone] La dical NAL [address] [facility] 2021-10-14 2021-10-14 Cq Developer 2, Adc Lab [facility] 1.2.840.114 [id number] [facility] 10:00:00 10:15:00 Visit Queta Schulte 350.1.13.10 ity of [place] [phone] La dical NAL [address] [place] [address] 2021-10-14 2021-10-14 Outpatient R ERIS QUETA [facility] [id number] Univers 10:00:00 10:00:00 ity of [facility] 2021-10-09 2021-10-09 Cq Developer 2, Adc Lab [place] 1.2.840.114 [id number] Univers 14:15:00 14:30:00 Visit Queta Schulte 350.1.13.10 it[facility] 4.2.7.2.[place] [phone] La dictor ZAMORA [address] [place] [address] 2021-10-09 2021-10-09 Cq Developer 2, Adc Lab [place] 1.2.840.114 [id number] [facility] 14:15:00 14:30:00 Visit Queta Schulte 350.1.13.10 ity of [place] [id number] La dical NAL [address] [place] [address] 2021-10-09 2021-10-09 Outpatient R QUETA SCHULTE [facility] [id number] Univers 14:15:00 14:15:00 ity of [facility] 2021-10-09 2021-10-09 Office Queta Schulte [facility] 1.2.164.086 [id number] Univers 13:15:00 14:13:05 Visit Serg AMAYAROXY 350.1.13.10 i ty of [place].2.[place] [phone] La dictor NAL [address] [facility] 2021-10-09 2021-10-09 Outpatient R QUETA SCHULTE [facility] [id number] Univers 13:15:00 14:13:05 ity of [facility] 2021-10-09 2021-10-09 Outpatient R QUETA SCHULTE [facility] [id number] Univers 13:15:00 14:13:05 ity of [facility] 2021-10-09 2021-10-09 Outpatient R QUETA SCHULTE [facility] [id number] Univers 13:15:00 13:15:00 ity of [facility] 2021-10-09 2021-10-09 [facility] 1.2.466.923 [id number] Univers 00:00:00 00:00:00 Secure Msg Cam [place] 350.1.13.10 ity of [place] [id number] [address] 2021-10-06 2021-10-06 Orders Doctor VANI 1.2.840.114 [id number] Univers 00:00:00 00:00:00 Only Unassigned, RAKEL 350.1.13.10 ity of [place] [facility] 4.2.7.2.686 Michael as [id number] [address] 2021-09-29 2021-09-29 Telephone Queta Schulte [facility] 1.2.840.114 [id number] Univers 00:00:00 00:00:00 Cam [place] 350.1.13.10 i ty of [place] 4.[place].2.[place] [id number] [address] 2021-09-26 2021-09-26 [facility] 1.2.986.532 [id number] Univers 09:00:00 11:25:00 Cam [place] 350.1.13.10 i ty of [place].7.2.[place] [id number] [address] 2021-09-26 2021-09-26 Outpatient R QUETA SCHULTE [facility] 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 [id number] Univers 07:14:00 11:02:00 ity of [facility] 2021-09-26 2021-09-26 Hospital Queta Schulte [facility] 1.2.840.114 [id number] Univers 07:14:00 11:02:00 Encounter Serg ARTEAGA 350.1.13.10 ity of [place] 4.[place].7.2.[place]ICAL [phone] [facility] [address] 2021-09-26 2021-09-26 Orders Doctor VANI 1.2.840.114 [id number] Univers 00:00:00 00:00:00 Only Unassigned, RAKEL 350.1.13.10 ity of [place] [facility] 4.2.7.2.686 Michael as [phone] [facility] [address] 2021-09-26 2021-09-26 Telephone Queta Schulte [facility] 1.2.840.114 [id number] Univers 00:00:00 00:00:00 Cam CHANDL[place] 350.1.13.10 i ty of [place] 4.[place].2.[place] [phone] La dical NAL [address] [facility] 2021-09-25 2021-09-25 Cq Developer Pattie, Adc Lab Main [facility] 1.2.8 40.114 [id number] Univers 13:15:00 13:30:00 Visit Vivian Schultelino ARTEAGA 350.1.13.10 ity [facility] 4.2.7.2.[place] [phone] La dical NAL [address] [facility] 2021-09-25 2021-09-25 Outpatient R QUETA SCHULTE [facility] [id number] Univers 13:15:00 13:15:00 ity of [facility] 2021-09-25 2021-09-25 Laboratory Only, Adc Test [facility] 1.2.840. 114 [id number] Univers 13:00:00 13:15:00 Only Vivian Schultelino ARTEAGA 350.1.13.10 ity of [facility] 4.2.7.2.[place] [phone] [facility] [address] 2021-09-25 2021-09-25 Outpatient R QUETA SCHULTE [facility] [id number] Univers 13:00:00 13:00:00 ity of [facility] 2021-09-25 2021-09-25 Orders Doctor VANI 1.2.840.114 [id number] Univers 00:00:00 00:00:00 Only Unassigned, RAKEL 350.1.13.10 ity of [place] [facility] 4.2.7.2.686 Michael as [phone] [facility] [address] 2021-09-22 2021-09-22 Outpatient R QUETA SCHULTE [facility] [id number] Univers 09:30:00 10:20:27 ity of [facility] 2021-09-22 2021-09-22 Office Eris [facility] 1.2.814.251 [id number] Univers 09:30:00 10:20:27 Visit Cam [place] 350.1.13.10 i ty of [place].2.[place] [phone] La dic[address] 2021-09-22 2021-09-22 Prep For Queta Schulte [facility] 1.2.840.114 [id number] Univers 00:00:00 00:00:00 Surgery Cam ANGLEROXY 350.1.13.10 i ty of [place].2.[place] [phone] La dic[address] 2021-09-20 2021-09-21 Emergency X [facility] ERT [id number] Univers 21:44:00 01:17:00 SCKILI ity [facility] 2021-09-20 2021-09-21 Emergency [facility] 1.2.751.239 [id number] Univers 21:44:00 01:17:00 Utjeanie S [place] 350.1.13.10 ity of [place] 4.2.7.2.[place] [id number] [facility] [address] 2021-09-20 2021-09-21 Emergency X [facility] ERT [id number] Univers 21:44:00 01:17:00 SCFELIPELI ity [facility] 2021-09-16 2021-09-16 Outpatient R QUETA SCHULTE [facility] [id number] Univers 14:45:00 14:45:00 ity [facility] 2021-09-16 2021-09-16 Outpatient R QUETA SCHULTE [facility] [id number] Univers 10:00:00 10:44:33 ity of [facility] 2021-09-16 2021-09-16 Office Eris [facility] 1.2.539.191 [id number] Univers 10:00:00 10:44:33 Visit Cam [place] 350.1.13.10 i ty [facility] 4.2.7.2.[place] [phone] La dic[address] 2021-09-16 2021-09-16 Outpatient R QUETA SCHULTE [facility] [id number] Univers 10:00:00 10:44:33 ity of [facility] 2021-09-09 2021-09-09 Outpatient R ERIS [facility] [id number] Univers 14:15:00 14:15:00 ity [facility] 2021-09-09 2021-09-09 Outpatient R QUETA SCHULTE [facility] [id number] Univers 13:00:00 13:00:[facility] 2021-09-09 Emergency X LUCINDABERTHABELEN DC[facility] ERT [id number] Univers 19:47:00 01:38:00 JINNYLI [facility] 2021-09-08 2021-09-09 Emergency Shelbi Miller [facility] 1.2.840 .114 [id number] Univers 19:47:00 01:38:00 Tia Avery S [place] 350.1.13.10 ity [place].2.[place] [id number] [address] 2021-09-09 2021-09-09 Telephone Eris [facility] 1.2.840.114 [id number] Univers 00:00:00 00:00:00 Cam [place] 350.1.13.10 i ty of [place] 4[place].2.[place] [id number] [address] 2021-09-08 2021-09-08 Office SchulteVivianlino Ulrich [facility] 1.2.840.114 [id number] Univers 08:30:00 09:27:53 Visit BrodieIon lynn [place] 350.1.13.10 ity [facility] 4.2.7.[place] [id number] [address] 2021-09-08 2021-09-08 Outpatient R EMANUEL [facility] [id number] Univers 08:30:00 09:27:53 [facility] 2021-09-08 2021-09-08 Outpatient R EMANUEL [facility] [id number] Univers 08:30:00 08:30:00 [facility] 2021-09-03 2021-09-03 Case Americonoryjerrica [facility] 1.2.840.114 [id number] Univers 00:00:00 00:00:00 Management Erika DENNY 350.1.13.10 ity of [place] [id number] [address] [place] [address] 2021-09-02 2021-09-02 Office Queta Schulte [facility] 1.2.764.797 [id number] Univers 13:00:00 13:50:26 Visit Serg ARTEAGA 350.1.13.10 i ty [facility] 4.2.7.[place] [phone] [address] 2021-09-02 2021-09-02 Outpatient R QUETA SCHULTE [facility] [id number] Univers 13:00:00 13:50:26 ity [facility] 2021-09-02 2021-09-02 Outpatient R QUETA SCHULTE [facility] [id number] Univers 13:00:00 13:00:00 ity of [facility] 2021-09-01 2021-09-01 Case Queta Schulte [facility] 1.2.770.823 [id number] Univers 00:00:00 00:00:00 Management Cam [place] 350.1.13.10 ity of [place].2.[place] [id number] La dical NAL [address] [place] [address] 2021-09-01 2021-09-01 Telephone Queta Schulte 1.2.840.114 [id number] Univers 00:00:00 00:00:00 Cam [place] 350.1.13.10 i ty [place] 4.[place].2.[place] [phone] La dical NAL [address] [place] [address] 2021-09-01 2021-09-01 Telephone Queta Schulte [facility] 1.2.840.114 [id number] Univers 00:00:00 00:00:00 Cam [place] 350.1.13.10 i ty [place] 4[place].2.[place] [id number] [address] 2021-08-28 2021-08-28 Office Queta Schulte [facility] 1.2.974.669 [id number] Univers 08:15:00 09:23:25 Visit Cam [place] 350.1.13.10 i ty of [place] 4.[place].7.2.[place] [id number] [address] 2021-08-28 2021-08-28 Outpatient R QUETA SCHULTE [facility] [id number] Univers 08:15:00 09:23:25 ity of [facility] 2021-08-28 2021-08-28 Outpatient R ERIS QUETA [facility] [id number] Univers 08:15:00 08:15:00 ity of [facility] 2021-08-28 2021-08-28 Telephone Queta Schulte [facility] 1.2.840.114 [id number] Univers 00:00:00 00:00:00 Cam [place] 350.1.13.10 i ty of [place].2.[place] [phone] La dicks NAL [address] [place] [address] 2021-08-28 2021-08-28 Telephone Queta Schulte [facility] 1.2.840.114 [id number] Univers 00:00:00 00:00:00 Serg ARTEAGA 350.1.13.10 i ty of [place].2.[place] [id number] La dic[address] 2021-08-28 2021-08-28 Telephone Queta Schulte [facility] 1.2.840.114 [id number] Univers 00:00:00 00:00:00 Serg ARTEAGA 350.1.13.10 i ty [place] 4.[place].2.[place] [id number] [address] 2021-08-27 2021-08-27 Emergency X SINGER [facility] ERT [id number] Univers 08:28:00 08:37:00 RUSSEL cabral [facility] 2021-08-27 2021-08-27 Emergency Singer [facility] 1.2.374.114 [id number] Univers 08:28:00 08:37:00 Russel ARTEAGA 350.1.13.10 i ty of [place] 4.2.7.2.[place] [id number] [address] 2021-08-27 2021-08-27 Emergency X SINGER [facility] ERT [id number] Univers 08:28:00 08:37:00 RUSSEL juaresedwin [facility] 2021-08-27 2021-08-27 Tele[facility] 1.2.840.114 [id number] Univers 00:00:00 00:00:00 Serg ARTEAGA 350.1.13.10 i ty of [place] [id number] La dic[address] 2021-08-25 2021-08-25 Telephone Queta Schulte [place] 1.2.840.114 [id number] Univers 00:00:00 00:00:00 Serg DENNY 350.1.13.10 it y [place] [id number] [address] [place] [address] 2021-08-25 2021-08-25 Telephone Eris [facility] 1.2.840.114 [id number] Univers 00:00:00 00:00:00 Cam [place] 350.1.13.10 i ty of [place].2.[place] [phone] La dical [address] 2021-08-22 2021-08-22 Outpatient R ERIS [facility] [id number] Univers 14:45:00 15:15:39 ity of [facility] 2021-08-22 2021-08-22 Routine Eris [facility] 1.2.840.114 [id number] Univers 14:45:00 15:15:39 Cam ESDRAS 350.1.13.10 i ty of [place] [id number] [address] [place] [address] 2021-08-22 2021-08-22 Telephone Eris [facility] 1.2.840.114 [id number] Univers 00:00:00 00:00:00 Serg DENNY 350.1.13.10 it y [place] [id number] [address] [place] [address] 2021-08-22 2021-08-22 Orders Doctor VANI 1.2.840.114 [id number] Univers 00:00:00 00:00:00 Only Unassigned, RAKEL 350.1.13.10 ity of [place] [facility] 4.2.7.2.686 Michael as [phone] [facility] [address] 2021-08-19 2021-08-19 Outpatient R ERIS [facility] [id number] Univers 14:49:56 23:59:00 ity of [facility] 2021-08-19 2021-08-19 Hospital Eris [facility] 1.2.840.114 [id number] Univers 14:49:56 23:59:00 Encounter Serg ARTEAGA 350.1.13.10 ity of [place] [id number] [facility] [address] 2021-08-12 2021-08-12 [facility] 1.2.840.114 [id number] Univers 00:00:00 00:00:00 Management Erika DENYN 350.1.13.10 it[place] [id number] [address] [place] [address] 2021-08-11 2021-08-11 Patient Queta Schulte 1.2.840.114 [id number] Univers 00:00:00 00:00:00 Secure Msg Serg DENNY 350.1.13.10 it[place] [id number] [address] [place] [address] 2021-08-08 2021-08-08 Outpatient R QUETA SCHULTE [facility] [id number] Univers 09:00:00 10:25:50 ity of [facility] 2021-08-08 2021-08-08 Initial Queta Schulte 1.2.840.114 [id number] Univers 09:00:00 10:25:50 Serg DENNY 350.1.13.10 i ty of [place] [id number] [address] [place] [address] 2021-08-08 2021-08-08 Patient Queta Schulte 1.2.840.114 [id number] Univers 00:00:00 00:00:00 Secure Msg Serg DENNY 350.1.13.10 it[place] [id number] [address] [place] [address] 2021-08-08 2021-08-08 Refill Queta Schulte 1.2.840.114 [id number] Univers 00:00:00 00:00:00 Serg DENNY 350.1.13.10 it y [place] [id number] [address] [place] [address] 2021-08-08 2021-08-08 Orders Doctor VANI 1.2.840.114 [id number] Univers 00:00:00 00:00:00 Only Unassigned, RAKEL 350.1.13.10 ity of [place] [facility] 4.2.7.2.686 Michael as [phone] [facility] [address] 2021-08-01 2021-08-01 Telephone Queta Schulte [facility] 1.2.840.114 [id number] Univers 00:00:00 00:00:00 Serg ARTEAGA 350.1.13.10 i ty of [place] [phone] La dical NAL [address] BUILDING 2021-07-23 2021-07-23 Laboratory Only, Ang Db Test [facility] 1.2.8 40.114 [id number] Univers 09:30:00 09:45:00 Only Gomez [facility] 350.1.13.10 ity of [place] 4.2.7.2.686 Michael as VALE?BLEA [id number] La dical KNEY [address] MEDICAL OFFICE BUILDING 2021-07-23 2021-07-23 Outpatient R GOMEZ [facility] [id number] Univers 09:30:00 09:33:55 SUZETTE cabral o f [facility] 2021-07-09 2021-07-09 Outpatient EKHAESE, MHBL EILEEN 7502 MHBL 11:30:00 23:59:00 OBONORUMA 2021-07-05 2021-07-05 Emergency X Candy BYERS [facility] ERT [id number] Univers 09:46:00 11:02:00 ity of [facility] 2021-07-05 2021-07-05 Emergency Candy Byers [facility] 1.2.840.114 [id number] Univers 09:46:00 11:02:00 Mónica ARTEAGA 350.1.13.10 i ty [facility] [place] [facility] [phone] [facility] [address] 2021-06-30 2021-06-30 Emergency X SINGER [facility] ERT [id number] Univers 14:46:00 18:30:00 RUSSEL cabral of [facility] 2021-06-30 2021-06-30 Emergency Singer [facility] 1.2.859.517 [id number] Univers 14:46:00 18:30:00 Russel ARTEAGA 350.1.13.10 i ty of [place] 4.2.7.2.[address] [facility] [phone] [place] [id number] 2021-06-30 2021-06-30 Orders Doctor VANI 1.2.840.114 [id number] Univers 00:00:00 00:00:00 Only Unassigned, RAKEL 350.1.13.10 ity of [place] [facility] 4.2.7.2.686 Michael as [phone] [facility] [address] 2021-05-21 2021-05-21 Laboratory Only, Ang Db Test [facility] 1.2.8 40.114 [id number] Univers 12:15:00 12:30:00 Only Nagi Yeh 350.1.13.10 ity of [place] 4.2.7.2.686 Michael as VALE?BLEA [phone] [address] MEDICAL OFFICE BUILDING 2021-05-21 2021-05-21 Outpatient R RAO [facility] [id number] Univers 12:15:00 12:10:37 NAGI [facility] 2021-03-22 2021-03-22 Emergency X TAZ [facility] ERT [id number] Univers 15:56:00 19:03:00 YOKO [facility] 2021-03-22 2021-03-22 Emergency [place] Ken [facility] 1.2.8 40.114 [id number] Univers 15:56:00 19:03:00 Yoko Baker 350.1.13.10 ity of [place] 4.2.7.2.686 [facility] [id number] [address] 2021-01-31 2021-01-31 Outpatient EKHAESE, MHSE EILEEN [id number] MH 00:00:00 00:00:00 OBONORUMA [facility] 2021-01-19 2021-01-19 Emergency Rao [facility] 1.2.840.114 [id number] Univers 10:40:00 13:32:00 Nagi Arteaga 350.1.13.10 i ty of [place] 4.2.7.2.686 [facility] [phone] [place] [id number] 2021-01-13 2021-01-14 Inpatient EKHAESE, [facility] [id number] [place] 00:00:00 00:00:00 OBONORUMA [address] 2021-01-09 2021-01-09 Outpatient EKHAESE, [facility] [id number] [place] 00:00:00 00:00:00 OBONORUMA [address] 2020-12-07 2020-12-07 Letter VANI Zhou 1.2.840.114 [id number] [facility] 00:00:00 00:00:00 (Out) Sumaya [place] 350.1.13.10 it [facility] 4.2.7.2.686 Michael as [phone] [facility] [address] 2020-12-05 2020-12-05 Outpatient Gregoria SUGGS [facility] [id number] [facility] 18:00:00 18:00:00 HERNÁN cabral [facility] 2020-11-22 2020-11-22 Outpatient SHARRON, SE EILEEN 7501 07:00:00 23:59:[address] [facility] 2020-10-15 2020-10-15 Cq Developer Pattie, Juan Pablo Lab Main [facility] 1.2.8 40.114 [id number] Univers 11:32:58 11:47:58 Visit Ion Castellanos 350.1.13.10 ity [facility] [place] [phone] La dical nal 353 [facility] 2020-10-15 2020-10-15 Office [facility] 1.2.537.622 [id number] Univers 10:12:05 11:10:20 Visit Ion Arteaga 350.1.13.10 i ty [facility] [place] [phone] La dical nal 134 [facility] 2020-10-15 2020-10-15 Outpatient Gregoria CASTELLANOS [facility] [id number] Univers 10:30:00 10:30:00 ION cabral [facility] 2020-10-152020-10-15 Orders Doctor VANI 1.2.840.114 [id number] Univers 00:00:00 00:00:00 Only Unassigned, RAKEL 350.1.13.10 ity of [place] [facility] 4.2.7.2.686 Michael as [phone] [address] 2020-08-28 2020-08-28 Outpatient EKHAESE, BL EILEEN 7500 [facility] 05:12:00 08:46:00 OBONORUMA 2020-08-26 2020-08-26 Telephone [facility] 1.2.840.114 [id number] Univers 00:00:00 00:00:00 Ion Arteaga 350.1.13.10 i ty [place] [phone] La dical nal 134 [facility] 2020-08-26 2020-08-26 Patient [facility] 1.2.042.527 [id number] Univers 00:00:00 00:00:00 Secure Msg Ion Arteaga 350.1.13.10 it[place] [phone] La dical nal 134 [facility] 2020-08-09 2020-08-09 Emergency Candy Byers [facility] 1.2.840.114 [id number] Univers 10:43:00 12:46:00 Mónica Arteaga 350.1.13.10 i [place] [phone] [facility] [address] 2020-08-09 2020-08-09 Orders Doctor VANI 1.2.840.114 [id number] Univers 00:00:00 00:00:00 Only Unassigned, RAKEL 350.1.13.10 ity of [place] [facility] 4.2.7.2.686 Michael as [phone] [address] 2020-07-10 2020-07-10 Telephone [facility] 1.2.595.813 [id number] Univers 00:00:00 00:00:00 [facility] 350.1.13.10 i ty [place] [phone] [address] Office Building 2020-07-09 2020-07-09 Patient Freddie [facility] 1.2.840.114 [id number] Univers 00:00:00 00:00:00 Outreach Feliciano PRIMARY 350.1.13.10 i ty of [place].2.[place] [phone] [address] 2020-07-08 2020-07-08 Office [facility] 1.2.840.114 [id number] Univers 09:32:02 14:42:59 Visit [facility] 350.1.13.10 i ty [place] [phone] [address] Office Building 2020-07-08 2020-07-08 Outpatient R YOSI [facility] [id number] Univers 09:00:00 09:00:00 [facility] ity o f [facility] 2020-05-28 2020-05-28 Outpatient R [facility] [id number] Univers 13:00:00 13:00:00 ity of [facility] 2020-04-29 2020-04-29 Orders Doctor VANI 1.2.840.114 [id number] Univers 00:00:00 00:00:00 Only Unassigned, RAKEL 350.1.13.10 ity of [place] [facility] 4.2.7.2.686 Michael as [phone] [address] 2020-03-27 2020-03-27 Outpatient R LATASHA [facility] [id number] Univers 10:00:00 10:00:00 SENDIL ity of [facility] 2020-03-27 2020-03-27 Orders Doctor LUDWIG 1.2.840.114 [id number] Univers 00:00:00 00:00:00 Only Unassigned, RAKEL 350.1.13.10 ity of [place] [facility] 4.2.7.2.686 Michael as [phone] [address] 2020 2020 Orders Doctor LUDWIG 1.2.840.114 [id number] Univers 00:00:00 00:00:00 Only Unassigned, RAKEL 350.1.13.10 ity of [place] [facility] 4.2.7.2.686 Michael as [phone] [facility] [address] 2020-03-13 2020-03-13 Telephone Yosi [facility] 1.2.007.914 [id number] Univers 00:00:00 00:00:00 [facility] 350.1.13.10 i ty [place] [phone] [facility] [address] Office Building 2019-10-22 2019-10-22 Patient Doctor VANI 1.2.840.114 [id number] Univers 00:00:00 00:00:00 Secure Msg Unassigned, RAKEL 350.1.13.10 ity of [place] [facility] 4.2.7.2.686 Michael as [phone] [facility] [address] 2019-10-20 2019-10-20 Laboratory Lab, [facility] 1.2.840.114 [id number] 15:52:57 16:12:57 Only Fam Pob I Health 350.1.13.10 [place] 4.2.7.2.686 Professio [phone] [place] [address] Office Building One 2019-10-20 2019-10-20 Laboratory Lab, [facility] Fam Pob I [facility] 1.2. 840.114 [id number] Univers 15:52:57 16:12:57 Only Ion Castellanos [facility] 350.1.13.10 ity of [place] 4.2.7.2.686 Michael as Professio [phone] La dical formerly [facility] [address] Office Building One 2019-10-20 2019-10-20 Cq Developer 2, [facility] 1.2.840.114 [id number] 13:16:08 13:31:08 Visit [place] 350.1.13.10 [place] 4.2.7.2.686 Professio [phone] [address] [address] 2019-10-20 2019-10-20 Cq Developer 2, [facility] 1.2.840.114 [id number] Univers 13:16:08 13:31:08 Visit Emanuel, Ion [place] 350.1.13.10 ity [place] [phone] La dical nal 353 [facility] 2019-10-20 2019-10-20 Outpatient R [facility] [id number] Univers 13:00:00 13:00:00 ity [facility] 2019-10-17 2019-10-17 Outpatient R [facility] [id number] Univers 13:15:00 13:15:00 ity [facility] 2019-10-16 2019-10-16 Office [facility] 1.2.869.460 [id number] 13:07:05 13:37:05 Visit Ion Amayaton 350.1.13.10 [place] 4.2.7.2.686 Professio [phone] [address] 2019-10-16 2019-10-16 Office [facility] 1.2.957.212 [id number] Univers 13:07:05 13:37:05 Visit Ion [place] 350.1.13.10 i ty [place] [phone] La dical formerly [facility] 134 [facility] 2019-10-16 2019-10-16 [facility] [id number] Univers 13:30:00 13:30:00 ION ity [facility] 2019-09-14 2019-09-14 Office [facility] 1.2.840.114 [id number] Univers 07:58:29 08:40:34 Visit Emilie Amayaton 350.1.13.10 i ty [place] [phone] La dical nal 134 [facility] 2019-09-14 2019-09-14 [id number] Univers 08:30:00 08:30:00 EMILIE cabral [facility] 2019-09-14 2019-09-14 Orders Doctor LUDWIG 1.2.840.114 [id number] Univers 00:00:00 00:00:00 Only Unassigned, RAKEL 350.1.13.10 ity of [facility] 4.2.7.2.686 Michael as [phone] [address] 2019-07-31 2019-07-31 Telephone [facility] 1.2.840.114 [id number] Univers 00:00:00 00:00:00 Emilie Arteaga 350.1.13.10 i [place] [phone] La dic[address] 2019-07-31 2019-07-31 Patient [facility] 1.2.840.114 [id number] Univers 00:00:00 00:00:00 Secure Msg Emilie Arteaga 350.1.13.10 it[place] [phone] La dic[address] 2019-07-27 2019-07-27 Outpatient R [facility] [id number] Univers 10:00:00 10:00:00 [facility] 2019-07-27 2019-07-27 Telemedici [facility] 1.2.840.114 [id number] Univers 08:16:01 08:46:01 ne Visit Emilie Arteaga 350.1.13.10 it[place]2.[place] [phone] [address] 2019-07-03 2019-07-03 Outpatient [facility] [id number] Univers 09:00:00 09:00:00 ION ity [facility] 2019-06-23 2019-06-23 Office [facility] 1.2.840.114 [id number] Univers 08:08:20 14:15:55 Visit Emilie Arteaga 350.1.13.10 i ty of [place].2.[place] [phone] La dic[address] 2019-06-23 2019-06-23 Outpatient [facility] [id number] Univers 08:30:00 08:30:00 EMILIE cabral [facility] 2019-06-19 2019-06-19 Patient [facility] 1.2.840.114 [id number] Univers 00:00:00 00:00:00 Secure Msg Emilie Arteaga 350.1.13.10 it[place] [phone] La dic[address] 2019-05-04 2019-05-04 Office [facility] 1.2.840.114 [id number] Univers 14:09:43 15:25:49 Visit Emilie Arteaga 350.1.13.10 i ty [place].2.[place] [phone] La dic[address] 2019-05-04 2019-05-04 Outpatient [facility] [id number] Univers 14:00:00 15:25:49 EMILIE cabral [facility] 2019-05-04 2019-05-04 Orders Doctor VANI 1.2.840.114 [id number] Univers 00:00:00 00:00:00 Only Unassigned, RAKEL 350.1.13.10 ity [place] [facility] 4.2.7.2.686 Michael as [phone] [address] Results Test Description Test Time Test Comments Results Result Comments Source GALV ONLY - SYPHILIS IGG/IGM 2022-08-12 15:08:55 Test Item Value Reference Range Interpretation Comme nts Syphilis IgG/IgM (test code = Non-reactive Non-reactive 73567-4) JKAE (test code = JAKE) Non-reactive - No serologic evidence of T. pallidum infection. Cannot exclude incubating or early syphilis. Submit a second specimen in 2-4 weeks if syphilis is clinically suspected. Equivocal - Further testing to follow. Reactive - Further testing to follow. Lab Interpretation (test code = Normal 67413-3) [facility] [id number] 15:08:55 Test Item Value Reference Range Interpretation Comments Syphilis IgG/IgM (test Non-reactive Non-reactive code = 43419-3) JAKE (test code = JAKE) Non-reactive - No serologic evidence of T. pallidum infection. Cannot exclude incubating or early syphilis. Submit a second specimen in 2-4 weeks if syphilis is clinically suspected. Equivocal - Further testing to follow. Reactive - Further testing to follow. Lab Interpretation (test Normal code = 19101-5) [facility] (D) IMMUNE [id number] 23:20:39 Test Item Value Reference Range Interpretation Comments RHIG CANDIDATE? No- see comment Patient i s not a (test code = candidate for R hIg- 5188) Patient is Rh Positive.Perfor med at [facility] Laboratory Services - [facility] Blood [address] [place] [address] xa [phone] Free: [phone] A No. [id number] [facility] (D) IMMUNE [id number] 23:20:39 Test Item Value Reference Range Interpretation Comments RHIG CANDIDATE? No- see comment Patient i s not a (test code = candidate for R hIg- 5188) Patient is Rh Positive.Perfor med at [facility] Laboratory Services - [facility] Blood [address] [place] [address] xa [address]Fazk Free: [phone] A No. [id number] [facility] [id number] 22:06:48 Test Item Value Reference Range Interpretation Comments VENOUS BASE EXCESS, -3.5 mEq/L CORD (test code = 0968584698) VENOUS PH, CORD (test 7.32 7.25-7.45 code = 5398985195) VENOUS PC02, CORD 46 See_Comment [Automate d message] The (test code = system which ge nerated 4934358023) this result tra nsmitted reference range : 27 - 49 mmHg. The refer ence range was not used to interpret this result as normal/abnormal . VENOUS PO2, CORD (test 20 See_Comment [Aut omated message] The code = 3334030633) system [facility] generated this result tra nsmitted reference range : 17 - 41 mmHg. The refer ence range was not used to interpret this result as normal/abnormal . VENOUS BICARBONATE, 23 See_Comment [Automa sara message] The CORD (test code = system whi ch generated 0825974545) this result tra nsmitted reference range : 12 - 29 mEq/L. The refe rence range was not used to interpret this result as normal/abnormal . [facility] [id number] 22:06:48 Test Item Value Reference Range Interpretation Comments VENOUS BASE EXCESS, -3.5 mEq/L CORD (test code = 3101085312) VENOUS PH, CORD (test 7.32 7.25-7.45 code = 5993085493) VENOUS PC02, CORD 46 See_Comment [Automate d message] The (test code = system which ge nerated 0253186145) this result tra nsmitted reference range : 27 - 49 mmHg. The refer ence range was not used to interpret this result as normal/abnormal . VENOUS PO2, CORD (test 20 See_Comment [Aut omated message] The code = 7078300312) system [facility] generated this result tra nsmitted reference range : 17 - 41 mmHg. The refer ence range was not used to interpret this result as normal/abnormal . VENOUS BICARBONATE, 23 See_Comment [Automa sara message] The CORD (test code = system [facility] generated 5533683140) this result tra nsmitted reference range : 12 - 29 mEq/L. The refe rence range was not used to interpret this result as normal/abnormal . [facility] [id number] 22:03:15 Test Item Value Reference Range Interpretation Comments BASE EXCESS, CORD -6.6 mEq/L (test code = 0506362659) AC PH, CORD (BEAKER) 7.28 7.18-7.38 (test code = 3540068952) PC02, CORD (test code 44 See_Comment [Auto mated message] The = 2595749762) system which g enerated this result transmit sara reference range : 32 - 66 mmHg. The refer ence range was not used to interpret this result as normal/abnormal . PO2, CORD (test code 22 See_Comment [Autom ated message] The = 0397142300) system which g enerated this result transmit sara reference range : 10 - 30 mmHg. The refer ence range was not used to interpret this result as normal/abnormal . BICARBONATE, CORD 20 See_Comment [Automate d message] The (test code = system which ge nerated this 1808822335) result transmit sara reference range : 17 - 27 mEq/L. The refe rence range was not used to interpret this result as normal/abnormal . [facility] [id number] 22:03:15 Test Item Value Reference Range Interpretation Comments BASE EXCESS, CORD -6.6 mEq/L (test code = 9916719889) AC PH, CORD (BEAKER) 7.28 7.18-7.38 (test code = 5923777227) PC02, CORD (test code 44 See_Comment [Auto mated message] The = 6404202213) system which g enerated this result transmit sara reference range : 32 - 66 mmHg. The refer ence range was not used to interpret this result as normal/abnormal . PO2, CORD (test code 22 See_Comment [Autom ated message] The = 5782223328) system which g enerated this result transmit sara reference range : 10 - 30 mmHg. The refer ence range was not used to interpret this result as normal/abnormal . BICARBONATE, CORD 20 See_Comment [Automate d message] The (test code = system which ge nerated this 4164757750) result transmit sara reference range : 17 - 27 mEq/L. The refe rence range was not used to interpret this result as normal/abnormal . [facility] 1/2 AG-AB WITH [id number] 20:02:37 Test Item Value Reference Range Interpretation Comments HIV 0.09 Negative Semi-quantitative (test code = 57751-6) JAKE (test code = Non-reactive for HIV-1 JAKE) antigen and HIV-1/HIV-2 antibodies. ?No laboratory evidence of HIV infection. ?Repeat in 2-4 weeks if acute HIV infection is suspected. [facility] WITH [id number] 20:02:37 Test Item Value Reference Range Interpretation Comments HIV 0.09 Negative Semi-quantitative (test code = 15470-5) JAKE (test code = Non-reactive for HIV-1 JAKE) antigen and HIV-1/HIV-2 antibodies. ?No laboratory evidence of HIV infection. ?Repeat in 2-4 weeks if acute HIV infection is suspected. [facility] Surface [id number] 19:53:13 Test Item Value Reference Range Interpretation Comments HBsAg Semi-Quantitative (test code = 0.07 Negative 5195-3) [facility] Surface [id number] 19:53:13 Test Item Value Reference Range Interpretation Comments HBsAg Semi-Quantitative (test code = 0.07 Negative 5195-3) [facility] [id number] 19:30:29 Test Item Value Reference Range Interpretation Comments LDH (test code = 0262168888) 157 U/L 120-246 Lab Interpretation (test code = Normal 54374-2) [facility] [id number] 19:30:29 Test Item Value Reference Range Interpretation Comments LDH (test code = 5327697785) 157 U/L 120-246 Lab Interpretation (test code = Normal 16966-5) [facility] with [id number] 19:30:08 Test Item Value Reference Range Interpretation Comments WBC (test code = 8.86 See_Comment [Automated message] 2719-2) The system [employer] generated this result transmitted ref erence range: 4.30 - 1 1.10 10*3/?L. The re ference range was not u sed to interpret this result as normal/abnor mal. RBC (test code = 4.13 See_Comment [Automated message] 198-8) The system [employer] generated this result transmitted ref erence range: 3.93 - 5 .25 10*6/?L. The re ference range was not u sed to interpret this result as normal/abnor mal. HGB (test code = 11.8 g/dL 11.6-15.0 718-7) HCT (test code = 36.6 % 35.7-45.2 4544-3) MCV (test code = 88.6 fL 80.6-95.5 787-2) MCH (test code = 28.6 pg 25.9-32.8 785-6) MCHC (test code = 32.2 g/dL 31.6-35.1 786-4) RDW-SD (test code 44.9 fL 39.0-49.9 = 40654-2) RDW-CV (test code 13.8 % 12.0-15.5 = 788-0) PLT (test code = 234 See_Comment [Automated message] 777-3) The system [employer] generated this result transmitted ref erence range: 166 - 35 8 10*3/?L. The re ference range was not u sed to interpret this result as normal/abnor mal. MPV (test code = 11.6 fL 9.5-12.9 33852-6) NRBC/100 WBC (test 0.0 See_Comment [Automat ed message] code = 0189455786) The syste m which generated this result transmitted ref erence range: 0.0 - 10 .0 /100 WBCs. The refer ence range was not u sed to interpret this result as normal/abnor mal. NRBC x10^3 (test See_Comment [Automated message] code = 2536396442) The syste m which generated this result transmitted ref erence range: 10*3/?L. The reference range was not used to interpr et this result as normal/abnormal . GRAN MAT (NEUT) % 61.0 % (test code = 770-8) IMM GRAN % (test 0.60 % code = 7354188965) LYMPH % (test code 28.1 % = 736-9) MONO % (test code 6.8 % = 5905-5) EOS % (test code = 2.9 % 713-8) BASO % (test code 0.6 % = 706-2) GRAN MAT 5.41 10*3/uL 1.88-7.09 x10^3(ANC) (test code = 9630897501) IMM GRAN x10^3 0.05 10*3/uL 0.00-0.06 (test code = 2613777475) LYMPH x10^3 (test 2.49 10*3/uL 1.32-3.29 code = 731-0) MONO x10^3 (test 0.60 10*3/uL 0.33-0.92 code = 742-7) EOS x10^3 (test 0.26 10*3/uL 0.03-0.39 code = 711-2) BASO x10^3 (test 0.05 10*3/uL 0.01-0.07 code = 704-7) [facility] with [id number] 19:30:08 Test Item Value Reference Range Interpretation Comments WBC (test code = 8.86 See_Comment [Automated message] 2690-2) The system [employer] generated this result transmitted ref erence range: 4.30 - 1 1.10 10*3/?L. The re ference range was not u sed to interpret this result as normal/abnor mal. RBC (test code = 4.13 See_Comment [Automated message] 789-8) The system [employer] generated this result transmitted ref erence range: 3.93 - 5 .25 10*6/?L. The re ference range was not u sed to interpret this result as normal/abnor mal. HGB (test code = 11.8 g/dL 11.6-15.0 718-7) HCT (test code = 36.6 % 35.7-45.2 4544-3) MCV (test code = 88.6 fL 80.6-95.5 787-2) MCH (test code = 28.6 pg 25.9-32.8 785-6) MCHC (test code = 32.2 g/dL 31.6-35.1 786-4) RDW-SD (test code 44.9 fL 39.0-49.9 = 41832-0) RDW-CV (test code 13.8 % 12.0-15.5 = 788-0) PLT (test code = 234 See_Comment [Automated message] 777-3) The system [employer] generated this result transmitted ref erence range: 166 - 35 8 10*3/?L. The re ference range was not u sed to interpret this result as normal/abnor mal. MPV (test code = 11.6 fL 9.5-12.9 67641-1) NRBC/100 WBC (test 0.0 See_Comment [Automat ed message] code = 0419473885) The [employer] which generated this result transmitted ref erence range: 0.0 - 10 .0 /100 WBCs. The refer ence range was not u sed to interpret this result as normal/abnor mal. NRBC x10^3 (test See_Comment [Automated message] code = 2656065335) The syste m which generated this result transmitted ref erence range: 10*3/?L. The reference range was not used to interpr et this result as normal/abnormal . GRAN MAT (NEUT) % 61.0 % (test code = 770-8) IMM GRAN % (test 0.60 % code = 5920883326) LYMPH % (test code 28.1 % = 736-9) MONO % (test code 6.8 % = 5905-5) EOS % (test code = 2.9 % 713-8) BASO % (test code 0.6 % = 706-2) GRAN MAT 5.41 10*3/uL 1.88-7.09 x10^3(ANC) (test code = 8603844202) IMM GRAN x10^3 0.05 10*3/uL 0.00-0.06 (test code = 2329302665) LYMPH x10^3 (test 2.49 10*3/uL 1.32-3.29 code = 731-0) MONO x10^3 (test 0.60 10*3/uL 0.33-0.92 code = 742-7) EOS x10^3 (test 0.26 10*3/uL 0.03-0.39 code = 711-2) BASO x10^3 (test 0.05 10*3/uL 0.01-0.07 code = 704-7) [facility]2023-04-25 19:22:07 Test Item Value Reference Range Interpretation Comments CREATININE (test code = 0.47 mg/dL 0.50-1.04 L 3822039928) eGFR (test code = 156.7 mL/min/1.73m2 8814212874) JAKE (test code = JAKE) Association of Glomerular Filtration Rate (GFR) and Staging of Kidney Disease* + --+ --+ ------+| GFR (mL/min/1.73 m2) ?| With Kidney Damage ?| ?Without Kidney Damage+ --------+ --------+ +| ?>90 ?| ?Stage one ?| ? Normal ?+ ---+ ---+ -------+| ?60-89 ?| ?Stage two ?| ? Decreased GFR ? + --+ --+ ------+| ?30-59 ?| ?Stage three ?| ? Stage three ? + --+ --+ ------+| ?15-29 ?| ?Stage four ? | ? Stage four ?+ ---+ ---+ -------+| ?<15 (or dialysis) ? ?| ?Stage five ? | ? Stage five ?+ ---+ ---+ -------+ *Each stage assumes the associated GFR level [...] or urine or abnormalities in imaging tests). Lab Interpretation Abnormal (test code = 08697-7) [facility] AMINO TRANSFERASE([id number] 19:22:07 Test Item Value Reference Range Interpretation Comments ALTv (test code = 1742-6) 16 U/L 5-35 Lab Interpretation (test code = Normal 80830-3) [facility] (ASPARTATE AMINO TRANSFER)2022-08-11 19:22:07 Test Item Value Reference Range Interpretation Comments AST(SGOT) (test code = 30 U/L 13-40 Sligh t hemolysis 2423581286) Lab Interpretation (test code Normal = 88589-3) [facility]viewURIC [id number] 19:22:07 Test Item Value Reference Range Interpretation Comments URIC ACID (test code = 2727085164) 4.4 mg/dL 2.9-6.0 Lab Interpretation (test code = Normal 64756-7) [facility]2023-[facility]-25 19:22:07 Test Item Value Reference Range Interpretation Comments CREATININE (test code = 0.47 mg/dL 0.50-1.04 L 1972261528) eGFR (test code = 156.7 mL/min/1.73m2 4805798633) JAKE (test code = JAKE) Association of Glomerular Filtration Rate (GFR) and Staging of Kidney Disease* + --+ --+ ------+| GFR (mL/min/1.73 m2) ?| With Kidney Damage ?| ?Without Kidney Damage+ --------+ --------+ +| ?>90 ?| ?Stage one ?| ? Normal ?+ ---+ ---+ -------+| ?60-89 ?| ?Stage two ?| ? Decreased GFR ? + --+ --+ ------+| ?30-59 ?| ?Stage three ?| ? Stage three ? + --+ --+ ------+| ?15-29 ?| ?Stage four ? | ? Stage four ?+ ---+ ---+ -------+| ?<15 (or dialysis) ? ?| ?Stage five ? | ? Stage five ?+ ---+ ---+ -------+ *Each stage assumes the associated GFR level [...] or urine or abnormalities in imaging tests). Lab Interpretation Abnormal (test code = 23426-9) [facility] AMINO TRANSFERASE([id number] 19:22:07 Test Item Value Reference Range Interpretation Comments ALTv (test code = 1742-6) 16 U/L 5-35 Lab Interpretation (test code = Normal 70955-0) [facility] (ASPARTATE AMINO TRANSFER)2022-08-11 19:22:07 Test Item Value Reference Range Interpretation Comments AST(SGOT) (test code = 30 U/L 13-40 Sligh t hemolysis [id number]) Lab Interpretation (test code Normal = 78174-3) [facility] [id number] 19:22:07 Test Item Value Reference Range Interpretation Comments URIC ACID (test code = 8806814337) 4.4 mg/dL 2.9-6.0 Lab Interpretation (test code = Normal 06379-6) [facility] - ONCE [id number] 19:05:00 Test Item Value Reference Range Interpretation Comments ABO & RH (test code = 20) O Positive IAT (test code = 1185) Negative [facility]CE [id number] 19:05:00 Test Item Value Reference Range Interpretation Comments ABO & RH (test code = 20) O Positive IAT (test code = 1185) Negative [facility] W/O SPECIFIC [id number] 17:13:00 Test Item Value Reference Range Interpretation Comments POCT PH U (test code = 3254) 6.5 mg/dl 5-8 POCT U LEUK EST (test code = TRACE Negative - Negative 3263) POCT U NIT (test code = 3262) NEGATIVE Negative - Negative POCT U PROT (test code = 3259) NEGATIVE Negative - Negative POCT U GLU (test code = 3256) NEGATIVE Negative - Negative POCT U KETONE (test code = TRACE Negative - Negative 3258) POCT U BLD (test code = 3257) NEGATIVE Negative - Negative [facility] URINALYSIS W/O SPECIFIC [id number] 17:38:00 Test Item Value Reference Range Interpretation Comments POCT PH U (test code = 3254) 7.0 mg/dl 5-8 POCT U LEUK EST (test code = negative Negative - Negative 3263) POCT U NIT (test code = 3262) negative Negative - Negative POCT U PROT (test code = 3259) negative Negative - Negative POCT U GLU (test code = 3256) negative Negative - Negative POCT U KETONE (test code = negative Negative - Negative 3258) POCT U BLD (test code = 3257) negative Negative - Negative [facility]/O SPECIFIC [id number] 17:37:00 Test Item Value Reference Range Interpretation Comments POCT PH U (test code = 3254) 7.0 mg/dl 5-8 POCT U LEUK EST (test code = negative Negative - Negative 3263) POCT U NIT (test code = 3262) negative Negative - Negative POCT U PROT (test code = 3259) negative Negative - Negative POCT U GLU (test code = 3256) negative Negative - Negative POCT U KETONE (test code = negative Negative - Negative 3258) POCT U BLD (test code = 3257) negative Negative - Negative [facility]/O SPECIFIC [id number] 15:18:00 Test Item Value Reference Range Interpretation Comments POCT PH U (test code = 3254) 7.0 mg/dl 5-8 POCT U LEUK EST (test code = trace Negative - Negative 3263) POCT U NIT (test code = 3262) negative Negative - Negative POCT U PROT (test code = 3259) negative Negative - Negative POCT U GLU (test code = 3256) negative Negative - Negative POCT U KETONE (test code = 15mg Negative - Negative 3258) POCT U BLD (test code = 3257) negative Negative - Negative [facility] URINALYSIS W/O SPECIFIC [id number] 15:04:00 Test Item Value Reference Range Interpretation Comments POCT PH U (test code = 3254) 6.0 mg/dl 5-8 POCT U LEUK EST (test code = small Negative - Negative 3263) POCT U NIT (test code = 3262) neg Negative - Negative POCT U PROT (test code = 3259) trace Negative - Negative POCT U GLU (test code = 3256) neg Negative - Negative POCT U KETONE (test code = 15 Negative - Negative 3258) POCT U BLD (test code = 3257) neg Negative - Negative [facility] URINALYSIS W/O SPECIFIC [id number] 16:53:00 Test Item Value Reference Range Interpretation Comments POCT PH U (test code = 3254) 6.5 mg/dl 5-8 POCT U LEUK EST (test code = neg Negative - Negative 3263) POCT U NIT (test code = 3262) neg Negative - Negative POCT U PROT (test code = 3259) trace Negative - Negative POCT U GLU (test code = 3256) neg Negative - Negative POCT U KETONE (test code = 40 mg/dl Negative - Negative 3258) POCT U BLD (test code = 3257) neg Negative - Negative [facility] URINALYSIS W/O SPECIFIC [id number] 19:55:00 Test Item Value Reference Range Interpretation Comments POCT PH U (test code = 3254) 6.0 mg/dl 5-8 POCT U LEUK EST (test code = negative Negative - Negative 3263) POCT U NIT (test code = 3262) negative Negative - Negative POCT U PROT (test code = 3259) negative Negative - Negative POCT U GLU (test code = 3256) negative Negative - Negative POCT U KETONE (test code = 160mg Negative - Negative 3258) POCT U BLD (test code = 3257) negative Negative - Negative [facility]. METABOLIC PANEL (73410)2022-06-03 19:45:34 Test Item Value Reference Range Interpretation Comments NA (test code = 136 mmol/L 135-145 8870923358) K (test code = 3.5 mmol/L 3.5-5.0 2087810532) CL (test code = 104 mmol/L 98-108 5249203610) CO2 TOTAL (test code = 23 mmol/L 23-31 0201861934) AGAP (test code = 9 2-16 5237508763) BUN (test code = 6 mg/dL 7-23 L 0222630582) GLUCOSE (test code = 78 mg/dL 70-110 6094089546) CREATININE (test code = 0.53 mg/dL 0.50-1.04 4475774197) TOTAL BILI (test code = 0.7 mg/dL 0.1-1.9 1078460888) CALCIUM (test code = 8.8 mg/dL 8.6-10.6 3578373205) T PROTEIN (test code = 7.6 g/dL 6.3-8.2 1756516403) ALBUMIN (test code = 3.9 g/dL 3.5-5.0 2441121028) ALK PHOS (test code = 105 U/L 34-122 2290198468) ALTv (test code = 46 U/L 5-35 H 1742-6) AST(SGOT) (test code = 39 U/L 13-40 4579198528) eGFR (test code = 136.4 mL/min/1.73m2 7893135002) JAKE (test code = JAKE) Association of Glomerular Filtration Rate (GFR) and Staging of Kidney Disease* + --+ --+ ------+| GFR (mL/min/1.73 m2) ?| With Kidney Damage ?| ?Without Kidney Damage+ --------+ --------+ +| ?>90 ?| ?Stage one ?| ? Normal ?+ ---+ ---+ -------+| ?60-89 ?| ?Stage two ?| ? Decreased GFR ? + --+ --+ ------+| ?30-59 ?| ?Stage three ?| ? Stage three ? + --+ --+ ------+| ?15-29 ?| ?Stage four ? | ? Stage four ?+ ---+ ---+ -------+| ?<15 (or dialysis) ? ?| ?Stage five ? | ? Stage five ?+ ---+ ---+ -------+ *Each stage assumes the associated GFR level [...] or urine or abnormalities in imaging tests). Lab Interpretation Abnormal (test code = 57871-8) [facility]IP[facility]2023-02-15 19:45:13 Test Item Value Reference Range Interpretation Comments LIPASE (test code = 4561832858) 63 U/L 0-220 Lab Interpretation (test code = Normal 27753-3) [facility]YL[facility]2023-[facility]-15 19:44:37 Test Item Value Reference Range Interpretation Comments MILENA (test code = 3309390215) 108 U/L 35-110 Lab Interpretation (test code = Normal 44269-9) [facility] WITH [id number] 19:28:53 Test Item Value Reference Range Interpretation Comments WBC (test code = 7.71 See_Comment [Automated 7297-2) message] The sy stem which generated this result transmitted reference range : 4.30 - 11.10 10*3/?L. The reference range was not used to interpret this result as normal/abnormal . RBC (test code = 3.65 See_Comment L [Automated 468-2) message] The sy stem which generated this result transmitted reference range : 3.93 - 5.25 10*6/?L. The reference range was not used to interpret this result as normal/abnormal . HGB (test code = 10.6 g/dL 11.6-15.0 L 718-7) HCT (test code = 32.6 % 35.7-45.2 L 4544-3) MCV (test code = 89.3 fL 80.6-95.5 787-2) MCH (test code = 29.0 pg 25.9-32.8 785-6) MCHC (test code = 32.5 g/dL 31.6-35.1 786-4) RDW-SD (test code = 42.3 fL 39.0-49.9 34334-0) RDW-CV (test code = 12.9 % 12.0-15.5 788-0) PLT (test code = 223 See_Comment [Automated 777-3) message] The sy stem which generated this result transmitted reference range : 166 - 358 10*3/ ?L. The reference r kevin was not used to interpret this result as normal/abnormal . MPV (test code = 11.0 fL 9.5-12.9 85897-7) NRBC/100 WBC (test 0.0 See_Comment [Automat ed code = 7347259509) message] The system which generated this result transmitted reference range : 0.0 - 10.0 /100 WBCs. The refer ence range was not u sed to interpret th is result as normal/abnormal . NRBC x10^3 (test code See_Comment [Auto mated = 3041854848) message] The s ystem which generated this result transmitted reference range : 10*3/?L. The reference range was not used to interpret this result as normal/abnormal . GRAN MAT (NEUT) % 82.9 % (test code = 770-8) IMM GRAN % (test code 0.90 % = 2452823852) LYMPH % (test code = 10.2 % 736-9) MONO % (test code = 4.4 % 5905-5) EOS % (test code = 1.3 % 713-8) BASO % (test code = 0.3 % 706-2) GRAN MAT x10^3(ANC) 6.39 10*3/uL 1.88-7.09 (test code = 5829206113) IMM GRAN x10^3 (test 0.07 10*3/uL 0.00-0.06 H code = 2448830719) LYMPH x10^3 (test code 0.79 10*3/uL 1.32-3.29 L = 731-0) MONO x10^3 (test code 0.34 10*3/uL 0.33-0.92 = 742-7) EOS x10^3 (test code = 0.10 10*3/uL 0.03-0.39 711-2) BASO x10^3 (test code 0.01-0.07 = 704-7) Lab Interpretation Abnormal (test code = 22275-6) [facility] URINALYSIS W/O SPECIFIC [id number] 15:46:00 Test Item Value Reference Range Interpretation Comments POCT PH U (test code = 3254) 6.5 mg/dl 5-8 POCT U LEUK EST (test code = negative Negative - Negative 3263) POCT U NIT (test code = 3262) negative Negative - Negative POCT U PROT (test code = 3259) negative Negative - Negative POCT U GLU (test code = 3256) negative Negative - Negative POCT U KETONE (test code = 15mg Negative - Negative 3258) POCT U BLD (test code = 3257) negative Negative - Negative [facility] URINALYSIS W/O SPECIFIC [id number] 16:55:00 Test Item Value Reference Range Interpretation Comments POCT PH U (test code = 3254) 6 mg/dl 5-8 POCT U LEUK EST (test code = Negative Negative - Negative 3263) POCT U NIT (test code = 3262) Negative Negative - Negative POCT U PROT (test code = 3259) 30mg/dl Negative - Negative POCT U GLU (test code = 3256) Negative Negative - Negative POCT U KETONE (test code = 3258) 40mg/dl Negative - Negative POCT U BLD (test code = 3257) Negative Negative - Negative [facility] WITH [id number] 20:41:25 Test Item Value Reference Range Interpretation Comments WBC (test code = See_Comment [Automated 6690-2) message] The system which generated this result transmit sara reference range : 4.30 - 11.10 10*3/?L. The reference range was not used to interpret this result as normal/abnormal . RBC (test code = See_Comment L [Automated 789-8) message] The system which generated this result transmit sara reference range : 3.93 - 5.25 10*6/?L. The reference range was not used to interpret this result as normal/abnormal . HGB (test code = 10.8 g/dL 11.6-15.0 L 718-7) HCT (test code = 32.0 % 35.7-45.2 L 4544-3) MCV (test code = 86.7 fL 80.6-95.5 787-2) MCH (test code = 29.3 pg 25.9-32.8 785-6) MCHC (test code = 33.8 g/dL 31.6-35.1 786-4) RDW-SD (test code = 41.1 fL 39.0-49.9 82975-6) RDW-CV (test code = 13.1 % 12.0-15.5 788-0) PLT (test code = See_Comment [Automated 777-3) message] The system which generated this result transmit sara reference range : 166 - 358 10*3/ ?L. The reference range was not u sed to interpret th is result as normal/abnormal . MPV (test code = 11.1 fL 9.5-12.9 83169-0) NRBC/100 WBC (test See_Comment [Automat ed code = 1542743180) message] The system which generated this result transmit sara reference range : 0.0 - 10.0 /100 WBCs. The reference range was not used to interpret this result as normal/abnormal . NRBC x10^3 (test code See_Comment [Auto mated = 8683013342) message] The system which generated this result transmit sara reference range : 10*3/?L. The reference range was not used to interpret this result as normal/abnormal . SEG % (test code = 87 % 33-76 H 53395-1) BAND % (test code = 1 % 0-1 81090-8) LYMPH % (test code = 9 % 14-54 L 51092-8) MONO % (test code = 3 % 0-4 73283-7) PLT ESTIMATE (test Normal Normal code = 9317-9) GIANT PLATELETS (test Present See_Comment A [Auto mated code = 5908-9) message] The system which generated this result transmit sara reference range : (none). The reference range was not used to interpret this result as normal/abnormal . DIFF COMMENTS (test Platelet Clumps code = 9116614111) Seen Lab Interpretation Abnormal (test code = 24409-9) [facility]. METABOLIC PANEL (50403)2022-05-09 20:04:51 Test Item Value Reference Range Interpretation Comments NA (test code = 132 mmol/L 135-145 L 5896950695) K (test code = 3.9 mmol/L 3.5-5.0 4379685030) CL (test code = 104 mmol/L 98-108 7171692117) CO2 TOTAL (test code = 19 mmol/L 23-31 L 4242083159) AGAP (test code = 2-16 5924971263) BUN (test code = 6 mg/dL 7-23 L 3103009876) GLUCOSE (test code = 83 mg/dL 70-110 7590122136) CREATININE (test code = 0.53 mg/dL 0.50-1.04 3104856263) TOTAL BILI (test code = 0.5 mg/dL 0.1-1.0 5270223457) CALCIUM (test code = 9.1 mg/dL 8.6-10.6 4919978198) T PROTEIN (test code = 7.0 g/dL 6.3-8.2 4957637284) ALBUMIN (test code = 3.8 g/dL 3.5-5.0 7969734720) ALK PHOS (test code = 82 U/L 34-122 9966284040) ALTv (test code = 45 U/L 5-35 H 1742-6) AST(SGOT) (test code = 45 U/L 13-40 H 7760252637) eGFR (test code = mL/min/1.73m2 8082877193) JAKE (test code = JAKE) Association of Glomerular Filtration Rate (GFR) and Staging of Kidney Disease* + --+ --+ ------+| GFR (mL/min/1.73 m2) ?| With Kidney Damage ?| ?Without Kidney Damage+ --------+ --------+ +| ?>90 ?| ?Stage one ?| ? Normal ?+ ---+ ---+ -------+| ?60-89 ?| ?Stage two ?| ? Decreased GFR ? + --+ --+ ------+| ?30-59 ?| ?Stage three ?| ? Stage three ? + --+ --+ ------+| ?15-29 ?| ?Stage four ? | ? Stage four ?+ ---+ ---+ -------+| ?<15 (or dialysis) ? ?| ?Stage five ? | ? Stage five ?+ ---+ ---+ -------+ *Each stage assumes the associated GFR level [...] or urine or abnormalities in imaging tests). Lab Interpretation Abnormal (test code = 45519-0) [facility] URINALYSIS W/O SPECIFIC [id number] 20:23:00 Test Item Value Reference Range Interpretation Comments POCT PH U (test code = 3254) 6.0 mg/dl 5-8 POCT U LEUK EST (test code = trace Negative - Negative 3263) POCT U NIT (test code = 3262) negative Negative - Negative POCT U PROT (test code = 3259) trace Negative - Negative POCT U GLU (test code = 3256) negative Negative - Negative POCT U KETONE (test code = negative Negative - Negative 3258) POCT U BLD (test code = 3257) negative Negative - Negative [facility] [id number] 23:16:00 Test Item Value Reference Range Interpretation Comments POCT PH U (test code = 3254) 7.0 mg/dl 5-8 POCT U LEUK EST (test code = negative Negative - Negative 3263) POCT U NIT (test code = 3262) negative Negative - Negative POCT U PROT (test code = 3259) trace Negative - Negative POCT U GLU (test code = 3256) negative Negative - Negative POCT U KETONE (test code = negative Negative - Negative 3258) POCT U BLD (test code = 3257) negative Negative - Negative [facility]. METABOLIC PANEL (00892)2022-03-02 07:12:26 Test Item Value Reference Range Interpretation Comments NA (test code = 132 mmol/L 135-145 L 4811120480) K (test code = 3.7 mmol/L 3.5-5.0 2594801183) CL (test code = 105 mmol/L 98-108 4655285386) CO2 TOTAL (test code = 22 mmol/L 23-31 L 5921828974) AGAP (test code = 2-16 1333778229) BUN (test code = 8 mg/dL 7-23 6220882537) GLUCOSE (test code = 104 mg/dL 70-110 2001796420) CREATININE (test code = 0.47 mg/dL 0.50-1.04 L 9154518517) TOTAL BILI (test code = 0.6 mg/dL 0.1-1.0 4642683326) CALCIUM (test code = 9.0 mg/dL 8.6-10.6 9737601250) T PROTEIN (test code = 6.9 g/dL 6.3-8.2 6282265518) ALBUMIN (test code = 3.8 g/dL 3.5-5.0 4957398541) ALK PHOS (test code = 59 U/L 34-122 9080505340) ALTv (test code = 74 U/L 5-35 H 1742-6) AST(SGOT) (test code = 49 U/L 13-40 H 4162020920) eGFR (test code = mL/min/1.73m2 8417151691) JAKE (test code = JAKE) Association of Glomerular Filtration Rate (GFR) and Staging of Kidney Disease* + --+ --+ ------+| GFR (mL/min/1.73 m2) ?| With Kidney Damage ?| ?Without Kidney Damage+ --------+ --------+ +| ?>90 ?| ?Stage one ?| ? Normal ?+ ---+ ---+ -------+| ?60-89 ?| ?Stage two ?| ? Decreased GFR ? + --+ --+ ------+| ?30-59 ?| ?Stage three ?| ? Stage three ? + --+ --+ ------+| ?15-29 ?| ?Stage four ? | ? Stage four ?+ ---+ ---+ -------+| ?<15 (or dialysis) ? ?| ?Stage five ? | ? Stage five ?+ ---+ ---+ -------+ *Each stage assumes the associated GFR level [...] or urine or abnormalities in imaging tests). Lab Interpretation Abnormal (test code = 16871-5) [facility] WITH [id number] 06:24:24 Test Item Value Reference Range Interpretation Comments WBC (test code = See_Comment [Automated 0912-2) message] The sy stem which generated this result transmitted reference range : 4.30 - 11.10 10*3/?L. The reference range was not used to interpret this result as normal/abnormal . RBC (test code = See_Comment L [Automated 529-8) message] The sy stem which generated this result transmitted reference range : 3.93 - 5.25 10*6/?L. The reference range was not used to interpret this result as normal/abnormal . HGB (test code = 10.9 g/dL 11.6-15.0 L 718-7) HCT (test code = 31.2 % 35.7-45.2 L 4544-3) MCV (test code = 83.6 fL 80.6-95.5 787-2) MCH (test code = 29.2 pg 25.9-32.8 785-6) MCHC (test code = 34.9 g/dL 31.6-35.1 786-4) RDW-SD (test code = 38.0 fL 39.0-49.9 L 46996-8) RDW-CV (test code = 12.6 % 12.0-15.5 788-0) PLT (test code = See_Comment [Automated 777-3) message] The sy stem which generated this result transmitted reference range : 166 - 358 10*3/ ?L. The reference r kevin was not used to interpret this result as normal/abnormal . MPV (test code = 10.5 fL 9.5-12.9 55672-7) NRBC/100 WBC (test See_Comment [Automat ed code = 3763263302) message] The system which generated this result transmitted reference range : 0.0 - 10.0 /100 WBCs. The refer ence range was not u sed to interpret th is result as normal/abnormal . NRBC x10^3 (test code See_Comment [Auto mated = 2939120228) message] The s ystem which generated this result transmitted reference range : 10*3/?L. The reference range was not used to interpret this result as normal/abnormal . GRAN MAT (NEUT) % 83.6 % (test code = 770-8) IMM GRAN % (test code 0.70 % = 4573525332) LYMPH % (test code = 9.6 % 736-9) MONO % (test code = 5.0 % 5905-5) EOS % (test code = 0.9 % 713-8) BASO % (test code = 0.2 % 706-2) GRAN MAT x10^3(ANC) 7.45 10*3/uL 1.88-7.09 H (test code = 6160151247) IMM GRAN x10^3 (test 0.06 10*3/uL 0.00-0.06 code = 1028971242) LYMPH x10^3 (test code 0.86 10*3/uL 1.32-3.29 L = 731-0) MONO x10^3 (test code 0.45 10*3/uL 0.33-0.92 = 742-7) EOS x10^3 (test code = 0.08 10*3/uL 0.03-0.39 711-2) BASO x10^3 (test code 0.01-0.07 = 704-7) Lab Interpretation Abnormal (test code = 21407-3) [facility] SPECIFIC [id number] 17:42:00 Test Item Value Reference Range Interpretation Comments POCT PH U (test code = 3254) 6.5 mg/dl 5-8 POCT U LEUK EST (test code = negative Negative - Negative 3263) POCT U NIT (test code = 3262) negative Negative - Negative POCT U PROT (test code = 3259) negative Negative - Negative POCT U GLU (test code = 3256) negative Negative - Negative POCT U KETONE (test code = negative Negative - Negative 3258) POCT U BLD (test code = 3257) negative Negative - Negative [facility] W/O SPECIFIC [id number] 13:16:00 Test Item Value Reference Range Interpretation Comments POCT PH U (test code = 3254) 6.5 mg/dl 5-8 POCT U LEUK EST (test code = negative Negative - Negative 3263) POCT U NIT (test code = 3262) negative Negative - Negative POCT U PROT (test code = 3259) negative Negative - Negative POCT U GLU (test code = 3256) negative Negative - Negative POCT U KETONE (test code = negative Negative - Negative 3258) POCT U BLD (test code = 3257) negative Negative - Negative [facility] DUP VEIN [id number] 00:00:00 [facility]EN[facility]: CHRISTOPHER DENNY : 1995 Sex: F Name: CHRISTOPHER DENNY [facility] [place] : 1995 Age/S: 26 / F [address] [place] [address] Unit #: [id number] Loc: [place] [address] Phys: Jose Juan Castro MD Acct: [id number] Dis Date: Status: REG CLI PHONE #: [phone] Exam Date: 10/28/2021956 FAX #: [phone] Reason: DVT FOLLOWUP. D64.9, ANEMIA DISORDER. EXAMS: CPT CODE: [id number] DUP VEIN CORI 24516 PROCEDURE INFORMATION: Exam: US Duplex Lower Extremity Veins, Bilateral Exam date and time: 10/28/2021 9:26 AM Age: 26 years old Clinical indication: Condition or disease; Other: H/o dvt; Additional info: Dvt followup. D64.9, anemia disorder. TECHNIQUE: Imaging protocol: Real-time Duplex ultrasound of the bilateral extremities with 2-D camacho scale, color Doppler flow and spectral waveform analysis with image documentation. Complete examfocused on the bilateral lower extremity veins. COMPARISON: No relevant prior studies available. FINDINGS: Right deep veins: Unremarkable. The common femoral, femoral, proximal profunda femoral and pop liteal veins are patent without thrombus. Normal Doppler waveforms. Normal compressibility and/or augmentation response. Right superficial veins: Saphenofemoral junction is patent without thrombus. Left deep veins: Unremarkable. The common femoral, femoral, proximal profunda femoral and popliteal veins are patent without thrombus. Normal Doppler waveforms. Normal compressibility and/or augmentation response. Left superficial veins: Saphenofemoral junction is patent without thrombus. Soft tissues: Unremarkable. IMPRESSION: No evidence of deep vein thrombosis. at 1013 Reported and signed by: Dano Gilliam M.D. 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
[2023-02-20 10:44] LABS: Absolute Lymphocytes (CBC) 2.1 K/uL (0.7-4.9); Hematocrit 37.5 % (36.0-45.0); Lymphocytes % 30.5 % (15.3-44.8); MCV 87.4 fL (80-100); MPV 8.9 fL (7.6-11.3); Platelets 254 thou/uL (152-406); RBC Red Blood Cell Count 4.29 M/uL (3.86-4.86)
[2023-02-20 10:48] LABS: Protime INR 1.14
[2023-02-20 11:02] LABS: SARS-CoV-2 Antigen Rapid Res Negative (Negative)
[2023-02-20 11:04] LABS: Potassium 3.5 mEq/L (3.5-5.1); Troponin High Sensitivity 6.2 pg/mL (<58.9)
--- NOTE | 2023-02-20 11:26 | RAD REPORT ---
EXAM DESCRIPTION: RAD - Chest Single View - 02/20/2023 11:10 am CLINICAL HISTORY: CHEST PAIN COMPARISON: Chest Pa And Lat (2 Views) dated 11/13/2020; Chest Single View dated 05/22/2019; Chest Sing le View dated 06/24/2018; Chest Pa And Lat (2 Views) dated 04/02/2018 FINDINGS: Lines: None. Lungs: No evidence of edema or pneumonia. Pleural: No significant pleural effusions or pneumothorax. Cardiac: The heart size is within normal limits. Mediastinum: Within normal limits. Bones: No acute fractures. Other: None IMPRESSION: No acute cardiopulmonary disease.
--- NOTE | 2023-02-20 11:33 | EDPHYS ---
Physician Documentation [facility] Name: Edmond Dewitt Age: 27 yrs Sex: Female : 1995 Arrival Date: 02/20/2023 Time: 09:59 Bed 14 Private MD: FLORENCIA Physician Aly Loredo HPI: 02/20 10:08 This 27 yrs old Black Female presents to ER via Ambulatory with complaints of Shortness jh7 Of Breath, Chest Pain, Sore Throat, cough. 10:08 27-year-old female presents to the ER complaining of hacking cough, chest tightness, jh7 shortness of breath, headache, runny nose, and sore throat since yesterday. Reports a history of CHF. Reports that she has bilateral leg aching but states that it feels consistent with her neuropathy.. 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 - Social history:: Smoking status: Patient denies any tobacco usage or history of. ROS: 10:08 Constitutional: Negative for fever, chills, and weight loss, Eyes: Negative for injury, jh7 pain, redness, and discharge, Abdomen/GI: Negative for abdominal pain, nausea, vomiting, diarrhea, and constipation, Back: Negative for injury and pain, MS/Extremity: Negative for injury and deformity, Skin: Negative for injury, rash, and discoloration, Neuro: Negative for headache, weakness, numbness, tingling, and seizure, 10:08 ENT: Positive for rhinorrhea, sore throat, 10:08 Cardiovascular: Positive for chest pain, with cough, 10:08 Respiratory: Positive for cough, shortness of breath, wheezing, 10:08 All other systems are negative, Exam: 10:08 Constitutional: This is a well developed, well nourished patient who is awake, alert, jh7 and in no acute distress. Head/Face: Normocephalic, atraumatic. Neck: Trachea midline, no thyromegaly or masses palpated, and no cervical lymphadenopathy. Supple, full range of motion without nuchal rigidity, or vertebral point tenderness. No Meningismus. Cardiovascular: Regular rate and rhythm with a normal S1 and S2. No gallops, murmurs, or rubs. Normal PMI, no JVD. No pulse deficits. Respiratory: Lungs have equal breath sounds bilaterally, clear to auscultation and percussion. No rales, rhonchi or wheezes noted. No increased work of breathing, no retractions or nasal flaring. Abdomen/GI: Soft, non-tender, with normal bowel sounds. No distension or tympany. No guarding or rebound. No evidence of tenderness throughout. Back: Really helpful Skin: Warm, dry with normal turgor. Normal color with no rashes, no lesions, and no evidence of cellulitis. MS/ Extremity: Pulses equal, no cyanosis. Neurovascular intact. Full, normal range of motion. Neuro: Awake and alert, GCS 15, oriented to person, place, time, and situation. Motor strength 5/5 in all extremities. Sensory grossly intact. Normal gait. 10:08 ENT: Posterior pharynx: erythema, that is mild, pooling of secretions, that are mild, 10:08 Respiratory: the patient does not display signs of respiratory distress, Respirations: normal, Breath sounds: wheezing: that is mild, is heard diffusely, Vital Signs: 10:09 BP 148 / 81; Pulse 66; Resp 16; Temp 98.4; Pulse Ox 100% on R/A; Weight 102.06 kg; iw Height 5 ft. 2 in. ; Pain 7/10; 10:09 Body Mass Index 41.15 (102.06 kg, 157.48 cm) iw 10:09 Pain Scale: Adult iw MDM: 10:01 Patient medically screened. [facility] 11:32 Differential diagnosis: asthma, Bronchitis CHF exacerbation, pneumonia. Data 7 interpreted: Pulse oximetry: is 100 %. Interpretation: normal. The patient's pulmonary embolism risk score was calculated as follows: the patient has a history of a previous deep vein thrombosis or pulmonary embolism (1.5 Pts) Total Score: 0-2 points. This patient was found to be at low risk for a pulmonary embolism by using the Well's assessment criteria. Data reviewed: vital signs, nurses notes, lab test result(s), EKG, radiologic studies, plain films. Independent interpretation of the following test(s) in the Emergency Department EKG: See my EKG interpretation above. Test considered but Not performed: CT: CTA: Normal O2 saturation, patient exhibits no signs of respiratory distress, heart rate normal, other diagnoses more likely. Care significantly affected by the following chronic conditions: Congestive Heart Failure. Counseling: I had a detailed discussion with the patient and/or guardian regarding the historical points, exam findings, and any diagnostic results supporting the discharge/admit diagnosis, to return to the emergency department if symptoms worsen or persist or if there are any questions or concerns that arise at home. 02/20 10:07 Order name: Basic Metabolic Panel; Complete Time: 11: [facility] 02/20 10:07 Order name: CBC with Diff; Complete Time: : [facility] 02/20 10:07 Order name: D-Dimer; Complete Time: : [facility] 02/20 10:07 Order name: NT PRO-BNP; Complete Time: 11: [facility] 02/20 10:07 Order name: PT-INR; Complete Time: : [facility] 02/20 10:07 Order name: Troponin HS; Complete Time: 11: [facility] 02/20 10:07 Order name: Flu; Complete Time: 11:30 [facility] 02/20 10:07 Order name: SARS RAPID; Complete Time: 11: [facility] 02/20 10:07 Order name: Strep [facility] 02/20 11:05 Order name: Throat Culture [facility] 02/20 10:07 Order name: XRAY Chest (1 view); Complete Time: 11: [facility] 02/20 10:07 Order name: EKG; Complete Time: 10: [facility] 02/20 10:07 Order name: Cardiac monitoring; Complete Time: 11: [facility] 02/20 10:07 Order name: EKG - Nurse/Tech; Complete Time: 11: [facility] 02/20 10:07 Order name: IV Saline Lock; Complete Time: : [facility] 02/20 10:07 Order name: Labs collected and sent; Complete Time: 10:31 [facility] 02/20 10:07 Order name: O2 Per Protocol; Complete Time: :34 7 02/20 10:07 Order name: O2 Sat Monitoring; Complete Time: :7 EC:37 Rate is 58 beats/min. Rhythm is regular. QRS [place] is Normal. VA interval is normal at [facility] 156 msec. QRS interval is normal at 70 msec. QT interval is normal at 416 msec. No Q waves. T waves are Normal. No ST changes noted. Clinical impression: Sinus bradycardia. Administered Medications: No medications were administered Disposition: 16:55 Co-signature as Attending Physician, Aly Loredo MD I reviewed the patient's care rn provided by the Advanced Practice Provider and agree with the diagnosis and treatment plan. Disposition Summary: 02/20/23 11:33 Discharge Ordered Notes: Location: Home [facility] Problem: new [facility] Symptoms: are unchanged [facility] Condition: Stable [facility] Diagnosis - Acute bronchitis, unspecified [facility] Followup: [facility] - With: Private Physician - When: 2 - 3 days - Reason: Recheck today's complaints Discharge Instructions: - Discharge Summary Sheet [facility] - Acute Bronchitis, Adult [facility] - Viral Respiratory Infection [facility] Forms: - Medication Reconciliation Form [facility] - Thank You Letter [facility] - Patient Portal Instructions [facility] - Leadership Thank You Letter [facility] Prescriptions: - albuterol sulfate 90 mcg/actuation Inhalation HFA Aerosol Inhaler - inhale 1 puff INHALATION route every 4-6 hours As needed; 1 Each; Refills: 0, [facility] Product Selection Permitted - Tessalon Perles 100 mg Oral Capsule - take 1 capsule ORAL route every 8 hours As needed; 15 capsule; Refills: 0, [facility] Product Selection Permitted Signatures: Dispatcher [employer] Elissa Herr, Aly Prasad RN, MD MD rn Hadash, Jennifer, DISTRICT MEDICAL EXAMINER [place] [address]
--- NOTE | 2023-02-20 11:33 | ER ---
Nurse's Notes [facility] Name: Edmond Dewitt Age: 27 yrs Sex: Female : 1995 Arrival Date: 02/20/2023 Time: 09:59 Bed 14 Private MD: Diagnosis: Acute bronchitis, unspecified Presentation: 02/20 10:08 Chief complaint: Patient states: chest pain, SOB, leg pain since yesterday. Coronavirus iw screen: At this time, the client does not indicate any symptoms associated with coronavirus-19. 10:08 Method Of Arrival: Ambulatory iw 10:08 Acuity: SHADY 3 iw 10:10 Ebola Screen: Patient negative for fever greater than or equal to 101.5 degrees iw Fahrenheit, and additional compatible Ebola Virus Disease symptoms Patient denies exposure to infectious person. Patient denies travel to an Ebola-affected area in the 21 days before illness onset. No symptoms or risks identified at this time. Initial Sepsis Screen: Does the patient meet any 2 criteria? No. Patient's initial sepsis screen is negative. Does the patient have a suspected source of infection? No. Patient's initial sepsis screen is negative. Risk Assessment: Do you want to hurt yourself or someone else? Patient reports no desire to harm self or others. Onset of symptoms was February 20, 2023. 10:10 Onset of symptoms was February 19, 2023 at 09:00. iw Triage Assessment: 10:10 General: Appears in no apparent distress. Respiratory: Reports shortness of breath the iw patient has mild shortness of breath. Respiratory: Onset: The symptoms/episode began/occurred today. 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 - Social history:: Smoking status: Patient denies any tobacco usage or history of. Screenin:10 [facility] ED Fall Risk Assessment (Adult) Score/Fall Risk Level 0 - 2 = Low Risk. Abuse iw screen: Denies threats or abuse. Denies injuries from another. Nutritional screening: No deficits noted. Tuberculosis screening: No symptoms or risk factors identified. Assessment: 10:10 General: Appears in no apparent distress. Behavior is calm, cooperative. Pain: iw Complains of pain in chest. Neuro: Level of Consciousness is awake, alert, obeys commands, Oriented to person, place, time, situation, Moves all extremities. Full function. Cardiovascular: Reports chest pain, shortness of breath, Rhythm is regular. Respiratory: Airway is patent Respiratory effort is even, unlabored, Breath sounds are clear bilaterally. Derm: Skin is intact, is healthy with good turgor. Musculoskeletal: Range of motion: intact in all extremities. Vital Signs: 10:09 BP 148 / 81; Pulse 66; Resp 16; Temp 98.4; Pulse Ox 100% on R/A; Weight 102.06 kg; iw Height 5 ft. 2 in. ; Pain 7/10; 10:09 Body Mass Index 41.15 (102.06 kg, 157.48 cm) iw 10:09 Pain Scale: Adult iw ED Course: 10:00 Patient arrived in ED. rg4 10:01 [facility] jh[facility] 10:01 Aly Loredo MD is Attending Physician. 7 10:08 Triage completed. iw 10:10 Arm band placed on. iw 10:10 Patient has correct armband on for positive identification. iw 10:11 No provider procedures requiring assistance completed. iw 10:31 Strep Sent. em1 10:31 SARS RAPID Sent. em1 10:31 Flu Sent. em1 10:31 Basic Metabolic Panel Sent. em1 10:31 CBC with Diff Sent. em1 10:31 D-Dimer Sent. em1 10:31 NT PRO-BNP Sent. em1 10:31 PT-INR Sent. em1 10:31 Troponin HS Sent. em1 10:31 Initial lab(s) drawn, by me, sent to lab. Inserted saline lock: 22 gauge in right em1 antecubital area, using aseptic technique. Blood collected. 10:35 Elissa Henderson, RN is Primary Nurse. iw 11:12 XRAY Chest (1 view) In Process Unspecified. EDMS 11:55 Provided Education on: . iw 11:57 IV discontinued, intact, bleeding controlled, No redness/swelling at site. Pressure iw dressing applied. Administered Medications: No medications were administered Medication: 10:10 VIS not applicable for this client. iw Outcome: 11:33 Discharge ordered by jh7 11:57 Discharged to home ambulatory, iw 11:57 Condition: good 11:57 Discharge instructions given to patient, Instructed on Demonstrated understanding of instructions, follow-up care, 11:57 Patient left the ED. iw Signatures: Dispatcher [employer] Elissa Herr, RN RN mikey Garvin, Niels em1 Darwin, Elaine rg4 Aga Ulrich, COIN TELLER COIN TELLER jh7
[2023-02-20 12:14] VITALS: BP 148/81; TEMP 98.4; O2SAT 100
--- NOTE | 2023-02-27 14:41 | EKG ---
Test Date: 2023-02-20 Test Time: 10:37:41 Terrazzo Tile Setter: NOLA MEASUREMENT RESULTS: Intervals: Rate: 58 NV: 156 QRSD: 70 QT: 416 QTc: 408 [place]: P: 27 NV: 156 QRS: 29 T: 28 INTERPRETIVE STATEMENTS: Sinus bradycardia Otherwise normal ECG Compared to ECG 11/13/2020 13:28:15 Sinus rhythm no longer present Electronically Signed On 02-27-23 14:20:28 VENTILATION WORKER by King Valderrama
== END 2023-02-20 11:57 | disposition home or self-care (01) ==
LOC: ER 09:59
DX: J20.9 Acute bronchitis, unspecified (principal); I50.9 Heart failure, unspecified; Z11.52 Encounter for screening for COVID-19; Z88.2 Allergy status to sulfonamides; Z88.5 Allergy status to narcotic agent; Z88.8 Allergy status to other drugs, medicaments and biological substances
CPT/HCPCS: 36415; 71045; 80048; 83880; 84484; 85025; 85379; 85610; 87070; 87081; 87804; 87811; 93005; 99283

== ENCOUNTER → 2023-05-11 | Emergency (ER) | payer OTHER ==
--- NOTE | 2023-05-11 18:06 | RAD REPORT ---
EXAM DESCRIPTION: RAD - Chest Single View - 05/11/2023 6:00 pm CLINICAL HISTORY: CHEST PAIN Chest pain. COMPARISON: <Comparisons> FINDINGS: Portable technique limits examination quality. The lungs are grossly clear. The heart is normal in size. No displaced fractures. IMPRESSION: No acute intrathoracic process suspected.
[2023-05-11 18:22] LABS: Absolute Lymphocytes (CBC) 2.2 K/uL (0.7-4.9); Hematocrit 38.4 % (36.0-45.0); Lymphocytes % 39.8 % (15.3-44.8); MCV 86.1 fL (80-100); MPV 8.4 fL (7.6-11.3); Platelets 256 thou/uL (152-406); RBC Red Blood Cell Count 4.46 M/uL (3.86-4.86)
[2023-05-11 18:39] LABS: Potassium 3.5 mEq/L (3.5-5.1)
[2023-05-11 18:40] LABS: Troponin High Sensitivity 5.3 pg/mL (<58.9)
--- NOTE | 2023-05-11 19:38 | EDPHYS ---
Physician Documentation [facility] Name: Edmond Dewitt Age: 28 yrs Sex: Female : 1995 Arrival Date: 05/11/2023 Time: 17:36 Bed 15 Private MD: ED Physician Serge Hendrickson HPI: 05/11 17:43 This 28 yrs old Black Female presents to ER via Unassigned with complaints of Chest kb Pain, Flu Symptoms. 17:43 Pt is a 28 year old female who presents with cough, chills, chest pain, and no taste kb that started yesterday. Denies fever, congestion, bodyaches. 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 - Social history:: Smoking status: Patient denies any tobacco usage or history of. ROS: 17:43 Abdomen/GI: Negative for abdominal pain, nausea, vomiting, diarrhea, and constipation, kb 17:43 Constitutional: Positive for chills, 17:43 ENT: Positive for no taste, 17:43 Cardiovascular: Positive for chest pain, 17:43 Respiratory: Positive for cough, 17:43 All other systems are negative, Exam: 17:43 Constitutional: This is a well developed, well nourished patient who is awake, alert, kb and in no acute distress. Head/Face: Normocephalic, atraumatic. ENT: Moist Mucous membranes Cardiovascular: Regular rate Respiratory: Respirations even and unlabored. No increased work of breathing. Talking in full sentences Skin: Warm, dry with normal turgor. Normal color. MS/ Extremity: Pulses equal, no cyanosis. Neurovascular intact. Full, normal range of motion. Neuro: Awake and alert, GCS 15, oriented to person, place, time, and situation. Moves all extremities. Normal gait. 18:13 ECG was reviewed by the Attending Physician. kb Vital Signs: 17:43 BP 119 / 75; Pulse 77; Resp 18; Temp 98; Pulse Ox 100% ; Weight 104.33 kg; Height 5 ft. bp 2 in. ; 20:09 BP 139 / 75; Pulse 94; Resp 18; Pulse Ox 100% ; cp4 17:43 Body Mass Index 42.07 (104.33 kg, 157.48 cm) bp MDM: 17:39 Patient medically screened. kb 17:44 Differential Diagnosis: Other uri, flu, covid, pneumonia, [place], abnormal ekg. Data kb reviewed: vital signs, nurses notes. 19:37 Counseling: I had a detailed discussion with the patient and/or guardian regarding the kb historical points, exam findings, and any diagnostic results supporting the discharge/admit diagnosis, lab results, radiology results, the need for outpatient follow up, a family practitioner, to return to the emergency department if symptoms worsen or persist or if there are any questions or concerns that arise at home. 05/11 17:42 Order name: Basic Metabolic Panel; Complete Time: 18:42 kb 05/11 17:42 Order name: CBC with Diff; Complete Time: 18:42 kb 05/11 17:42 Order name: Troponin HS; Complete Time: 18:42 kb 05/11 17:42 Order name: Flu; Complete Time: 18:42 kb 05/11 17:42 Order name: COVID-19 SARS RT PCR; Complete Time: 19:37 kb 05/11 17:42 Order name: XRAY Chest (1 view); Complete Time: 18:13 kb 05/11 17:42 Order name: EKG; Complete Time: 17:43 kb 05/11 17:42 Order name: Cardiac monitoring; Complete Time: 17:49 kb 05/11 17:42 Order name: EKG - Nurse/Tech; Complete Time: 18:11 kb 05/11 17:42 Order name: IV Saline Lock; Complete Time: 18:11 kb 05/11 17:42 Order name: Labs collected and sent; Complete Time: 18:11 kb 05/11 17:42 Order name: O2 Per Protocol; Complete Time: 17:49 kb 05/11 17:42 Order name: O2 Sat Monitoring; Complete Time: 17:49 kb EC:13 Rate is 75 beats/min. Rhythm is regular. QRS [place] is Normal. [place] interval is normal at kb 164 msec. QRS interval is normal at 72 msec. QT interval is normal at 417 msec. Administered Medications: No medications were administered Disposition Summary: 05/11/23 19:38 Discharge Ordered Notes: Location: Home kb Condition: Stable kb Diagnosis - SARS-associated coronavirus as the cause of diseases classified elsewhere kb Followup: kb - With: Emergency Department - When: As needed - Reason: Worsening of condition Followup: kb - With: Private Physician - When: 2 - 3 days - Reason: Recheck today's complaints, Continuance of care, Re-evaluation by your physician Discharge Instructions: - Discharge Summary Sheet kb - COVID-19 kb - Viral Illness, Adult kb Forms: - Medication Reconciliation Form kb - Thank You Letter kb - Antibiotic Education kb - Prescription Opioid Use kb - Patient Portal Instructions kb - Leadership Thank You Letter kb - Work release form cp4 Signatures: Dispatcher [employer] Perla Nelson FNP-C FNP-Nabil Paul, RN RN bp
--- NOTE | 2023-05-11 19:38 | ER ---
Nurse's Notes [facility] Name: Edmond Dewitt Age: 28 yrs Sex: Female : 1995 Arrival Date: 05/11/2023 Time: 17:36 Bed 15 Private MD: Diagnosis: SARS-associated coronavirus as the cause of diseases classified elsewhere Presentation: 05/11 17:43 Chief complaint: Patient states: flu-like symptoms that started yesterday. Coronavirus bp screen: Client denies travel out of the [place] in the last 14 days. Client presents with at least one sign or symptom that may indicate coronavirus-19. Standard/surgical mask placed on the client. Ebola Screen: Patient negative for fever greater than or equal to 101.5 degrees Fahrenheit, and additional compatible Ebola Virus Disease symptoms Patient denies exposure to infectious person. Patient denies travel to an Ebola-affected area in the 21 days before illness onset. No symptoms or risks identified at this time. Initial Sepsis Screen: Does the patient meet any 2 criteria? No. Patient's initial sepsis screen is negative. Does the patient have a suspected source of infection? No. Patient's initial sepsis screen is negative. Risk Assessment: Do you want to hurt yourself or someone else? Patient reports no desire to harm self or others. Onset of symptoms was May 10, 2023. 17:43 Method Of Arrival: Ambulatory bp 17:43 Acuity: SHADY 3 bp Triage Assessment: 17:45 General: Appears in no apparent distress. Behavior is calm, cooperative, appropriate bp for age. Pain: Complains of pain in chest. Cardiovascular: Reports chest pain. 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 - Social history:: Smoking status: Patient denies any tobacco usage or history of. Screenin:47 [facility] ED Fall Risk Assessment (Adult) History of falling in the last 3 months, bp including since admission No falls in past 3 months (0 pts) Confusion or Disorientation No (0 pts) Intoxicated or Sedated No (0 pts) Impaired Gait No (0 pts) Mobility Assist Device Used No (0 pt) Altered Elimination No (0 pt) Score/Fall Risk Level 0 - 2 = Low Risk Oriented to surroundings, Maintained a safe environment, Educated pt \T\ family on fall prevention, incl call for assistance when getting out of bed, Assessed \T\ reinforced patient's understanding of fall precautions, Hourly rounding (assess needs \T\ fall precautionary measures) done. Abuse screen: Denies threats or abuse. Nutritional screening: No deficits noted. Tuberculosis screening: No symptoms or risk factors identified. Assessment: 17:47 Pain: Pain does not radiate. Pain began gradually. bp Vital Signs: 17:43 BP 119 / 75; Pulse 77; Resp 18; Temp 98; Pulse Ox 100% ; Weight 104.33 kg; Height 5 ft. bp 2 in. ; 20:09 BP 139 / 75; Pulse 94; Resp 18; Pulse Ox 100% ; cp4 17:43 Body Mass Index 42.07 (104.33 kg, 157.48 cm) bp ED Course: 17:38 Patient arrived in ED. mg5 17:38 Serge Hendrickson MD is Attending Physician. ec2 17:39 Perla Dewitt FNP-C is [facility]. kb 17:40 Tova Evans is Primary Nurse. cp4 17:45 Triage completed. bp 17:45 Arm band placed on right wrist. Patient placed in waiting room. bp 17:47 Bed in low position. Call light in reach. Side rails up X 1. Client placed on bp continuous cardiac and pulse oximetry monitoring. NIBP monitoring applied. 18:02 XRAY Chest (1 view) In Process Unspecified. EDMS 18:11 Initial lab(s) drawn, by me, sent to lab. Inserted saline lock: 22 gauge in right em1 antecubital area, using aseptic technique. Blood collected. 18:11 COVID-19 SARS RT PCR Sent. bp 18:11 Flu Sent. bp 18:11 Basic Metabolic Panel Sent. em1 18:11 CBC with Diff Sent. em1 18:11 Troponin HS Sent. em1 20:10 Provided Education on: covid. cp4 20:10 No provider procedures requiring assistance completed. intact, bleeding controlled, No cp4 redness/swelling at site. Pressure dressing applied. Patient maintains SpO2 saturation greater than 95% on room air. Administered Medications: No medications were administered Medication: 17:47 VIS not applicable for this client. bp Outcome: 19:38 Discharge ordered by MD. kb 20:10 Discharged to home ambulatory, cp4 20:10 Condition: stable 20:10 Discharge instructions given to patient, Instructed on discharge instructions, follow up and referral plans. Demonstrated understanding of instructions, follow-up care, 20:11 Patient left the ED. cp4 Signatures: Dispatcher [employer] EDPerla Vergara, SENIOR DYNAMICS CRM DEVELOPER-C SENIOR DYNAMICS CRM DEVELOPER-Niels Higgins em1 Nabil Fuller, KRIS RN Penelope Fox mg5 Serge Hendrickson MD MD ec2 Tova Evans cp4
[2023-05-11 20:47] VITALS: BP 139/75; TEMP 98; O2SAT 100
--- NOTE | 2023-05-12 17:24 | EKG ---
Test Date: 2023-05-11 Test Time: 18:08:14 Hse Coordinator: SUKHI MEASUREMENT RESULTS: Intervals: Rate: 75 ID: [id number] QRSD: 72 QT: 374 QTc: 417 [place]: P: 68 ID: [id number] QRS: 48 T: 23 INTERPRETIVE STATEMENTS: Normal sinus rhythm Normal ECG Compared to ECG 02/20/2023 10:37:41 Sinus bradycardia no longer present Electronically Signed On 05-12-23 17:23:08 HOT MILL WORKER by King Valderrama
== END ==
LOC: ER 17:36
DX: U07.1 COVID-19 (principal); Z88.2 Allergy status to sulfonamides; Z88.5 Allergy status to narcotic agent; Z88.8 Allergy status to other drugs, medicaments and biological substances
CPT/HCPCS: 36415; 71045; 80048; 84484; 85025; 87635; 87804; 93005; 99284

== ENCOUNTER 2023-08-19 19:06 | Emergency (ER) | payer OTHER ==
[2023-08-19] MEDS ORDERED: HYDROCODONE/APAP 5/325 MG TAB ONE (20:01)
--- NOTE | 2023-08-19 21:03 | RAD REPORT ---
EXAM DESCRIPTION: RAD - Chest Single View - 08/19/2023 8:50 pm CLINICAL HISTORY: CHEST PAIN Chest pain. COMPARISON: Chest Single View dated 05/11/2023; Chest Single View dated 02/20/2023; Chest Pa And Lat ( 2 Views) dated 11/13/2020; Chest Single View dated 05/22/2019 FINDINGS: Portable technique limits examination quality. The lungs are grossly clear. The heart is normal in size. No displaced fractures. IMPRESSION: No acute intrathoracic process suspected.
--- NOTE | 2023-08-19 21:06 | EDPHYS ---
Physician Documentation [facility] Name: Edmond Dewitt Age: 28 yrs Sex: Female : 1995 Arrival Date: 08/19/2023 Time: 19:06 Bed 18 Private MD: ED Physician Qamar Bland HPI: 08/18 20:22 This 28 yrs old Black Female presents to ER via Ambulatory with complaints of Headache sd2 - Stuffy nose, Chest Pain. 20:22 28 yo F presents with CC of headache, congestion, R sided chest pain since yesterday. 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 Denies fever. No associated SOB, n/v/d or urinary symptoms. . Historical: - Allergies: 19:32 Bentyl; ha1 19:32 dicyclomine; ha1 19:32 Ketorolac; ha1 19:32 metoclopramide HCl; ha1 19:32 Morphine; ha1 19:32 Ondansetron HCl; ha1 19:32 Sulfa (Sulfonamide Antibiotics); ha1 19:32 Tramadol HCl; ha1 - PMHx: 19:32 brain lesions; CHF; DVT (PCOS); Migraines; PCOS; ha1 - Immunization history:: Adult Immunizations up to date. - Infectious Disease History:: Denies. - Social history:: Smoking status: Patient denies any tobacco usage or history of. ROS: 20:22 Constitutional: Negative for fever, chills, and weight loss, Eyes: Negative for injury, sd2 pain, redness, and discharge, 20:22 Respiratory: Negative for shortness of breath, cough, wheezing. Abdomen/GI: Negative for abdominal pain, nausea, vomiting, diarrhea. MS/Extremity: Negative for injury and deformity, Skin: Negative for injury, rash, and discoloration, 20:22 ENT: Positive for sinus congestion, Negative for injury or acute deformity, 20:22 Cardiovascular: Positive for chest pain, Negative for orthopnea, palpitations, 20:22 Neuro: Positive for headache, Negative for seizure activity, syncope, Exam: 20:22 Constitutional: This is a well developed, well nourished patient who is awake, alert, sd2 and in no acute distress. Head/Face: Normocephalic, atraumatic. Eyes: EOMI, normal conjunctiva bilaterally Chest/axilla: Normal chest wall appearance and motion. Nontender with no deformity. Cardiovascular: Regular rate and rhythm with a normal S1 and S2. No gallops, murmurs, or rubs. 2+ distal pulses. Respiratory: Lungs have equal breath sounds bilaterally, clear to auscultation and percussion. No rales, rhonchi or wheezes noted. No increased work of breathing, no retractions or nasal flaring. Abdomen/GI: Soft, non-tender, with normal bowel sounds. No guarding or rebound. No evidence of tenderness throughout. Skin: Warm, dry with normal turgor. Normal color with no rashes, no lesions, and no evidence of cellulitis. MS/ Extremity: Pulses equal, no cyanosis. Neurovascular intact. Full, normal range of motion. Neuro: Awake and alert, GCS 15, oriented to person, place, time, and situation. Cranial nerves II-XII grossly intact. Motor strength 5/5 in all extremities. Sensory grossly intact. Cerebellar exam normal. Normal gait. Psych: Awake, alert, with orientation to person, place and time. Behavior, mood, and affect are within normal limits. 20:22 ECG was reviewed by the Attending Physician. NSR, rate 69, no STEMI criteria or significant ST-T wave changes 21:07 Musculoskeletal/extremity: DVT Exam: No signs of deep vein thrombosis. no pain, no jana swelling, no tenderness, negative Homans' sign noted on exam, no appreciated bluish discoloration, no erythema, no increased warmth, Vital Signs: 19:22 BP 123 / 74; Pulse 72; Resp 17 S; Temp 98.5(O); Pulse Ox 100% on R/A; Weight 97.52 kg; ha1 Pain 8/10; 20:17 BP 117 / 83; Pulse 70; Pulse Ox 100% on R/A; Pain 7/10; tm6 21:15 BP 114 / 68; Pulse 73; Resp 19; Temp 96.9(TE); Pulse Ox 100% on R/A; Pain 3/10; tm6 19:22 Pain Scale: Adult ha1 20:17 Pain Scale: Adult tm6 21:15 Pain Scale: Adult tm6 MDM: 19:28 Patient medically screened. sd2 20:22 Differential diagnosis: Differential diagnosis includes but is not limited to: Tension sd2 headache, migraine headache, intracranial hemorrhage, dehydration, electrolyte abnormality, musculoskeletal, meningitis among others. Data reviewed: vital signs, nurses notes. Test considered but Not performed: CT: Patient declined CT based upon her prior symptoms and symptoms today and d is not concerned. She also declined labs at this time due to being a hard stick and feeling as if she wanted to avoid this today.. Care significantly affected by the following chronic conditions: Congestive Heart Failure. Transition of care: After a detail discussion of the patient's case, care is transferred to Qamar Bland MD. 21:04 ED course: pt refused all labs, cts etc, twice. [facility] 08/18 19:42 Order name: COVID-19 SARS RT PCR; Complete Time: 20:48 sd2 08/18 19:42 Order name: Flu sd2 08/18 19:42 Order name: XRAY Chest (1 view); Complete Time: 21:04 sd2 08/18 19:42 Order name: EKG - Nurse/Tech; Complete Time: 19:58 sd2 Administered Medications: 20:15 Drug: HYDROcodone-acetaminophen PO 5 mg-325 mg 1 tabs PO once Route: PO; tm6 Disposition Summary: 08/19/23 21:06 Discharge Ordered Notes: Location: Home [facility] Problem: new [facility] Symptoms: have improved jana Condition: Stable jana Diagnosis - Fever, unspecified jana - Acute upper respiratory infection, unspecified jana - Cough jana Followup: jana - With: Private Physician - When: 2 - 3 days - Reason: Recheck today's complaints, Continuance of care, Re-evaluation by your physician Discharge Instructions: - Discharge Summary Sheet jana - Fever, Adult jana - Upper Respiratory Infection, Adult jana - Upper Respiratory Infection, Adult, [id number] jana - Cough, Adult, [id number] [facility] Forms: - Medication Reconciliation Form [facility] - Antibiotic Education jana - Prescription Opioid Use [facility] - Patient Portal Instructions [facility] - Leadership Thank You Letter [facility] Prescriptions: - Tylenol 325 mg Oral tablet - take 2 tablets ORAL route every 6 hours as needed; 50 tablet; Refills: 0, jana Product Selection Permitted - Zithromax Z-Suraj 250 mg Oral Tablet - take 1 tablet ORAL route as directed for 5 days Day 1 - take two (2) tablets jana one time. Day 2, 3, 4 , 5 take one (1) tablet once daily.; 6 tablet; Refills: 0, Product Selection Permitted Signatures: Dispatcher [employer] Qamar Tracy MD MD cha Dunlop, Stephanie, MD MD sd2 Amisha Barton, RN RN ha1 Cirilo Choi RN RN tm6
--- NOTE | 2023-08-19 21:06 | ER ---
Nurse's Notes [facility] Name: Edmond Dewitt Age: 28 yrs Sex: Female : 1995 Arrival Date: 08/19/2023 Time: 19:06 Bed 18 Private MD: Diagnosis: Fever, unspecified;Acute upper respiratory infection, unspecified;Cough Presentation: 08/18 19:22 Chief complaint: Patient states: I HAVE A HEADACHE , STUFFY NOSE, BODY ACHES AND CHEST ha1 PAIN. 19:22 Method Of Arrival: Ambulatory ha1 19:22 Coronavirus screen: Vaccine status: Patient reports being unvaccinated. Ebola Screen: ha1 No symptoms or risks identified at this time. Initial Sepsis Screen: Does the patient meet any 2 criteria? No. Patient's initial sepsis screen is negative. Does the patient have a suspected source of infection? No. Patient's initial sepsis screen is negative. Risk Assessment: Do you want to hurt yourself or someone else? Patient reports no desire to harm self or others. Onset of symptoms was August 19, 2023. 19:22 Acuity: SHADY 3 ha1 Triage Assessment: 19:20 Headache History: The patient has had previous headaches and this one is similar to ha1 previous episodes. General: Appears comfortable, Behavior is calm, cooperative. Pain: Complains of pain in BODY ACHES AND CHEST PAIN Pain does not radiate. Pain currently is 8 out of 10 on a pain scale. Neuro: Level of Consciousness is awake, alert, obeys commands, Oriented to person, place, time, situation. Cardiovascular: Patient's skin is warm and dry. Respiratory: Airway is patent Respiratory effort is even, unlabored, Respiratory pattern is regular, symmetrical. 19:20 Pain: Also complains of nausea. tm6 Historical: - Allergies: 19:32 Bentyl; ha1 19:32 dicyclomine; ha1 19:32 Ketorolac; ha1 19:32 metoclopramide HCl; ha1 19:32 Morphine; ha1 19:32 Ondansetron HCl; ha1 19:32 Sulfa (Sulfonamide Antibiotics); ha1 19:32 Tramadol HCl; ha1 - PMHx: 19:32 brain lesions; CHF; DVT (PCOS); Migraines; PCOS; ha1 - Immunization history:: Adult Immunizations up to date. - Infectious Disease History:: Denies. - Social history:: Smoking status: Patient denies any tobacco usage or history of. Screenin:17 [facility] ED Fall Risk Assessment (Adult) History of falling in the last 3 months, tm6 including since admission No falls in past 3 months (0 pts). [facility] ED Fall Risk Assessment (Adult) Confusion or Disorientation No (0 pts) Intoxicated or Sedated No (0 pts) Impaired Gait No (0 pts) Mobility Assist Device Used No (0 pt) Altered Elimination No (0 pt) Score/Fall Risk Level 0 - 2 = Low Risk Oriented to surroundings, Maintained a safe environment. Abuse screen: Denies threats or abuse. Abuse screen: Denies injuries from another. Nutritional screening: No deficits noted. Tuberculosis screening: No symptoms or risk factors identified. Assessment: 20:17 General: Appears uncomfortable, Behavior is calm, cooperative. Pain: Complains of pain tm6 in face and chest Pain currently is 7 out of 10 on a pain scale. Quality of pain is described as sharp, Pain began 1 day ago. Is continuous. Neuro: Level of Consciousness is awake, alert, obeys commands, Oriented to person, place, time, situation, Reports headache. Cardiovascular: Reports chest pain, nausea, Patient's skin is warm and dry. Rhythm is sinus rhythm. Respiratory: Airway is patent Respiratory effort is even, unlabored, Respiratory pattern is regular, symmetrical, Parent/caregiver reports the patient having cough that is non-productive. GI: Abdomen is round Abd is soft and non tender X 4 quads. Reports nausea. : No signs and/or symptoms were reported regarding the genitourinary system. EENT: Reports nasal congestion. Derm: No signs and/or symptoms reported regarding the dermatologic system. Musculoskeletal: No signs and/or symptoms reported regarding the musculoskeletal system. 21:15 Reassessment: Patient and/or family updated on plan of care and expected duration. Pain tm6 level reassessed. Patient is alert, oriented x 3, equal unlabored respirations, skin warm/dry/pink. Patient states feeling better. Vital Signs: 19:22 BP 123 / 74; Pulse 72; Resp 17 S; Temp 98.5(O); Pulse Ox 100% on R/A; Weight 97.52 kg; ha1 Pain 8/10; 20:17 BP 117 / 83; Pulse 70; Pulse Ox 100% on R/A; Pain 7/10; tm6 21:15 BP 114 / 68; Pulse 73; Resp 19; Temp 96.9(TE); Pulse Ox 100% on R/A; Pain 3/10; tm6 19:22 Pain Scale: Adult ha1 20:17 Pain Scale: Adult tm6 21:15 Pain Scale: Adult tm6 ED Course: 19:09 Patient arrived in ED. ra3 19:28 Orin Agudelo MD is Attending Physician. sd2 19:32 Triage completed. ha1 19:49 Cirilo Choi, RN is Primary Nurse. tm6 19:49 EKG done, by ED staff, reviewed by Orin Agudelo MD. tm6 20:15 Flu Sent. tm6 20:15 COVID-19 SARS RT PCR Sent. tm6 20:17 Patient has correct armband on for positive identification. Placed in gown. Bed in low tm6 position. Call light in reach. Side rails up X 1. Provided Education on: plan of care. Client placed on continuous cardiac and pulse oximetry monitoring. NIBP monitoring applied. school bus monitor on. Pulse ox on. NIBP on. Door closed. Noise minimized. Warm blanket given. 20:17 Arm band placed on right wrist. tm6 20:30 Attending Physician role handed off by Orin Agudelo MD cha 20:30 Qamar Bland MD is Attending Physician. [facility] 20:52 XRAY Chest (1 view) In Process Unspecified. EDMS 21:15 No provider procedures requiring assistance completed. Patient did not have IV access tm6 during this emergency room visit. Administered Medications: 20:15 Drug: HYDROcodone-acetaminophen PO 5 mg-325 mg 1 tabs PO once Route: PO; tm6 Medication: 20:17 VIS not applicable for this client. tm6 Outcome: 21:06 Discharge ordered by . jana 21:16 Discharged to home ambulatory, tm6 21:16 Condition: stable 21:16 Discharge instructions given to patient, Instructed on discharge instructions, follow up and referral plans. medication usage, Demonstrated understanding of instructions, follow-up care, medications, Prescriptions given X 2, 21:16 Patient left the ED. tm6 Signatures: Dispatcher [employer] EDLA Qamar Bland MD MD cha Dunlop, Stephanie MD MD sd2 Amisha Barton, RN RN ha1 Cirilo Choi, RN RN tm6 Elaina Aguiar ra3
[2023-08-19 21:27] VITALS: BP 114/68; TEMP 96.9; O2SAT 100
--- NOTE | 2023-08-20 14:37 | EKG ---
Test Date: 2023-08-19 Test Time: 19:46:46 Parts Cleaner: DORIS MEASUREMENT RESULTS: Intervals: Rate: 69 PA: 172 QRSD: 76 QT: 384 QTc: 411 [place]: P: 63 PA: 172 QRS: 58 T: 49 INTERPRETIVE STATEMENTS: Normal sinus rhythm Normal ECG Compared to ECG 05/11/2023 18:08:14 No significant changes Electronically Signed On 08-20-23 14:35:28 CDT by King Valderrama
== END 2023-08-19 21:16 | disposition home or self-care (01) ==
LOC: ER 19:06
DX: J06.9 Acute upper respiratory infection, unspecified (principal); R05.9 Cough, unspecified; Z11.52 Encounter for screening for COVID-19; Z88.2 Allergy status to sulfonamides; Z88.5 Allergy status to narcotic agent; Z88.8 Allergy status to other drugs, medicaments and biological substances
CPT/HCPCS: 71045; 87635; 87804; 93005; 99284

== ENCOUNTER 2024-08-28 09:01 | Emergency (ER) | payer OTHER ==
[2024-08-28 10:11] LABS: SARS-CoV-2 Antigen Rapid Res Negative (Negative)
--- NOTE | 2024-08-28 10:57 | RAD REPORT ---
EXAMINATION: TWO VIEW CHEST XR CLINICAL INDICATION: Female, 29 years old. [facility] Bed Name: [facility] TECHNIQUE: 2 view radiographs of the chest were performed. COMPARISON: 08/19/2023 FINDINGS: The lungs are well inflated and clear. No pneumothorax or sizable effusion. The heart is normal in si ze. Mediastinal contours are unremarkable. IMPRESSION: No acute or significant abnormalities.
--- NOTE | 2024-08-28 11:07 | ER ---
Nurse's Notes [facility] Name: Edmond Dewitt Age: 29 yrs Sex: Female : 1995 Arrival Date: 08/28/2024 Time: 09:01 Bed 13 Private MD: Diagnosis: Acute serous otitis media, left ear;Acute upper respiratory infection, unspecified;Cough Presentation: 08/28 09:12 Ebola Screen: Patient denies travel to an Ebola-affected area in the 21 days before [facility] illness onset. Initial Sepsis Screen: Does the patient meet any 2 criteria? No. Patient's initial sepsis screen is negative. Does the patient have a suspected source of infection? No. Patient's initial sepsis screen is negative. Risk Assessment: Do you want to hurt yourself or someone else? Patient reports no desire to harm self or others. 09:12 Method Of Arrival: Ambulatory [facility] 09:18 Chief complaint: Patient states: [place], N/V started last week. Coronavirus screen: Client 1 denies travel out of the [place] in the last 14 days. At this time, the client does not indicate any symptoms associated with coronavirus-19. Resp Distress? No respiratory distress is noted at this time. Onset of symptoms was August 21, 2024. 09:18 Acuity: SHADY 3 ll1 Historical: - Allergies: 09:12 Bentyl; ll1 09:12 dicyclomine; ll1 09:12 Ketorolac; ll1 09:12 metoclopramide HCl; ll1 09:12 Morphine; ll1 09:12 Ondansetron HCl; ll1 09:12 Sulfa (Sulfonamide Antibiotics); ll1 09:12 Tramadol HCl; ll1 - PMHx: 09:12 brain lesions; CHF; DVT (PCOS); Migraines; PCOS; ll1 - PSHx: 09:12 section; gastric sleeve; ll1 - Immunization history:: Adult Immunizations up to date. - Infectious Disease History:: Denies. - Social history:: Smoking status: Patient reports the use of cigarette tobacco products, smokes one-half pack cigarettes per day. Screenin:40 [facility] ED Fall Risk Assessment (Adult) History of falling in the last 3 months, hb including since admission No falls in past 3 months (0 pts) Confusion or Disorientation No (0 pts) Intoxicated or Sedated No (0 pts) Impaired Gait No (0 pts) Mobility Assist Device Used No (0 pt) Altered Elimination No (0 pt) Score/Fall Risk Level 0 - 2 = Low Risk Oriented to surroundings, Maintained a safe environment, Educated pt \T\ family on fall prevention, incl call for assistance when getting out of bed. Abuse screen: Denies threats or abuse. Denies injuries from another. Nutritional screening: No deficits noted. Tuberculosis screening: No symptoms or risk factors identified. Assessment: 09:38 General: Appears in no apparent distress. Behavior is calm, cooperative. Pain: Pain hb currently is 3 out of 10 on a pain scale. Neuro: Level of Consciousness is awake, alert, obeys commands, Oriented to place, time, situation. Cardiovascular: Patient's skin is warm and dry. Respiratory: Reports cough that is Respiratory effort is even, unlabored, Respiratory pattern is regular, symmetrical. GI: No signs and/or symptoms were reported involving the gastrointestinal system. : No signs and/or symptoms were reported regarding the genitourinary system. EENT: Reports nasal congestion. Derm: Skin is pink, warm \T\ dry. Musculoskeletal: No signs and/or symptoms reported regarding the musculoskeletal system. 10:37 Reassessment: Pt complaining of headache and ear pain and requesting pain meds. cm10 provider made aware. 11:23 Reassessment: Patient appears in no apparent distress at this time. Patient and/or cm10 family updated on plan of care and expected duration. Pain level reassessed. Patient is alert, oriented x 3, equal unlabored respirations, skin warm/dry/pink. Vital Signs: 09:10 BP 129 / 84; Pulse 87; Resp 17; Temp 98; Pulse Ox 100% on R/A; Weight 97.52 kg; Height bc6 5 ft. 3 in. ; 11:22 BP 112 / 73; Pulse 80; Resp 17; Pulse Ox 100% ; cm10 09:10 Body Mass Index 38.09 (97.52 kg, 160.02 cm) bc6 ED Course: 09:03 Patient arrived in ED. im 09:04 Ady Costa DO is Attending Physician. ms3 09:12 Arm band placed on. ll1 09:19 Triage completed. ll1 09:32 Ariana Wolff, RN is Primary Nurse. hb 09:38 SARS RAPID Sent. hb 09:40 Patient has correct armband on for positive identification. Call light in reach. hb Provided Education on: tests, result times, use of call light . 09:40 No provider procedures requiring assistance completed. Patient did not have IV access hb during this emergency room visit. 10:06 Primary Nurse role handed off by Ariana Wolff, KRIS cm10 10:06 Annette Garvin, KRIS is Primary Nurse. cm10 10:08 Chest Pa And Lat (2 Views) XRAY In Process Unspecified. EDMS 11:07 Héctor Richard DO is Referral Physician. ms3 Administered Medications: 11:22 Drug: Acetaminophen PO 1000 mg PO once Route: PO; cm10 11:22 Follow up: Response: Medication administered at discharge. cm10 Medication: 09:40 VIS not applicable for this client. hb Outcome: 11:07 Discharge ordered by MD. ms3 11:23 Discharged to home ambulatory, cm10 11:23 Condition: good 11:23 Discharge instructions given to patient, Instructed on discharge instructions, follow up and referral plans. medication usage, Demonstrated understanding of instructions, follow-up care, medications, Prescriptions given X 4, 11:23 Patient left the ED. cm10 Signatures: Dispatcher [employer] EDMO Ariana Wolff, RN Anshu Martin RN RN 1 Ady Costa DO DO ms3 GisellalaneyNy 6 Geetha De Leon Clarissa, KRIS RN cm10
--- NOTE | 2024-08-28 11:07 | EDPHYS ---
Physician Documentation [facility] Name: Edmond Dewitt Age: 29 yrs Sex: Female : 1995 Arrival Date: 08/28/2024 Time: 09:01 Bed 13 Private MD: ED Physician Ady Costa HPI: 08/28 10:20 This 29 yrs old Black Female presents to ER via Ambulatory with complaints of ms3 Congestion, Headache, Ear Pain. 10:20 29-year-old female with past medical history of brain lesions, CHF, DVT, migraines, ms3 PCOS presents to the emergency department headache, cough, sneezing, left-sided earache, nausea. Patient denies vomiting. She states her discomfort is a 7/10. Patient states her head pain is worse with laying her head back. Patient states symptoms began last week.. Historical: - Allergies: 09:12 Bentyl; ll1 09:12 dicyclomine; ll1 09:12 Ketorolac; ll1 09:12 metoclopramide HCl; ll1 09:12 Morphine; ll1 09:12 Ondansetron HCl; ll1 09:12 Sulfa (Sulfonamide Antibiotics); ll1 09:12 Tramadol HCl; ll1 - PMHx: 09:12 brain lesions; CHF; DVT (PCOS); Migraines; PCOS; ll1 - PSHx: 09:12 section; gastric sleeve; ll1 - Immunization history:: Adult Immunizations up to date. - Infectious Disease History:: Denies. - Social history:: Smoking status: Patient reports the use of cigarette tobacco products, smokes one-half pack cigarettes per day. ROS: 10:20 Constitutional: Negative for fever, and chills. Cardiovascular: Negative for chest ms3 pain, and palpitations. Respiratory: Negative for shortness of breath, cough, wheezing, and pleuritic chest pain, Abdomen/GI: Negative for abdominal pain, nausea, vomiting, diarrhea, and constipation, MS/Extremity: Negative for injury and deformity, Skin: Negative for injury, rash, and discoloration, Exam: 10:20 Constitutional: This is a well developed, well nourished patient who is awake, alert, ms3 and in no acute distress. Chest/axilla: Normal chest wall appearance and motion. Nontender with no deformity. Cardiovascular: Regular rate and rhythm with a normal S1 and S2. No gallops, murmurs, or rubs. Normal PMI, no JVD. No pulse deficits. Respiratory: Lungs have equal breath sounds bilaterally, clear to auscultation and percussion. No rales, rhonchi or wheezes noted. No increased work of breathing, no retractions or nasal flaring. Abdomen/GI: Soft, non-tender, with normal bowel sounds. No distension or tympany. No guarding or rebound. No evidence of tenderness throughout. Skin: Warm, dry with normal turgor. Normal color with no rashes, no lesions, and no evidence of cellulitis. MS/ Extremity: Pulses equal, no cyanosis. Neurovascular intact. Full, normal range of motion. Neuro: Awake and alert, GCS 15, oriented to person, place, time, and situation. Cranial nerves II-XII grossly intact. Motor strength 5/5 in all extremities. Sensory grossly intact. Cerebellar exam normal. Normal gait. 11:14 ENT: External ear(s): are unremarkable, Ear canal(s): are normal, TM's: fluid levels, ms3 on the left, Vital Signs: 09:10 BP 129 / 84; Pulse 87; Resp 17; Temp 98; Pulse Ox 100% on R/A; Weight 97.52 kg; Height bc6 5 ft. 3 in. ; 11:22 BP 112 / 73; Pulse 80; Resp 17; Pulse Ox 100% ; cm10 09:10 Body Mass Index 38.09 (97.52 kg, 160.02 cm) bc6 MDM: 09:26 Medical Screening Exam initiated ms3 10:20 Differential diagnosis: COVID vs PNA vs Viral illness. ms3 11:14 Data reviewed: vital signs, nurses notes, lab test result(s), radiologic studies, and ms3 as a result, I will discharge patient. I considered the following discharge prescriptions or medication management in the emergency department Medications were administered in the Emergency Department. See MAR. Independent interpretation of the following test(s) in the Emergency Department X-Ray: My interpretation is Chest x-ray images reviewed by me do not reveal pneumonia. Counseling: I had a detailed discussion with the patient and/or guardian regarding the historical points, exam findings, and any diagnostic results supporting the discharge/admit diagnosis, lab results, radiology results, the need for outpatient follow up, to return to the emergency department if symptoms worsen or persist or if there are any questions or concerns that arise at home. Special discussion: I discussed with the patient/guardian in detail that at this point there is no indication for admission to the hospital. It is understood, however, that if the symptoms persist or worsen the patient needs to return immediately for re-evaluation. ED course: Discussed negative COVID and chest x-ray findings with patient. Patient to follow-up with primary care physician 2 to 3 days. All questions were answered. Return precautions discussed include worsening symptoms, or any other concerns.. 08/28 09:31 Order name: SARS RAPID; Complete Time: 10:20 ms3 08/28 09:31 Order name: Chest Pa And Lat (2 Views) XRAY; Complete Time: 10:59 ms3 Administered Medications: 11:22 Drug: Acetaminophen PO 1000 mg PO once Route: PO; cm10 11:22 Follow up: Response: Medication administered at discharge. cm10 Disposition Summary: 08/28/24 11:07 Discharge Ordered Notes: Location: Home ms3 Condition: Stable ms3 Diagnosis - Acute serous otitis media, left ear ms3 - Acute upper respiratory infection, unspecified ms3 - Cough ms3 Followup: ms3 - With: Héctor Richard, - When: 2 - 3 days - Reason: Recheck today's complaints Discharge Instructions: - Discharge Summary Sheet ms3 - Otitis Media, Adult ms3 - Upper Respiratory Infection, Adult ms3 - Cough, Adult ms3 Forms: - Medication Reconciliation Form ms3 - Antibiotic Education ms3 - Prescription Opioid Use ms3 - Patient Portal Instructions ms3 - Leadership Thank You Letter ms3 Prescriptions: - Flonase Allergy Relief 50 mcg/actuation Nasal spray, suspension - spray 2 spray INTRANASAL route daily administer into each nostril; 11 ms3 milliliter; Refills: 0, Product Selection Permitted - Amoxicillin 875 mg Oral Tablet - take 1 tablet ORAL route every 12 hours for 10 days; 20 tablet; Refills: 0, ms3 Product Selection Permitted - Claritin 10 mg Oral Tablet - take 1 tablet ORAL route once daily As needed; 30 tablet; Refills: 0, Product ms3 Selection Permitted - benzonatate 200 mg Oral capsule - take 1 capsule ORAL route 3 times per day as needed; 20 capsule; Refills: 0, ms3 Product Selection Permitted Signatures: Dispatcher [employer] EDMS Ariana Wolff RN RN hb Anshu Fernandez RN RN ll1 Ady Costa, DO DO ms3 Annette Garvin, RN RN cm10 Corrections: (The following items were deleted from the chart) 09:31 Chest Pa And Lat (2 Views)+RAD.RAD.BRZ ordered. EDMS EDMS 09:31 SARS-COV-2 Antigen Rapid+I.LAB.BRZ ordered. EDPR EDMS 11:15 10:20 Constitutional: This is a well developed, well nourished patient who is awake, ms3 alert, and in no acute distress. Chest/axilla: Normal chest wall appearance and motion. Nontender with no deformity. Cardiovascular: Regular rate and rhythm with a normal S1 and S2. No gallops, murmurs, or rubs. Normal PMI, no JVD. No pulse deficits. Respiratory: Lungs have equal breath sounds bilaterally, clear to auscultation and percussion. No rales, rhonchi or wheezes noted. No increased work of breathing, no retractions or nasal flaring. Abdomen/GI: Soft, non-tender, with normal bowel sounds. No distension or tympany. No guarding or rebound. No evidence of tenderness throughout. Skin: Warm, dry with normal turgor. Normal color with no rashes, no lesions, and no evidence of cellulitis. MS/ Extremity: Pulses equal, no cyanosis. Neurovascular intact. Full, normal range of motion. Neuro: Awake and alert, GCS 15, oriented to person, place, time, and situation. Cranial nerves II-XII grossly intact. Motor strength 5/5 in all extremities. Sensory grossly intact. Cerebellar exam normal. Normal gait. ms3
[2024-08-28] MEDS ORDERED: ACETAMINOPHEN 500 MG TAB ONE (11:16)
[2024-08-28 11:45] VITALS: TEMP 98; O2SAT 100
[2024-08-28 11:46] VITALS: BP 112/73
== END 2024-08-28 11:23 | disposition home or self-care (01) ==
LOC: ER 09:01
DX: H65.02 Acute serous otitis media, left ear (principal); J06.9 Acute upper respiratory infection, unspecified; R05.9 Cough, unspecified; F17.210 Nicotine dependence, cigarettes, uncomplicated; Z11.52 Encounter for screening for COVID-19
CPT/HCPCS: 36415; 71046; 87426; 99283

== ENCOUNTER 2025-01-15 11:26 | Emergency (ER) | payer OTHER ==
--- NOTE | 2025-01-15 12:24 | RAD REPORT ---
Extremity Venous Uni Ltd CLINICAL INDICATION: Female, 29 years old.h/o DVT;Pain;Swelling RIGHT TECHNIQUE: Complete duplex sonography of the lower extremity veins was performed of the affected limb . The examination included compression for vein patency, color Doppler imaging and flow augmentation in response to distal compression of the distal external iliac, common femoral, femoral, popliteal, peroneal, tibial and great saphenous veins. [id number]. COMPARISON: No prior exams FINDINGS: Duplex sonography imaging demonstrates all deep veins examined to be fully compressible with spontane ous, phasic and augmented flow in the affected limb. IMPRESSION: No evidence of deep venous thrombosis in the left lower extremity.
--- NOTE | 2025-01-15 13:07 | RAD REPORT ---
Procedure: Chest Single View HISTORY: Cough COMPARISON: August 2024 FINDINGS: The lungs appear clear of acute infiltrate. No significant pleural effusion noted. The heart is normal size. IMPRESSION: No acute abnormality is displayed.
[2025-01-15 13:21] LABS: Absolute Lymphocytes (CBC) 1.1 K/uL (0.7-4.9); Hematocrit 40.1 % (36.0-45.0); Hemoglobin 12.8 g/dL (12.0-15.0); MCH 28.0 pg (27.0-35.0); MCHC 32.0 g/dL (32.0-36.0); MCV 87.6 fL (80-100); MPV 9.2 fL (7.6-11.3); Nucleated RBC Absolute Count 0.0 (0-0); Nucleated Red Blood Cells % 0.0 % (0-0); RBC Red Blood Cell Count 4.57 M/uL (3.86-4.86); White Blood Count 6.60 thou/uL (4.3-10.9)
[2025-01-15 13:29] LABS: PT Prothrombin Time 15.0 SECONDS (10-13.0); Protime INR 1.34
[2025-01-15 13:41] LABS: Influenza A Ag Negative; Influenza B Ag Negative; SARS-CoV-2 Antigen Rapid Res Negative (Negative)
[2025-01-15 13:48] LABS: ALT/SGPT 49 U/L (13-56); AST/SGOT 37 U/L (15-37); Albumin 3.7 g/dL (3.4-5.0); Albumin/Globulin Ratio 0.7 (1.1-1.8); Alkaline Phosphatase 88 U/L (45-117); Anion Gap 8.4 mEq/L (5.0-15.0); BUN Blood Urea Nitrogen 9 mg/dL (7-18); Globulin 5.2 g/dL (2.3-3.5); Glucose Level 103 mg/dL (74-106); Magnesium 2.2 mg/dL (1.6-2.4); NT PRO-BNP 32 pg/mL (<125); Potassium 3.4 mEq/L (3.5-5.1); Troponin High Sensitivity 3.5 pg/mL (<58.9)
[2025-01-15 13:49] LABS: Bilirubin Indirect, Calculated 0.2 mg/dL (0.2-0.8)
--- NOTE | 2025-01-15 14:03 | ER ---
Nurse's Notes [facility] Name: Edmond Dewitt Age: 29 yrs Sex: Female : 1995 Arrival Date: 01/15/2025 Time: 11:26 Bed 8 Private MD: Diagnosis: Viral infection, unspecified Presentation: 01/15 11:49 Chief complaint: Patient states: SHE BEGAN HAVING BODY ACHES, DIARRHEA, CHILLS, COUGH dd2 AND RUNNY NOSE. TESTED NEGATIVE FOR COVID AND TODAY BEGAN HAVING CHEST PAIN, NAUSEA AND A HEADACHE TODAY. Coronavirus screen: chills, cough unrelated to allergies, diarrhea, headache, muscle pain, nausea, runny nose. Ebola Screen: No symptoms or risks identified at this time. Initial Sepsis Screen: Does the patient meet any 2 criteria? No. Patient's initial sepsis screen is negative. Does the patient have a suspected source of infection? No. Patient's initial sepsis screen is negative. Risk Assessment: Do you want to hurt yourself or someone else? Patient reports no desire to harm self or others. Onset of symptoms was January 14, 2025. 11:49 Method Of Arrival: Ambulatory dd2 11:49 Acuity: SHADY 3 dd2 Triage Assessment: 11:52 Headache History: The patient has had previous headaches and this one is similar to dd2 previous episodes. General: Appears in no apparent distress. uncomfortable, Behavior is calm, cooperative, appropriate for age. Pain: Complains of pain in HEAD, LT LEG, LT UPPER CHEST Pain currently is 9 out of 10 on a pain scale. Pain began 1 day ago. Also complains of no other associated symptoms. EENT: Reports nasal discharge that is watery. Neuro: Reports headache. Respiratory: Reports shortness of breath cough that is. Historical: - Allergies: 11:51 Bentyl; dd2 11:51 dicyclomine; dd2 11:51 Ketorolac; dd2 11:51 metoclopramide HCl; dd2 11:51 Morphine; dd2 11:51 Ondansetron HCl; dd2 11:51 Sulfa (Sulfonamide Antibiotics); dd2 11:51 Tramadol HCl; dd2 11:52 Ibuprofen; dd2 - PMHx: 11:51 brain lesions; CHF; DVT (PCOS); Migraines; PCOS; dd2 - PSHx: 11:51 section; gastric sleeve; dd2 - Immunization history:: Adult Immunizations unknown. - Infectious Disease History:: Denies. - Social history:: Smoking status: Patient denies any tobacco usage or history of. Screenin:15 [facility] ED Fall Risk Assessment (Adult) History of falling in the last 3 months, ap3 including since admission No falls in past 3 months (0 pts) Confusion or Disorientation No (0 pts) Intoxicated or Sedated No (0 pts) Impaired Gait No (0 pts) Mobility Assist Device Used No (0 pt) Altered Elimination No (0 pt) Score/Fall Risk Level 0 - 2 = Low Risk Oriented to surroundings, Maintained a safe environment, Educated pt \T\ family on fall prevention, incl call for assistance when getting out of bed, Assessed \T\ reinforced patient's understanding of fall precautions, Hourly rounding (assess needs \T\ fall precautionary measures) done, Used ambulatory aids as needed (educated on \T\ assisted with). Abuse screen: Denies threats or abuse. Nutritional screening: No deficits noted. Tuberculosis screening: No symptoms or risk factors identified. Assessment: 13:14 General: Appears in no apparent distress. Behavior is calm, cooperative, appropriate ap3 for age. Pain: Complains of pain in head and chest. Neuro: Level of Consciousness is awake, alert, obeys commands, Oriented to person, place, time, situation, Appropriate for age. Neuro: Reports headache. Cardiovascular: Patient's skin is warm and dry. Respiratory: Airway is patent Respiratory effort is even, unlabored, Respiratory pattern is regular, symmetrical. Vital Signs: 11:49 BP 124 / 85; Pulse 87; Resp 16; Temp 98.6(O); Pulse Ox 99% on R/A; dd2 13:43 BP 110 / 80; Pulse 64; Resp 15; Pulse Ox 98% ; jl7 [place] Coma Score: 14:04 Eye Response: spontaneous(4). Motor Response: obeys commands(6). Verbal Response: sb4 oriented(5). Total: 15. ED Course: 11:29 Patient arrived in ED. im 11:29 Meena Hunter PA-C is PHCP. sb4 11:29 Opal Richard MD is Attending Physician. sb4 11:51 Triage completed. dd2 11:52 Arm band placed on right wrist. dd2 12:09 Extremity Venous Uni Ltd US In Process Unspecified. EDMS 12:53 XRAY Chest (1 view) In Process Unspecified. EDMS 13:02 Loly Esposito, RN is Primary Nurse. ap3 13:02 EKG done, by ED staff, reviewed by Meena Hunter PA-C. ap3 13:13 Accessed peripheral vein via ultrasound, utilizing dynamic ultrasound technique using ss 20G Nexia IV catheter ,sterile technique, per hospital protocol. Clean \T\ dry. Dressing intact. Good blood return. Flushes easily. 20 gauge to R AC. 13:15 Patient has correct armband on for positive identification. Bed in low position. Call ap3 light in reach. Side rails up X 1. Provided Education on: call light education . Client placed on continuous cardiac and pulse oximetry monitoring. NIBP monitoring applied. deburring machine operator on. Pulse ox on. NIBP on. 14:18 No provider procedures requiring assistance completed. IV discontinued, intact, ss bleeding controlled, No redness/swelling at site. Pressure dressing applied. Administered Medications: 14:16 Drug: Acetaminophen PO 1000 mg PO once Route: PO; ss 14:18 Follow up: Response: Medication Administered at Departure Outcome: 14:03 Discharge ordered by . sb4 14:18 Discharged to home ambulatory, 14:18 Condition: good 14:18 Discharge instructions given to patient, Instructed on discharge instructions, follow up and referral plans. Demonstrated understanding of instructions, follow-up care, 14:19 Patient left the ED. ss Signatures: Dispatcher [employer] EDWI Joan Cortes RN RN ss Kendrick Knapp RN RN jl7 Loly Esposito, RN RN Meena Hemphill PA-C PA-C sb4 Geetha De Leon DIANA, RN RN dd2 Corrections: (The following items were deleted from the chart) 14:18 14:18 IV discontinued, intact, bleeding controlled, No redness/swelling at site. ss ss
--- NOTE | 2025-01-15 14:03 | EDPHYS ---
Physician Documentation [facility] Name: Edmond Dewitt Age: 29 yrs Sex: Female : 1995 Arrival Date: 01/15/2025 Time: 11:26 Bed 8 Private MD: ED Physician Opal Richard HPI: 01/15 12:20 This 29 yrs old Black Female presents to ER via Ambulatory with complaints of Headache, sb4 Chest Pain. 12:45 Patient states that she started experiencing flulike symptoms yesterday -nausea, sb4 headache, diarrhea, body aches. 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 States that she did an at-home COVID test and that was negative. States that today, she started experience feeling chest pain and could not get her headache to go away. She states that she does have history of vasculitis, CHF, DVT so wanted to be evaluated. Historical: - Allergies: 11:51 Bentyl; dd2 11:51 dicyclomine; dd2 11:51 Ketorolac; dd2 11:51 metoclopramide HCl; dd2 11:51 Morphine; dd2 11:51 Ondansetron HCl; dd2 11:51 Sulfa (Sulfonamide Antibiotics); dd2 11:51 Tramadol HCl; dd2 11:52 Ibuprofen; dd2 - PMHx: 11:51 brain lesions; CHF; DVT (PCOS); Migraines; PCOS; dd2 - PSHx: 11:51 section; gastric sleeve; dd2 - Immunization history:: Adult Immunizations unknown. - Infectious Disease History:: Denies. - Social history:: Smoking status: Patient denies any tobacco usage or history of. ROS: 12:45 Skin: Negative for injury, rash, and discoloration, sb4 12:45 Constitutional: Positive for body aches, malaise, 12:45 Cardiovascular: Positive for chest pain, 12:45 Respiratory: Positive for shortness of breath, 12:45 Abdomen/GI: Positive for nausea, diarrhea, 12:45 Neuro: Positive for headache, 12:45 All other systems are negative, Exam: 12:45 Constitutional: This is a well developed, well nourished patient who is awake, alert, sb4 and in no acute distress. Head/Face: Normocephalic, atraumatic. Eyes: Extra-ocular motions intact. Periorbital areas with no swelling, redness, or edema. ENT: Mucous membranes moist. Cardiovascular: Regular rate and rhythm with a normal S1 and S2. Respiratory: No increased work of breathing, no retractions or nasal flaring. Abdomen/GI: Soft, non-tender, no distension. Skin: Warm, dry with normal turgor. Normal color with no rashes, no lesions, and no evidence of cellulitis. 12:45 Respiratory: Breath sounds: are clear throughout, Vital Signs: 11:49 BP 124 / 85; Pulse 87; Resp 16; Temp 98.6(O); Pulse Ox 99% on R/A; dd2 13:43 BP 110 / 80; Pulse 64; Resp 15; Pulse Ox 98% ; jl7 [place] Coma Score: 14:04 Eye Response: spontaneous(4). Motor Response: obeys commands(6). Verbal Response: sb4 oriented(5). Total: 15. MDM: 11:30 Medical Screening Exam initiated sb4 14:04 Data reviewed: vital signs, nurses notes, lab test result(s), EKG, radiologic studies, sb4 and as a result, I will discharge patient. Counseling: I had a detailed discussion with the patient and/or guardian regarding the historical points, exam findings, and any diagnostic results supporting the discharge/admit diagnosis, lab results, radiology results, the need for outpatient follow up, for definitive care, to return to the emergency department if symptoms worsen or persist or if there are any questions or concerns that arise at home. 01/15 11:53 Order name: Basic Metabolic Panel; Complete Time: 13:49 sb4 01/15 11:53 Order name: CBC with Diff; Complete Time: 13:32 sb4 01/15 11:53 Order name: LFT's; Complete Time: 13:49 sb4 01/15 11:53 Order name: Magnesium; Complete Time: 13:49 sb4 01/15 11:53 Order name: NT PRO-BNP; Complete Time: 13:49 sb4 01/15 11:53 Order name: PT-INR; Complete Time: 13:32 sb4 01/15 11:53 Order name: Troponin HS; Complete Time: 13:49 sb4 01/15 11:53 Order name: COVID-19 Ag + Flu A+B Ag; Complete Time: 13:45 sb4 01/15 11:53 Order name: Group A Streptococcus Rapid; Complete Time: 13:33 sb4 01/15 13:35 Order name: Throat Culture EDPA 01/15 11:53 Order name: XRAY Chest (1 view); Complete Time: 13:08 sb4 01/15 11:53 Order name: Extremity Venous Uni Ltd US; Complete Time: 12:25 sb4 01/15 11:53 Order name: Cardiac monitoring; Complete Time: 13:16 sb4 01/15 11:53 Order name: EKG - Nurse/Tech; Complete Time: 13:03 sb4 01/15 11:53 Order name: IV Saline Lock; Complete Time: 13:12 sb4 01/15 11:53 Order name: Labs collected and sent; Complete Time: 13:12 sb4 01/15 11:53 Order name: O2 Per Protocol; Complete Time: 13:03 sb4 01/15 11:53 Order name: O2 Sat Monitoring; Complete Time: 13:03 sb4 EC:04 Rate is 77 beats/min. Rhythm is regular, Normal Sinus Rhythm. [place] interval is normal at sb4 164 msec. QRS interval is normal at 74 msec. QT interval is normal at 362 msec. No Q waves. T waves are Normal. No ST changes noted. Clinical impression: Normal ECG. Interpreted by me. Reviewed by me. Administered Medications: 14:16 Drug: Acetaminophen PO 1000 mg PO once Route: PO; 14:18 Follow up: Response: Medication Administered at Departure Disposition Summary: 01/15/25 14:03 Discharge Ordered Notes: Location: Home sb4 Problem: new sb4 Symptoms: have improved sb4 Condition: Stable sb4 Diagnosis - Viral infection, unspecified sb4 Followup: sb4 - With: Emergency Department - When: As needed - Reason: Trouble breathing, Worsening of condition Discharge Instructions: - Discharge Summary Sheet sb4 - Viral Illness, Adult sb4 Forms: - Work release form sb4 - Patient Portal Instructions sb4 - Leadership Thank You Letter sb4 Signatures: Dispatcher [employer] EDPA Joan Cortes RN RN ss Loly Esposito RN RN Meena Hemphill PA-C PAAmaya sb4 PAULA PADILLA RN RN dd2 Corrections: (The following items were deleted from the chart) 11: 11:53 Chest Single View+RAD.RAD.BRZ ordered. EDMS EDMS 11:53 11:53 Extremity Venous Uni Ltd+US.RAD.BRZ ordered. EDMS EDMS 11: 11:54 COVID-19 Ag + Flu A+B Ag+I.LAB.BRZ ordered. EDMS EDMS 11: 11:54 Group A Streptococcus Rapid Sc+I.LAB.BRZ ordered. EDMS EDMS
[2025-01-15] MEDS ORDERED: ACETAMINOPHEN 500 MG TAB ONE (14:10)
[2025-01-15 14:53] VITALS: TEMP 98.6
[2025-01-15 14:55] VITALS: BP 110/80; O2SAT 98
== END 2025-01-15 14:19 | disposition home or self-care (01) ==
LOC: ER 11:26
DX: B34.9 Viral infection, unspecified (principal); Z11.52 Encounter for screening for COVID-19
CPT/HCPCS: 36415; 71045; 80048; 80076; 83735; 83880; 84484; 85025; 85610; 87070; 87428; 93005; 93971; 99285